=== PATIENT | male | born 1945 | race Caucasian/White ===

== ENCOUNTER 2022-05-20 16:17 | Emergency (ER) | payer MEDICARE, SELFPAY ==
[2022-05-20 16:18] VITALS: BP 144/99; PULSE 120; RESP 16; TEMP 36.2; O2SAT 97; BMI 32.3
--- NOTE | 2022-05-20 16:59 | CT_ITS ---
STUDY: CT ABDOMEN AND PELVIS WITHOUT CONTRAST REASON FOR EXAM: Male, 77 years old. Flank pain -- Right flank pain. History of kidney stones RADIATION DOSAGE (If Supplied By Facility): CTDIvol = ( 21.46 ) mGy, DLP = ( 1115.07 ) mGycm TECHNIQUE: Transaxial images were obtained from the dome of the diaphragm to the symphysis pubis without oral contrast, and without intravenous contrast. Sagittal and coronal images were reconstructed. Individualized dose optimization techniques were used for this CT. COMPARISON: January 28, 2013 FINDINGS: The visualized lung bases are unremarkable. Cardiomegaly. Calcific coronary artery disease. Calcific granulomas noted throughout the liver and spleen. Normal gallbladder and extrahepatic biliary system. Normal pancreas. Normal bilateral adrenal glands. Punctate nonobstructing nephrolith on the right x2. 19 mm simple left renal cortical cyst. Normal visualized stomach. Normal small intestine. Increased stool throughout the colon. Colonic diverticulosis. The appendix is visualized and appears normal. Normal abdominal aorta. Normal inferior vena cava. Normal retroperitoneum. Normal urinary bladder. Bilateral fat-containing inguinal hernias. Fat-containing umbilical hernia. Multiple phleboliths in the pelvis.. Mild scoliosis. Multilevel vacuum disc phenomena and spondylosis. Total arthroplasty on the right. CT/Abdomen/Pelvis without Cont IMPRESSION: Punctate nonobstructive nephrolithiasis on the right. Electronically Signed: Gomez Kasper MD at 18:02 EST ,
--- NOTE | 2022-05-20 17:00 | ED.VIS.GI ---
HPI HPI - GI History of Present Illness Chief Complaint: Flank Pain Detail of Chief Complaint: Right flank pain for 4 to 5 days. Informant: patient Abdominal Pain/Flank Pain Onset: Days Context: Gradual Onset Timing: Intermittent Location: Right Flank Current Severity: Gone Maximum Severity: Moderate Worsened by: Nothing Relieved by: Nothing Nausea/Vomiting/Emesis GI Symptom: Negative for Nausea or Vomiting Diarrhea/Melena/Hematochezia GI Symptom: Negative for Diarrhea, Melena or Hematochezia Associated Symptoms Associated Symptoms: Negative for Dysuria, Frequency, Hematuria or Urgency Narrative Narrative: 77-year-old male history of prior kidney stone 25 years ago. No surgery. Also history of [id number] diabetes, A. fib on warfarin. States for the last 4 to 5 days has had intermittent right flank pain that radiates to his groin. No dysuria or hematuria. No difficulty urinating. No fever or chills. Denies any nausea, vomiting or diarrhea. Currently he is pain-free. Prior similar symptoms: Yes Recent Illness/Hospitalization: No PFSH PFSH Medical History (Updated 05/20/22 @ 20:[address] Ector Barakat MD) Atrial fibrillation Diabetes Hypertension Kidney stones Home Medications atorvastatin 40 mg tablet 40 mg PO QHS 05/20/22 [History Last Taken Unknown] glimepiride 2 mg tablet 2 mg PO DAILY 05/20/22 [History Last Taken Unknown] losartan 50 mg tablet 100 mg PO DAILY 05/20/22 [History Last Taken Unknown] metformin 500 mg tablet 1,000 mg PO BID 05/20/22 [History Last Taken Unknown] metoprolol succinate 100 mg tablet,extended release 24 hr 100 mg PO DAILY 05/20/22 [History Last Taken Unknown] warfarin 2 mg tablet 4 mg PO SUTUTHSA 05/20/22 [History Last Taken Unknown] warfarin 2 mg tablet 6 mg PO QMWF 05/20/22 [History Last Taken Unknown] Allergy/AdvReac Type Severity Reaction Status Date / Time No Known Allergies Allergy Verified 05/20/22 16:18 Social History Smoking Status: Former smoker ROS ROS ED ROS Narrative Intermittent right flank pain. Review of Systems ROS Unobtainable: Denies due to encephalopathy Constitutional Constitutional ED: Denies chills or fever(s) ENT ENT ED: Denies ear pain Cardiovascular Cardiovascular: Denies chest pain Respiratory/Chest Respiratory/Chest: Denies cough or dyspnea Gastrointestinal Gastrointestinal: Reports abdominal pain Genitourinary Genitourinary ED: Denies dysuria or hematuria Musculoskeletal Musculoskeletal: Reports back pain; Denies arthralgias Integumentary Denies abscess Neurologic Neurologic: Denies headache(s) Psychiatric Psychiatric: Denies anxiety Endocrine Endocrinology: Denies polydipsia Hematologic/Lymphatic Hematologic/Lymphatic: Denies easy bleeding Allergic/Immunologic Allergic/Immunologic ED: Denies mouth swelling or tongue swelling EXAM Physical Exam Narrative Exam Narrative: 77-year-old male no acute distress. Vital signs stable afebrile. H EENT exam unremarkable. Moist Riis membranes. Neck nontender no lymphadenopathy. Lungs clear to auscultation. Heart regular rhythm no murmur. Abdomen soft nontender. Normal bowel sounds no peritoneal signs. Patient moving all 4 extremities. Neurovascular intact. Nontender no edema. Back nontender. Neurologically is awake and alert. No focal motor deficits. Const Vital Signs: 05/20/22 16:18 05/20/22 18:11 Temperature 97.2 F L Temperature Source Temporal Pulse Rate 120 H Respiratory Rate 16 16 Blood Pressure 144/99 H Blood Pressure Mean 114 Pulse Ox 97 Oxygen Delivery Method Room Air Positive well nourished, well developed and obese; Negative for cachectic, contractures or unkempt General Appearance ED: well developed and NAD; Negative for unkempt, cachectic, contractures or pallor Nutritional Appearance: obese; Negative for cachectic HEENT Reports moist mucous membranes normocephalic and atraumatic; Negative for trauma or tenderness Eyes PERRL and EOMs intact bilaterally General Eye ED: Negative for pale conjunctiva or scleral icterus Neck no lymphadenopathy, supple and no JVD General: Negative for tenderness Carotids: Negative for other Lymph Lymphatic: Negative for other Resp normal respiratory effort and clear to auscultation bilaterally Effort and Inspection: Negative for respiratory distress Auscultation: Negative for rales, rhonchi or wheezes Cardio regular rate, regular rhythm, S1 normal heart sound, S2 normal heart sound and no murmurs Rate: Negative for bradycardia Rhythm: Negative for abnormal rhythm GI non-tender, non-distended and no masses Inspection: Negative for abdominal distention Auscultation: normoactive bowel sounds Palpation: soft; Negative for tender, guarding or rigid Back/Spine no CVA tenderness General Back: Negative for CVA tenderness Cervical Spine: Negative for cervical spine tenderness Thoracic Spine / Upper Back: Negative for thoracic spinal tenderness Lumbar Spine / Lower Back: Negative for lumbar spinal tenderness Coccyx: Negative for other Extremity full ROM General Extremety ED: Negative for edema or tenderness General Extremity: Negative for edema Neuro CN's II-XII intact bilaterally and moves all extremities Sensorium / Orientation: alert, oriented to person, oriented to place and oriented to time; Negative for orientation impaired, confused, lethargic or stuporous Motor Exam: strength 5/5 throughout; Negative for general weakness Psych mental status grossly normal and thought process normal Appearance: Negative for unkempt Attitude: No agitated Mood & Affect: Negative for depressed, anxious or tearful Skin no wounds General Skin Exam: Negative for jaundice or pallor Lesions: no lesions Rashes: no rashes Trauma: Negative for abrasion Nails: Negative for discolored MDM MDM MDM Narrative Medical decision making narrative: 77-year-old male with right flank pain. Kidney stone 25 years ago. No prior surgery for that. Having intermittent right flank pain. CAT scan labs pending. Currently does not want or need anything for pain or nausea. Repeat exam patient doing well at 8:05 PM. He and I went over his CAT scan and lab results. On repeat exam it appears that this is musculoskeletal right flank and paravertebral soft tissue pain. He will be discharged home. Tylenol for pain. Hot shower, warm bath and massage. Follow-up if not improving or return if worse. Lab Data Attestation: I reviewed the patient's lab results. Lab results narrative: CBC unremarkable white count 10.8. H&H 13.5 and 41. Electrolytes show a gap of 4 BUN of 25 creatinine 1.1. Glucose 121. UA negative no white or red cells. No nitrates nor bacteria. CAT scan shows a right renal stone but no acute ureteral calculi or obstruction. Read by the radiologist. Labs: Laboratory Results - last 24 hr 05/20/22 05/20/22 05/20/22 17:10 17:13 17:13 WBC 10.8 RBC 4.38 L Hgb 13.5 Hct 41.4 MCV 94.5 H MCH 30.8 MCHC 32.6 RDW Std Deviation 47.2 H RDW Coeff of Risa 13.6 Plt Count 276 MPV 10.6 Immature Gran % (Auto) 0.400 Neut % (Auto) 68.7 Lymph % (Auto) 21.7 [place] % (Auto) 8.0 Eos % (Auto) 0.8 Baso % (Auto) 0.4 Absolute Neuts (auto) 7.4 Absolute Lymphs (auto) 2.34 Nucleated RBC % 0 Sodium 141 Potassium 4.5 Chloride 106 Carbon Dioxide 31.0 Anion Gap 4 L BUN 25 H Creatinine 1.16 Estim Creat Clear Calc 59.46 Est GFR (MDRD) Af Amer 79 Est GFR (MDRD) Non-Af 65 BUN/Creatinine Ratio 21.6 H Glucose 121 H Calcium 9.6 Total Bilirubin 0.60 AST 17 ALT 29 Alkaline Phosphatase 57 Total Protein 8.1 Albumin 4.0 Globulin 4.1 Albumin/Globulin Ratio 1.0 Urine Color Yellow Urine Clarity Clear Urine pH 6.5 Ur Specific [place] 1.020 Urine Protein 15 H Urine Glucose (UA) Normal Urine Ketones Negative Urine Occult Blood 10 H Urine Nitrite Negative Urine Bilirubin Negative Urine Urobilinogen 1 H Ur Leukocyte Esterase Negative Urine RBC 0-5 SEEN Urine WBC 0 SEEN Ur Squamous Epith Cells 0 SEEN Urine Bacteria 0 SEEN Urine Mucus 0 SEEN Radiography Diagnostic Testing: Clinical Impression(s) from Imaging Studies Abdomen/Pelvis CT 05/20/22 16:59 IMPRESSION: Punctate nonobstructive nephrolithiasis on the right. Electronically Signed: Gomez Kasper MD at 18:02 EST Reading Location ID and State: [address] [place] [address] , Service support , Discharge Plan Triage Chief Complaint: Flank Pain ED Provider: Ector Barakat Dx/Rx/DC Orders Clinical Impression: Right flank pain, Musculoskeletal strain, History of diabetes mellitus, Chronic anticoagulation Instructions: ED Flank Pain, Uncertain Cause Prescriptions: No Action losartan 50 mg tablet 100 mg PO DAILY atorvastatin 40 mg tablet 40 mg PO QHS Label Comments: TAKE 1 TABLET BY MOUTH AT BEDTIME metformin 500 mg tablet 1,000 mg PO BID metoprolol succinate 100 mg tablet extended release 24 hr 100 mg PO DAILY glimepiride 2 mg tablet 2 mg PO DAILY warfarin [Coumadin] 2 mg Tablet 6 mg PO QMWF warfarin [Coumadin] 2 mg Tablet [facility] Primary Care Provider: Care Physician,No Primary Referrals: Diony Pinto MD [Med Staff - Industrial Manufacturing Technician] - 1 Week if not improving Care Physician,No Primary [Primary Care Provider] - Activity Restrictions/Additional Instructions: Your labs and CAT scan were unremarkable. Most likely this is musculoskeletal strain of your right lower back and flank. Hot shower, warm bath and massage and this should progressively improve. Tylenol for pain. Follow-up with your primary care provider if not improving. Disposition Disposition: Home, Self Care
[2022-05-20 17:24] LABS: Bacteria 0 SEEN /hpf (None Seen); Mucous, Urine 0 SEEN /hpf (<or=2+); Squamous Epithelial Cells - UA 0 SEEN /hpf (0-5); White Blood Cells 0 SEEN /hpf (0-5)
[2022-05-20 17:27] LABS: Absolute Lymphocyte Count 2.34 X10^3/uL (0.83-4.51); Absolute Neutrophil Count 7.4 X10^3/uL (2.0-7.7); Basophil# 0.04 X10^3/uL; Basophil% 0.4 % (0-1); Eosinophil# 0.09 X10^3/uL; Eosinophils% 0.8 % (0-5); Hematocrit 41.4 % (40-54); Hemoglobin 13.5 g/dL (13.0-16.5); Lymphocyte # 2.34 X10^3/ul (0.83-4.51); Lymphocyte % 21.7 % (19-41); Mean Corp Hgb Conc 32.6 g/dL (32-36); Mean Corpuscular Hgb 30.8 pg (27.0-32.0); Mean Corpuscular Volume 94.5 fL (80-94); Mean Platelet Vol. 10.6 fl (6.2-12.0); Monocyte# 0.86 X10^3/uL; NRBC Flagged by Analyzer 0 % (0-5); Neutrophil # 7.41 X10^3/uL (2.7-7.7); Neutrophil % 68.7 % (47-70); Platelet Count 276 K/mm3 (150-450); RBC Distribution Width CV 13.6 % (11.6-14.6); RBC Distribution Width SD 47.2 fl (35.1-43.9); Red Blood Count 4.38 M/mm3 (4.6-6.2); White Blood Count 10.8 K/mm3 (4.4-11.0)
[2022-05-20 17:27] LABS: Color, Urine Yellow (Yellow); Glucose, Dipstick Normal (Normal); Ketone-Dipstick Negative (Negative); Leukocyte Esterase-Dipstick Negative /ul (Negative); Nitrite-Dipstick Negative (Negative); Occult Blood-Urine 10 /ul (Negative); Protein-Dipstick 15 mg/dl (Negative); Urine Bilirubin Dipstick Negative (Negative); Urine Clarity Clear (Clear); Urine Urobilinogen 1 mg/dl (Normal); Urine pH 6.5 (5.0 - 8.0)
[2022-05-20 17:41] LABS: AST(SGOT) 17 U/L (15-37); Alanine Aminotransfer ALT/SGPT 29 U/L (16-61); Alkaline Phosphatase 57 U/L (45-117); Anion Gap 4 (5-15); BUN 25 mg/dL (7-18); BUN/Creat Ratio 21.6 RATIO (10-20); Calcium,Total 9.6 mg/dL (8.5-10.1); Chloride 106 mmol/L (98-107); Creatinine, Serum 1.16 mg/dL (0.70-1.30); EST Glomerular Filtration Rate 65 mL/min (>60); Est Glom Filt Rate - Afr Amer 79 mL/min (>60); Estimated Creatinine Clearance 59.46 ml/min; Globulin 4.1 g/dL (2.2-4.2); Glucose 121 mg/dL (74-106); Potassium 4.5 mmol/L (3.5-5.1); Protein, Total 8.1 g/dL (6.4-8.2); Sodium Level 141 mmol/L (136-145)
[2022-05-20 18:11] VITALS: RESP 16
[2022-05-20 18:20] LABS: Red Blood Cells-Urine 0-5 SEEN /hpf (0-5)
--- NOTE | 2022-05-20 19:40 | CM.ED ---
SW Note Referral Source: Case Find Referral Reason: No PCP SW met with patient and introduced herself as a Data Acquisition Technician. SW inquired about patient's current PCP. Patient explained his PCP is in [place], however, he was considering changing PCPs to avoid the drive. SW provided patient with information regarding [facility] and [facility] PCPs, patient was receptive towards information provided. Chela Bazzi MSW, NASRA
== END 2022-05-20 20:19 | disposition home or self-care (01) ==
PROVIDERS: Emergency Provider Emergency Medicine; Visit Provider Emergency Medicine
DX: R10.9 Unspecified abdominal pain (principal); I48.91 Unspecified atrial fibrillation; E11.9 Type 2 diabetes mellitus without complications; E66.9 Obesity, unspecified; I10 Essential (primary) hypertension; Z79.01 Long term (current) use of anticoagulants; Z79.84 Long term (current) use of oral hypoglycemic drugs; Z87.891 Personal history of nicotine dependence
CPT/HCPCS: 74176; 80053; 81001; 85025; 99283; A4216

== ENCOUNTER 2024-09-20 17:33 | Inpatient (IN) | payer MEDICARE, SELFPAY ==
[2024-09-20] VITALS (24 sets, daily range): BP systolic 117–172; BP diastolic 54–88; PULSE 107–143; RESP 20–36; TEMP 36.8–37.6; O2SAT 90–98; BMI 29.7; BMI 29.2
--- NOTE | 2024-09-20 18:14 | EKG12_ITS ---
Test Reason : SOB Blood Pressure : */* mmHG Vent. Rate : 108 BPM Atrial Rate : * BPM P-R Int : * ms QRS Dur : 126 ms QT Int : 348 ms P-R-T Axes : * -14 26 degrees QTcB Int : 466 ms Atrial fibrillation with rapid ventricular response Right bundle branch block Abnormal ECG Confirmed by RODGER RUIZ, JDA ([id number]), offline editor WENDY PACHECO ([id number]) on 09/21/2024 8:30:42 AM Referred By: Confirmed By: JAD SOARES MD
[2024-09-20] MEDS: MethylPREDNISolone 125 MG/2 ML Vial IV (18:25)
[2024-09-20] MEDS: 0.9% Normal Saline (1000mL) 1,000 ML 999 ML IV (18:25)
[2024-09-20 18:26] LABS: Absolute Lymphocyte Count 0.66 X10^3/uL (0.83-4.51); Absolute Neutrophil Count 11.7 X10^3/uL (2.0-7.7); Basophil# 0.05 X10^3/uL; Basophil% 0.4 % (0-1); Eosinophil# 0.05 X10^3/uL; Eosinophils% 0.4 % (0-5); Hematocrit 38.4 % (40-54); Lymphocyte # 0.66 X10^3/ul (0.83-4.51); Lymphocyte % 4.8 % (19-41); Mean Corp Hgb Conc 33.9 g/dL (32-36); Mean Corpuscular Hgb 31.7 pg (27.0-32.0); Mean Corpuscular Volume 93.7 fL (80-94); Mean Platelet Vol. 11.4 fl (6.2-12.0); Monocyte# 1.33 X10^3/uL; Monocyte% 9.6 % (0-10); NRBC Flagged by Analyzer 0 % (0-5); Neutrophil # 11.66 X10^3/uL (2.7-7.7); Neutrophil % 84.1 % (47-70); POSITIVE MORPHOLOGY YES; Platelet Count 209 K/mm3 (150-450); RBC Distribution Width CV 14.4 % (11.6-14.6); RBC Distribution Width SD 49.1 fl (35.1-43.9); White Blood Count 13.8 K/mm3 (4.4-11.0)
[2024-09-20 18:28] LABS: Differential Indicated SCAN CRITERIA MET
[2024-09-20] MEDS: Ipratropium/Albuterol Sulfate 3 ML AMPUL.NEB 9 ML INHALATION (18:36)
--- NOTE | 2024-09-20 18:41 | ED.VIS.DYS ---
HPI History of Present Illness Chief Complaint: Shortness of Breath Narrative Narrative: Chief complaint and HPI: Shortness of breath, body aches, cough. Patient is a very poor historian. 79-year-old male with past medical history of atrial fibrillation on Coumadin, DM, HLD, chronic low back pain presents for evaluation of shortness of breath, cough, body aches. Onset of symptoms this weekend. has similar symptoms. Patient endorses decreased p.o. intake. He denies any chest pain, abdominal pain, nausea, vomiting, diarrhea, dysuria. Review of systems: See HPI Medications: As listed on the chart Allergies: As listed on the chart PFSH: Per chart Vital signs: As listed on the chart. Reviewed. Physical exam: Gen: A&O x3 but poor historian, unwell appearing Head: Normocephalic, atraumatic Eyes: No sclera icterus, conjunctiva clear, PERRL, EOMI ENT: Moist mucous membranes Neck: Trachea midline, No JVD CV: Irregular irregular rhythm but tachycardic, no murmurs, no peripheral edema Resp: Lungs diminished bilaterally and coarse with wheezing, dyspneic, tachypneic GI: Abd soft, non-distended, non-tender, no r/r/g Musc: Full ROM, no deformity Skin: Warm, dry Neuro: Alert, oriented, grossly intact, sensation intact Psych: Cooperative, appropriate mood and affect [facility] Medical History Kidney stones Diabetes Atrial fibrillation Hypertension Home Medications ?Medication ?Instructions ?Recorded ?Last Taken ?Type atorvastatin 40 mg tablet 40 mg PO QHS CHOLESTEROL 05/20/22 Unknown History glimepiride 2 mg tablet 2 mg PO DAILY DIABETES 05/20/22 Unknown History losartan 50 mg tablet 100 mg PO DAILY BLOOD PRESSURE 05/20/22 Unknown History metformin 500 mg tablet 1,000 mg PO BID DIABETES 05/20/22 Unknown History metoprolol succinate 100 mg 100 mg PO DAILY BLOOD PRESSURE AND 05/20/22 Unknown History tablet,extended release 24 hr HEART RATE warfarin 2 mg tablet 4 mg PO SUTUTHSA 05/20/22 Unknown History warfarin 2 mg tablet 6 mg PO QMWF 05/20/22 Unknown History Allergy/AdvReac Type Severity Reaction Status Date / Time No Known Allergies Allergy Verified 09/20/24 17:36 Surgical History History of hip replacement History of knee replacement Social History Smoking Status: Former smoker EXAM Physical Exam Const Vital Signs: 09/20/24 17:34 09/20/24 17:36 09/20/24 17:57 Temperature 98.3 F 98.3 F Temperature Source Oral Oral Pulse Rate 124 H 124 H 121 H Respiratory Rate 36 H 36 H 36 H Respiratory Effort Respiratory Depth Respiratory Pattern Blood Pressure 140/83 H 140/83 H 139/71 H Blood Pressure Mean 102 102 93 Pulse Ox 92 92 93 Oxygen Delivery Method Room Air Room Air Room Air Fraction of Inspired Oxygen (FIO2) 09/20/24 17:57 09/20/24 18:18 09/20/24 18:36 Temperature Temperature Source Pulse Rate 141 H Respiratory Rate 36 H Respiratory Effort Short of Breath Labored Respiratory Depth Shallow Respiratory Pattern Tachypnea Tachypnea Blood Pressure Blood Pressure Mean Pulse Ox 93 Oxygen Delivery Method Room Air Room Air Fraction of Inspired Oxygen (FIO2) 09/20/24 18:42 09/20/24 19:00 09/20/24 19:05 Temperature 98.9 F 99.6 F H Temperature Source Oral Temporal Pulse Rate 138 H 143 H 137 H Respiratory Rate 24 H 30 H 34 H Respiratory Effort Respiratory Depth Respiratory Pattern Blood Pressure 172/81 H 172/61 H Blood Pressure Mean 111 98 Pulse Ox 93 92 90 Oxygen Delivery Method Room Air Room Air Fraction of Inspired Oxygen (FIO2) 09/20/24 19:15 09/20/24 19:21 09/20/24 19:30 Temperature Temperature Source Pulse Rate 139 H 137 H 133 H Respiratory Rate 34 H 36 H 29 H Respiratory Effort Respiratory Depth Respiratory Pattern Tachypnea Blood Pressure 146/87 H 140/84 H Blood Pressure Mean 102 99 Pulse Ox 97 96 Oxygen Delivery Method Airvo Fraction of Inspired Oxygen (FIO2) 28 09/20/24 19:31 09/20/24 20:00 Temperature 99.3 F H Temperature Source Pulse Rate 123 H 130 H Respiratory Rate 33 H 27 H Respiratory Effort Respiratory Depth Respiratory Pattern Blood Pressure 140/84 H 117/54 L Blood Pressure Mean 102 75 Pulse Ox 97 95 Oxygen Delivery Method Airvo Fraction of Inspired Oxygen (FIO2) MDM MDM MDM Narrative Medical decision making narrative: 79-year-old male with past medical history of atrial fibrillation on Coumadin, DM, HLD, chronic low back pain presents for evaluation of shortness of breath, cough, body aches. On presentation, patient is tachycardic with increased work of breathing. See physical exam findings. Differential diagnosis includes but is not limited to pneumonia, COVID-19 infection, influenza, electrolyte abnormality, CHRISS, UTI, ACS. Patient made a sepsis alert. NS bolus ordered. 30 cc/kg bolus not given given patient's respiratory status and concern for worsening decline of status. Patient is not hypotensive. Rocephin and azithromycin ordered for suspected pneumonia. Solu-Medrol and DuoNebs ordered for symptoms. If patient's increased work of breathing does not improve he will likely need BiPAP versus Airvo. Laboratory workup ordered including chest x-ray. EKG reviewed. CBC with leukocytosis of 13.8. No anemia. INR therapeutic at 2.8. CMP without significant electrolyte abnormality or CHRISS. Patient does have hyperglycemia. He is a known diabetic. No transaminitis. Lactic acid unremarkable. Troponin unremarkable. Chest x-ray concerning for pneumonia. Patient already received antibiotics. On reevaluation, patient still has increased work of breathing and his tachycardia has worsened to the 140s. VBG relatively unremarkable. Patient placed on Airvo instead of BiPAP. Although patient's tachycardia is likely responsive to his current infection we will give metoprolol to improve heart rate. Patient is positive for influenza. Tamiflu ordered. On reevaluation, patient's work of breathing has improved on Airvo. His tachycardia has improved to the 110s. Patient will warrant admission. He was updated of all the results and the plan. He confirmed understanding. Patient was discussed with Dr. Altamirano. He accepted admission however given chest x-ray read concerning for possible underlying mass he is recommending CT chest without PE ordered. This was ordered. Patient will be admitted to the ICU. EKG: Interpreted by me/EM physician: EKG shows atrial fibrillation with RVR. Right bundle branch block. Heart rate 108. Diagnostic: Interpreted by me/EM physician: Chest x-ray with bilateral pulmonary infiltrates. Concerning for pneumonia. Per radiology short-term follow-up is recommended if this persists, CT chest chest should be performed to rule out underlying mass. 35 minutes of critical care time utilized in managing the patient. This is due to high probability of and deterioration of the patient based on the patient's condition and excludes any separately billable procedures. Impression: 1. Sepsis secondary to pneumonia 2. Influenza A infection 3. A-fib with RVR 4. Hyperglycemia in known diabetic Lab Data Labs: Laboratory Results - last 24 hr 09/20/24 09/20/24 09/20/24 17:53 17:54 19:03 WBC 13.8 H RBC 4.10 L Hgb 13.0 Hct 38.4 L MCV 93.7 MCH 31.7 MCHC 33.9 RDW Std Deviation 49.1 H RDW Coeff of Risa 14.4 Plt Count 209 MPV 11.4 Immature Gran % (Auto) 0.700 Neut % (Auto) 84.1 H Lymph % (Auto) 4.8 L [place] % (Auto) 9.6 Eos % (Auto) 0.4 Baso % (Auto) 0.4 Absolute Neuts (auto) 11.7 H Absolute Lymphs (auto) 0.66 L Nucleated RBC % 0 Platelet Estimate A PT 30.1 H INR 2.8 APTT 52.3 H Sodium 133 Potassium 4.7 Chloride 98 Carbon Dioxide 21.5 Anion Gap 14 BUN 41 H Creatinine 1.19 Estim Creat Clear Calc 62.48 Est GFR (MDRD) Non-Af 63 BUN/Creatinine Ratio 34.2 H Glucose 248 H Hemoglobin A1c 6.9 Lactic Acid 1.1 Calcium 9.7 Total Bilirubin 0.79 AST 36 ALT 23 Alkaline Phosphatase 62 Troponin T High Sens 14 Total Protein 7.7 Albumin 4.0 Globulin 3.8 Albumin/Globulin Ratio 1.1 Urine Color Yellow Urine Clarity Clear Urine pH 6.0 Ur Specific [place] 1.020 Urine Protein 100 H Urine Glucose (UA) 250 H Urine Ketones Negative Urine Occult Blood 150 H Urine Nitrite Negative Urine Bilirubin Negative Urine Urobilinogen Normal Ur Leukocyte Esterase Negative Urine RBC 0-5 SEEN Urine WBC 0-5 SEEN Ur Squamous Epith Cells 0 SEEN Urine Bacteria 1+ Urine Mucus 0 SEEN Urine Opiates Screen NEGATIVE U Buprenorphine Qual NEGATIVE Ur Oxycodone Screen NEGATIVE Urine Methadone Screen NEGATIVE Urine Fentanyl Screen NEGATIVE Ur Barbiturates Screen NEGATIVE Ur Phencyclidine Scrn NEGATIVE Ur Amphetamines Screen NEGATIVE U Benzodiazepines Scrn NEGATIVE Urine Cocaine Screen NEGATIVE U Cannabinoids Screen NEGATIVE ABG Data ABG results: ABG 09/20/24 19:03 Specimen Type OSCAR Sample Site Not entered VBG pH 7.39 VBG pO2 33 VBG HCO3 25 VBG Total CO2 26 VBG O2 Sat (Calc) 62 VBG Base Excess -1 POC Mix VBG pCO2 Pt Tmp 40.8 L O2 Delivery Device Room Air Radiography Diagnostic Testing: Clinical Impression(s) from Imaging Studies Chest X-Ray 09/20/24 18:45 IMPRESSION: Bilateral pulmonary infiltrates particularly within the right hilar region. Short-term follow-up is recommended if this persists, CT chest should be performed to rule out underlying mass. No pneumothorax. Reading Location: [facility] Chest CT 09/20/24 19:45 IMPRESSION: Limited examination due to lack of IV contrast. Evaluation of hilar mass is limited. Large left lower lobe infiltrates highly worrisome for infectious process. Minor infiltrates seen within the right lower lobe which may also suggest infectious process. No definite right hilar mass is present. Lytic lesion within the right scapula may suggest metastatic disease versus myeloma. Nonobstructing right renal calculi. Short-term follow-up study with IV contrast is suggested. Other findings as above. Reading Location: [facility] Discharge Plan Disposition Disposition: Acute Care Hospital [facility] Discharge Date/Time: 09/20/24 20:44
--- NOTE | 2024-09-20 18:45 | RAD_ITS ---
PROCEDURE: CHEST 1 VIEW (PORTABLE) 09/20/2024 REASON FOR EXAM: SOB TECHNIQUE: Frontal view of the chest. COMPARISON: None. FINDINGS: The cardiac silhouette is mildly prominent. There are bilateral pulmonary infiltrates particularly within the right perihilar region. This is worrisome for infectious process. Recommend short-term follow- up until resolution. RAD/Chest 1 View (Portable) IMPRESSION: Bilateral pulmonary infiltrates particularly within the right hilar region. Sh ort-term follow-up is recommended if this persists, CT chest should be performed to rule out underlying mass. No pneumothorax. Reading Location: [id number]
[2024-09-20] MEDS: Ceftriaxone 2 GM in 0.9% Normal Saline (50mL MB+) 50 ML IV (18:52)
[2024-09-20 19:06] LABS: Mucous, Urine 0 SEEN /hpf (<or=2+); Squamous Epithelial Cells - UA 0 SEEN /hpf (0-5)
[2024-09-20 19:07] LABS: Blood Gas Specimen Type VEN; O2 Delivery Device Room Air; SITE Not entered; VBG BASE EXCESS -1 mmol/L (-1.0-3.5); VBG Bicarbonate 25 mmol/L (22-26); VBG PO2 33 mmHg (25-40); VBG SO2 62 % (50-70); VBG TCO2 26 mmol/L (23-33); VBG pCO2 40.8 mmHg (41-51); VBG pH 7.39 (7.32-7.42)
[2024-09-20 19:08] LABS: Lactic Acid 1.1 mmol/L (0.0-2.0)
[2024-09-20 19:08] LABS: ALB/GLOB Ratio 1.1 RATIO (0.9-2.4); AST(SGOT) 36 U/L (<=37); Alanine Aminotransfer ALT/SGPT 23 U/L (<=46); Alkaline Phosphatase 62 U/L (40-129); Anion Gap 14 (5-15); BUN 41 mg/dL (4-19); BUN/Creat Ratio 34.2 RATIO (10-20); Calcium,Total 9.7 mg/dL (7.6-11.0); Carbon Dioxide 21.5 mmol/L (21.0-32.0); Chloride 98 mmol/L (98-108); Creatinine, Serum 1.19 mg/dL (0.70-1.20); EST Glomerular Filtration Rate 63 (>60); Estimated Creatinine Clearance 62.48 ml/min (50-250); Globulin 3.8 g/dL (2.2-4.2); Glucose 248 mg/dL (70-99); Potassium 4.7 mmol/L (3.3-5.1); Protein, Total 7.7 g/dL (5.9-8.4); Sodium Level 133 mmol/L (133-145); Total Bilirubin 0.79 mg/dL (0.00-1.30); Troponin T High Sensitivity 14 ng/L (<=22)
[2024-09-20 19:11] LABS: Color, Urine Yellow (Yellow); Glucose, Dipstick 250 mg/dl (Normal); Ketone-Dipstick Negative (Negative); Leukocyte Esterase-Dipstick Negative /ul (Negative); Nitrite-Dipstick Negative (Negative); Occult Blood-Urine 150 /ul (Negative); Protein-Dipstick 100 mg/dl (Negative); Urine Bilirubin Dipstick Negative (Negative); Urine Clarity Clear (Clear); Urine Urobilinogen Normal (Normal)
[2024-09-20 19:19] LABS: Platelet Estimate A (ADEQ)
[2024-09-20 19:22] LABS: International Normalized Ratio 2.8; Prothrombin Time (Protime)PT. 30.1 SECONDS (11.7-14.9)
[2024-09-20 19:23] LABS: Partial Thromboplast Time 52.3 Seconds (24.1-36.2)
[2024-09-20 19:30] LABS: White Blood Cells 0-5 SEEN /hpf (0-5)
[2024-09-20 19:31] LABS: Bacteria 1+ /hpf (None Seen); Red Blood Cells-Urine 0-5 SEEN /hpf (0-5)
[2024-09-20] MEDS: Metoprolol Tartrate 5 MG/5 ML Vial IV (19:31)
[2024-09-20] MEDS: Azithromycin 500 MG in 0.9% Normal Saline (250mL Bag) 250 ML 255 MG IV (19:33)
[2024-09-20] MEDS: Oseltamivir Phosphate 75 MG Capsule PO (19:37)
--- NOTE | 2024-09-20 19:43 | PCM.HP.STD ---
[facility] - General General Date of Admission: 09/20/24 Date of Service: 09/20/24 Chief Complaint: SOB, Cough and Body Aches. HPI Narrative HATTIE VALDERRAMA, is a 79 M with a past medical history of essential hypertension; on losartan and metoprolol, history of hyperlipidemia; currently not on treatment, overweight; with BMI of 29.7 this admission, remote history of tobacco abuse (quit 1979), chronic atrial fibrillation; on warfarin, DM-2; of unknown control on metformin and glimepiride, history of renal calculi; most recent (2021 on the Right) and OA; with history of THR and TKR chronic low back pain who presents to [facility] ER complaining of shortness of breath, cough and body aches. Mr. Valderrama is a suboptimal historian at this time so information was gathered from chart, medical staff, computer and his at the bedside. According to the records he began to become ill over the weekend on Thursday, September 20, 2024 with a viral upper respiratory illness that progressively worsened with his then becoming sick with a similar viral upper respiratory illness later in the weekend. His reported to the ER provider that he had decreased oral intake and malaise with nonproductive cough and increasingly labored respirations. There is no report of fever, chills, nausea, vomiting, diarrhea, constipation, abdominal pain, dysuria, chest pain, rash or headache. In the ER his viral assay returned positive for Influenza A complicated by chest x-ray positive for bilateral pulmonary infiltrates particularly within the Right hilar region consistent with (suspected bacterial) Pneumonia with CT recommended to rule out underlying mass with a corresponding Leukocytosis of 13.8 K, low-grade Fever of 99.6 ?F and irregularly irregular pulse of ~143 bpm noted shortly after admission consistent with suspected Sepsis compounded by Atrial Fibrillation; with Rapid Ventricular Response (with INR of 2.8 present on admission) all combining to cause AE COPD with Acute Hypoxic Respiratory Failure; requiring Airvo with VBG that revealed pH 7.39/ pCO2 26 mmHg/ pO2 33 mmHg/ HCO3 25 mmol/L and 62% on room air with VBG pCO2 C mix pCO2 40.8 mmHg plus laboratory evidence of Dehydration; with BUN/creatinine ratio of 34.2 present on admission in addition to clinical evidence of Acute Metabolic Encephalopathy. He was then admitted to the ICU for ongoing care under the sepsis protocol for a stay of is expected to extend beyond 2 midnights. [facility] Medical History Kidney stones Diabetes Atrial fibrillation Hypertension Home Medications ?Medication ?Instructions ?Recorded ?Last Taken ?Type atorvastatin 40 mg tablet 40 mg PO QHS CHOLESTEROL 05/20/22 Unknown History glimepiride 2 mg tablet 2 mg PO DAILY DIABETES 05/20/22 Unknown History losartan 50 mg tablet 100 mg PO DAILY BLOOD PRESSURE 05/20/22 Unknown History metformin 500 mg tablet 1,000 mg PO BID DIABETES 05/20/22 Unknown History metoprolol succinate 100 mg 100 mg PO DAILY BLOOD PRESSURE AND 05/20/22 Unknown History tablet,extended release 24 hr HEART RATE warfarin 2 mg tablet 4 mg PO SUTUTHSA 05/20/22 Unknown History warfarin 2 mg tablet 6 mg PO QMWF 05/20/22 Unknown History Allergy/AdvReac Type Severity Reaction Status Date / Time No Known Allergies Allergy Verified 09/20/24 17:36 Surgical History History of hip replacement History of knee replacement Social History Smoking Status: Former smoker ROS ROS Narrative Full review of systems was not possible due to patient's metabolic encephalopathy. Vital Signs Vital Signs Vital Signs: 09/20/24 17:34 09/20/24 17:36 09/20/24 17:57 Temperature 98.3 F 98.3 F Temperature Source Oral Oral Pulse Rate 124 H 124 H 121 H Respiratory Rate 36 H 36 H 36 H Respiratory Effort Respiratory Depth Respiratory Pattern Blood Pressure 140/83 H 140/83 H 139/71 H Blood Pressure Mean 102 102 93 Pulse Ox 92 92 93 Oxygen Delivery Method Room Air Room Air Room Air 09/20/24 17:57 09/20/24 18:18 09/20/24 18:42 Temperature 98.9 F Temperature Source Oral Pulse Rate 138 H Respiratory Rate 24 H Respiratory Effort Short of Breath Labored Respiratory Depth Shallow Respiratory Pattern Tachypnea Blood Pressure 172/81 H Blood Pressure Mean 111 Pulse Ox 93 93 Oxygen Delivery Method Room Air Room Air Room Air 09/20/24 19:00 09/20/24 19:05 09/20/24 19:15 Temperature 99.6 F H Temperature Source Temporal Pulse Rate 143 H 137 H 139 H Respiratory Rate 30 H 34 H 34 H Respiratory Effort Respiratory Depth Respiratory Pattern Blood Pressure 172/61 H 146/87 H Blood Pressure Mean 98 102 Pulse Ox 92 90 Oxygen Delivery Method Room Air 09/20/24 19:30 09/20/24 19:31 Temperature Temperature Source Pulse Rate 133 H 123 H Respiratory Rate 29 H 33 H Respiratory Effort Respiratory Depth Respiratory Pattern Blood Pressure 140/84 H 140/84 H Blood Pressure Mean 99 102 Pulse Ox 96 97 Oxygen Delivery Method Airvo Airvo Weight Weight: 219 lb 4.8 oz Body Mass Index (BMI) 29.7 Physical Exam Const alert Constitutional Narrative: Moderately labored respirations with chronically ill appearance and mild confusion. General Appearance: cooperative Orientation / Consciousness: confused HEENT normocephalic, head/scalp atraumatic, hearing grossly normal bilaterally and moist oral mucous membranes Eyes PERRL, EOMs intact bilaterally and conjunctivae normal Neck no lymphadenopathy, supple and no JVD Resp Resp Narrative: Labored respirations with inspiratory and expiratory wheezing and coarse rhonchi throughout. Auscultation: rhonchi and wheezes Cardio Cardio Narrative: Irregularly irregular at ~130-140 bpm. GI normal to inspection, nondistended, normoactive bowel sounds, soft to palpation, non-tender and non-distended Extremity normal to inspection, full ROM and no clubbing, cyanosis or edema Skin Skin Narrative: Patient has evidence of rash, abscess, wounds or jaundice. Neuro CN's II-XII intact bilaterally, moves all extremities and no focal motor deficits Sensorium / Orientation: awake, alert, oriented to person and oriented to place Speech: speech normal Psych affect normal Results Medical Records Data Attestation: I reviewed the patient's medical records Lab / Micro Data Attestation: I reviewed the patient's lab results. 09/20/24 17:53 09/20/24 17:53 Labs: Laboratory Results - last 24 hr 09/20/24 17:53: WBC 13.8 H, RBC 4.10 L, Hgb 13.0, Hct 38.4 L, MCV 93.7, MCH 31.7, MCHC 33.9, RDW Std Deviation 49.1 H, RDW Coeff of Risa 14.4, Plt Count 209, MPV 11.4, Immature Gran % (Auto) 0.700, Neut % (Auto) 84.1 H, Lymph % (Auto) 4.8 L, [place] % (Auto) 9.6, Eos % (Auto) 0.4, Baso % (Auto) 0.4, Absolute Neuts (auto) 11.7 H, Absolute Lymphs (auto) 0.66 L, Nucleated RBC % 0, Platelet Estimate A, PT 30.1 H, INR 2.8, APTT 52.3 H, Sodium 133, Potassium 4.7, Chloride 98, Carbon Dioxide 21.5, Anion Gap 14, BUN 41 H, Creatinine 1.19, Estim Creat Clear Calc 62.48, Est GFR (MDRD) Non-Af 63, BUN/Creatinine Ratio 34.2 H, Glucose 248 H, Calcium 9.7, Total Bilirubin 0.79, AST 36, ALT 23, Alkaline Phosphatase 62, Troponin T High Sens 14, Total Protein 7.7, Albumin 4.0, Globulin 3.8, Albumin/Globulin Ratio 1.1 09/20/24 17:54: Lactic Acid 1.1 09/20/24 19:03: Urine Color Yellow, Urine Clarity Clear, Urine pH 6.0, Ur Specific [place] 1.020, Urine Protein 100 H, Urine Glucose (UA) 250 H, Urine Ketones Negative, Urine Occult Blood 150 H, Urine Nitrite Negative, Urine Bilirubin Negative, Urine Urobilinogen Normal, Ur Leukocyte Esterase Negative, Urine RBC 0-5 SEEN, Urine WBC 0-5 SEEN, Ur Squamous Epith Cells 0 SEEN, Urine Bacteria 1+, Urine Mucus 0 SEEN Micro: Microbiology 09/20/24 18:20 Mucosa - Nose SARS-CoV-2, Influenza & RSV (PCR) - Final Influenzae A ABG Data ABG results: ABG 09/20/24 19:03 Specimen Type OSCAR Sample Site Not entered VBG pH 7.39 VBG pO2 33 VBG HCO3 25 VBG Total CO2 26 VBG O2 Sat (Calc) 62 VBG Base Excess -1 POC Mix VBG pCO2 Pt Tmp 40.8 L O2 Delivery Device Room Air Imaging Radiology Impression Chest X-Ray 09/20/24 18:45 IMPRESSION: Bilateral pulmonary infiltrates particularly within the right hilar region. Short-term follow-up is recommended if this persists, CT chest should be performed to rule out underlying mass. No pneumothorax. Reading Location: [id number] Imaging Services [address] [place] [address] [id number] Chest without Contrast MR#: [id number] Acct: [id number] Name: HATTIE VALDERRAMA Rep #: [id number] : 1945 M 79 From: Tal Negron MD PCP: Dr. Neymar De Leon MD Status: ADM IN Study: Chest without Contrast Date of Exam: 09/20/24 Exam# [id number] Ordering Dr: Stone Leong DO PROCEDURE: CHEST WITHOUT CONTRAST 09/20/2024 REASON FOR EXAM: ASSESS FOR POSSIBLE MASS TECHNIQUE: Chest CT without contrast. Coronal and Sagittal reconstruction series were provided. One or more dose reduction techniques were used (e.g., Automated exposure control, adjustment of the mA and/or kV according to patient size, use of iterative reconstruction technique RADIATION DOSE SUMMARY: DLP: 777.4 mGycm COMPARISON: Chest x-ray performed on the same date. FINDINGS: Limited examination due to lack of intravenous contrast. The trachea and central bronchial tree are patent. There is no pleural pericardial effusion. The heart is normal in size. There are calcified density within the spleen and the liver which may be suggestive of prior history of granulomatous disease. Correlate clinically. Nonobstructing right intrarenal calculi is present. Hypodense structures seen within the left kidney measuring up to 2.7 cm, incompletely characterized (best seen on image 123/138). Evaluation of lung parenchyma is limited due to respiratory motion abnormalities. Large infiltrates present within the left lower lobe, highly suggestive of pneumonia. Follow-up until clearing is recommended. Minor infiltrates also present within the medial basal segment of the right lower lobe (best seen on image 172/270), which may also be infectious in nature. Evaluation for hilar mass is limited due to lack of IV contrast. Calcified lymph nodes within the bilateral hilum, [id number] may suggest history of granulomatous disease. 2.4 cm lytic lesion seen within the right scapula best seen on image 18/138. Differential includes Mets or myeloma. Multilevel degenerative changes present within the thoracic spine. No definite acute fracture or dislocation is seen. Atheromatous calcification is seen within the aorta and its branches. CT/Chest without Contrast IMPRESSION: Limited examination due to lack of IV contrast. Evaluation of hilar mass is limited. Large left lower lobe infiltrates highly worrisome for infectious process. Minor infiltrates seen within the right lower lobe which may also suggest infectious process. No definite right hilar mass is present. Lytic lesion within the right scapula may suggest metastatic disease versus myeloma. Nonobstructing right renal calculi. Short-term follow-up study with IV contrast is suggested. Other findings as above. Reading Location: [id number] CC: Dr. Stone Leong DO; Dr. 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: Signed Assessment & Plan Assessment/Plan (1) Sepsis: QUALIFIERS: Sepsis acute organ dysfunction status: with acute organ dysfunction Sepsis type: sepsis due to unspecified organism Severe sepsis acute organ dysfunction type: encephalopathy Severe sepsis shock status: without septic shock Qualified Code(s): A41.9 - Sepsis, unspecified organism; R65.20 - Severe sepsis without septic shock; G93.41 - Metabolic encephalopathy (2) Influenza A: (3) Multifocal pneumonia: (4) COPD exacerbation: (5) Acute hypoxic respiratory failure: (6) Atrial fibrillation with RVR: (7) Dehydration: (8) Acute metabolic encephalopathy: (9) Overweight (BMI 25.0-29.9): PLAN: Plan 1. Viral assay returned positive for Influenza A with chest x-ray positive for bilateral pulmonary infiltrates particularly within the Right hilar region consistent with (suspected bacterial) Pneumonia with CT recommended to rule out underlying mass with a corresponding Leukocytosis of 13.8 K, low-grade Fever of 99.6 ?F and irregularly irregular pulse of 143 bpm noted shortly after admission consistent with suspected Sepsis - Admit to ICU for treatment under the sepsis protocol. Continue IV azithromycin begun in ER and stop ceftriaxone in favor of IV piperacillin-tazobactam to cover gram-negative's and anaerobes. CT scan of the chest without contrast is pending at this time to evaluate for possible mass given patient's former history of tobacco abuse. Check urinary antigens to Streptococcus pneumonia and Legionella. Continue oseltamivir begun in ER per protocol. Give mucolytics as needed. Give acetaminophen as needed pain or fever. 2. AE COPD with Acute Hypoxic Respiratory Failure; requiring Airvo with VBG that revealed pH 7.39/ pCO2 26 mmHg/ pO2 33 mmHg/ HCO3 25 mmol/L and 62% on room air with VBG pCO2 C mix pCO2 40.8 mmHg attributable to #1 - Check ABG to establish baseline. Continue methylprednisolone 60 mg IV twice daily. Give scheduled and as needed nebulizers. Wean Airvo as tolerated. 3. Atrial Fibrillation; with Rapid Ventricular Response (with INR of 2.8 present on admission) compounding #1 & #2 - Give digoxin IV daily with a goal to keep heart rate less than 100 bpm. Hold warfarin for one dose and then restart at ~25% of previous to prevent supratherapeutic INR. Check PT/INR daily to follow trend. 4. Dehydration; evidenced by elevated BUN/creatinine ratio of 34.2 present on admission adding to the medical complexity of #1 - #3 - Volume resuscitate and recheck renal indices daily to follow hopeful trend of improvement. Hemoccult stools. 5. Acute Metabolic Encephalopathy due to #1 - #4 - Check TSH, UDS, ANDRIA, B12 and Folate levels to evaluate for potential reversible causes of confusion. Otherwise, we will minimize COLOR RECEIVER-active medications in an attempt to allow his sensorium to clear and monitor for improvement. 6. Overweight; with BMI of 29.7 this admission adding to the burden of disease outlined from #1 - #5 - Weight loss will be recommended. Check TSH. 7. Essential Hypertension; on losartan and metoprolol - Hold scheduled antihypertensives until infections outlined in #1 have been neutralized. Give IV hydralazine as needed for systolic blood pressure greater than 160 mmHg. 8. History of hyperlipidemia; currently not on treatment - Check Lipid Profile to confirm status. 9. Remote history of tobacco abuse (quit 1979) - Noted. 10. DM-2; of unknown control on metformin and glimepiride - Hold oral hypoglycemic medications. Give ADA diet plus FSBS before every meal at bedtime and lowest-intensity SSI. Check hemoglobin A1c to objectively evaluate quality of diabetic control. 11. History of renal calculi; most recent (2021 on the Right) - Stable with no evidence of recurrence at this time. 12. OA; with history of THR and TKR chronic low back pain - Give acetaminophen prn pain or fever. 13. DVT/GI prophylaxis - Patient on warfarin with therapeutic INR of 2.8 present on admission. Check INR daily. Pantoprazole 40 mg IV daily. Total time: Approximately (but not less than) 75 minutes. Sepsis Attestation Sepsis Attestation: Sepsis Ruled Out Date exam was performed: 09/20/24 Time exam was performed: 20:30 Possible Source of Sepsis: Pulmonary Sepsis Organ Dysfunction Criteria Present: Acute Respiratory Failure (New need for BiPAP/CPAP or MV), INR > 1.5 or aPTT > 60 sec and New/Unexplained change in mental status Supportive Findings: In the ER his viral assay returned positive for Influenza A complicated by chest x-ray positive for bilateral pulmonary infiltrates particularly within the Right hilar region consistent with (suspected bacterial) Pneumonia with CT recommended to rule out underlying mass with a corresponding Leukocytosis of 13.8 K, low-grade fever of 99.6 ?F and irregularly irregular pulse of 143 bpm noted shortly after admission consistent with suspected Sepsis compounded by Atrial Fibrillation; with Rapid Ventricular Response (with INR of 2.8 present on admission) all combining to cause AE COPD with Acute Hypoxic Respiratory Failure; requiring Airvo with VBG that revealed pH 7.39/ pCO2 26 mmHg/ pO2 33 mmHg/ HCO3 25 mmol/L and 62% on room air with VBG pCO2 C mix pCO2 40.8 mmHg plus clinical evidence of Acute Metabolic Encephalopathy Fluid Resuscitation Fluid resuscitation indicated?: Yes Fluid Resuscitation ordered: Lesser volume fluid bolus ordered Amount of fluid ordered: 1 Reason for lesser fluid bolus:: Concern for fluid overload Sepsis Note Date exam was performed: 09/21/24 Time exam was performed: 00:30 Sepsis Attestation: Sepsis re-evaluation was performed Response to fluids: Fluid responsive hypotension Charges/Coding Visit Charges Inpatient E&M: 19061 Init Hosp L3
--- NOTE | 2024-09-20 19:44 | CPS ---
[1836] 9ml Duoneb given to pt. in ER.
--- NOTE | 2024-09-20 20:06 | ED.RN ---
ATTEMPTED TO CALL REPORT TO ICU. ON HOLD FOR 5 MINUTES. WILL CALLBACK
--- NOTE | 2024-09-20 20:18 | ED.RN ---
REPORT CALLED TO ICU NURSE FISH AT THIS TIME. NO FURTHER QUESTIONS FROM THE RECEIVING NURSE AT THIS TIME.
[2024-09-20 21:32] LABS: Troponin T High Sens 2 HR 12 ng/L (<=22)
[2024-09-20 21:36] LABS: Allen Test Positive; Base Excess -4 mmol/L (-2 to +2); Bicarbonate 20.5 mmol/L (22-26); Blood Gas Specimen Type ART; Mode Not entered; O2 Delivery Device HFOV; PO2 74 mmHG (75-100); SITE L Radial; SO2 95 % (95-99); Total Carbon Dioxide 22 mmol/L; pCO2 32.4 mmHg (35-45); pH 7.41 (7.35-7.45)
[2024-09-20] MEDS: Oseltamivir Phosphate 30 MG Capsule PO (21:50)
[2024-09-20] MEDS: Pantoprazole Sodium 40 MG in 0.9% Normal Saline (100mL MB+) 100 ML 330 MG IV (21:50)
[2024-09-20] MEDS: Atorvastatin Calcium 40 MG Tablet PO (21:50)
[2024-09-20] MEDS: 0.9% Saline Lock 10 ML Syringe IV (21:50)
[2024-09-20] MEDS: Cholecalciferol (Vit D3) 125 MCG CAPSULE (5,000 UNITS) PO (21:50)
[2024-09-20] MEDS: Zinc Sulfate 50 mg zinc (220 mg) ORAL capsule PO (21:50)
[2024-09-20] MEDS: 0.9% Normal Saline (1000mL) 1,000 ML 70 ML IV (21:58)
[2024-09-20] MEDS: Digoxin 250 MCG/ML Ampul IV (21:58)
[2024-09-20 22:00] LABS: Hemoglobin A1c 6.9 % (<=5.6)
[2024-09-20] MEDS: Piperacil/Tazobactam 3.375 GM in 0.9% Normal Saline (50mL MB+) 50 ML IV (22:18)
[2024-09-20] MEDS: Insulin Lispro 100 UNIT/ML INSULN.PEN SC (22:27)
[2024-09-20 22:33] LABS: Alcohol, Blood (Medical)-Serum < 10.1 mg/dL (<=10.0)
[2024-09-20 22:37] LABS: Lactic Acid 2.4 mmol/L (0.0-2.0)
[2024-09-20 22:42] LABS: Bedside Glucose 238 mg/dL (74-106)
[2024-09-20 22:48] LABS: Pro- Brain NATRIURETIC PEPTIDE 644 pg/mL (<=1800); Thyroid Stim Hormone (TSH) 0.328 uIU/mL (0.300-4.200); Vitamin B12 340 pg/mL (180-914)
[2024-09-20 23:08] LABS: Magnesium 1.7 mg/dL (1.5-2.2)
[2024-09-20 23:23] LABS: Amphetamine Urine NEGATIVE (<1000 ng/mL); Barbiturate Urine NEGATIVE (< 200 ng/mL); Benzodiazepine Urine NEGATIVE (< 200 ng/mL); Buprenorphine Urine NEGATIVE (< 200 ng/mL); Cocaine Urine NEGATIVE (< 300 ng/mL); Fentanyl, Urine NEGATIVE; Methadone Urine NEGATIVE (< 300 ng/mL); Opiates Urine NEGATIVE (< 300 ng/mL); Oxycodone, Urine NEGATIVE (< 100 ng/mL); PCP Urine NEGATIVE (< 25 ng/mL); THC Urine NEGATIVE (< 50 ng/mL)
[2024-09-21] VITALS (19 sets, daily range): BP systolic 117–154; BP diastolic 59–84; PULSE 85–119; RESP 15–30; TEMP 36.6–37.2; O2SAT 88–98; BMI 29.5
[2024-09-21 04:34] LABS: Absolute Lymphocyte Count 0.69 X10^3/uL (0.83-4.51); Absolute Neutrophil Count 11.4 X10^3/uL (2.0-7.7); Basophil# 0.02 X10^3/uL; Basophil% 0.2 % (0-1); Hematocrit 32.6 % (40-54); Hemoglobin 11.1 g/dL (13.0-16.5); Lymphocyte # 0.69 X10^3/ul (0.83-4.51); Lymphocyte % 5.4 % (19-41); Mean Corpuscular Hgb 31.4 pg (27.0-32.0); Mean Corpuscular Volume 92.1 fL (80-94); Mean Platelet Vol. 10.6 fl (6.2-12.0); Monocyte# 0.54 X10^3/uL; Monocyte% 4.3 % (0-10); NRBC Flagged by Analyzer 0 % (0-5); Neutrophil # 11.41 X10^3/uL (2.7-7.7); Neutrophil % 89.8 % (47-70); POSITIVE MORPHOLOGY YES; Platelet Count 215 K/mm3 (150-450); RBC Distribution Width CV 14.2 % (11.6-14.6); RBC Distribution Width SD 48.7 fl (35.1-43.9); Red Blood Count 3.54 M/mm3 (4.6-6.2); White Blood Count 12.7 K/mm3 (4.4-11.0)
[2024-09-21 04:41] LABS: Differential Indicated SCAN CRITERIA MET
--- NOTE | 2024-09-21 04:42 | CT_ITS ---
PROCEDURE: CT CHEST, ABD, PEL W/CONTRAST 09/21/2024 REASON FOR EXAM: SUSPECTED MASS AND PNA ON NONCONTRASTED CT. TECHNIQUE: Chest, abdomen and pelvis CT with intravenous contrast. Coronal and Sagittal reconstruction series were provided. One or more dose reduction techniques were used (e.g., Automated exposure control, adjustment of the mA and/or kV according to patient size, use of iterative reconstruction technique. PATIENT PREPARATION: Per protocol ORAL CONTRAST TYPE: None. AMOUNT: mL CONTRAST: Isovue 370 VOLUME: 100mL Gauge IV COMPARISON: CT chest 09/20/[address] abdomen and pelvis 05/20/2022 FINDINGS: CT CHEST: Hardware: None . Lymph nodes: Mildly enlarged bilateral hilar lymph nodes. For example 16 mm left hilar node (series 2, image 64) Heart and Vasculature: Cardiomegaly. No pericardial effusion. Atherosclerotic calcifications of the thoracic aorta. Pulmonary arteries are unremarkable. Lungs and Airways: Central airways are patent without endobronchial lesions. Left lower lobe consolidative opacity and scattered ground-glass opacities, likely secondary to atrophy lobar pneumonia. No suspicious pulmonary nodules. No pneumothorax. No pleural effusion. Bones: Degenerative changes of the thoracic spine. Diffuse circumferential esophageal wall thickening. CT ABDOMEN/PELVIS: Liver: Homogeneous attenuation. Scattered calcified granulomas. Gallbladder: No ductal dilation. Gallbladder is unremarkable. Spleen: No splenomegaly. Calcified granulomas. Pancreas: Normal size without evidence of mass surrounding inflammation or ductal dilation. Adrenals: Left adrenal thickening. Right adrenal gland is unremarkable. Kidneys: 8 mm medial left upper pole simple cyst. No suspicious mass or enhancement. 4 mm right inferior pole calculus without hydronephrosis. Bladder: Urinary bladder is unremarkable. Reproductive Organs: Mild prostatomegaly. Bowel: Stomach is unremarkable. No bowel dilation or wall thickening. Colonic diverticulosis without diverticulitis. Moderate colonic stool. Appendix is normal. Lymph nodes: No suspicious abdominopelvic adenopathy. Vasculature: Severe diffuse diffuse atherosclerotic calcifications are noted. Peritoneum / Retroperitoneum: No ascites. Bones: Degenerative changes of the spine. Right hip arthroplasty. CT/CT Chest, Abd, Pel w/Contrast IMPRESSION: Chest: Left lower lobe consolidative and ground-glass opacities, compatible with pneum onia. A few enlarged hilar likely reactive lymph nodes. Abdomen and pelvis: No acute findings in the abdomen and pelvis. 4 mm right inferior pole calculus, without hydronephrosis. Colonic diverticulosis without diverticulitis. Reading Location: [facility]
[2024-09-21 04:54] LABS: Cholesterol 83 mg/dL (<=200); High Density Lipoprotein 38 mg/dL; Low Density Lipoprotein Calc. 25 mg/dL; Triglycerides 102 mg/dL; Very Low Density Lipoprotein 20 mg/dL (5-40); cholesterol:hdl ratio screen 2.18
[2024-09-21 05:03] LABS: ALB/GLOB Ratio 1.1 RATIO (0.9-2.4); AST(SGOT) 24 U/L (<=37); Alanine Aminotransfer ALT/SGPT 17 U/L (<=46); Albumin, Serum 3.6 g/dL (3.4-4.8); Alkaline Phosphatase 54 U/L (40-129); Anion Gap 12 (5-15); BUN 25 mg/dL (4-19); BUN/Creat Ratio 28.5 RATIO (10-20); Calcium,Total 7.1 mg/dL (7.6-11.0); Carbon Dioxide 21.5 mmol/L (21.0-32.0); Chloride 104 mmol/L (98-108); Creatinine, Serum 0.86 mg/dL (0.70-1.20); EST Glomerular Filtration Rate 89 (>60); Estimated Creatinine Clearance 86.23 ml/min (50-250); Globulin 3.2 g/dL (2.2-4.2); Glucose 260 mg/dL (70-99); International Normalized Ratio 2.5; Potassium 4.1 mmol/L (3.3-5.1); Protein, Total 6.7 g/dL (5.9-8.4); Prothrombin Time (Protime)PT. 27.1 SECONDS (11.7-14.9); Sodium Level 137 mmol/L (133-145); Total Bilirubin 0.59 mg/dL (0.00-1.30)
[2024-09-21 05:25] LABS: PSA,Total - Annual Screen 4.91 ng/mL (0.02-4.00)
[2024-09-21] MEDS: Piperacil/Tazobactam 3.375 GM in 0.9% Normal Saline (50mL MB+) 50 ML IV (06:19)
[2024-09-21 06:26] LABS: Lactic Acid 1.6 mmol/L (0.0-2.0)
[2024-09-21 06:54] LABS: Differential Comment SCANNED
[2024-09-21] MEDS: Insulin Lispro 100 UNIT/ML INSULN.PEN SC ×4 (07:43→21:57)
[2024-09-21] MEDS: Ascorbic Acid 500 MG Tablet 1000 MG PO (07:44)
[2024-09-21] MEDS: MethylPREDNISolone 125 MG/2 ML Vial 60 MG IV ×2 (07:44→21:59)
[2024-09-21] MEDS: Zinc Sulfate 50 mg zinc (220 mg) ORAL capsule PO (07:44)
[2024-09-21] MEDS: Oseltamivir Phosphate 30 MG Capsule PO ×2 (07:44→22:01)
[2024-09-21] MEDS: Cholecalciferol (Vit D3) 125 MCG CAPSULE (5,000 UNITS) PO (07:44)
--- NOTE | 2024-09-21 07:46 | PCM.PN.HOSP ---
Reason for Visit Reason for Visit: Diagnoses Sepsis, unspecified organism (09/20/24) Overweight (09/20/24) Dehydration (09/20/24) Metabolic encephalopathy (09/20/24) Unspecified atrial fibrillation (09/20/24) Influenza due to other identified influenza virus with other respiratory manifestations (09/20/24) Pneumonia, unspecified organism (09/20/24) Chronic obstructive pulmonary disease with (acute) exacerbation (09/20/24) Acute respiratory failure with hypoxia (09/20/24) Severe sepsis without septic shock (09/20/24) Subjective Subjective Feeling well. Easiliy weaned down to nasal canula. Objective Data Objective Data Vital Signs: Vital Signs Temp Pulse Resp BP Pulse Ox O2 Del Method O2 Flow Rate 36.6 C 104 H 24 H 127/66 H 91 Airvo 50 09/21/24 06:00 09/21/24 07:00 09/21/24 07:00 09/21/24 07:00 09/21/24 07:00 09/21/24 07:00 09/21/24 07:00 FiO2 29 09/21/24 07:00 Oxygen Flow Rate (L/min) 50 Oxygen Delivery Method Airvo Weight: 98.9 kg Body Mass Index (BMI) 29.5 Intake & Output: Intake and Output for Last 24 Hours 09/19/24 09/20/24 09/21/24 23:59 23:59 23:59 Intake Total 1415 / 1415 50 / 50 Output Total 375 / 375 575 / 575 Balance 1040 / 1040 -525 / -525 Lab / Micro Data 09/21/24 04:23 09/21/24 04:23 Labs: Laboratory Results - last 24 hr 09/20/24 17:53: WBC 13.8 H, RBC 4.10 L, Hgb 13.0, Hct 38.4 L, MCV 93.7, MCH 31.7, MCHC 33.9, RDW Std Deviation 49.1 H, RDW Coeff of Risa 14.4, Plt Count 209, MPV 11.4, Immature Gran % (Auto) 0.700, Neut % (Auto) 84.1 H, Lymph % (Auto) 4.8 L, [place] % (Auto) 9.6, Eos % (Auto) 0.4, Baso % (Auto) 0.4, Absolute Neuts (auto) 11.7 H, Absolute Lymphs (auto) 0.66 L, Nucleated RBC % 0, Platelet Estimate A, PT 30.1 H, INR 2.8, APTT 52.3 H, Sodium 133, Potassium 4.7, Chloride 98, Carbon Dioxide 21.5, Anion Gap 14, BUN 41 H, Creatinine 1.19, Estim Creat Clear Calc 62.48, Est GFR (MDRD) Non-Af 63, BUN/Creatinine Ratio 34.2 H, Glucose 248 H, Hemoglobin A1c 6.9, Calcium 9.7, Total Bilirubin 0.79, AST 36, ALT 23, Alkaline Phosphatase 62, Troponin T High Sens 14, Total Protein 7.7, Albumin 4.0, Globulin 3.8, Albumin/Globulin Ratio 1.1 09/20/24 17:54: Lactic Acid 1.1 09/20/24 19:03: Urine Color Yellow, Urine Clarity Clear, Urine pH 6.0, Ur Specific [place] 1.020, Urine Protein 100 H, Urine Glucose (UA) 250 H, Urine Ketones Negative, Urine Occult Blood 150 H, Urine Nitrite Negative, Urine Bilirubin Negative, Urine Urobilinogen Normal, Ur Leukocyte Esterase Negative, Urine RBC 0-5 SEEN, Urine WBC 0-5 SEEN, Ur Squamous Epith Cells 0 SEEN, Urine Bacteria 1+, Urine Mucus 0 SEEN, Urine Opiates Screen NEGATIVE, U Buprenorphine Qual NEGATIVE, Ur Oxycodone Screen NEGATIVE, Urine Methadone Screen NEGATIVE, Urine Fentanyl Screen NEGATIVE, Ur Barbiturates Screen NEGATIVE, Ur Phencyclidine Scrn NEGATIVE, Ur Amphetamines Screen NEGATIVE, U Benzodiazepines Scrn NEGATIVE, Urine Cocaine Screen NEGATIVE, U Cannabinoids Screen NEGATIVE 09/20/24 20:35: Magnesium 1.7, Troponin T Hi Sens 2 Hr 12 09/20/24 21:43: Lactic Acid 2.4 H*, NT pro BNP II 644, Vitamin B12 340, Serum Folate 17.60, TSH 0.328, Ethyl Alcohol < 10.1 09/20/24 22:24: POC Glucose 238 H 09/21/24 04:23: WBC 12.7 H, RBC 3.54 L, Hgb 11.1 L, Hct 32.6 L, MCV 92.1, MCH 31.4, MCHC 34.0, RDW Std Deviation 48.7 H, RDW Coeff of Risa 14.2, Plt Count 215, MPV 10.6, Immature Gran % (Auto) 0.300, Neut % (Auto) 89.8 H, Lymph % (Auto) 5.4 L, [place] % (Auto) 4.3, Eos % (Auto) 0.0, Baso % (Auto) 0.2, Absolute Neuts (auto) 11.4 H, Absolute Lymphs (auto) 0.69 L, Nucleated RBC % 0, Differential Comment SCANNED, PT 27.1 H, INR 2.5, Sodium 137, Potassium 4.1, Chloride 104, Carbon Dioxide 21.5, Anion Gap 12, BUN 25 H, Creatinine 0.86, Estim Creat Clear Calc 86.23, Est GFR (MDRD) Non-Af 89, BUN/Creatinine Ratio 28.5 H, Glucose 260 H, Calcium 7.1 L, Phosphorus 2.0 L, Total Bilirubin 0.59, AST 24, ALT 17, Alkaline Phosphatase 54, Total Protein 6.7, Albumin 3.6, Globulin 3.2, Albumin/Globulin Ratio 1.1, Triglycerides 102, Cholesterol 83, LDL Cholesterol, Calc 25, VLDL Cholesterol 20, HDL Cholesterol 38 L, Cholesterol/HDL Ratio 2.18, PSA Screen 4.91 H 09/21/24 05:42: Lactic Acid 1.6 Micro: Microbiology 09/20/24 19:03 Urine, Clean Catch Legionella Antigen - Final 09/20/24 19:03 Urine, Clean Catch Streptococcus pneumoniae Antigen (M - Final 09/20/24 18:20 Mucosa - Nose SARS-CoV-2, Influenza & RSV (PCR) - Final Influenzae A ABG Data ABG results: ABG 09/20/24 09/20/24 19:03 21:31 Specimen Type OSCAR ART Sample Site Not entered L Radial pH 7.41 Bicarbonate Actual 20.5 L Total CO2 22 Base Excess -4 L O2 Saturation 95 O2 % 29.0 ABG pCO2 32.4 L ABG pO2 74 L Eliud Test Positive VBG pH 7.39 VBG pO2 33 VBG HCO3 25 VBG Total CO2 26 VBG O2 Sat (Calc) 62 VBG Base Excess -1 POC Mix VBG pCO2 Pt Tmp 40.8 L O2 Delivery Device Room Air HFOV Vent Mode Not entered Radiography Diagnostic Testing: Radiology Impression Chest X-Ray 09/20/24 18:45 IMPRESSION: Bilateral pulmonary infiltrates particularly within the right hilar region. Short-term follow-up is recommended if this persists, CT chest should be performed to rule out underlying mass. No pneumothorax. Reading Location: [facility] Chest CT 09/20/24 19:45 IMPRESSION: Limited examination due to lack of IV contrast. Evaluation of hilar mass is limited. Large left lower lobe infiltrates highly worrisome for infectious process. Minor infiltrates seen within the right lower lobe which may also suggest infectious process. No definite right hilar mass is present. Lytic lesion within the right scapula may suggest metastatic disease versus myeloma. Nonobstructing right renal calculi. Short-term follow-up study with IV contrast is suggested. Other findings as above. Reading Location: [facility] Chest/Abdomen/Pelvis CT 09/21/24 04:42 IMPRESSION: Chest: Left lower lobe consolidative and ground-glass opacities, compatible with pneumonia. A few enlarged hilar likely reactive lymph nodes. Abdomen and pelvis: No acute findings in the abdomen and pelvis. 4 mm right inferior pole calculus, without hydronephrosis. Colonic diverticulosis without diverticulitis. Reading Location: [facility] Physical Exam Const alert and no apparent distress Resp normal respiratory effort and no retractions Resp Narrative: bibasilar crackles. Cardio regular rate, regular rhythm, S1 normal heart sound and S2 normal heart sound GI normal to inspection, nondistended, normoactive bowel sounds, soft to palpation, non-tender and non-distended Extremity normal to inspection and full ROM Neuro Sensorium / Orientation: awake and alert Assessment & Plan Assessment/Plan (1) Sepsis: QUALIFIERS: Sepsis acute organ dysfunction status: with acute organ dysfunction Sepsis type: sepsis due to unspecified organism Severe sepsis acute organ dysfunction type: encephalopathy Severe sepsis shock status: without septic shock Qualified Code(s): A41.9 - Sepsis, unspecified organism; R65.20 - Severe sepsis without septic shock; G93.41 - Metabolic encephalopathy PLAN: POA. Review H+P for criteria 2/2 pneumonia/influenza. No pressors needed. CCM following. Recommending follow up chest imaging in 6-8 weeks. (2) Influenza A: PLAN: Started on oseltamivir 30 BID. (3) Acute hypoxic respiratory failure: PLAN: 2/2 influenza and pneumonia and COPD exacerbation Treat the influenza and pneumonia on methylpred, BDs wean Airvo as able. (4) Pneumonia: PLAN: Predominantly LLL Suspect pneumococcal. Possibly 2/2 influenza Continue pip/tazo for now. Start CTX and azithromycin 09/22 Strep and legionella antigens negative. SCx ordered. (5) Lytic bone lesions on xray: PLAN: Noted on CT (not xray) on Right scapula Unclear etiology. Follow up with oncology as outpt. May eventually need biopsy. This can be deferred to outpt. PLAN: Plan Elevated PSA: unclear significance at this time. Follow up with as oupt. No change in inpatient mgmt. DM2: metformin held and glimeperide. On SSI. Afib: anticoagulated with warfarin. resume metoprolol. HTN: continue losartan VTE prophylaxis: not indicated as already anticoagulated. Transfer to [facility]. Hopefuly 1-2 more days in the hospital. Charges/Coding Visit Charges Inpatient E&M: 57076 Subs Hosp L2
--- NOTE | 2024-09-21 07:53 | EX.PCM.CONCC ---
Assessment & Plan Assessment/Plan (1) Acute hypoxic respiratory failure: PLAN: Plan RECOMMENDATIONS: 1. Continue to wean supplemental oxygen to maintain saturations at or above 90%. 2. Continue Tamiflu along with empiric antimicrobials. 3. Continue corticosteroids as ordered. 4. Continue Coumadin per home regimen. 5. Encourage incentive spirometer use and mobilize patient as tolerated. 6. Recommend follow-up chest imaging in 6 to 8 weeks to document resolution of pneumonia. IMPRESSIONS: 1. Acute hypoxemic respiratory failure Appears secondary to underlying influenza A coupled with probable superimposed bacterial pneumonia. The patient has been initiated on appropriate medical therapy, including Tamiflu, antimicrobials and corticosteroids. He will be continued on supplemental oxygen to maintain saturations at or above 90%. Ultimately, I would recommend that follow-up imaging of the chest be completed in 6 to 8 weeks to document resolution of the patient's presenting consolidative opacity and ground glass changes. Encourage incentive spirometer use and mobilize patient as tolerated. 2. History of atrial fibrillation/hypertension/hyperlipidemia/diabetes mellitus Complicates care, management, recovery and prognosis. Continue home medications as indicated. Physical therapy to work with the patient. CODE STATUS: Full code (discussed with the patient this morning) This note was generated with [employer] dictation software. It may contain incorrect words, spelling, and punctuation that were not noted in checking the note before signing. HPI Consult Data Date of Consult: 09/21/24 HPI Narrative Reason for Consultation: Acute hypoxemic respiratory failure HPI Narrative: The patient is a 79-year-old male, with a history as outlined below, who presented to the emergency department on September 20 with generalized malaise, cough and shortness of breath of approximately 3 days duration. The patient's has also been ill with similar symptoms. The patient is a lifelong non-smoker. He has never been diagnosed with COPD or asthma. He does have a known history of atrial fibrillation on Coumadin along with diabetes mellitus. On presentation to the emergency department, the patient was documented to have a low-grade fever and was tachycardic and tachypneic. The patient, however, was otherwise hemodynamically stable and was initially saturating 92% on room air. Laboratory evaluation was notable for a white blood cell count of 14,000. INR was therapeutic at 2.8. Arterial blood gas demonstrated a pH of 7.4 with a pCO2 of 32 and pO2 of 74. Chemistry profile revealed a normal creatinine with a lactate of 2.4. Urine analysis was unremarkable. Toxicology screen was negative. Influenza A PCR was positive. Blood and urine cultures were collected. CT imaging of the chest demonstrated a left lower lobe consolidation with scattered groundglass opacities. The patient was ultimately placed on heated high flow oxygen and initiated on Tamiflu, antimicrobials and IV steroids. The patient was admitted to the medical intensive care unit for further management. This morning, the patient is alert and appropriately interactive. He has remained hemodynamically stable and has been weaned to nasal cannula oxygen at 3 L/min via nasal cannula. [facility] Medical History Kidney stones Diabetes Atrial fibrillation Hypertension Home Medications ?Medication ?Instructions ?Recorded ?Last Taken ?Type atorvastatin 40 mg tablet 40 mg PO QHS CHOLESTEROL 05/20/22 Unknown History glimepiride 2 mg tablet 2 mg PO DAILY DIABETES 05/20/22 Unknown History losartan 50 mg tablet 100 mg PO DAILY BLOOD PRESSURE 05/20/22 Unknown History metformin 500 mg tablet 1,000 mg PO BID DIABETES 05/20/22 Unknown History metoprolol succinate 100 mg 100 mg PO DAILY BLOOD PRESSURE AND 05/20/22 Unknown History tablet,extended release 24 hr HEART RATE warfarin 2 mg tablet 4 mg PO SUTUTHSA 05/20/22 Unknown History warfarin 2 mg tablet 6 mg PO QMWF 05/20/22 Unknown History Allergy/AdvReac Type Severity Reaction Status Date / Time No Known Allergies Allergy Verified 09/20/24 17:36 Surgical History History of hip replacement History of knee replacement Social History Smoking Status: Former smoker ROS ROS Narrative 10 systems were reviewed with pertinent positives as noted in the HPI above. Physical Exam Const alert and no apparent distress Constitutional Narrative: Resting comfortably in bed. Appropriately conversant. General Appearance: cooperative HEENT normocephalic, head/scalp atraumatic and moist oral mucous membranes Eyes EOMs intact bilaterally, conjunctivae normal and no scleral icterus Neck supple General: trachea midline Chest inspection of chest normal Resp no use of accessory muscles Effort and Inspection: able to speak in complete sentences and tachypneic Auscultation: wheezes Cardio Rate: tachycardic Rhythm: abnormal rhythm GI normal to inspection, nondistended, normoactive bowel sounds Extremity no clubbing, cyanosis or edema Skin no rashes or lesions noted Neuro CN's II-XII intact bilaterally, moves all extremities and no focal motor deficits Psych cooperative and affect normal Lab / Micro Data 09/21/24 04:23 09/21/24 04:23 Labs: Laboratory Results - last 24 hr 09/20/24 17:53: WBC 13.8 H, RBC 4.10 L, Hgb 13.0, Hct 38.4 L, MCV 93.7, MCH 31.7, MCHC 33.9, RDW Std Deviation 49.1 H, RDW Coeff of Risa 14.4, Plt Count 209, MPV 11.4, Immature Gran % (Auto) 0.700, Neut % (Auto) 84.1 H, Lymph % (Auto) 4.8 L, [place] % (Auto) 9.6, Eos % (Auto) 0.4, Baso % (Auto) 0.4, Absolute Neuts (auto) 11.7 H, Absolute Lymphs (auto) 0.66 L, Nucleated RBC % 0, Platelet Estimate A, PT 30.1 H, INR 2.8, APTT 52.3 H, Sodium 133, Potassium 4.7, Chloride 98, Carbon Dioxide 21.5, Anion Gap 14, BUN 41 H, Creatinine 1.19, Estim Creat Clear Calc 62.48, Est GFR (MDRD) Non-Af 63, BUN/Creatinine Ratio 34.2 H, Glucose 248 H, Hemoglobin A1c 6.9, Calcium 9.7, Total Bilirubin 0.79, AST 36, ALT 23, Alkaline Phosphatase 62, Troponin T High Sens 14, Total Protein 7.7, Albumin 4.0, Globulin 3.8, Albumin/Globulin Ratio 1.1 09/20/24 17:54: Lactic Acid 1.1 09/20/24 19:03: Urine Color Yellow, Urine Clarity Clear, Urine pH 6.0, Ur Specific [place] 1.020, Urine Protein 100 H, Urine Glucose (UA) 250 H, Urine Ketones Negative, Urine Occult Blood 150 H, Urine Nitrite Negative, Urine Bilirubin Negative, Urine Urobilinogen Normal, Ur Leukocyte Esterase Negative, Urine RBC 0-5 SEEN, Urine WBC 0-5 SEEN, Ur Squamous Epith Cells 0 SEEN, Urine Bacteria 1+, Urine Mucus 0 SEEN, Urine Opiates Screen NEGATIVE, U Buprenorphine Qual NEGATIVE, Ur Oxycodone Screen NEGATIVE, Urine Methadone Screen NEGATIVE, Urine Fentanyl Screen NEGATIVE, Ur Barbiturates Screen NEGATIVE, Ur Phencyclidine Scrn NEGATIVE, Ur Amphetamines Screen NEGATIVE, U Benzodiazepines Scrn NEGATIVE, Urine Cocaine Screen NEGATIVE, U Cannabinoids Screen NEGATIVE 09/20/24 20:35: Magnesium 1.7, Troponin T Hi Sens 2 Hr 12 09/20/24 21:43: Lactic Acid 2.4 H*, NT pro BNP II 644, Vitamin B12 340, Serum Folate 17.60, TSH 0.328, Ethyl Alcohol < 10.1 09/20/24 22:24: POC Glucose 238 H 09/21/24 04:23: WBC 12.7 H, RBC 3.54 L, Hgb 11.1 L, Hct 32.6 L, MCV 92.1, MCH 31.4, MCHC 34.0, RDW Std Deviation 48.7 H, RDW Coeff of Risa 14.2, Plt Count 215, MPV 10.6, Immature Gran % (Auto) 0.300, Neut % (Auto) 89.8 H, Lymph % (Auto) 5.4 L, [place] % (Auto) 4.3, Eos % (Auto) 0.0, Baso % (Auto) 0.2, Absolute Neuts (auto) 11.4 H, Absolute Lymphs (auto) 0.69 L, Nucleated RBC % 0, Differential Comment SCANNED, PT 27.1 H, INR 2.5, Sodium 137, Potassium 4.1, Chloride 104, Carbon Dioxide 21.5, Anion Gap 12, BUN 25 H, Creatinine 0.86, Estim Creat Clear Calc 86.23, Est GFR (MDRD) Non-Af 89, BUN/Creatinine Ratio 28.5 H, Glucose 260 H, Calcium 7.1 L, Phosphorus 2.0 L, Total Bilirubin 0.59, AST 24, ALT 17, Alkaline Phosphatase 54, Total Protein 6.7, Albumin 3.6, Globulin 3.2, Albumin/Globulin Ratio 1.1, Triglycerides 102, Cholesterol 83, LDL Cholesterol, Calc 25, VLDL Cholesterol 20, HDL Cholesterol 38 L, Cholesterol/HDL Ratio 2.18, PSA Screen 4.91 H 09/21/24 05:42: Lactic Acid 1.6 Micro: Microbiology 09/20/24 19:03 Urine, Clean Catch Legionella Antigen - Final 09/20/24 19:03 Urine, Clean Catch Streptococcus pneumoniae Antigen (M - Final 09/20/24 18:20 Mucosa - Nose SARS-CoV-2, Influenza & RSV (PCR) - Final Influenzae A ABG Data ABG results: ABG 09/20/24 09/20/24 19:03 21:31 Specimen Type OSCAR ART Sample Site Not entered L Radial pH 7.41 Bicarbonate Actual 20.5 L Total CO2 22 Base Excess -4 L O2 Saturation 95 O2 % 29.0 ABG pCO2 32.4 L ABG pO2 74 L Eliud Test Positive VBG pH 7.39 VBG pO2 33 VBG HCO3 25 VBG Total CO2 26 VBG O2 Sat (Calc) 62 VBG Base Excess -1 POC Mix VBG pCO2 Pt Tmp 40.8 L O2 Delivery Device Room Air HFOV Vent Mode Not entered Imaging Radiology Impression Chest X-Ray 09/20/24 18:45 IMPRESSION: Bilateral pulmonary infiltrates particularly within the right hilar region. Short-term follow-up is recommended if this persists, CT chest should be performed to rule out underlying mass. No pneumothorax. Reading Location: [id number] Chest CT 09/20/24 19:45 IMPRESSION: Limited examination due to lack of IV contrast. Evaluation of hilar mass is limited. Large left lower lobe infiltrates highly worrisome for infectious process. Minor infiltrates seen within the right lower lobe which may also suggest infectious process. No definite right hilar mass is present. Lytic lesion within the right scapula may suggest metastatic disease versus myeloma. Nonobstructing right renal calculi. Short-term follow-up study with IV contrast is suggested. Other findings as above. Reading Location: [id number] Chest/Abdomen/Pelvis CT 09/21/24 04:42 IMPRESSION: Chest: Left lower lobe consolidative and ground-glass opacities, compatible with pneumonia. A few enlarged hilar likely reactive lymph nodes. Abdomen and pelvis: No acute findings in the abdomen and pelvis. 4 mm right inferior pole calculus, without hydronephrosis. Colonic diverticulosis without diverticulitis. Reading Location: [facility] Charges/Coding Visit Charges Inpatient E&M: 11601 Init Hosp L3
[2024-09-21 08:08] LABS: Bedside Glucose 220 mg/dL (74-106)
--- NOTE | 2024-09-21 09:40 | CASEMGMT ---
TORRES MELISSA Assessment Face to Face with patient for initial transition planning/care coordination assessment. TORRES MELISSA introduced self and role at [facility], pt voices understanding. Pt is A&Ox4 and is resting comfortably in bed and is calm. Pt son (Sánchez) @ bedside. Care providers, pharmacy, and demographics verified. Admitting dx: Sepsis, Influenza A, PNA and AE COPD LACE Strata: 3 PCP: Neymar De Leon Specialists: Denies Preferred Pharmacy: [facility] Insurance: [place] MCR Prescription Benefit: Yes LNOK: Aide (W), Sánchez (son), Cassandra Li (Friend) Living Arrangements: Pt lives with his in a mobile home with a ramp to enter ADLs/IADLs: Pt states that he and his both help each other out but that he is mainly independent Transportation: Self, Landlord @ [place]. Denies concerns DME: Personal CPAP @ HS with no additional oxygen. BGM with sufficient supplies (Pt states that he recently bought more). Lift chair. FWW. Cane. Pt is currently requiring additional oxygen and may qualify for home oxygen use. A verbal list of local in-network DME companies were provided to the pt at this time. Pt prefers [facility]Pt states that his has a history with [facility]. HHC/SNF: Denies history or needs currently. Pt states that he hasa a history of OP PT in [place] and states that he did not like the experience. Pt?s goal: Home Plan: Anticipate Home with pt , follow for oxygen needs. Current 6-Click score is 19. PT is pending. At this time, the pt states that he feels safe returning home with his once he is medically ready and denies the need for HHC or OP Tx. CM to follow PT eval. Pt denies further questions or concerns at this time. CM to follow. Hector Taylor RN, CM
[2024-09-21] MEDS: Losartan Potassium 100 MG Tablet PO (09:47)
[2024-09-21] MEDS: Metoprolol(XL)Succ 100 MG Tablet PO (09:47)
[2024-09-21] MEDS: Glimepiride 2 MG Tablet PO (09:48)
[2024-09-21] MEDS: Pantoprazole Sodium 40 MG Tablet PO (10:21)
[2024-09-21] MEDS: Ceftriaxone 1 GM/50 ML BAG IV (10:21)
[2024-09-21] MEDS: Azithromycin 500 MG in 0.9% Normal Saline (250mL Bag) 250 ML 255 MG IV (12:47)
--- NOTE | 2024-09-21 16:09 | CHAPLAIN ---
Type of Pastoral Visit _x__ Initial Visit ___ Follow-up Visit ___ On-call Visit ___ General Patient Visit ___ Spiritual Assessment ___ Family Conference ___ Bereavement ___ Rapid Response ___ Code Blue ___ Other (describe below) Pastoral Care Referral From _x__ Patient ___ Family ___ Nurse ___ Physician ___ [employer] Coordinator ___ Building Service Worker ___ Other (describe below) Sacrament/Intervention _x__ Active listening ___ Anointing ___ Congregation ___ Bereavement ___ Communion ___ Eleonora exploration ___ ___ Life review _x__ Prayer ___ Reconciliation ___ Sacrament of Sick _x__ Supportive presence ___ Wedding ___ Other (describe below) Pastoral Comments patient was eating his lunch and welcoming; pt stated his situation and that of his who is also a patient; this patient speaks of feeling better already and being optimistic about his outcome; pt denies any worries; pt accepts presence and 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
[2024-09-21 17:04] LABS: Bedside Glucose 218 mg/dL (74-106)
[2024-09-21] MEDS: Lactobacillis Acidophilus 1 CAP PO ×2 (17:06→22:02)
[2024-09-21 21:52] LABS: Bedside Glucose 253 mg/dL (74-106)
[2024-09-21] MEDS: 0.9% Saline Lock 10 ML Syringe IV (21:59)
[2024-09-21] MEDS: Atorvastatin Calcium 40 MG Tablet PO (22:01)
[2024-09-21] MEDS: guaiFENesin 1,200 MG Tablet 1200 MG PO (22:02)
[2024-09-21 22:22] LABS: Bedside Glucose 226 mg/dL (74-106)
[2024-09-22 05:00] VITALS: BP 140/77; PULSE 70; RESP 20; TEMP 36.6; O2SAT 92
[2024-09-22 05:50] VITALS: BMI 29.5
[2024-09-22 06:29] LABS: Absolute Lymphocyte Count 1.06 X10^3/uL (0.83-4.51); Absolute Neutrophil Count 12.5 X10^3/uL (2.0-7.7); Basophil# 0.02 X10^3/uL; Basophil% 0.1 % (0-1); Hematocrit 35.1 % (40-54); Hemoglobin 11.7 g/dL (13.0-16.5); Lymphocyte # 1.06 X10^3/ul (0.83-4.51); Lymphocyte % 7.4 % (19-41); Mean Corp Hgb Conc 33.3 g/dL (32-36); Mean Corpuscular Volume 92.9 fL (80-94); Monocyte# 0.71 X10^3/uL; Monocyte% 4.9 % (0-10); NRBC Flagged by Analyzer 0 % (0-5); Neutrophil # 12.48 X10^3/uL (2.7-7.7); Platelet Count 250 K/mm3 (150-450); RBC Distribution Width CV 14.4 % (11.6-14.6); RBC Distribution Width SD 48.7 fl (35.1-43.9); Red Blood Count 3.78 M/mm3 (4.6-6.2); White Blood Count 14.4 K/mm3 (4.4-11.0)
[2024-09-22] MEDS: Insulin Lispro 100 UNIT/ML INSULN.PEN SC ×2 (06:37→12:07)
[2024-09-22 06:54] LABS: Anion Gap 11 (5-15); BUN 25 mg/dL (4-19); BUN/Creat Ratio 31.4 RATIO (10-20); Calcium,Total 8.8 mg/dL (7.6-11.0); Carbon Dioxide 23.6 mmol/L (21.0-32.0); Chloride 105 mmol/L (98-108); Creatinine, Serum 0.79 mg/dL (0.70-1.20); EST Glomerular Filtration Rate 91 (>60); Glucose 234 mg/dL (70-99); Phosphorus 2.1 mg/dL (2.7-4.5); Sodium Level 140 mmol/L (133-145)
[2024-09-22 07:00] VITALS: O2SAT 92
--- NOTE | 2024-09-22 07:06 | PCM.PN.HOSP ---
Reason for Visit Reason for Visit: Diagnoses Sepsis, unspecified organism (09/20/24) Overweight (09/20/24) Dehydration (09/20/24) Metabolic encephalopathy (09/20/24) Unspecified atrial fibrillation (09/20/24) Influenza due to other identified influenza virus with other respiratory manifestations (09/20/24) Pneumonia, unspecified organism (09/20/24) Chronic obstructive pulmonary disease with (acute) exacerbation (09/20/24) Acute respiratory failure with hypoxia (09/20/24) Other specified disorders of bone, unspecified site (09/20/24) Severe sepsis without septic shock (09/20/24) Subjective Subjective Feels well. Had walked earlier and had not shortness of breath. Objective Data Objective Data Vital Signs: Vital Signs Temp Pulse Resp BP Pulse Ox O2 Del Method O2 Flow Rate 36.6 C 70 20 H 140/77 H 92 Room Air 3 09/22/24 05:00 09/22/24 05:00 09/22/24 05:00 09/22/24 05:00 09/22/24 05:00 09/22/24 05:00 09/21/24 09:05 FiO2 29 09/21/24 08:00 Oxygen Flow Rate (L/min) 3 Oxygen Delivery Method Room Air Weight: 98.9 kg Body Mass Index (BMI) 29.5 Intake & Output: Intake and Output for Last 24 Hours 09/20/24 09/21/24 09/22/24 23:59 23:59 23:59 Intake Total 1415 / 1415 2203.54 / 2203.54 Output Total 375 / 375 575 / 575 Balance 1040 / 1040 1628.54 / 1628.54 Lab / Micro Data 09/22/24 05:53 09/22/24 05:53 Labs: Laboratory Results - last 24 hr 09/21/24 07:42: POC Glucose 220 H 09/21/24 12:46: POC Glucose 253 H 09/21/24 16:46: POC Glucose 218 H 09/21/24 21:55: POC Glucose 226 H 09/22/24 05:53: WBC 14.4 H, RBC 3.78 L, Hgb 11.7 L, Hct 35.1 L, MCV 92.9, MCH 31.0, MCHC 33.3, RDW Std Deviation 48.7 H, RDW Coeff of Risa 14.4, Plt Count 250, MPV 11.0, Immature Gran % (Auto) 0.600, Neut % (Auto) 87.0 H, Lymph % (Auto) 7.4 L, [place] % (Auto) 4.9, Eos % (Auto) 0.0, Baso % (Auto) 0.1, Absolute Neuts (auto) 12.5 H, Absolute Lymphs (auto) 1.06, Nucleated RBC % 0, Sodium 140, Potassium 4.0, Chloride 105, Carbon Dioxide 23.6, Anion Gap 11, BUN 25 H, Creatinine 0.79, Estim Creat Clear Calc 92.70, Est GFR (MDRD) Non-Af 91, BUN/Creatinine Ratio 31.4 H, Glucose 234 H, Calcium 8.8, Phosphorus 2.1 L Micro: Microbiology 09/20/24 18:20 Mucosa - Nose SARS-CoV-2, Influenza & RSV (PCR) - Final Influenzae A 09/20/24 19:03 Urine, Clean Catch Legionella Antigen - Final 09/20/24 19:03 Urine, Clean Catch Streptococcus pneumoniae Antigen (M - Final Radiography Diagnostic Testing: Radiology Impression Chest/Abdomen/Pelvis CT 09/21/24 04:42 IMPRESSION: Chest: Left lower lobe consolidative and ground-glass opacities, compatible with pneumonia. A few enlarged hilar likely reactive lymph nodes. Abdomen and pelvis: No acute findings in the abdomen and pelvis. 4 mm right inferior pole calculus, without hydronephrosis. Colonic diverticulosis without diverticulitis. [facility] Physical Exam Const alert and no apparent distress HEENT head/scalp atraumatic and moist oral mucous membranes Resp normal respiratory effort, no retractions, no use of accessory muscles and clear to auscultation bilaterally Cardio regular rate, regular rhythm, S1 normal heart sound and S2 normal heart sound GI normal to inspection, nondistended, normoactive bowel sounds, soft to palpation, non-tender and non-distended Neuro Sensorium / Orientation: awake Assessment & Plan Assessment/Plan (1) Sepsis: QUALIFIERS: Sepsis acute organ dysfunction status: with acute organ dysfunction Sepsis type: sepsis due to unspecified organism Severe sepsis acute organ dysfunction type: encephalopathy Severe sepsis shock status: without septic shock Qualified Code(s): A41.9 - Sepsis, unspecified organism; R65.20 - Severe sepsis without septic shock; G93.41 - Metabolic encephalopathy PLAN: POA. Review H+P for criteria 2/2 pneumonia/influenza. No pressors needed. CCM following. Recommending follow up chest imaging in 6-8 weeks. (2) Influenza A: PLAN: Started on oseltamivir 30 BID. (3) Acute hypoxic respiratory failure: PLAN: 2/2 influenza and pneumonia and COPD exacerbation Treat the influenza and pneumonia on methylpred, BDs wean Airvo as able. check home oxygen evalulation. (4) Pneumonia: PLAN: Predominantly LLL Suspect pneumococcal. Possibly 2/2 influenza Continue pip/tazo for now. Start CTX and azithromycin 09/22 Strep and legionella antigens negative. SCx ordered. 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 Follow up with oncology as outpt. May eventually need biopsy. This can be deferred to outpt. PLAN: Plan Elevated PSA: unclear significance at this time. Follow up with as oupt. No change in inpatient mgmt. DM2: metformin held and glimeperide. On SSI. Afib: anticoagulated with warfarin. resume metoprolol. HTN: continue losartan VTE prophylaxis: not indicated as already anticoagulated.
[2024-09-22 07:10] LABS: Bedside Glucose 204 mg/dL (74-106)
[2024-09-22] MEDS: Glimepiride 2 MG Tablet PO (08:16)
[2024-09-22 10:00] VITALS: BP 136/80; PULSE 93; RESP 18; TEMP 37.1; O2SAT 95
[2024-09-22] MEDS: Azithromycin 500 MG in 0.9% Normal Saline (250mL Bag) 250 ML 255 MG IV (10:18)
[2024-09-22] MEDS: guaiFENesin 1,200 MG Tablet 1200 MG PO (10:23)
[2024-09-22] MEDS: Pantoprazole Sodium 40 MG Tablet PO (10:23)
[2024-09-22] MEDS: Losartan Potassium 100 MG Tablet PO (10:24)
[2024-09-22 10:25] VITALS: BP 136/80; PULSE 93
[2024-09-22] MEDS: Metoprolol(XL)Succ 100 MG Tablet PO (10:25)
[2024-09-22] MEDS: Lactobacillis Acidophilus 1 CAP PO (10:25)
[2024-09-22] MEDS: Oseltamivir Phosphate 30 MG Capsule PO (10:26)
[2024-09-22] MEDS: MethylPREDNISolone 125 MG/2 ML Vial 60 MG IV (10:26)
[2024-09-22 11:31] LABS: Bedside Glucose 260 mg/dL (74-106)
[2024-09-22] MEDS: Ceftriaxone 1 GM/50 ML BAG IV (12:05)
--- NOTE | 2024-09-22 12:45 | PCM.DC.SUM ---
Providers Date of Admission: 09/20/24 Primary Care Physician: Dr. 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 EMERGENT Consult: No MD Notified: Yes Date Notified: 09/21/24 Time Notified: 06:17 Method of Notification: Text Reason For Visit: SEPSIS 2/2 INFLUENZA A, PNA AND AE COPD Diagnosis Discharge Diagnosis (1) Sepsis: Status: Acute Code(s): A41.9 - Sepsis, unspecified organism Qualifiers: Sepsis acute organ dysfunction status: with acute organ dysfunction Sepsis type: sepsis due to unspecified organism Severe sepsis acute organ dysfunction type: encephalopathy Severe sepsis shock status: without septic shock Qualified Code(s): A41.9 - Sepsis, unspecified organism; R65.20 - Severe sepsis without septic shock; G93.41 - Metabolic encephalopathy Plan: POA. Review H+P for criteria 2/2 pneumonia/influenza. No pressors needed. CCM following. Recommending follow up chest imaging in 6-8 weeks. (2) Influenza A: Status: Acute Code(s): J10.1 - Influenza due to other identified influenza virus with other respiratory manifestations Plan: Started on oseltamivir 30 BID. (3) Acute hypoxic respiratory failure: Status: Acute Code(s): J96.01 - Acute respiratory failure with hypoxia Plan: 2/2 influenza and pneumonia and COPD exacerbation Treat the influenza and pneumonia on methylpred, BDs wean Airvo as able. check home oxygen evalulation. (4) Pneumonia: Status: Acute Code(s): J18.9 - Pneumonia, unspecified organism Plan: Predominantly LLL Suspect pneumococcal. Possibly 2/2 influenza Continue pip/tazo for now. Start CTX and azithromycin 09/22 Strep and legionella antigens negative. SCx ordered. 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 Follow up with oncology as outpt. May eventually need biopsy. This can be deferred to outpt. Plan Elevated PSA: unclear significance at this time. Follow up with as oupt. No change in inpatient mgmt. DM2: metformin held and glimeperide. On SSI. Afib: anticoagulated with warfarin. resume metoprolol. HTN: continue losartan VTE prophylaxis: not indicated as already anticoagulated. Medications at Discharge Home Medications atorvastatin 40 mg tablet 40 mg PO QHS CHOLESTEROL 05/20/22 glimepiride 2 mg tablet 2 mg PO DAILY DIABETES 05/20/22 losartan 50 mg tablet 100 mg PO DAILY BLOOD PRESSURE 05/20/22 metformin 500 mg tablet 1,000 mg PO BID DIABETES 05/20/22 metoprolol succinate 100 mg tablet,extended release 24 hr 100 mg PO DAILY BLOOD PRESSURE AND HEART RATE 05/20/22 warfarin 2 mg tablet 4 mg PO SUTUTHSA 05/20/22 warfarin 2 mg tablet 6 mg PO QMWF 05/20/22 guaifenesin 1,200 mg tablet, extended release 12 hr (Mucus Relief ER) 1,200 mg PO BID #10 tabs 09/22/24 levofloxacin 750 mg tablet 750 mg PO DAILY #4 tabs 09/22/24 oseltamivir 30 mg capsule 30 mg PO BID #6 caps 09/22/24 prednisone 20 mg tablet 40 mg (2 x 20 mg) PO DAILY #10 tabs 09/22/24 Hospital Course Operations None Procedures None Summary of Care Provided Minutes Spent on Discharge: 32 Hospital Course: Patient presents with shortness of breath and was found to have a left lower lobe pneumonia as well as influenza. Patient was treated for bacterial pneumonia as well as influenza A. Patient will be discharged continue his course of Tamiflu as well as antibiotics with levofloxacin. Patient had a chest CT that showed a lytic lesion within the right scapula. Etiology which was unclear. He did subsequently undergo CT of the chest abdomen pelvis that showed no masses anywhere. Patient was seen in consultation by pulmonology recommends outpatient CT to see about resolution of his pneumonia. And with that CT they can further evaluate his scapular lesion if that something significant that would warrant further evaluation such as a biopsy or not. Weight / BMI Weight Weight: 98.9 kg Body Mass Index (BMI) 29.5 ABG / Lab / Microbiology Data 09/22/24 05:53 09/22/24 05:53 Laboratory: Laboratory Results - last 24 hr 09/21/24 12:46: POC Glucose 253 H 09/21/24 16:46: POC Glucose 218 H 09/21/24 21:55: POC Glucose 226 H 09/22/24 05:53: WBC 14.4 H, RBC 3.78 L, Hgb 11.7 L, Hct 35.1 L, MCV 92.9, MCH 31.0, MCHC 33.3, RDW Std Deviation 48.7 H, RDW Coeff of Risa 14.4, Plt Count 250, MPV 11.0, Immature Gran % (Auto) 0.600, Neut % (Auto) 87.0 H, Lymph % (Auto) 7.4 L, [place] % (Auto) 4.9, Eos % (Auto) 0.0, Baso % (Auto) 0.1, Absolute Neuts (auto) 12.5 H, Absolute Lymphs (auto) 1.06, Nucleated RBC % 0, PT 25.7 H, INR 2.3, Sodium 140, Potassium 4.0, Chloride 105, Carbon Dioxide 23.6, Anion Gap 11, BUN 25 H, Creatinine 0.79, Estim Creat Clear Calc 92.70, Est GFR (MDRD) Non-Af 91, BUN/Creatinine Ratio 31.4 H, Glucose 234 H, Calcium 8.8, Phosphorus 2.1 L 09/22/24 06:36: POC Glucose 204 H 09/22/24 11:12: POC Glucose 260 H Microbiology: Microbiology 09/20/24 18:20 Mucosa - Nose SARS-CoV-2, Influenza & RSV (PCR) - Final Influenzae A 09/20/24 19:03 Urine, Clean Catch Legionella Antigen - Final 09/20/24 19:03 Urine, Clean Catch Streptococcus pneumoniae Antigen (M - Final D/C Instructions Discharge Diet: No restrictions DC O2, CPAP, BIPAP Needs PSN CPAP & BiPAP: BiPAP & CPAP Settings per PSN Mode AIRVO 09/21/24 07:05 Bipap Delivery Device Nasal Pillows 09/21/24 07:05 Fraction of Inspired Oxygen ( 29 09/21/24 08:00 FIO2) Total Flow Rate 50 09/21/24 07:05 Home O2 Discharge instructions: No Meaningful Use Info Meaningful Use Meaningful Use Diagnoses (Choose all that apply): None applicable Ischemic Stroke Statin Dosing Therapy Reference: STATIN DOSE THERAPY REFERENCE: * Patients > 75 years receive moderate or high dose statin therapy. * Patients 75 years or YOUNGER should receive HIGH intensity statin dose unless contraindicated. You will be required to document reason for non-treatment if statin daily dose does not meet guidelines. HIGH DOSE STATIN THERAPY DAILY Atorvastatin > than or = to 40 mg Rosuvastatin > than or = to 20 mg Amlodipine + Atorvastatin > than or = to 2.5/40 mg Ezetimibe + Simvastatin 10/80 mg Simvastatin 80mg Discharge Plan Admission Admit Date/Time: 09/20/24 20:11 Primary Reason for Your Visit: Pneumonia Attending Provider: Marcelino Gracia Primary Care Provider: Neymar De Leon Consulting Providers: Zeferino Estrada Instructions Additional Instructions / Restrictions: He had pneumonia as well as influenza. He will be on antibiotics with Levaquin and treatment for the influenza with Tamiflu. Because of the amount of pneumonia that you had to recommend that you get a follow-up CAT scan in about 6 to 8 weeks to see about resolution. It was noted on 1 your CAT scans but not both, that you may have something on your right scapula (shoulder blade). Unclear what that is but and if it has anything significant but when you get the CAT scan they can further look at it at that time to see if you require further evaluation. Discharge Orders/Prescriptions Prescriptions: New guaifenesin [Mucus Relief ER] 1,200 mg Tablet Extended Release 12hr 1,200 mg PO BID Qty: 10 0RF oseltamivir 30 mg Capsule 30 mg PO BID Qty: 6 0RF levofloxacin 750 mg tablet 750 mg PO DAILY Qty: 4 0RF prednisone 20 mg tablet 40 mg PO DAILY Qty: 10 0RF Continued losartan 50 mg tablet 100 mg PO DAILY atorvastatin 40 mg tablet 40 mg PO QHS Patient Comments: TAKE 1 TABLET BY MOUTH AT BEDTIME metformin 500 mg tablet 1,000 mg PO BID metoprolol succinate 100 mg tablet extended release 24 hr 100 mg PO DAILY glimepiride 2 mg tablet 2 mg PO DAILY warfarin 2 mg Tablet 6 mg PO QMWF [facility]in 2 mg [facility] Referrals / Follow Up: Neymar De Leon MD [Primary Care Provider] - Within 2 Weeks Care Physician,No Primary [Non-Staff] - Disposition Disposition (needs filled in before D/C Order can be placed): Home, Self Care Charges/Coding Visit Charges Inpatient E&M: 01460 Disch Hosp >30min
[2024-09-22 12:59] LABS: International Normalized Ratio 2.3; Prothrombin Time (Protime)PT. 25.7 SECONDS (11.7-14.9)
[2024-09-22 13:01] VITALS: O2SAT 92; O2SAT 97
--- NOTE | 2024-09-22 13:08 | CASEMGMT ---
Pt did not qualify for home oxygen. RN CM into pt room, pt sitting up in chair on RA. Pt denies any homegoing needs. States he is set up very well at home. Denies need for any therapy post dc. Updated hospitalist that pt did not qualify for O2.
[2024-09-22 14:40] VITALS: BP 121/87; PULSE 92; RESP 18; TEMP 37.1; O2SAT 97
--- NOTE | 2024-09-22 15:16 | PHA.DC.MR.R ---
Pharmacy [place] Med Reconciliation Pharmacy Service has performed discharge medication reconciliation for this patient. The patient's discharge medication list was reviewed for discrepancies and discrepancies were resolved. Medications at Discharge Home Medications atorvastatin 40 mg tablet 40 mg PO QHS CHOLESTEROL 05/20/22 glimepiride 2 mg tablet 2 mg PO DAILY DIABETES 05/20/22 losartan 50 mg tablet 100 mg PO DAILY BLOOD PRESSURE 05/20/22 metformin 500 mg tablet 1,000 mg PO BID DIABETES 05/20/22 metoprolol succinate 100 mg tablet,extended release 24 hr 100 mg PO DAILY BLOOD PRESSURE AND HEART RATE 05/20/22 warfarin 2 mg tablet 4 mg PO SUTUTHSA 05/20/22 warfarin 2 mg tablet 6 mg PO QMWF 05/20/22 guaifenesin 1,200 mg tablet, extended release 12 hr (Mucus Relief ER) 1,200 mg PO BID #10 tabs 09/22/24 levofloxacin 750 mg tablet 750 mg PO DAILY #4 tabs 09/22/24 oseltamivir 30 mg capsule 30 mg PO BID #6 caps 09/22/24 prednisone 20 mg tablet 40 mg (2 x 20 mg) PO DAILY #10 tabs 09/22/24
== END 2024-09-22 15:25 | disposition home or self-care (01) | DRG 871 ==
LOC: ED 19:18 → ICU 22:16 → MS3 09-21 17:59
PROVIDERS: Admitting Provider Internal Medicine; Emergency Provider Surgery; PCP Internal Medicine
DX: A41.9 Sepsis, unspecified organism (principal); J96.01 Acute respiratory failure with hypoxia; G93.41 Metabolic encephalopathy; J10.08 Influenza due to other identified influenza virus with other specified pneumonia; J44.1 Chronic obstructive pulmonary disease with (acute) exacerbation; J10.81 Influenza due to other identified influenza virus with encephalopathy; E86.0 Dehydration; E11.9 Type 2 diabetes mellitus without complications; I10 Essential (primary) hypertension; I48.91 Unspecified atrial fibrillation; R65.20 Severe sepsis without septic shock; E78.5 Hyperlipidemia, unspecified; M19.90 Unspecified osteoarthritis, unspecified site; J10.1 Influenza due to other identified influenza virus with other respiratory manifestations; E87.8 Other disorders of electrolyte and fluid balance, not elsewhere classified; Z79.52 Long term (current) use of systemic steroids; Z87.891 Personal history of nicotine dependence; Z68.29 Body mass index [BMI] 29.0-29.9, adult; Z79.84 Long term (current) use of oral hypoglycemic drugs; E66.3 Overweight; Z79.01 Long term (current) use of anticoagulants; B95.3 Streptococcus pneumoniae as the cause of diseases classified elsewhere; M89.8X9 Other specified disorders of bone, unspecified site; Z79.899 Other long term (current) drug therapy
CPT/HCPCS: 36415; 36600; 71045; 71250; 71260; 74177; 80048; 80053; 80061; 80307; 81001; 82077; 82607; 82746; 82803; 82962; 83036; 83605; 83735; 83880; 84100; 84153; 84443; 84484; 85025; 85610; 85730; 87040; 87086; 87449; 87631; 93005; 94640; 94660; 94762; 97116; 97162; 97165; 97535; 97802; 99252; 99285; Q9967; A4216; G0103; G0463; J0696

== ENCOUNTER 2025-04-19 08:13 | Inpatient (IN) | payer MEDICARE, SELFPAY ==
[2025-04-19 08:20] VITALS: BP 125/80; PULSE 94; RESP 18; TEMP 36.5; O2SAT 98; BMI 31.8
--- NOTE | 2025-04-19 08:23 | RAD_ITS ---
PROCEDURE: HIP, UNI W/ PELVIS 2-3 VIEWS 04/19/2025 REASON FOR EXAM: INJURY/PAIN TECHNIQUE: Procedure Code: RADHP Modality: DX Procedure: HIP, UNI W/ PELVIS 2-3 VIEWS Laterality: Right hip. COMPARISON: None FINDINGS: The patient is status post right total hip replacement. There is a fracture through the cervical component of the femoral prosthesis with cephalic migration of the distal fracture fragment. 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 Degenerative changes of the lower lumbar spine. RAD/HIP, UNI W/ Pelvis 2-3 Views IMPRESSION: Transverse cervical fracture of the prosthetic component of the right total hip with cephalic migration of the distal fracture fragment. [facility]
--- NOTE | 2025-04-19 08:43 | EX.ED.DYSGE1 ---
HPI History of Present Illness Chief Complaint: Lower Extremity Injury Detail of Chief Complaint: Complains of right hip pain which he points to the greater trochanteric reg Informant: patient Onset/Context/Timing Onset: Hours Context: Sudden Onset Timing: Continuous Quality: Pain Location: Right hip region Current Severity: Mild Maximum Severity: Moderate Worsened by: Movement Relieved by: Nothing Associated Symptoms Associated Symptoms: Unable to bear weight Narrative Narrative: Patient is a 80-year-old male. He has history of right total hip arthroplasty. He states he was standing pivoted and felt a pop and experienced severe pain which he locates to the greater trochanteric region. He arrived by ambulance. He was unable to bear weight afterwards. He denies paresthesia, anesthesia or motor weakness. He has history of type 2 diabetes, hypercholesterolemia, hypertension and is on anticoagulant. Prior similar symptoms: No Recent Illness/Hospitalization: No PFSH [facility] Medical History Overweight (BMI 25.0-29.9) Kidney stones Diabetes Atrial fibrillation Hypertension Home Medications ?Medication ?Instructions ?Recorded ?Last Taken ?Type atorvastatin 40 mg tablet 40 mg PO QHS CHOLESTEROL 05/20/22 Unknown History glimepiride 2 mg tablet 2 mg PO DAILY DIABETES 05/20/22 Unknown History losartan 50 mg tablet 100 mg PO DAILY BLOOD PRESSURE 05/20/22 Unknown History metformin 500 mg tablet 1,000 mg PO BID DIABETES 05/20/22 Unknown History metoprolol succinate 100 mg 100 mg PO DAILY BLOOD PRESSURE AND 05/20/22 Unknown History tablet,extended release 24 hr HEART RATE warfarin 2 mg tablet 4 mg PO SUTUTHSA 05/20/22 Unknown History warfarin 2 mg tablet 6 mg PO QMWF 05/20/22 Unknown History guaifenesin 1,200 mg tablet, 1,200 mg PO BID #10 tabs 09/22/24 Unknown Rx extended release 12 hr (Mucus Relief ER) levofloxacin 750 mg tablet 750 mg PO DAILY #4 tabs 09/22/24 Unknown Rx oseltamivir 30 mg capsule 30 mg PO BID #6 caps 09/22/24 Unknown Rx prednisone 20 mg tablet 40 mg (2 x 20 mg) PO DAILY #10 tabs 09/22/24 Unknown Rx Allergy/AdvReac Type Severity Reaction Status Date / Time No Known Allergies Allergy Verified 09/20/24 17:36 Surgical History History of hip replacement History of knee replacement Social History Smoking Status: Former smoker ROS ROS ED Constitutional Constitutional ED: Denies chills, fever(s) or subjective Cardiovascular Cardiovascular: Denies chest pain or palpitations Respiratory/Chest Respiratory/Chest: Denies cough or dyspnea Gastrointestinal Gastrointestinal: Denies nausea or vomiting Musculoskeletal Musculoskeletal: Reports other Details: Right hip pain EXAM Physical Exam Const Vital Signs: 04/19/25 08:20 Temperature 97.7 F L Temperature Source Oral Pulse Rate 94 Respiratory Rate 18 Blood Pressure 125/80 H Blood Pressure Mean 95 Pulse Ox 98 Positive well nourished and well developed Constitutional Narrative: Patient appears slightly uncomfortable. The right lower extremity is shortened compared to the left. General Appearance ED: well developed; Negative for pallor HEENT Reports moist mucous membranes HEENT Narrative: HEENT is grossly unremarkable with no evidence of trauma Eyes PERRL and EOMs intact bilaterally General Eye ED: Negative for pale conjunctiva or scleral icterus Resp normal respiratory effort and clear to auscultation bilaterally Cardio regular rate, regular rhythm, S1 normal heart sound, S2 normal heart sound and no murmurs GI normal to inspection, nondistended, normoactive bowel sounds, non-tender and non-distended Extremity Extremity Narrative: There is shortening of the right leg. He is unable to lift his leg up off the bed. He has no pain to palpation in the inguinal area. There is pain ovation over the greater trochanteric region. There is no evidence of bruising or trauma to the hip area. There is no pain ovation over the pubic symphysis, right ischial tuberosity or right ilium. Neuro oriented x3 and CN's II-XII intact bilaterally Sensorium / Orientation: alert Psych mental status grossly normal Skin no rashes or lesions noted, no wounds and No skin turgor normal General Skin Exam: Negative for jaundice or pallor MDM MDM MDM Narrative Medical decision making narrative: Patient last ate at 6 AM. He was made NPO. IV was established. He was treated with pain medicine. X-ray was obtained to determine if patient has a dislocated prosthesis versus a periprosthetic fracture. Lab Data Labs: Laboratory Results - last 24 hr 04/19/25 09:50 WBC 7.5 RBC 3.89 L Hgb 12.1 L Hct 36.9 L MCV 94.9 H MCH 31.1 MCHC 32.8 RDW Std Deviation 47.1 H RDW Coeff of Risa 13.6 Plt Count 241 MPV 10.4 Immature Gran % (Auto) 0.500 Neut % (Auto) 73.8 H Lymph % (Auto) 15.7 L [place] % (Auto) 8.1 Eos % (Auto) 1.2 Baso % (Auto) 0.7 Absolute Neuts (auto) 5.5 Absolute Lymphs (auto) 1.18 Nucleated RBC % 0 PT 29.2 H INR 2.7 Sodium 140 Potassium 4.3 Chloride 103 Carbon Dioxide 29.6 Anion Gap 7 BUN 16 Creatinine 0.87 Estim Creat Clear Calc 86.79 Est GFR (MDRD) Non-Af 88 BUN/Creatinine Ratio 18.3 Glucose 221 H Calcium 9.2 Radiography Chest X-Ray - ED: Read by ED Physician (Three-view x-ray reveals a fracture of the femoral neck of the prosthetic component. This would explain the shortening of his leg. No other abnormalities noted.) Diagnostic Testing: Clinical Impression(s) from Imaging Studies Hip/Pelvis X-Ray 04/19/25 08:23 IMPRESSION: Transverse cervical fracture of the prosthetic component of the right total hip with cephalic migration of the distal fracture fragment. Reading Location: [facility]- Chest X-Ray 04/19/25 09:39 IMPRESSION: There is cardiomegaly without overt CHF. Reading Location: [facility] EKG Initial EKG: Attestation: I personally reviewed and interpreted this EKG as follows: Interpretation: Atrial Fibrillation (Rate is 96. There is a right bundle branch block. QRS duration 128 ms. QT duration 180 ms. [place] is normal there is no acute ischemic changes per) Management Discussion w/another healthcare provider: Hospitalist (Case was discussed with hospitalist, Dr. Marcelino Hope. He is aware that Dr. Bradley needs to do the case tomorrow. He did review my note prior to calling) and [employer] Mechanic Helper (Spoke with Dr. Dilan Zurita who is on-call for orthopedics no doc. He informing that he does not do revisions. Will contact other group to see if anyone is available to fix this otherwise patient will require transfer.) Treatment and Re-Evaluation :: Case discussed Dr. [place] presents patient's INR is not significantly out of control will contact hospitalist for admission. 5 mg of vitamin K orally was ordered to start reversal since he will need to be operated on tomorrow by Dr. Bradley. He is on Coumadin for atrial fibrillation. Discharge Plan Dx/Rx/DC Orders Clinical Impression: Prosthetic hip implant failure, Atrial fibrillation, Anticoagulant long-term use, Anemia due to chronic illness, Hyperglycemia due to type 2 diabetes mellitus, History of hypertension Disposition Disposition: Acute Care Hospital [facility]
--- NOTE | 2025-04-19 09:39 | EKG12_ITS ---
Test Reason : Blood Pressure : */* mmHG Vent. Rate : 96 BPM Atrial Rate : * BPM P-R Int : * ms QRS Dur : 128 ms QT Int : 380 ms P-R-T Axes : * -13 16 degrees QTcB Int : 480 ms Atrial fibrillation Right bundle branch block Abnormal ECG Confirmed by Tal Painting ([id number]), newspaper editor WENDY PACHECO ([id number]) on 04/20/2025 9:32:22 AM Referred By: Confirmed By: Tal Painting
--- NOTE | 2025-04-19 09:39 | RAD_ITS ---
PROCEDURE: CHEST 1 VIEW (PORTABLE) 04/19/2025 REASON FOR EXAM: PREOPERATIVE CLEARANCE TECHNIQUE: Frontal view of the chest. COMPARISON: None FINDINGS: There is cardiomegaly without overt CHF. There is no focal infiltrate or consolidation. There is no pneumothorax or effusion. There is no acute bony abnormality. Aortic calcifications are noted. RAD/Chest 1 View (Portable) IMPRESSION: There is cardiomegaly without overt CHF. Reading Location: [facility]
[2025-04-19 10:01] LABS: Hematocrit 36.9 % (40-54); Hemoglobin 12.1 g/dL (13.0-16.5); Immature Granulocytes Count 0.040 X10^3/uL (0.0-0.0); Mean Corp Hgb Conc 32.8 g/dL (32-36); Mean Corpuscular Volume 94.9 fL (80-94); Mean Platelet Vol. 10.4 fl (6.2-12.0); NRBC Flagged by Analyzer 0 % (0-5); Platelet Count 241 K/mm3 (150-450); RBC Distribution Width CV 13.6 % (11.6-14.6); RBC Distribution Width SD 47.1 fl (35.1-43.9); Red Blood Count 3.89 M/mm3 (4.6-6.2); White Blood Count 7.5 K/mm3 (4.4-11.0)
[2025-04-19 10:08] LABS: Prothrombin Time (Protime)PT. 29.2 SECONDS (11.7-14.9)
[2025-04-19 10:27] LABS: Anion Gap 7 (5-15); BUN 16 mg/dL (4-19); BUN/Creat Ratio 18.3 RATIO (10-20); Calcium,Total 9.2 mg/dL (7.6-11.0); Carbon Dioxide 29.6 mmol/L (21.0-32.0); Chloride 103 mmol/L (98-108); Estimated Creatinine Clearance 86.79 ml/min (50-250); Glucose 221 mg/dL (70-99); Potassium 4.3 mmol/L (3.3-5.1)
[2025-04-19 11:35] VITALS: BP 111/68; PULSE 74; RESP 16; TEMP 36.6; O2SAT 99
[2025-04-19 12:15] VITALS: BP 115/78; PULSE 78; RESP 16; O2SAT 98
--- OUTSIDE RECORDS SUMMARY | 2025-04-19 12:41 | XMS RPT_ITS | CCD ---
Author Organization [facility] Care Team Providers Care Alley Cleaner Name Role Phone Linda Andres Unavailable Unavailable Tavallaee, Neymar Princess Unavailable Unavailable Tavallaee, Neymar Unavailable Unavailable TavallaeeNeymar Unavailable Unavailable Tavallaee, Neymar Unavailable Unavailable TavallaeeNeymar Unavailable Unavailable TavallaeeIsaeld Princess Unavailable Unavailable Unavailable Unavailable Unavailable Unavailable Unavailable Neymar Xavier Attending Unavailable TavallaeeNeymar Referring Unavailable TavallaeeNeymar Primary Care Unavailable TavallaeeNeymar Attending Unavailable TavallaeeNeymar Referring Unavailable TavallaeeNeymar Primary Care Unavailable TavallaeeNeymar Attending Unavailable TavallaeeNeymar Referring Unavailable Tavallaee, Neymar Primary Care Unavailable Arunallaee Neymar RUIZ Primary Care Provider Neymar Xavier MD Unavailable Duc, Dr. Neymar Pérez Primary Care Unavailable Tavallaee, Dr. Neymar Pérez Attending Unavailable Tavallaee, Dr. Neymar Pérez Primary Care Unavailable Tavallaee, Dr. Neymar Pérez Attending Unavailable Tavallaee, Dr. Neymar Pérez Primary Care Unavailable Tavallaee, Dr. Neymar Pérez Attending Unavailable Tavallaee, Dr. Neymar Pérez Primary Care Unavailable Tavallaee, Dr. Neymar Pérez Attending Unavailable Tavallaee, Dr. Neymar Pérez Primary Care Unavailable Tavallaee, Dr. Neymar Pérez Attending Unavailable Tavallaee, Dr. Neymar Pérez Primary Care Unavailable Tavallaee, Dr. Neymar Pérez Attending Unavailable Tavallaee, Dr. Neymar Pérez Primary Care Unavailable Tavallaee, Dr. Neymar Pérez Attending Unavailable Tavallaee, Dr. Neymar Pérez Attending Unavailable Tavallaee, Dr. Neymar Pérez Primary Care Unavailable Tavallaee, Dr. Nyemar Pérez Primary Care Unavailable Tavallaee, Dr. Neymar Pérez Attending Unavailable Tavallaee, Dr. Neymar Pérez Primary Care Unavailable Tavallaee, Dr. Neymar Pérez Attending Unavailable Tavallaee, Dr. Neymar Pérez Primary Care Unavailable Tavallaee, Dr. Neymar Pérez Attending Unavailable Tavallaee, Dr. Neymar Pérez Admitting Unavailable Tavallaee, Dr. Neymar Pérez Primary Care Unavailable Tavallaee, Dr. Neymar Pérez Attending Unavailable Tavallaee, Dr. Neymar Pérez Primary Care Unavailable Tavallaee, Dr. Neymar Pérez Attending Unavailable Tavallaee, Dr. Neymar Pérez Primary Care Unavailable Tavallaee, Dr. Neymar Pérez Attending Unavailable TAVALLAEENEYMAR Primary Care Unavailable TAVALLAEENEYMAR Primary Care Unavailable TAVALLAEENEYMAR Primary Care Unavailable TAVALLAEENEYMAR Primary Care Unavailable Dr. Stone Leong DO Emergency Provider Duc RUIZ, Dr. Blackmon Primary Care Provider Dr. Zeferino Estrada DO Admit Provider Unavail able Estrada DO, Dr. Mcgarry Attending Provider Unav ailable Codygauravkailyn-Tomas DO, Dr. Ritter Emergency Provider Duc RUIZ, Dr. Blackmon Primary Care Provider de Reymundo CORONA, Dr. Mcgarry Admit Provider Unavail able de Reymundo CORONA, Dr. Mcgarry Other Provider Unavail able Samia CORONA, Dr. Benson Attending Provider [phone] Samia CORONA, Dr. Benson Other Provider Skyler RUIZ, Dr. Gomez Other Provider Sue RUIZ, Dr. Estrella Other Provider Lennox RUIZ, Dr. Ruelas Other Provider Cristóbal CORONA, Dr. Tucker Other Provider Sanjiv RUIZ, Dr. Zeferino Kirby Other Provider Chris RUIZ, Dr. Castanon Other Provider Andria RUIZ, Dr. Mathew Other Provider Bhavani RUIZ, Dr. Irizarry Other Provider [phone] Aggie RUIZ, Dr. Cabrera Other Provider [phone] Iraj RUIZ, Dr. Cardona Other Provider Dr. Zachary Jones MD Other Provider Cristopher RUIZ, Dr. Desai Other Provider Kendall RUIZ, Dr. Jackson Other Provider Unavailabl hari West MD, Dr. Danielle Other Provider Marisela RUIZ, Dr. Ignacio Other Provider Dr. Darrell Karimi MD Other Provider Rah RUIZ, Dr. Mina Other Provider Gianni CORONA, Dr. Cardenas Other Provider Ludmila RUIZ, Dr. Lopez Other Provider [phone] Shira RUIZ, Dr. Bonilla Other Provider Dr. Jurgen Leblanc DO Other Provider Ethan RUIZ, Dr. Castillo Other Provider Tin RUIZ, Dr. Rolon Other Provider Dr. Garrett Ambrocio DO Attending Provider [phone] Duc RUIZ, Neymar Sánchez Primary Care Provider Neymar Xavier MD Unavailable Tim MACDONALD, Diann Unavailable Marcelino Gracia Attending Unavailable Zeferino Estrada Consulting Unavailable Zeferino Estrada Admitting Unavailable Tavallaee, Neymar Primary Care Unavailable Marcelino Gracia Attending Unavailable Zeferino Estrada Admitting Unavailable Zeferino Estrada Consulting Unavailable Tavallaee, Neymar Primary Care Unavailable Jason Holland Consulting Unavailable Sameer Rogers Consulting Unavailable Suraj High Consulting Unavailable Garrett Ambrocio Consulting Unavailable Zeferino Kincaid Consulting Unavailable Lg Perez Consulting Unavailable Quincy Ayers Consulting Unavailable Edie Beckham Consulting UnavailRick Coon Consulting Unavailable Brendan Galo Consulting Unavailable Zachary Jones Consulting Unavailable Giselle Nicholas Consulting Unavailable Renetta Argueta Consulting Unavailable Lolis West Consulting Unavailable Mateus Antonio Consulting Unavailable Darrell Karimi Consulting Unavailable Leopoldo Monreal Consulting Unavailable Gianni, Ronald Consulting Unavailable Jessica Keys Consulting Unavailable Irene Silva Consulting Unavailable Jurgen Leblanc Consulting Unavailable Jonathan Long Consulting Unavailable Gonzales Castle Consulting Unavailable Marcelino Gracia Consulting Unavailable Zeferino Estrada Attending Unavailable Marcelino Gracia Referring Unavailable Garrett Ambrocio Attending Unavailable TAVALLAEE, NEYMAR M Referring Unavailable TAVALLAEE, NEYMAR M Primary Care Unavailable TAVALLAEE, NEYMAR M Primary Care Unavailable TAVALLAEE, NEYMAR M Referring Unavailable TAVALLAEE, NEYMAR M Primary Care Unavailable TAVALLAEE, NEYMAR M Referring Unavailable TAVALLAEE, NEYMAR M Primary Care Unavailable TAVALLAEE, NEYMAR M Referring Unavailable TAVALLAEE, NEYMAR M Primary Care Unavailable TAVALLAEE, NEYMAR M Referring Unavailable TAVALLAEE, NEYMAR M Primary Care Unavailable TAVALLAEE, NEYMAR M Referring Unavailable TAVALLAEE, NEYMAR M Primary Care Unavailable TAVALLAEE, NEYMAR M Referring Unavailable TAVALLAEE, NEYMAR M Primary Care Unavailable TAVALLAEE, NEYMAR M Referring Unavailable TAVALLAEE, NEYMAR M Primary Care Unavailable TAVALLAEE, NEYMAR M Referring Unavailable TAVALLAEE, NEYMAR M Primary Care Unavailable TAVALLAEE, NEYMAR M Referring Unavailable TAVALLAEE, NEYMAR M Primary Care Unavailable TAVALLAEE, NEYMAR M Referring Unavailable TAVALLAEE, NEYMAR M Primary Care Unavailable TAVALLAEE, NEYMAR M Referring Unavailable TAVALLAEE, NEYMAR M Primary Care Unavailable TAVALLAEE, NEYMAR M Referring Unavailable TAVALLAEE, NEYMAR M Primary Care Unavailable TAVALLAEE, NEYMAR M Referring Unavailable TAVALLAEE, NEYMAR M Primary Care Unavailable TAVALLAEE, NEYMAR M Referring Unavailable TAVALLAEE, NEYMAR M Primary Care Unavailable TAVALLAEE, NEYMAR M Referring Unavailable TAVALLAEE, NEYMAR M Primary Care Unavailable TAVALLAEE, NEYMAR M Referring Unavailable TAVALLAEE, NEYMAR M Primary Care Unavailable TAVALLAEE, NEYMAR M Referring Unavailable TAVALLAEE, NEYMAR M Primary Care Unavailable TAVALLAEE, NEYMAR M Referring Unavailable TAVALLAEE, NEYMAR M Primary Care Unavailable TAVALLAEE, NYEMAR M Attending Unavailable TAVALLAEE, NEYMAR M Primary Care Unavailable TAVALLAEE, NEYMAR M Attending Unavailable TAVALLAEE, NEYMAR M Primary Care Unavailable TAVALLAEE, NEYMAR M Attending Unavailable TAVALLAEE, NEYMAR M Primary Care Unavailable TAVALLAEE, NEYMAR M Attending Unavailable TAVALLAEE, NEYMAR M Primary Care Unavailable NEYMAR XAVIER Attending Unavailable NEYMAR XAVIER Primary Care Unavailable NEYMAR XAVIER Attending Unavailable NEYMAR XAVIER Primary Care Unavailable NEYMAR XAVIER Attending Unavailable NEYMAR XAVIER Primary Care Unavailable Allergies Allergy Classification Reported Allergen(s) Allergy Type Date of Onset Reaction(s) Facility adalimumab (7 sources) adalimumab; Translations: [Humira] Drug Allergy Rash [facility] Work Phone: (20 sources) adalimumab; Translations: [Humira] Drug Allergy Rash [facility] Work Phone: (20 sources) adalimumab; Translations: [ADALIMUMAB] Drug Allergy 07-30-2022 Rash [facility] Medications Current Medications Medication Drug Class(es) Dates Sig (Normalized) Sig (Original) amLODIPine 5 mg oral tablet (2 sources) Dihydropyridine Calcium Channel Josefina Start: 5 take 1 tablet by mouth once daily amLODIPine (Norvasc) 5 mg tablet Indications: Benign essential hypertension Take 1 tablet (5 mg) by mouth once daily. 90 tablet 3 03/16/2025 Active amoxicillin 875 mg / clavulanate 125 mg oral tablet (1 source) Penicillin-class Antibacterial Start: 3 End: 3 take 1 tablet by mouth twice daily amoxicillin-pot clavulanate (Augmentin) 875-125 mg tablet Indications: Cellulitis, unspecified cellulitis site Take 1 tablet (875 mg) by mouth 2 times a day for 7 days. 14 tablet 0 04/07/2023 04/14/2023 Active aspirin 81 mg delayed release oral tablet (20 sources) Platelet Aggregation Inhibitor, Nonsteroidal Anti-inflammatory Drug take 1 tablet by mouth once daily aspirin 81 mg EC tablet Take 1 tablet (81 mg) by mouth once daily. Active atorvastatin 40 mg oral tablet (20 sources) HMG-CoA Reductase Inhibitor Start: 5 atorvastatin (Lipitor) 40 mg tablet Indications: Hypercholesterolemia TAKE 1 TABLET AT BEDTIME 90 tablet 2 03/06/2025 Active Start: 12-20-2024 End: 08-18-2025 take 1 tablet by mouth once daily at bedtime atorvastatin (Lipitor) 40 mg tablet Indications: Hypercholesterolemia Take 1 tablet (40 mg) by mouth once daily at bedtime. 90 tablet 3 02/13/2025 Active Start: 05-14-2022 take 1 tablet by serina th once daily at bedtime atorvastatin (Lipitor) 40 mg tablet Indications: Hypercholesterolemia Take 1 tablet (40 mg) by mouth once daily at bedtime. 90 tablet 3 02/19/2024 Active 1 ml dexamethasone phosphate 4 mg/ml injection (1 source) Corticosteroid Start: 04-07-2023 dexAMETHasone (Decadron) injection 4 mg Start: 04-07-2023 dexAMETHasone (Decadron) injection 4 mg erythromycin 0.005 mg/mg ophthalmic ointment (13 sources) Macrolide, Macrolide Antimicrobial Start: 02-24-2024 erythromycin (Romycin) 5 mg/gram (0.5 %) ophthalmic ointment Apply 7 cm to both eyes 1 time. 02/24/2024 Active glimepiride 2 mg oral tablet (20 sources) Sulfonylurea Start: 01-19-2025 take 1 tablet by mouth once daily glimepiride (Amaryl) 2 mg tablet Indications: Type 2 diabetes mellitus without complication, without long-term current use of insulin (Multi) Take 1 tablet (2 mg) by mouth once daily. 90 tablet 3 01/19/2025 Active Start: 02-19-2024 take 1 tablet by serina th once daily glimepiride (Amaryl) 2 mg tablet Indications: Type 2 diabetes mellitus without complication, without long-term current use of insulin Take 1 tablet (2 mg) by mouth once daily. 90 tablet 3 02/19/2024 Active Start: 01-18-2024 take 1 tablet by serina th once daily glimepiride (Amaryl) 2 mg tablet Indications: Type 2 diabetes mellitus without complication, without long-term current use of insulin (Multi) Take 1 tablet (2 mg) by mouth once daily. 90 tablet 3 01/18/2024 Active Start: 05-20-2022 End: 01-18-2024 take 1 tablet by mouth once daily glimepiride (Amaryl) 2 mg tablet Indications: Type 2 diabetes mellitus without complication, without long-term current use of insulin (Multi) Take 1 tablet (2 mg) by mouth once daily. 90 tablet 3 06/27/2023 01/18/2024 Discontinued (Reorder) 12 hr guaiFENesin 1200 mg extended release oral tablet (11 sources) Start: 09-22-2024 take 1 tablet by mouth twice daily, then take 1 tablet by mouth every twelve hours Guaifenesin (Mucus Relief Er) 1,200 mg Tablet Extended Release 12hr Active 1200 mg PO TWICE A DAY September 22, 2024 12:00am take 2 tablets by mouth twice da shireen guaiFENesin (Mucinex) 600 mg 12 hr tablet Take 2 tablets (1,200 mg) by mouth 2 times a day. Do not crush, chew, or split. Active levoFLOXacin 750 mg oral tablet (4 sources) Quinolone Antimicrobial Start: 09-22-2024 take 1 tablet by mouth once daily Levofloxacin 750 mg tablet Active 750 mg PO DAILY September 22, 2024 12:00am losartan potassium 50 mg oral tablet (20 sources) Angiotensin 2 Receptor Josefina Start: 06-27-2024 take 1 tablet by mouth twice daily losartan (Cozaar) 50 mg tablet Indications: Benign essential hypertension TAKE ONE TABLET BY MOUTH TWICE A DAY 180 tablet 3 06/27/2024 Active Start: 08-19-2023 take 1 tablet by serina th twice daily losartan (Cozaar) 50 mg tablet Indications: Benign essential hypertension Take 1 tablet (50 mg) by mouth 2 times a day. 180 tablet 3 08/19/2023 Active Start: 04-14-2023 take 1 tablet by serina th twice daily losartan (Cozaar) 50 mg tablet Indications: Benign essential hypertension Take 1 tablet (50 mg) by mouth 2 times a day. 180 tablet 3 04/14/2023 Active Start: 05-20-2022 take 2 tablets by mo uth once daily Losartan 50 mg tablet Active 100 mg PO DAILY May 20, 2022 1:00am take 1 tablet by serina th in the morning losartan (Cozaar) 50 mg tablet Take 1 tablet (50 mg) by mouth in the morning and 1 tablet (50 mg) before bedtime. 0 Active take 1 tablet by serina th once daily Losartan Potassium 50 MG Oral Tablet TAKE 1 TABLET DAILY. Quantity: 90 Refills: 3 Ordered: 18-Jul-2021 Neymar Xavier MD Active magnesium oxide 400 mg oral tablet (20 sources) Start: 04-14-2023 End: 05-18-2023 take 1 tablet by mouth once daily magnesium oxide (Mag-Ox) 400 mg (241.3 mg magnesium) tablet Indications: Muscle cramp Take 1 tablet (400 mg) by mouth once daily. 90 tablet 3 05/18/2023 Active Start: 05-14-2022 take 1 tablet by serina th once daily magnesium oxide (Mag-Ox) 400 mg (241.3 mg magnesium) tablet Take 1 tablet (400 mg) by mouth once daily. 0 05/14/2022 Active Start: 05-14-2022 take 1 tablet by serina th once daily Magnesium Oxide 400 (240 Mg) MG Oral Tablet TAKE 1 TABLET BY MOUTH EVERY DAY Quantity: 30 Refills: 11 Ordered: 14-May-2022 Neymar Xavier MD Start : 14-May-2022 Active metFORMIN hydrochloride 500 mg oral tablet (20 sources) Biguanide Start: 12-20-2024 take 2 tablets by mouth twice daily metFORMIN (Glucophage) 500 mg tablet Indications: Type 2 diabetes mellitus with hyperglycemia, without long-term current use of insulin (Multi) Take 2 tablets (1,000 mg) by mouth 2 times a day. 360 tablet 3 12/20/2024 Active Start: 05-20-2022 End: 01-18-2024 take 2 tablets by mouth twice daily metFORMIN (Glucophage) 500 mg tablet Indications: Type 2 diabetes mellitus with hyperglycemia, without long-term current use of insulin Take 2 tablets (1,000 mg) by mouth 2 times a day. 360 tablet 3 01/18/2024 Active 24 hr metoprolol succinate 100 mg extended release oral tablet (20 sources) beta-Adrenergic Josefina Start: 06-30-2024 End: 09-27-2024 take 1 tablet by mouth twice daily metoprolol succinate XL (Toprol-XL) 100 mg 24 hr tablet Indications: Benign essential hypertension Take 1 tablet (100 mg) by mouth 2 times a day. 180 tablet 3 09/27/2024 Active Start: 07-07-2023 take 1 tablet by serina th twice daily metoprolol succinate XL (Toprol-XL) 100 mg 24 hr tablet Indications: Type 2 diabetes mellitus with hyperglycemia, without long-term current use of insulin (Multi) Take 1 tablet (100 mg) by mouth 2 times a day. 180 tablet 3 07/07/2023 Active Start: 05-20-2022 take 1 tablet by serina th once daily Metoprolol Succinate 100 mg tablet extended release 24 hr Active 100 mg PO DAILY May 20, 2022 1:00am take 1 tablet by serina th twice daily metoprolol succinate XL (Toprol-XL) 100 mg 24 hr tablet Take 1 tablet (100 mg) by mouth 2 times a day. 0 Active take 1 tablet by serina th every twenty-four hours in the morning metoprolol succinate XL (Toprol-XL) 100 mg 24 hr tablet Take 1 tablet (100 mg) by mouth in the morning and 1 tablet (100 mg) before bedtime. 0 Active take 1.5 tablets by mouth once daily Metoprolol Succinate ER 100 MG Oral Tablet Extended Release 24 Hour TAKE 1.5 TABLET Daily Quantity: 135 Refills: 3 Ordered: 18-Jul-2021 Duc RUIZ, Neymar Active multivit-min/ferrous fumarat e (MULTI VITAMIN ORAL) (20 sources) take 1 tablet by mouth once in the morning multivit-min/ferrous fumarate (MULTI VITAMIN ORAL) Take 1 tablet by mouth in the morning. Active take 1 tablet by serina th once in the morning multivit-min/ferrous fumarate (MULTI VIT MORENO ORAL) Take 1 tablet by mouth in the morning. 0 Active ofloxacin 3 mg/ml ophthalmic solution (2 sources) Quinolone Antimicrobial Start: 10-03-2024 take 1 drop(s) into the eye(s) four times daily ofloxacin (Ocuflox) 0.3 % ophthalmic solution instill 1 drop into left eye 4 times daily 10/03/2024 Active oseltamivir 30 mg oral capsule (10 sources) Neuraminidase Inhibitor Start: 09-22-2024 End: 03-16-2025 take 1 capsule by mouth twice daily Oseltamivir 30 mg Capsule Active 30 mg PO TWICE A DAY September 22, 2024 12:00am prednisoLONE acetate 10 mg/ml ophthalmic suspension (2 sources) Corticosteroid Start: 10-03-2024 take 1 drop(s) into the eye(s) four times daily prednisoLONE acetate (Pred-Forte) 1 % ophthalmic suspension instill 1 drop into left eye 4 times daily 10/03/2024 Active predniSONE 20 mg oral tablet (12 sources) Start: 09-22-2024 take 2 tablets by mouth once daily Prednisone 20 mg tablet Active 40 mg PO DAILY September 22, 2024 12:00am Start: 04-07-2023 End: 04-12-2023 take 1 tablet by mouth three times daily predniSONE (Deltasone) 10 mg tablet Indications: Cellulitis, unspecified cellulitis site , Tenosynovitis of hand , Localized swelling on left hand Take 1 tablet (10 mg) by mouth 3 times a day for 5 days. 15 tablet 0 04/07/2023 04/12/2023 Active valACYclovir 1000 mg oral tablet (2 sources) Herpesvirus Nucleoside Analog DNA Polymerase Inhibitor, Herpes Simplex Virus Nucleoside Analog DNA Polymerase Inhibitor, Herpes Zoster Virus Nucleoside Analog DNA Polymerase Inhibitor Start: 10-03-2024 take 1 tablet by mouth three times daily valACYclovir (Valtrex) 1 gram tablet Take 1 tablet (1,000 mg) by mouth 3 times a day. 10/03/2024 Active warfarin sodium 2 mg oral tablet (20 sources) Vitamin K Antagonist Start: 12-20-2024 take 1 tablet by mouth once daily at bedtime warfarin (Coumadin) 2 mg tablet Indications: Chronic atrial fibrillation, unspecified (Multi) Take 1 tablet (2 mg) by mouth once daily at bedtime. As directed by coumadin clinic 90 tablet 3 12/20/2024 Active Start: 02-10-2024 take 1 tablet by serina th once daily at bedtime warfarin (Coumadin) 2 mg tablet Indications: Chronic atrial fibrillation, unspecified (Multi) Take 1 tablet (2 mg) by mouth once daily at bedtime. As directed by coumadin clinic 90 tablet 3 02/10/2024 Active Start: 01-18-2024 warfarin (Coum jose j) 2 mg tablet Indications: Chronic atrial fibrillation, unspecified (Multi) Take 1 tablet (2 mg) by mouth see administration instructions. 90 tablet 3 01/18/2024 Active Start: 05-20-2022 End: 01-18-2024 take 2 tablets by mouth once Warfarin 2 mg Tablet Acti ve 4 mg PO every Thursday, , , Sat May 20, 2022 1:00am Start: 05-20-2022 take 3 tablets by mouth once W arfarin 2 mg Tablet Active 6 mg PO every Thursday, Thursday, and Friday May 20, 2022 1:00am Warfarin Sodium 2 MG Oral Tablet Take as directed Quantity: 360 Refills: 3 Ordered: 14-May-2022 Neymar Xavier MD Active Warfarin Sodium 2 MG Oral Tablet Take as directed Quantity: 360 Refills: 3 Ordered: 18-Jul-2021 Neymar Xavier MD Active Warfarin Sodium 2 MG Oral Tablet Take as directed Quantity: 360 Refills: 3 Ordered: 08-Jan-2021 Neymar Xavier MD Active Warfarin Sodium 2 MG Oral Tablet 3 TABS [id number]; 4 TABS THU Quantity: 360 Refills: 3 Ordered: 30-Jul-2020 Neymar Xavier MD Active Completed/Discontinued Medications Medication Drug Class(es) Dates Sig (Normalized) Sig (Original) flu vacc [id number], 65yr up,-PF (Fluzone High-Dose Quad) syringe (3 sources) Start: 03-17-2023 End: 05-18-2023 flu vacc [id number], 65yr up,-PF (Fluzone High-Dose Quad) syringe INTRAMUSCULARLY .7 mL 0 03/17/2023 05/18/2023 Discontinued (Therapy completed) Start: 03-17-2023 End: 03-16-2024 flu vacc [id number], 65yr up, -PF (Fluzone High-Dose Quad) syringe INTRAMUSCULARLY .7 mL 0 03/17/2023 03/16/2024 Active gabapentin 400 mg oral capsule (11 sources) Anti-epileptic Agent take 1 capsule by mouth three times daily Gabapentin 400 MG Oral Capsule TAKE 1 CAPSULE 3 TIMES DAILY. Quantity: 90 Refills: 2 Neymar Xavier MD Active iohexol (OMNIPaque) 350 mg iodine/mL solution 70 mL (1 source) Start: 5 End: 5 70 mL, intravenous, Once in imaging, Starting on Emelina 10/13/24 at 1501, For 1 dose Multi Vitamin Oral Tablet (11 sources) take 1 tablet by mouth once daily Multi Vitamin Oral Tablet TAKE 1 TABLET DAILY. Refills: 0 DO Active take 1 tablet by mouth once yoly y Multi Vitamin Oral Tablet TAKE 1 TABLET DAILY. Refills: 0 Active Multi Vitamin Oral Tablet (20 sources) take 1 tablet by mouth once daily Multi Vitamin Oral Tablet TAKE 1 TABLET DAILY. Quantity: 0 Refills: 0 Ordered: 27-Apr-2019 DO Active simvastatin 20 mg oral tablet (20 sources) HMG-CoA Reductase Inhibitor take 1 tablet by mouth once daily in the evening Simvastatin 20 MG Oral Tablet TAKE 1 TABLET DAILY IN THE EVENING. Quantity: 90 Refills: 3 Ordered: 07-Jul-2021 Neymar Xavier MD Active Problems Active Problems Problem Classification Problem Date Documented Date Episodic/Chronic Abdominal pain (2 sources) Right flank pain; Translations: [Unspecified abdominal pain] 05-28-2022 Episodic Cardiac dysrhythmias (20 sources) Chronic atrial fibrillation; Translations: [Atrial fibrillation] Onset: 07-30-2022 01-12-2023 Chronic Chronic obstructive pulmonary disease and bronchiectasis (5 sources) Acute exacerbation of chronic obstructive airways disease; Translations: [Chronic obstructive pulmonary disease with (acute) exacerbation] Onset: 09-28-2024 09-20-2024 Chronic Deficiency and other anemia (1 source) Anemia; Translations: [Anemia, unspecified] 05-18-2023 Episodic Diabetes mellitus with complications (20 sources) Type 2 diabetes mellitus with diabetic cataract; Translations: [Type 2 diabetes mellitus with hyperglycemia] Onset: 04-07-2023 Chronic Diabetes mellitus without complication (20 sources) Type 2 diabetes mellitus; Translations: [Diabetes mellitus without mention of complication, type II or unspecified type, not stated as uncontrolled] Onset: 07-30-2022 01-12-2023 Chronic Disorders of lipid metabolism (20 sources) Hypercholesterolemia; Translations: [Hypertriglyceridemia ] Onset: 07-30-2022 01-12-2023 Chronic Diverticulosis and diverticulitis (20 sources) Diverticular disease; Translations: [Diverticulosis of colon (without mention of hemorrhage)] Onset: 07-30-2022 07-30-2022 Chronic Essential hypertension (20 sources) Benign essential hypertension; Translations: [Benign essential hypertension] Onset: 07-30-2022 01-12-2023 Chronic Fluid and electrolyte disorders (3 sources) Dehydration; Translations: [Dehydration] Onset: 09-28-2024 09-20-2024 Episodic Influenza (5 sources) Influenza due to Influenza A virus; Translations: [Influenza due to other identified influenza virus with other respiratory manifestations] Onset: 09-28-2024 09-20-2024 Episodic Osteoarthritis (20 sources) Degenerative joint disease involving multiple joints; Translations: [Osteoarthrosis, generalized, site unspecified] Onset: 07-30-2022 07-30-2022 Chronic Other aftercare (20 sources) Patient encounter status; Translations: [Long-term (current) use of other medications] Onset: 06-27-2019 09-16-2023 Episodic Comment on above: 1.78; Other aftercare (2 sources) Long-term current use of anticoagulant; Translations: [snf (current) use of anticoagulants] 05-28-2022 Episodic Other and unspecified benign neoplasm (9 sources) Polyp of colon; Translations: [Benign neoplasm of colon] Episodic Other bone disease and musculoskeletal deformities (3 sources) Other specified disorders of bone, unspecified site; Translations: [Lytic lesion of bone on x-ray] Onset: 09-22-2024 09-21-2024 Episodic Other connective tissue disease (1 source) Tenosynovitis of hand; Translations: [Synovitis and tenosynovitis, unspecified] 04-07-2023 Episodic Other connective tissue disease (7 sources) Pain of left thigh; Translations: [Pain in left thigh] 02-06-2025 Episodic Other connective tissue disease (4 sources) Pain in left thigh; Translations: [Pain in left thigh] Onset: 02-06-2025 Episodic Other diseases of veins and lymphatics (1 source) Lymphedema; Translations: [Lymphedema, not elsewhere classified] 04-08-2023 Chronic Other inflammatory condition of skin (20 sources) Psoriatic arthritis; Translations: [Psoriatic arthropathy] Onset: 07-30-2022 01-12-2023 Chronic Other inflammatory condition of skin (4 sources) Arthropathic psoriasis, unspecified; 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, unspecified (Multi)] Onset: 07-30-2022 Chronic Other injuries and conditions due to external causes (2 sources) Injury of musculoskeletal system; Translations: [Other injury of unspecified body region, initial encounter] 05-28-2022 Episodic Other lower respiratory disease (5 sources) Imaging of lung abnormal ; Translations: [Other nonspecific abnormal finding of lung field] 09-27-2024 Episodic Other lower respiratory disease (1 source) Shortness of breath; Translations: [Shortness of breath] Onset: 10-24-2024 Episodic Other nervous system disorders (4 sources) Metabolic encephalopathy; Translations: [Metabolic encephalopathy] 09-20-2024 Chronic Other nervous system disorders (1 source) Metabolic encephalopathy; Translations: [Metabolic encephalopathy] Onset: 09-28-2024 Chronic Other nutritional; endocrine; and metabolic disorders (4 sources) Body mass index 25-29 - overweight; Translations: [Overweight] 09-20-2024 Episodic Other nutritional; endocrine; and metabolic disorders (2 sources) H/O: diabetes mellitus; Translations: [Personal history of other endocrine, nutritional and metabolic disease] 05-28-2022 Episodic Other nutritional; endocrine; and metabolic disorders (1 source) Overweight; Translations: [Overweight] Onset: 09-28-2024 Episodic Other skin disorders (2 sources) Localized swelling of left hand; Translations: [Localized swelling, mass and lump, left upper limb] 04-07-2023 Episodic Residual codes; unclassified (14 sources) History finding; Translations: [Other specified conditions influencing health status] Episodic Respiratory failure; insufficiency; arrest (adult) (5 sources) Acute respiratory failure; Translations: [Acute respiratory failure with hypoxia] Onset: 09-28-2024 09-20-2024 Episodic Septicemia (except in labor) (6 sources) Sepsis; Translations: [Sepsis, unspecified organism] Onset: 09-28-2024 09-20-2024 Episodic Skin and subcutaneous tissue infections (1 source) Cellulitis; Translations: [Cellulitis, unspecified] 04-07-2023 Episodic Unclassified (20 sources) Patient encounter status; Translations: [Medication management] 08-01-2024 Unclassified (8 sources) Chronic atrial fibrillation, unspecified; Translations: [Chronic atrial fibrillation, unspecified (Multi)] Onset: 07-30-2022 Past or Other Problems Problem Classification Problem Date Documented Da te Episodic/Chronic Deficiency and other anemia (2 sources) Anemia, unspecified; Translations: [Anemia, unspecified] Onset: 09-09-2023 Episodic Other and unspecified benign neoplasm (20 sources) History of polyp of colon; Translations: [Personal history of colonic polyps] Onset: 07-30-2022 07-30-2022 Episodic Other connective tissue disease (20 sources) Cramp; Translations: [Cramp of limb] Onset: 07-30-2022 07-30-2022 Episodic Other connective tissue disease (2 sources) Cramp and spasm; Translations: [Cramp and spasm] Onset: 07-30-2022 Episodic Other lower respiratory disease (4 sources) Other nonspecific abnormal finding of lung field; Translations: [Other nonspecific abnormal finding of lung field] Onset: 09-27-2024 Episodic Other screening for suspected conditions (not mental disorders or infectious disease) (4 sources) Encounter for screening for malignant neoplasm of prostate; Translations: [Encounter for screening for malignant neoplasm of prostate] Onset: 01-11-2024 Episodic Phlebitis; thrombophlebitis and thromboembolism (1 source) Personal history of other venous thrombosis and embolism; Translations: [Personal history of other venous thrombosis and embolism] Onset: 04-01-2022 Episodic Pneumonia (except that caused by tuberculosis or sexually transmitted disease) (10 sources) Pneumonia; Translations: [Pneumonia, unspecified organism] Onset: 09-27-2024 09-20-2024 Episodic Pulmonary heart disease (1 source) Personal history of pulmonary embolism; Translations: [Personal history of pulmonary embolism] Onset: 04-01-2022 Episodic Spondylosis; intervertebral disc disorders; other back problems (20 sources) Low back pain; Translations: [Lumbago] Onset: 07-30-2022 07-30-2022 Episodic Unclassified (20 sources) Onset: 01-12-2023 Resolved: 04-13-2025 01-12-2023 NEGATED: Highlighted row has not occurred!Residual codes; unclassified (20 sources) Disease Episodic Results Test Name Value Interpretation Reference Range Facility MR HIP LEFT WO IV CONTRASTon 02-20-2025 MR HIP LEFT WO IV CONTRAST Interpreted By: Ernie Toledo, STUDY: MRI of the pelvis and left hip without IV contrast; 02/20/2025 8:41 am INDICATION: Signs/Symptoms:pain. ,M16.12 Unilateral primary osteoarthritis, left hip COMPARISON: 02/06/2025 ACCESSION NUMBER(S): [id number] ORDERING CLINICIAN: NEYMAR XAVIER TECHNIQUE: MR imaging of the pelvis and left hip was obtained without the administration of intravenous contrast medium. FINDINGS: TENDONS: The insertions of the gluteus medius and gluteus minimus tendons are intact bilaterally. The insertions of the iliopsoas tendons are intact bilaterally. The adductor and hamstring tendon origins are intact bilaterally. JOINTS: Dedicated imaging of the left hip demonstrates severe diffuse articular cartilage thinning.. There is complex degenerative acetabular labral tearing. Limited large [id number] evaluation of the contralateral hip demonstrates postsurgical changes status post total right hip arthroplasty. Moderate left hip joint effusion with debris. There is no evidence of avascular necrosis. The sacroiliac joints appear unremarkable without evidence of erosion or significant degenerative change. Moderate pubic symphyseal degenerative change. Lower lumbar degenerative change, incompletely characterized. OSSEOUS STRUCTURES: No focal marrow replacing lesions are identified. There is no fracture. SOFT TISSUES: No muscle atrophy or tear is seen. The sciatic nerves are intact and unremarkable. INTERNAL ORGANS: Evaluation of the internal organs of the pelvis is limited on this study tailored for evaluation of the musculoskeletal system. Colonic diverticulosis without evidence of diverticulitis. IMPRESSION: Severe left hip osteoarthrosis with full-thickness cartilage loss and likely reactive joint effusion. Moderate pubic symphyseal degenerative change. Lower lumbar degenerative change, incompletely characterized. MACRO: None Signed by: Ernie Toledo 02/20/2025 12:16 PM Dictation workstation: [id number] [facility] MR Hip - left WO contraston 02-20-2025 Severe left hip osteoarthrosis with full-thickness cartilage loss and likely reactive joint effusion. Moderate pubic symphyseal degenerative change. Lower lumbar degenerative change, incompletely characterized. MACRO: None Signed by: Ernie Toledo 02/20/2025 12:16 PM Dictation workstation: [id number] MMODAL Interpreted By: Ernie Goodrich, STUDY: MRI of the pelvis and left hip without IV contrast; 02/20/2025 8:41 am INDICATION: Signs/Symptoms:pain. ,M16.12 Unilateral primary osteoarthritis, left hip COMPARISON: 02/06/2025 ACCESSION NUMBER(S): [id number] ORDERING CLINICIAN: NEYMAR XAVIER TECHNIQUE: MR imaging of the pelvis and left hip was obtained without the administration of intravenous contrast medium. FINDINGS: TENDONS: The insertions of the gluteus medius and gluteus minimus tendons are intact bilaterally. The insertions of the iliopsoas tendons are intact bilaterally. The adductor and hamstring tendon origins are intact bilaterally. JOINTS: Dedicated imaging of the left hip demonstrates severe diffuse articular cartilage thinning.. There is complex degenerative acetabular labral tearing. Limited large [id number]-[id number] evaluation of the contralateral hip demonstrates postsurgical changes status post total right hip arthroplasty. Moderate left hip joint effusion with debris. There is no evidence of avascular necrosis. The sacroiliac joints appear unremarkable without evidence of erosion or significant degenerative change. Moderate pubic symphyseal degenerative change. Lower lumbar degenerative change, incompletely characterized. OSSEOUS STRUCTURES: No focal marrow replacing lesions are identified. There is no fracture. SOFT TISSUES: No muscle atrophy or tear is seen. The sciatic nerves are intact and unremarkable. INTERNAL ORGANS: Evaluation of the internal organs of the pelvis is limited on this study tailored for evaluation of the musculoskeletal system. Colonic diverticulosis without evidence of diverticulitis. [facility] MMODAL Ernie Toledo MD - 02/20/2025 Interpreted By: Ernie Toledo, STUDY: MRI of the pelvis and left hip without IV contrast; 02/20/2025 8:41 am INDICATION: Signs/Symptoms:pain. ,M16.12 Unilateral primary osteoarthritis, left hip COMPARISON: 02/06/2025 ACCESSION NUMBER(S): [id number] ORDERING CLINICIAN: NEYMAR XAVIER TECHNIQUE: MR imaging of the pelvis and left hip was obtained without the administration of intravenous contrast medium. FINDINGS: TENDONS: The insertions of the gluteus medius and gluteus minimus tendons are intact bilaterally. The insertions of the iliopsoas tendons are intact bilaterally. The adductor and hamstring tendon origins are intact bilaterally. JOINTS: Dedicated imaging of the left hip demonstrates severe diffuse articular cartilage thinning.. There is complex degenerative acetabular labral tearing. Limited large pfzqo-yx-yubk evaluation of the contralateral hip demonstrates postsurgical changes status post total right hip arthroplasty. Moderate left hip joint effusion with debris. There is no evidence of avascular necrosis. The sacroiliac joints appear unremarkable without evidence of erosion or significant degenerative change. Moderate pubic symphyseal degenerative change. Lower lumbar degenerative change, incompletely characterized. OSSEOUS STRUCTURES: No focal marrow replacing lesions are identified. There is no fracture. SOFT TISSUES: No muscle atrophy or tear is seen. The sciatic nerves are intact and unremarkable. INTERNAL ORGANS: Evaluation of the internal organs of the pelvis is limited on this study tailored for evaluation of the musculoskeletal system. Colonic diverticulosis without evidence of diverticulitis. IMPRESSION: Severe left hip osteoarthrosis with full-thickness cartilage loss and likely reactive joint effusion. Moderate pubic symphyseal degenerative change. Lower lumbar degenerative change, incompletely characterized. MACRO: None Signed by: Ernie Toledo 02/20/2025 12:16 PM Dictation workstation: [id number] [facility] Work Phone: Radiology Study observation (narrative) [facility] Work Phone: MR Hip - left WO contrastOrd ered By: Ernie Toledo on 02-20-2025 [facility] Work Phone: ALBUMIN, RANDOM URINE W/CREA TININEon 02-14-2025 ALBUMIN, URINE 1.9 mg/dL Normal See Note: [facility] Comment on above: Order Comment: FASTI NG:YES FASTING: YES Result Comment: Refe rence Range: Reference Range Not established Performed By: #### 1 6802, 7017, 35182 #### [facility] [address], [address] [place] [id number] Respiratory Scientist: Sin Viveros MD ALBUMIN/CREATININE RATIO, RANDOM URINE 13 mg/g creat Normal <30 [facility] Comment on above: Order Comment: FASTI NG:YES FASTING: YES Result Comment: The ADA defines abnormalities in albumin excretion as follows: Albuminuria Category Result (mg/g creatinine) Normal to Mildly increased <30 Moderately increased 30-299 Severely increased > OR = 300 The ADA recommends that at least two of three specimens collected within a 3-6 month period be abnormal before considering a patient to be within a diagnostic category. Performed By: #### 1 6802, 0317, 99037 #### [facility] [address], [address] [place] [id number] Respiratory Scientist: Sin Viveros MD Creatinine (U) [Mass/Vol] 147 mg/dL Normal 20-320 [facility] Comment on above: Order Comment: FASTI NG:YES FASTING: YES Performed By: #### 1 6802, 6517, 56462 #### [facility] [place] [address] Respiratory Scientist: Sin Viveros MD COMPREHENSIVE METABOLIC PANE L W/ANION GAPon 02-14-2025 Albumin [Mass/Vol] 4.6 g/dL Normal 3.6-5.1 [facility] Comment on above: Performed By: #### 1 2, 65, 81515 #### [facility] [place] [address] Respiratory Scientist: Sin Viveros MD ALP [Catalytic activity/Vol] 61 U/L Normal 35-144 [facility] Comment on above: Performed By: #### 1 6801, 28, 52427 #### [facility] [place] [address] Respiratory Scientist: Sin Viveros MD ALT [Catalytic activity/Vol] 17 U/L Normal 9-46 [facility] Comment on above: Performed By: #### 1 6801, 6516, 83229 #### [facility] [place] [address] Respiratory Scientist: Sin Viveros MD AST [Catalytic activity/Vol] 19 U/L Normal 10-35 [facility] Comment on above: Performed By: #### 1 6801, 75, 79267 #### [facility] [place] [address] Respiratory Scientist: Sin Viveros MD Bilirubin [Mass/Vol] 0.8 mg/dL Normal 0.2-1.2 [facility] Comment on above: Performed By: #### 1 2, 83, 47642 #### [facility] [place] [address] Respiratory Scientist: Sin Viveros MD Calcium [Mass/Vol] 9.6 mg/dL Normal 8.6-10.3 [facility] Comment on above: Performed By: #### 1 6801, 30, 19352 #### [facility] of [address], [address] [place] [address] Respiratory Scientist: Sin Viveros MD Chloride [Moles/Vol] 102 mmol/L Normal 98-110 [facility] Comment on above: Performed By: #### 1 6801, 65, 82490 #### [facility] of [address], [address] [place] [address] Respiratory Scientist: Sin Viveros MD CO2 [Moles/Vol] 28 mmol/L Normal 20-32 [facility] Comment on above: Performed By: #### 1 6801, 65, 36491 #### [facility] [place] [address] Respiratory Scientist: Sin Viveros MD Creatinine [Mass/Vol] 0.88 mg/dL Normal 0.70-1.28 [facility] Comment on above: Performed By: #### 1 6801, 6516, 92287 #### [facility] [place] [address] Respiratory Scientist: Sin Viveros MD ELECTROLYTE BALANCE 8 mmol/L (calc) Normal 7-17 [facility] Comment on above: Performed By: #### 1 6801, 65, 62993 #### [facility] [place] [address] Respiratory Scientist: Sin Viveros MD GFR/1.73 sq M.predicted among non-blacks MDRD (S/P/Bld) [Vol rate/Area] 88 mL/min/{1.73_m2} Normal > OR = 60 [facility] Comment on above: Performed By: #### 1 6801, 65, 93459 #### [facility] [place] [address] Respiratory Scientist: Sin Viveros MD Glucose [Mass/Vol] 122 mg/dL High 65-99 [facility] Comment on above: Result Comment: Fasting reference interval For someone without known diabetes, a glucose value between 100 and 125 mg/dL is consistent with prediabetes and should be confirmed with a follow-up test. Performed By: #### 1 2, 65, 69199 #### [facility] [place] [address] Respiratory Scientist: Sin Viveros MD Potassium [Moles/Vol] 4.5 mmol/L Normal 3.5-5.[address] [facility] Comment on above: Performed By: #### 1 2, 65, 87467 #### [facility] [place] [address] Respiratory Scientist: Sin Viveros MD Protein [Mass/Vol] 7.1 g/dL Normal 6.1-8.1 [facility] Comment on above: Performed By: #### 1 2, 65, 34611 #### [facility] [place] [address] Respiratory Scientist: Sin Viveros MD Sodium [Moles/Vol] 138 mmol/L Normal 135-146 [facility] Comment on above: Performed By: #### 1 6801, 65, 35482 #### [facility] [place] [address] Respiratory Scientist: Sin Viveros MD Urea nitrogen [Mass/Vol] 18 mg/dL Normal 7-25 [facility] Comment on above: Performed By: #### 1 6801, 65, 70305 #### [facility] [place] [address] Respiratory Scientist: Sin Vievros MD HEMOGLOBIN A1c WITH eAGon eAG (mmol/L) 8.9 mmol/L Normal [facility] Comment on above: Performed By: #### 1 6801, 65, 20791 #### [facility] [place] [address] Respiratory Scientist: Sin Viveros MD HbA1c (Bld) [Mass fraction] 7.2 % High <5.7 [facility] Comment on above: Result Comment: For someone without known diabetes, a hemoglobin A1c value of 6.5% or greater indicates that they may have diabetes and this should be confirmed with a follow-up test. For someone with known diabetes, a value <7% indicates that their diabetes is well controlled and a value greater than or equal to 7% indicates suboptimal control. A1c targets should be individualized based on duration of diabetes, age, comorbid conditions, and other considerations. Currently, no consensus exists regarding use of hemoglobin A1c for diagnosis of diabetes for children. Performed By: #### 1 6802, 6517, 99796 #### [facility] [place] [address] Respiratory Scientist: Sin Viveros MD Magnesium [Mass/Vol] 160 mg/dL Normal [facility] Comment on above: Performed By: #### 1 6802, 65, 55234 #### [facility] [place] [address] Respiratory Scientist: Sin Viveros MD COMPREHENSIVE METABOLIC PANE L W/ANION GAPon 02-07-2025 Albumin [Mass/Vol] 4.7 g/dL Normal 3.6-5.1 [facility] Comment on above: Order Comment: FASTI NG:YESFASTING: YES Performed By: #### 9 7217, 55839, 69045, 7600, 37138 #### [facility] [place] [address] Respiratory Scientist: Sin Viveros MD ALP [Catalytic activity/Vol] 57 U/L Normal 35-144 [facility] Comment on above: Order Comment: FASTI NG:YESFASTING: YES Performed By: #### 9 7217, 04504, 01792, 7600, 18052 #### [facility] [place] [address] Respiratory Scientist: Sin Viveros MD ALT [Catalytic activity/Vol] 19 U/L Normal 9-46 [facility] Comment on above: Order Comment: FASTI NG:YESFASTING: YES Performed By: #### 9 7217, 25477, 93723, 7600, 04471 #### [facility] [address] [place] [address] Respiratory Scientist: Sin Viveros MD AST [Catalytic activity/Vol] 19 U/L Normal 10-35 [facility] Comment on above: Order Comment: FASTI NG:YESFASTING: YES Performed By: #### 9 7217, 07629, 62932, 7600, 65378 #### [facility] [place] [address] Respiratory Scientist: Sin Viveros MD Bilirubin [Mass/Vol] 0.7 mg/dL Normal 0.2-1.2 [facility] Comment on above: Order Comment: FASTI NG:YESFASTING: YES Performed By: #### 9 7217, 25078, 18087, 7600, 63719 #### [facility] [place] [address] Respiratory Scientist: Sin Viveros MD Calcium [Mass/Vol] 9.4 mg/dL Normal 8.6-10.3 [facility] Comment on above: Order Comment: FASTI NG:YESFASTING: YES Performed By: #### 9 7217, 36044, 61333, 7600, 44498 #### [facility] [place] [address] Respiratory Scientist: Sin Viveros MD Chloride [Moles/Vol] 104 mmol/L Normal 98-110 [facility] Comment on above: Order Comment: FASTI NG:YESFASTING: YES Performed By: #### 9 7217, 88926, 04432, 7600, 61684 #### [facility] [place] [address] Respiratory Scientist: Sin Viveros MD CO2 [Moles/Vol] 27 mmol/L Normal 20-32 [facility] Comment on above: Order Comment: FASTI NG:YESFASTING: YES Performed By: #### 9 7217, 05911, 35784, 7600, 74307 #### [facility] [place] [address] Respiratory Scientist: Sin Viveros MD Creatinine [Mass/Vol] 0.87 mg/dL Normal 0.70-1.[address] [facility] Comment on above: Order Comment: FASTI NG:YESFASTING: YES Performed By: #### 9 7217, 20926, 47689, 7600, 16696 #### [facility] [address], [address] [place] [address] Respiratory Scientist: Sin Viveros MD ELECTROLYTE BALANCE 9 mmol/L (calc) Normal 7-17 [facility] Comment on above: Order Comment: FASTI NG:YESFASTING: YES Performed By: #### 9 7217, 22130, 11472, 7600, 10040 #### [facility] [place] [address] Respiratory Scientist: Sin Viveros MD GFR/1.73 sq M.predicted among non-blacks MDRD (S/P/Bld) [Vol rate/Area] 88 mL/min/{1.73_m2} Normal > OR = 60 [facility] Comment on above: Order Comment: FASTI NG:YESFASTING: YES Performed By: #### 9 7217, 77759, 87950, 7600, 96000 #### [facility] [place] [address] Respiratory Scientist: Sin Viveros MD Glucose [Mass/Vol] 137 mg/dL High 65-99 [facility] Comment on above: Order Comment: FASTI NG:YESFASTING: YES Result Comment: Fasting reference interval For someone without known diabetes, a glucose value >125 mg/dL indicates that they may have diabetes and this should be confirmed with a follow-up test. Performed By: #### 9 7217, 50957, 88603, 7600, 18733 #### [facility] [address], [address] [place] [address] Respiratory Scientist: Sin Viveros MD Potassium [Moles/Vol] 4.8 mmol/L Normal 3.5-5.3 [facility] Comment on above: Order Comment: FASTI NG:YESFASTING: YES Performed By: #### 9 7217, 71425, 85713, 7600, 32330 #### [facility] [address], [address] [place] [address] Respiratory Scientist: Sin Viveros MD Protein [Mass/Vol] 7.2 g/dL Normal 6.1-8.1 [facility] Comment on above: Order Comment: FASTI NG:YESFASTING: YES Performed By: #### 9 7217, 46013, 04249, 7600, 29469 #### [facility] [address], [address] [place] [address] Respiratory Scientist: Sin Viveros MD Sodium [Moles/Vol] 140 mmol/L Normal 135-146 [facility] Comment on above: Order Comment: FASTI NG:YESFASTING: YES Performed By: #### 9 7217, 71109, 96423, 7600, 95142 #### [facility] [address], [address] [place] [address] Respiratory Scientist: Sin Viveros MD Urea nitrogen [Mass/Vol] 18 mg/dL Normal 7-25 [facility] Comment on above: Order Comment: FASTI NG:YESFASTING: YES Performed By: #### 9 7217, 10365, 99472, 7600, 65905 #### [facility] [address], [address] [place] [address] Respiratory Scientist: Sin Viveros MD HEMOGLOBIN A1c WITH eAGon eAG (mmol/L) 8.4 mmol/L Normal [facility] Comment on above: Performed By: #### 9 7217, 18051, 06487, 7600, 44385 #### [facility] [place] [address] Respiratory Scientist: Sin Viveros MD HbA1c (Bld) [Mass fraction] 6.9 % High <5.7 [facility] Comment on above: Result Comment: For someone without known diabetes, a hemoglobin A1c value of 6.5% or greater indicates that they may have diabetes and this should be confirmed with a follow-up test. For someone with known diabetes, a value <7% indicates that their diabetes is well controlled and a value greater than or equal to 7% indicates suboptimal control. A1c targets should be individualized based on duration of diabetes, age, comorbid conditions, and other considerations. Currently, no consensus exists regarding use of hemoglobin A1c for diagnosis of diabetes for children. Performed By: #### 9 7217, 18060, 84575, 7600, 62144 #### [facility] [address], [address] [place] [address] Respiratory Scientist: Sin Viveros MD Magnesium [Mass/Vol] 151 mg/dL Normal [facility] Comment on above: Performed By: #### 9 7217, 78867, 76286, 7600, 05533 #### [facility] [address], [address] [place] [address] Respiratory Scientist: Sin Viveros MD Lower extremity venous duple x lefton 02-06-2025 [place] [address] [phone], Vascular Lab Report VASC US LOWER EXTREMITY VENOUS DUPLEX LEFT Patient Name: HATTIE VALDERRAMA Reading [address] Jc Arce Physician: Study Date: 02/06/2025 Ordering [id number] NEYMAR Sánchez Provider: DUC MRN/PID: [id number] Fellow: Technologist: Monalisa Rojas RVT/AB Date of 1945 Technologist 2: /Age: years Gender: M Admission Status: Outpatient Location [facility] Performed: Diagnosis/ICD: Pain in left thigh-M79.652 CPT Codes: 70911 Peripheral venous duplex scan for DVT Limited CONCLUSIONS: Right Lower Venous: The right common femoral vein demonstrates normal spontaneous and respirophasic flow. Left Lower Venous: No evidence of acute deep vein thrombus visualized in the left lower extremity. Imaging & Doppler Findings: Right Flow CFV Spontaneous/Phasic Left Compress Thrombus Flow Distal External Iliac None CFV Yes None Spontaneous/Phasic PFV Yes None FV Proximal Yes None Spontaneous/Phasic FV Mid Yes None FV Distal Yes None Popliteal Yes None Spontaneous/Phasic Peroneal Yes None PTV Yes None [id number] Jc Arce MD Final Jc Wills MD - 02/06/2025 [place] [id number] [phone], Vascular Lab Report VASC US LOWER EXTREMITY VENOUS DUPLEX LEFT Patient Name: HATTIE VALDERRAMA Reading [id number] Jc Arce Physician: Study Date: 02/06/2025 Ordering [id number] NEYMAR M Provider: DUC MRN/PID: [id number] Fellow: Technologist: Monalisa Rojas RVT/AB Date of 1945 Technologist 2: /Age: years Gender: M Admission Status: Outpatient Location [facility] Performed: Diagnosis/ICD: Pain in left thigh-M79.652 CPT Codes: 94363 Peripheral venous duplex scan for DVT Limited CONCLUSIONS: Right Lower Venous: The right common femoral vein demonstrates normal spontaneous and respirophasic flow. Left Lower Venous: No evidence of acute deep vein thrombus visualized in the left lower extremity. Imaging & Doppler Findings: Right Flow CFV Spontaneous/Phasic Left Compress Thrombus Flow Distal External Iliac None CFV Yes None Spontaneous/Phasic PFV Yes None FV Proximal Yes None Spontaneous/Phasic FV Mid Yes None FV Distal Yes None Popliteal Yes None Spontaneous/Phasic Peroneal Yes None PTV Yes None [id number] Jc Arce MD Final [facility] Work Phone: Radiology Study observation (narrative) [facility] Work Phone: Lower extremity venous duple x leftOrdered By: Jc Arce on 02-06-2025 [facility] Work Phone: VASC US LOWER EXTREMITY VENO US DUPLEX LEFTon 02-06-2025 VASC US LOWER EXTREMITY VENOUS DUPLEX LEFT [place] [phone] [phone], Vascular Lab Report VASC US LOWER EXTREMITY VENOUS DUPLEX LEFT Patient Name: HATTIE VALDERRAMA Reading [id number] Jc Arce Physician: Study Date: 02/06/2025 Ordering [id number] NEYMAR Sánchez Provider: DUC MRN/PID: [id number] Fellow: Technologist: Monalisa Rojas RVT/AB Date of 1945 Technologist 2: /Age: years Gender: M Admission Status: Outpatient Location [facility] Performed: Diagnosis/ICD: Pain in left thigh-M79.652 CPT Codes: 92268 Peripheral venous duplex scan for DVT Limited CONCLUSIONS: Right Lower Venous: The right common femoral vein demonstrates normal spontaneous and respirophasic flow. Left Lower Venous: No evidence of acute deep vein thrombus visualized in the left lower extremity. Imaging & Doppler Findings: Right Flow CFV Spontaneous/Phasic Left Compress Thrombus Flow Distal External Iliac None CFV Yes None Spontaneous/Phasic PFV Yes None FV Proximal Yes None Spontaneous/Phasic FV Mid Yes None FV Distal Yes None Popliteal Yes None Spontaneous/Phasic Peroneal Yes None PTV Yes None [id number] Jc Arce MD Final Normal [facility] XR FEMUR LEFT 2+ VIEWSon XR FEMUR LEFT 2+ VIEWS Interpreted By: Ned Sexton, STUDY: XR FEMUR LEFT 2+ VIEWS; ; 02/06/2025 10:51 am INDICATION: Signs/Symptoms:pain. ,M79.652 Pain in left thigh COMPARISON: None. ACCESSION NUMBER(S): [id number] ORDERING CLINICIAN: NEYMAR XAVIER FINDINGS: LEFT FEMUR-AP AND LATERAL Moderate narrowing of the hip joint space is seen laterally consistent with osteoarthrosis. No fracture. Total left hip arthroplasty is present. The prosthesis are intact. Periprosthetic lucency. No suprapatellar effusion. IMPRESSION: Moderate osteoarthrosis of the left hip. MACRO: None Signed by: Ned Sexton 02/06/2025 1:43 PM Dictation workstation: [id number] Normal [facility] XR Femur - left 2 Viewson Moderate osteoarthro sis of the left hip. MACRO: None Signed by: Ned Sexton 02/06/2025 1:43 PM Dictation workstation: [id number] [facility] MMODAL Interpreted By: Ned Sexton, STUDY: XR FEMUR LEFT 2+ VIEWS; ; 02/06/2025 10:51 am INDICATION: Signs/Symptoms:pain. ,M79.652 Pain in left thigh COMPARISON: None. ACCESSION NUMBER(S): [id number] ORDERING CLINICIAN: NEYMAR XAVIER FINDINGS: LEFT FEMUR-AP AND LATERAL Moderate narrowing of the hip joint space is seen laterally consistent with osteoarthrosis. No fracture. Total left hip arthroplasty is present. The prosthesis are intact. Periprosthetic lucency. No suprapatellar effusion. [facility] MMODAL Ned Sexton MD - 02/06/2025 Interpreted By: Ned Sexton, STUDY: XR FEMUR LEFT 2+ VIEWS; ; 02/06/2025 10:51 am INDICATION: Signs/Symptoms:pain. ,M79.652 Pain in left thigh COMPARISON: None. ACCESSION NUMBER(S): [id number] ORDERING CLINICIAN: NEYMAR XAVIER FINDINGS: LEFT FEMUR-AP AND LATERAL Moderate narrowing of the hip joint space is seen laterally consistent with osteoarthrosis. No fracture. Total left hip arthroplasty is present. The prosthesis are intact. Periprosthetic lucency. No suprapatellar effusion. IMPRESSION: Moderate osteoarthrosis of the left hip. MACRO: None Signed by: Ned Sexton 02/06/2025 1:43 PM Dictation workstation: [id number] [facility] Work Phone: Radiology Study observation (narrative) [facility] Work Phone: XR Femur - left 2 ViewsOrder ed By: Ned Sexton on 02-06-2025 [facility] Work Phone: COMPREHENSIVE METABOLIC PANE L W/ANION GAPon 08-05-2025 ALBUMIN Normal [facility] Comment on above: Performed By: #### 9 7217, 26045, 74783, 7600, 28854 #### [facility] [address], [address] [place] [address] Respiratory Scientist: Sin Viveros MD ALKALINE PHOSPHATASE [facility] Comment on above: Performed By: #### 9 7217, 45617, 43548, 7600, 32807 #### [facility] [address], [address] [place] [address] Respiratory Scientist: Sin Viveros MD ALT Normal [facility] Comment on above: Performed By: #### 9 7217, 33946, 69850, 7600, 60104 #### [facility] [place] [address], [address] [place] [address] Respiratory Scientist: Sin Viveros MD AST Normal [facility] Comment on above: Performed By: #### 9 7217, 36242, 78831, 7600, 58445 #### [facility] [address], [address] [place] [address] Respiratory Scientist: Sin Viveros MD BILIRUBIN, TOTAL Normal [facility] Comment on above: Performed By: #### 9 7217, 22671, 35406, 7600, 44533 #### [facility] [address], [address] [place] [address] Respiratory Scientist: Sin Viveros MD CALCIUM Normal [facility] Comment on above: Performed By: #### 9 7217, 96500, 75876, 7600, 65271 #### [facility] [address], [address] [place], [place] [id number] Respiratory Scientist: Sin Viveros MD CARBON DIOXIDE Normal [facility] Comment on above: Performed By: #### 9 7217, 48530, 40810, 7600, 26290 #### [facility] [address], [address] [place] [address] Respiratory Scientist: Sin Viveros MD CHLORIDE Normal [facility] Comment on above: Performed By: #### 9 7217, 09984, 94905, 7600, 57995 #### [facility] [place] [address] , [address] [place] [address] Respiratory Scientist: Sin Viveros MD CREATININE Normal [facility] Comment on above: Performed By: #### 9 7217, 21174, 26931, 7600, 34765 #### [facility] [place] [address] , [address] [place] [address] Respiratory Scientist: Sin Viveros MD EGFR Normal [facility] Comment on above: Performed By: #### 9 7217, 16260, 18900, 7600, 77575 #### [facility] [place] [address] , [address] [place] [address] Respiratory Scientist: Sin Viveros MD ELECTROLYTE BALANCE Normal [facility] Comment on above: Performed By: #### 9 7217, 95634, 44894, 7600, 51964 #### [facility] [place] [address] , [address] [place] [address] Respiratory Scientist: Sin Viveros MD GLUCOSE Normal [facility] Comment on above: Performed By: #### 9 7217, 71750, 21163, 7600, 75178 #### [facility] [place] [address], [address] [place] [address] Respiratory Scientist: Sin Viveros MD POTASSIUM Normal [facility] Comment on above: Performed By: #### 9 7217, 50226, 94651, 7600, 73252 #### [facility] [place] [address], [address] [place] [address] Respiratory Scientist: Sin Viveros MD PROTEIN, TOTAL Normal [facility] Comment on above: Performed By: #### 9 7217, 71227, 64937, 7600, 90675 #### [facility] [address], [address] [place] [address] Respiratory Scientist: Sin Viveros MD SODIUM Normal [facility] Comment on above: Performed By: #### 9 7217, 81916, 91213, 7600, 94622 #### [facility] of [address], [address] [place] [address] Respiratory Scientist: Sin Viveros MD UREA NITROGEN (BUN) Normal [facility] Comment on above: Performed By: #### 9 7217, 88122, 68648, 7600, 02971 #### [facility] [address], [address] [place] [address] Respiratory Scientist: Sin Viveros MD HEMOGLOBIN A1c WITH eAGon eAG (mmol/L) 8.5 mmol/L Normal [facility] Comment on above: Performed By: #### 9 7217, 03666, 28790, 7600, 37487 #### [facility] [address], [address] [place] [address] Respiratory Scientist: Sin Viveros MD HbA1c (Bld) [Mass fraction] 7.0 % High <5.7 [facility] Comment on above: Result Comment: For someone without known diabetes, a hemoglobin A1c value of 6.5% or greater indicates that they may have diabetes and this should be confirmed with a follow-up test. For someone with known diabetes, a value <7% indicates that their diabetes is well controlled and a value greater than or equal to 7% indicates suboptimal control. A1c targets should be individualized based on duration of diabetes, age, comorbid conditions, and other considerations. Currently, no consensus exists regarding use of hemoglobin A1c for diagnosis of diabetes for children. Performed By: #### 9 7217, 64244, 79867, 7600, 18825 #### [facility] [address], [address] [place] [address] Respiratory Scientist: Sin Viveros MD Magnesium [Mass/Vol] 154 mg/dL [facility] Comment on above: Performed By: #### 9 7217, 46128, 53627, 7600, 59291 #### [facility] [address], [address] [place], [place] [id number] Respiratory Scientist: Sin Viveros MD LIPID PANEL, STANDARDon CHOL/HDLC RATIO Normal [facility] Comment on above: Order Comment: FASTI NG:YES FASTING: YES Performed By: #### 9 7217, 94727, 02414, 7600, 28833 #### [facility] [address], [address] [place] [address] Respiratory Scientist: Sin Viveros MD CHOLESTEROL, TOTAL Normal [facility] Comment on above: Order Comment: FASTI NG:YES FASTING: YES Performed By: #### 9 7217, 67454, 91856, 7600, 09661 #### [facility] [address], [address] [place] [address] Respiratory Scientist: Sin Viveros MD HDL CHOLESTEROL Normal [facility] Comment on above: Order Comment: FASTI NG:YES FASTING: YES Performed By: #### 9 7217, 52627, 25591, 7600, 90275 #### [facility] [address], [address] [place] [address] Respiratory Scientist: Sin Viveros MD LDL-CHOLESTEROL Normal [facility] Comment on above: Order Comment: FASTI NG:YES FASTING: YES Performed By: #### 9 7217, 52872, 34742, 7600, 22047 #### [facility] [place] [address] Respiratory Scientist: Sin Viveros MD NON HDL CHOLESTEROL Normal [facility] Comment on above: Order Comment: FASTI NG:YES FASTING: YES Performed By: #### 9 7217, 83174, 80701, 7600, 70409 #### [facility] [place] [address] Respiratory Scientist: Sin Viveros MD TRIGLYCERIDES Normal [facility] Comment on above: Order Comment: FASTI NG:YES FASTING: YES Performed By: #### 9 7217, 55854, 21108, 7600, 25428 #### [facility] [place] [address] Respiratory Scientist: Sin Viveros MD PSA, TOTAL, MONITORINGon PSA, TOTAL, MONITORING 1.98 ng/mL Normal < OR = 4.00 Q [facility] Comment on above: Result Comment: The total PSA value from this assay system is standardized against the WHO standard. The test result will be approximately 20% lower when compared to the equimolar-standardized total PSA (Renny Leona). Comparison of serial PSA results should be interpreted with this fact in mind. This test was performed using the Siemens chemiluminescent method. Values obtained from different assay methods cannot be used interchangeably. PSA levels, regardless of value, should not be interpreted as absolute evidence of the presence or absence of disease. Performed By: #### 9 7217, 13498, 59024, 7600, 93450 #### [facility] [address], [address] [place], [place] [address] Respiratory Scientist: Sin Viveros MD TSH W/REFLEX TO FT4on 2024 TSH W/REFLEX TO FT4 1.35 mIU/L Normal 0.40-4.50 [facility] Comment on above: Performed By: #### 9 7217, 70929, 54248, 7600, 45857 #### [facility] [address], [address] [place] [address] Respiratory Scientist: Sin Viveros MD CT CHEST W IV CONTRASTon CT CHEST W IV CONTRAST Interpreted By: Yaw Mena, STUDY: CT CHEST W IV CONTRAST; 10/13/2024 3:03 pm INDICATION: Follow-up recent history of pneumonia, status post recent discharged from outside hospital.. COMPARISON: None. ACCESSION NUMBER(S): [id number] ORDERING CLINICIAN: NEYMAR XAVIER TECHNIQUE: Helical data acquisition of the chest was obtained with IV contrast material. 70 cc IV Omnipaque 350 was administered. Images were reformatted in axial, coronal, and sagittal planes. FINDINGS: LUNGS AND AIRWAYS: Central airways are patent without endobronchial lesions. Patchy opacities in the lung bases, compatible atelectasis. No focal consolidation. No suspicious pulmonary nodule. No pneumothorax. No pleural effusion. Calcified lingular granuloma. MEDIASTINUM AND BRAD, LOWER NECK AND AXILLA: The visualized thyroid gland is within normal limits. No thoracic lymphadenopathy. Esophagus appears within normal limits as seen. HEART AND VESSELS: The thoracic aorta is of normal course and caliber with moderate vascular calcifications. Main pulmonary artery and its branches are normal in caliber. Moderate coronary artery calcifications are seen. The study is not optimized for evaluation of coronary arteries. Biatrial cardiomegaly. No evidence of pericardial effusion. UPPER ABDOMEN: Multiple splenic granulomas. Partially imaged colonic diverticulosis. CHEST WALL AND OSSEOUS STRUCTURES: 22 x 15 mm thin-walled lytic lesion involving the right scapula, at the inferior glenoid (series 9, image 60). Degenerative changes of the thoracic spine. IMPRESSION: 1. No suspicious pulmonary nodule or consolidation. 2. 22 x 15 mm thin-walled benign-appearing lytic lesion of the right scapula. 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 Signed by: Yaw Astudillo 10/15/2024 7:55 AM Dictation workstation: [id number] [facility] CBC (INCLUDES DIFF/PLT)on Basophils (Bld) [#/Vol] 0.045 10*3/uL Normal 0-200 [facility] Comment on above: Performed By: #### 9 6521, 6399 #### [facility] [address], [address] [place] [address] Respiratory Scientist: Sin Viveros MD Basophils/100 WBC (Bld) 0.5 % Normal [facility] Comment on above: Performed By: #### 9 5140, 6399 #### [facility] [address], [address] [place] [address] Respiratory Scientist: Sin Viveros MD Eosinophils (Bld) [#/Vol] 0.045 10*3/uL Normal 15-500 [facility] Comment on above: Performed By: #### 9 2600, 6399 #### [facility] [address], [address] [place] [address] Respiratory Scientist: Sin Viveros MD Eosinophils/100 WBC (Bld) 0.5 % Normal [facility] Comment on above: Performed By: #### 9 6531, 6399 #### [facility] [address], [address] [place] [address] Respiratory Scientist: Sin Viveros MD Erythrocyte distribution width (RBC) [Ratio] 13.4 % Normal 11.0-15.0 [facility] Comment on above: Performed By: #### 9 906, 6399 #### [facility] [place] [address] Respiratory Scientist: Sin Viveros MD Hematocrit (Bld) [Volume fraction] 37.1 % Low 38.5-50.0 [facility] Comment on above: Performed By: #### 9 548, 6399 #### [facility] [place] [address] Respiratory Scientist: Sin Viveros MD Hemoglobin (Bld) [Mass/Vol] 12.1 g/dL Low 13.2-17.1 [facility] Comment on above: Performed By: #### 9 315, 6399 #### [facility] [place] [address] Respiratory Scientist: Sin Viveros MD Lymphocytes (Bld) [#/Vol] 1.896 10*3/uL Normal 850-3900 [facility] Comment on above: Performed By: #### 9 032, 6399 #### [facility] [place] [address] Respiratory Scientist: Sin Viveros MD Lymphocytes/100 WBC (Bld) 21.3 % Normal [facility] Comment on above: Performed By: #### 9 934, 6399 #### [facility] [place] [address] Respiratory Scientist: Sin Viveros MD MCH (RBC) [Entitic mass] 30.9 pg Normal 27.0-33.0 [facility] Comment on above: Performed By: #### 9 036, 6399 #### [facility] [place] [address] Respiratory Scientist: Sin Viveros MD MCHC (RBC) [Mass/Vol] 32.6 g/dL Normal 32.0-36.[address] [facility] Comment on above: Result Comment: For adults, a slight decrease in the calculated MCHC value (in the range of 30 to 32 g/dL) is most likely not clinically significant; however, it should be interpreted with caution in correlation with other red cell parameters and the patient's clinical condition. Performed By: #### 9 690, 6399 #### [facility] of [address], [address] [place] [address] Respiratory Scientist: Sin Viveros MD MCV (RBC) [Entitic vol] 94.6 fL Normal 80.0-100.0 [facility] Comment on above: Performed By: #### 9 2664, 6399 #### [facility] [place] [address] Respiratory Scientist: Sin Viveros MD Monocytes (Bld) [#/Vol] 1.113 10*3/uL High 200-950 [facility] Comment on above: Performed By: #### 9 2664, 6399 #### [facility] of [address], [address] [place] [address] Respiratory Scientist: Sin Viveros MD Monocytes/100 WBC (Bld) 12.5 % Normal [facility] Comment on above: Performed By: #### 9 165, 6399 #### [facility] [place] [address] Respiratory Scientist: Sin Viveros MD Neutrophils (Bld) [#/Vol] 5.803 10*3/uL Normal 4541-4557 [facility] Comment on above: Performed By: #### 9 2664, 6399 #### [facility] of [address], [address] [place] [address] Respiratory Scientist: Sin Viveros MD Neutrophils/100 WBC (Bld) 65.2 % Normal [facility] Comment on above: Performed By: #### 9 266, 6399 #### [facility] of [address], [address] [place] [address] Respiratory Scientist: Sin Viveros MD Platelet mean volume (Bld) [Entitic vol] 11.3 fL Normal 7.5-12.5 [facility] Comment on above: Performed By: #### 9 9315, 6399 #### [facility] [place] [address] Respiratory Scientist: Sin Viveros MD Platelets (Bld) [#/Vol] 402 10*3/uL High 140-400 [facility] Comment on above: Performed By: #### 9 5, 6399 #### [facility] of [address], [address] [place] [address] Respiratory Scientist: Sin Viveros MD RBC (Bld) [#/Vol] 3.92 10*6/uL Low 4.20-5.80 [facility] Comment on above: Performed By: #### 9 861, 6399 #### [facility] of [address], [address] [place] [address] Respiratory Scientist: Sin Viveros MD WBC (Bld) [#/Vol] 8.9 10*3/uL Normal 3.8-10.8 [facility] Comment on above: Performed By: #### 9 4835, 6399 #### [facility] [place] [address] Respiratory Scientist: Sin Viveros MD COMPREHENSIVE METABOLIC PANE L W/ANION GAPon 10-07-2024 Albumin [Mass/Vol] 4.0 g/dL Normal 3.6-5.1 [facility] Comment on above: Performed By: #### 9 1725, 6399 #### [facility] [place] [address] Respiratory Scientist: Sin Viveros MD ALP [Catalytic activity/Vol] 50 U/L Normal 35-144 [facility] Comment on above: Performed By: #### 9 303, 6399 #### [facility] [place] [address] Respiratory Scientist: Sin Viveros MD ALT [Catalytic activity/Vol] 23 U/L Normal 9-46 [facility] Comment on above: Performed By: #### 9 164, 6399 #### [facility] of [address], [address] [place] [address] Respiratory Scientist: Sin Viveros MD AST [Catalytic activity/Vol] 18 U/L Normal 10-35 [facility] Comment on above: Performed By: #### 9 4955, 6399 #### [facility] of [address], [address] [place] [address] Respiratory Scientist: Sin Viveros MD Bilirubin [Mass/Vol] 0.7 mg/dL Normal 0.2-1.2 [facility] Comment on above: Performed By: #### 9 2664, 6399 #### [facility] of [address], [address] [place] [address] Respiratory Scientist: Sin Viveros MD Calcium [Mass/Vol] 9.3 mg/dL Normal 8.6-10.3 [facility] Comment on above: Performed By: #### 9 395, 6399 #### [facility] of [address], [address] [place] [address] Respiratory Scientist: Sin Viveros MD Chloride [Moles/Vol] 104 mmol/L Normal 98-110 [facility] Comment on above: Performed By: #### 9 424, 6399 #### [facility] of [address], [address] [place] [address] Respiratory Scientist: Sin Viveros MD CO2 [Moles/Vol] 30 mmol/L Normal 20-32 [facility] Comment on above: Performed By: #### 9 701, 6399 #### [facility] of [address], [address] [place] [address] Respiratory Scientist: Sin Viveros MD Creatinine [Mass/Vol] 0.89 mg/dL Normal 0.70-1.[address] [facility] Comment on above: Performed By: #### 9 514, 6399 #### [facility] of [address], [address] [place] [address] Respiratory Scientist: Sin Viveros MD ELECTROLYTE BALANCE 8 mmol/L (calc) Normal 7-17 [facility] Comment on above: Performed By: #### 9 706, 6399 #### [facility] [place] [address] Respiratory Scientist: Sin Viveros MD GFR/1.73 sq M.predicted among non-blacks MDRD (S/P/Bld) [Vol rate/Area] 88 mL/min/{1.73_m2} Normal > OR = 60 [facility] Comment on above: Performed By: #### 9 769, 6399 #### [facility] [address], [address] [place] [address] Respiratory Scientist: Sin Viveros MD Glucose [Mass/Vol] 74 mg/dL Normal 65-99 [facility] Comment on above: Result Comment: Fasting reference interval Performed By: #### 9 366, 6399 #### [facility] [place] [address] Respiratory Scientist: Sin Viveros MD Potassium [Moles/Vol] 4.8 mmol/L Normal 3.5-5.3 [facility] Comment on above: Performed By: #### 9 796, 6399 #### [facility] [place] [address] Respiratory Scientist: Sin Viveros MD Protein [Mass/Vol] 6.7 g/dL Normal 6.1-8.1 [facility] Comment on above: Performed By: #### 9 399, 6399 #### [facility] [place] [address] Respiratory Scientist: Sin Viveros MD Sodium [Moles/Vol] 142 mmol/L Normal 135-146 [facility] Comment on above: Performed By: #### 9 947, 6399 #### [facility] [place] [address] Respiratory Scientist: Sin Viveros MD Urea nitrogen [Mass/Vol] 19 mg/dL Normal 7-25 [facility] Comment on above: Performed By: #### 9 9865, 4099 #### [facility] [address], [address] [place] [address] Respiratory Scientist: Sin Viveros MD Proteinon 10-06-2024 Protein [Mass/Vol] 6.9 g/dL Normal 6.4-8.2 [facility] Comment on above: Performed By: #### 2 885-2 #### NEYMAR Martino ([id number]) [facility] ([facility]) [id number] [place] [address] Protein Qn (U) 13 mg/dL Normal 5-25 [facility] Comment on above: Performed By: #### 2 7298-9 #### NEYMAR Martino ([id number]) [facility] ([facility]) [address] [place] [address]46 Protein electrophoresis pane nicolás 10-06-2024 Albumin [Mass/Vol] 3.8 g/dL Normal 3.4-5.0 [facility] Comment on above: Performed By: #### 2 4351-9 #### NEYMAR Martino ([id number]) [facility] ([facility]) [id number] [place] [address] 26742 ALPHA 1 GLOBULIN 0.3 g/dL Normal 0.2-0.6 [facility] Comment on above: Performed By: #### 2 4351-9 #### NEYMAR Martino ([id number]) [facility] ([facility]) [id number] [place] [address] 75660 ALPHA 2 GLOBULIN 0.9 g/dL Normal 0.4-1.1 [facility] Comment on above: Performed By: #### 2 4351-9 #### NEYMAR Martino ([id number]) [facility] ([facility]) [address] [place] [address] 23940 BETA GLOBULIN 1.0 g/dL Normal 0.5-1.2 [facility] Comment on above: Performed By: #### 2 4351-9 #### NEYMAR Martino ([id number]) [facility] ([facility]) [address] [place] [address] 54117 GAMMA GLOBULIN 0.9 g/dL Normal 0.5-1.4 [facility] Comment on above: Performed By: #### 2 4351-9 #### NEYMAR BLACK L ([id number]) [facility] ([facility]) [address] [place] [address] 22330 PATH REVIEW-SERUM PROTEIN ELECTROPHORESIS Reviewed and approved by EDUARDO GANDHI on 10/07/24 at 6:11 PM. [facility] Comment on above: Performed By: #### 2 4351-9 #### NEYMAR BLACK L ([id number]) [facility] ([facility]) [address] [place] [address] 62352 PROTEIN ELECTROPHORESIS COMMENT Normal. [facility] Comment on above: Performed By: #### 2 4351-9 #### NEYMAR Martino ([id number]) [facility] ([facility]) [address] [place] [address] 34225 URINE PROTEIN ELECTROPHORESI Son 10-06-2024 Albumin Elph (U) [Mass fraction] 49.9 % [facility] Comment on above: Performed By: #### E LUSP #### NEYMAR BLACK L ([id number]) [facility] ([facility]) [address] [place] [address] 37717 Alpha 1 globulin Elph (U) [Mass fraction] 10.2 % [facility] Comment on above: Performed By: #### E LUSP #### NEYMAR BLANCHARDMOGUSTAVO L ([id number]) [facility] ([facility]) [address] [place] [address] 30921 Alpha 2 globulin Elph (U) [Mass fraction] 16.6 % [facility] Comment on above: Performed By: #### E LUSP #### NEYMAR BLACK L ([id number]) [facility] ([facility]) [address] [place] [address] 61633 Beta globulin Elph (U) [Mass fraction] 14.2 % [facility] Comment on above: Performed By: #### E LUSP #### NEYMAR BLANCHARDMOTZER L ([id number]) [facility] ([facility]) [address] [place] [address] 00351 Gamma globulin Elph (U) [Mass fraction] 9.1 % [facility] Comment on above: Performed By: #### E LUSP #### NEYMAR Martino ([id number]) [facility] ([facility]) [address] [place] [address] PATH REVIEW-URINE PROTEIN ELECTROPHORESIS Reviewed and approved by EDUARDO GANDHI on 10/07/24 at 6:10 PM. [facility] Comment on above: Performed By: #### E LUSP #### NEYMAR Martino ([id number]) [facility] ([facility]) [address] [place] [address] URINE ELECTROPHORESIS COMMENT SEE COMMENT [facility] Comment on above: Result Comment: Jake otto Performed By: #### E LUSP #### NEYMAR Martino ([id number]) [facility] ([facility]) [address] [place] [address] 26489 Culture, Blood (WB)on 2024 CUB Blood cultures x2, f rom two different sites No growth in 5 days. [facility] Comment on above: Performed By: #### L 501.4021, L503.6005, L500.4050, L300.4310, M200.1000, L100.0100, L300.3900 #### [facility] [address] [place], [address] Absolute neutrophil countOrd ered By: Marcelino Gracia on 09-22-2024 Neutrophils (Bld) [#/Vol] 12.5 10*3/uL High 2.0-7.7 [facility] Anion gap in Serum or Plasma Ordered By: Marcelino Gracia on 09-22-2024 Anion gap [Moles/Vol] 11 mmol/L 5-15 [facility] BUN/creatinine ratioOrdered By: Marcelino Gracia on 09-22-2024 Urea nitrogen/Creatinine [Mass ratio] 31.4 mg/mg High 10- [facility] Basic Metabolic Profile (BMP )on 09-22-2024 BUN/CRE 31.4 RATIO High 10- [facility] Comment on above: Performed By: #### L 501.4021, L503.6005, L500.4050, L300.4310, M200.1000, L100.0100, L300.3900 #### [facility] [address] [place], [address] Calcium [Mass/Vol] 8.8 mg/dL Normal 7.6-11.0 [facility] Comment on above: Performed By: #### L 501.4021, L503.6005, L500.4050, L300.4310, M200.1000, L100.0100, L300.3900 #### [facility] [address] [place], [address] Chloride [Moles/Vol] 105 mmol/L Normal 98-108 [facility] Comment on above: Performed By: #### L 501.4021, L503.6005, L500.4050, L300.4310, M200.1000, L100.0100, L300.3900 #### [facility] [address] [place], [address] CO2 [Moles/Vol] 23.6 mmol/L Normal 21.0-32.0 [facility] Comment on above: Performed By: #### L 501.4021, L503.6005, L500.4050, L300.4310, M200.1000, L100.0100, L300.3900 #### [facility] [address] [place], [address] Creatinine [Mass/Vol] 0.79 mg/dL Normal 0.70-1.20 [facility] Comment on above: Performed By: #### L 501.4021, L503.6005, L500.4050, L300.4310, M200.1000, L100.0100, L300.3900 #### [facility] [address] [place], [address] ECRCL 92.70 ml/min Normal 50-250 [facility] Comment on above: Performed By: #### L 501.4021, L503.6005, L500.4050, L300.4310, M200.1000, L100.0100, L300.3900 #### [facility] [address] [place], [address] GAP 11 Normal 5-15 [facility] Comment on above: Performed By: #### L 501.4021, L503.6005, L500.4050, L300.4310, M200.1000, L100.0100, L300.3900 #### [facility] [address] [place], [address] GFR/1.73 sq M.predicted among non-blacks MDRD (S/P/Bld) [Vol rate/Area] 91 mL/min/{1.73_m2} Normal >60 [facility] Comment on above: Result Comment: mL/m in/1.73m2 CKD-EPI Creatinine Equation (2020) Performed By: #### L 501.4021, L503.6005, L500.4050, L300.4310, M200.1000, L100.0100, L300.3900 #### [facility] [address] [place], [address] Glucose [Mass/Vol] 234 mg/dL High 70-99 [facility] Comment on above: Performed By: #### L 501.4021, L503.6005, L500.4050, L300.4310, M200.1000, L100.0100, L300.3900 #### [facility] [address] [place], [address] Potassium [Moles/Vol] 4.0 mmol/L Normal 3.3-5.1 [facility] Comment on above: Performed By: #### L 501.4021, L503.6005, L500.4050, L300.4310, M200.1000, L100.0100, L300.3900 #### [facility] [address] [place], [address] Sodium [Moles/Vol] 140 mmol/L Normal 133-145 [facility] Comment on above: Performed By: #### L 501.4021, L503.6005, L500.4050, L300.4310, M200.1000, L100.0100, L300.3900 #### [facility] [address] [place], [address] Urea nitrogen [Mass/Vol] 25 mg/dL High 4-19 [facility] Comment on above: Performed By: #### L 501.4021, L503.6005, L500.4050, L300.4310, M200.1000, L100.0100, L300.3900 #### [facility] [address] [place], [address] Basophil percentageOrdered B y: Marcelino Samia on 09-22-2024 Basophils/100 WBC (Bld) 0.1 % 0-1 [facility] Bedside Glucoseon 09-22-2024 FINGERSTICK GLU 260 mg/dL High 74-106 [facility] Comment on above: Result Comment: ANDREW GEMENT OF PATIENT CARE PER NURSING PROTOCOL Performed By: #### L 501.4021, L503.6005, L500.4050, L300.4310, M200.1000, L100.0100, L300.3900 #### [facility] [address] [place], [address] FINGERSTICK GLU 204 mg/dL High 74-106 [facility] Comment on above: Result Comment: ANDREW GEMENT OF PATIENT CARE PER NURSING PROTOCOL Performed By: #### L 501.4021, L503.6005, L500.4050, L300.4310, M200.1000, L100.0100, L300.3900 #### [facility] [address] [place], [address] CBC W/Diff, Automatedon 03-2 Absolute Lymph 1.06 X10 3/uL Normal 0.83-4.51 [facility] Comment on above: Performed By: #### L 501.4021, L503.6005, L500.4050, L300.4310, M200.1000, L100.0100, L300.3900 #### [facility] [address], [address] Absolute Neut 12.5 X10 3/uL High 2.0-7.7 [facility] Comment on above: Performed By: #### L 501.4021, L503.6005, L500.4050, L300.4310, M200.1000, L100.0100, L300.3900 #### [facility] [address] [facility] [place], [address] Basophils/100 WBC (Bld) 0.1 % Normal 0-1 [facility] Comment on above: Performed By: #### L 501.4021, L503.6005, L500.4050, L300.4310, M200.1000, L100.0100, L300.3900 #### [facility] [address] [facility] [place], [address] Eosinophils/100 WBC (Bld) 0.0 % Normal 0-5 [facility] Comment on above: Performed By: #### L 501.4021, L503.6005, L500.4050, L300.4310, M200.1000, L100.0100, L300.3900 #### [facility] [address] [facility] [place], [address] Erythrocyte distribution width (RBC) [Ratio] 14.4 % Normal 11.6-14.6 [facility] Comment on above: Performed By: #### L 501.4021, L503.6005, L500.4050, L300.4310, M200.1000, L100.0100, L300.3900 #### [facility] [address] [place], [address] Hematocrit (Bld) [Volume fraction] 35.1 % Low 40-54 [facility] Comment on above: Performed By: #### L 501.4021, L503.6005, L500.4050, L300.4310, M200.1000, L100.0100, L300.3900 #### [facility] [address] [place], [address] Hemoglobin (Bld) [Mass/Vol] 11.7 g/dL Low 13.0-16.5 [facility] Comment on above: Performed By: #### L 501.4021, L503.6005, L500.4050, L300.4310, M200.1000, L100.0100, L300.3900 #### [facility] [address] [place], [address] IG% 0.600 Normal 0.0-0.9 [facility] Comment on above: Result Comment: IG% - Immature Granulocytes (promyelocytes, myelocytes and metamyelocytes) > 1% indicates that a LEFT SHIFT is Present. Performed By: #### L 501.4021, L503.6005, L500.4050, L300.4310, M200.1000, L100.0100, L300.3900 #### [facility] [address] [place], [address] Lymphocytes/100 WBC (Bld) 7.4 % Low 19-41 [facility] Comment on above: Performed By: #### L 501.4021, L503.6005, L500.4050, L300.4310, M200.1000, L100.0100, L300.3900 #### [facility] [address] [place], [address] MCH (RBC) [Entitic mass] 31.0 pg Normal 27.0-32.0 [facility] Comment on above: Performed By: #### L 501.4021, L503.6005, L500.4050, L300.4310, M200.1000, L100.0100, L300.3900 #### [facility] [address] [place], [address] MCHC (RBC) [Mass/Vol] 33.3 g/dL Normal 32-36 [facility] Comment on above: Performed By: #### L 501.4021, L503.6005, L500.4050, L300.4310, M200.1000, L100.0100, L300.3900 #### [facility] [address] [place], [address] MCV (RBC) [Entitic vol] 92.9 fL Normal 80-94 [facility] Comment on above: Performed By: #### L 501.4021, L503.6005, L500.4050, L300.4310, M200.1000, L100.0100, L300.3900 #### [facility] [address] [place], [address] Monocytes/100 WBC (Bld) 4.9 % Normal 0-10 [facility] Comment on above: Performed By: #### L 501.4021, L503.6005, L500.4050, L300.4310, M200.1000, L100.0100, L300.3900 #### [facility] [address] [place], [address] Neutrophils/100 WBC (Bld) 87.0 % High 47-70 [facility] Comment on above: Performed By: #### L 501.4021, L503.6005, L500.4050, L300.4310, M200.1000, L100.0100, L300.3900 #### [facility] [address] [place], [address] Nucleated RBC (Bld) [#/Vol] 0 10*3/uL Normal 0-5 [facility] Comment on above: Performed By: #### L 501.4021, L503.6005, L500.4050, L300.4310, M200.1000, L100.0100, L300.3900 #### [facility] [address] [place], [address] Platelet mean volume (Bld) [Entitic vol] 11.0 fL Normal 6.2-12.0 [facility] Comment on above: Performed By: #### L 501.4021, L503.6005, L500.4050, L300.4310, M200.1000, L100.0100, L300.3900 #### [facility] [address] [place], [address] Platelets (Bld) [#/Vol] 250 10*3/uL Normal 150-450 [facility] Comment on above: Performed By: #### L 501.4021, L503.6005, L500.4050, L300.4310, M200.1000, L100.0100, L300.3900 #### [facility] [address], [address] RBC (Bld) [#/Vol] 3.78 10*6/uL Low 4.6-6.2 [facility] Comment on above: Performed By: #### L 501.4021, L503.6005, L500.4050, L300.4310, M200.1000, L100.0100, L300.3900 #### [facility] [address] [place], [address] RDW SD 48.7 fl High 35.1-43.9 [facility] Comment on above: Performed By: #### L 501.4021, L503.6005, L500.4050, L300.4310, M200.1000, L100.0100, L300.3900 #### [facility] [address] [place], [address] WBC (Bld) [#/Vol] 14.4 10*3/uL High 4.4-11.0 [facility] Comment on above: Performed By: #### L 501.4021, L503.6005, L500.4050, L300.4310, M200.1000, L100.0100, L300.3900 #### [facility] [address] [place], [place], [id number] (723) Carbon dioxide, total [Moles /volume] in Central venous bloodOrdered By: Marcelino Gracia on 09-22-2024 CO2 [Moles/Vol] 23.6 mmol/L 21.0-32.0 [facility] Chloride assayOrdered By: Wai Gracia on 09-22-2024 Chloride [Moles/Vol] 105 mmol/L 98-108 [facility] Eosinophil percentageOrdered By: Marcelino Gracia on 09-22-2024 Eosinophils/100 WBC (Bld) 0.0 % 0-5 [facility] Erythrocyte distribution wid th ratioOrdered By: Marcelino Gracia on 09-22-2024 Erythrocyte distribution width (RBC) [Ratio] 14.4 % 11.6-14.6 [facility] Erythrocyte distribution wid th standard deviationOrdered By: Marcelino Gracia on 09-22-2024 Erythrocyte distribution width (RBC) [Entitic vol] 48.7 fL High 35.1-43.9 [facility] Estimation of creatinine jesus aranceOrdered By: Marcelino Gracia on 09-22-2024 Estimated Creatinine Clearance Calc 92.70 ml/min 50-250 [facility] GFR/1.73 sq M.predicted mayda g non-blacks MDRD (S/P/Bld) [Vol rate/Area]Ordered By: Marcelino Gracia on 09-22-2024 Estimated GFR (MDRD) Non-Af Amer 91 >60 [facility] Comment on above: mL/min/1.73m2 CKD-EP I Creatinine Equation (2020) [facility]dered By: Marcelino Gracia on 09-22-2024 Bedside Glucose (Misc Panel) 260 mg/dL High 74-106 [facility] Comment on above: MANAGEMENT OF PATIEN T CARE PER NURSING PROTOCOL Hematocrit Auto (Bld) [Volum e fraction]Ordered By: Marcelino Gracia on 09-22-2024 Hematocrit (Bld) [Volume fraction] 35.1 % Low 40-54 [facility] Hemoglobin measurementOrdere d By: Marcelino Gracia on 09-22-2024 Hemoglobin (Bld) [Mass/Vol] 11.7 g/dL Low 13.0-16.5 [facility] Immature granulocytes/100 WB C Auto (Bld)Ordered By: Marcelino Gracia on 09-22-2024 Immature granulocytes/100 WBC (Bld) 0.600 % 0.0-0.9 [facility] Comment on above: IG% - Immature Granu locytes (promyelocytes, myelocytes and metamyelocytes) > 1% indicates that a LEFT SHIFT is Present. International normalized rat io (INR) calculationOrdered By: Marcelino Gracia on 09-22-2024 INR Coag (Bld) [Relative time] 2.3 {INR} [facility] Lymphocytes Auto (Unsp spec) [#/Vol]Ordered By: Marcelino Gracia on 09-22-2024 Lymphocytes (Bld) [#/Vol] 1.06 10*3/uL 0.83-4.51 [facility] Lymphocytes/100 WBC Auto (Un sp spec)Ordered By: Marcelino Gracia on 09-22-2024 Lymphocytes/100 WBC (Bld) 7.4 % Low 19-41 [facility] MCV (mean corpuscular volume ) determinationOrdered By: Marcelino Gracia on 09-22-2024 MCV (RBC) [Entitic vol] 92.9 fL 80-94 [facility] Mean corpuscular hemoglobin (MCH) determinationOrdered By: Marcelino Gracia on 09-22-2024 MCH (RBC) [Entitic mass] 31.0 pg 27.0-32.0 [facility] Mean corpuscular hemoglobin concentration (MCHC) determinationOrdered By: Marcelino Gracia on 09-22-2024 MCHC (RBC) [Mass/Vol] 33.3 g/dL 32-36 [facility] Mean platelet volume determi nationOrdered By: Marcelino rGacia on 09-22-2024 Platelet mean volume (Bld) [Entitic vol] 11.0 fL 6.2-12.0 [facility] Monocyte percentageOrdered B y: Marcelino Gracia on 09-22-2024 Monocytes/100 WBC (Bld) 4.9 % 0-10 [facility] Neutrophil percentageOrdered By: Marcelino Gracia on 09-22-2024 Neutrophils/100 WBC (Bld) 87.0 % High 47-70 [facility] Nucleated red blood cell per centageOrdered By: Marcelino Gracia on 09-22-2024 Nucleated RBC/100 WBC (Bld) [Ratio] 0 % 0-5 [facility] Phosphoruson 09-22-2024 Phosphate [Mass/Vol] 2.1 mg/dL Low 2.7-4.5 [facility] Comment on above: Performed By: #### L 501.4021, L503.6005, L500.4050, L300.4310, M200.1000, L100.0100, L300.3900 #### [facility] [address] [place], [address] Platelet countOrdered By: Wai Gracia on 09-22-2024 Platelets (Bld) [#/Vol] 250 10*3/uL 150-450 [facility] Potassium (Unsp spec) [Mass/ Vol]Ordered By: Marcelino Gracia on 09-22-2024 Potassium [Moles/Vol] 4.0 mmol/L 3.3-5.1 [facility] Prothrombin Time w/INRon INR Coag (PPP) [Relative time] 2.3 {INR} Normal [facility] Comment on above: Performed By: #### L 501.4021, L503.6005, L500.4050, L300.4310, M200.1000, L100.0100, L300.3900 #### [facility] [address] [place], [address] PT Coag (PPP) [Time] 25.7 s High 11.7-14.9 [facility] Comment on above: Performed By: #### L 501.4021, L503.6005, L500.4050, L300.4310, M200.1000, L100.0100, L300.3900 #### [facility] [address] [place], [address] Prothrombin timeOrdered By: Marcelino Gracia on 09-22-2024 PT Coag (PPP) [Time] 25.7 s High 11.7-14.9 [facility] RBC Auto (Bld) [#/Vol]Ordere d By: Marcelino Gracia on 09-22-2024 RBC (Bld) [#/Vol] 3.78 10*6/uL Low 4.6-6.2 [facility] Serum creatinine measurement (mass/volume)Ordered By: Marcelino Gracia on 09-22-2024 Creatinine [Mass/Vol] 0.79 mg/dL 0.70-1.20 [facility] Serum glucose measurement (m ass/volume)Ordered By: Marcelino Gracia on 09-22-2024 Glucose [Mass/Vol] 234 mg/dL High 70-99 [facility] Serum or plasma calcium camryn urement (mass/volume)Ordered By: Marcelino Gracia on 09-22-2024 Calcium [Mass/Vol] 8.8 mg/dL 7.6-11.0 [facility] Serum or plasma urea nitroge n measurement (mass/volume)Ordered By: Marcelino Gracia on 09-22-2024 Urea nitrogen [Mass/Vol] 25 mg/dL High 4-19 [facility] Serum phosphorus measurement Ordered By: Zeferino Dwyer on 09-22-2024 Phosphorus Level 2.1 mg/dL Low 2.7-4.5 [facility] Sodium levelOrdered By: Marcelino Gracia on 09-22-2024 Sodium [Moles/Vol] 140 mmol/L 133-145 [facility] White blood cell (WBC) count Ordered By: Marcelino Gracia on 09-22-2024 WBC (Bld) [#/Vol] 14.4 10*3/uL High 4.4-11.0 [facility] Bedside Glucoseon 09-21-2024 FINGERSTICK GLU 226 mg/dL High 74-106 [facility] Comment on above: Result Comment: ANDREW GEMENT OF PATIENT CARE PER NURSING PROTOCOL Performed By: #### L 501.4021, L503.6005, L500.4050, L300.4310, M200.1000, L100.0100, L300.3900 #### [facility] [address] [place], [address] FINGERSTICK GLU 253 mg/dL High [address] [facility] Comment on above: Result Comment: ANDREW GEMENT OF PATIENT CARE PER NURSING PROTOCOL Performed By: #### L 501.4021, L503.6005, L500.4050, L300.4310, M200.1000, L100.0100, L300.3900 #### [facility] [address] [place], [address] FINGERSTICK GLU 218 mg/dL High [address] Comment on above: Result Comment: ANDREW GEMENT OF PATIENT CARE PER NURSING PROTOCOL Performed By: #### L 501.4021, L503.6005, L500.4050, L300.4310, M200.1000, L100.0100, L300.3900 #### [facility] [address] [place], [address] FINGERSTICK GLU 220 mg/dL High [address] [place] [address] Comment on above: Result Comment: ANDREW GEMENT OF PATIENT CARE PER NURSING PROTOCOL Performed By: #### L 501.4021, L503.6005, L500.4050, L300.4310, M200.1000, L100.0100, L300.3900 #### [facility] [address] [place], [place], [address] Bilirubin, totalOrdered By: Zeferino Dwyer on 09-21-2024 Bilirubin [Mass/Vol] 0.59 mg/dL 0.00-1.30 [facility] CBC W/Diff, Automatedon 08-28 SMEAR COMMENT SCANNED Normal [facility] Comment on above: Result Comment: LEFT SHIFT: BANDS PRESENT 2+ Performed By: #### L 501.4021, L503.6005, L500.4050, L300.4310, M200.1000, L100.0100, L300.3900 #### [facility] [address] [place], [place], [id number] CT Chest, Abd, Pel w/Contras ton 09-21-2024 CT Chest, Abd, Pel w/Contrast [facility] Imaging Services [address] [place], [place] [address] CT Chest, Abd, Pel w/Contrast MR#: [id number] Acct: [id number] Name: HATTIE VALDERRAMA Rep #: [id number] : 1945 M 79 From: Yaw noriega MD PCP: Dr. Neymar Xavier MD Status: ADM IN Study: CT Chest, Abd, Pel w/Contrast Date of Exam: Exam# [id number] Ordering Dr: Zeferino Estrada DO PROCEDURE: CT CHEST, ABD, PEL W/CONTRAST 09/21/2024 REASON FOR EXAM: SUSPECTED MASS AND PNA ON NONCONTRASTED CT. TECHNIQUE: Chest, abdomen and pelvis CT with intravenous contrast. Coronal and Sagittal reconstruction series were provided. One or more dose reduction techniques were used (e.g., Automated exposure control, adjustment of the mA and/or kV according to patient size, use of iterative reconstruction technique. PATIENT PREPARATION: Per protocol ORAL CONTRAST TYPE: None. AMOUNT: mL CONTRAST: Isovue 370 VOLUME: 100mL Gauge IV COMPARISON: CT chest 09/20/[address] abdomen and pelvis 05/20/2022 FINDINGS: CT CHEST: Hardware: None . Lymph nodes: Mildly enlarged bilateral hilar lymph nodes. For example 16 mm left hilar node (series 2, image 64) Heart and Vasculature: Cardiomegaly. No pericardial effusion. Atherosclerotic calcifications of the thoracic aorta. Pulmonary arteries are unremarkable. Lungs and Airways: Central airways are patent without endobronchial lesions. Left lower lobe consolidative opacity and scattered ground-glass opacities, likely secondary to atrophy lobar pneumonia. No suspicious pulmonary nodules. No pneumothorax. No pleural effusion. Bones: Degenerative changes of the thoracic spine. Diffuse circumferential esophageal wall thickening. CT ABDOMEN/PELVIS: Liver: Homogeneous attenuation. Scattered calcified granulomas. Gallbladder: No ductal dilation. Gallbladder is unremarkable. Spleen: No splenomegaly. Calcified granulomas. Pancreas: Normal size without evidence of mass surrounding inflammation or ductal dilation. Adrenals: Left adrenal thickening. Right adrenal gland is unremarkable. Kidneys: 8 mm medial left upper pole simple cyst. No suspicious mass or enhancement. 4 mm right inferior pole calculus without hydronephrosis. Bladder: Urinary bladder is unremarkable. Reproductive Organs: Mild prostatomegaly. Bowel: Stomach is unremarkable. No bowel dilation or wall thickening. Colonic diverticulosis without diverticulitis. Moderate colonic stool. Appendix is normal. Lymph nodes: No suspicious abdominopelvic adenopathy. Vasculature: Severe diffuse diffuse atherosclerotic calcifications are noted. Peritoneum / Retroperitoneum: No ascites. Bones: Degenerative changes of the spine. Right hip arthroplasty. CT/CT Chest, Abd, Pel w/Contrast IMPRESSION: Chest: Left lower lobe consolidative and ground-glass opacities, compatible with pneumonia. A few enlarged hilar likely reactive lymph nodes. Abdomen and pelvis: No acute findings in the abdomen and pelvis. 4 mm right inferior pole calculus, without hydronephrosis. Colonic diverticulosis without diverticulitis. Reading Location: [facility] CC: Dr. Zeferino Estrada DO; Dr. Neymar Xavier MD Press Operator Meat: Signed Normal [facility] Calculated very low density lipoprotein (VLDL) cholesterol measurementOrdered By: Zeferino Dwyer on 09-21-2024 VLDL Cholesterol 20 mg/dL 5-40 [facility] Comprehensive Metabolic Prof ilon 09-21-2024 Albumin [Mass/Vol] 3.6 g/dL Normal 3.4-4.8 [facility] Comment on above: Performed By: #### L 501.4021, L503.6005, L500.4050, L300.4310, M200.1000, L100.0100, L300.3900 #### [facility] [address] [place], [address] Albumin/Globulin [Mass ratio] 1.1 {ratio} Normal 0.9-2.4 [facility] Comment on above: Performed By: #### L 501.4021, L503.6005, L500.4050, L300.4310, M200.1000, L100.0100, L300.3900 #### [facility] [address], [address] ALK PHOS 54 U/L Normal 40-129 [facility] Comment on above: Performed By: #### L 501.4021, L503.6005, L500.4050, L300.4310, M200.1000, L100.0100, L300.3900 #### [facility] [address], [address] ALT [Catalytic activity/Vol] 17 U/L Normal <=46 [facility] Comment on above: Performed By: #### L 501.4021, L503.6005, L500.4050, L300.4310, M200.1000, L100.0100, L300.3900 #### [facility] [address] [place], [address] AST [Catalytic activity/Vol] 24 U/L Normal <=37 [facility] Comment on above: Performed By: #### L 501.4021, L503.6005, L500.4050, L300.4310, M200.1000, L100.0100, L300.3900 #### [facility] [address] [place], [address] Bilirubin [Mass/Vol] 0.59 mg/dL Normal 0.00-1.30 [facility] Comment on above: Performed By: #### L 501.4021, L503.6005, L500.4050, L300.4310, M200.1000, L100.0100, L300.3900 #### [facility] [address] [place], [address] BUN/CRE 28.5 RATIO High 10-20 [facility] Comment on above: Performed By: #### L 501.4021, L503.6005, L500.4050, L300.4310, M200.1000, L100.0100, L300.3900 #### [facility] [address] [place], [address] Calcium [Mass/Vol] 7.1 mg/dL Low 7.6-11.0 [facility] Comment on above: Performed By: #### L 501.4021, L503.6005, L500.4050, L300.4310, M200.1000, L100.0100, L300.3900 #### [facility] [address] [place], [address] Chloride [Moles/Vol] 104 mmol/L Normal 98-108 [facility] Comment on above: Performed By: #### L 501.4021, L503.6005, L500.4050, L300.4310, M200.1000, L100.0100, L300.3900 #### [facility] [address] [place], [address] CO2 [Moles/Vol] 21.5 mmol/L Normal 21.0-32.0 [facility] Comment on above: Performed By: #### L 501.4021, L503.6005, L500.4050, L300.4310, M200.1000, L100.0100, L300.3900 #### [facility] [address] [place], [address] Creatinine [Mass/Vol] 0.86 mg/dL Normal 0.70-1.20 [facility] Comment on above: Performed By: #### L 501.4021, L503.6005, L500.4050, L300.4310, M200.1000, L100.0100, L300.3900 #### [facility] [address] [place], [address] ECRCL 86.23 ml/min Normal 50-250 [facility] Comment on above: Performed By: #### L 501.4021, L503.6005, L500.4050, L300.4310, M200.1000, L100.0100, L300.3900 #### [facility] [address] [place], [place], [id number] (257) GAP 12 Normal 5-15 [facility] Comment on above: Performed By: #### L 501.4021, L503.6005, L500.4050, L300.4310, M200.1000, L100.0100, L300.3900 #### [facility] [address] [place], [address] GFR/1.73 sq M.predicted among non-blacks MDRD (S/P/Bld) [Vol rate/Area] 89 mL/min/{1.73_m2} Normal >60 [facility] Comment on above: Result Comment: mL/m in/1.73m2 CKD-EPI Creatinine Equation (2020) Performed By: #### L 501.4021, L503.6005, L500.4050, L300.4310, M200.1000, L100.0100, L300.3900 #### [facility] [address] [place], [place], [phone] ([address] Globulin (S) [Mass/Vol] 3.2 g/dL Normal 2.2-4.2 [facility] Comment on above: Performed By: #### L 501.4021, L503.6005, L500.4050, L300.4310, M200.1000, L100.0100, L300.3900 #### [facility] [address] [place], [address] Glucose [Mass/Vol] 260 mg/dL High 70-99 [facility] Comment on above: Performed By: #### L 501.4021, L503.6005, L500.4050, L300.4310, M200.1000, L100.0100, L300.3900 #### [facility] [address] [place], [address] Potassium [Moles/Vol] 4.1 mmol/L Normal 3.3-5.1 [facility] Comment on above: Performed By: #### L 501.4021, L503.6005, L500.4050, L300.4310, M200.1000, L100.0100, L300.3900 #### [facility] [address] [place], [address] Sodium [Moles/Vol] 137 mmol/L Normal 133-145 [facility] Comment on above: Performed By: #### L 501.4021, L503.6005, L500.4050, L300.4310, M200.1000, L100.0100, L300.3900 #### [facility] [address] [place], [address] T PROT 6.7 g/dL Normal 5.9-8.4 [facility] Comment on above: Performed By: #### L 501.4021, L503.6005, L500.4050, L300.4310, M200.1000, L100.0100, L300.3900 #### [facility] [address] [place], [address] Urea nitrogen [Mass/Vol] 25 mg/dL High 4-19 [facility] Comment on above: Performed By: #### L 501.4021, L503.6005, L500.4050, L300.4310, M200.1000, L100.0100, L300.3900 #### [facility] [address] [place], [address] Consultation - Intensiviston 09-21-2024 Consultation - Office Machine Servicer Apprentice [facility] Medical Records Department [address] [place] [address] Consultation - Office Machine Servicer Apprentice 09/21/24 0753 MR#: [id number] Acct: [id number] Name: HATTIE VALDERRAMA Rep #: [id number] : 1945 79 From: Garrett Ambrocio DO PCP: Dr. Neymar Xavier MD Status:ADM IN Location: ICU ICU02-1 Assessment Plan Assessment/Plan (1) Acute hypoxic respiratory failure: PLAN: Plan RECOMMENDATIONS: 1. Continue to wean supplemental oxygen to maintain saturations at or above 90%. 2. Continue Tamiflu along with empiric antimicrobials. 3. Continue corticosteroids as ordered. 4. Continue Coumadin per home regimen. 5. Encourage incentive spirometer use and mobilize patient as tolerated. 6. Recommend follow-up chest imaging in 6 to 8 weeks to document resolution of pneumonia. IMPRESSIONS: 1. Acute hypoxemic respiratory failure Appears secondary to underlying influenza A coupled with probable superimposed bacterial pneumonia. The patient has been initiated on appropriate medical therapy, including Tamiflu, antimicrobials and corticosteroids. He will be continued on supplemental oxygen to maintain saturations at or above 90%. Ultimately, I would recommend that follow-up imaging of the chest be completed in 6 to 8 weeks to document resolution of the patient's presenting consolidative opacity and ground glass changes. Encourage incentive spirometer use and mobilize patient as tolerated. 2. History of atrial fibrillation/hypertensio n/hyperlipidemia/diabete s mellitus Complicates care, management, recovery and prognosis. Continue home medications as indicated. Physical therapy to work with the patient. CODE STATUS: Full code (discussed with the patient this morning) This note was generated with Friend Trusted[employer] software. It may contain incorrect words, spelling, and punctuation that were not noted in checking the note before signing. HPI Consult Data Date of Consult: 09/21/24 HPI Narrative Reason for Consultation: Acute hypoxemic respiratory failure HPI Narrative: The patient is a 79-year-old male, with a history as outlined below, who presented to the emergency department on September 20 with generalized malaise, cough and shortness of breath of approximately 3 days duration. The patient's has also been ill with similar symptoms. The patient is a lifelong non-smoker. He has never been diagnosed with COPD or asthma. He does have a known history of atrial fibrillation on Coumadin along with diabetes mellitus. On presentation to the emergency department, the patient was documented to have a low-grade fever and was tachycardic and tachypneic. The patient, however, was otherwise hemodynamically stable and was initially saturating 92% on room air. Laboratory evaluation was notable for a white blood cell count of 14,000. INR was therapeutic at 2.8. Arterial blood gas demonstrated a pH of 7.4 with a pCO2 of 32 and pO2 of 74. Chemistry profile revealed a normal creatinine with a lactate of 2.4. Urine analysis was unremarkable. Toxicology screen was negative. Influenza A PCR was positive. Blood and urine cultures were collected. CT imaging of the chest demonstrated a left lower lobe consolidation with scattered groundglass opacities. The patient was ultimately placed on heated high flow oxygen and initiated on Tamiflu, antimicrobials and IV steroids. The patient was admitted to the medical intensive care unit for further management. This morning, the patient is alert and appropriately interactive. He has remained hemodynamically stable and has been weaned to nasal cannula oxygen at 3 L/min via nasal cannula. [facility] Medical History Kidney stones Diabetes Atrial fibrillation Hypertension Home Medications ???Medication ???Instructions ???Recorded ???Last Taken ???Type atorvastatin 40 mg tablet 40 mg PO QHS CHOLESTEROL 05/20/22 Unknown History glimepiride 2 mg tablet 2 mg PO DAILY DIABETES 05/20/22 Un known History losartan 50 mg tablet 100 mg PO DAILY BLOOD PRESSURE Unknown History metformin 500 mg tablet 1,000 mg PO BID DIABETES 05/20/22 Unknown History metoprolol succinate 100 mg 100 mg PO DAILY BLOOD PRESSURE AND 05/20/22 Unknown History tablet,extended release 24 hr HEART RATE warfarin 2 mg tablet 4 mg PO SUTUTHSA 05/20/22 Unknown History warfarin 2 mg tablet 6 mg PO QMWF 05/20/22 Unknown Hist ory Allergy/AdvReac Type Severity Reaction Status Date / Time No Known Allergies Allergy Verified 09/20/24 17:36 Surgical History History of hip replacement History of knee replacement Social History Smoking Status: Former smoker ROS ROS Narrative 10 systems were review (more content not included)... Normal [facility] Electrocardiogram reportOrde red By: Keon Vega on 09-21-2024 EKG study [facility] Cardiovascular Services [address] [place] [address] 12 Lead EKG 09/20/24 1742 MR#: [id number] Acct: [id number] Name: HATTIE VALDERRAMA Rep #:[id number] : 1945 79 From: Keon Vega MD Attending Dr: Dr. Marcelino Gracia DO Status: ADM IN Ordering Dr: Stone Leong ate: 09/20/24 Location: ICU Sex: M C Admitted: 09/20/24 Test Reason : SOB Blood Pressure : */* mmHG Vent. Rate : 108 BPM Atrial Rate : * BPM P-R Int : * ms QRS Dur : 126 ms QT Int : 348 ms P-R-T Axes : * -14 26 degrees QTcB Int : 466 ms Atrial fibrillation with rapid ventricular response Right bundle branch block Abnormal ECG Confirmed by KEON VEGA MD ([id number]), book or script editor WENDY PACHECO ([id number]) on 09/21/2024 8:30:42 AM Referred By: Confirmed By: KEON VEGA MD 09/21/24 0830 Date _ Keon Vega MD CC: Dr. Stone Leong DO; Dr. Marcelino Gracia DO; Dr. Neymar Xavier MD ~ Signed [facility] Other Phone: LDL calc ser/plasOrdered By: Zeferino Dwyer on 09-21-2024 LDL Cholesterol, Calculated 25 mg/dL [facility] Comment on above: Nooxqtlhcj=566-741 m g/dL & Higher Utla=169 mg/dL or greater Laboratory - Chemistry and C hemistry - challengeOrdered By: Zeferino Dwyer on 09-21-2024 AST [Catalytic activity/Vol] 24 U/L <38 [facility] Lactic Acidon 09-21-2024 Lactate [Moles/Vol] 1.6 mmol/L Normal 0.0-2.0 [facility] Comment on above: Order Comment: Y Performed By: #### L 501.4021, L503.6005, L500.4050, L300.4310, M200.1000, L100.0100, L300.3900 #### [facility] [address] [place], [place], [id number] Lactic acid measurementOrder ed By: Zeferino Dwyer on 09-21-2024 Lactate [Moles/Vol] 1.6 mmol/L 0.0-2.0 [facility] Lipid Profileon 09-21-2024 CHOL:HDL 2.18 Normal [facility] Comment on above: Performed By: #### L 501.4021, L503.6005, L500.4050, L300.4310, M200.1000, L100.0100, L300.3900 #### [facility] [address] [place], [place], [id number] Cholesterol [Mass/Vol] 83 mg/dL Normal <=200 [facility] Comment on above: Result Comment: Chol esterol level, Desirable <200 mg/dL Borderline high cholesterol 200-239 mg/dL High cholesterol >=240 mg/dL Recommendations of the NCEP Adult Treatment Panel for the following risk-cutoff thresholds for the [place] population. Performed By: #### L 501.4021, L503.6005, L500.4050, L300.4310, M200.1000, L100.0100, L300.3900 #### [facility] [address] [place], [address] Cholesterol in HDL [Mass/Vol] 38 mg/dL Low [facility] Comment on above: Result Comment: Ofelia onal Cholesterol Education Program (NCEP) guidelines: <40 mg/dL: Low HDL-cholesterol (major risk factor for CHD) >= 60 mg/dL: High HDL-cholesterol (negative risk factor for CHD) HDL-cholesterol is affected by a number of factors, e.g. smoking, exercise, hormones, sex and age. Performed By: #### L 501.4021, L503.6005, L500.4050, L300.4310, M200.1000, L100.0100, L300.3900 #### [facility] [address] [place], [address] Cholesterol in LDL [Mass/Vol] 25 mg/dL Normal [facility] Comment on above: Result Comment: Bord nedavd=504-542 mg/dL Higher Qdlk=248 mg/dL or greater Performed By: #### L 501.4021, L503.6005, L500.4050, L300.4310, M200.1000, L100.0100, L300.3900 #### [facility] [address] [place], [address] Cholesterol in VLDL [Mass/Vol] 20 mg/dL Normal 5-40 [facility] Comment on above: Performed By: #### L 501.4021, L503.6005, L500.4050, L300.4310, M200.1000, L100.0100, L300.3900 #### [facility] [address] [place], [address] Triglyceride [Mass/Vol] 102 mg/dL Normal [facility] Comment on above: Result Comment: The drugs N-Acetylcysteine and Metamizole may falsely depress this assay. Normal range: <150 mg/dL Borderline High: 150-199 mg/dL High: 200-499 mg/dL Very High: >500 mg/dL Performed By: #### L 501.4021, L503.6005, L500.4050, L300.4310, M200.1000, L100.0100, L300.3900 #### [facility] [address] [place], [place], [id number] Manual differential comment Kevin (Bld) [Interp]Ordered By: Zeferino Dwyer on 09-21-2024 Differential Comment SCANNED [facility] Comment on above: LEFT SHIFT: BANDS CO ESENT 2+ PSA, total screeningOrdered By: Zeferino Dwyer on 09-21-2024 Prostate Specific Antigen Screen 4.91 ng/mL High 0.02-4.00 [facility] Comment on above: This test was perfor med using the [employer] tPSA method. Measured values of a patient sample can vary depending on the testing procedure used. PSA values determined on patient samples by different testing procedures cannot be used interchangeably. If there is a change in PSA assays while monitoring therapy, sequential testing should be performed to confirm baseline values. PSA,Total - Annual Screenon 09-21-2024 PSA,TOT SCREEN 4.91 ng/mL High 0.02-4.00 [facility] Comment on above: Result Comment: This test was performed using the [employer] tPSA method. Measured values of a patient??sample can vary depending on the testing procedure used. PSA values determined on patient samples by different testing procedures cannot be used interchangeably. If there is a change in PSA assays while monitoring therapy, sequential testing should be performed to confirm baseline values. Performed By: #### L 501.9910 #### [facility] [address] [place], [place], [id number] Phosphoruson 09-21-2024 Phosphate [Mass/Vol] 2.0 mg/dL Low 2.7-4.5 [facility] Comment on above: Performed By: #### L 501.4021, L503.6005, L500.4050, L300.4310, M200.1000, L100.0100, L300.3900 #### [facility] [address] [place], [place], [id number] Prothrombin Time w/INRon INR Coag (PPP) [Relative time] 2.5 {INR} Normal [facility] Comment on above: Performed By: #### L 501.4021, L503.6005, L500.4050, L300.4310, M200.1000, L100.0100, L300.3900 #### [facility] [address] [place], [address] PT Coag (PPP) [Time] 27.1 s High 11.7-14.9 [facility] Comment on above: Performed By: #### L 501.4021, L503.6005, L500.4050, L300.4310, M200.1000, L100.0100, L300.3900 #### [facility] [address] [place], [address] Screening total cholesterol/ high density lipoprotein (HDL) cholesterol ratioOrdered By: Zeferino Dwyer on 09-21-2024 Cholesterol.total/Chol esterol in HDL [Mass ratio] 2.18 {ratio} [facility] Serum globulin measurementOr dered By: Zeferino Dwyer on 09-21-2024 Globulin (S) [Mass/Vol] 3.2 g/dL 2.2-4.2 [facility] Serum or plasma alanine moreno otransferase (ALT) measurementOrdered By: Zeferino Dwyer on 09-21-2024 ALT [Catalytic activity/Vol] 17 U/L <47 [facility] Serum or plasma albumin camryn urement (mass/volume)Ordered By: Zeferino Dwyer on 09-21-2024 Albumin [Mass/Vol] 3.6 g/dL 3.4-4.8 [facility] Serum or plasma albumin/glob ulin mass ratioOrdered By: Zeferino Dwyer on 09-21-2024 Albumin/Globulin [Mass ratio] 1.1 {ratio} 0.9-2.4 [facility] Serum or plasma alkaline drew sphatase measurementOrdered By: Zeferino Dwyer on 09-21-2024 ALP [Catalytic activity/Vol] 54 U/L 40-129 [facility] Serum or plasma cholesterol in HDL measurement (mass/volume)Ordered By: Zeferino Dwyer on 09-21-2024 Cholesterol in HDL [Mass/Vol] 38 mg/dL Low >40 [facility] Comment on above: National Cholesterol Education Program (NCEP) guidelines:<40 mg/dL: Low HDL-cholesterol (major risk factor for CHD)>= 60 mg/dL: High HDL-cholesterol (negative risk factor for CHD)HDL-cholesterol is affected by a number of factors, e.g. smoking, exercise, hormones, sex and age. Serum or plasma cholesterol measurement (mass/volume)Ordered By: Zeferino Dwyer on 09-21-2024 Cholesterol [Mass/Vol] 83 mg/dL <201 [facility] Comment on above: Cholesterol level, D esirable <200 mg/dLBorderline high cholesterol 200-239 mg/dLHigh cholesterol >=240 mg/dLRecommendations of the NCEP Adult Treatment Panel for the following risk-cutoff thresholds for the [place] population. Total proteinOrdered By: Gerhard Dwyre on 09-21-2024 Protein [Mass/Vol] 6.7 g/dL 5.9-8.4 [facility] Triglycerides measurementOrd ered By: Zeferino Dwyer on 09-21-2024 Triglyceride [Mass/Vol] 102 mg/dL <199 [facility] Comment on above: The drugs N-Acetylcy steine and Metamizole may falsely depress this assay. Normal range: <150 mg/dLBorderline High: 150-199 mg/dLHigh: 200-499 mg/dLVery High: >500 mg/dL Urine Cultureon 09-21-2024 URC Culture exhibits no growth. Normal [facility] Comment on above: Performed By: #### M 100.2200, L400.0001 #### [facility] [address] [facility] [place], [place], [id number] 12 Lead EKGon 09-20-2024 12 Lead EKG [facility] Cardiovascular Services [address] [place] [address] 12 Lead EKG 09/20/24 1742 MR#: [id number] Acct: [id number] Name: HATTIE VALDERRAMA Rep #: [id number] : 1945 79 From: Keon Vega MD Attending Dr: Dr. Marcelino Gracia DO Status: ADM IN Ordering Dr: Stone Leong DO Date: 5 Location: ICU Sex: M C Admitted: 09/20/24 Test Reason : SOB Blood Pressure : */* mmHG Vent. Rate : 108 BPM Atrial Rate : * BPM P-R Int : * ms QRS Dur : 126 ms QT Int : 348 ms P-R-T Axes : * -14 26 degrees QTcB Int : 466 ms Atrial fibrillation with rapid ventricular response Right bundle branch block Abnormal ECG Confirmed by RODGER RUIZ, KEON ([id number]), book or script editor WENDY PACHECO ([id number]) on 09/21/2024 8:30:42 AM Referred By: Confirmed By: KEON VEGA MD 09/21/24 0830 Date Keon Vega MD CC: Dr. Stone Leong DO; Dr. Marcelino Gracia DO; Dr. Neymar Xavier MD Signed Normal [facility] Absolute neutrophil countOrd ered By: Stone Leong on 09-20-2024 Neutrophils (Bld) [#/Vol] 11.7 10*3/uL High 2.0-7.7 [facility] Alcohol, Blood (Medical)-Ser umon 09-20-2024 SERUM ETOH < 10.1 Normal <=10.0 [facility] Comment on above: Result Comment: This test is for medical purposes only. The legal definition of intoxication varies according to local law. Performed By: #### L 501.4021, L503.6005, L500.4050, L300.4310, M200.1000, L100.0100, L300.3900 #### [facility] Laboratory [address] [place] [address]. [place], [place], [id number] Amphetamines Screen method > 1000 ng/mL Ql (U)Ordered By: Zeferino Dwyer on 09-20-2024 Amphetamines Ql (U) Negative <1000 ng/mL [facility] Urine Barbiturates Screen Negative < 200 ng/mL [facility] Anion gap in Serum or Plasma Ordered By: Stone Leong on 09-20-2024 Anion gap [Moles/Vol] 14 mmol/L 5-15 [facility] Arterial patency Wrist arter y --pre arterial punctureOrdered By: Zeferino Dwyer on 09-20-2024 Kristen Test Positive [facility] BUN/creatinine ratioOrdered By: Stone Leong on 09-20-2024 Urea nitrogen/Creatinine [Mass ratio] 34.2 mg/mg High 10-20 [facility] Base excess Calc (BldV) [Mol es/Vol]Ordered By: Zeferino Dwyer on 09-20-2024 Blood Gas Base Excess -4 mmol/L Low -2-2 [facility] Base excess Calc (BldV) [Mol es/Vol]Ordered By: Stone Leong on 09-20-2024 Venous Blood Base Excess -1 mmol/L -1.0-3.5 [facility] Basophil percentageOrdered B y: Stone Leong on 09-20-2024 Basophils/100 WBC (Bld) 0.4 % 0-1 [facility] Bedside Glucoseon 09-20-2024 FINGERSTICK GLU 238 mg/dL High 74-106 [facility] Comment on above: Result Comment: ANDREW ALFONSO OF PATIENT CARE PER NURSING PROTOCOL Performed By: #### L 501.4021, L503.6005, L500.4050, L300.4310, M200.1000, L100.0100, L300.3900 #### [facility] [place], [address] Bilirubin Test strip Ql (U)O rdered By: Stone Leong on 09-20-2024 Bilirubin Ql (U) Negative Negative [facility] Bilirubin, totalOrdered By: Stone Leong on 09-20-2024 Bilirubin [Mass/Vol] 0.79 mg/dL 0.00-1.30 [facility] K[facility] TEST Positive Normal [facility] Comment on above: Performed By: #### L 501.4021, L503.6005, L500.4050, L300.4310, M200.1000, L100.0100, L300.3900 #### [facility] [address] [place], [address] Base excess Calc (Bld) [Moles/Vol] -4 mmol/L Low -2 to +2 [facility] Comment on above: Performed By: #### L 501.4021, L503.6005, L500.4050, L300.4310, M200.1000, L100.0100, L300.3900 #### [facility] [address] [place], [address] Blood Gas Type ART Normal [facility] Comment on above: Performed By: #### L 501.4021, L503.6005, L500.4050, L300.4310, M200.1000, L100.0100, L300.3900 #### [facility] [address] [place], [address] CO2 [Moles/Vol] 22 mmol/L Normal [facility] Comment on above: Performed By: #### L 501.4021, L503.6005, L500.4050, L300.4310, M200.1000, L100.0100, L300.3900 #### [facility] [address] [place], [address] FI02 29.0 Normal [facility] Comment on above: Performed By: #### L 501.4021, L503.6005, L500.4050, L300.4310, M200.1000, L100.0100, L300.3900 #### [facility] [address] [place] [id number] HCO3 (Bld) [Moles/Vol] 20.5 mmol/L Low 22-26 [facility] Comment on above: Performed By: #### L 501.4021, L503.6005, L500.4050, L300.4310, M200.1000, L100.0100, L300.3900 #### [facility] [address] [place], [address] Mode Not entered Normal [facility] Comment on above: Performed By: #### L 501.4021, L503.6005, L500.4050, L300.4310, M200.1000, L100.0100, L300.3900 #### [facility] [address] [place], [address] O2 Delivery Dev HFOV Normal [facility] Comment on above: Performed By: #### L 501.4021, L503.6005, L500.4050, L300.4310, M200.1000, L100.0100, L300.3900 #### [facility] [address] [place], [address] pCO2 32.4 mmHg Low 35-45 [facility] Comment on above: Performed By: #### L 501.4021, L503.6005, L500.4050, L300.4310, M200.1000, L100.0100, L300.3900 #### [facility] [address] [place], [address] pH (Bld) 7.41 [pH] Normal 7.35-7.45 [facility] Comment on above: Performed By: #### L 501.4021, L503.6005, L500.4050, L300.4310, M200.1000, L100.0100, L300.3900 #### [facility] [address] [place], [address] PO2 74 mmHG Low 75-100 [facility] Comment on above: Performed By: #### L 501.4021, L503.6005, L500.4050, L300.4310, M200.1000, L100.0100, L300.3900 #### [facility] [address] [place], [address] SITE L Radial Normal [facility] Comment on above: Performed By: #### L 501.4021, L503.6005, L500.4050, L300.4310, M200.1000, L100.0100, L300.3900 #### [facility] [address] [place], [address] SO2 95 Normal 95-99 [facility] Comment on above: Performed By: #### L 501.4021, L503.6005, L500.4050, L300.4310, M200.1000, L100.0100, L300.3900 #### [facility] [address] [place], [address] Blood bicarbonate measuremen tOrdered By: Zeferino Dwyer on 09-20-2024 Blood Gas Bicarbonate Actual 20.5 mmol/L Low 22-26 [facility] CBC W/Diff, Automatedon - PLT EST A Normal ADEQ [facility] Comment on above: Performed By: #### L 501.4021, L503.6005, L500.4050, L300.4310, M200.1000, L100.0100, L300.3900 #### [facility] [address] [place], [address] CO2 (BldV) [Moles/Vol]Ordere d By: Stone Leong on 09-20-2024 CO2 [Moles/Vol] 26 mmol/L 23-33 [facility] CO2 (BldV) [Partial pressure ]Ordered By: Stone Leong on 09-20-2024 Bed Mix Venous Bld PCO2 at Pat Temp 40.8 mmHg Low 41-51 [facility] Carbon dioxide, total [Moles /volume] in Central venous bloodOrdered By: Stone Leong on 09-20-2024 CO2 [Moles/Vol] 21.5 mmol/L 21.0-32.0 [facility] Chest 1 View (Portable)on Chest 1 View (Portable) [facility] Imaging Services [address] [place] [address] Chest 1 View (Portable) MR#: [id number] Acct: [id number] Name: HATTIE VALDERRAMA Rep #: [id number] : 1945 M 79 From: Tal Deleon i, MD PCP: Care Physician,No Primary Status: PRE ER Study: Chest 1 View (Portable) Date of Exam: 09/20/24 Exam# [id number] Ordering Dr: Stone Leong DO PROCEDURE: CHEST 1 VIEW (PORTABLE) 09/20/2024 REASON FOR EXAM: SOB TECHNIQUE: Frontal view of the chest. COMPARISON: None. FINDINGS: The cardiac silhouette is mildly prominent. There are bilateral pulmonary infiltrates particularly within the right perihilar region. This is worrisome for infectious process. Recommend short-term follow-up until resolution. RAD/Chest 1 View (Portable) IMPRESSION: Bilateral pulmonary infiltrates particularly within the right hilar region. Short-term follow-up is recommended if this persists, CT chest should be performed to rule out underlying mass. No pneumothorax. Reading Location: [id number] CC: Dr. Stone Leong, ; No Primary Care Physician Press Operator Meat: Signed Normal [facility] Chest without Contraston Chest without Contrast [facility] Imaging Services [address] [place] [address] Chest without Contrast MR#: [id number] Acct: [id number] Name: HATTIE VALDERRAMA Rep #: [id number] : 1945 M 79 From: Tal Deleno i, MD PCP: Dr. Neymar Xavier MD Status: ADM IN Study: Chest without Contrast Date of Exam: 09/20/24 Exam# [id number] Ordering Dr: Stone Leong DO PROCEDURE: CHEST WITHOUT CONTRAST 09/20/2024 REASON FOR EXAM: ASSESS FOR POSSIBLE MASS TECHNIQUE: Chest CT without contrast. Coronal and Sagittal reconstruction series were provided. One or more dose reduction techniques were used (e.g., Automated exposure control, adjustment of the mA and/or kV according to patient size, use of iterative reconstruction technique RADIATION DOSE SUMMARY: DLP: 777.4 mGycm COMPARISON: Chest x-ray performed on the same date. FINDINGS: Limited examination due to lack of intravenous contrast. The trachea and central bronchial tree are patent. There is no pleural pericardial effusion. The heart is normal in size. There are calcified density within the spleen and the liver which may be suggestive of prior history of granulomatous disease. Correlate clinically. Nonobstructing right intrarenal calculi is present. Hypodense structures seen within the left kidney measuring up to 2.7 cm, incompletely characterized (best seen on image 123/138). Evaluation of lung parenchyma is limited due to respiratory motion abnormalities. Large infiltrates present within the left lower lobe, highly suggestive of pneumonia. Follow-up until clearing is recommended. Minor infiltrates also present within the medial basal segment of the right lower lobe (best seen on image 172/270), which may also be infectious in nature. Evaluation for hilar mass is limited due to lack of IV contrast. Calcified lymph nodes within the bilateral hilum, ufpo-mljjzil-kkgb-right may suggest history of granulomatous disease. 2.4 cm lytic lesion seen within the right scapula best seen on image 18/138. Differential includes Mets or myeloma. Multilevel degenerative changes present within the thoracic spine. No definite acute fracture or dislocation is seen. Atheromatous calcification is seen within the aorta and its branches. CT/Chest without Contrast IMPRESSION: Limited examination due to lack of IV contrast. Evaluation of hilar mass is limited. Large left lower lobe infiltrates highly worrisome for infectious process. Minor infiltrates seen within the right lower lobe which may also suggest infectious process. No definite right hilar mass is present. Lytic lesion within the right scapula may suggest metastatic disease versus myeloma. Nonobstructing right renal calculi. Short-term follow-up study with IV contrast is suggested. Other findings as above. Reading Location: [id number] CC: Dr. Stone Leong DO; Dr. Neymar Xavier MD Press Operator Meat: Signed Normal [facility] Chloride assayOrdered By: Suhas Leong on 09-20-2024 Chloride [Moles/Vol] 98 mmol/L 98-108 [facility] Comprehensive Metabolic Prof ilon 09-20-2024 Albumin [Mass/Vol] 4.0 g/dL Normal 3.4-4.8 [facility] Comment on above: Performed By: #### L 501.4021, L503.6005, L500.4050, L300.4310, M200.1000, L100.0100, L300.3900 #### [facility] Laboratory [address] [place], [address] Albumin/Globulin [Mass ratio] 1.1 {ratio} Normal 0.9-2.4 [facility] Comment on above: Performed By: #### L 501.4021, L503.6005, L500.4050, L300.4310, M200.1000, L100.0100, L300.3900 #### [facility] [address] [place], [address] ALK PHOS 62 U/L Normal 40-129 [facility] Comment on above: Performed By: #### L 501.4021, L503.6005, L500.4050, L300.4310, M200.1000, L100.0100, L300.3900 #### [facility] [address] [place], [address] ALT [Catalytic activity/Vol] 23 U/L Normal <=46 [facility] Comment on above: Performed By: #### L 501.4021, L503.6005, L500.4050, L300.4310, M200.1000, L100.0100, L300.3900 #### [facility] [address] [place], [address] AST [Catalytic activity/Vol] 36 U/L Normal <=37 [facility] Comment on above: Performed By: #### L 501.4021, L503.6005, L500.4050, L300.4310, M200.1000, L100.0100, L300.3900 #### [facility] [address] [place], [address] Bilirubin [Mass/Vol] 0.79 mg/dL Normal 0.00-1.30 [facility] Comment on above: Performed By: #### L 501.4021, L503.6005, L500.4050, L300.4310, M200.1000, L100.0100, L300.3900 #### [facility] [address] [place], [address] BUN/CRE 34.2 RATIO High 10-20 [facility] Comment on above: Performed By: #### L 501.4021, L503.6005, L500.4050, L300.4310, M200.1000, L100.0100, L300.3900 #### [facility] [address] [place], [address] Calcium [Mass/Vol] 9.7 mg/dL Normal 7.6-11.0 [facility] Comment on above: Performed By: #### L 501.4021, L503.6005, L500.4050, L300.4310, M200.1000, L100.0100, L300.3900 #### [facility] [address] [place], [address] Chloride [Moles/Vol] 98 mmol/L Normal 98-108 [facility] Comment on above: Performed By: #### L 501.4021, L503.6005, L500.4050, L300.4310, M200.1000, L100.0100, L300.3900 #### [facility] [address], [address] CO2 [Moles/Vol] 21.5 mmol/L Normal 21.0-32.0 [facility] Comment on above: Performed By: #### L 501.4021, L503.6005, L500.4050, L300.4310, M200.1000, L100.0100, L300.3900 #### [facility] [address] [place], [address] Creatinine [Mass/Vol] 1.19 mg/dL Normal 0.70-1.20 [facility] Comment on above: Performed By: #### L 501.4021, L503.6005, L500.4050, L300.4310, M200.1000, L100.0100, L300.3900 #### [facility] [address] [place], [address] ECRCL 62.48 ml/min Normal 50-250 [facility] Comment on above: Performed By: #### L 501.4021, L503.6005, L500.4050, L300.4310, M200.1000, L100.0100, L300.3900 #### [facility] [address] [place], [address] GAP 14 Normal 5-15 [facility] Comment on above: Performed By: #### L 501.4021, L503.6005, L500.4050, L300.4310, M200.1000, L100.0100, L300.3900 #### [facility] [address] [place], [address] GFR/1.73 sq M.predicted among non-blacks MDRD (S/P/Bld) [Vol rate/Area] 63 mL/min/{1.73_m2} Normal >60 [facility] Comment on above: Result Comment: mL/m in/1.73m2 CKD-EPI Creatinine Equation (2020) Performed By: #### L 501.4021, L503.6005, L500.4050, L300.4310, M200.1000, L100.0100, L300.3900 #### [facility] [address] [place], [address] Globulin (S) [Mass/Vol] 3.8 g/dL Normal 2.2-4.2 [facility] Comment on above: Performed By: #### L 501.4021, L503.6005, L500.4050, L300.4310, M200.1000, L100.0100, L300.3900 #### [facility] [address] [place], [address] Glucose [Mass/Vol] 248 mg/dL High 70-99 [facility] Comment on above: Performed By: #### L 501.4021, L503.6005, L500.4050, L300.4310, M200.1000, L100.0100, L300.3900 #### [facility] [address] [place], [address] Potassium [Moles/Vol] 4.7 mmol/L Normal 3.3-5.1 [facility] Comment on above: Performed By: #### L 501.4021, L503.6005, L500.4050, L300.4310, M200.1000, L100.0100, L300.3900 #### [facility] [address] [place], [address] Sodium [Moles/Vol] 133 mmol/L Normal 133-145 [facility] Comment on above: Performed By: #### L 501.4021, L503.6005, L500.4050, L300.4310, M200.1000, L100.0100, L300.3900 #### [facility] [address] [place], [address] T PROT 7.7 g/dL Normal 5.9-8.4 [facility] Comment on above: Performed By: #### L 501.4021, L503.6005, L500.4050, L300.4310, M200.1000, L100.0100, L300.3900 #### [facility] [address] [place], [address] Urea nitrogen [Mass/Vol] 41 mg/dL High 4-19 [facility] Comment on above: Performed By: #### L 501.4021, L503.6005, L500.4050, L300.4310, M200.1000, L100.0100, L300.3900 #### [facility] [address] [facility] [place], [address] Determination of fraction of inspired oxygenOrdered By: Zeferino Dwyer on 09-20-2024 Blood Gas Oxygen Percent 29.0 [facility] Emergency Department Summary on 09-20-2024 Emergency Department Summary [facility] Medical Records Department [address] [place] [address] Emergency Department Summary 09/20/24 MR#: [id number] Acct: [id number] Name: HATTIE VALDERRAMA Misty Rep #: [id number] : 1945 79 From: Stone Leong DO PCP: Dr. Neymar Xavier MD Status:ADM IN Location: ICU ICU02-1 HPI History of Present Illness Chief Complaint: Shortness of Breath Narrative Narrative: Chief complaint and HPI: Shortness of breath, body aches, cough. Patient is a very poor historian. 79-year-old male with past medical history of atrial fibrillation on Coumadin, DM, HLD, chronic low back pain presents for evaluation of shortness of breath, cough, body aches. Onset of symptoms this weekend. has similar symptoms. Patient endorses decreased p.o. intake. He denies any chest pain, abdominal pain, nausea, vomiting, diarrhea, dysuria. Review of systems: See HPI Medications: As listed on the chart Allergies: As listed on the chart PFSH: Per chart Vital signs: As listed on the chart. Reviewed. Physical exam: Gen: A O x3 but poor historian, unwell appearing Head: Normocephalic, atraumatic Eyes: No sclera icterus, conjunctiva clear, PERRL, EOMI ENT: Moist mucous membranes Neck: Trachea midline, No JVD CV: Irregular irregular rhythm but tachycardic, no murmurs, no peripheral edema Resp: Lungs diminished bilaterally and coarse with wheezing, dyspneic, tachypneic GI: Abd soft, non-distended, non-tender, no r/r/g Musc: Full ROM, no deformity Skin: Warm, dry Neuro: Alert, oriented, grossly intact, sensation intact Psych: Cooperative, appropriate mood and affect [facility] Medical History Kidney stones Diabetes Atrial fibrillation Hypertension Home Medications ???Medication ???Instructions ???Recorded ???Last Taken ???Type atorvastatin 40 mg tablet 40 mg PO QHS CHOLESTEROL 05/20/22 Unknown History glimepiride 2 mg tablet 2 mg PO DAILY DIABETES 05/20/22 Un known History losartan 50 mg tablet 100 mg PO DAILY BLOOD PRESSURE Unknown History metformin 500 mg tablet 1,000 mg PO BID DIABETES 05/20/22 Unknown History metoprolol succinate 100 mg 100 mg PO DAILY BLOOD PRESSURE AND 05/20/22 Unknown History tablet,extended release 24 hr HEART RATE warfarin 2 mg tablet 4 mg PO SUTUTHSA 05/20/22 Unknown History warfarin 2 mg tablet 6 mg PO QMWF 05/20/22 Unknown Hist ory Allergy/AdvReac Type Severity Reaction Status Date / Time No Known Allergies Allergy Verified 09/20/24 17:36 Surgical History History of hip replacement History of knee replacement Social History Smoking Status: Former smoker EXAM Physical Exam Const Vital Signs: 09/20/24 17:34 09/20/24 17:36 09/20/24 17:57 Temperature 98.3 F 98.3 F Temperature Source Oral Oral Pulse Rate 124 H 124 H 121 H Respiratory Rate 36 H 36 H 36 H Respiratory Effort Respiratory Depth Respiratory Pattern Blood Pressure 140/83 H 140/83 H 139/71 H Blood Pressure Mean 102 102 93 Pulse Ox 92 92 93 Oxygen Delivery Method Room Air Room Air Room Air Fraction of Inspired Oxygen (FIO2) 09/20/24 17:57 09/20/24 18:18 09/20/24 18:36 Temperature Temperature Source Pulse Rate 141 H Respiratory Rate 36 H Respiratory Effort Short of Breath Labored Respiratory Depth Shallow Respiratory Pattern Tachypnea Tachypnea Blood Pressure Blood Pressure Mean Pulse Ox 93 Oxygen Delivery Method Room Air Room Air Fraction of Inspired Oxygen (FIO2) 09/20/24 18:42 09/20/24 19:00 09/20/24 19:05 Temperature 98.9 F 99.6 F H Temperature Source Oral Temporal Pulse Rate 138 H 143 H 137 H Respiratory Rate 24 H 30 H 34 H Respiratory Effort Respiratory Depth Respiratory Pattern Blood Pressure 172/81 H 172/61 H Blood Pressure Mean 111 98 Pulse Ox 93 92 90 Oxygen Delivery Method Room Air Room Air Fraction of Inspired Oxygen (FIO2) 09/20/24 19:15 09/20/24 19:21 09/20/24 19:30 Temperature Temperature Source Pulse Rate 139 H 137 H 133 H Respiratory Rate 34 H 36 H 29 H Respiratory Effort Respiratory Depth Respiratory Pattern Tachypnea Blood Pressure 146/87 H 140/84 H Blood Pressure Mean 102 99 Pulse Ox 97 96 Oxygen Delivery Method Airvo Fraction of Inspired Oxygen (FIO2) 28 09/20/24 19:31 09/20/24 20:00 Temperature 99.3 F H Temperature Source Pulse Rate 123 H 130 H Respiratory Rate 33 H 27 H Respiratory Effort Respiratory Depth Respiratory Pattern Blood Pressure 140/84 H 117/54 L Blood Pressure Mean 102 75 (more content not included)... Normal [facility] Eosinophil percentageOrdered By: Stone Leong on 09-20-2024 Eosinophils/100 WBC (Bld) 0.4 % 0-5 [facility] Epithelial cells.squamous LM Ql (Urine sed)Ordered By: Stone Leong on 09-20-2024 Epithelial cells.squamous LM.HPF (Urine sed) [#/Area] 0 /[HPF] 0-5 [facility] Erythrocyte distribution wid th ratioOrdered By: Stone Leong on 09-20-2024 Erythrocyte distribution width (RBC) [Ratio] 14.4 % 11.6-14.6 [facility] Erythrocyte distribution wid th standard deviationOrdered By: Stone Marin on 09-20-2024 Erythrocyte distribution width (RBC) [Entitic vol] 49.1 fL High 35.1-43.9 [facility] Estimation of creatinine ejsus aranceOrdered By: Stone Leong on 09-20-2024 Estimated Creatinine Clearance Calc 62.48 ml/min 50-250 [facility] Ethanol [Mass/Vol]Ordered By : Zeferino Dwyer on 09-20-2024 Ethyl Alcohol Level < 10.1 mg/dL <10.1 [facility] Comment on above: This test is for med ical purposes only. The legal definition of intoxication varies according to local law. FOLATES,SERUM (FOLIC ACID)on 09-20-2024 FOLATES,SERUM 17.60 ng/mL Normal 4.60-34.80 [facility] Comment on above: Performed By: #### L 501.4021, L503.6005, L500.4050, L300.4310, M200.1000, L100.0100, L300.3900 #### [facility] Laboratory [address] [place], [place], [id number] Folate [Mass/Vol]Ordered By: Zeferino Dwyer on 09-20-2024 Serum Folate 17.60 ng/mL 4.60-34.80 [facility] GFR/1.73 sq M.predicted myada g non-blacks MDRD (S/P/Bld) [Vol rate/Area]Ordered By: Stone Leong on 09-20-2024 Estimated GFR (MDRD) Non-Af Amer 63 >60 [facility] Comment on above: mL/min/1.73m2 CKD-EP I Creatinine Equation (2020) Glucose Ql (U)Ordered By: Suhas Leong on 09-20-2024 Glucose (U) [Mass/Vol] 250 mg/dL High Normal [facility] H AND P Exam - Hospital[place] 09-20-2024 H&P Exam - Hospitalist [facility] Medical Records Department [address] [place] [address] H P Exam - Hospitalist 09/20/241942 MR#: [id number] Acct: [id number] Name: HATTIE VALDERRAMA Rep #: [id number] : 1945 79 From: Zeferino Estrada DO PCP: Dr. Neymar Xavier MD Status:ADM IN Location: ICU ICU02-1 HPI - General General Date of Admission: 09/20/24 Date of Service: 09/20/24 Chief Complaint: SOB, Cough and Body Aches. HPI Narrative HATTIE VALDERRAMA, is a 79 M with a past medical history of essential hypertension; on losartan and metoprolol, history of hyperlipidemia; currently not on treatment, overweight; with BMI of 29.7 this admission, remote history of tobacco abuse (quit 1979), chronic atrial fibrillation; on warfarin, DM-2; of unknown control on metformin and glimepiride, history of renal calculi; most recent (2021 on the Right) and OA; with history of THR and TKR chronic low back pain who presents to [facility] ER complaining of shortness of breath, cough and body aches. Mr. Valderrama is a suboptimal historian at this time so information was gathered from chart, medical staff, computer and his at the bedside. According to the records he began to become ill over the weekend on Friday, September 20, 2024 with a viral upper respiratory illness that progressively worsened with his then becoming sick with a similar viral upper respiratory illness later in the weekend. His reported to the ER provider that he had decreased oral intake and malaise with nonproductive cough and increasingly labored respirations. There is no report of fever, chills, nausea, vomiting, diarrhea, constipation, abdominal pain, dysuria, chest pain, rash or headache. 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 He was then admitted to the ICU for ongoing care under the sepsis protocol for a stay of is expected to extend beyond 2 midnights. [facility] Medical History Kidney stones Diabetes Atrial fibrillation Hypertension Home Medications ???Medication ???Instructions ???Recorded ???Last Taken ???Type atorvastatin 40 mg tablet 40 mg PO QHS CHOLESTEROL 05/20/22 Unknown History glimepiride 2 mg tablet 2 mg PO DAILY DIABETES 05/20/22 Un known History losartan 50 mg tablet 100 mg PO DAILY BLOOD PRESSURE Unknown History metformin 500 mg tablet 1,000 mg PO BID DIABETES 05/20/22 Unknown History metoprolol succinate 100 mg 100 mg PO DAILY BLOOD PRESSURE AND 05/20/22 Unknown History tablet,extended release 24 hr HEART RATE warfarin 2 mg tablet 4 mg PO SUTUTHSA 05/20/22 Unknown History warfarin 2 mg tablet 6 mg PO QMWF 05/20/22 Unknown Hist ory Allergy/AdvReac Type Severity Reaction Status Date / Time No Known Allergies Allergy Verified 09/20/24 17:36 Surgical History History of hip replacement History of knee replacement Social History Smoking Status: Former smoker ROS ROS Narrative Full review of systems was not possible due to patient's metabolic encephalopathy. Vital Signs Vital Signs Vital Signs: 09/20/24 17:34 09/20/24 17:36 09/20/24 17:57 Temperature 98.3 F 98.3 F Temperature Source Oral Oral Pulse Rate 124 H 124 H 121 H Respiratory Rate 36 H 36 H 36 H Respiratory Effort Respiratory Depth Respiratory Pattern Blood Pressure 140/83 H 140/83 H 139/71 H Blood Pressure Mean 102 102 93 Pulse Ox 92 92 93 Oxygen Delivery Method Room Air Room Air Room Air 09/20/24 17:57 09/20/24 18:18 09/20/24 18:42 Temperature 98.9 F Temperature Source Oral Pulse Rate 138 H Respiratory Rate 24 H Respiratory Effort Short of Breath Labored Respiratory Depth Shallow Respiratory Pattern Tachypnea Blood Pressure 172/81 H Blood Pressure (more content not included)... Normal [facility] Hematocrit Auto (Bld) [Volum e fraction]Ordered By: Stone Leong on 09-20-2024 Hematocrit (Bld) [Volume fraction] 38.4 % Low 40-54 [facility] Hemoglobin A1c percentageOrd ered By: Zeferino Dwyer on 09-20-2024 HbA1c (Bld) [Mass fraction] 6.9 % Normal <=5.6 [facility] Comment on above: Performed By: #### L 501.4021, L503.6005, L500.4050, L300.4310, M200.1000, L100.0100, L300.3900 #### [facility] Laboratory [address] [place], [place], [address] Hemoglobin measurementOrdere d By: Stone Leong on 09-20-2024 Hemoglobin (Bld) [Mass/Vol] 13.0 g/dL 13.0-16.5 [facility] Immature granulocytes/100 WB C Auto (Bld)Ordered By: Stone Leong on 09-20-2024 Immature granulocytes/100 WBC (Bld) 0.700 % 0.0-0.9 [facility] Comment on above: IG% - Immature Granu locytes (promyelocytes, myelocytes and metamyelocytes) > 1% indicates that a LEFT SHIFT is Present. Influenza virus A and B and SARS-CoV-2 (COVID-19) and Respiratory syncytial virus RNAOrdered By: Stone Leong on 09-20-2024 SARS-CoV-2 (COVID-19) RNA JEREMI+probe Ql (Unsp spec) Influenzae A Abnormal [facility] International normalized rat io (INR) calculationOrdered By: Stone Leong on 09-20-2024 INR Coag (Bld) [Relative time] 2.8 {INR} [facility] Ketones Test strip Ql (U)Ord ered By: Stone Leong on 09-20-2024 Ketones Ql (U) Negative Negative [facility] L. pneumophila Ag Ql (U)Orde red By: Zeferino Dwyer on 09-20-2024 Legionella Antigen [facility] L499.0042on 09-20-2024 Trop T High Sen 12 ng/L Normal <=22 [facility] Comment on above: Performed By: #### L 501.4021, L503.6005, L500.4050, L300.4310, M200.1000, L100.0100, L300.3900 #### [facility] [address] [place], [address] L501.4021on 09-20-2024 Trop T High Sen 14 ng/L Normal <=22 [facility] Comment on above: Performed By: #### L 501.4021, L503.6005, L500.4050, L300.4310, M200.1000, L100.0100, L300.3900 #### [facility] [address] [place], [address] L503.0106on 09-20-2024 Cobalamin (Vitamin B12) [Mass/Vol] 340 pg/mL Normal 180-914 [facility] Comment on above: Performed By: #### L 501.4021, L503.6005, L500.4050, L300.4310, M200.1000, L100.0100, L300.3900 #### [facility] [address] [place], [address] L503.7505on 09-20-2024 Natriuretic peptide B (Bld) [Mass/Vol] 644 pg/mL Normal <=1800 [facility] Comment on above: Result Comment: Hear t Failure Unlikely: < 300 pg/mL Heart Failure Likely < 50 Years: > 450 pg/mL 50-75 Years: > 900 pg/mL >75 Years: > 1800 pg/mL Performed By: #### L 501.4021, L503.6005, L500.4050, L300.4310, M200.1000, L100.0100, L300.3900 #### [facility] [address] [place], [address] Laboratory - Chemistry and C hemistry - challengeOrdered By: Zeferino Dwyer on 09-20-2024 Natriuretic peptide B (Bld) [Mass/Vol] 644 pg/mL <1800 [facility] Comment on above: Heart Failure Unlike ly: < 300 pg/mLHeart Failure Likely< 50 Years: > 450 pg/mL50-75 Years: > 900 pg/mL>75 Years: > 1800 pg/mL Laboratory - Chemistry and C hemistry - challengeOrdered By: Stone Leong on 09-20-2024 AST [Catalytic activity/Vol] 36 U/L <38 [facility] Lactic Acidon 09-20-2024 Lactate [Moles/Vol] 2.4 mmol/L Invalid Interpretation Code 0.0-2.0 [facility] Comment on above: Order Comment: Comme nts: if result >2, system reflex orders 2nd test @ 4hrsY Result Comment: Crit ical Result(s) Called at:2237 by:MARILIN MELARA TO LEONEL NEVAREZ??Results read back by same. Performed By: #### L 501.4021, L503.6005, L500.4050, L300.4310, M200.1000, L100.0100, L300.3900 #### [facility] [address] [place], [place], [id number] Lactate [Moles/Vol] 1.1 mmol/L Normal 0.0-2.0 [facility] Comment on above: Order Comment: Y Performed By: #### L 501.4021, L503.6005, L500.4050, L300.4310, M200.1000, L100.0100, L300.3900 #### [facility] [address] [facility] [place], [place], [id number] Lactic acid measurementOrder ed By: Stone Leong on 09-20-2024 Lactate [Moles/Vol] 1.1 mmol/L 0.0-2.0 [facility] Legionella Antigen Urineon 0 09-20-2024 LEGU URINE, CLEAN CATCH Legionella Antigen result interpretation: L pneumo Ag Ur Ql Negative Presumptive negative for Legionella pneumophila serogroup 1 antigen in urine, suggesting no recent or current infection. Legionella Ag, Urine Negative (See interpretation below) Normal [facility] Comment on above: Performed By: #### L 501.4021, L503.6005, L500.4050, L300.4310, M200.1000, L100.0100, L300.3900 #### [facility] [address] [facility] [place], [place], [id number] Lymphocytes Auto (Unsp spec) [#/Vol]Ordered By: Stone Leong on 09-20-2024 Lymphocytes (Bld) [#/Vol] 0.66 10*3/uL Low 0.83-4.51 [facility] Lymphocytes/100 WBC Auto (Un sp spec)Ordered By: Stone Leong on 09-20-2024 Lymphocytes/100 WBC (Bld) 4.8 % Low 19-41 [facility] M100.678on 09-20-2024 M100.678 RESULTS CALLED TO tuulRTIN 09/20/24 191 Anna Ortega. REPORT READ BACK BY SAME. Copy of report sent to Infection Control Printer MS#[id number] 09/21/24 1647 ELLA. Pending SARS-CoV-2 (COVID 19) Negative INFLUENZA A A Positive A INFLUENZA B Negative RSV PCR Negative INFLUENZAE A Normal [facility] Comment on above: Performed By: #### L 501.4021, L503.6005, L500.4050, L300.4310, M200.1000, L100.0100, L300.3900 #### [facility] [address] [place], [address] MCV (mean corpuscular volume ) determinationOrdered By: Stone Leong on 09-20-2024 MCV (RBC) [Entitic vol] 93.7 fL 80-94 [facility] Magnesiumon 09-20-2024 Magnesium [Mass/Vol] 1.7 mg/dL Normal 1.5-2.2 [facility] Comment on above: Performed By: #### L 501.4021, L503.6005, L500.4050, L300.4310, M200.1000, L100.0100, L300.3900 #### [facility] [address] [facility] [place], [address] Magnesium (Unsp spec) [Mass/ Vol]Ordered By: Zeferino Dwyer on 09-20-2024 Magnesium [Mass/Vol] 1.7 mg/dL 1.5-2.2 [facility] Mean corpuscular hemoglobin (MCH) determinationOrdered By: Stone Leong on 09-20-2024 MCH (RBC) [Entitic mass] 31.7 pg 27.0-32.0 [facility] Mean corpuscular hemoglobin concentration (MCHC) determinationOrdered By: Stone Leong on 09-20-2024 MCHC (RBC) [Mass/Vol] 33.9 g/dL 32-36 [facility] Mean platelet volume determi nationOrdered By: Stone Leong on 09-20-2024 Platelet mean volume (Bld) [Entitic vol] 11.4 fL 6.2-12.0 [facility] Methadone, urineOrdered By: Zeferino Dwyer on 09-20-2024 Urine Methadone Screen Negative < 300 ng/mL [facility] Microscopic analysis of urin e for red blood cells (RBC)Ordered By: Stone Leong on 09-20-2024 Urine RBC 0-5 SEEN /hpf 0-5 [facility] Monocyte percentageOrdered B y: Stone Leong on 09-20-2024 Monocytes/100 WBC (Bld) 9.6 % 0-10 [facility] Mucus LM Ql (Urine sed)Order ed By: Stone Leong on 09-20-2024 Mucus Ql (Urine sed) 0 SEEN /hpf [facility] Neutrophil percentageOrdered By: Stone Leong on 09-20-2024 Neutrophils/100 WBC (Bld) 84.1 % High 47-70 [facility] Nitrite Test strip Ql (U)Ord ered By: Stone Leong on 09-20-2024 Nitrite Ql (U) Negative Negative [facility] No Panel InformationOrdered By: Zeferino Dwyer on 09-20-2024 Blood Gas Sample Site L Radial [facility] Blood Gas Specimen Type ART [facility] Blood Gas Vent Mode Not entered [facility] Oxygen Delivery Device HFOV [facility] Urine Buprenorphine Qualitative Negative < 200 ng/mL [facility] Urine Oxycodone Screen Negative < 100 ng/mL [facility] No Panel InformationOrdered By: Stone Leong on 09-20-2024 Blood Gas Sample Site Not entered [facility] Blood Gas Specimen Type OSCAR [facility] Oxygen Delivery Device Room Air [facility] Troponin T High Sensitivity 14 ng/L <22 [facility] Nucleated red blood cell per centageOrdered By: Stone Leong on 09-20-2024 Nucleated RBC/100 WBC (Bld) [Ratio] 0 % 0-5 [facility] Oxygen (BldV) [Partial press ure]Ordered By: Stone Leong on 09-20-2024 Venous Blood Partial Pressure O2 33 mmHg 25-40 [facility] Oxygen saturation measuremen tOrdered By: Zeferino Dwyer on 09-20-2024 Blood Gas Oxygen Saturation 95 % 95-99 [facility] Partial Thromboplast Timeon 09-20-2024 aPTT Coag (Bld) [Time] 52.3 s High 24.1-36.2 [facility] Comment on above: Performed By: #### L 501.4021, L503.6005, L500.4050, L300.4310, M200.1000, L100.0100, L300.3900 #### [facility] [address] [place], [place], [id number] Partial pressure of carbon d ioxide measurementOrdered By: Zeferino Dwyer on 09-20-2024 Arterial Blood Partial Pressure CO2 32.4 mmHg Low 35-45 [facility] Partial pressure of oxygen m easurementOrdered By: Zeferino Dwyer on 09-20-2024 Arterial Blood Partial Pressure O2 74 mmHG Low 75-100 [facility] Platelet countOrdered By: Suhas Leong on 09-20-2024 Platelets (Bld) [#/Vol] 209 10*3/uL 150-450 [facility] Platelets LM Ql (Bld)Ordered By: Stone Leong on 09-20-2024 Platelet Estimate A ADEQ [facility] Potassium (Unsp spec) [Mass/ Vol]Ordered By: Stone Leong on 09-20-2024 Potassium [Moles/Vol] 4.7 mmol/L 3.3-5.1 [facility] Protein Test strip Ql (U)Ord ered By: Stone Leong on 09-20-2024 Protein Ql (U) 100 mg/dl High Negative [facility] Prothrombin Time w/INRon INR Coag (PPP) [Relative time] 2.8 {INR} Normal [facility] Comment on above: Performed By: #### L 501.4021, L503.6005, L500.4050, L300.4310, M200.1000, L100.0100, L300.3900 #### [facility] [address] [place], [place], [id number] PT Coag (PPP) [Time] 30.1 s High 11.7-14.9 [facility] Comment on above: Performed By: #### L 501.4021, L503.6005, L500.4050, L300.4310, M200.1000, L100.0100, L300.3900 #### [facility] [place], [address] Prothrombin timeOrdered By: Stone Leong on 09-20-2024 PT Coag (PPP) [Time] 30.1 s High 11.7-14.9 [facility] Quantitative urine opiates m easurementOrdered By: Zeferino Dwyer on 09-20-2024 Opiates Ql (U) Negative < 300 ng/mL [facility] RBC Auto (Bld) [#/Vol]Ordere d By: Stone Leong on 09-20-2024 RBC (Bld) [#/Vol] 4.10 10*6/uL Low 4.6-6.2 [facility] Serum creatinine measurement (mass/volume)Ordered By: Stone Leong on 09-20-2024 Creatinine [Mass/Vol] 1.19 mg/dL 0.70-1.20 [facility] Serum globulin measurementOr dered By: Stone Leong on 09-20-2024 Globulin (S) [Mass/Vol] 3.8 g/dL 2.2-4.2 [facility] Serum glucose measurement (m ass/volume)Ordered By: Stone Leong on 09-20-2024 Glucose [Mass/Vol] 248 mg/dL High 70-99 [facility] Serum or plasma alanine moreno otransferase (ALT) measurementOrdered By: Stone Leong on 09-20-2024 ALT [Catalytic activity/Vol] 23 U/L <47 [facility] Serum or plasma albumin camryn urement (mass/volume)Ordered By: Stone Marin on 09-20-2024 Albumin [Mass/Vol] 4.0 g/dL 3.4-4.8 [facility] Serum or plasma albumin/glob ulin mass ratioOrdered By: Stone Leong on 09-20-2024 Albumin/Globulin [Mass ratio] 1.1 {ratio} 0.9-2.4 [facility] Serum or plasma alkaline drew sphatase measurementOrdered By: Stone Leong on 09-20-2024 ALP [Catalytic activity/Vol] 62 U/L 40-129 [facility] Serum or plasma calcium camryn urement (mass/volume)Ordered By: [facility] on 09-20-2024 Calcium [Mass/Vol] 9.7 mg/dL 7.6-11.0 [facility] Serum or plasma urea nitroge n measurement (mass/volume)Ordered By: Stone [facility] on 09-20-2024 Urea nitrogen [Mass/Vol] 41 mg/dL High 4-19 [facility] Sodium levelOrdered By: [facility]an [facility] on 09-20-2024 Sodium [Moles/Vol] 133 mmol/L 133-145 [facility] Strep pneumoniae Antig(UR,CS F)on 09-20-2024 STPAG URINE INTERPRETATION Strep pneumoniae Antig(UR,CSF) Negative Urine Presumptive negative for pneumococcal pneumonia, suggesting no current or recent pneumococcal infection. Infection due to S pneumoniae cannot be ruled out since the antigen present in the sample may be below the detection limit of the test. Strep pneumo Test Negative URINE (See interpretation below) Normal [facility] Comment on above: Performed By: #### L 501.4021, L503.6005, L500.4050, L300.4310, M200.1000, L100.0100, L300.3900 #### [facility] [address] [place], [address] Streptococcus pneumoniae ant igen assayOrdered By: Zeferino Dwyer on 09-20-2024 Streptococcus pneumoniae Antigen (M [facility] TSH DL <= 0.005 mIU/L QnOrde red By: Zeferino Dwyer on 09-20-2024 Thyroid Stimulating Hormone (TSH) 0.328 uIU/mL 0.300-4.200 [facility] Thyroid Stim Hormone (TSH)on 09-20-2024 TSH 0.328 uIU/mL Normal 0.300-4.200 [facility] Comment on above: Performed By: #### L 501.4021, L503.6005, L500.4050, L300.4310, M200.1000, L100.0100, L300.3900 #### [facility] [address] [place], [address] Total carbon dioxide measure mentOrdered By: Zeferino Dwyer on 09-20-2024 Blood Gas Total CO2 22 mmol/L [facility] Total proteinOrdered By: Lizandro Leong on 09-20-2024 Protein [Mass/Vol] 7.7 g/dL 5.9-8.4 [facility] Troponin T.cardiac High sens itivity method [Mass/Vol]Ordered By: Stone Marin on 09-20-2024 Troponin T High Sensitivity 2 Hour 12 ng/L <22 [facility] Urinalysis, Completeon 09-20 BACTERIA 1+ /hpf Normal None Seen [facility] Comment on above: Order Comment: COLLE CTOR TO SPECIFY Performed By: #### M 100.2200, L400.0001 #### [facility] [address] [place], [address] RBC 0-5 SEEN Normal 0-5 [facility] Comment on above: Order Comment: COLLE CTOR TO SPECIFY Performed By: #### M 100.2200, L400.0001 #### [facility] [address] [place], [address] WBC 0-5 SEEN Normal 0-5 [facility] Comment on above: Order Comment: COLLE CTOR TO SPECIFY Performed By: #### M 100.2200, L400.0001 #### [facility] [address] [place], [address] EPI,SQUAMOUS 0 SEEN Normal 0-5 [facility] Comment on above: Order Comment: COLLE CTOR TO SPECIFY Performed By: #### M 100.2200, L400.0001 #### [facility] [address] [place], [address] Mucus Ql (Urine sed) 0 SEEN Normal [facility] Comment on above: Order Comment: COLLE CTOR TO SPECIFY Performed By: #### M 100.2200, L400.0001 #### [facility] [address] [place], [address] Urine Drug Screen (VISTA)on 09-20-2024 AMPHETAMINES Negative Normal <1000 ng/mL [facility] Comment on above: Performed By: #### L 501.4021, L503.6005, L500.4050, L300.4310, M200.1000, L100.0100, L300.3900 #### [facility] [address] [place], [address] BARBITIURATES Negative Normal < 200 ng/mL [facility] Comment on above: Performed By: #### L 501.4021, L503.6005, L500.4050, L300.4310, M200.1000, L100.0100, L300.3900 #### [facility] [address] [place], [address] BENZODIAZIPINE Negative Normal < 200 ng/mL [facility] Comment on above: Performed By: #### L 501.4021, L503.6005, L500.4050, L300.4310, M200.1000, L100.0100, L300.3900 #### [facility] [address] [place], [address] BUP Ur Drug Scr Negative Normal < 200 ng/mL [facility] Comment on above: Performed By: #### L 501.4021, L503.6005, L500.4050, L300.4310, M200.1000, L100.0100, L300.3900 #### [facility] [address] [place], [address] COCAINE Negative Normal < 300 ng/mL [facility] Comment on above: Performed By: #### L 501.4021, L503.6005, L500.4050, L300.4310, M200.1000, L100.0100, L300.3900 #### [facility] [address] [place], [address] Fentanyl Negative Normal [facility] Comment on above: Performed By: #### L 501.4021, L503.6005, L500.4050, L300.4310, M200.1000, L100.0100, L300.3900 #### [facility] [address] [place], [place], [facility] METHADONE Negative Normal < 300 ng/mL [facility] Comment on above: Performed By: #### L 501.4021, L503.6005, L500.4050, L300.4310, M200.1000, L100.0100, L300.3900 #### [facility] [address] [place], [place], [facility] [facility] OPIATES Negative Normal < 300 ng/mL [facility] Comment on above: Performed By: #### L 501.4021, L503.6005, L500.4050, L300.4310, M200.1000, L100.0100, L300.3900 #### [facility] [address] [place], [place], [facility] OXYCODONE Negative Normal < 100 ng/mL [facility] Comment on above: Performed By: #### L 501.4021, L503.6005, L500.4050, L300.4310, M200.1000, L100.0100, L300.3900 #### [facility] [address] [place], [place], [facility] PCP Negative Normal < 25 ng/mL [facility] Comment on above: Performed By: #### L 501.4021, L503.6005, L500.4050, L300.4310, M200.1000, L100.0100, L300.3900 #### [facility] [address], [address] THC Negative Normal < 50 ng/mL [facility] Comment on above: Performed By: #### L 501.4021, L503.6005, L500.4050, L300.4310, M200.1000, L100.0100, L300.3900 #### [facility] [address] [place], [address] Urine benzodiazepine levelOr dered By: Zeferino Dwyer on 09-20-2024 Benzodiazepines Ql (U) Negative < 200 ng/mL [facility] Urine blood detectionOrdered By: Stone Leong on 09-20-2024 Urine Occult Blood 150 /ul High Negative [facility] Urine clarityOrdered By: Lizandro Leong on 09-20-2024 Clarity (U) Clear Clear [facility] Urine cocaine levelOrdered B y: Zeferino Dwyer on 09-20-2024 Cocaine Ql (U) Negative < 300 ng/mL [facility] Urine color determinationOrd ered By: Stone Leong on 09-20-2024 Color (U) Yellow Yellow [facility] Urine [id number] abinol (THC) measurementOrdered By: Zeferino Dwyer on 09-20-2024 Cannabinoids Screen Ql (U) Negative < 50 ng/mL [facility] Urine leukocyte esterase det ection by dipstickOrdered By: Stone Leong on 09-20-2024 Leukocyte esterase Test strip Ql (U) Negative Negative [facility] Urine pHOrdered By: Stone Siu on 09-20-2024 pH (U) 6.0 [pH] 5.0 - 8.0 [facility] Urine phencyclidine (PCP) de tectionOrdered By: Zeferino Dwyer on 09-20-2024 Phencyclidine Ql (U) Negative < 25 ng/mL [facility] Urine sediment bacteria coun t by microscopy (number/high power field)Ordered By: Stone Leong on 09-20-2024 Bacteria LM.HPF (Urine sed) [#/Area] 1 /[HPF] None Seen [facility] Urine specific gravity measu rementOrdered By: Stone Leong on 09-20-2024 Specific gravity (U) [Rel density] 1.020 1.002-1.030 [facility] Urobilinogen Ql (U)Ordered B y: Stone Leong on 09-20-2024 Urine Urobilinogen Normal mg/dl Normal [facility] Venous Blood Gason Blood Gas Type OSCAR Normal [facility] Comment on above: Performed By: #### L 501.4021, L503.6005, L500.4050, L300.4310, M200.1000, L100.0100, L300.3900 #### [facility] [address] [place], [address] CO2 [Moles/Vol] 26 mmol/L Normal 23-33 [facility] Comment on above: Performed By: #### L 501.4021, L503.6005, L500.4050, L300.4310, M200.1000, L100.0100, L300.3900 #### [facility] [address] [place], [address] HCO3 (Bld) [Moles/Vol] 25 mmol/L Normal 22-26 [facility] Comment on above: Performed By: #### L 501.4021, L503.6005, L500.4050, L300.4310, M200.1000, L100.0100, L300.3900 #### [facility] [address] [place], [address] O2 Delivery Dev Room Air Normal [facility] Comment on above: Performed By: #### L 501.4021, L503.6005, L500.4050, L300.4310, M200.1000, L100.0100, L300.3900 #### [facility] [address] [place], [address] SITE Not entered Normal [facility] Comment on above: Performed By: #### L 501.4021, L503.6005, L500.4050, L300.4310, M200.1000, L100.0100, L300.3900 #### [facility] [address] [place], [address] VBG BE -1 mmol/L Normal -1.0-3.5 [facility] Comment on above: Performed By: #### L 501.4021, L503.6005, L500.4050, L300.4310, M200.1000, L100.0100, L300.3900 #### [facility] [address] [place], [address] VBG pCO2 40.8 mmHg Low 41-51 [facility] Comment on above: Performed By: #### L 501.4021, L503.6005, L500.4050, L300.4310, M200.1000, L100.0100, L300.3900 #### [facility] [address] [place], [address] VBG pH 7.39 Normal 7.32-7.42 [facility] Comment on above: Performed By: #### L 501.4021, L503.6005, L500.4050, L300.4310, M200.1000, L100.0100, L300.3900 #### [facility] [address] [place], [address] VBG PO2 33 mmHg Normal 25-40 [facility] Comment on above: Performed By: #### L 501.4021, L503.6005, L500.4050, L300.4310, M200.1000, L100.0100, L300.3900 #### [facility] [address] [place], [address] VBG SO2 62 Normal 50-70 [facility] Comment on above: Performed By: #### L 501.4021, L503.6005, L500.4050, L300.4310, M200.1000, L100.0100, L300.3900 #### [facility] [address] [place], [address] Venous blood bicarbonate óscar surementOrdered By: Stone Leong on 09-20-2024 HCO3 (Bld) [Moles/Vol] 25 mmol/L 22-26 [facility] Venous blood oxygen saturati on measurementOrdered By: Stone Leong on 09-20-2024 Oxygen saturation in Blood 62 % 50-70 [facility] Vitamin B12 ser/plasOrdered By: Zeferino Dwyer on 09-20-2024 Cobalamin (Vitamin B12) [Mass/Vol] 340 pg/mL 180-914 [facility] White blood cell (WBC) count Ordered By: Stone Leong on 09-20-2024 WBC (Bld) [#/Vol] 13.8 10*3/uL High 4.4-11.0 [facility] White blood cell countOrdere d By: Stone Leong on 09-20-2024 Urine WBC 0-5 SEEN /hpf 0-5 [facility] aPTT Coag (PPP) [Time]Ordere d By: Stone Leong on 09-20-2024 aPTT Coag (Bld) [Time] 52.3 s High 24.1-36.2 [facility] fentaNYL Screen Ql (U)Ordere d By: Zeferino Dwyer on 09-20-2024 Urine Fentanyl Screen Negative [facility] pH (BldV)Ordered By: Stone Moreno on 09-20-2024 Venous Blood pH 7.39 7.32-7.42 [facility] pH (Unsp spec)Ordered By: Kuldeep Dwyer on 09-20-2024 Blood Gas pH 7.41 7.35-7.45 [facility] Comprehensive metabolic 2000 panelon 07-04-2024 Albumin BCP dye [Mass/Vol] 4.3 g/dL Normal 3.4-5.0 [facility] Comment on above: Performed By: #### 4 548-4 #### JENNIFER TAY ([id number]) [facility] ([facility]) [facility] [place] [address] ALP [Catalytic activity/Vol] 49 U/L Normal 33-136 [facility] Comment on above: Performed By: #### 4 548-4 #### JENNIFER TAY ([id number]) [facility] ([facility]) [address] [place] [address] ALT With P-5'-P [Catalytic activity/Vol] 17 U/L Normal 10-52 [facility] Comment on above: Result Comment: Arlette ents treated with Sulfasalazine may generate falsely decreased results for ALT. Performed By: #### 4 548-4 #### JENNIFER TAY ([id number]) [facility] ([facility]) [address] [place] [address] Anion gap [Moles/Vol] 11 mmol/L Normal 10-20 [facility] Comment on above: Performed By: #### 4 548-4 #### JENNIFER TAY ([id number]) [facility] ([facility]) [address] [place] [address] 68444 AST With P-5'-P [Catalytic activity/Vol] 16 U/L Normal 9-39 [facility] Comment on above: Performed By: #### 4 548-4 #### JENNIFER TAY ([id number]) [facility] ([facility]) [facility] [place] [address] Bilirubin [Mass/Vol] 0.8 mg/dL Normal 0.0-1.2 [facility] Comment on above: Performed By: #### 4 548-4 #### JENNIFER TAY ([id number]) [facility] ([facility]) [address] [place] [address] Calcium [Mass/Vol] 9.3 mg/dL Normal 8.6-10.3 [facility] Comment on above: Performed By: #### 4 548-4 #### JENNIFER TAY ([id number]) [facility] ([facility]) [address] [place] [address] 10469 Chloride [Moles/Vol] 103 mmol/L Normal 98-107 [facility] Comment on above: Performed By: #### 4 548-4 #### JENNIFER TAY ([id number]) [facility] ([facility]) [address] [place] [address] 56753 CO2 [Moles/Vol] 30 mmol/L Normal 21-32 [facility] Comment on above: Performed By: #### 4 548-4 #### JENNIFER TAY ([id number]) [facility] ([facility]) [address] [place] [address]32 Creatinine [Mass/Vol] 0.88 mg/dL Normal 0.50-1.30 [facility] Comment on above: Performed By: #### 4 548-4 #### JENNIFER TAY ([id number]) [facility] ([facility]) [address] [place] [address] 56517 Glomerular filtration rate/1.73 sq M.predicted 88 mL/min/1.73m*2 Normal >60 [facility] Comment on above: Result Comment: Calc ulations of estimated GFR are performed using the 2020 CKD-EPI Study Refit equation without the race variable for the IDMS-Traceable creatinine methods. https://jasn.asnjournals.org/content/early//ASN.36288 10127 Performed By: #### 4 548-4 #### JENNIFER TAY ([id number]) [facility] ([facility]) [address] [place] [address] 71899 Glucose [Mass/Vol] 135 mg/dL High 74-99 [facility] Comment on above: Performed By: #### 4 548-4 #### JENNIFER TAY ([id number]) [facility] ([facility]) [address] [place] [address] Potassium [Moles/Vol] 4.6 mmol/L Normal 3.5-5.3 [facility] Comment on above: Performed By: #### 4 548-4 #### JENNIFER TAY ([id number]) [facility] ([facility]) [address] [place] [address] 73279 Protein [Mass/Vol] 6.9 g/dL Normal 6.4-8.2 [facility] Comment on above: Performed By: #### 4 548-4 #### JENNIFER TAY ([id number]) [facility] ([facility]) [address] [place] [address] 00872 Sodium [Moles/Vol] 139 mmol/L Normal 136-145 [facility] Comment on above: Performed By: #### 4 548-4 #### JENNIFER TAY ([id number]) [facility] ([facility]) [address] [place] [address] 24694 Urea nitrogen [Mass/Vol] 18 mg/dL Normal 6-23 [facility] Comment on above: Performed By: #### 4 548-4 #### JENNIFER TAY ([id number]) [facility] ([facility]) [address] [place] [address] 19368 HbA1c (Bld) [Mass fraction]o n 07-04-2024 Average glucose Estimated from glycated hemoglobin (Bld) [Mass/Vol] 148 mg/dL Normal Not Established [facility] Comment on above: Order Comment: Diagn osis of Diabetes-Adults Non-Diabetic: < or = 5.6% Increased risk for developing diabetes: 5.7-6.4% Diagnostic of diabetes: > or = 6.5% Monitoring of Diabetes Age (y)....................... Therapeutic Goal (%) Adults: >18.........................<7.0 Pediatrics: 13-18...................<7.5 Pediatrics: 7-12....................<8.0 Pediatrics: 0-6..................... 7.5-8.5 [employer]. Diabetes Care 33(S1), Jun 2009 Performed By: #### 4 548-4 #### JENNIFER TAY ([id number]) [facility] ([facility]) [facility] [place] [id number] Hemoglobin A1c/Hemoglobin.to dagoberto 07-04-2024 HbA1c (Bld) [Mass fraction] 6.8 % High See comment [facility] Comment on above: Order Comment: Diagn osis of Diabetes-Adults Non-Diabetic: < or = 5.6% Increased risk for developing diabetes: 5.7-6.4% Diagnostic of diabetes: > or = 6.5% Monitoring of Diabetes Age (y)....................... Therapeutic Goal (%) Adults: >18.........................<7.0 Pediatrics: 13-18...................<7.5 Pediatrics: 7-12....................<8.0 Pediatrics: 0-6..................... 7.5-8.5 [employer]. Diabetes Care 33(S1), Jun 2009 Performed By: #### 4 548-4 #### JENNIFER TAY ([id number]) [facility] ([facility]) [facility] [place] [address] CBC W Auto Differential pane l (Bld)on 02-25-2024 Basophils (Bld) [#/Vol] 0.04 x10*3/uL Normal 0.00-0.10 [facility] Comment on above: Performed By: #### 4 548-4 #### JENNIFER TAY ([id number]) [facility] ([facility]) [address] [place] [address] 73924 Basophils/100 WBC (Bld) 0.5 % Normal 0.0-2.0 [facility] Comment on above: Performed By: #### 4 548-4 #### JENNIFER TAY ([id number]) [facility] ([facility]) [address] [place] [address]5970 Eosinophils (Bld) [#/Vol] 0.07 x10*3/uL Normal 0.00-0.40 [facility] Comment on above: Performed By: #### 4 548-4 #### JENNIFER TAY ([id number]) [facility] ([facility]) [address] [place] [address] 93652 Eosinophils/100 WBC (Bld) 0.9 % Normal 0.0-6.0 [facility] Comment on above: Performed By: #### 4 548-4 #### JENNIFER TAY ([id number]) [facility] ([facility]) [address] [place] [address] 14350 Erythrocyte distribution width (RBC) [Ratio] 13.8 % Normal 11.5-14.5 [facility] Comment on above: Performed By: #### 4 548-4 #### JENNIFER TAY ([id number]) [facility] ([facility]) [address] [place] [address] 69419 Hematocrit (Bld) [Volume fraction] 42.7 % Normal 41.0-52.0 [facility] Comment on above: Performed By: #### 4 548-4 #### JENNIFER TAY ([id number]) [facility] ([facility]) [address] [place] [address] 85319 Hemoglobin (Bld) [Mass/Vol] 13.5 g/dL Normal 13.5-17.5 [facility] Comment on above: Performed By: #### 4 548-4 #### JENNIFER TAY ([id number]) [facility] ([facility]) [address] [place] [address] 00336 Immature granulocytes (Bld) [#/Vol] 0.02 x10*3/uL Normal 0.00-0.50 [facility] Comment on above: Performed By: #### 4 548-4 #### JENNIFER TAY ([id number]) [facility] ([facility]) [address] [place] [address] 96371 Immature granulocytes/100 WBC (Bld) 0.2 % Normal 0.0-0.9 [facility] Comment on above: Result Comment: Christy ture Granulocyte Count (IG) includes promyelocytes, myelocytes and metamyelocytes but does not include bands. Percent differential counts (%) should be interpreted in the context of the absolute cell counts (cells/UL). Performed By: #### 4 548-4 #### JENNIFER TAY ([id number]) [facility] ([facility]) [address] [place], [place] [id number] Lymphocytes (Bld) [#/Vol] 1.58 x10*3/uL Normal 0.80-3.00 [facility] Comment on above: Performed By: #### 4 548-4 #### JENNIFER TAY ([id number]) [facility] ([facility]) [address] [place] [address] 57717 Lymphocytes/100 WBC (Bld) 19.5 % Normal 13.0-44.0 [facility] Comment on above: Performed By: #### 4 548-4 #### JENNIFER TAY ([id number]) [facility] ([facility]) [address] [place] [address] 78195 MCH (RBC) [Entitic mass] 30.5 pg Normal 26.0-34.0 [facility] Comment on above: Performed By: #### 4 548-4 #### JENNIFER TAY ([id number]) [facility] ([facility]) [address] [place] [address] 77162 MCHC (RBC) [Mass/Vol] 31.6 g/dL Low 32.0-36.0 [facility] Comment on above: Performed By: #### 4 548-4 #### JENNIFER TAY ([id number]) [facility] ([facility]) [address] [place] [address] 76564 MCV (RBC) [Entitic vol] 97 fL Normal 80-100 [facility] Comment on above: Performed By: #### 4 548-4 #### JENNIFER TAY ([id number]) [facility] ([facility]) [address] [place] [address] 31169 Monocytes (Bld) [#/Vol] 0.57 x10*3/uL Normal 0.05-0.80 [facility] Comment on above: Performed By: #### 4 548-4 #### JENNIFER TAY ([id number]) [facility] ([facility]) [address] [place] [address] 16552 Monocytes/100 WBC (Bld) 7.0 % Normal 2.0-10.0 [facility] Comment on above: Performed By: #### 4 548-4 #### JENNIFER TAY ([id number]) [facility] ([facility]) [address] [place] [address] 37064 Neutrophils (Bld) [#/Vol] 5.81 x10*3/uL High 1.60-5.50 [facility] Comment on above: Result Comment: Perc ent differential counts (%) should be interpreted in the context of the absolute cell counts (cells/uL). Performed By: #### 4 548-4 #### JENNIFER TAY ([id number]) [facility] ([facility]) [address] [place] [address] 02014 Neutrophils/100 WBC (Bld) 71.9 % Normal 40.0-80.0 [facility] Comment on above: Performed By: #### 4 548-4 #### JENNIFER TAY ([id number]) [facility] ([facility]) [address] [place] [address] 11829 Nucleated RBC/100 WBC (Bld) [Ratio] 0.0 /100 WBCs Normal 0.0-0.0 [facility] Comment on above: Performed By: #### 4 548-4 #### JENNIFER TAY ([id number]) [facility] ([facility]) [address] [place] [address] 14766 Platelets (Bld) [#/Vol] 288 x10*3/uL Normal 150-450 [facility] Comment on above: Performed By: #### 4 548-4 #### JENNIFER TAY ([id number]) [facility] ([facility]) [address] [place] [address] RBC (Bld) [#/Vol] 4.42 x10*6/uL Low 4.50-5.90 [facility] Comment on above: Performed By: #### 4 548-4 #### JENNIFER TAY ([id number]) [facility] ([facility]) [address] [place] [address] WBC (Bld) [#/Vol] 8.1 x10*3/uL Normal 4.4-11.3 [facility] Comment on above: Performed By: #### 4 548-4 #### JENNIFER TAY ([id number]) [facility] ([facility]) [address] [place] [address] Coagulation tissue factor in ducedon 02-25-2024 PT Coag (PPP) [Time] 26.8 s High 9.8-12.8 [facility] Comment on above: Performed By: #### 4 548-4 #### JENNIFER TAY ([id number]) [facility] ([facility]) [address] [place] [address] Comprehensive metabolic 2000 panelon 02-25-2024 Albumin BCP dye [Mass/Vol] 4.5 g/dL Normal 3.4-5.0 [facility] Comment on above: Performed By: #### 4 548-4 #### JENNIFER TAY ([id number]) [facility] ([facility]) [address] [place] [address] ALP [Catalytic activity/Vol] 59 U/L Normal 33-136 [facility] Comment on above: Performed By: #### 4 548-4 #### JENNIFER TAY ([id number]) [facility] ([facility]) [address] [place] [address] ALT With P-5'-P [Catalytic activity/Vol] 20 U/L Normal 10-52 [facility] Comment on above: Result Comment: Arlette ents treated with Sulfasalazine may generate falsely decreased results for ALT. Performed By: #### 4 548-4 #### JENNIFER TAY ([id number]) [facility] ([facility]) [address] [place] [address] Anion gap [Moles/Vol] 12 mmol/L Normal 10-20 [facility] Comment on above: Performed By: #### 4 548-4 #### JENNIFER TAY ([id number]) [facility] ([facility]) [address] [place] [address] 14821 AST With P-5'-P [Catalytic activity/Vol] 18 U/L Normal 9-39 [facility] Comment on above: Performed By: #### 4 548-4 #### JENNIFER TAY ([id number]) [facility] ([facility]) [address] [place] [address] 77893 Bilirubin [Mass/Vol] 1.2 mg/dL Normal 0.0-1.2 [facility] Comment on above: Performed By: #### 4 548-4 #### JENNIFER TAY ([id number]) [facility] ([facility]) [address] [place] [address] Calcium [Mass/Vol] 9.6 mg/dL Normal 8.6-10.3 [facility] Comment on above: Performed By: #### 4 548-4 #### JENNIFER TAY ([id number]) [facility] ([facility]) [facility] [place] [address] Chloride [Moles/Vol] 103 mmol/L Normal 98-107 [facility] Comment on above: Performed By: #### 4 548-4 #### JENNIFER TAY ([id number]) [facility] ([facility]) [address] [place] [address] 71870 CO2 [Moles/Vol] 28 mmol/L Normal 21-32 [facility] Comment on above: Performed By: #### 4 548-4 #### JENNIFER TAY ([id number]) [facility] ([facility]) [address] [place] [address] 08277 Creatinine [Mass/Vol] 0.96 mg/dL Normal 0.50-1.30 [facility] Comment on above: Performed By: #### 4 548-4 #### JENNIFER TAY ([id number]) [facility] ([facility]) [address] [place] [address] 62805 Glomerular filtration rate/1.73 sq M.predicted 81 mL/min/1.73m*2 Normal >60 [facility] Comment on above: Result Comment: Calc ulations of estimated GFR are performed using the 2020 CKD-EPI Study Refit equation without the race variable for the IDMS-Traceable creatinine methods. https://jasn.asnjournals.org/content/early//ASN.20938 51251 Performed By: #### 4 548-4 #### JENNIFER TAY ([id number]) [facility] ([facility]) [address] [place] [address] 95407 Glucose [Mass/Vol] 139 mg/dL High 74-99 [facility] Comment on above: Performed By: #### 4 548-4 #### JENNIFER TAY ([id number]) [facility] ([facility]) [address] [place] [address] 54909 Potassium [Moles/Vol] 4.6 mmol/L Normal 3.5-5.3 [facility] Comment on above: Performed By: #### 4 548-4 #### JENNIFER TAY ([id number]) [facility] ([facility]) [address] [place] [id number] Protein [Mass/Vol] 7.3 g/dL Normal 6.4-8.2 [facility] [place] Comment on above: Performed By: #### 4 548-4 #### JENNIFER TAY ([id number]) [facility] ([facility]) [address] [place] [address] 13398 Sodium [Moles/Vol] 138 mmol/L Normal 136-145 [facility] [place] Comment on above: Performed By: #### 4 548-4 #### JENNIFER TAY ([id number]) [facility] ([facility]) [address] [place] [address] Urea nitrogen [Mass/Vol] 15 mg/dL Normal 6-23 [facility] Comment on above: Performed By: #### 4 548-4 #### JENNIFER TAY ([id number]) [facility] ([facility]) [address] [place] [place] [id number] ECG 12 Leadon 02-25-2024 AFIB with rapid ventricular response. RBBB [facility] Work Phone: [facility] Work Phone: HbA1c (Bld) [Mass fraction]o n 02-25-2024 Average glucose Estimated from glycated hemoglobin (Bld) [Mass/Vol] 154 mg/dL Normal Not Established [facility] Comment on above: Order Comment: Diagn osis of Diabetes-Adults Non-Diabetic: < or = 5.6% Increased risk for developing diabetes: 5.7-6.4% Diagnostic of diabetes: > or = 6.5% Monitoring of Diabetes Age (y)....................... Therapeutic Goal (%) Adults: >18.........................<7.0 Pediatrics: 13-18...................<7.5 Pediatrics: 7-12....................<8.0 Pediatrics: 0-6..................... 7.5-8.5 [employer]. Diabetes Care 33(S1), Jun 2009 Performed By: #### 4 548-4 #### JENNIFER TAY ([id number]) [facility] ([facility]) [address] [place] [id number] Hemoglobin A1c/Hemoglobin.to dagoberto 02-25-2024 HbA1c (Bld) [Mass fraction] 7.0 % High see below [facility] Comment on above: Order Comment: Diagn osis of Diabetes-Adults Non-Diabetic: < or = 5.6% Increased risk for developing diabetes: 5.7-6.4% Diagnostic of diabetes: > or = 6.5% Monitoring of Diabetes Age (y)....................... Therapeutic Goal (%) Adults: >18.........................<7.0 Pediatrics: 13-18...................<7.5 Pediatrics: 7-12....................<8.0 Pediatrics: 0-6..................... 7.5-8.5 [employer]. Diabetes Care 33(S1), Jun 2009 Performed By: #### 4 548-4 #### JENNIFER TAY ([id number]) [facility] ([facility]) [address] [place] [address] PT Coag (PPP) [Time]on 02-24 INR Coag (PPP) [Relative time] 2.3 High 0.9-1.1 [facility] Comment on above: Performed By: #### 4 548-4 #### JENNIFER TAY ([id number]) [facility] ([facility]) [address] [place] [address] Comprehensive metabolic 2000 panelon 01-11-2024 Albumin BCP dye [Mass/Vol] 4.4 g/dL Normal 3.4-5.0 [facility] Comment on above: Performed By: #### 4 548-4 #### JENNIFER TAY ([id number]) [facility] ([facility]) [address] [place] [address] ALP [Catalytic activity/Vol] 59 U/L Normal 33-136 [facility] Comment on above: Performed By: #### 4 548-4 #### JENNIFER TAY ([id number]) [facility] ([facility]) [address] [place] [address] ALT With P-5'-P [Catalytic activity/Vol] 19 U/L Normal 10-52 [facility] Comment on above: Result Comment: Arlette ents treated with Sulfasalazine may generate falsely decreased results for ALT. Performed By: #### 4 548-4 #### JENNIFER TAY ([id number]) [facility] ([facility]) [address] [place] [address] Anion gap [Moles/Vol] 12 mmol/L Normal 10-20 [facility] Comment on above: Performed By: #### 4 548-4 #### JENNIFER TAY ([id number]) [facility] ([facility]) [address] [place] [address] 22669 AST With P-5'-P [Catalytic activity/Vol] 17 U/L Normal 9-39 [facility] Comment on above: Performed By: #### 4 548-4 #### JENNIFER TAY ([id number]) [facility] ([facility]) [address] [place] [address] Bilirubin [Mass/Vol] 1.0 mg/dL Normal 0.0-1.2 [facility] Comment on above: Performed By: #### 4 548-4 #### JENNIFER TAY ([id number]) [facility] ([facility]) [address] [place] [address] Calcium [Mass/Vol] 9.4 mg/dL Normal 8.6-10.3 [facility] [place] Comment on above: Performed By: #### 4 548-4 #### JENNIFER TAY ([id number]) [facility] ([facility]) [address] [place] [address] Chloride [Moles/Vol] 104 mmol/L Normal 98-107 [facility] Comment on above: Performed By: #### 4 548-4 #### JENNIFER TAY ([id number]) [facility] ([facility]) [address] [place] [address] CO2 [Moles/Vol] 27 mmol/L Normal 21-32 [facility] Comment on above: Performed By: #### 4 548-4 #### JENNIFER TAY ([id number]) [facility] ([facility]) [address] [place] [address] 85432 Creatinine [Mass/Vol] 0.95 mg/dL Normal 0.50-1.30 [facility] Comment on above: Performed By: #### 4 548-4 #### JENNIFER TAY ([id number]) [facility] ([facility]) [address] [place] [address] 13251 Glomerular filtration rate/1.73 sq M.predicted 82 mL/min/1.73m*2 Normal >60 [facility] Comment on above: Result Comment: Calc ulations of estimated GFR are performed using the 2020 CKD-EPI Study Refit equation without the race variable for the IDMS-Traceable creatinine methods. https://jasn.asnjournals.org/content//ASN.91085 67924 Performed By: #### 4 548-4 #### JENNIFER TAY ([id number]) [facility] ([facility]) [address] [place] [address] 61002 Glucose [Mass/Vol] 120 mg/dL High 74-99 [facility] [place] Comment on above: Performed By: #### 4 548-4 #### JENNIFER TAY ([id number]) [facility] ([facility]) [address] [place] [address] 73052 Potassium [Moles/Vol] 4.5 mmol/L Normal 3.5-5.3 [facility] Comment on above: Performed By: #### 4 548-4 #### JENNIFER TAY ([id number]) [facility] ([facility]) [address] [place] [address] 547[address] Protein [Mass/Vol] 7.1 g/dL Normal 6.4-8.2 [facility] [place] Comment on above: Performed By: #### 4 548-4 #### JENNIFER TAY ([id number]) [facility] ([facility]) [address] [place] [address] 75303 Sodium [Moles/Vol] 138 mmol/L Normal 136-145 [facility] [place] Comment on above: Performed By: #### 4 548-4 #### JENNIFER TAY ([id number]) [facility] ([facility]) [address] [place] [address] 58843 Urea nitrogen [Mass/Vol] 17 mg/dL Normal 6-23 [facility] Comment on above: Performed By: #### 4 548-4 #### JENNIFER TAY ([id number]) [facility] ([facility]) [address] [place] [address] 38453 HbA1c (Bld) [Mass fraction]o n 01-11-2024 Average glucose Estimated from glycated hemoglobin (Bld) [Mass/Vol] 146 mg/dL Normal Not Established [facility] Comment on above: Order Comment: Diagn osis of Diabetes-Adults Non-Diabetic: < or = 5.6% Increased risk for developing diabetes: 5.7-6.4% Diagnostic of diabetes: > or = 6.5% Performed By: #### 4 548-4 #### JENNIFER TAY ([id number]) [facility] ([facility]) [address] [place] [address] 03320 Hemoglobin A1c/Hemoglobin.to dagoberto 01-11-2024 HbA1c (Bld) [Mass fraction] 6.7 % High see below [facility] Comment on above: Order Comment: Diagn osis of Diabetes-Adults Non-Diabetic: < or = 5.6% Increased risk for developing diabetes: 5.7-6.4% Diagnostic of diabetes: > or = 6.5% Performed By: #### 4 548-4 #### JENNIFER TAY ([id number]) [facility] ([facility]) [address] [place] [address] 85881 Lipid 1996 panelon 4 Cholesterol [Mass/Vol] 110 mg/dL Normal 0-199 [facility] Comment on above: Result Comment: Age Desirable Borderline High High 0-19 Y 0 - 169 170 - 199 >/= 200 20-24 Y 0 - 189 190 - 224 >/= 225 >24 Y 0 - 199 200 - 239 >/= 240 All ranges are based on fasting samples. Specific therapeutic targets will vary based on patient-specific cardiac risk. Pediatric guidelines reference:Pediatrics 2011, 128(S5).Adult guidelines reference: NCEP ATPIII Guidelines,GISELLE 2001, 258:2486-97 Venipuncture immediately after or during the administration of Metamizole may lead to falsely low results. Testing should be performed immediately prior to Metamizole dosing. Performed By: #### 4 548-4 #### JENNIFER TAY ([id number]) [facility] ([facility]) [address] [place] [address] 58432 Cholesterol in HDL [Mass/Vol] 42.0 mg/dL Normal [facility] Comment on above: Result Comment: Age Very Low Low Normal High 0-19 Y < 35 < 40 40-45 ---- 20-24 Y ---- < 40 >45 ---- >24 Y ---- < 40 40-60 >60 Performed By: #### 4 548-4 #### JENNIFER TAY ([id number]) [facility] ([facility]) [address] [place] [address] 15186 Cholesterol in LDL [Mass/Vol] 43 mg/dL Normal <=99 [facility] Comment on above: Result Comment: Near Borderline AGE Desirable Optimal High High Very High 0-19 Y 0 - 109 --- 110-129 >/= 130 ---- 20-24 Y 0 - 119 --- 120-159 >/= 160 ---- >24 Y 0 - 99 100-129 130-159 160-189 >/=190 Performed By: #### 4 548-4 #### JENNIFER TAY ([id number]) [facility] ([facility]) [address] [place] [address] 91121 Cholesterol in VLDL [Mass/Vol] 25 mg/dL Normal 0-40 [facility] Comment on above: Performed By: #### 4 548-4 #### JENNIFER TAY ([id number]) [facility] ([facility]) [facility] [place] [address] CHOLESTEROL/HDL RATIO 2.6 Normal [facility] Comment on above: Result Comment: Ref Values Desirable < 3.4 High Risk > 5.0 Performed By: #### 4 548-4 #### JENNIFER TAY ([id number]) [facility] ([facility]) [facility] [place] [address] NON HDL CHOLESTEROL 68 mg/dL Normal 0-149 [facility] Comment on above: Result Comment: Age Desirable Borderline High High Very High 0-19 Y 0 - 119 120 - 144 >/= 145 >/= 160 20-24 Y 0 - 149 150 - 189 >/= 190 ---- >24 Y 30 mg/dL above LDL Cholesterol goal Performed By: #### 4 548-4 #### JENNIFER TAY ([id number]) [facility] ([facility]) [facility] [place] [address] Triglyceride [Mass/Vol] 126 mg/dL Normal 0-149 [facility] Comment on above: Result Comment: Age Desirable Borderline High High Very High 0 D-90 D 19 - 174 ---- ---- ---- 91 D- 9 Y 0 - 74 75 - 99 >/= 100 ---- 10-19 Y 0 - 89 90 - 129 >/= 130 ---- 20-24 Y 0 - 114 115 - 149 >/= 150 ---- >24 Y 0 - 149 150 - 199 200- 499 >/= 500 Venipuncture immediately after or during the administration of Metamizole may lead to falsely low results. Testing should be performed immediately prior to Metamizole dosing. Performed By: #### 4 548-4 #### JENNIFER TAY ([id number]) [facility] ([facility]) [address] [place], [place] [id number] Prostate specific Agon 01-10 Prostate specific Ag [Mass/Vol] 2.38 ng/mL Normal <=4.00 [facility] Comment on above: Order Comment: The F DA requires that the method used for PSA assay be reported to the physician. Values obtained with different assay methods must not be used interchangeably. This test was performed at [facility] using the [employer] PSA assay is a two-site immunoenzymatic sandwich assay. The assay is approved for measurement of prostate-specific antigen (PSA)in serum and may be used in conjunction with a digital rectal examination in men 50 years and older as an aid in detection of prostate cancer. 1-Gysma-eqwmuyfbh inhibitors (e.g. Proscar, Finasteride, Avodart, Dutasteride and Yessy) for the treatment of BPH have been shown to lower PSA levels by an average of 50% after 6 months of treatment. Performed By: #### 2 857-1 #### JENNIFER TAY ([id number]) [facility] ([facility]) [address] [place] [address] 10788 CBC W Auto Differential pane l (Bld)on 09-09-2023 Basophils (Bld) [#/Vol] 0.03 x10*3/uL Normal 0.00-0.10 [facility] Comment on above: Performed By: #### 5 7021-8 #### JENNIFER TAY ([id number]) [facility] ([facility]) [address] [place] [address] 87294 Basophils/100 WBC (Bld) 0.4 % Normal 0.0-2.0 [facility] Comment on above: Performed By: #### 5 7021-8 #### JENNIFER TAY ([id number]) [facility] ([facility]) [address] [place] [address] 55325 Eosinophils (Bld) [#/Vol] 0.14 x10*3/uL Normal 0.00-0.40 [facility] Comment on above: Performed By: #### 5 7021-8 #### JENNIFER TAY ([id number]) [facility] ([facility]) [address] [place] [address] 10404 Eosinophils/100 WBC (Bld) 1.9 % Normal 0.0-6.0 [facility] Comment on above: Performed By: #### 5 7021-8 #### JENNIFER TAY ([id number]) [facility] ([facility]) [address] [place] [address] 56032 Erythrocyte distribution width (RBC) [Ratio] 13.2 % Normal 11.5-14.5 [facility] Comment on above: Performed By: #### 5 7021-8 #### JENNIFER TAY ([id number]) [facility] ([facility]) [address] [place] [address] 44940 Hematocrit (Bld) [Volume fraction] 41.8 % Normal 41.0-52.0 [facility] Comment on above: Performed By: #### 5 7021-8 #### JENNIFER TAY ([id number]) [facility] ([facility]) [address] [place] [address] 50543 Hemoglobin (Bld) [Mass/Vol] 14.0 g/dL Normal 13.5-17.5 [facility] Comment on above: Performed By: #### 5 7021-8 #### JENNIFER TAY ([id number]) [facility] ([facility]) [address] [place] [address] 55713 Immature granulocytes (Bld) [#/Vol] 0.02 x10*3/uL Normal 0.00-0.50 [facility] Comment on above: Performed By: #### 5 7021-8 #### JENNIFER TAY ([id number]) [facility] ([facility]) [address] [place] [address] 12982 Immature granulocytes/100 WBC (Bld) 0.3 % Normal 0.0-0.9 [facility] Comment on above: Result Comment: Crhisty ture Granulocyte Count (IG) includes promyelocytes, myelocytes and metamyelocytes but does not include bands. Percent differential counts (%) should be interpreted in the context of the absolute cell counts (cells/UL). Performed By: #### 5 7021-8 #### JENNIFER TAY ([id number]) [facility] ([facility]) [address] [place] [address] 09535 Lymphocytes (Bld) [#/Vol] 1.89 x10*3/uL Normal 0.80-3.00 [facility] Comment on above: Performed By: #### 5 7021-8 #### JENNIFER TAY ([id number]) [facility] ([facility]) [address] [place] [address] 12254 Lymphocytes/100 WBC (Bld) 25.9 % Normal 13.0-44.0 [facility] Comment on above: Performed By: #### 5 7021-8 #### JENNIFER TAY ([id number]) [facility] ([facility]) [address] [place] [address] 16158 MCH (RBC) [Entitic mass] 31.4 pg Normal 26.0-34.0 [facility] Comment on above: Performed By: #### 5 7021-8 #### JENNIFER TAY ([id number]) [facility] ([facility]) [address] [place] [address] 01122 MCHC (RBC) [Mass/Vol] 33.5 g/dL Normal 32.0-36.0 [facility] Comment on above: Performed By: #### 5 7021-8 #### JENNIFER TAY ([id number]) [facility] ([facility]) [address] [place] [address] 46793 MCV (RBC) [Entitic vol] 94 fL Normal 80-100 [facility] Comment on above: Performed By: #### 5 7021-8 #### JENNIFER TAY ([id number]) [facility] ([facility]) [address] [place] [address] 95980 Monocytes (Bld) [#/Vol] 0.60 x10*3/uL Normal 0.05-0.80 [facility] Comment on above: Performed By: #### 5 7021-8 #### JENNIFER TAY ([id number]) [facility] ([facility]) [address] [place] [address] 12151 Monocytes/100 WBC (Bld) 8.2 % Normal 2.0-10.0 [facility] Comment on above: Performed By: #### 5 7021-8 #### JENNIFER TAY ([id number]) [facility] ([facility]) [address] [place] [address] 16936 Neutrophils (Bld) [#/Vol] 4.63 x10*3/uL Normal 1.60-5.50 [facility] Comment on above: Result Comment: Perc ent differential counts (%) should be interpreted in the context of the absolute cell counts (cells/uL). Performed By: #### 5 7021-8 #### JENNIEFR TAY ([id number]) [facility] ([facility]) [address] [place] [address] 55978 Neutrophils/100 WBC (Bld) 63.3 % Normal 40.0-80.0 [facility] Comment on above: Performed By: #### 5 7021-8 #### JENNIFER TAY ([id number]) [facility] ([facility]) [address] [place] [address] 51989 Nucleated RBC/100 WBC (Bld) [Ratio] 0.0 /100 WBCs Normal 0.0-0.0 [facility] Comment on above: Performed By: #### 5 7021-8 #### JENNIFER TAY ([id number]) [facility] ([facility]) [address] [place] [address] 84673 Platelets (Bld) [#/Vol] 282 x10*3/uL Normal 150-450 [facility] Comment on above: Performed By: #### 5 7021-8 #### JENNIFER TAY ([id number]) [facility] ([facility]) [address] [place] [address] 70897 RBC (Bld) [#/Vol] 4.46 x10*6/uL Low 4.50-5.90 [facility] Comment on above: Performed By: #### 5 7021-8 #### JENNIFER TAY ([id number]) [facility] ([facility]) [address] [place] [address] 35747 WBC (Bld) [#/Vol] 7.3 x10*3/uL Normal 4.4-11.3 [facility] Comment on above: Performed By: #### 5 7021-8 #### JENNIFER TAY ([id number]) [facility] ([facility]) [address] [place] [address] 97760 Cobalaminson 09-09-2023 Cobalamin (Vitamin B12) [Mass/Vol] 222 pg/mL Normal 211-911 [facility] Comment on above: Performed By: #### 2 132-9 #### JENNIFER TAY ([id number]) [facility] ([facility]) [address] [place] [address] 34872 Comprehensive metabolic 2000 panelon 09-09-2023 Albumin BCP dye [Mass/Vol] 4.4 g/dL Normal 3.4-5.0 [facility] Comment on above: Performed By: #### 2 4323-8 #### JENNIFER TAY ([id number]) [facility] ([facility]) [address] [place] [address] ALP [Catalytic activity/Vol] 55 U/L Normal 33-136 [facility] Comment on above: Performed By: #### 2 4323-8 #### JENNIFER TAY ([id number]) [facility] ([facility]) [address] [place] [address] ALT With P-5'-P [Catalytic activity/Vol] 21 U/L Normal 10-52 [facility] Comment on above: Result Comment: Arlette ents treated with Sulfasalazine may generate falsely decreased results for ALT. Performed By: #### 2 4323-8 #### JENNIFER TAY ([id number]) [facility] ([facility]) [address] [place] [address] 60167 Anion gap [Moles/Vol] 13 mmol/L Normal 10-20 [facility] Comment on above: Performed By: #### 2 4323-8 #### JENNIFER TAY ([id number]) [facility] ([facility]) [address] [place] [address] AST With P-5'-P [Catalytic activity/Vol] 23 U/L Normal 9-39 [facility] Comment on above: Performed By: #### 2 4323-8 #### JENNIFER TAY ([id number]) [facility] ([facility]) [address] [place] [address] Bilirubin [Mass/Vol] 1.0 mg/dL Normal 0.0-1.2 [facility] Comment on above: Performed By: #### 2 4323-8 #### JENNIFER TAY ([id number]) [facility] ([facility]) [address] [place] [address] Calcium [Mass/Vol] 9.5 mg/dL Normal 8.6-10.3 [facility] Comment on above: Performed By: #### 2 4323-8 #### JENNIFER TAY ([id number]) [facility] ([facility]) [address] [place] [address] Chloride [Moles/Vol] 104 mmol/L Normal 98-107 [facility] Comment on above: Performed By: #### 2 4323-8 #### JENNIFER TAY ([id number]) [facility] ([facility]) [facility] [place] [address] CO2 [Moles/Vol] 28 mmol/L Normal 21-32 [facility] Comment on above: Performed By: #### 2 4323-8 #### JENNIFER TAY ([id number]) [facility] ([facility]) [address] [place] [address] 72290 Creatinine [Mass/Vol] 0.89 mg/dL Normal 0.50-1.30 [facility] Comment on above: Performed By: #### 2 4323-8 #### JENNIFER TAY ([id number]) [facility] ([facility]) [address] [place] [address] 26252 Glomerular filtration rate/1.73 sq M.predicted 88 mL/min/1.73m*2 Normal >60 [facility] Comment on above: Result Comment: Calc ulations of estimated GFR are performed using the 2020 CKD-EPI Study Refit equation without the race variable for the IDMS-Traceable creatinine methods. https://jasn.asnjournals.org/content//ASN.53771 70671 Performed By: #### 2 4323-8 #### JENNIFER TAY ([id number]) [facility] ([facility]) [facility] [place] [address] Glucose [Mass/Vol] 124 mg/dL High 74-99 [facility] Comment on above: Performed By: #### 2 4323-8 #### JENNIFER TAY ([id number]) [facility] ([facility]) [facility] [place] [address] Potassium [Moles/Vol] 4.9 mmol/L Normal 3.5-5.3 [facility] Comment on above: Performed By: #### 2 4323-8 #### JENNIFER TAY ([id number]) [facility] ([facility]) [address] [place] [address] Protein [Mass/Vol] 7.1 g/dL Normal 6.4-8.2 [facility] Comment on above: Performed By: #### 2 4323-8 #### JENNIFER TAY ([id number]) [facility] ([facility]) [address] [place] [address] 51548 Sodium [Moles/Vol] 140 mmol/L Normal 136-145 [facility] Comment on above: Performed By: #### 2 4323-8 #### JENNIFER TAY ([id number]) [facility] ([facility]) [address] [place] [address] Urea nitrogen [Mass/Vol] 15 mg/dL Normal 6-23 [facility] Comment on above: Performed By: #### 2 4323-8 #### JENNIFER TAY ([id number]) [facility] ([facility]) [address] [place] [address] Ferritinon 09-09-2023 Ferritin [Mass/Vol] 193 ng/mL Normal 20-300 [facility] Comment on above: Performed By: #### 2 276-4 #### JENNIFER TAY ([id number]) [facility] ([facility]) [address] [place] [address] Folateon 09-09-2023 Folate [Mass/Vol] ng/mL Normal >5.0 [facility] [facility] Comment on above: Order Comment: Low < 3.4 Borderline 3.4-5.0 Normal >5.0 Patients receiving more than 5 mg/day of biotin may have interference in test results. A sample should be taken no sooner than eight hours after previous dose. Contact the testing laboratory for additional information. Performed By: #### 2 284-8 #### JENNIFER TAY ([id number]) [facility] ([facility]) [address] [place], [place] [id number] HbA1c (Bld) [Mass fraction]o n 09-09-2023 Average glucose Estimated from glycated hemoglobin (Bld) [Mass/Vol] 154 mg/dL Normal Not Established [facility] Comment on above: Order Comment: Diagn osis of Diabetes-Adults Non-Diabetic: < or = 5.6% Increased risk for developing diabetes: 5.7-6.4% Diagnostic of diabetes: > or = 6.5% Monitoring of Diabetes Age (y)....................... Therapeutic Goal (%) Adults: >18.........................<7.0 Pediatrics: 13-18...................<7.5 Pediatrics: 7-12....................<8.0 Pediatrics: 0-6..................... 7.5-8.5 [employer]. Diabetes Care 33(S1), Jun 2009 Performed By: #### 4 548-4 #### RODRIGUEZ MAGGI ([id number]) [facility] ([facility]) [address] [place] [address] Hemoglobin A1c/Hemoglobin.to dagoberto 09-09-2023 HbA1c (Bld) [Mass fraction] 7.0 % High see below [facility] Comment on above: Order Comment: Diagn osis of Diabetes-Adults Non-Diabetic: < or = 5.6% Increased risk for developing diabetes: 5.7-6.4% Diagnostic of diabetes: > or = 6.5% Monitoring of Diabetes Age (y)....................... Therapeutic Goal (%) Adults: >18.........................<7.0 Pediatrics: 13-18...................<7.5 Pediatrics: 7-12....................<8.0 Pediatrics: 0-6..................... 7.5-8.5 [employer]. Diabetes Care 33(S1), Jun 2009 Performed By: #### 4 548-4 #### JENNIFER TAY ([id number]) [facility] ([facility]) [address] [place] [address] Iron and Iron binding capaci ty panelon 09-09-2023 Iron [Mass/Vol] 108 ug/dL Normal 35-150 [facility] Comment on above: Performed By: #### 5 0190-8 #### JENNIFER TAY ([id number]) [facility] ([facility]) [address] [place] [address] Iron binding capacity [Mass/Vol] 334 ug/dL Normal 240-445 [facility] Comment on above: Performed By: #### 5 0190-8 #### JENNIFER TAY ([id number]) [facility] ([facility]) [address] [place] [address] Iron binding capacity.unsaturated [Mass/Vol] 226 ug/dL Normal 110-370 [facility] Comment on above: Performed By: #### 5 0190-8 #### JENNIFER TAY ([id number]) [facility] ([facility]) [address] [place] [address] Iron saturation [Mass fraction] 32 % Normal 25-45 [facility] Comment on above: Performed By: #### 5 0190-8 #### JENNIFER TAY ([id number]) [facility] ([facility]) [address] [place] [address] Methylmalonateon 09-09-2023 Methylmalonate [Moles/Vol] 0.18 umol/L Normal 0.00-0.40 [facility] Comment on above: Result Comment: INTE RPRETIVE INFORMATION: MMA Serum/Plasma, Vitamin B12 Status This test was developed and its performance characteristics determined by [employer]. It has not been cleared or approved by the US Food and Drug Administration. This test was performed in a CLIA certified laboratory and is intended for clinical purposes. Performed By: [facility] [address] [place] [address] Visual Lead: Tong Emanuel MD, PhD [place] Number: [id number] Performed By: #### 1 3964-2 #### [facility] (AMELIA) ([id number]) [address] [place] [address] US.doppler Upper extremity v ein - lefton 04-09-2023 [place] [phone], Vascular Lab Report Upper Venous Duplex Ultrasound Patient Name: HATTIE VALDERRAMA Reading [id number] Graciela Stephenson MD Physician: Study Date: 04/08/2023 Ordering [id number] NEYMAR Sánchez Provider: DUC MRN/PID: [id number] Fellow: Technologist: Monalisa Rojas RVT/AB Date of 1945 Technologist 2: /Age: years Gender: M Admission Status: Outpatient Location [facility] Performed: Diagnosis/ICD: Lymphedema, not elsewhere classified-I89.0 CONCLUSIONS: Right Upper Venous: The subclavian vein demonstrates a normal spontaneous and phasic flow. Left Upper Venous: No evidence of acute deep vein thrombus visualized in the left upper extremity. Imaging & Doppler Findings: Right Flow Subclavian Spontaneous/Phasic Left Compress Thrombus Flow Internal Jugular Yes None Spontaneous/Phasic Subclavian Yes None Spontaneous/Phasic Subclavian Proximal Yes None Spontaneous/Phasic Subclavian Mid Yes None Spontaneous/Phasic Subclavian Distal Yes None Spontaneous/Phasic Axillary Yes None Spontaneous/Phasic Brachial Yes None Spontaneous/Phasic Cephalic Yes None Basilic Yes None [id number] Graciela Stephenson MD Final Graciela Farrell MD - 04/09/2023 [place] [phone], Vascular Lab Report Upper Venous Duplex Ultrasound Patient Name: HATTIE VALDERRAMA Reading [id number] Graciela Stephenson MD Physician: Study Date: 04/08/2023 Ordering [id number] NEYMAR Sánchez Provider: ARUNCRISSYTABBY MRN/PID: [id number] Fellow: Technologist: Monalisa Rojas RVT/AB Date of 1945 Technologist 2: /Age: years Gender: M Admission Status: Outpatient Location [facility] Performed: Diagnosis/ICD: Lymphedema, not elsewhere classified-I89.0 CONCLUSIONS: Right Upper Venous: The subclavian vein demonstrates a normal spontaneous and phasic flow. Left Upper Venous: No evidence of acute deep vein thrombus visualized in the left upper extremity. Imaging & Doppler Findings: Right Flow Subclavian Spontaneous/Phasic Left Compress Thrombus Flow Internal Jugular Yes None Spontaneous/Phasic Subclavian Yes None Spontaneous/Phasic Subclavian Proximal Yes None Spontaneous/Phasic Subclavian Mid Yes None Spontaneous/Phasic Subclavian Distal Yes None Spontaneous/Phasic Axillary Yes None Spontaneous/Phasic Brachial Yes None Spontaneous/Phasic Cephalic Yes None Basilic Yes None [id number] Graciela Stephenson MD Final [facility] Work Phone: US.doppler Upper extremity v ein - leftOrdered By: Graciela Stephenson on 04-09-2023 [facility] Work Phone: US.doppler Upper extremity v ein - lefton 04-08-2023 Radiology Study observation (narrative) [facility] Work Phone: PTINR - POCTon 02-17-2023 INR Coag (PPP) [Relative time] 2.8 {INR} High 1.0 - 1.2 [facility] Comment on above: Performed By: #### P [facility] #### [address] [address] PT Coag (PPP) [Time] 32.5 s High 8.0 - 11.0 [facility] Comment on above: Performed By: #### P SAS #### [place] [id number] PTINR - POCTon 02-03-2023 INR Coag (PPP) [Relative time] 3.5 {INR} High 1.0 - 1.2 [facility] Comment on above: Performed By: #### P PTIN #### [facility] [address] [place] [address] PT Coag (PPP) [Time] 39.1 s High 8.0 - 11.0 [facility] Comment on above: Performed By: #### P PTIN #### [facility] [address] [address] COMPREHENSIVE PANELon 2022 Albumin [Mass/Vol] 4.3 g/dL Normal 3.4 - 5.0 [facility] Comment on above: Performed By: #### C MP #### [address] [address] ALP [Catalytic activity/Vol] 63 U/L Normal 33 - 136 [facility] Comment on above: Performed By: #### C MP #### [address] [address] ALT [Catalytic activity/Vol] 18 U/L Normal 10 - 52 [facility] Comment on above: Result Comment: Arlette ents treated with Sulfasalazine may generate falsely decreased results for ALT. Performed By: #### C MP #### [address] [address] Anion gap [Moles/Vol] 12 mmol/L Normal 10 - 20 [facility] Comment on above: Performed By: #### C MP #### [address] [address] AST [Catalytic activity/Vol] 20 U/L Normal 9 - 39 [facility] Comment on above: Performed By: #### C MP #### [address] [address] Bilirubin [Mass/Vol] 1.0 mg/dL Normal 0.0 - 1.2 [facility] Comment on above: Performed By: #### C MP #### [address] [address] Calcium [Mass/Vol] 9.4 mg/dL Normal 8.6 - 10.3 [facility] Comment on above: Performed By: #### C MP #### [address] [address] Chloride [Moles/Vol] 104 mmol/L Normal 98 - 107 [facility] Comment on above: Performed By: #### C MP #### [address] [address] Creatinine [Mass/Vol] 0.96 mg/dL Normal 0.50 - 1.30 [facility] Comment on above: Performed By: #### C MP #### [address] [address] GFR/1.73 sq M.predicted among non-blacks MDRD (S/P/Bld) [Vol rate/Area] 82 mL/min/{1.73_m2} Normal >90 [facility] Comment on above: Result Comment: CALC ULATIONS OF ESTIMATED GFR ARE PERFORMED USING THE 2020 CKD-EPI STUDY REFIT EQUATION WITHOUT THE RACE VARIABLE FOR THE IDMS-TRACEABLE CREATININE METHODS. https://jasn.asnjournals.org/content//ASN.20288 44327 Performed By: #### C MP #### [address] [address] Glucose [Mass/Vol] 108 mg/dL High 74 - 99 [facility] Comment on above: Performed By: #### C MP #### [address] [address] HCO3 (Bld) [Moles/Vol] 27 mmol/L Normal 21 - 32 [facility] Comment on above: Performed By: #### C MP #### [address] [address] Potassium [Moles/Vol] 4.3 mmol/L Normal 3.5 - 5.3 [facility] Comment on above: Performed By: #### C MP #### [address] [address] Protein [Mass/Vol] 7.0 g/dL Normal 6.4 - 8.2 [facility] Comment on above: Performed By: #### C MP #### [address] [address] Sodium [Moles/Vol] 139 mmol/L Normal 136 - 145 [facility] Comment on above: Performed By: #### C MP #### [address] [address] Urea nitrogen [Mass/Vol] 21 mg/dL Normal 6 - 23 [facility] Comment on above: Performed By: #### C MP #### [address] [address] HEMOGLOBIN A1Con 01-06-2023 Glucose [Mass/Vol] 154 mg/dL Normal [facility] Comment on above: Performed By: #### P [facility] #### [address] [address] HbA1c (Bld) [Mass fraction] 7.0 % Abnormal [facility] Comment on above: Result Comment: Diag nosis of Diabetes-Adults Non-Diabetic: < or = 5.6% Increased risk for developing diabetes: 5.7-6.4% Diagnostic of diabetes: > or = 6.5% . Monitoring of Diabetes Age (y) Therapeutic Goal (%) Adults: >18 <7.0 Pediatrics: 13-18 <7.5 7-12 <8.0 0- 6 7.5-8.5 [employer]. Diabetes Care 33(S1), Jun 2009. Performed By: #### P [facility] #### [address] [address] HEPATITIS C ABon 01-06-2023 HEPATITIS C AB Non-Reactive Normal NONREACTIVE [facility] Comment on above: Result Comment: Resu lts from patients taking biotin supplements or receiving high-dose biotin therapy should be interpreted with caution due to possible interference with this test. Providers may contact their local laboratory for further information. Performed By: #### H CVAB #### [facility] [address] [place] [address] LIPID PANEL (CORONARY RISK 2 )on 01-06-2023 Cholesterol [Mass/Vol] 110 mg/dL Normal 0 - 199 [facility] Comment on above: Result Comment: . AGE DESIRABLE BORDERLINE HIGH HIGH 0-19 Y 0 - 169 170 - 199 >/= 200 20-24 Y 0 - 189 190 - 224 >/= 225 >24 Y 0 - 199 200 - 239 >/= 240 All ranges are based on fasting samples. Specific therapeutic targets will vary based on patient-specific cardiac risk. . Pediatric guidelines reference:Pediatrics 2011, 128(S5). Adult guidelines reference: NCEP ATPIII Guidelines, GISELLE 2001, 258:2486-97 . Venipuncture immediately after or during the administration of Metamizole may lead to falsely low results. Testing should be performed immediately prior to Metamizole dosing. Performed By: #### P [facility] #### [address] [address] Cholesterol in HDL [Mass/Vol] 41.0 mg/dL Normal [facility] Comment on above: Result Comment: . AGE VERY LOW LOW NORMAL HIGH 0-19 Y < 35 < 40 40-45 ---- 20-24 Y ---- < 40 >45 ---- >24 Y ---- < 40 40-60 >60 . Performed By: #### P [facility] #### [address] [address] Cholesterol in LDL [Mass/Vol] 44 mg/dL Normal 0 - 99 [facility] Comment on above: Result Comment: . NEAR BORD AGE DESIRABLE OPTIMAL HIGH HIGH VERY HIGH 0-19 Y 0 - 109 --- 110-129 >/= 130 ---- 20-24 Y 0 - 119 --- 120-159 >/= 160 ---- >24 Y 0 - 99 100-129 130-159 160-189 >/=190 . Performed By: #### P [facility] #### [address] [address] Cholesterol in VLDL [Mass/Vol] 25 mg/dL Normal 0 - 40 [facility] Comment on above: Performed By: #### P [facility] #### [address] [address] Cholesterol.total/Chol esterol in HDL [Mass ratio] 2.7 {ratio} Normal [facility] Comment on above: Result Comment: REF VALUES DESIRABLE < 3.4 HIGH RISK > 5.0 Performed By: #### P SAS #### [address] [address] Triglyceride [Mass/Vol] 126 mg/dL Normal 0 - 149 [facility] Comment on above: Result Comment: . AGE DESIRABLE BORDERLINE HIGH HIGH VERY HIGH 0 D-90 D 19 - 174 ---- ---- ---- 91 D- 9 Y 0 - 74 75 - 99 >/= 100 ---- 10-19 Y 0 - 89 90 - 129 >/= 130 ---- 20-24 Y 0 - 114 115 - 149 >/= 150 ---- >24 Y 0 - 149 150 - 199 200- 499 >/= 500 . Venipuncture immediately after or during the administration of Metamizole may lead to falsely low results. Testing should be performed immediately prior to Metamizole dosing. Performed By: #### P SAS #### [place] [id number] PROSTATE SPEC.AG,SCREENon PROSTATE SPEC.AG,SCREEN 2.16 ng/mL Normal 0.00 - 4.00 [facility] Comment on above: Result Comment: The FDA requires that the method used for PSA assay be reported to the physician. Values obtained with different assay methods must not be used interchangeably. This test was performed at [facility] using the [employer] PSA assay is a two-site immunoenzymatic sandwich assay. The assay is approved for measurement of prostate-specific antigen (PSA)in serum and may be used in conjunction with a digital rectal examination in men 50 years and older as an aid in detection of prostate cancer. 7-Wkfhb-elehmvfly inhibitors (e.g. Proscar, Finasteride, Avodart, Dutasteride and Yessy) for the treatment of BPH have been shown to lower PSA levels by an average of 50% after 6 months of treatment. Performed By: #### P [facility] #### [address] [address] Lab Specimen Source [facility] Comment on above: Performed By: #### P [facility] #### [address] [address] Performed By: #### H CVAB #### [facility] [address] [place] [address] Performed By: #### C MP #### [address] [address] PTINR - POCTon 01-06-2023 INR Coag (PPP) [Relative time] 2.3 {INR} High 1.0 - 1.2 [facility] Comment on above: Performed By: #### P PTIN #### [facility] [address] [address] PT Coag (PPP) [Time] 26.2 s High 8.0 - 11.0 [facility] Comment on above: Performed By: #### P PTIN #### [facility] [place] [address] [facility] INR Coag (PPP) [Relative time] 3.2 {INR} High 1.0 - 1.2 [facility] Comment on above: Performed By: #### P PTIN #### [facility] [address] [address] PT Coag (PPP) [Time] 36.4 s High 8.0 - 11.0 [facility] Comment on above: Performed By: #### P PTIN #### [facility] [address] [address] [facility]2022 INR Coag (PPP) [Relative time] 2.9 {INR} High 1.0 - 1.2 [facility] Comment on above: Performed By: #### P PTIN #### [facility] [address] [address] PT Coag (PPP) [Time] 33.1 s High 8.0 - 11.0 [facility] Comment on above: Performed By: #### P PTIN #### [facility] [address] [address] [facility]-2022 INR Coag (PPP) [Relative time] 2.5 {INR} High 1.0 - 1.2 [facility] Comment on above: Performed By: #### P PTIN #### [facility] [address] [address] PT Coag (PPP) [Time] 28.2 s High 8.0 - 11.0 [facility] Comment on above: Performed By: #### P PTIN #### [facility] [address] [address] Laboratory - Coagulationon 0 09-10-2022 PT Coag (PPP) [Time] 30.8 s above high threshold 8.0 - 11.0 [facility] Work Phone: No Panel Informationon 09-10 2.7 1 above high threshold 1.0 - 1.2 [facility] Work Phone: PTINR - POCTon 09-10-2022 INR Coag (PPP) [Relative time] 2.7 {INR} High 1.0 - 1.2 [facility] Comment on above: Performed By: #### P SASC #### [address] [address] PT Coag (PPP) [Time] 30.8 s High 8.0 - 11.0 [facility] Comment on above: Performed By: #### P SASC #### [address] [address] COMPREHENSIVE PANELon 2022 Albumin [Mass/Vol] 4.3 g/dL Normal 3.4 - 5.0 [facility] Comment on above: Performed By: #### C MP #### [address] [address] ALP [Catalytic activity/Vol] 65 U/L 33 - 136 [facility] Work Phone: Comment on above: Performed By: #### C MP #### [address] [address] ALT [Catalytic activity/Vol] 24 U/L Normal 10 - 52 [facility] Comment on above: Result Comment: Arlette ents treated with Sulfasalazine may generate falsely decreased results for ALT. Performed By: #### C MP #### [address] [address] Anion gap [Moles/Vol] 12 mmol/L 10 - 20 [facility] Work Phone: Comment on above: Performed By: #### C MP #### [address] [address] AST [Catalytic activity/Vol] 21 U/L Normal 9 - 39 [facility] Comment on above: Performed By: #### C MP #### [address] [address] Bilirubin [Mass/Vol] 0.7 mg/dL 0.0 - 1.2 [facility] Work Phone: Comment on above: Performed By: #### C MP #### [address] [address] Calcium [Mass/Vol] 9.3 mg/dL 8.6 - 10.3 [facility] Work Phone: Comment on above: Performed By: #### C MP #### [address] [address] Chloride [Moles/Vol] 104 mmol/L 98 - 107 [facility] Work Phone: Comment on above: Performed By: #### C MP #### [address] [address] Creatinine [Mass/Vol] 0.83 mg/dL See Below [facility] Work Phone: Comment on above: Reference Range: 0.5 0 - 1.30 Performed By: #### C MP #### [address] [address] GFR/1.73 sq M.predicted among non-blacks MDRD (S/P/Bld) [Vol rate/Area] 90 mL/min/{1.73_m2} Normal >90 [facility] Comment on above: Result Comment: CALC ULATIONS OF ESTIMATED GFR ARE PERFORMED USING THE 2020 CKD-EPI STUDY REFIT EQUATION WITHOUT THE RACE VARIABLE FOR THE IDMS-TRACEABLE CREATININE METHODS. https://jasn.asnjournals.org/content//ASN.58981 [address] Performed By: #### C MP #### [address] [address] Glucose [Mass/Vol] 132 mg/dL above high threshold 74 - 99 [facility] Work Phone: Comment on above: Performed By: #### C MP #### [address] [address] HCO3 (Bld) [Moles/Vol] 26 mmol/L Normal 21 - 32 [facility] Comment on above: Performed By: #### C MP #### [address] [address] Potassium [Moles/Vol] 4.7 mmol/L 3.5 - 5.3 [facility] Work Phone: Comment on above: Performed By: #### C MP #### [address] [address] Protein [Mass/Vol] 7.4 g/dL 6.4 - 8.2 [facility] Work Phone: Comment on above: Performed By: #### C MP #### [address] [address] Sodium [Moles/Vol] 137 mmol/L 136 - 145 [facility] Work Phone: Comment on above: Performed By: #### C MP #### [address] [address] Urea nitrogen [Mass/Vol] 13 mg/dL 6 - 23 [facility] Work Phone: Comment on above: Performed By: #### C MP #### [address] [address] Hemoglobin A1Con 09-02-2022 Glucose [Mass/Vol] 160 mg/dL [facility] Work Phone: Comment on above: Performed By: #### H BA1E ####[address] [address] HbA1c (Bld) [Mass fraction] 7.2 % Abnormal [facility] Work Phone: Comment on above: Diagnosis of Diabete s-Adults Non-Diabetic: < or = 5.6% Increased risk for developing diabetes: 5.7-6.4% Diagnostic of diabetes: > or = 6.5%. Monitoring of Diabetes Age (y) Therapeutic Goal (%) Adults: >18 <7.0 Pediatrics: 13-18 <7.5 7-12 <8.0 0- 6 7.5-8.5 [employer]. Diabetes Care 33(S1), Jun 2009. Result Comment: Diag nosis of Diabetes-Adults Non-Diabetic: < or = 5.6% Increased risk for developing diabetes: 5.7-6.4% Diagnostic of diabetes: > or = 6.5% . Monitoring of Diabetes Age (y) Therapeutic Goal (%) Adults: >18 <7.0 Pediatrics: 13-18 <7.5 7-12 <8.0 0- 6 7.5-8.5 [employer]. Diabetes Care 33(S1), Jun 2009. Performed By: #### H BA1E ####[address] [address] Laboratory - Chemistry and C hemistry - challengeon 09-02-2022 Albumin BCP dye [Mass/Vol] 4.3 g/dL 3.4 - 5.0 [facility] Work Phone: ALT With P-5'-P [Catalytic activity/Vol] 24 U/L 10 - 52 [facility] Work Phone: Comment on above: Patients treated wit h Sulfasalazine may generate falsely decreased results for ALT. AST With P-5'-P [Catalytic activity/Vol] 21 U/L 9 - 39 [facility] Work Phone: CO2 [Moles/Vol] 26 mmol/L 21 - 32 [facility] Work Phone: No Panel Informationon 09-02 90 {mL/min/1.73m2} >90 [facility] Work Phone: Comment on above: CALCULATIONS OF STEVE MATED GFR ARE PERFORMED USING THE 2020 CKD-EPI STUDY REFIT EQUATION WITHOUT THE RACE VARIABLE FOR THE IDMS-TRACEABLE CREATININE METHODS.https://jasn.asnjournals.org/content//A SN.[id number] Laboratory - Coagulationon 0 08-06-2022 PT Coag (PPP) [Time] 25.9 s above high threshold 8.0 - 11.0 [facility] Work Phone: No Panel Informationon 08-06 2.2 1 above high threshold 1.0 - 1.2 [facility] Work Phone: PTINR - POCTon 08-06-2022 INR Coag (PPP) [Relative time] 2.2 {INR} High 1.0 - 1.2 [facility] Comment on above: Performed By: #### P SAS #### [place] [id number] PT Coag (PPP) [Time] 25.9 s High 8.0 - 11.0 [facility] Comment on above: Performed By: #### P SAS #### [place] [id number] Laboratory - Coagulationon 0 07-08-2022 PT Coag (PPP) [Time] 25.0 s above high threshold 8.0 - 11.0 [facility] Work Phone: No Panel Informationon 07-08 2.2 1 above high threshold 1.0 - 1.2 [facility] Work Phone: PTINR - POCTon 07-08-2022 INR Coag (PPP) [Relative time] 2.2 {INR} High 1.0 - 1.2 [facility] Comment on above: Performed By: #### P SASC #### [address] [address] PT Coag (PPP) [Time] 25.0 s High 8.0 - 11.0 [facility] Comment on above: Performed By: #### P SASC #### [address] [address] Laboratory - Coagulationon 1 08-12-2021 PT Coag (PPP) [Time] 35.5 s above high threshold 8.0 - 11.0 [facility] Work Phone: No Panel Informationon 06-11 3.1 1 above high threshold 1.0 - 1.2 [facility] Work Phone: PTINR - POCTon 06-11-2022 INR Coag (PPP) [Relative time] 3.1 {INR} High 1.0 - 1.2 [facility] Comment on above: Performed By: #### P PTIN #### [facility] [place] [id number] PT Coag (PPP) [Time] 35.5 s High 8.0 - 11.0 [facility] Comment on above: Performed By: #### P PTIN #### [facility] [address] [place] [id number] IO EKG Electrocardiogram- 12 Leadon 05-14-2022 IO EKG Electrocardiogram- 12 Lead See Scanned Document [facility] [facility] Medicine Work Phone: Laboratory - Coagulationon 1 07-14-2021 PT Coag (PPP) [Time] 32.5 s above high threshold 8.0 - 11.0 [facility] Internal Medicine Work Phone: No Panel Informationon 05-14 2.8 1 above high threshold 1.0 - 1.2 [facility] Medicine Work Phone: Office Visit (Internal Medic ine)on 05-14-2022 Follow-up visit Diagnoses/Problems Assessed DM2 (diabetes mellitus, type 2) (250.00) (E11.9) Hypercholesterolemia (272.0) (E78.00) Benign essential hypertension (401.1) (I10) Chronic atrial fibrillation, unspecified (427.31) (I48.20) Muscle cramp (729.82) (R25.2) Orders Benign essential hypertension Changed: From Metoprolol Succinate ER 100 MG Oral Tablet Extended Release 24 Hour TAKE 1.5 TABLET Daily To Metoprolol Succinate ER 100 MG Oral Tablet Extended Release 24 Hour (Toprol XL) Take 1 tablet twice daily Rx By: Neymar Xavier; Dispense: 90 Days ; #:180 Tablet; Refill: 3;For: Benign essential hypertension; CONSTANTINO = N; Sent To: [facility] 1811 Chronic atrial fibrillation, unspecified Renew: Warfarin Sodium 2 MG Oral Tablet; Take as directed Rx By: Neymar Xavier; Dispense: 90 Days ; #:360 Tablet; Refill: 3;For: Chronic atrial fibrillation, unspecified; CONSTANTINO = N; Sent To: [facility]; Last Updated By: Bianca Ambrocio; 05/14/2022 3:09:39 PM DM2 (diabetes mellitus, type 2) Renew: Glimepiride 2 MG Oral Tablet; Take 1 tablet daily Rx By: Neymar Xavier; Dispense: 0 Days ; #:90 Tablet; Refill: 3;For: DM2 (diabetes mellitus, type 2); CONSTANTINO = N; Sent To: [facility]; Last Updated By: Bianca Ambrocio; 05/14/2022 3:09:39 PM Renew: metFORMIN HCl - 500 MG Oral Tablet; TAKE 2 TABLET Twice daily Rx By: Neymar Xavier; Dispense: 0 Days ; #:360 Tablet; Refill: 3;For: DM2 (diabetes mellitus, type 2); CONSTANTINO = N; Sent To: [facility]; Last Updated By: Bianca Ambrocio; 05/14/2022 3:09:39 PM Hypercholesterolemia Stop: Simvastatin 20 MG Oral Tablet Rx By: Neymar Xavier; Dispense: 90 Days ; #:90 Tablet; Refill: 3;For: Hypercholesterolemia; CONSTANTINO = N; Sent To: [facility] Start: Atorvastatin Calcium 40 MG Oral Tablet (Lipitor); TAKE 1 TABLET AT BEDTIME Rx By: Neymar Xavier; Dispense: 90 Days ; #:90 Tablet; Refill: 3;For: Hypercholesterolemia; CONSTANTINO = N; Sent To: [facility] 1811 Muscle cramp Start: Magnesium Oxide 400 (240 Mg) MG Oral Tablet; TAKE 1 TABLET BY MOUTH EVERY DAY Rx By: Neymar Xavier; Dispense: 30 Days ; #:30 Tablet; Refill: 11;For: Muscle cramp; CONSTANTINO = N; Sent To: [facility] 1811 Patient Discussion/Summary F/U 4 MO CMP HGA1C Provider Impressions MONITOR BP GOAL BP LOWER THAN 130/80 LOW SALT EXERCISE DAILY [address] HGA1C GOAL LESS THAN 7 LOSE WT EXERCISE DAILY MDM 1) COMPLEXITY: 1 OR MORE CHRONIC CONDITION WITH EXACERBATION, OR PROGRESSION OR SIDE EFFECT OF TREATMENT ADDRESSED 2)DATA: TESTS INTERPRETED AND OR ORDERED, TOOK INDEPENDENT HISTORY OR RECORDS REVIEWED 3)RISK: MODERATE RISK DUE TO NATURE OF MEDICAL CONDITIONS/COMORBIDITY OR MEDICATIONS ORDERED OR SURGICAL OR PROCEDURE REFERRAL, . Chief Complaint PT HERE TODAY FOR 4 MO F/U LAB RESULTS. PT C/O OF CRAMPS IN BOTH LEGS. PT STATES THE CRAMPS STARTED 1 MO AGO History of Present IllnessHERE FOR F/U WITH LABS C/O LE CRAMPS X 1 MO BP VERY GOOD AT HOME Review of Systems Constitutional: not feeling poorly, no fever, no recent weight gain and no recent weight loss. Eyes: no blurred vision and no diplopia. ENT: no hearing loss, no tinnitus, no earache, no sore throat, no hoarseness and no swollen glands in the neck. Cardiovascular: no chest pain, no tightness or heavy pressure, no shortness of breath, no palpitations and no lower extremity edema. Respiratory: no cough, not coughing up sputum and no wheezing that is consistent with asthma. Gastrointestinal: no change in bowel habits, no diarrhea, no constipation, no bloody stools, no nausea, no vomiting, no abdominal pain, no signs and symptoms of ulcer disease, no issac colored stools and no intolerance to fatty foods. Genitourinary: no urinary frequency, no dysuria, no hematuria, no burning sensation during urination, urinary stream is not smaller and urinary stream does not start and stop. Musculoskeletal: no arthralgias, no joint stiffness, no muscle weakness, no back pain and no difficulty walking. Skin: no rashes, no change in skin color and pigmentation, no skin lesions and no skin lumps. Neurological: no headaches, no dizziness, no seizures, no tingling, no numbness, no signs and symptoms of stroke and no limb weakness. Psychiatric: no confusion, no memory lapses or loss, no depression and no sleep disturbances. Endocrine: no goiter, no thyroid disorder, no diabetes mellitus, no excessive thirst, no dry skin, no cold intolerance, no heat intolerance and no increased urinary frequency. Hematologic/Lymphatic: is not slow to heal, does not bleed easily, does not bruise easily, no thrombophlebitis, no anemia and no history of blood transfusion. All other systems have been reviewed and are negative for complaint. Active Problems Problems Benign essential hypertension (401.1) (I10) Chronic atrial fibrillation, unspecified (427.31) (I48.20) Diverticulosis (562.10) (K57 (more content not included)... Normal [employer] PTINR - POCTon 05-14-2022 INR Coag (PPP) [Relative time] 2.8 {INR} High 1.0 - 1.2 [facility] Comment on above: Performed By: #### P SAS #### [address] [address] PT Coag (PPP) [Time] 32.5 s High 8.0 - 11.0 [facility] Comment on above: Performed By: #### P SAS #### [address] [address] Tobacco Screening.on 022 Fall risk assessment a) No falls within the last year [facility] Work Phone: Tobacco use status [facility] b) No [facility] Work Phone: COMPREHENSIVE PANELon 2021 Albumin [Mass/Vol] 4.2 g/dL Normal 3.4 - 5.0 [facility] Comment on above: Performed By: #### C MP ####[address] [address] ALP [Catalytic activity/Vol] 50 U/L Normal 33 - 136 [facility] Comment on above: Performed By: #### C MP ####[address] [address] ALT [Catalytic activity/Vol] 17 U/L Normal 10 - 52 [facility] Comment on above: Result Comment: Arlette ents treated with Sulfasalazine may generate falsely decreased results for ALT. Performed By: #### C MP ####[address] [address] Anion gap [Moles/Vol] 10 mmol/L Normal 10 - 20 [facility] Comment on above: Performed By: #### C MP ####[address] [address] AST [Catalytic activity/Vol] 19 U/L Normal 9 - 39 [facility] Comment on above: Performed By: #### C MP ####[address] [address] Bilirubin [Mass/Vol] 0.8 mg/dL Normal 0.0 - 1.2 [facility] Comment on above: Performed By: #### C MP ####[address] [address] Calcium [Mass/Vol] 9.0 mg/dL Normal 8.6 - 10.3 [facility] Comment on above: Performed By: #### C MP ####[address] [address] Chloride [Moles/Vol] 103 mmol/L Normal 98 - 107 [facility] Comment on above: Performed By: #### C MP ####[address] [address] Creatinine [Mass/Vol] 0.95 mg/dL Normal 0.50 - 1.30 [facility] Comment on above: Performed By: #### C MP ####[address] [address] GFR/1.73 sq M.predicted among non-blacks MDRD (S/P/Bld) [Vol rate/Area] 83 mL/min/{1.73_m2} Normal >90 [facility] Comment on above: Result Comment: CALC ULATIONS OF ESTIMATED GFR ARE PERFORMED USING THE 2020 CKD-EPI STUDY REFIT EQUATION WITHOUT THE RACE VARIABLE FOR THE IDMS-TRACEABLE CREATININE METHODS. https://jasn.asnjournals.org/content//ASN.06579 44069 Performed By: #### C MP ####[address] [address] Glucose [Mass/Vol] 133 mg/dL High 74 - 99 [facility] Comment on above: Performed By: #### C MP ####[address] [address] HCO3 (Bld) [Moles/Vol] 29 mmol/L Normal 21 - 32 [facility] Comment on above: Performed By: #### C MP ####[address] [address] Potassium [Moles/Vol] 4.4 mmol/L Normal 3.5 - 5.3 [facility] Comment on above: Performed By: #### C MP ####[address] [address] Protein [Mass/Vol] 7.3 g/dL Normal 6.4 - 8.2 [facility] Comment on above: Performed By: #### C MP ####[address] [address] Sodium [Moles/Vol] 138 mmol/L Normal 136 - 145 [facility] Comment on above: Performed By: #### C MP ####[address] [address] Urea nitrogen [Mass/Vol] 16 mg/dL Normal 6 - 23 [facility] Comment on above: Performed By: #### C MP ####[address] [address] HEMOGLOBIN A1Con 05-05-2022 Glucose [Mass/Vol] 154 mg/dL Normal [facility] Comment on above: Performed By: #### H BA1E #### [address] [address] HbA1c (Bld) [Mass fraction] 7.0 % Abnormal [facility] Comment on above: Result Comment: Diag nosis of Diabetes-Adults Non-Diabetic: < or = 5.6% Increased risk for developing diabetes: 5.7-6.4% Diagnostic of diabetes: > or = 6.5% . Monitoring of Diabetes Age (y) Therapeutic Goal (%) Adults: >18 <7.0 Pediatrics: 13-18 <7.5 7-12 <8.0 0- 6 7.5-8.5 [employer]. Diabetes Care 33(S1), Jun 2009. Performed By: #### H BA1E #### [facility] [address] [place] [address] Hemoglobin A1Con 05-05-2022 Glucose [Mass/Vol] 154 mg/dL [facility] Work Phone: [phone] HbA1c (Bld) [Mass fraction] 7.0 % Abnormal [facility] Work Phone: Comment on above: Diagnosis of Diabete s-Adults Non-Diabetic: < or = 5.6% Increased risk for developing diabetes: 5.7-6.4% Diagnostic of diabetes: > or = 6.5%. Monitoring of Diabetes Age (y) Therapeutic Goal (%) Adults: >18 <7.0 Pediatrics: 13-18 <7.5 7-12 <8.0 0- 6 7.5-8.5 [employer]. Diabetes Care 33(S1), Jun 2009. Laboratory - Chemistry and C hemistry - challengeon 05-05-2022 Albumin BCP dye [Mass/Vol] 4.2 g/dL 3.4 - 5.0 [facility] Medicine Work Phone: [phone] ALP [Catalytic activity/Vol] 50 U/L 33 - 136 [facility] Work Phone: [phone] ALT With P-5'-P [Catalytic activity/Vol] 17 U/L 10 - 52 [facility] Work Phone: Comment on above: Patients treated wit h Sulfasalazine may generate falsely decreased results for ALT. Anion gap [Moles/Vol] 10 mmol/L 10 - 20 [facility] Medicine Work Phone: AST With P-5'-P [Catalytic activity/Vol] 19 U/L 9 - 39 [facility] Work Phone: Bilirubin [Mass/Vol] 0.8 mg/dL 0.0 - 1.2 [facility] Work Phone: [phone] Calcium [Mass/Vol] 9.0 mg/dL 8.6 - 10.3 [facility] Work Phone: Chloride [Moles/Vol] 103 mmol/L 98 - 107 [facility] Work Phone: CO2 [Moles/Vol] 29 mmol/L 21 - 32 [facility] Work Phone: Creatinine [Mass/Vol] 0.95 mg/dL See Below [facility] Work Phone: Comment on above: Reference Range: 0.5 0 - 1.30 Glucose [Mass/Vol] 133 mg/dL above high threshold 74 - 99 [facility] Work Phone: Potassium [Moles/Vol] 4.4 mmol/L 3.5 - 5.3 [facility] Work Phone: Protein [Mass/Vol] 7.3 g/dL 6.4 - 8.2 [facility] Work Phone: Sodium [Moles/Vol] 138 mmol/L 136 - 145 [facility] Work Phone: Urea nitrogen [Mass/Vol] 16 mg/dL 6 - 23 [facility] Work Phone: No Panel Informationon 05-05 83 {mL/min/1.73m2} >90 [facility] Work Phone: Comment on above: CALCULATIONS OF STEVE MATED GFR ARE PERFORMED USING THE 2020 CKD-EPI STUDY REFIT EQUATION WITHOUT THE RACE VARIABLE FOR THE IDMS-TRACEABLE CREATININE METHODS.https://jasn.asnjournals.org/content/22/A SN.0865752261 Laboratory - Coagulationon 1 0-19-2022 PT Coag (PPP) [Time] 24.2 s above high threshold 8.0 - 11.0 [facility] Work Phone: No Panel Informationon 04-16 2.1 1 above high threshold 1.0 - 1.2 [facility] Work Phone: PTINR - POCTon 04-16-2022 INR Coag (PPP) [Relative time] 2.1 {INR} High 1.0 - 1.2 [facility] Comment on above: Performed By: #### P SAS #### [address] [address] PT Coag (PPP) [Time] 24.2 s High 8.0 - 11.0 [facility] Comment on above: Performed By: #### P SAS #### [address] [address] Laboratory - Coagulationon 1 PT Coag (PPP) [Time] 19.7 s above high threshold 8.0 - 11.0 [facility] Work Phone: No Panel Informationon 04-01 1.7 1 above high threshold 1.0 - 1.2 [facility] Work Phone: PTINR - POCTon 04-01-2022 INR Coag (PPP) [Relative time] 1.7 {INR} High 1.0 - 1.2 [facility] Comment on above: Performed By: #### P SASC #### [address] [address] PT Coag (PPP) [Time] 19.7 s High 8.0 - 11.0 [facility] Comment on above: Performed By: #### P SASC #### [address] [address] Laboratory - Coagulationon 0 03-11-2022 PT Coag (PPP) [Time] 38.8 s above high threshold 8.0 - 11.0 [facility] Work Phone: No Panel Informationon 03-11 3.4 1 above high threshold 1.0 - 1.2 [facility] Work Phone: PTINR - SANAZTon 03-11-2022 INR Coag (PPP) [Relative time] 3.4 {INR} High 1.0 - 1.2 [facility] Comment on above: Performed By: #### P PTIN #### [facility] [address] [place] [id number] PT Coag (PPP) [Time] 38.8 s High 8.0 - 11.0 [facility] Comment on above: Performed By: #### P PTIN #### [facility] [address] [address] Office Visit (Internal Medic ine)on 01-08-2022 Follow-up visit Diagnoses/Problems Assessed Benign essential hypertension (401.1) (I10) DM2 (diabetes mellitus, type 2) (250.00) (E11.9) Hypercholesterolemia (272.0) (E78.00) Orders Benign essential hypertension Renew: Losartan Potassium 50 MG Oral Tablet; take 1 tablet by mouth twice a day Rx By: Neymar Xavier; Dispense: 0 Days ; #:60 Tablet; Refill: 11;For: Benign essential hypertension; CONSTANTINO = N; Verified Transmission to [id number]; Last Updated By: Chel Ha; 01/08/2022 1:54:09 PM DM2 (diabetes mellitus, type 2) Comprehensive Metabolic Panel; Status:Active - Retrospective By Protocol Authorization; Requested for:11May2022; Perform:Lab Services - Lab To Draw (Blood Test); Due:[id number]; Last Updated By:Regina Lane; 01/08/2022 2:37:39 PM;Ordered; For:DM2 (diabetes mellitus, type 2); Ordered By:Neymar aXvier; Hemoglobin A1C; Status:Active - Retrospective By Protocol Authorization; Requested for:11May2022; Perform:Lab Services - Lab To Draw (Blood Test); Due:19Aug2022; Last Updated By:Regina Lane; 01/08/2022 2:37:39 PM;Ordered; For:DM2 (diabetes mellitus, type 2); Ordered By:Neymar Xavier; Patient Discussion/Summary F/U 4 MO CMP HGA1C Provider Impressions MONITOR BP GOAL BP LOWER THAN 130/80 LOW SALT EXERCISE DAILY [address] HGA1C GOAL LESS THAN 7 LOSE WT EXERCISE DAILY MDM 1) COMPLEXITY: 1 OR MORE CHRONIC CONDITION WITH EXACERBATION, OR PROGRESSION OR SIDE EFFECT OF TREATMENT ADDRESSED 2)DATA: TESTS INTERPRETED AND OR ORDERED, TOOK INDEPENDENT HISTORY OR RECORDS REVIEWED 3)RISK: MODERATE RISK DUE TO NATURE OF MEDICAL CONDITIONS/COMORBIDITY OR MEDICATIONS ORDERED OR SURGICAL OR PROCEDURE REFERRAL, . Chief Complaint 4 MO F/U WITH LABS. History of Present IllnessHERE FOR F/U NO COMPLAINT Review of Systems Constitutional: not feeling poorly, no fever, no recent weight gain and no recent weight loss. Eyes: no blurred vision and no diplopia. ENT: no hearing loss, no tinnitus, no earache, no sore throat, no hoarseness and no swollen glands in the neck. Cardiovascular: no chest pain, no tightness or heavy pressure, no shortness of breath, no palpitations and no lower extremity edema. Respiratory: no cough, not coughing up sputum and no wheezing that is consistent with asthma. Gastrointestinal: no change in bowel habits, no diarrhea, no constipation, no bloody stools, no nausea, no vomiting, no abdominal pain, no signs and symptoms of ulcer disease, no issac colored stools and no intolerance to fatty foods. Genitourinary: no urinary frequency, no dysuria, no hematuria, no burning sensation during urination, urinary stream is not smaller and urinary stream does not start and stop. Musculoskeletal: no arthralgias, no joint stiffness, no muscle weakness, no back pain and no difficulty walking. Skin: no rashes, no change in skin color and pigmentation, no skin lesions and no skin lumps. Neurological: no headaches, no dizziness, no seizures, no tingling, no numbness, no signs and symptoms of stroke and no limb weakness. Psychiatric: no confusion, no memory lapses or loss, no depression and no sleep disturbances. Endocrine: no goiter, no thyroid disorder, no diabetes mellitus, no excessive thirst, no dry skin, no cold intolerance, no heat intolerance and no increased urinary frequency. Hematologic/Lymphatic: is not slow to heal, does not bleed easily, does not bruise easily, no thrombophlebitis, no anemia and no history of blood transfusion. All other systems have been reviewed and are negative for complaint. Active Problems Problems Benign essential hypertension (401.1) (I10) Chronic atrial fibrillation, unspecified (427.31) (I48.20) Diverticulosis (562.10) (K57.90) DM2 (diabetes mellitus, type 2) (250.00) (E11.9) History of colon polyps (V12.72) (Z86.010) Hypercholesterolemia (272.0) (E78.00) Hypertriglyceridemia (272.1) (E78.1) Low back pain radiating to right leg (724.2) (M54.50,M79.604) Medication management (V58.69) (Z79.899) Osteoarthritis, generalized (715.00) (M15.9) Psoriatic arthritis (696.0) (L40.50) Screening for AAA (abdominal aortic aneurysm) (V81.2) (Z13.6) Screening PSA (prostate specific antigen) (V76.44) (Z12.5) 1.78 Past Medical History Problems No pertinent past medical history (V49.89) (Z78.9) Surgical History Problems History of Colonoscopy Managed By: Neymar Xavier (Internal Medicine) DIVERTICULOSIS, H/O COLON POLYPS, REPEAT 3 YEARS History of Hip replacement OCTOBER 2006 History of Knee replacement B/L - 03/2007 Family History Mother Family history of malignant neoplasm of kidney (V16.51) (Z80.51) Father No pertinent family history Brother Family history of hypertension (V17.49) (Z82.49) Family history of lung cancer (V16.1) (Z80.1) Family history of myocardial infarction (V17.3) (Z82.49) Family history of type 2 diabetes mellitus (V18.0) (Z83.3) Social History Problems Denies alcohol (more content not included)... Normal [employer] Tobacco Screening.on 022 Adult depression screening assessment No [facility] Work Phone: Fall risk assessment a) No falls within the last year [facility] Work Phone: Tobacco use status [facility] b) No [facility] Work Phone: COMPREHENSIVE PANELon 2021 Albumin [Mass/Vol] 4.3 g/dL Normal 3.4 - 5.0 [facility] Comment on above: Performed By: #### C MP #### [address] [address] ALP [Catalytic activity/Vol] 49 U/L Normal 33 - 136 [facility] Comment on above: Performed By: #### C MP #### [address] [address] ALT [Catalytic activity/Vol] 17 U/L Normal 10 - 52 [facility] Comment on above: Result Comment: Arlette ents treated with Sulfasalazine may generate falsely decreased results for ALT. Performed By: #### C MP #### [address] [address] Anion gap [Moles/Vol] 11 mmol/L Normal 10 - 20 [facility] Comment on above: Performed By: #### C MP #### [address] [address] AST [Catalytic activity/Vol] 16 U/L Normal 9 - 39 [facility] Comment on above: Performed By: #### C MP #### [address] [address] Bilirubin [Mass/Vol] 0.7 mg/dL Normal 0.0 - 1.2 [facility] Comment on above: Performed By: #### C MP #### [address] [address] Calcium [Mass/Vol] 9.2 mg/dL Normal 8.6 - 10.3 [facility] Comment on above: Performed By: #### C MP #### [address] [address] Chloride [Moles/Vol] 104 mmol/L Normal 98 - 107 [facility] Comment on above: Performed By: #### C MP #### [address] [address] Creatinine [Mass/Vol] 0.81 mg/dL Normal 0.50 - 1.30 [facility] Comment on above: Performed By: #### C MP #### [address] [address] eGFR MALE >90 Normal >90 [facility] Comment on above: Result Comment: CALC ULATIONS OF ESTIMATED GFR ARE PERFORMED USING THE 2020 CKD-EPI STUDY REFIT EQUATION WITHOUT THE RACE VARIABLE FOR THE IDMS-TRACEABLE CREATININE METHODS. https://jasn.asnjournals.org/content/early//ASN.80903 [address] Performed By: #### C MP #### [address] [address] Glucose [Mass/Vol] 126 mg/dL High 74 - 99 [facility] Comment on above: Performed By: #### C MP #### [address] [address] HCO3 (Bld) [Moles/Vol] 29 mmol/L Normal 21 - 32 [facility] Comment on above: Performed By: #### C MP #### [address] [address] Potassium [Moles/Vol] 4.4 mmol/L Normal 3.5 - 5.3 [facility] Comment on above: Performed By: #### C MP #### [address] [address] Protein [Mass/Vol] 7.5 g/dL Normal 6.4 - 8.2 [facility] Comment on above: Performed By: #### C MP #### [address] [address] Sodium [Moles/Vol] 140 mmol/L Normal 136 - 145 [facility] Comment on above: Performed By: #### C MP #### [address] [address] Urea nitrogen [Mass/Vol] 12 mg/dL Normal 6 - 23 [facility] Comment on above: Performed By: #### C MP #### [address] [address] HEMOGLOBIN A1Con 01-01-2022 Glucose [Mass/Vol] 160 mg/dL Normal [facility] Comment on above: Performed By: #### H BA1E #### [address] [address] HbA1c (Bld) [Mass fraction] 7.2 % Abnormal [facility] Comment on above: Result Comment: Diag nosis of Diabetes-Adults Non-Diabetic: < or = 5.6% Increased risk for developing diabetes: 5.7-6.4% Diagnostic of diabetes: > or = 6.5% . Monitoring of Diabetes Age (y) Therapeutic Goal (%) Adults: >18 <7.0 Pediatrics: 13-18 <7.5 7-12 <8.0 0- 6 7.5-8.5 [employer]. Diabetes Care 33(S1), Jun 2009. Performed By: #### H BA1E #### [address] [address] Hemoglobin A1Con 01-01-2022 Glucose [Mass/Vol] 160 mg/dL [facility] Work Phone: HbA1c (Bld) [Mass fraction] 7.2 % Abnormal [facility] Work Phone: Comment on above: Diagnosis of Diabete s-Adults Non-Diabetic: < or = 5.6% Increased risk for developing diabetes: 5.7-6.4% Diagnostic of diabetes: > or = 6.5%. Monitoring of Diabetes Age (y) Therapeutic Goal (%) Adults: >18 <7.0 Pediatrics: 13-18 <7.5 7-12 <8.0 0- 6 7.5-8.5 [employer]. Diabetes Care 33(S1), Jun 2009. LIPID PANEL (CORONARY RISK 2 )on 01-01-2022 Cholesterol [Mass/Vol] 154 mg/dL Normal 0 - 199 [facility] Comment on above: Result Comment: . AGE DESIRABLE BORDERLINE HIGH HIGH 0-19 Y 0 - 169 170 - 199 >/= 200 20-24 Y 0 - 189 190 - 224 >/= 225 >24 Y 0 - 199 200 - 239 >/= 240 All ranges are based on fasting samples. Specific therapeutic targets will vary based on patient-specific cardiac risk. . Pediatric guidelines reference:Pediatrics 2011, 128(S5). Adult guidelines reference: NCEP ATPIII Guidelines, GISELLE 2001, 258:2486-97 . Venipuncture immediately after or during the administration of Metamizole may lead to falsely low results. Testing should be performed immediately prior to Metamizole dosing. Performed By: #### L IPID #### [address] [address] Cholesterol in HDL [Mass/Vol] 43.0 mg/dL Normal [facility] Comment on above: Result Comment: . AGE VERY LOW LOW NORMAL HIGH 0-19 Y < 35 < 40 40-45 ---- 20-24 Y ---- < 40 >45 ---- >24 Y ---- < 40 40-60 >60 . Performed By: #### L IPID #### [address] [address] Cholesterol in LDL [Mass/Vol] 68 mg/dL Normal 0 - 99 [facility] Comment on above: Result Comment: . NEAR BORD AGE DESIRABLE OPTIMAL HIGH HIGH VERY HIGH 0-19 Y 0 - 109 --- 110-129 >/= 130 ---- 20-24 Y 0 - 119 --- 120-159 >/= 160 ---- >24 Y 0 - 99 100-129 130-159 160-189 >/=190 . Performed By: #### L IPID #### [address] [address] Cholesterol in VLDL [Mass/Vol] 43 mg/dL High 0 - 40 [facility] Comment on above: Performed By: #### L IPID #### [address] [address] Cholesterol.total/Chol esterol in HDL [Mass ratio] 3.6 {ratio} Normal [facility] Comment on above: Result Comment: REF VALUES DESIRABLE < 3.4 HIGH RISK > 5.0 Performed By: #### L IPID #### [address] [address] NON-HDL CHOLESTEROL 111 mg/dL Normal [facility] Comment on above: Result Comment: AGE DESIRABLE BORDERLINE HIGH HIGH VERY HIGH 0-19 Y 0 - 119 120 - 144 >/= 145 >/= 160 20-24 Y 0 - 149 150 - 189 >/= 190 ---- >24 Y 30 MG/DL ABOVE LDL CHOLESTEROL GOAL . Performed By: #### L IPID #### [address] [address] Triglyceride [Mass/Vol] 217 mg/dL High 0 - 149 [facility] Comment on above: Result Comment: . AGE DESIRABLE BORDERLINE HIGH HIGH VERY HIGH 0 D-90 D 19 - 174 ---- ---- ---- 91 D- 9 Y 0 - 74 75 - 99 >/= 100 ---- 10-19 Y 0 - 89 90 - 129 >/= 130 ---- 20-24 Y 0 - 114 115 - 149 >/= 150 ---- >24 Y 0 - 149 150 - 199 200- 499 >/= 500 . Venipuncture immediately after or during the administration of Metamizole may lead to falsely low results. Testing should be performed immediately prior to Metamizole dosing. Performed By: #### L IPID #### [address] [address] Laboratory - Chemistry and C hemistry - challengeon 01-01-2022 Albumin BCP dye [Mass/Vol] 4.3 g/dL 3.4 - 5.0 [facility] Work Phone: ALP [Catalytic activity/Vol] 49 U/L 33 - 136 [facility] Work Phone: ALT With P-5'-P [Catalytic activity/Vol] 17 U/L 10 - 52 [facility] Work Phone: Comment on above: Patients treated wit h Sulfasalazine may generate falsely decreased results for ALT. Anion gap [Moles/Vol] 11 mmol/L 10 - 20 [facility] Internal Medicine Work Phone: AST With P-5'-P [Catalytic activity/Vol] 16 U/L 9 - 39 [facility] Work Phone: Bilirubin [Mass/Vol] 0.7 mg/dL 0.0 - 1.2 [facility] Work Phone: Calcium [Mass/Vol] 9.2 mg/dL 8.6 - 10.3 [facility] Work Phone: Chloride [Moles/Vol] 104 mmol/L 98 - 107 [facility] Work Phone: CO2 [Moles/Vol] 29 mmol/L 21 - 32 [facility] Internal Medicine Work Phone: Creatinine [Mass/Vol] 0.81 mg/dL See Below [facility] Work Phone: Comment on above: Reference Range: 0.5 0 - 1.30 Glucose [Mass/Vol] 126 mg/dL above high threshold 74 - 99 [facility] Work Phone: Potassium [Moles/Vol] 4.4 mmol/L 3.5 - 5.3 [facility] Work Phone: Protein [Mass/Vol] 7.5 g/dL 6.4 - 8.2 [facility] Work Phone: Sodium [Moles/Vol] 140 mmol/L 136 - 145 [facility] Work Phone: Urea nitrogen [Mass/Vol] 12 mg/dL 6 - 23 [facility] Work Phone: Lipid Panelon 01-01-2022 Cholesterol [Mass/Vol] 154 mg/dL 0 - 199 [facility] Work Phone: Comment on above: . AGE DESIRABLE BORD ORLY HIGH HIGH 0-19 Y 0 - 169 170 - 199 >/= 200 20-24 Y 0 - 189 190 - 224 >/= 225 >24 Y 0 - 199 200 - 239 >/= 240 All ranges are based on fasting samples. Specific therapeutic targets will vary based on patient-specific cardiac risk.. Pediatric guidelines reference:Pediatrics 2011, 128(S5). Adult guidelines reference: NCEP ATPIII Guidelines, GISELLE 2001, 258:2486-97. Venipuncture immediately after or during the administration of Metamizole may lead to falsely low results. Testing should be performed immediately prior to Metamizole dosing. Cholesterol in HDL [Mass/Vol] 43.0 mg/dL [facility] Work Phone: Comment on above: . AGE VERY LOW LOW N ORMAL HIGH 0-19 Y < 35 < 40 40-45 ---- 20-24 Y ---- < 40 >45 ---- >24 Y ---- < 40 40-60 >60. Cholesterol in LDL [Mass/Vol] 68 mg/dL 0 - 99 [facility] Work Phone: Comment on above: . NEAR BORD AGE KEVIN RABLE OPTIMAL HIGH HIGH VERY HIGH 0-19 Y 0 - 109 --- 110-129 >/= 130 ---- 20-24 Y 0 - 119 --- 120-159 >/= 160 ---- >24 Y 0 - 99 100-129 130-159 160-189 >/=190. Cholesterol non HDL [Mass/Vol] 111 mg/dL [facility] Work Phone: Comment on above: AGE DESIRABLE BORDER LINE HIGH HIGH VERY HIGH 0-19 Y 0 - 119 120 - 144 >/= 145 >/= 160 20-24 Y 0 - 149 150 - 189 >/= 190 ---- >24 Y 30 MG/DL ABOVE LDL CHOLESTEROL GOAL. Cholesterol.total/Chol esterol in HDL [Mass ratio] 3.6 {ratio} [facility] Work Phone: Comment on above: REF VALUESDESIRABLE < 3.4HIGH RISK > 5.0 Triglyceride [Mass/Vol] 217 mg/dL above high threshold 0 - 149 [facility] Work Phone: Comment on above: . AGE DESIRABLE BORD ORLY HIGH HIGH VERY HIGH 0 D-90 D 19 - 174 ---- ---- ----91 D- 9 Y 0 - 74 75 - 99 >/= 100 ---- 10-19 Y 0 - 89 90 - 129 >/= 130 ---- 20-24 Y 0 - 114 115 - 149 >/= 150 ---- >24 Y 0 - 149 150 - 199 200- 499 >/= 500. Venipuncture immediately after or during the administration of Metamizole may lead to falsely low results. Testing should be performed immediately prior to Metamizole dosing. Lipid Panel 43 mg/dL above high threshold 0 - 40 [facility] Work Phone: No Panel Informationon 01-01 >90 >90 [facility] Work Phone: Comment on above: CALCULATIONS OF STEVE MATED GFR ARE PERFORMED USING THE 2020 CKD-EPI STUDY REFIT EQUATION WITHOUT THE RACE VARIABLE FOR THE IDMS-TRACEABLE CREATININE METHODS.https://jasn.asnjournals.org/content/early/A SN.2245531179 PROSTATE SPEC.AG,SCREENon PROSTATE SPEC.AG,SCREEN 2.06 ng/mL Normal 0.00 - 4.00 [facility] Comment on above: Result Comment: The FDA requires that the method used for PSA assay be reported to the physician. Values obtained with different assay methods must not be used interchangeably. This test was performed at [facility] using the [employer] PSA assay is a two-site immunoenzymatic sandwich assay. The assay is approved for measurement of prostate-specific antigen (PSA)in serum and may be used in conjunction with a digital rectal examination in men 50 years and older as an aid in detection of prostate cancer. 4-Enwps-fahixvhkp inhibitors (e.g. Proscar, Finasteride, Avodart, Dutasteride and Yessy) for the treatment of BPH have been shown to lower PSA levels by an average of 50% after 6 months of treatment. Performed By: #### P [facility] #### [place] [address] Prostate Spec.Ag, Screenon 0 01-01-2022 Prostate specific Ag [Mass/Vol] 2.06 ng/mL See Below [facility] Work Phone: Comment on above: Reference Range: 0.0 0 - 4.00The FDA requires that the method used for PSA assay be reported to the physician. Values obtained with different assay methods must not be used interchangeably. This testwas performed at [facility] using the [employer] PSA assay is a two-site immunoenzymatic sandwich assay. The assay is approved for measurement of prostate-specific antigen (PSA)in serum and may be used in conjunction with a digital rectal examination in men 50 years and older as an aid in detection of prostate cancer.1-Kxfao-enwqjieis inhibitors (e.g. Proscar, Finasteride, Avodart, Dutasteride and Yessy) for the treatment of BPH have been shown to lower PSA levels by an average of 50% after 6 months of treatment. SEDIMENTATION RATE, ERYTHROC YTEon 01-01-2022 SEDIMENTATION RATE, ERYTHROCYTE 31 mm/h High 0 - 20 [facility] Comment on above: Performed By: #### E SRWS #### [facility] [address] [place] [address] Sedimentation Rate, Erythroc yteon 01-01-2022 ESR (Bld) [Velocity] 31 mm/h above high threshold 0 - 20 [facility] Work Phone: Laboratory - Coagulationon 0 12-23-2021 PT Coag (PPP) [Time] 29.9 s above high threshold 8.0 - 11.0 [facility] Work Phone: No Panel Informationon 12-23 2.6 1 above high threshold 1.0 - 1.2 [facility] Work Phone: Laboratory - Coagulationon 0 11-18-2021 PT Coag (PPP) [Time] 31.8 s above high threshold 8.0 - 11.0 [facility] Work Phone: No Panel Informationon 11-18 2.8 1 above high threshold 1.0 - 1.2 [facility] Work Phone: Laboratory - Coagulationon 0 10-21-2021 PT Coag (PPP) [Time] 25.0 s above high threshold 8.0 - 11.0 [facility] Work Phone: No Panel Informationon 10-21 2.2 1 above high threshold 1.0 - 1.2 [facility] Work Phone: Laboratory - Coagulationon 0 10-14-2021 PT Coag (PPP) [Time] 14.1 s above high threshold 8.0 - 11.0 -[facility] Internal Medicine Work Phone: No Panel Informationon 10-14 1.2 1 1.0 - 1.2 -[facility] Work Phone: Colonoscopyon 10-10-2021 Colonoscopy PATIENTNAME Patient Name: Hattie Valderrama EXAMDATE Procedure Date: 10/10/2021 10:42 AM PATIENTID PATIENTACCOUNTNUM PATIENTDOB Date of : 1945 ADMITTYPE Admit Type: Outpatient PATIENTROOM Site: [facility] 1 ETHNICITY Ethnicity: Not or RACE Race: White PROVDR Attending MD: Neymar Xavier MD ENDOPROCEDURENAME Procedure: Colonoscopy INDICATION Indications: High risk colon cancer surveillance: Personal history of colonic polyps PRIMARYPROVIDER Providers: Neymar Xavier MD (Doctor), Chloe Kessler RN (Nurse), Jennifer Ramos, Rice Farmer EDREFPROVIDER Referring: Neymar Xavier MD CURRENT_MEDS Medicines: Midazolam 2.5 mg IV, Meperidine 50 mg IV COMPLIC Complications: No immediate complications. ENDOPROCEDURETEXT Procedure: Pre-Anesthesia Assessment: - Prior to the procedure, a History and Physical was performed, and patient medications and allergies were reviewed. The patient's tolerance of previous anesthesia was also reviewed. The risks and benefits of the procedure and the sedation options and risks were discussed with the patient. All questions were answered, and informed consent was obtained. Prior Anticoagulants: The patient has taken Coumadin (warfarin), last dose was 5 days prior to procedure. ASA Grade Assessment: III - A patient with severe systemic disease. After reviewing the risks and benefits, the patient was deemed in satisfactory condition to undergo the procedure. After I obtained informed consent, the scope was passed under direct vision. Throughout the procedure, the patient's blood pressure, pulse, and oxygen saturations were monitored continuously. The adult colonoscope was introduced through the anus and advanced to the cecum, identified by the appendiceal orifice, IC valve and transillumination. The colonoscopy was performed without difficulty. The patient tolerated the procedure well. The quality of the bowel preparation was good. The ileocecal valve, appendiceal orifice, and rectum were photographed. The entire colon was examined. FINDING Findings: Many small and large-mouthed diverticula were found in the entire colon. There was no evidence of diverticular bleeding. The entire examined colon appeared normal on direct and retroflexion views. SEDATION Moderate Sedation: Moderate (conscious) sedation was administered by the endoscopy nurse and supervised by the endoscopist. The following parameters were monitored: oxygen saturation, heart rate, blood pressure, and response to care. Total physician intraservice time was 17 minutes. EBL Estimated Blood Loss: Estimated blood loss: none. IMPRESS Impression: - Severe diverticulosis in the entire examined colon. There was no evidence of diverticular bleeding. - The entire examined colon is normal on direct and retroflexion views. - No specimens collected. ENDORECOMMENDATION Recommendation: - Patient has a contact number available for emergencies. The signs and symptoms of potential delayed complications were discussed with the patient. Return to normal activities tomorrow. Written discharge instructions were provided to the patient. - Resume previous diet. - Continue present medications. - Await pathology results. - Repeat colonoscopy in 5 years for surveillance. - Return to primary care physician as previously scheduled. CPT_CODES Procedure Code(s): --- Professional --- 64446, Colonoscopy, flexible; diagnostic, including collection of specimen(s) by brushing or washing, when performed (separate procedure) G0500, Moderate sedation services provided by the same physician or other qualified health point of care technician performing a gastrointestinal endoscopic service that sedation supports, requiring the presence of an independent trained observer to assist in the monitoring of the patient's level of consciousness and physiological status; initial 15 minutes of intra-service time; patient age 5 years or older (additional time may be reported with [address], as appropriate) ICD_CODES Diagnosis Code(s): --- Professional --- Z12.11, Encounter for screening for malignant neoplasm of colon Z86.010, Personal history of colonic polyps K57.30, Diverticulosis of large intestine without perforation or abscess without bleeding CODINGSTMT CPT copyright 2020 [employer]. All rights reserved. The codes documented in this report are preliminary and upon test lead review may be revised to meet current compliance requirements. ATTDRPART Attending Participation: I personally performed the entire procedure. SIGNATURENAME Neymar Xavier MD SIGNATUREDATE 10/10/2021 11:06:16 AM SIGNATUREONFILEIND This report has been signed electronically. NUMADDENDA Number of Addenda: 0 INITIATEDON Note Initiated On: 10/10/2021 10:4 (more content not included)... Normal [facility] No Panel Informationon 10-10 [email or web address]} -[facility] Medicine Work Phone: CORONAVIRUS 2019, SCREEN ASY MPTOMATICon 10-08-2021 SARS-CoV-2 (COVID-19) RNA JEREMI+probe Ql (Unsp spec) Not detected Normal Not Detected [facility] Comment on above: Result Comment: . This assay is designed to detect the N, ORF1ab and/or S genes of SARS-CoV-2 via nucleic acid amplification. A Negative (NOT DETECTED) result does not preclude 2019-nCoV infection since the adequacy of sample collection and/or low viral burden may result in presence of viral nucleic acids below the clinical sensitivity of this test method. Negative (NOT DETECTED) result should not be used as the sole basis for treatment or other patient management decisions. Rather negative results should be combined with clinical observations, patient history, and epidemiological information to make patient management decisions. Fact sheet for providers: https://www.fda.gov/media/796398/download Fact sheet for patients: https://www.fda.gov/media/429512/download This test has received FDA Emergency Use Authorization (EUA) and has been verified by [facility] ([facility]). This test is only authorized for the duration of time that circumstances exist to justify the authorization of the emergency use of in vitro diagnostic tests for the detection of SARS-CoV-2 virus and/or diagnosis of COVID-19 infection under section 564(b)(1) of the Act, 21 U.S.C. 360bbb-3(b)(1), unless the authorization is terminated or revoked sooner. [facility] is certified under CLIA-88 as qualified to perform high complexity testing. Testing is performed in the [facility] laboratories located at [id number] [place] [address]. Performed By: #### C OVSC #### [facility] [address] [facility] [place] [address] Covid 19 Resultson 2 SARS-CoV-2 (COVID-19) RNA JEREMI+probe Ql (Unsp spec) NEGATIVE COVID-19 Test Coronaviruses are common world-wide and are the cause of many common colds. SARS-COV2 is a new coronavirus that began circulating worldwide in 2019 so we are calling it COVID-19. It has been estimated that four out of five patients with COVID-19 will recover at home without the need for medical attention. Symptoms of COVID-19 may include cough, fever, shortness of breath, loss of taste or smell and other flu-like symptoms including chills, sore muscles, sore throat, and headache. Severe illness is more common in older people and people with other health problems such as high blood pressure, obesity, and immune system problems. If the test is positive, you have COVID-19. You will be contacted by the ordering physicians office and instructed to remain on home isolation, in accordance with CDC guidelines. You may also be contacted by the [facility] to see if any of your close contacts may have been exposed to the virus and need to quarantine. If the test is negative, you likely do not have COVID-19 at this time, but you still may have a different illness that can spread to other people (like Influenza, or the Flu) and could still be at risk for getting COVID-19. We recommend that you stay away from other people to limit the spread of illness until your symptoms are improving and you are fever-free for 24 hours without the use of fever lowering medications such as acetaminophen or ibuprofen. No test is 100% accurate so if you are still concerned you may have COVID-19, talk to your doctor about the need to continue to stay away from others. Medicines Unless your provider told you not to use the following: Acetaminophen (Tylenol and others) is generally safe. Anti-inflammatory medications, such as Ibuprofen (Advil or Motrin) or Naproxen (Aleve) can also be used. Lwwu-eos-lxvmeob cough and cold medicines can be used according to the instructions on the package. Some henv-lgy-mutuvby medicines also contain acetaminophen. Make sure you are not taking more than your recommended dose. For those not hospitalized, there is no specific treatment available for this illness. Antibiotics do not treat Coronaviruses. Follow-Up Follow up with your doctor by scheduling a virtual visit or consider follow-up at one of our urgent care fever clinics. If you are having difficulty breathing, or are very weak and having difficulty standing, this is a medical emergency. Call 911 or have someone take you to the nearest emergency room immediately. If possible, wear a facemask. Additional guidance from the CDC for patients who tested POSITIVE for COVID-19 How to isolate: Isolate yourself in a specific room at home and limit your contact with others. Use a separate bathroom from other members of the household, when possible. Leave home only to get essential medical care. Do not go to work, school or public areas. Avoid using public transportation, ride-sharing, or taxis. Restrict contact with pets and other animals. If you must care for your pet or be around animals while you are sick, wash your hands before and after your interaction and wear a facemask. Make sure that shared spaces in the home have good airflow, such as by an air conditioner or an opened window, weather permitting. Personal Hygiene Procedures: Wear a face mask when in the same room as other people or pets. If a face mask interferes with your breathing, others should wear a mask when sharing space with you. Frequent hand-washing: wash your hands with soap and water for at least 20 seconds. If soap and water are not available, use alcohol-based hand architectural design professor. Avoid touching your eyes, nose, and mouth with unwashed hands. Household Hygiene Procedures: Avoid sharing personal household items such as dishes, glassware, cups, eating utensils, towels or bedding with other people or pets in your home. After use, these items should be washed with soap and hot water. Disinfect all high-touch surfaces every day with antibacterial cleaning solutions such as Lysol wipes, bleach, cleansers, etc. High-touch surfaces include tabletops, doorknobs, bathroom fixtures, toilets, phones, keyboards, tablets and bedside tables. Immediately clean any surfaces that may have blood, poop or body fluids on them, using antibacterial cleaning solutions such as Lysol wipes, bleach, cleansers, etc. If clothing or bedding come into contact with blood, poop or body fluids, they should be washed immediately. Follow the directions on the laundry detergent and clothing labels but hot water is recommended when possible. Stopping home isolation precautions: If possible, consult your doctor before stopping home isolation precautions. According to the CDC, you can discontinue home isolation precautions when you have met both of these criteria: Your fever and respiratory symptoms have been gone for 24 donovan (more content not included)... Normal [facility] CORONAVIRUS 2019, SCREEN ASY MPTOMATICon 10-07-2021 Lab Specimen Source Nasal, Nasopharyngeal Normal [facility] Comment on above: Performed By: #### C OVSC #### [facility] [address] [place] [address] Coronavirus 2019 RNA by PCR, Screening Asymptomticon 10-07-2021 Coronavirus 2019 RNA by PCR, Screening Asymptomtic Not detected Normal See Below [facility] Work Phone: Comment on above: SOURCE: Nasal, Nasop haryngealReference Range: Not Detected.This assay is designed to detect the N, ORF1ab and/or S genes of SARS-CoV-2 via nucleic acid amplification. A Negative (NOT DETECTED) result does not preclude 2019-nCoV infection since the adequacy of sample collection and/or low viral burden may result in presence of viral nucleic acids below the clinical sensitivity of this test method. Negative (NOT DETECTED) result should not be used as the sole basis for treatment or other patient management decisions. Rather negative results should be combined with clinical observations, patient history, and epidemiological information to make patient management decisions.Fact sheet for providers: https://www.fda.gov/media/459907/downloadFact sheet for patients: https://www.fda.gov/media/384833/downloadThis test has received FDA Emergency Use Authorization (EUA) and has been verified by [facility] ([facility]). This test is only authorized for the duration of time that circumstances exist to justify the authorization of the emergency use of in vitro diagnostic tests for the detection of SARS-CoV-2 virus and/or diagnosis of COVID-19 infection under section 564(b)(1) of the Act, 21 U.S.C. 360bbb-3(b)(1), unless the authorization is terminated or revoked sooner. [facility] is certified under CLIA-88 as qualified to perform high complexity testing. Testing is performed in the [facility] laboratories located at [address] [place] [address]. Laboratory - Coagulationon 0 09-30-2021 PT Coag (PPP) [Time] 32.5 s above high threshold 8.0 - 11.0 [facility] Work Phone: No Panel Informationon 09-30 2.9 1 above high threshold 1.0 - 1.2 [facility] Work Phone: Laboratory - Coagulationon 0 09-10-2021 PT Coag (PPP) [Time] 25.1 s above high threshold 8.0 - 11.0 [facility] Work Phone: Medicare Annual Wellness Vis iton 09-10-2021 Medicare Annual Wellness Visit *Chief Complaint MEDICARE WELLNESS WITH LABS PT HAS BLOOD SUGAR AND BLOOD PRESSURE LOG WITH HIM History of Present Illness The patient is being seen for the subsequent annual wellness visit. Past Medical, Surgical and Family History: reviewed and updated in chart. Medications and Supplements: Review of all medications by a prescribing practitioner or clinical pharmacist (such as prescriptions, OTCs, herbal therapies and supplements) documented in the medical record. No, the patient is not using opioids. Patient Self Assessment of Health Status: fair. Tobacco use: Non-User Alcohol use: Non-User Illicit drug use: Non-User Current diet: unhealthy diet. Exercise Frequency: the patient does not exercise. Depression/Suicide Screening: . During the past 2 weeks, the patient has not felt down, depressed or hopeless. During the past 2 weeks, the patient has not felt little interest or pleasure in doing things. Hearing Impairment: Patient has slight hearing impairment. Cognitive Impairment: No cognitive impairment observed. Bathing: performs independently. Dressing: performs independently. Walking: performs independently. Managing Finances: performs independently. Shopping: performs independently. Managing Medications: performs independently. Housework / Basic Home Maintenance: performs independently. Falls Risk Screening:. HATTIE has not fallen in the last 6 months. Home safety risk factors: none. Advance directives:. Advance Care Planning discussed and documented in the medical record, patient did not wish or was not able to name a surrogate decision maker or provide an advance care plan. Additional Information: BRING A COPY. HERE FOR F/U NO COMPLAINT WELLNESS EXAM Review of Systems Constitutional: not feeling poorly, no fever, no recent weight gain and no recent weight loss. Eyes: no blurred vision and no diplopia. ENT: no hearing loss, no tinnitus, no earache, no sore throat, no hoarseness and no swollen glands in the neck. Cardiovascular: no chest pain, no tightness or heavy pressure, no shortness of breath, no palpitations and no lower extremity edema. Respiratory: no cough, not coughing up sputum and no wheezing that is consistent with asthma. Gastrointestinal: no change in bowel habits, no diarrhea, no constipation, no bloody stools, no nausea, no vomiting, no abdominal pain, no signs and symptoms of ulcer disease, no issac colored stools and no intolerance to fatty foods. Genitourinary: no urinary frequency, no dysuria, no hematuria, no burning sensation during urination, urinary stream is not smaller and urinary stream does not start and stop. Musculoskeletal: no arthralgias, no joint stiffness, no muscle weakness, no back pain and no difficulty walking. Skin: no rashes, no change in skin color and pigmentation, no skin lesions and no skin lumps. Neurological: no headaches, no dizziness, no seizures, no tingling, no numbness, no signs and symptoms of stroke and no limb weakness. Psychiatric: no confusion, no memory lapses or loss, no depression and no sleep disturbances. Endocrine: no goiter, no thyroid disorder, no diabetes mellitus, no excessive thirst, no dry skin, no cold intolerance, no heat intolerance and no increased urinary frequency. Hematologic/Lymphatic: is not slow to heal, does not bleed easily, does not bruise easily, no thrombophlebitis, no anemia and no history of blood transfusion. All other systems have been reviewed and are negative for complaint. *Active Problems Benign essential hypertension (401.1) (I10) Chronic atrial fibrillation, unspecified (427.31) (I48.20) Diverticulosis (562.10) (K57.90) DM2 (diabetes mellitus, type 2) (250.00) (E11.9) Hypercholesterolemia (272.0) (E78.00) Hypertriglyceridemia (272.1) (E78.1) Low back pain radiating to right leg (724.2) (M54.50,M79.604) Medication management (V58.69) (Z79.899) Osteoarthritis, generalized (715.00) (M15.9) Polyp of colon (211.3) (K63.5) Psoriatic arthritis (696.0) (L40.50) Screening for AAA (abdominal aortic aneurysm) (V81.2) (Z13.6) Screening PSA (prostate specific antigen) (V76.44) (Z12.5) 1.78 Surgical History History of Colonoscopy Managed By: Neymar Xavier (Internal Medicine) DIVERTICULOSIS, H/O COLON POLYPS, REPEAT 3 YEARS History of Hip replacement OCTOBER 2006 History of Knee replacement B/L - 03/2007 Family History Family history of malignant neoplasm of kidney (V16.51) (Z80.51) No pertinent family history Family history of hypertension (V17.49) (Z82.49) Family history of lung cancer (V16.1) (Z80.1) Family history of myocardial infarction (V17.3) (Z82.49) Family history of type 2 diabetes mellitus (V18.0) (Z83.3) Social History Denies alcohol consumption (V49.89) (Z78.9) Does not use illicit drugs (V49.89) (Z78.9) Former smoker (V15.82) (Z87.891) Patient has healthcare proxy and living will (V49.89) (Z78.9) *Allergies Humira Allergy; Rash; Updated By: (more content not included)... Normal [facility] No Panel Informationon 09-10 2.2 1 above high threshold 1.0 - 1.2 [facility] Medicine Work Phone: Tobacco Screening.on 022 Fall risk assessment a) No falls within the last year [facility] Work Phone: Tobacco use status CPHS b) No [facility] Work Phone: Coronavirus 2019 RNA by PCR, Screening Asymptomticon 09-02-2021 Coronavirus 2019 RNA by PCR, Screening Asymptomtic Not detected Normal See Below [facility] Work Phone: Comment on above: SOURCE: Nasal, Nasop haryngealReference Range: Not Detected.This assay is designed to detect the N, ORF1ab and/or S genes of SARS-CoV-2 via nucleic acid amplification. A Negative (NOT DETECTED) result does not preclude 2019-nCoV infection since the adequacy of sample collection and/or low viral burden may result in presence of viral nucleic acids below the clinical sensitivity of this test method. Negative (NOT DETECTED) result should not be used as the sole basis for treatment or other patient management decisions. Rather negative results should be combined with clinical observations, patient history, and epidemiological information to make patient management decisions.Fact sheet for providers: https://www.fda.gov/media/472577/downloadFact sheet for patients: https://www.fda.gov/media/352515/downloadThis test has received FDA Emergency Use Authorization (EUA) and has been verified by [facility] ([facility]). This test is only authorized for the duration of time that circumstances exist to justify the authorization of the emergency use of in vitro diagnostic tests for the detection of SARS-CoV-2 virus and/or diagnosis of COVID-19 infection under section 564(b)(1) of the Act, 21 U.S.C. 360bbb-3(b)(1), unless the authorization is terminated or revoked sooner. [facility] is certified under CLIA-88 as qualified to perform high complexity testing. Testing is performed in the [facility] laboratories located at [address] [place] [address]. Hemoglobin A1Con 09-02-2021 Glucose [Mass/Vol] 151 mg/dL [facility] Work Phone: HbA1c (Bld) [Mass fraction] 6.9 % Abnormal [facility] Internal [facility] Work Phone: Comment on above: Diagnosis of Diabete s-Adults Non-Diabetic: < or = 5.6% Increased risk for developing diabetes: 5.7-6.4% Diagnostic of diabetes: > or = 6.5%. Monitoring of Diabetes Age (y) Therapeutic Goal (%) Adults: >18 <7.0 Pediatrics: 13-18 <7.5 7-12 <8.0 0- 6 7.5-8.5 [employer]. Diabetes Care 33(S1), Jun 2009. Laboratory - Chemistry and C hemistry - challengeon 09-02-2021 Albumin BCP dye [Mass/Vol] 4.3 g/dL 3.4 - 5.0 [facility] Work Phone: ALP [Catalytic activity/Vol] 52 U/L 33 - 136 [facility] Work Phone: ALT With P-5'-P [Catalytic activity/Vol] 17 U/L 10 - 52 [facility] Work Phone: Comment on above: Patients treated wit h Sulfasalazine may generate falsely decreased results for ALT. Anion gap [Moles/Vol] 10 mmol/L 10 - 20 [facility] Work Phone: AST With P-5'-P [Catalytic activity/Vol] 18 U/L 9 - 39 [facility] Work Phone: Bilirubin [Mass/Vol] 0.5 mg/dL 0.0 - 1.2 [facility] Work Phone: Calcium [Mass/Vol] 9.3 mg/dL 8.6 - 10.3 [facility] Internal [facility] Work Phone: Chloride [Moles/Vol] 102 mmol/L 98 - 107 [facility] Work Phone: CO2 [Moles/Vol] 31 mmol/L 21 - 32 [facility] Medicine Work Phone: Creatinine [Mass/Vol] 0.83 mg/dL See Below [facility] Work Phone: Comment on above: Reference Range: 0.5 0 - 1.30 Glucose [Mass/Vol] 122 mg/dL above high threshold 74 - 99 [facility] Work Phone: Potassium [Moles/Vol] 4.4 mmol/L 3.5 - 5.3 [facility] Work Phone: Protein [Mass/Vol] 7.5 g/dL 6.4 - 8.2 [facility] Work Phone: Sodium [Moles/Vol] 139 mmol/L 136 - 145 [facility] Work Phone: Urea nitrogen [Mass/Vol] 14 mg/dL 6 - 23 [facility] Work Phone: No Panel Informationon 09-02 >90 >90 [facility] Work Phone: Comment on above: CALCULATIONS OF STEVE MATED GFR ARE PERFORMED USING THE 2020 CKD-EPI STUDY REFIT EQUATION WITHOUT THE RACE VARIABLE FOR THE IDMS-TRACEABLE CREATININE METHODS.https://jasn.asnjournals.org/content/early/A SN.7300671609 Laboratory - Coagulationon 0 08-21-2021 PT Coag (PPP) [Time] 37.7 s above high threshold 8.0 - 11.0 [facility] Work Phone: No Panel Informationon 08-21 3.3 1 above high threshold 1.0 - 1.2 [facility] Work Phone: Laboratory - Coagulationon 0 08-07-2021 PT Coag (PPP) [Time] 38.7 s above high threshold 8.0 - 11.0 [facility] Work Phone: No Panel Informationon 08-07 3.4 1 above high threshold 1.0 - 1.2 [facility] Work Phone: Laboratory - Coagulationon 0 07-09-2021 PT Coag (PPP) [Time] 30.9 s above high threshold 8.0 - 11.0 [facility] Work Phone: No Panel Informationon 07-09 2.7 1 above high threshold 1.0 - 1.2 [facility] Work Phone: Laboratory - Coagulationon 1 08-12-2020 PT Coag (PPP) [Time] 21.8 s above high threshold 8.0 - 11.0 [facility] Work Phone: No Panel Informationon 06-11 1.9 1 above high threshold 1.0 - 1.2 [facility] Work Phone: Laboratory - Coagulationon 1 07-14-2020 PT Coag (PPP) [Time] 35.5 s above high threshold 8.0 - 11.0 [facility] Work Phone: No Panel Informationon 05-14 3.1 1 above high threshold 1.0 - 1.2 [facility] Work Phone: Tobacco Screening.on 021 Fall risk assessment a) No falls within the last year [facility] Work Phone: Tobacco use status CPHS b) No [facility] Work Phone: Hemoglobin A1Con 05-07-2021 Glucose [Mass/Vol] 160 mg/dL [facility] Work Phone: HbA1c (Bld) [Mass fraction] 7.2 % Abnormal [facility] Work Phone: Comment on above: Diagnosis of Diabete s-Adults Non-Diabetic: < or = 5.6% Increased risk for developing diabetes: 5.7-6.4% Diagnostic of diabetes: > or = 6.5%. Monitoring of Diabetes Age (y) Therapeutic Goal (%) Adults: >18 <7.0 Pediatrics: 13-18 <7.5 7-12 <8.0 0- 6 7.5-8.5 [employer]. Diabetes Care 33(S1), Jun 2009. Laboratory - Chemistry and C hemistry - challengeon 05-07-2021 Albumin BCP dye [Mass/Vol] 4.1 g/dL 3.4 - 5.0 [facility] Work Phone: [phone] ALP [Catalytic activity/Vol] 59 U/L 33 - 136 [facility] Work Phone: [phone] ALT With P-5'-P [Catalytic activity/Vol] 21 U/L 10 - 52 [facility] Work Phone: [phone] Comment on above: Patients treated wit h Sulfasalazine may generate falsely decreased results for ALT. Anion gap [Moles/Vol] 12 mmol/L 10 - 20 [facility] Work Phone: [phone] AST With P-5'-P [Catalytic activity/Vol] 26 U/L 9 - 39 [facility] Work Phone: [phone] Bilirubin [Mass/Vol] 0.7 mg/dL 0.0 - 1.2 [facility] Work Phone: [phone] Calcium [Mass/Vol] 9.6 mg/dL 8.6 - 10.3 [facility] Work Phone: [phone] Chloride [Moles/Vol] 100 mmol/L 98 - 107 [facility] Work Phone: [phone] CO2 [Moles/Vol] 29 mmol/L 21 - 32 [facility] Internal [facility] Work Phone: [phone] Creatinine [Mass/Vol] 0.81 mg/dL See Below [facility] Work Phone: Comment on above: Reference Range: 0.5 0 - 1.30 Glucose [Mass/Vol] 120 mg/dL above high threshold 74 - 99 [facility] Work Phone: [phone] Potassium [Moles/Vol] 4.4 mmol/L 3.5 - 5.3 [facility] Work Phone: [phone] Protein [Mass/Vol] 7.6 g/dL 6.4 - 8.2 [facility] Work Phone: [phone] Sodium [Moles/Vol] 137 mmol/L 136 - 145 [facility] Work Phone: Urea nitrogen [Mass/Vol] 14 mg/dL 6 - 23 [facility] Work Phone: No Panel Informationon 05-07 >60 >60 [facility] Work Phone: Comment on above: CALCULATIONS OF STEVE MATED GFR ARE PERFORMED USING THE MDRD STUDY EQUATION FOR THE IDMS-TRACEABLE CREATININE METHODS. CLIN CHEM 2007;53:766-72 Laboratory - Coagulationon 1 - PT Coag (PPP) [Time] 28.3 s above high threshold 8.0 - 11.0 [facility] Work Phone: No Panel Informationon 04-09 2.5 1 above high threshold 1.0 - 1.2 [facility] Work Phone: Laboratory - Coagulationon 0 03-12-2021 PT Coag (PPP) [Time] 29.4 s above high threshold 8.0 - 11.0 [facility] Work Phone: No Panel Informationon 03-12 2.6 1 above high threshold 1.0 - 1.2 [facility] Work Phone: Laboratory - Coagulationon 0 02-12-2021 PT Coag (PPP) [Time] 30.8 s above high threshold 8.0 - 11.0 [facility] Work Phone: No Panel Informationon 02-12 2.7 1 above high threshold 1.0 - 1.2 [facility] Work Phone: Laboratory - Coagulationon 0 01-22-2021 PT Coag (PPP) [Time] 31.5 s above high threshold 8.0 - 11.0 [facility] Work Phone: No Panel Informationon 01-22 2.8 1 above high threshold 1.0 - 1.2 [facility] Work Phone: Laboratory - Coagulationon 0 01-08-2021 PT Coag (PPP) [Time] 38.1 s above high threshold 8.0 - 11.0 [facility] Work Phone: No Panel Informationon 01-08 3.4 1 above high threshold 1.0 - 1.2 [facility] Work Phone: Tobacco Screening.on 021 Fall risk assessment a) No falls within the last year [facility] Work Phone: Tobacco use status CPHS b) No [facility] Work Phone: Hemoglobin A1Con 01-01-2021 Glucose [Mass/Vol] 148 mg/dL [facility] Work Phone: HbA1c (Bld) [Mass fraction] 6.8 % [facility] Work Phone: Comment on above: Diagnosis of Diabete s-Adults Non-Diabetic: < or = 5.6% Increased risk for developing diabetes: 5.7-6.4% Diagnostic of diabetes: > or = 6.5%. Monitoring of Diabetes Age (y) Therapeutic Goal (%) Adults: >18 <7.0 Pediatrics: 13-18 <7.5 7-12 <8.0 0- 6 7.5-8.5 [employer]. Diabetes Care 33(S1), Jun 2009. Laboratory - Chemistry and C hemistry - challengeon 01-01-2021 Albumin BCP dye [Mass/Vol] 4.1 g/dL 3.4 - 5.0 [facility] Work Phone: ALP [Catalytic activity/Vol] 49 U/L 33 - 136 [facility] Work Phone: ALT With P-5'-P [Catalytic activity/Vol] 15 U/L 10 - 52 [facility] Work Phone: Comment on above: Patients treated wit h Sulfasalazine may generate falsely decreased results for ALT. Anion gap [Moles/Vol] 8 mmol/L below low threshold 10 - 20 [facility] Work Phone: AST With P-5'-P [Catalytic activity/Vol] 17 U/L 9 - 39 [facility] Work Phone: Bilirubin [Mass/Vol] 0.7 mg/dL 0.0 - 1.2 [facility] Work Phone: Calcium [Mass/Vol] 8.8 mg/dL 8.6 - 10.3 [facility] Work Phone: Chloride [Moles/Vol] 106 mmol/L 98 - 107 [facility] Work Phone: CO2 [Moles/Vol] 29 mmol/L 21 - 32 [facility] Internal [facility] Work Phone: Creatinine [Mass/Vol] 0.84 mg/dL See Below [facility] Work Phone: Comment on above: Reference Range: 0.5 0 - 1.30 Glucose [Mass/Vol] 115 mg/dL above high threshold 74 - 99 [facility] Work Phone: Potassium [Moles/Vol] 4.0 mmol/L 3.5 - 5.3 [facility] Work Phone: Protein [Mass/Vol] 6.9 g/dL 6.4 - 8.2 [facility] Work Phone: Sodium [Moles/Vol] 139 mmol/L 136 - 145 [facility] Work Phone: Urea nitrogen [Mass/Vol] 18 mg/dL 6 - 23 [facility] Work Phone: Lipid Panelon 01-01-2021 Cholesterol [Mass/Vol] 125 mg/dL 0 - 199 [facility] Work Phone: Comment on above: . AGE DESIRABLE BORD ORLY HIGH HIGH 0-19 Y 0 - 169 170 - 199 >/= 200 20-24 Y 0 - 189 190 - 224 >/= 225 >24 Y 0 - 199 200 - 239 >/= 240 All ranges are based on fasting samples. Specific therapeutic targets will vary based on patient-specific cardiac risk.. Pediatric guidelines reference:Pediatrics 2011, 128(S5). Adult guidelines reference: NCEP ATPIII Guidelines, GISELLE 2001, 258:1426-97. Venipuncture immediately after or during the administration of Metamizole may lead to falsely low results. Testing should be performed immediately prior to Metamizole dosing. Cholesterol in HDL [Mass/Vol] 46.0 mg/dL [facility] Work Phone: Comment on above: . AGE VERY LOW LOW N ORMAL HIGH 0-19 Y < 35 < 40 40-45 ---- 20-24 Y ---- < 40 >45 ---- >24 Y ---- < 40 40-60 >60. Cholesterol in LDL [Mass/Vol] 54 mg/dL 0 - 99 [facility] Work Phone: Comment on above: . NEAR BORD AGE KEVIN RABLE OPTIMAL HIGH HIGH VERY HIGH 0-19 Y 0 - 109 --- 110-129 >/= 130 ---- 20-24 Y 0 - 119 --- 120-159 >/= 160 ---- >24 Y 0 - 99 100-129 130-159 160-189 >/=190. Cholesterol.total/Chol esterol in HDL [Mass ratio] 2.7 {ratio} [facility] Work Phone: Comment on above: REF VALUESDESIRABLE < 3.4HIGH RISK > 5.0 Triglyceride [Mass/Vol] 124 mg/dL 0 - 149 [facility] Work Phone: Comment on above: . AGE DESIRABLE BORD ORLY HIGH HIGH VERY HIGH 0 D-90 D 19 - 174 ---- ---- ----91 D- 9 Y 0 - 74 75 - 99 >/= 100 ---- 10-19 Y 0 - 89 90 - 129 >/= 130 ---- 20-24 Y 0 - 114 115 - 149 >/= 150 ---- >24 Y 0 - 149 150 - 199 200- 499 >/= 500. Venipuncture immediately after or during the administration of Metamizole may lead to falsely low results. Testing should be performed immediately prior to Metamizole dosing. Lipid Panel 25 mg/dL 0 - 40 [facility] Work Phone: No Panel Informationon 01-01 >60 >60 [facility] Work Phone: Comment on above: CALCULATIONS OF STEVE MATED GFR ARE PERFORMED USING THE MDRD STUDY EQUATION FOR THE IDMS-TRACEABLE CREATININE METHODS. CLIN CHEM 2007;53:766-72 Laboratory - Coagulationon 0 12-24-2020 PT Coag (PPP) [Time] 41.7 s above high threshold 8.0 - 11.0 [facility] Work Phone: No Panel Informationon 12-24 3.7 1 above high threshold 1.0 - 1.2 [facility] Work Phone: Laboratory - Coagulationon 0 11-14-2020 PT Coag (PPP) [Time] 30.1 s above high threshold 8.0 - 11.0 [facility] Work Phone: No Panel Informationon 11-14 2.6 1 above high threshold 1.0 - 1.2 [facility] Work Phone: Hematologyon 07-02-2020 INR Coag (Bld) [Relative time] 2.8 {INR} above high threshold 1.0 - 1.2 [facility] Work Phone: PT Coag (PPP) [Time] 32.0 {sec} above high threshold 8.0 - 11.0 [facility] Work Phone: Hematologyon 06-04-2020 INR Coag (Bld) [Relative time] 2.2 {INR} above high threshold 1.0 - 1.2 [facility] Work Phone: PT Coag (PPP) [Time] 25.4 {sec} above high threshold 8.0 - 11.0 [facility] Work Phone: Hematologyon 05-07-2020 INR Coag (Bld) [Relative time] 2.1 {INR} above high threshold 1.0 - 1.2 [facility] Work Phone: PT Coag (PPP) [Time] 23.9 {sec} above high threshold 8.0 - 11.0 [facility] Work Phone: Otheron 05-07-2020 1-Hydroxymidazolam Confirm (U) [Mass/Vol] <25 Cutoff <25 [facility] Work Phone: 1-Lbdgwpiyhs-5,5-Dimet hyl-3,3-Diphenylpyrrol idine (EDDP) Confirm (U) [Mass/Vol] <25 Cutoff <25 [facility] Work Phone: Comment on above: The performance lorenzo acteristics of the Methadone Confirmation, Urine has been validated by the individual laboratory site where testing is performed. It has not been cleared or approved by the FDA. However the FDA has determined that such clearance or approval is not necessary. Our Laboratory is certified under the Clinical Laboratory Improvement Amendments of 1988 (CLIA) as qualified to perform high complexity clinical laboratory testing. 6-Monoacetylmorphine (6-INES) Confirm (U) [Mass/Vol] <25 Cutoff <25 [facility] Work Phone: 7-Aminoclonazepam Confirm (U) [Mass/Vol] <25 Cutoff <25 [facility] Work Phone: Alpha hydroxyalprazolam Confirm (U) [Mass/Vol] <25 Cutoff <25 [facility] Work Phone: Alprazolam Confirm (U) [Mass/Vol] <25 Cutoff <25 [facility] Work Phone: Amphetamines Screen Ql (U) Negative NEGATIVE [facility] Work Phone: Comment on above: CUTOFF LEVEL: 500 NG /ML Cross-reactivity has been reported with high concentrations of the following drugs: buproprion, chloroquine, chlorpromazine, ephedrine, mephentermine, fenfluramine, phentermine, phenylpropanolamine, pseudoephedrine, and propranolol. Benzoylecgonine Screen Ql (U) Negative NEGATIVE [facility] Work Phone: Comment on above: CUTOFF LEVEL: 150 NG /ML Chlordiazepoxide Confirm (U) [Mass/Vol] <25 Cutoff <25 [facility] Work Phone: Clonazepam Confirm (U) [Mass/Vol] <25 Cutoff <25 -[facility] Work Phone: [phone] Codeine Confirm (U) [Mass/Vol] <50 Cutoff <50 -[facility] Work Phone: [phone] Creatinine (Body fld) [Mass/Vol] 141.4 mg/dL [facility] Work Phone: [phone] Comment on above: A urine creatinine r esult >= 20 mg/dL is considered valid without suspicion of dilution. Samples with results below this range will automatically reflex to specific gravity testing to verify specimen integrity. Diazepam Confirm (U) [Mass/Vol] <25 Cutoff <25 -[facility] Work Phone: [phone] Fentanyl Confirm (U) [Mass/Vol] <2.5 Cutoff<2.5 [facility] Work Phone: [phone] Hydrocodone Confirm (U) [Mass/Vol] <25 Cutoff <25 -[facility] Work Phone: [phone] Hydromorphone Confirm (U) [Mass/Vol] <25 Cutoff <25 [facility] Work Phone: [phone] Lorazepam Confirm (U) [Mass/Vol] <25 Cutoff <25 -[facility] Work Phone: Methadone Confirm (U) [Mass/Vol] <25 Cutoff <25 [facility] Work Phone: Midazolam Confirm (U) [Mass/Vol] <25 Cutoff <25 -[facility] Work Phone: Morphine Confirm (U) [Mass/Vol] <50 Cutoff <50 -[facility] [facility] Work Phone: Nordiazepam Confirm (U) [Mass/Vol] <25 Cutoff <25 [facility] Work Phone: Norfentanyl Confirm (U) [Mass/Vol] <2.5 Cutoff<2.5 [facility] Work Phone: Comment on above: The performance lorenzo acteristics of the Fentanyl Confirmation, Urine has been validated by the individual laboratory site where testing is performed. It has not been cleared or approved by the FDA. However the FDA has determined that such clearance or approval is not necessary. Our Laboratory is certified under the Clinical Laboratory Improvement Amendments of 1988 (CLIA) as qualified to perform high complexity clinical laboratory testing. Norhydrocodone Confirm (U) [Mass/Vol] <25 Cutoff <25 [facility] Work Phone: Noroxycodone Confirm (U) [Mass/Vol] <25 Cutoff <25 [facility] Work Phone: Nortramadol (U) [Mass/Vol] <50 Cutoff <50 [facility] Work Phone: Comment on above: The performance lorenzo acteristics of the Tramadol Confirmation, Urine has been validated by the individual laboratory site where testing is performed. It has not been cleared or approved by the FDA. However the FDA has determined that such clearance or approval is not necessary. Our Laboratory is certified under the Clinical Laboratory Improvement Amendments of 1988 (CLIA) as qualified to perform high complexity clinical laboratory testing. Oxazepam Confirm (U) [Mass/Vol] <25 Cutoff <25 [facility] Work Phone: Oxycodone Confirm (U) [Mass/Vol] <25 Cutoff <25 [facility] Work Phone: Oxymorphone Confirm (U) [Mass/Vol] <25 Cutoff <25 [facility] Work Phone: Comment on above: The performance lorenzo acteristics of the Opiate Confirmation, Urine has been validated by the individual laboratory site where testing is performed. It has not been cleared or approved by the FDA. However the FDA has determined that such clearance or approval is not necessary. Our Laboratory is certified under the Clinical Laboratory Improvement Amendments of 1988 (CLIA) as qualified to perform high complexity clinical laboratory testing. Temazepam Confirm (U) [Mass/Vol] <25 Cutoff <25 [facility] Work Phone: Comment on above: The performance lorenzo acteristics of the Benzodiazepine Confirmation, Urine has been validated by the individual laboratory site where testing is performed. It has not been cleared or approved by the FDA. However the FDA has determined that such clearance or approval is not necessary. Our Laboratory is certified under the Clinical Laboratory Improvement Amendments of 1988 (CLIA) as qualified to perform high complexity clinical laboratory testing. Tramadol Confirm (U) [Mass/Vol] <50 Cutoff <50 [facility] Work Phone: Zolpidem (U) [Mass/Vol] <25 Cutoff <25 [facility] Work Phone: <25 Cutoff <25 [facility] Work Phone: Comment on above: The performance lorenzo acteristics of the Zolpidem Confirmation, Urine has been validated by the individual laboratory site where testing is performed. It has not been cleared or approved by the FDA. However the FDA has determined that such clearance or approval is not necessary. Our Laboratory is certified under the Clinical Laboratory Improvement Amendments of 1988 (CLIA) as qualified to perform high complexity clinical laboratory testing. SEE BELOW [facility] Work Phone: Comment on above: Drug screen results are presumptive and should not be used to assess compliance with prescribed medication. Definitive confirmatory drug testing has been added to this sample for any positive screen result and will be reported separately. .Toxicology screening results are reported qualitatively. The concentration must be greater than or equal to the cutoff to be reported as positive. The concentration at which the screening test can detect an individual drug or metabolite varies. The absence of expected drug(s) and/or drug metabolite(s) may indicate non-compliance, inappropriate timing of specimen collection relative to drug administration, poor drug absorption, diluted/adulterated urine, or limitations of testing. For medical purposes only; not valid for forensic use. .Interpretive questions should be directed to the laboratory medical directors. Urinalysison 05-07-2020 Barbiturates Screen Ql (U) Negative NEGATIVE [facility] Work Phone: Comment on above: CUTOFF LEVEL: 200 NG /ML Cannabinoids Screen Ql (U) Negative NEGATIVE [facility] Work Phone: Comment on above: CUTOFF LEVEL: 50 NG/ ML Phencyclidine Ql (U) Negative NEGATIVE [facility] Work Phone: Comment on above: CUTOFF LEVEL: 25 NG/ ML Cross-reactivity has been reported with dextromethorphan. Complete Blood Count + Diffe [place] 04-30-2020 Basophils (Bld) [#/Vol] 0.10 {x10E9/L} See Below [facility] Work Phone: Comment on above: Reference Range: 0.0 0 - 0.10 Basophils/100 WBC (Bld) 0.7 % 0.0 - 2.0 [facility] Work Phone: Eosinophils (Bld) [#/Vol] 0.10 {x10E9/L} See Below [facility] Work Phone: Comment on above: Reference Range: 0.0 0 - 0.40 Eosinophils/100 WBC (Bld) 1.3 % 0.0 - 6.0 [facility] Work Phone: Erythrocyte distribution width (RBC) [Ratio] 13.5 % See Below [facility] Work Phone: Comment on above: Reference Range: 11. 5 - 14.5 Hematocrit (Bld) [Volume fraction] 39.5 % below low threshold See Below [facility] Work Phone: Comment on above: Reference Range: 41. 0 - 52.0 Hemoglobin (Bld) [Mass/Vol] 13.4 g/dL below low threshold See Below [facility] Work Phone: Comment on above: Reference Range: 13. 5 - 17.5 Lymphocytes (Bld) [#/Vol] 2.00 {x10E9/L} See Below [facility] Work Phone: Comment on above: Reference Range: 0.8 0 - 3.00 Lymphocytes/100 WBC (Bld) 25.3 % See Below [facility] Work Phone: Comment on above: Reference Range: 13. 0 - 44.0 MCHC (RBC) [Mass/Vol] 33.9 g/dL See Below [facility] Work Phone: Comment on above: Reference Range: 32. 0 - 36.0 MCV (RBC) [Entitic vol] 95 fL 80 - 100 [facility] Work Phone: [phone] Monocytes (Bld) [#/Vol] 0.60 {x10E9/L} See Below [facility] Work Phone: Comment on above: Reference Range: 0.0 5 - 0.80 Monocytes/100 WBC (Bld) 8.1 % 2.0 - 10.0 [facility] Work Phone: [phone] Neutrophils (Bld) [#/Vol] 5.00 {x10E9/L} See Below [facility] Work Phone: Comment on above: Reference Range: 1.6 0 - 5.50 Percent differential counts (%) should be interpreted in the context of the absolute cell counts (cells/L). Neutrophils/100 WBC (Bld) 64.6 % See Below [facility] Work Phone: Comment on above: Reference Range: 40. 0 - 80.0 Platelets (Bld) [#/Vol] 262 {x10E9/L} 150 - 450 [facility] Work Phone: [phone] RBC (Bld) [#/Vol] 4.18 {x10E12/L} below low threshold See Below [facility] Work Phone: Comment on above: Reference Range: 4.5 0 - 5.90 WBC (Bld) [#/Vol] 7.8 {x10E9/L} 4.4 - 11.3 [facility] Work Phone: Hemoglobin A1Con 04-30-2020 HbA1c (Bld) [Mass fraction] 6.7 % [facility] Medicine Work Phone: Comment on above: Diagnosis of Diabete s-Adults Non-Diabetic: < or = 5.6% Increased risk for developing diabetes: 5.7-6.4% Diagnostic of diabetes: > or = 6.5%. Monitoring of Diabetes Age (y) Therapeutic Goal (%) Adults: >18 <7.0 Pediatrics: 13-18 <7.5 7-12 <8.0 0- 6 7.5-8.5 [employer]. Diabetes Care 33(S1), Jun 2009. HbA1c (Bld) [Mass fraction] 146 {MG/DL} [facility] Work Phone: Metabolic Panelon 04-30-2020 ALP [Catalytic activity/Vol] 48 U/L 33 - 136 [facility] Work Phone: Anion gap [Moles/Vol] 10 mmol/L 10 - 20 [facility] Work Phone: Bilirubin [Mass/Vol] 0.7 mg/dL 0.0 - 1.2 [facility] Work Phone: Calcium [Mass/Vol] 9.2 mg/dL 8.6 - 10.3 [facility] Work Phone: Chloride [Moles/Vol] 103 mmol/L 98 - 107 [facility] Work Phone: CO2 [Moles/Vol] 29 mmol/L 21 - 32 [facility] Medicine Work Phone: Creatinine [Mass/Vol] 0.89 mg/dL See Below [facility] Work Phone: Comment on above: Reference Range: 0.5 0 - 1.30 Glucose [Mass/Vol] 119 mg/dL above high threshold 74 - 99 [facility] Medicine Work Phone: Potassium [Moles/Vol] 4.2 mmol/L 3.5 - 5.3 [facility] Work Phone: Protein [Mass/Vol] 7.2 g/dL 6.4 - 8.2 [facility] Work Phone: Sodium [Moles/Vol] 138 mmol/L 136 - 145 [facility] Work Phone: Urea nitrogen [Mass/Vol] 12 mg/dL 6 - 23 [facility] Work Phone: Otheron 04-30-2020 Albumin BCP dye [Mass/Vol] 4.4 g/dL 3.4 - 5.0 [facility] Work Phone: ALT With P-5'-P [Catalytic activity/Vol] 20 U/L 10 - 52 [facility] Work Phone: Comment on above: Patients treated wit h Sulfasalazine may generate falsely decreased results for ALT. AST With P-5'-P [Catalytic activity/Vol] 21 U/L 9 - 39 [facility] Work Phone: >60 >60 [facility] Work Phone: Comment on above: CALCULATIONS OF STEVE MATED GFR ARE PERFORMED USING THE MDRD STUDY EQUATION FOR THE IDMS-TRACEABLE CREATININE METHODS. CLIN CHEM 2007;53:766-72 Sedimentation Rate, Erythroc yteon 04-30-2020 ESR (Bld) [Velocity] 21 mm/h above high threshold 0 - 20 [facility] Work Phone: Hematologyon 04-09-2020 INR Coag (Bld) [Relative time] 1.7 {INR} above high threshold 1.0 - 1.2 [facility] Work Phone: PT Coag (PPP) [Time] 20.1 {sec} above high threshold 8.0 - 11.0 [facility] Work Phone: Hemoglobin A1Con 01-30-2020 HbA1c (Bld) [Mass fraction] 6.8 % [facility] Work Phone: Comment on above: Diagnosis of Diabete s-Adults Non-Diabetic: < or = 5.6% Increased risk for developing diabetes: 5.7-6.4% Diagnostic of diabetes: > or = 6.5%. Monitoring of Diabetes Age (y) Therapeutic Goal (%) Adults: >18 <7.0 Pediatrics: 13-18 <7.5 7-12 <8.0 0- 6 7.5-8.5 [employer]. Diabetes Care 33(S1), Jun 2009. HbA1c (Bld) [Mass fraction] 148 {MG/DL} [facility] Work Phone: Metabolic Panelon 01-30-2020 ALP [Catalytic activity/Vol] 49 U/L 33 - 136 [facility] Work Phone: Anion gap [Moles/Vol] 10 mmol/L 10 - 20 [facility] Work Phone: Bilirubin [Mass/Vol] 0.7 mg/dL 0.0 - 1.2 [facility] Work Phone: Calcium [Mass/Vol] 9.1 mg/dL 8.6 - 10.3 [facility] Work Phone: Chloride [Moles/Vol] 103 mmol/L 98 - 107 [facility] Work Phone: CO2 [Moles/Vol] 29 mmol/L 21 - 32 [facility] Medicine Work Phone: Creatinine [Mass/Vol] 0.87 mg/dL See Below [facility] Work Phone: Comment on above: Reference Range: 0.5 0 - 1.30 Glucose [Mass/Vol] 123 mg/dL above high threshold 74 - 99 [facility] Work Phone: Potassium [Moles/Vol] 4.3 mmol/L 3.5 - 5.3 [facility] Work Phone: Comment on above: MILD HEMOLYSIS DETEC JOSE. The result may be falsely elevated due tohemolysis or other interferents. Clinical correlation is recommended.Repeat testing may be considered. Protein [Mass/Vol] 7.1 g/dL 6.4 - 8.2 [facility] Work Phone: Sodium [Moles/Vol] 138 mmol/L 136 - 145 [facility] Internal [facility] Work Phone: Urea nitrogen [Mass/Vol] 14 mg/dL 6 - 23 [facility] Work Phone: Otheron 01-30-2020 Albumin BCP dye [Mass/Vol] 4.2 g/dL 3.4 - 5.0 [facility] Work Phone: ALT With P-5'-P [Catalytic activity/Vol] 19 U/L 10 - 52 [facility] Work Phone: Comment on above: Patients treated wit h Sulfasalazine may generate falsely decreased results for ALT. AST With P-5'-P [Catalytic activity/Vol] 21 U/L 9 - 39 [facility] Work Phone: Comment on above: MILD HEMOLYSIS DETEC JOSE. The result may be falsely elevated due tohemolysis or other interferents. Clinical correlation is recommended.Repeat testing may be considered. >60 >60 [facility] Work Phone: Comment on above: CALCULATIONS OF STEVE MATED GFR ARE PERFORMED USING THE MDRD STUDY EQUATION FOR THE IDMS-TRACEABLE CREATININE METHODS. CLIN CHEM 2007;53:766-72 Hematologyon 01-16-2020 INR Coag (Bld) [Relative time] 2.4 {INR} above high threshold 1.0 - 1.2 [facility] Work Phone: PT Coag (PPP) [Time] 27.8 {sec} above high threshold 8.0 - 11.0 [facility] Work Phone: Hematologyon 10-24-2019 INR Coag (Bld) [Relative time] 2.4 {INR} above high threshold 1.0 - 1.2 [facility] Work Phone: PT Coag (PPP) [Time] 28.0 {sec} above high threshold 8.0 - 11.0 [facility] Work Phone: Hemoglobin A1Con 10-24-2019 HbA1c (Bld) [Mass fraction] 146 {MG/DL} [facility] Work Phone: HbA1c (Bld) [Mass fraction] 6.7 % [facility] Work Phone: Comment on above: Diagnosis of Diabete s-Adults Non-Diabetic: < or = 5.6% Increased risk for developing diabetes: 5.7-6.4% Diagnostic of diabetes: > or = 6.5%. Monitoring of Diabetes Age (y) Therapeutic Goal (%) Adults: >18 <7.0 Pediatrics: 13-18 <7.5 7-12 <8.0 0- 6 7.5-8.5 [employer]. Diabetes Care 33(S1), Jun 2009. Lipid Panelon 10-24-2019 Cholesterol [Mass/Vol] 140 mg/dL 0 - 199 [facility] Work Phone: Comment on above: . AGE DESIRABLE BORD ORLY HIGH HIGH 0-19 Y 0 - 169 170 - 199 >/= 200 20-24 Y 0 - 189 190 - 224 >/= 225 >24 Y 0 - 199 200 - 239 >/= 240 All ranges are based on fasting samples. Specific therapeutic targets will vary based on patient-specific cardiac risk.. Pediatric guidelines reference:Pediatrics 2011, 128(S5). Adult guidelines reference: NCEP ATPIII Guidelines, GISELLE 2001, 258:2486-97. Venipuncture immediately after or during the administration of Metamizole may lead to falsely low results. Testing should be performed immediately prior to Metamizole dosing. Cholesterol in HDL [Mass/Vol] 40.0 mg/dL [facility] Work Phone: Comment on above: . AGE VERY LOW LOW N ORMAL HIGH 0-19 Y < 35 < 40 40-45 ---- 20-24 Y ---- < 40 >45 ---- >24 Y ---- < 40 40-60 >60. Cholesterol in LDL [Mass/Vol] 70 mg/dL 0 - 99 [facility] Work Phone: Comment on above: . NEAR BORD AGE KEVIN RABLE OPTIMAL HIGH HIGH VERY HIGH 0-19 Y 0 - 109 --- 110-129 >/= 130 ---- 20-24 Y 0 - 119 --- 120-159 >/= 160 ---- >24 Y 0 - 99 100-129 130-159 160-189 >/=190. Cholesterol.total/Chol esterol in HDL [Mass ratio] 3.5 {ratio} [facility] Work Phone: Comment on above: REF VALUESDESIRABLE < 3.4HIGH RISK > 5.0 Triglyceride [Mass/Vol] 152 mg/dL above high threshold 0 - 149 [facility] Work Phone: Comment on above: . AGE DESIRABLE BORD ORLY HIGH HIGH VERY HIGH 0 D-90 D 19 - 174 ---- ---- ----91 D- 9 Y 0 - 74 75 - 99 >/= 100 ---- 10-19 Y 0 - 89 90 - 129 >/= 130 ---- 20-24 Y 0 - 114 115 - 149 >/= 150 ---- >24 Y 0 - 149 150 - 199 200- 499 >/= 500. Venipuncture immediately after or during the administration of Metamizole may lead to falsely low results. Testing should be performed immediately prior to Metamizole dosing. Lipid Panel 30 mg/dL 0 - 40 [facility] Work Phone: Metabolic Panelon 10-24-2019 ALP [Catalytic activity/Vol] 53 U/L 33 - 136 [facility] Work Phone: Anion gap [Moles/Vol] 10 mmol/L 10 - 20 [facility] Medicine Work Phone: Bilirubin [Mass/Vol] 0.7 mg/dL 0.0 - 1.2 [facility] Work Phone: Calcium [Mass/Vol] 9.6 mg/dL 8.6 - 10.3 [facility] Work Phone: Chloride [Moles/Vol] 102 mmol/L 98 - 107 [facility] Work Phone: CO2 [Moles/Vol] 31 mmol/L 21 - 32 [facility] Medicine Work Phone: Creatinine [Mass/Vol] 0.94 mg/dL See Below [facility] Work Phone: Comment on above: Reference Range: 0.5 0 - 1.30 Glucose [Mass/Vol] 119 mg/dL above high threshold 74 - 99 [facility] Work Phone: Potassium [Moles/Vol] 4.1 mmol/L 3.5 - 5.3 [facility] Work Phone: Protein [Mass/Vol] 7.9 g/dL 6.4 - 8.2 [facility] Work Phone: Sodium [Moles/Vol] 139 mmol/L 136 - 145 [facility] Work Phone: Urea nitrogen [Mass/Vol] 14 mg/dL 6 - 23 [facility] Work Phone: Otheron 10-24-2019 Albumin BCP dye [Mass/Vol] 4.6 g/dL 3.4 - 5.0 [facility] Work Phone: ALT With P-5'-P [Catalytic activity/Vol] 21 U/L 10 - 52 [facility] Work Phone: Comment on above: Patients treated wit h Sulfasalazine may generate falsely decreased results for ALT. AST With P-5'-P [Catalytic activity/Vol] 21 U/L 9 - 39 [facility] Work Phone: >60 >60 [facility] Work Phone: Comment on above: CALCULATIONS OF STEVE MATED GFR ARE PERFORMED USING THE MDRD STUDY EQUATION FOR THE IDMS-TRACEABLE CREATININE METHODS. CLIN CHEM 2007;53:766-72 Hematologyon 05-04-2019 INR Coag (Bld) [Relative time] 2.5 {INR} above high threshold 1.0 - 1.2 [facility] Work Phone: PT Coag (PPP) [Time] 29.0 {sec} above high threshold 8.0 - 11.0 [facility] Work Phone: Otheron 04-28-2019 1-Hydroxymidazolam Confirm (U) [Mass/Vol] <25 Cutoff <25 [facility] Work Phone: 6-Monoacetylmorphine (6-INES) Confirm (U) [Mass/Vol] <25 Cutoff <25 [facility] Work Phone: 7-Aminoclonazepam Confirm (U) [Mass/Vol] <25 Cutoff <25 [facility] Work Phone: Alpha hydroxyalprazolam Confirm (U) [Mass/Vol] <25 Cutoff <25 [facility] Work Phone: Alprazolam Confirm (U) [Mass/Vol] <25 Cutoff <25 [facility] Work Phone: Amphetamines Screen Ql (U) Negative NEGATIVE [facility] Work Phone: Comment on above: CUTOFF LEVEL: 500 NG /ML Cross-reactivity has been reported with high concentrations of the following drugs: buproprion, chloroquine, chlorpromazine, ephedrine, mephentermine, fenfluramine, phentermine, phenylpropanolamine, pseudoephedrine, and propranolol. Benzoylecgonine Screen Ql (U) Negative NEGATIVE [facility] Work Phone: Comment on above: CUTOFF LEVEL: 150 NG /ML Chlordiazepoxide Confirm (U) [Mass/Vol] <25 Cutoff <25 [facility] Work Phone: Clonazepam Confirm (U) [Mass/Vol] <25 Cutoff <25 [facility] Work Phone: Codeine Confirm (U) [Mass/Vol] <25 Cutoff <25 [facility] Work Phone: Diazepam Confirm (U) [Mass/Vol] <25 Cutoff <25 [facility] Work Phone: Hydrocodone Confirm (U) [Mass/Vol] <25 Cutoff <25 [facility] Work Phone: Hydromorphone Confirm (U) [Mass/Vol] <25 Cutoff <25 [facility] Work Phone: Lorazepam Confirm (U) [Mass/Vol] <25 Cutoff <25 [facility] Work Phone: Methadone Screen Ql (U) Negative NEGATIVE [facility] Work Phone: Comment on above: CUTOFF LEVEL: 150 NG /ML The metabolite C-[id number]-gdayyitlqsufyg (LAAM) is not detected by this method in concentrations that would be found in the urine of patients on LAAM therapy. Midazolam Confirm (U) [Mass/Vol] <25 Cutoff <25 [facility] Internal [facility] Work Phone: Morphine Confirm (U) [Mass/Vol] <25 Cutoff <25 [facility] Work Phone: Nordiazepam Confirm (U) [Mass/Vol] <25 Cutoff <25 [facility] Work Phone: Norhydrocodone Confirm (U) [Mass/Vol] <25 Cutoff <25 [facility] Work Phone: Noroxycodone Confirm (U) [Mass/Vol] <25 Cutoff <25 [facility] Work Phone: Opiates Screen Ql (U) Negative NEGATIVE [facility] Work Phone: Comment on above: CUTOFF LEVEL: 300 NG /ML The opiate screen does not detect fentanyl, meperidine, or tramadol. Oxycodone is not consistently detected (refer to Oxycodone Screen, Urine result).Opiate/Oxycodone Confirmatory testing has been ordered and will be reported separately. Although the screening tests provide rapid results; the confirmatory tests provide the most sensitive and specific assessment of drug presence or absence in the urine. Oxazepam Confirm (U) [Mass/Vol] <25 Cutoff <25 [facility] Work Phone: Oxycodone Confirm (U) [Mass/Vol] <25 Cutoff <25 [facility] Work Phone: Oxymorphone Confirm (U) [Mass/Vol] <25 Cutoff <25 [facility] Work Phone: Comment on above: The performance lorenzo acteristics of the Opiate Confirmation, Urine has been validated by the individual laboratory site where testing is performed. It has not been cleared or approved by the FDA. However the FDA has determined that such clearance or approval is not necessary. Our Laboratory is certified under the Clinical Laboratory Improvement Amendments of 1988 (CLIA) as qualified to perform high complexity clinical laboratory testing. Temazepam Confirm (U) [Mass/Vol] <25 Cutoff <25 [facility] Work Phone: Comment on above: The performance lorenzo acteristics of the Benzodiazepine Confirmation, Urine has been validated by the individual laboratory site where testing is performed. It has not been cleared or approved by the FDA. However the FDA has determined that such clearance or approval is not necessary. Our Laboratory is certified under the Clinical Laboratory Improvement Amendments of 1988 (CLIA) as qualified to perform high complexity clinical laboratory testing. SEE BELOW [facility] Work Phone: Comment on above: Drug screen results are presumptive and should not be used to assess compliance with prescribed medication. Definitive confirmatory drug testing has been added to this sample for any positive screen result and will be reported separately. .Toxicology screening results are reported qualitatively. The concentration must be greater than or equal to the cutoff to be reported as positive. The concentration at which the screening test can detect an individual drug or metabolite varies. The absence of expected drug(s) and/or drug metabolite(s) may indicate non-compliance, inappropriate timing of specimen collection relative to drug administration, poor drug absorption, diluted/adulterated urine, or limitations of testing. For medical purposes only; not valid for forensic use. .Interpretive questions should be directed to the laboratory medical directors. Urinalysison 04-28-2019 Barbiturates Screen Ql (U) Negative NEGATIVE [facility] Work Phone: Comment on above: CUTOFF LEVEL: 200 NG /ML Benzodiazepines Ql (U) Negative NEGATIVE [facility] Work Phone: Comment on above: CUTOFF LEVEL: 200 NG /MLBenzodiazepine Confirmatory testing has been ordered and will be reported separately. Although the benzodiazepine screening test provides rapid results; the confirmatory test provide the most sensitive and specific assessment of drug presence or absence in the urine. Cannabinoids Screen Ql (U) Negative NEGATIVE [facility] Work Phone: Comment on above: CUTOFF LEVEL: 50 NG/ ML Phencyclidine Ql (U) Negative NEGATIVE [facility] Work Phone: Comment on above: CUTOFF LEVEL: 25 NG/ ML Cross-reactivity has been reported with dextromethorphan. PT/INR POC Orderon 9 INR Coag (Bld) [Relative time] Collected Normal [facility] Comment on above: Performed By: #### 8 [id number] #### JANES POC Subsection [address] [place], [place] [id number] PT/INR Capillaryon 9 INR Coag (Bld) [Relative time] 2.6 {INR} High 1.0-1.2 [facility] Comment on above: Result Comment: Sour ce Capillary Performed By: #### 8 [id number] #### JANES POC Subsection [address] [place] [address] PT POC 29.0 second(s) High 8.0-11.0 [facility] Comment on above: Performed By: #### 8 [id number] #### JANES POC Subsection [address] [place], [place] [address] CMPon 02-23-2019 Albumin [Mass/Vol] 4.3 g/dL Normal 3.4-5.0 [facility] Comment on above: Performed By: #### 8 [id number] #### JANES POC Subsection [address] [place] [address] 50726 Albumin/Globulin [Mass ratio] 1.5 {ratio} Normal 1.1-1.9 [facility] Comment on above: Performed By: #### 8 [id number] #### JANES POC Subsection [address] [place], [place] [address] Alk Phos 55 Int._Unit/L Normal 33-136 [facility] Comment on above: Performed By: #### 8 [id number] #### JANES POC Subsection [address] [place] [address] 89959 ALT [Catalytic activity/Vol] 19 Int._Unit/L Normal 10-52 [facility] Comment on above: Performed By: #### 8 [id number] #### JANES POC Subsection [address] [place] [address] 21500 Anion gap [Moles/Vol] 10 mmol/L Normal 10-20 [facility] Comment on above: Performed By: #### 8 [id number] #### JANES POC Subsection [address] [place] [address] 80994 AST [Catalytic activity/Vol] 18 Int._Unit/L Normal 9-39 [facility] Comment on above: Performed By: #### 8 [id number] #### JANES POC Subsection [address] [place] [address] 05396 Bili Total 0.72 mg/dL Normal 0.00-1.20 [facility] Comment on above: Performed By: #### 8 [id number] #### JANES POC Subsection [address] [place] [address] 24869 Calcium [Mass/Vol] 9.3 mg/dL Normal 8.6-10.3 [facility] Comment on above: Performed By: #### 8 [id number] #### JANES POC Subsection [address] [place] [address] 19967 Chloride [Moles/Vol] 104 mmol/L Normal 98-107 [facility] Comment on above: Performed By: #### 8 [id number] #### JANES POC Subsection [address] [place] [address] 14956 CO2 [Moles/Vol] 29.0 mmol/L Normal 21.0-32.0 [facility] Comment on above: Performed By: #### 8 [id number] #### JANES POC Subsection [address] [place] [address] 08040 Creatinine [Mass/Vol] 0.8 mg/dL Normal 0.5-1.3 [facility] Comment on above: Performed By: #### 8 [id number] #### JANES POC Subsection [address] [place] [address] 51089 Globulin (S) [Mass/Vol] 3.0 g/dL Normal 2.0-4.0 [facility] Comment on above: Performed By: #### 8 [id number] #### JANES POC Subsection [address] [place] [address] 59469 Glucose [Mass/Vol] 119 mg/dL High 70-99 [facility] Comment on above: Performed By: #### 8 [id number] #### JANES POC Subsection [address] [place] [address] 18844 Potassium [Moles/Vol] 4.4 mmol/L Normal 3.5-5.3 [facility] Comment on above: Performed By: #### 8 [id number] #### JANES POC Subsection [address] [place] [address] 99053 Protein [Mass/Vol] 7.2 g/dL Normal 6.4-8.2 [facility] Comment on above: Performed By: #### 8 [id number] #### JANES POC Subsection [address] [place] [address] 37007 Sodium [Moles/Vol] 139 mmol/L Normal 136-145 [facility] Comment on above: Performed By: #### 8 [id number] #### JANES POC Subsection [address] [place] [address] 57640 Urea nitrogen [Mass/Vol] 18 mg/dL Normal 6-23 [facility] Comment on above: Performed By: #### 8 [id number] #### JANES POC Subsection [address] [place] [address] 25637 Urea nitrogen/Creatinine [Mass ratio] 22.5 ratio Normal 5.4-30.0 [facility] Comment on above: Performed By: #### 8 [id number] #### JANES POC Subsection [address] [place] [address] 78949 [id number] 02-23-2019 HbA1c (Bld) [Mass fraction] 6.5 % High 4.0-6.3 [facility] Comment on above: Performed By: #### 8 [id number] #### JANES POC Subsection [address] [place] [address] 49077 Lipid Profileon 02-23-2019 Cholesterol [Mass/Vol] 123 mg/dL Normal 0-199 [facility] Comment on above: Result Comment: TOTA L CHOLEESTEROL: <200 NORMAL 200 - 239 BORDERLINE HIGH >240 HIGH Performed By: #### 8 [id number] #### JANES POC Subsection [address] [place] [address] 74408 Cholesterol in HDL [Mass/Vol] 41 mg/dL Normal 40-60 [facility] Comment on above: Performed By: #### 8 [id number] #### JANES POC Subsection [address] [place] [address] 44735 Cholesterol in LDL [Mass/Vol] 56 mg/dL Normal 0-130 [facility] Comment on above: Result Comment: <100 OPTIMAL 100-129 NEAR / ABOVE OPTIMAL 130-159 BORDERLINE HIGH 160-189 HIGH >190 VERY HIGH CALC LDL NOT VALID WHEN TRIGLYCERIDE IS >400 MG/DL Performed By: #### 8 [id number] #### JANES POC Subsection [address] [place] [address] 54620 Cholesterol in VLDL [Mass/Vol] 26 mg/dL Normal 0-40 [facility] Comment on above: Performed By: #### 8 [id number] #### JANES POC Subsection [address] [place] [address] 38481 Triglyceride [Mass/Vol] 131 mg/dL Normal 0-149 [facility] Comment on above: Result Comment: AGE DESIRABLE BORDERLINE HIGH 91 D - 9 Y 0 - 74 75 - 99 > 100 10 - 19 Y 0 - 89 90 - 129 > 130 20 -24 Y 0 - 114 115 - 149 > 150 > 25 0 - 149 150 - 199 200 - 499 Performed By: #### 8 [id number] #### JANES POC Subsection [address] [place] [address] 94828 eGFRon 02-23-2019 GFR/1.73 sq M predicted among non-blacks MDRD (S/P/Bld) [Vol rate/Area] mL/min/{1.73_m2} Normal [facility] Comment on above: Order Comment: Order added by Discern Expert. Performed By: #### 8 [id number] #### JANES POC Subsection [address] [place] [address] 44319 PT/INR Capillaryon 9 INR Coag (Bld) [Relative time] 2.6 {INR} High 1.0-1.2 [facility] Comment on above: Result Comment: Sour ce Capillary Performed By: #### 8 [id number] #### JANES POC Subsection [address] [place] [address] 90114 PT POC 30.0 second(s) High 8.0-11.0 [facility] Comment on above: Performed By: #### 8 [id number] #### JANES POC Subsection [address] [place] [address] 35229 PT/INR POC Orderon 9 INR Coag (Bld) [Relative time] Collected Normal [facility] Comment on above: Performed By: #### 8 [id number] #### JANES POC Subsection [address] [place] [address] 14974 PT/INR Capillaryon 9 INR Coag (Bld) [Relative time] 2.8 {INR} High 1.0-1.2 [facility] Comment on above: Result Comment: Sour ce Capillary Performed By: #### 8 [id number] #### JANES POC Subsection [address] [place] [address] 79590 PT POC 33.0 second(s) High 8.0-11.0 [facility] Comment on above: Performed By: #### 8 [id number] #### JANES POC Subsection [address] [place] [address] 30800 PT/INR POC Orderon 9 INR Coag (Bld) [Relative time] Collected Normal [facility] Comment on above: Performed By: #### 8 [id number] #### JANES POC Subsection [address] [place] [address] 99508 PT/INR Capillaryon 9 INR Coag (Bld) [Relative time] 2.9 {INR} High 1.0-1.2 [facility] Comment on above: Result Comment: Sour ce Capillary Performed By: #### 8 [id number] #### JANES POC Subsection [address] [place] [address] 36933 PT POC 34.0 second(s) High 8.0-11.0 [facility] Comment on above: Performed By: #### 8 [id number] #### JANES POC Subsection [address] [place] [address] 13898 PT/INR POC Orderon 9 INR Coag (Bld) [Relative time] Collected Normal [facility] Comment on above: Performed By: #### 8 [id number] #### JANES POC Subsection [address] [place] [address] 21855 CMPon 10-19-2018 Albumin [Mass/Vol] 4.4 g/dL Normal 3.4-5.0 [facility] Comment on above: Performed By: #### 8 [id number] #### JANES POC Subsection [address] [place] [address] 27135 Albumin/Globulin [Mass ratio] 1.5 {ratio} Normal 1.1-1.9 [facility] Comment on above: Performed By: #### 8 [id number] #### JANES POC Subsection [address] [place] [address] 77461 Alk Phos 52 Int._Unit/L Normal 33-136 [facility] Comment on above: Performed By: #### 8 [id number] #### JANES POC Subsection [address] [place] [address] 50777 ALT [Catalytic activity/Vol] 17 Int._Unit/L Normal 10-52 [facility] Comment on above: Performed By: #### 8 [id number] #### JANES POC Subsection [address] [place] [address] 10487 Anion gap [Moles/Vol] 10 mmol/L Normal 10-20 [facility] Comment on above: Performed By: #### 8 [id number] #### JANES POC Subsection [address] [place] [address] 62497 AST [Catalytic activity/Vol] 17 Int._Unit/L Normal 9-39 [facility] Comment on above: Performed By: #### 8 [id number] #### JANES POC Subsection [address] [place] [address] 49002 Bili Total 0.83 mg/dL Normal 0.00-1.20 [facility] Comment on above: Performed By: #### 8 [id number] #### JANES POC Subsection [address] [place] [address] 33886 Calcium [Mass/Vol] 9.4 mg/dL Normal 8.6-10.3 [facility] Comment on above: Performed By: #### 8 [id number] #### JANES POC Subsection [address] [place] [address] 44936 Chloride [Moles/Vol] 106 mmol/L Normal 98-107 [facility] Comment on above: Performed By: #### 8 [id number] #### JANES POC Subsection [address] [place] [address] 37332 CO2 [Moles/Vol] 27.0 mmol/L Normal 21.0-32.0 [facility] Comment on above: Performed By: #### 8 [id number] #### JANES POC Subsection [address] [place] [address] 51028 Creatinine [Mass/Vol] 0.8 mg/dL Normal 0.5-1.3 [facility] Comment on above: Performed By: #### 8 [id number] #### JANES POC Subsection [address] [place] [address] 05660 Globulin (S) [Mass/Vol] 3.0 g/dL Normal 2.0-4.0 [facility] Comment on above: Performed By: #### 8 [id number] #### JANES POC Subsection [address] [place] [address] 08848 Glucose [Mass/Vol] 125 mg/dL High 70-99 [facility] Comment on above: Performed By: #### 8 [id number] #### JANES POC Subsection [address] [place] [address] 13244 Potassium [Moles/Vol] 4.4 mmol/L Normal 3.5-5.3 [facility] Comment on above: Performed By: #### 8 [id number] #### JANES POC Subsection [address] [place] [address] 49201 Protein [Mass/Vol] 7.3 g/dL Normal 6.4-8.2 [facility] Comment on above: Performed By: #### 8 [id number] #### JANES POC Subsection [address] [place] [address] 61639 Sodium [Moles/Vol] 139 mmol/L Normal 136-145 [facility] Comment on above: Performed By: #### 8 [id number] #### JANES POC Subsection [address] [place] [address] 72216 Urea nitrogen [Mass/Vol] 18 mg/dL Normal 6-23 [facility] Comment on above: Performed By: #### 8 [id number] #### JANES POC Subsection [address] [place] [address] 65023 Urea nitrogen/Creatinine [Mass ratio] 22.5 ratio Normal 5.4-30.0 [facility] Comment on above: Performed By: #### 8 [id number] #### JANES POC Subsection [address] [place] [address] 59989 [id number] 10-19-2018 HbA1c (Bld) [Mass fraction] 6.5 % High 4.0-6.3 [facility] Comment on above: Performed By: #### 8 [id number] #### JANES POC Subsection [address] [place] [address] 59365 eGFRon 10-19-2018 GFR/1.73 sq M predicted among non-blacks MDRD (S/P/Bld) [Vol rate/Area] mL/min/{1.73_m2} Normal [facility] Comment on above: Order Comment: Order added by Discern Expert. Performed By: #### 8 [id number] #### JANES POC Subsection [address] [place] [address] 09274 PT/INR Capillaryon 9 INR Coag (Bld) [Relative time] 2.6 {INR} High 1.0-1.2 [facility] Comment on above: Result Comment: Sour ce Capillary Performed By: #### 8 [id number] #### JANES POC Subsection [address] [place] [address] 22543 PT POC 30.0 second(s) High 8.0-11.0 [facility] Comment on above: Performed By: #### 8 [id number] #### JANES POC Subsection [address] [place] [address] 06110 PT/INR POC Orderon 9 INR Coag (Bld) [Relative time] Collected Normal [facility] Comment on above: Performed By: #### 8 [id number] #### JANES POC Subsection [address] [place] [address] 01835 PT/INR Capillaryon 9 INR Coag (Bld) [Relative time] 2.4 {INR} High 1.0-1.2 [facility] Comment on above: Result Comment: Sour ce Capillary Performed By: #### 8 [id number] #### JANES POC Subsection [address] [place] [address] PT POC 28.0 second(s) High 8.0-11.0 [facility] Comment on above: Performed By: #### 8 [id number] #### JANES POC Subsection [address] [place] [address] 91886 PT/INR POC Orderon 9 INR Coag (Bld) [Relative time] Collected Normal [facility] Comment on above: Performed By: #### 8 [id number] #### JANES POC Subsection [address] [place] [address] 33556 CMPon 07-06-2018 Albumin [Mass/Vol] 4.3 g/dL Normal 3.4-5.0 [facility] Comment on above: Performed By: #### 2 [id number] #### JANES [employer] [address] [place] [address] 17611 Albumin/Globulin [Mass ratio] 1.4 {ratio} Normal 1.1-1.9 [facility] Comment on above: Performed By: #### 2 [id number] #### JANES [employer] [address] [place] [address] 00480 Alk Phos 54 Int._Unit/L Normal 33-136 [facility] Comment on above: Performed By: #### 2 [id number] #### JANES [employer] [address] [place] [address] 27449 ALT [Catalytic activity/Vol] 22 Int._Unit/L Normal 10-52 [facility] Comment on above: Performed By: #### 2 [id number] #### JANES [employer] [address] [place] [address] 85088 Anion gap [Moles/Vol] 10 mmol/L Normal 10-20 [facility] Comment on above: Performed By: #### 2 [id number] #### JANES [employer] [address] [place] [address] 56365 AST [Catalytic activity/Vol] 20 Int._Unit/L Normal 9-39 [facility] Comment on above: Performed By: #### 2 [id number] #### JANES [employer] [address] [place] [address] 60420 Bili Total 0.92 mg/dL Normal 0.00-1.20 [facility] Comment on above: Performed By: #### 2 [id number] #### JANES [employer] [address] [place] [address] 81762 Calcium [Mass/Vol] 9.6 mg/dL Normal 8.6-10.3 [facility] Comment on above: Performed By: #### 2 [id number] #### JANES [employer] [address] [place] [address] 63695 Chloride [Moles/Vol] 104 mmol/L Normal 98-107 [facility] Comment on above: Performed By: #### 2 [id number] #### JANES [employer] [address] [place] [address] 45646 CO2 [Moles/Vol] 30.0 mmol/L Normal 21.0-32.0 [facility] Comment on above: Performed By: #### 2 [id number] #### JANES [employer] [address] [place] [address] 13189 Creatinine [Mass/Vol] 0.8 mg/dL Normal 0.5-1.3 [facility] Comment on above: Performed By: #### 2 [id number] #### JANES [employer] [address] [place] [address] 76105 Globulin (S) [Mass/Vol] 3.0 g/dL Normal 2.0-4.0 [facility] Comment on above: Performed By: #### 2 [id number] #### JANES [employer] [address] [place] [address] 73209 Glucose [Mass/Vol] 131 mg/dL High 70-99 [facility] Comment on above: Performed By: #### 2 [id number] #### JANES [employer] [address] [place] [address] 95223 Potassium [Moles/Vol] 4.4 mmol/L Normal 3.5-5.3 [facility] Comment on above: Performed By: #### 2 [id number] #### JANES [employer] [address] [place] [address] 07005 Protein [Mass/Vol] 7.3 g/dL Normal 6.4-8.2 [facility] Comment on above: Performed By: #### 2 [id number] #### JANES [employer] [address] [place] [address] 69896 Sodium [Moles/Vol] 139 mmol/L Normal 136-145 [facility] Comment on above: Performed By: #### 2 [id number] #### JANES [employer] [address] [place] [address] 62127 Urea nitrogen [Mass/Vol] 15 mg/dL Normal 6-23 [facility] Comment on above: Performed By: #### 2 [id number] #### JANES [employer] [address] [place] [address] 69128 Urea nitrogen/Creatinine [Mass ratio] 18.8 ratio Normal 5.4-30.0 [facility] Comment on above: Performed By: #### 2 [id number] #### JANES [employer] [address] [place] [address] 40487 [id number] 07-06-2018 HbA1c (Bld) [Mass fraction] 6.6 % High 4.0-6.3 [facility] Comment on above: Performed By: #### 3 [id number] #### JANES Chemistry Manual Subsection [address] [place], [place] [address] eGFRon 07-06-2018 GFR/1.73 sq M predicted among non-blacks MDRD (S/P/Bld) [Vol rate/Area] mL/min/{1.73_m2} Normal [facility] Comment on above: Order Comment: Order added by Discern Expert. Performed By: #### 1 [id number] #### JANES [employer] [address] [place] [address] 53465 PT/INR Capillaryon 8 INR Coag (Bld) [Relative time] 2.4 {INR} High 1.0-1.2 [facility] Comment on above: Result Comment: Sour ce Capillary Performed By: #### 8 [id number] #### JANES POC Subsection [address] [place] [address] 79194 PT POC 28.0 second(s) High 8.0-11.0 [facility] Comment on above: Performed By: #### 8 [id number] #### JANES POC Subsection [address] [place] [address] 29188 PT/INR POC Orderon 8 INR Coag (Bld) [Relative time] Collected Normal [facility] Comment on above: Performed By: #### 8 [id number] #### JANES POC Subsection [address] [place] [address] 02536 PT/INR Capillaryon 8 INR Coag (Bld) [Relative time] 2.5 {INR} High 1.0-1.2 [facility] Comment on above: Result Comment: Sour ce Capillary Performed By: #### 8 [id number] #### JANES POC Subsection [address] [place] [address] 01690 PT POC 29.0 second(s) High 8.0-11.0 [facility] Comment on above: Performed By: #### 8 [id number] #### JANES POC Subsection [address] [place] [address] 55109 PT/INR POC Orderon 8 INR Coag (Bld) [Relative time] Collected Normal [facility] Comment on above: Performed By: #### 8 [id number] #### JANES POC Subsection [address] [place] [address] 48155 Vital Signs Date Time Vital Sign Value Performing Clinician Facility 04-13-2025 15:19-0400 Body height 182.9 cm Neymar Xavier MD Work Phone: [facility] 04-13-2025 15:19-0400 Body mass index (BMI) [Ratio] 30.88 kg/m2 Neymar Xavier MD Work Phone: [facility] 04-13-2025 15:19-0400 Body weight 103.28 kg Neymar Xavier MD Work Phone: [facility] 04-13-2025 15:19-0400 Diastolic blood pressure 80 mm[Hg] Neymar Xavier MD Work Phone: [facility] 04-13-2025 15:19-0400 Heart rate 89 /min Neymar Xavier MD Work Phone: [facility] 04-13-2025 15:19-0400 SaO2% (BldA) [Mass fraction] 95 % Neymar Xavier MD Work Phone: [facility] 04-13-2025 15:19-0400 Systolic blood pressure 123 mm[Hg] Neymar Xavier MD Work Phone: [facility] 03-16-2025 15:48-0400 Body height 182.9 cm Neymar Xavier MD Work Phone: 5(709)238-458782 [place] [address] 03-16-2025 15:48-0400 Body mass index (BMI) [Ratio] 31.06 kg/m2 Neymar Xavier MD Work Phone: [facility] 03-16-2025 15:48-0400 Body weight 103.87 kg Neymar Xavier MD Work Phone: 3(307)316-728546 [address] 03-16-2025 15:48-0400 Diastolic blood pressure 98 mm[Hg] Neymar Xavier MD Work Phone: [facility] 03-16-2025 15:48-0400 Heart rate 94 /min Neymar Xavier MD Work Phone: [facility] 03-16-2025 15:48-0400 SaO2% (BldA) [Mass fraction] 95 % Neymar Xavier MD Work Phone: [facility] 03-16-2025 15:48-0400 Systolic blood pressure 151 mm[Hg] Neymar Xavier MD Work Phone: [facility] 02-13-2025 08:46-0400 Body height 182.9 cm Neymar Xavier MD Work Phone: [facility] 02-13-2025 08:46-0400 Body mass index (BMI) [Ratio] 30.11 kg/m2 Neymar Xavier MD Work Phone: 3(021)839-677982 [place] [address] 02-13-2025 08:46-0400 Body weight 100.7 kg Neymar Xavier MD Work Phone: 3(407)322-418482 [place] [address] 02-13-2025 08:46-0400 Diastolic blood pressure 77 mm[Hg] Neymar Xavier MD Work Phone: 0(633)361-901346 [address] 02-13-2025 08:46-0400 Heart rate 85 /min Neymar Xavier MD Work Phone: 7(265)295-617546 [address] 02-13-2025 08:46-0400 Systolic blood pressure 131 mm[Hg] Neymar Xavier MD Work Phone: 6(101)237-905477 [place] [address] 02-06-2025 09:09-0400 Diastolic blood pressure 80 mm[Hg] Neymar Xavier MD Work Phone: 9(006)909-951277 [place] [address] 02-06-2025 09:09-0400 Systolic blood pressure 118 mm[Hg] Neymar Xavier MD Work Phone: 3(623)428-150977 [place] [address] 02-06-2025 08:56-0400 Body height 182.9 cm Neymar Xavier MD Work Phone: 2(201)798-527646 [address] 02-06-2025 08:56-0400 Body mass index (BMI) [Ratio] 30.11 kg/m2 Neymar Xavier MD Work Phone: 5(975)160-802946 [address] 02-06-2025 08:56-0400 Body weight 100.7 kg Neymar Xavier MD Work Phone: 2(694)301-313782 [place] [address] 02-06-2025 08:56-0400 Heart rate 92 /min Neymar Xavier MD Work Phone: 7(949)676-360082 [place] [address] 10-18-2024 10:54-0400 Body height 182.9 cm Neymar Xavier MD Work Phone: 3(788)077-592482 [place] [address] 10-18-2024 10:54-0400 Body mass index (BMI) [Ratio] 29.84 kg/m2 Neymar Xavier MD Work Phone: [facility] 10-18-2024 10:54-0400 Body weight 99.79 kg Neymar Xavier MD Work Phone: [facility] 10-18-2024 10:54-0400 Diastolic blood pressure 84 mm[Hg] Neymar Xavier MD Work Phone: [facility] 10-18-2024 10:54-0400 Heart rate 96 /min Neymar Xavier MD Work Phone: [facility] 10-18-2024 10:54-0400 Systolic blood pressure 134 mm[Hg] Neymar Xavier MD Work Phone: [facility] 09-27-2024 15:52-0400 Body height 182.9 cm Neymar Xavier MD Work Phone: [facility] 09-27-2024 15:52-0400 Body mass index (BMI) [Ratio] 29.84 kg/m2 Neymar Xavier MD Work Phone: [facility] 09-27-2024 15:52-0400 Body weight 99.79 kg Neymar Xvaier MD Work Phone: [facility] 09-27-2024 15:52-0400 Diastolic blood pressure 85 mm[Hg] Neymar Xavier MD Work Phone: [facility] 09-27-2024 15:52-0400 Heart rate 102 /min Neymar Xavier MD Work Phone: [facility] 09-27-2024 15:52-0400 Systolic blood pressure 136 mm[Hg] Neymar Xavier MD Work Phone: [facility] 09-22-2024 14:40-0400 Body temperature 98.7 [degF] Dr. Stone Leong DO Work Phone: 3(484)087-461125 [place] [address] 09-22-2024 14:40-0400 Diastolic blood pressure 87 mm[Hg] Dr. Stone Leong DO Work Phone: 0(956)768-602125 [place] [address] 09-22-2024 14:40-0400 Heart rate 92 /min Dr. Stone Leong DO Work Phone: 5(973)662-724125 [place] [address] 09-22-2024 14:40-0400 Respiratory rate 18 /min Dr. Stone Leong DO Work Phone: 6(251)913-103825 [place] [address] 09-22-2024 14:40-0400 SaO2% (BldA) [Mass fraction] 97 % Dr. Stone Leong DO Work Phone: 1(742)719-391125 [place] [address] 09-22-2024 14:40-0400 Systolic blood pressure 121 mm[Hg] Dr. Stone Leong DO Work Phone: 8(533)329-812525 [place] [address] 09-22-2024 05:50-0400 Body mass index (BMI) [Ratio] 29.5 kg/m2 Dr. Stone Leong DO Work Phone: 3(968)268-750625 [place] [address] 09-22-2024 05:50-0400 Body weight 98.[address] Stone Leong DO Work Phone: 3(708)236-191225 [place] [address] 09-21-2024 09:31-0400 Body height 182.[address] Stone Leong DO Work Phone: 6(688)887-326225 [place] [address] 09-21-2024 09:05-0400 Inhaled oxygen flow rate 3 L/min Dr. Stone Leong DO Work Phone: 9(950)931-632625 [place] [address] 09-21-2024 08:00-0400 Inhaled oxygen concentration 29 % Dr. Stone Leong DO Work Phone: 9(327)559-668225 [place] [address] 09-20-2024 20:00-0400 Body temperature 99.3 [degF] Dr. Stone Leong DO Work Phone: 4(534)513-761025 [place] [address] 09-20-2024 20:00-0400 Diastolic blood pressure 54 mm[Hg] Dr. Stone Leong DO Work Phone: 3(016)531-831725 [place] [address] 09-20-2024 20:00-0400 Heart rate 130 /min Dr. Stone Leong DO Work Phone: 7(303)950-992125 [place] [address] 09-20-2024 20:00-0400 Respiratory rate 27 /min Dr. Stone Leong DO Work Phone: 6(259)549-646425 [place] [address] 09-20-2024 20:00-0400 SaO2% (BldA) [Mass fraction] 95 % Dr. Stone Leong DO Work Phone: 5(407)724-568089 [place] [address] 09-20-2024 20:00-0400 Systolic blood pressure 117 mm[Hg] Dr. Stone Leong DO Work Phone: 0(072)808-640725 [place] [address] 09-20-2024 19:21-0400 Inhaled oxygen concentration 28 % Dr. Stone Leong DO Work Phone: 2(618)067-274325 [place] [address] 09-20-2024 17:34-0400 Body height 182.[address] Stone Leong DO Work Phone: 7(966)864-208925 [place] [address] 09-20-2024 17:34-0400 Body mass index (BMI) [Ratio] 29.7 kg/m2 Dr. Stone Leong DO Work Phone: 1(228)804-978025 [place] [address] 09-20-2024 17:34-0400 Body weight 99.[address] Stone Leong DO Work Phone: 7(980)940-699125 [place] [address] 08-01-2024 11:45-0500 Diastolic blood pressure 79 mm[Hg] Neymar Xavier MD Work Phone: [facility] 08-01-2024 11:45-0500 Systolic blood pressure 124 mm[Hg] Neymar Xavier MD Work Phone: [facility] 08-01-2024 11:30-0500 Body height 182.9 cm Neymar Xavier MD Work Phone: [facility] 08-01-2024 11:30-0500 Body mass index (BMI) [Ratio] 30.79 kg/m2 Neymar Xavier MD Work Phone: [facility] 08-01-2024 11:30-0500 Body weight 102.97 kg Neymar Xavier MD Work Phone: [facility] 08-01-2024 11:30-0500 Heart rate 83 /min Neymar Xavier MD Work Phone: [facility] 02-25-2024 15:14-0400 Diastolic blood pressure 84 mm[Hg] Kayla Ames PA-C Work Phone: [facility] 02-25-2024 15:14-0400 Systolic blood pressure 130 mm[Hg] Kayla Ames PA-C Work Phone: [facility] 02-25-2024 14:35-0400 Body height 182.9 cm Kaylamoriah Phillipsall PA-C Work Phone: [facility] 02-25-2024 14:35-0400 Body mass index (BMI) [Ratio] 30.11 kg/m2 Kayla Micha PA-C Work Phone: [facility] 02-25-2024 14:35-0400 Body weight 100.7 kg Kayla Ames PA-C Work Phone: [facility] 02-25-2024 14:35-0400 Heart rate 98 /min Kaylamoriah Phillipsall PA-C Work Phone: [facility] 02-25-2024 14:35-0400 SaO2% (BldA) [Mass fraction] 96 % Kayla Muse PA-C Work Phone: [facility] 01-18-2024 08:05-0400 Body height 182.9 cm Neymar Xavier MD Work Phone: [facility] 01-18-2024 08:05-0400 Body mass index (BMI) [Ratio] 30.38 kg/m2 Neymar Xavier MD Work Phone: [facility] 01-18-2024 08:05-0400 Body weight 101.61 kg Neymar Xavier MD Work Phone: [facility] 01-18-2024 08:05-0400 Diastolic blood pressure 73 mm[Hg] Neymar Xavier MD Work Phone: [facility] 01-18-2024 08:05-0400 Heart rate 84 /min Neymar Xavier MD Work Phone: [facility] 01-18-2024 08:05-0400 Systolic blood pressure 139 mm[Hg] Neymar Xavier MD Work Phone: [facility] 09-16-2023 09:22-0400 Body height 182.9 cm Neymar Xavier MD Work Phone: [facility] 09-16-2023 09:22-0400 Body mass index (BMI) [Ratio] 30.65 kg/m2 Neymar Xavier MD Work Phone: [facility] 09-16-2023 09:22-0400 Body weight 102.51 kg Neymar Xavier MD Work Phone: [facility] 09-16-2023 09:22-0400 Diastolic blood pressure 70 mm[Hg] Neymar Xavier MD Work Phone: [facility] 09-16-2023 09:22-0400 Heart rate 82 /min Neymar Xavier MD Work Phone: [facility] 09-16-2023 09:22-0400 Systolic blood pressure 115 mm[Hg] Neymar Xavier MD Work Phone: [facility] 05-18-2023 09:40-0500 Body height 182.9 cm Neymar Xavier MD Work Phone: [facility] 05-18-2023 09:40-0500 Body mass index (BMI) [Ratio] 31.6 kg/m2 Neymar Xavier MD Work Phone: [facility] 05-18-2023 09:40-0500 Body weight 105.69 kg Neymar Xavier MD Work Phone: 9(247)752-226282 [place] [address] 05-18-2023 09:40-0500 Diastolic blood pressure 68 mm[Hg] Neymar Xavier MD Work Phone: [facility] 05-18-2023 09:40-0500 Heart rate 68 /min Neymar Xavier MD Work Phone: [facility] 05-18-2023 09:40-0500 Systolic blood pressure 110 mm[Hg] Neyamr Xavier MD Work Phone: [facility] 04-07-2023 12:42-0400 Body height 182.9 cm Neymar Xavier MD Work Phone: [facility] 04-07-2023 12:42-0400 Body mass index (BMI) [Ratio] 31.19 kg/m2 Neymar Xavier MD Work Phone: [facility] 04-07-2023 12:42-0400 Body weight 104.33 kg Neymar Xavier MD Work Phone: 7(649)432-424182 [place] [address] 04-07-2023 12:42-0400 Diastolic blood pressure 95 mm[Hg] Neymar Xavier MD Work Phone: 6(417)120-128282 [place] [address] 04-07-2023 12:42-0400 Heart rate 77 /min Neymar Xavier MD Work Phone: 1(882)329-376746 [address] 04-07-2023 12:42-0400 Systolic blood pressure 136 mm[Hg] Neymar Xavier MD Work Phone: 1(957)600-728182 [place] [address] 01-12-2023 10:59-0400 Body height 182.9 cm Neymar Xavier MD Work Phone: 5(552)638-235177 [place] [address] 01-12-2023 10:59-0400 Body mass index (BMI) [Ratio] 32.01 kg/m2 Neymar Xavier MD Work Phone: 0(908)164-098577 [place] [address] 01-12-2023 10:59-0400 Body weight 107.05 kg Neymar Xavier MD Work Phone: 2(057)858-394377 [place] [address] 01-12-2023 10:59-0400 Diastolic blood pressure 82 mm[Hg] Neymar Xavier MD Work Phone: 1(811)077-824877 [place] [address] 01-12-2023 10:59-0400 Heart rate 84 /min Neymar Xavier MD Work Phone: 7(554)130-778882 [place] [address] 01-12-2023 10:59-0400 Systolic blood pressure 128 mm[Hg] Neymar Xavier MD Work Phone: 0(456)869-745882 [place] [address] 09-10-2022 11:20-0400 Body height 182.9 cm Neymar Xavier MD Work Phone: 3(499)856-147082 [place] [address] 09-10-2022 11:20-0400 Body mass index (BMI) [Ratio] 31.87 kg/m2 Neymar Xavier MD Work Phone: 2(510)211-723082 [place] [address] 09-10-2022 11:20-0400 Body weight 106.59 kg Neymar Xavier MD Work Phone: [facility] 09-10-2022 11:20-0400 Diastolic blood pressure 84 mm[Hg] Neymar Xavier MD Work Phone: [facility] 09-10-2022 11:20-0400 Heart rate 74 /min Neymar Xavier MD Work Phone: [facility] 09-10-2022 11:20-0400 Systolic blood pressure 138 mm[Hg] Neymar Xavier MD Work Phone: [facility] 05-14-2022 15:09-0500 Body height 182.88 cm Neymar Xavier Work Phone: [facility] Work Phone: 05-14-2022 15:09-0500 Body mass index (BMI) [Ratio] 32.96 kg/m2 Neymar Marshalle Work Phone: [facility] Work Phone: 05-14-2022 15:09-0500 Body surface area Derived from formula 2.31 m2 Neymar Xavier Work Phone: [facility] Work Phone: 05-14-2022 15:09-0500 Body weight 110.22 kg Neymar Marshalle Work Phone: [facility] Work Phone: 05-14-2022 15:09-0500 Diastolic blood pressure 78 mm[Hg] Neymar Eddyaee Work Phone: [facility] Work Phone: 05-14-2022 15:09-0500 Heart rate 88 /min Neymar Xavier Work Phone: [facility] Work Phone: 05-14-2022 15:09-0500 Systolic blood pressure 138 mm[Hg] Neymar Princess Tavallaee Work Phone: [facility] Work Phone: 01-08-2022 13:42-0400 Body height 182.88 cm Neymar Princess Tavallaee Work Phone: [facility] Work Phone: 01-08-2022 13:42-0400 Body mass index (BMI) [Ratio] 32.96 kg/m2 Neymar Princess Tavallaee Work Phone: [facility] Work Phone: 01-08-2022 13:42-0400 Body surface area Derived from formula 2.31 m2 Neymar Princess Tavallaee Work Phone: [facility] Work Phone: 01-08-2022 13:42-0400 Body weight 110.22 kg Neymar Princess Tavallaee Work Phone: [facility] Work Phone: 01-08-2022 13:42-0400 Diastolic blood pressure 90 mm[Hg] Neymar Princess Tavallaee Work Phone: [facility] Work Phone: 01-08-2022 13:42-0400 Heart rate 92 /min Neymar Princess Tavallaee Work Phone: [facility] Work Phone: 01-08-2022 13:42-0400 Systolic blood pressure 138 mm[Hg] Neymar M Tavallaee Work Phone: [facility] Work Phone: 09-10-2021 14:38-0400 Body height 182.88 cm Neymar M Tavallaee Work Phone: [facility] Work Phone: 09-10-2021 14:38-0400 Body mass index (BMI) [Ratio] 32.55 kg/m2 Neymar Princess Tavallaee Work Phone: [facility] Work Phone: 09-10-2021 14:38-0400 Body surface area Derived from formula 2.3 m2 Neymar Princess Tavallaee Work Phone: [facility] Work Phone: 09-10-2021 14:38-0400 Body weight 108.86 kg Neymar Princess Tavallaee Work Phone: [facility] Work Phone: 09-10-2021 14:38-0400 Diastolic blood pressure 82 mm[Hg] Neymar Princess Tavallaee Work Phone: [facility] Work Phone: 09-10-2021 14:38-0400 Heart rate 110 /min Neymar Princess Tavallaee Work Phone: [facility] Work Phone: 09-10-2021 14:38-0400 Systolic blood pressure 134 mm[Hg] Neymar Princess Tavallaee Work Phone: [facility] Work Phone: 05-14-2021 12:41-0500 Body height 182.88 cm Neymar Princess Tavallaee Work Phone: [facility] Work Phone: 05-14-2021 12:41-0500 Body mass index (BMI) [Ratio] 31.19 kg/m2 Neymar Princess Tavallaee Work Phone: [facility] Work Phone: 05-14-2021 12:41-0500 Body surface area Derived from formula 2.26 m2 Neymar Princess Tavallaee Work Phone: [facility] Work Phone: 05-14-2021 12:41-0500 Body weight 104.33 kg Neymar Princess Tavallaee Work Phone: [facility] Work Phone: 05-14-2021 12:41-0500 Diastolic blood pressure 80 mm[Hg] Neymar Princess Tavallaee Work Phone: [facility] Work Phone: 05-14-2021 12:41-0500 Heart rate 70 /min Neymar Princess Tavallaee Work Phone: [facility] Work Phone: 05-14-2021 12:41-0500 Systolic blood pressure 130 mm[Hg] Neymar Princess Tavallaee Work Phone: [facility] Work Phone: 01-08-2021 12:37-0400 Body height 182.88 cm Neymar M Tavallaee Work Phone: [facility] Work Phone: 01-08-2021 12:37-0400 Body mass index (BMI) [Ratio] 31.19 kg/m2 Neymar Princess Lopezallaee Work Phone: [facility] Work Phone: 01-08-2021 12:37-0400 Body surface area Derived from formula 2.26 m2 Neymar Princess Tavallaee Work Phone: [facility] Work Phone: 01-08-2021 12:37-0400 Body weight 104.33 kg Neymar Princess Tavallaee Work Phone: [facility] Work Phone: 01-08-2021 12:37-0400 Diastolic blood pressure 80 mm[Hg] Neymar M Tavallaee Work Phone: [facility] Work Phone: 01-08-2021 12:37-0400 Heart rate 78 /min Neymar M Tavallaee Work Phone: [facility] Work Phone: 01-08-2021 12:37-0400 Systolic blood pressure 128 mm[Hg] Neymar M Tavallaee Work Phone: [facility] Work Phone: 05-07-2020 16:49-0500 BMI (Body Mass Index) 31.87 kg/m2 Neymar Tavallaee [facility] Work Phone: 05-07-2020 16:49-0500 Body weight 106.6 kg Neymar Tavallaee [facility] Work Phone: 05-07-2020 16:49-0500 BP Diastolic 80 mm[Hg] Neymar Tavallaee [facility] Work Phone: Comment on above: Location: RUE; Position: Sitting 05-07-2020 16:49-0500 BP Systolic 118 mm[Hg] Neymar Tavallaee [facility] Work Phone: Comment on above: Location: RUE; Position: Sitting 05-07-2020 16:49-0500 BSA (Body Surface Area) 2.28 m2 Neymar Tavallaee [facility] Work Phone: 05-07-2020 16:49-0500 Height 182.88 cm Neymar Tavallaee [facility] Work Phone: 05-07-2020 16:49-0500 Pulse (Heart Rate) 72 /min Neymar Tavallaee [facility] Work Phone: 02-01-2020 17:51-0400 BMI (Body Mass Index) 32.69 kg/m2 Neymar Tavallaee [facility] Work Phone: 02-01-2020 17:51-0400 Body weight 109.32 kg Neymar Tavallaee [facility] Work Phone: 02-01-2020 17:51-0400 BP Diastolic 88 mm[Hg] Neymar Tavallaee [facility] Work Phone: 02-01-2020 17:51-0400 BP Systolic 144 mm[Hg] Neymar Tavallaee [facility] Work Phone: 02-01-2020 17:51-0400 BSA (Body Surface Area) 2.31 m2 Neymar Tavallaee [facility] Work Phone: 02-01-2020 17:51-0400 Height 182.88 cm Neymar Tavallaee [facility] Work Phone: 02-01-2020 17:51-0400 Pulse (Heart Rate) 68 /min Neymar Arunallaee [facility] Work Phone: 04-28-2019 16:07-0400 BMI (Body Mass Index) 31.6 kg/m2 Linda Andres [facility] Work Phone: 04-28-2019 16:07-0400 Body weight 105.7 kg Linda Andres [facility] Work Phone: 04-28-2019 16:07-0400 BP Diastolic 76 mm[Hg] Linda Andres [facility] Work Phone: Comment on above: Location: LUE; 04-28-2019 16:07-0400 BP Systolic 130 mm[Hg] Linda Andres [facility] Work Phone: Comment on above: Location: LUE; 04-28-2019 16:07-0400 BSA (Body Surface Area) 2.27 m2 Linda Andres [facility] Work Phone: 04-28-2019 16:07-0400 Height 182.88 cm Linda Andres [facility] Work Phone: 04-28-2019 16:07-0400 Pulse (Heart Rate) 80 /min Linda Andres [facility] Work Phone: Encounters Encounter Date Encounter Type Care Provider Facility Start: 04-13-2025 End: 04-13-2025 Office outpatient visit 15 minutes Neymar Xavier MD Work Phone: [facility] Comment on above: Benign essential hyp ertension (Primary Dx); Chronic atrial fibrillation, unspecified (Multi) Start: 04-13-2025 End: 04-13-2025 ambulatory [facility] Start: 04-10-2025 End: 04-10-2025 ambulatory [facility] Start: 03-16-2025 End: 03-16-2025 Office outpatient visit 25 minutes Neymar Xavier MD Work Phone: [facility] Comment on above: Primary 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 (Primary Dx); Benign essential hypertension Start: 03-16-2025 End: 03-16-2025 ambulatory [facility] Start: 03-13-2025 End: 03-13-2025 ambulatory [facility] Start: 02-20-2025 End: 02-20-2025 Subsequent hospital visit by physician [facility] Comment on above: Primary 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 Start: 02-20-2025 End: 02-20-2025 ambulatory [facility] Start: 02-13-2025 End: 02-13-2025 Office outpatient visit 25 minutes Neymar Xavier MD Work Phone: [facility] Comment on above: Primary 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 (Primary Dx); Hypercholesterolemia; Type 2 diabetes mellitus with hyperglycemia, without long-term current use of insulin; Benign essential hypertension Start: 02-13-2025 End: 02-13-2025 ambulatory [facility] Start: 02-06-2025 End: 02-06-2025 ambulatory [facility] Start: 02-06-2025 End: 02-06-2025 Subsequent hospital visit by physician Aidan Howard [facility] Comment on above: Left thigh pain Start: 02-06-2025 End: 02-06-2025 Office outpatient visit 25 minutes Neymar Xavier MD Work Phone: [facility] Comment on above: Benign essential hyp ertension (Primary Dx); Type 2 diabetes mellitus with hyperglycemia, without long-term current use of insulin; Hypercholesterolemia; Hypertriglyceridemia; Left thigh pain Start: 02-06-2025 End: 02-06-2025 [facility] Start: 01-17-2025 End: 01-17-2025 ambulatory [facility] Start: 12-20-2024 End: 12-20-2024 [facility] Start: 11-22-2024 End: 11-22-2024 ambulatory [facility] Start: 10-25-2024 End: 10-25-2024 ambulatory [facility] Start: 10-18-2024 End: 10-18-2024 Office outpatient visit 25 minutes Neymar Xavier MD Work Phone: [facility] Comment on above: Benign essential hyp ertension (Primary Dx); Type 2 diabetes mellitus without complication, without long-term current use of insulin; Abnormal CT scan of lung Start: 10-18-2024 End: 10-18-2024 ambulatory [facility] Start: 10-13-2024 End: 10-13-2024 Subsequent hospital visit by physician Aidan Ct [facility] Comment on above: Abnormal CT scan of lung Start: 10-13-2024 End: 10-13-2024 ambulatory [facility] Start: 10-11-2024 End: 10-11-2024 ambulatory [facility] Start: 10-06-2024 End: 10-06-2024 ambulatory [facility] Start: 09-27-2024 End: 09-27-2024 Transitional care manage srvc 14 day discharge Neymar Xavier MD Work Phone: [facility] Comment on above: Pneumonia of left lo wer lobe due to infectious organism (Primary Dx); Type 2 diabetes mellitus with hyperglycemia, without long-term current use of insulin; Benign essential hypertension; Abnormal CT scan of lung Start: 09-27-2024 End: 09-27-2024 ambulatory [facility] Start: 09-22-2024 Non-patient / Non-visit Dr. Marcelino betancourt [facility] Work Phone: Start: 09-21-2024 Non-patient / Non-visit Dr. Garrett amaya DO [facility] Start: 09-20-2024 ambulatory Marcelino Gracia Facility:[facility] Start: 09-20-2024 End: 09-22-2024 Evaluation and management of inpatient Dr. Zeferino Estrada DO -Intensive Care Unit Work Phone: Start: 09-13-2024 End: 09-13-2024 ambulatory [facility] Start: 08-16-2024 End: 08-16-2024 ambulatory [facility] Start: 08-01-2024 End: 08-01-2024 Assay of hemosiderin, quant Neymar Xavier MD Work Phone: [facility] Work Phone: Start: 08-01-2024 End: 08-01-2024 Patient encounter procedure Neymar Xavier MD Work Phone: [facility] Comment on above: Routine general medi louis examination at health care facility (Primary Dx); Benign essential hypertension; Type 2 diabetes mellitus with hyperglycemia, without long-term current use of insulin; Hypercholesterolemia; Hypertriglyceridemia; Type 2 diabetes mellitus with diabetic cataract, without long-term current use of insulin; Psoriatic arthritis (Multi); Chronic atrial fibrillation, unspecified (Multi); Special screening for malignant neoplasm of prostate Start: 08-01-2024 End: 08-01-2024 ambulatory [facility] Start: 08-01-2024 End: 08-01-2024 Encounter for general adult medical examination without abnormal findings [facility] Start: 07-19-2024 End: 07-19-2024 ambulatory [facility] Start: 07-04-2024 End: 07-04-2024 ambulatory [facility] Start: 06-20-2024 End: 06-20-2024 ambulatory [facility] Start: 05-24-2024 End: 05-24-2024 ambulatory [facility] Start: 04-26-2024 End: 04-26-2024 ambulatory [facility] Start: 04-12-2024 End: 04-12-2024 ambulatory [facility] Start: 02-25-2024 End: 02-25-2024 Office outpatient visit 25 minutes Kayla Muse PA-C Work Phone: [facility] Comment on above: Pre-operative cleara nce (Primary Dx); Type 2 diabetes mellitus with hyperglycemia, without long-term current use of insulin (Multi); Chronic atrial fibrillation, unspecified (Multi); Benign essential hypertension Start: 02-25-2024 End: 02-25-2024 Preoperative state Kayla Muse PA-C Work Phone: [facility] Work Phone: Start: 02-25-2024 End: 02-25-2024 ambulatory NEYMAR Sánchez [facility] Start: 02-25-2024 End: 02-25-2024 Encounter for other preprocedural examination NEYMAR Sánchez [facility] Start: 02-25-2024 End: 02-25-2024 Preoperative state [address] Work Phone: Start: 02-25-2024 End: 02-25-2024 Subsequent hospital visit by physician Aidan Greene [address] [place] [address] Comment on above: Pre-operative cleara nce Start: 01-18-2024 End: 01-18-2024 Office outpatient visit 25 minutes Neymar Xavier MD Work Phone: [facility] Comment on above: Benign essential hyp ertension (Primary Dx); Type 2 diabetes mellitus with hyperglycemia, without long-term current use of insulin (Multi); Chronic atrial fibrillation, unspecified (Multi); Type 2 diabetes mellitus without complication, without long-term current use of insulin (Multi); Psoriatic arthritis (Multi); Type 2 diabetes mellitus with diabetic cataract, without long-term current use of insulin (Multi) Start: 01-11-2024 End: 01-11-2024 [facility] Start: 01-11-2024 End: 01-11-2024 Encounter for general adult medical examination without abnormal findings NEYMAR Sánchez [facility] Start: 09-16-2023 End: 09-16-2023 Assay of hemosiderin, quant Neymar Xavier MD Work Phone: [facility] Work Phone: Start: 09-16-2023 End: 09-16-2023 Patient encounter procedure Nyemar Xavier MD Work Phone: [facility] Comment on above: Routine general medi louis examination at health care facility (Primary Dx); Type 2 diabetes mellitus without complication, without long-term current use of insulin ([facility]/HCC); Benign essential hypertension; Type 2 diabetes mellitus with hyperglycemia, without long-term current use of insulin ([facility]/HCC); Chronic atrial fibrillation, unspecified (CMS/HCC); Hypercholesterolemia; Hypertriglyceridemia; Special screening for malignant neoplasm of prostate Start: 09-09-2023 End: 09-09-2023 ambulatory NEYMAR XAVIER [facility] Start: 05-18-2023 End: 05-18-2023 Office outpatient visit 25 minutes Neymar Xavier MD Work Phone: [facility] Comment on above: Benign essential hyp ertension (Primary Dx); Chronic atrial fibrillation, unspecified (CMS/HCC); Type 2 diabetes mellitus with hyperglycemia, without long-term current use of insulin ([facility]); Hypercholesterolemia; Anemia, unspecified type; Muscle cramp Start: 04-08-2023 End: 04-08-2023 Subsequent hospital visit by physician Aidan Howard 1 [facility] Comment on above: Localized swelling o n left hand; Lymphedema, not elsewhere classified Start: 04-07-2023 End: 04-07-2023 Office outpatient visit 25 minutes Neymar Xavier MD Work Phone: [facility] Comment on above: Cellulitis, unspecif ied cellulitis site (Primary Dx); Tenosynovitis of hand; Localized swelling on left hand; Type 2 diabetes mellitus with hyperglycemia, without long-term current use of insulin ([facility]/HCC) Start: 02-17-[address] Neymar Xavier Facility:[id number] Start: 02-03-[address] Neymar Xavier Facility:[id number] Start: 01-12-2023 End: 01-12-2023 Office outpatient visit 25 minutes Neymar Xavier MD Work Phone: [facility] Comment on above: Type 2 diabetes nilsa itus without complication, without long- term current use of insulin (CMS/HCC); Psoriatic arthritis (CMS/HCC); Chronic atrial fibrillation, unspecified (CMS/HCC); Benign essential hypertension; Hypercholesterolemia; Hypertriglyceridemia; Healthcare maintenance Start: 01-12-2023 End: 01-12-2023 Patient encounter status Neymar Xavier MD Work Phone: [facility] Work Phone: Start: 01-06-[address] Neymar Xavier Facility:[id number] Start: 12-23-[address] Neymar Xavier Facility:[id number] Start: 11-18-[address] Neymar Xavier Facility:[id number] Start: 10-14-[address] Neymar Xavier Facility:[id number] Start: 09-10-2022 Chart Update Neymar whitt Work Phone: [facility] Work Phone: Start: 09-10-2022 End: 09-10-2022 Assay of hemosiderin, quant Neymar Xavier MD Work Phone: [facility] Work Phone: Start: 09-10-2022 End: 09-10-2022 Patient encounter procedure Neymar Xavier MD Work Phone: [facility] Comment on above: Type 2 diabetes nilsa itus without complication, without long- term current use of insulin (CMS/HCC) (Primary Dx); Psoriatic arthritis (CMS/HCC); Chronic atrial fibrillation, unspecified (CMS/HCC); Benign essential hypertension; Hypercholesterolemia; Hypertriglyceridemia; Healthcare maintenance; Special screening for malignant neoplasm of prostate; Routine general medical examination at health care facility Start: 09-10-2022 End: 09-10-2022 Patient encounter status Neymar Xavier MD Work Phone: [facility] Work Phone: Start: 09-10-[address] Neymar Xavier Facility:[id number] Start: 09-02-2022 Chart Update Neymar medinae Work Phone: [facility] Work Phone: Start: 08-21-2022 AUDIT Neymar whitt Work Phone: [facility] Work Phone: Start: 08-06-2022 Chart Update Neymar Molina llwildae Work Phone: [facility] Work Phone: Start: 08-06-[address] Neymar Xavier Facility:[id number] Start: 07-08-2022 Chart Update Neymar whitt Work Phone: [facility] Work Phone: Start: 07-08-[address] Neymar Xavier Facility:[id number] Start: 06-11-2022 Chart Update Neymar whitt Work Phone: [facility] Work Phone: Start: 06-11-[address] Neymar Xavier Facility:[id number] Start: 05-14-2022 Office outpatient vi sit 25 minutes Neymar Xavier Work Phone: [facility] Work Phone: Start: 05-14-2022 ambulatory Neymar Xavier Facil ity:[id number] Start: 05-14-2022 Chart Update Neymar whitt Work Phone: [facility] Work Phone: Start: 05-14-[address] Neymar Xavier Facility:[id number] Start: 04-16-2022 Chart Update Neymar Molina llaee Work Phone: [facility] Work Phone: Start: 04-16-[address] Neymar Xavier Facility:[id number] Start: 04-01-2022 Chart Update Neymar Molina llaee Work Phone: [facility] Work Phone: Start: 04-01-[address] Neymar Xavier Facility:[id number] Start: 03-12-2022 AUDIT Neymar Molina llaee Work Phone: [facility] Work Phone: Start: 03-11-2022 Chart Update Neymar Molina llaee Work Phone: [facility] Work Phone: Start: 03-11-[address] Neymar Xavier Facility:[id number] Start: 01-08-2022 Office outpatient vi sit 25 minutes Neymar Xavier Work Phone: [facility] Work Phone: Start: 01-08-2022 ambulatory Neymar Xavier Facil ity:[id number] Start: 01-02-2022 Chart Update Neymar Molina llaee Work Phone: [facility] Work Phone: Start: 12-23-2021 Chart Update Neymar Lopeza llaee Work Phone: [facility] Work Phone: Start: 11-19-2021 Chart Update Neymar Lopeza llaee Work Phone: [facility] Work Phone: Start: 10-21-2021 Chart Update Neymar Lopeza llaee Work Phone: [facility] Work Phone: Start: 10-14-2021 Chart Update Neymar Sánchez Tava llaee Work Phone: [facility] Work Phone: Start: 09-12-2021 Chart Update Neymar Sánchez Tava llaee Work Phone: [facility] Work Phone: Start: 09-10-2021 Adv care pln/ no alt dcsn mkr docd or refusal Neymar Marshalle Work Phone: [facility] Work Phone: Start: 09-10-2021 ambulatory Neymar Xavier Facil [id number] Start: 09-05-2021 COLON, Provider: Neymar Xavier, Status: Pen, Time: 8:30 AM Neymar Lopezallaehari Work Phone: [facility] Work Phone: Start: 09-03-2021 Chart Update Neymar Lopeza llaee Work Phone: [facility] Work Phone: Start: 09-03-2021 Chart Update Neymar Lopeza llaee Work Phone: [facility] Work Phone: Start: 08-22-2021 Chart Update Neymar Sánchez Tava llaee Work Phone: [facility] Work Phone: Start: 08-08-2021 Chart Update Neymar Sánchez Tava llaee Work Phone: [facility] Work Phone: Start: 07-17-2021 AUDIT Neymar Sánchez Tava llaee Work Phone: [facility] Work Phone: Start: 07-05-2021 AUDIT Neymar M Tava llaee Work Phone: [facility] Work Phone: Start: 06-12-2021 Chart Update Neymar M Tava llaee Work Phone: [facility] Work Phone: Start: 05-14-2021 Chart Update Neymar M Tava llaee Work Phone: [facility] Work Phone: Start: 05-14-2021 Office outpatient vi sit 25 minutes Neymar M Tavallaee Work Phone: [facility] Work Phone: Start: 05-07-2021 Chart Update Neymar Sánchez Tava llaee Work Phone: [facility] Work Phone: Start: 03-13-2021 Chart Update Neymar Princess Tava llaee Work Phone: [facility] Work Phone: Start: 02-12-2021 Chart Update Neymar M Tava llaee Work Phone: [facility] Work Phone: Start: 01-27-2021 Chart Update Neymar Sánchez Tava llaee Work Phone: [facility] Work Phone: Start: 01-14-2021 AUDIT Neymar Sánchez Tava llaee Work Phone: [facility] Work Phone: Start: 01-10-2021 Chart Update Neymar M Tava llaee Work Phone: [facility] Work Phone: Start: 01-08-2021 Office outpatient vi sit 25 minutes Neymar Xavier Work Phone: [facility] Work Phone: Start: 12-25-2020 Chart Update Neymar Lopeza llaee Work Phone: [facility] Work Phone: Start: 11-18-2020 Chart Update Neymar Lopeza llaee Work Phone: [facility] Work Phone: Start: 05-07-2020 Patient encounter procedure Neymar Tavallaee [facility] Work Phone: Start: 02-01-2020 Patient encounter procedure Neymar Tavallaee [facility] Work Phone: Start: 11-01-2019 Patient encounter procedure Neymar Tavallaee [facility] Work Phone: Start: 08-03-2019 Patient encounter procedure Neymar Tavallaee [facility] Work Phone: Start: 07-04-2019 Patient encounter procedure Neymar Tavallaee [facility] Work Phone: Start: 04-28-2019 Patient encounter procedure Neymar Tavallaee [facility] Work Phone: Procedures Date Procedure Procedure Detail Performing Clinician Start: 02-20-2025 Mri any jt lower ext rem w/o contrast matrl Neymar Xavier MD Work Phone: Start: 02-06-2025 Radiologic examinati on femur minimum 2 views Neymar Xavier MD Work Phone: Start: 02-06-2025 Dup-scan xtr veins unilateral/limited study Neymar Xavier MD Work Phone: Start: 01-30-2025 Lipid 1996 panel - S [place] or Plasma Neymar Xavier MD Work Phone: Start: 09-21-2024 CT of thorax, abdome n and pelvis with contrast Dr. Stoen Leong DO Work Phone: Start: 09-20-2024 CT of chest without contrast Dr. Stone Leong DO Work Phone: Start: 09-20-2024 Plain chest X-ray Dr. Erlinda Leong DO Work Phone: Start: 09-20-2024 Legionella pneumophi la antigen assay Dr. Stone Leong DO Work Phone: Start: 09-20-2024 SARS-CoV-2, Influenz a & RSV (PCR) Dr. Stone Leong DO Work Phone: Start: 09-20-2024 Streptococcus pneumo niae antigen assay Dr. Stone Leong DO Work Phone: Start: 02-25-2024 Ecg routine ecg w/le ast 12 lds w/i&r Kayla Muse PA-C Work Phone: Start: 01-11-2024 Lipid 1995 panel - S [place] or Plasma Neymar Xavier MD Work Phone: Start: 09-09-2023 CBC W Auto Different ial panel - Blood NEYMAR TAVALLAEE Start: 09-09-2023 Comprehensive metabo lic 2000 panel - Serum or Plasma NEYMAR TAVALLAEE Start: 09-09-2023 Cyanocobalamin vitamin b-12 NEYMAR TAVALLAEE Start: 09-09-2023 Ferritin [Mass/volum e] in Serum or Plasma NEYMAR TAVALLAEE Start: 09-09-2023 FOLATE NEYMAR TA VALLAEE Start: 09-09-2023 Hemoglobin A1c/Hemoglobin.total in Blood NEYMAR TAVALLAEE Start: 09-09-2023 IRON AND TIBC NEYMAR T AVALLAEE Start: 09-09-2023 METHYLMALONIC ACID ALBERT DAD TAVALLAEE Start: 04-08-2023 Dup-scan xtr veins unilateral/limited study Neymar Xavier MD Work Phone: Start: 01-06-2023 Lipid 1996 panel - S [place] or Plasma Neymar Xavier MD Work Phone: Start: 01-01-2022 Lipid 1996 panel - S [place] or Plasma Neymar Xavier MD Work Phone: Start: 10-10-2021 Colonoscopy Neymar Xavier Work Phone: Start: 05-08-2020 Albumin, Urine Spot Indio rdad Tavallaee Start: 05-08-2020 Comprehensive metabo lic 2000 panel Neymar Tavallaee Start: 05-08-2020 Hemoglobin glycosylated a1c Neymar Tavallaee Start: 05-08-2020 PSA screening Neymar T avallaee Start: 05-08-2020 Ultrasound AAA Screening Neymar Tavallaee Start: 05-07-2020 OPIATE/OPIOID/BENZO [EXTENDED] PRESCRIPTION COMPLIANCE Neymar Tavallaee Start: 02-01-2020 Blood count complete auto&auto difrntl wbc Neymar Tavallaee Start: 02-01-2020 Comprehensive metabo lic 2000 panel Neymar Tavallaee Start: 02-01-2020 Hemoglobin glycosylated a1c Neymar Tavallaee Start: 02-01-2020 Sedimentation rate r bc automated Neymar Tavallaee Start: 11-01-2019 Comprehensive metabo lic 2000 panel Neymar Tavallaee Start: 11-01-2019 Hemoglobin glycosylated a1c Neymar Tavallaee Start: 04-28-2019 Drug Screen, Pain Management with Reflex if Positive Linda Andres Start: 07-06-2018 [object Object] Comment on above: Result Comment: AGE- SPECIFIC REFERENCE RANGES FOR SERUM PSA REFERENCE RANGE NG/ML AGE ASIANS BLACKS WHITE 40-49 0-2 0-2 0-2.5 50-59 0-3 0-4 0-3.5 60-69 0-4 0-4.5 0-4.5 70-79 0-5 0-5.5 0-6.5 PSA INCREASES WITH AGE, RACE, AND EJACULATION WITHIN 48 HRS. [facility] VOL24,NO.2, , PG.339 Performed By: #### [id number] #### JANESErlinda Rascon[facility] [place] [address] Start: 11-05-2017 Colonoscopy Neymar Xavier Work Phone: Comment on above: DIVERTICULOSIS, H/O COLON POLYPS, REPEAT 3 YEARS; Arthroplasty of knee Linda moore Comment on above: / - 03/2007; End: 11-05-2017 Colonoscopy Linda Andres Prosthetic arthropla sty of the hip Linda Andres Comment on above: OCTOBER 2006; Total replacement of hip Indio Xavier Work Phone: Comment on above: OCTOBER 2006; Plan of Treatment Date Care Activity Detail Author Start: 02-13-2026 Urine screening for protein Diabetes: Urine Protein Screening [facility] Start: 01-30-2026 Lipid panel Lipid Panel [facility] Start: 08-16-2025 End: 08-16-2025 Patient encounter procedure 08/16/2025 9:00 AM EST Office Visit [facility] [address] [place] [phone] Neymar Xavier MD [address] [place] [address] [facility] Start: 08-02-2025 Medicare Annual Wellness Visit Medicare Annual Wellness Visit (AWV) [facility] Start: 08-01-2025 End: 08-01-2025 Patient encounter procedure 08/01/2025 9:30 AM EST Office Visit [facility] [address] [place] [phone] Neymar Xavier MD [address] [place] [address] [facility] Start: 06-19-2025 End: 06-19-2025 Patient encounter procedure 06/19/2025 8:00 AM EST Office Visit [facility] [address] [place] [address] Neymar Xavier MD [address] [place] [address] [facility] Start: 05-16-2025 Hemoglobin A1c measurement Diabetes: Hemoglobin A1C [facility] Start: 05-09-2025 Hemoglobin A1c measurement Diabetes: Hemoglobin A1C [facility] Start: 05-08-2025 End: 05-08-2025 Anticoagulant drug monitoring 05/08/2025 9:45 AM EST Anticoagulation - Warfarin Visit [address] [phone] [facility] Start: 05-02-2025 Hemoglobin A1c measurement Diabetes: Hemoglobin A1C [facility] Start: 04-13-2025 End: 04-13-2025 Patient encounter procedure 04/13/2025 3:30 PM EDT Office Visit [facility] [address] [place] [address] Neymar Xavier MD [address] [place] [address] [facility] Start: 04-10-2025 End: 04-10-2025 Anticoagulant drug monitoring 04/10/2025 9:30 AM EDT Anticoagulation - Warfarin Visit [address] [phone] [facility] Start: 03-16-2025 End: 03-16-2025 Patient encounter procedure 03/16/2025 4:00 PM EDT Office Visit [facility] [address] [place] [place] [address] Neymar Xavier MD [address] [place] [address] [facility] Start: 03-13-2025 End: 03-13-2025 Anticoagulant drug monitoring 03/13/2025 10:00 AM EDT Anticoagulation - Warfarin Visit [facility] [address] [place] [address] [facility] Start: 02-27-2025 Influenza vaccination Influenza Vacc ine (#1) [facility] Start: 02-14-2025 End: 02-14-2025 Anticoagulant drug monitoring 02/14/2025 10:00 AM EDT Anticoagulation - Warfarin Visit [place] [id number] [place] [address] [facility] Start: 02-13-2025 End: 02-13-2026 Comprehensive metabolic 2000 panel - Serum or Plasma Comprehensive Metabolic Panel Lab Routine Hypercholesterolemia Primary osteoarthritis of left hip Expected: 02/13/2025 (Approximate), Expires: 02/13/2026 [facility] Work Phone: Comment on above: Expected: 02/13/2025 (Approximate), Expires: 02/13/2026 Start: 02-13-2025 End: 02-13-2026 Hemoglobin A1c/Hemoglobin.total in Blood Hemoglobin A1C Lab Routine Type 2 diabetes mellitus with hyperglycemia, without long-term current use of insulin Expected: 02/13/2025 (Approximate), Expires: 02/13/2026 [facility] Work Phone: Comment on above: Expected: 02/13/2025 (Approximate), Expires: 02/13/2026 Start: 02-13-2025 End: 02-13-2026 Microalbumin/Creatinin e [Mass Ratio] in Urine Albumin-Creatinine Ratio, Urine Random Lab Routine Type 2 diabetes mellitus with hyperglycemia, without long-term current use of insulin Expected: 02/13/2025 (Approximate), Expires: 02/13/2026 [facility] Work Phone: Comment on above: Expected: 02/13/2025 (Approximate), Expires: 02/13/2026 Start: 02-13-2025 End: 02-13-2026 MR Hip - left WO contrast MR hip left wo IV contrast Imaging Routine Primary osteoarthritis of left hip Expected: 02/13/2025, Expires: 02/13/2026 [facility] Service Area Work Phone: Comment on above: Expected: 02/13/2025 , Expires: 02/13/2026 Start: 02-13-2025 End: 02-13-2025 Patient encounter procedure 02/13/2025 9:00 AM EDT Office Visit [facility] [address] [place] [address] Neymar Xavier MD [address] [place] [address] [facility] Start: 02-06-2025 End: 02-06-2026 Comprehensive metabolic 2000 panel - Serum or Plasma Comprehensive Metabolic Panel Lab Routine Benign essential hypertension Type 2 diabetes mellitus with hyperglycemia, without long-term current use of insulin Hypercholesterolemia Hypertriglyceridemia Expected: 02/06/2025 (Approximate), Expires: 02/06/2026 [facility] Area Work Phone: Comment on above: Expected: 02/06/2025 (Approximate), Expires: 02/06/2026 Start: 02-06-2025 End: 02-06-2026 Hemoglobin A1c/Hemoglobin.total in Blood Hemoglobin A1C Lab Routine Type 2 diabetes mellitus with hyperglycemia, without long-term current use of insulin Expected: 02/06/2025 (Approximate), Expires: 02/06/2026 [facility] Work Phone: Comment on above: Expected: 02/06/2025 (Approximate), Expires: 02/06/2026 Start: 02-06-2025 End: 02-06-2027 Lower extremity venous duplex left Lower extremity venous duplex left Vascular Ultrasound Routine Left thigh pain Expected: 02/06/2025 (Approximate), Expires: 02/06/2027 [facility] Work Phone: Comment on above: Expected: 02/06/2025 (Approximate), Expires: 02/06/2027 Start: 02-06-2025 End: 02-06-2026 XR Femur - left 2 Views XR femur left 2+ views Imaging Routine Left thigh pain Expected: 02/06/2025, Expires: 02/06/2026 [facility] Work Phone: Comment on above: Expected: 02/06/2025 , Expires: 02/06/2026 Start: 02-06-2025 End: 02-06-2025 Patient encounter procedure 02/06/2025 9:00 AM EDT Office Visit [facility] [address] [place] [address] Neymar Xavier MD [address] [facility] [place] [address] [facility] Start: 01-10-2025 Lipid panel Lipid Panel [facility] Start: 10-25-2024 End: 10-25-2024 Anticoagulant drug monitoring 10/25/2024 10:15 AM EDT Anticoagulation - Warfarin Visit [address] [address] [facility] Start: 10-18-2024 End: 10-18-2024 Patient encounter procedure 10/18/2024 11:15 AM EDT Office Visit [facility] [address] [address] Neymar Xavier MD [address] [facility] [place] [address] [facility] Start: 10-11-2024 End: 10-11-2024 Anticoagulant drug monitoring 10/11/2024 10:00 AM EDT Anticoagulation - Warfarin Visit [address] [address] [facility] Start: 10-04-2024 End: 04-08-2025 Patient encounter procedure 10/04/2024 11:45 AM EDT Office Visit [facility] [address] [place] [phone] Neyamr Xavier MD [address] [place] [address] [facility] Start: 10-02-2024 Hemoglobin A1c measurement Diabetes: Hemoglobin A1C [facility] Start: 09-27-2024 End: 09-27-2025 CBC W Auto Differential panel - Blood CBC and Auto Differential Lab Routine Type 2 diabetes mellitus with hyperglycemia, without long-term current use of insulin Pneumonia of left lower lobe due to infectious organism Benign essential hypertension Abnormal CT scan of lung Expected: 09/27/2024 (Approximate), Expires: 09/27/2025 [facility] Work Phone: Comment on above: Expected: 09/27/2024 (Approximate), Expires: 09/27/2025 Start: 09-27-2024 End: 09-27-2025 Comprehensive metabolic 2000 panel - Serum or Plasma Comprehensive Metabolic Panel Lab Routine Type 2 diabetes mellitus with hyperglycemia, without long-term current use of insulin Pneumonia of left lower lobe due to infectious organism Benign essential hypertension Abnormal CT scan of lung Expected: 09/27/2024 (Approximate), Expires: 09/27/2025 [facility] Work Phone: Comment on above: Expected: 09/27/2024 (Approximate), Expires: 09/27/2025 Start: 09-27-2024 End: 09-27-2025 CT Chest W contrast IV CT chest w IV contrast Imaging Routine Abnormal CT scan of lung Expected: 09/27/2024, Expires: 09/27/2025 [facility] Work Phone: Comment on above: Expected: 09/27/2024 , Expires: 09/27/2025 Start: 09-27-2024 End: 09-27-2025 Protein electrophoresis panel - Serum or Plasma Serum Protein Electrophoresis Lab Routine Abnormal CT scan of lung Expected: 09/27/2024 (Approximate), Expires: 09/27/2025 [facility] Work Phone: Comment on above: Expected: 09/27/2024 (Approximate), Expires: 09/27/2025 Start: 09-27-2024 End: 09-27-2025 Urine Protein Electrophoresis Urine Protein Electrophoresis Lab Routine Abnormal CT scan of lung Expected: 09/27/2024 (Approximate), Expires: 09/27/2025 [facility] Service Area Work Phone: Comment on above: Expected: 09/27/2024 (Approximate), Expires: 09/27/2025 Start: 09-22-[address] [facility] Start: 09-21-2024 [facility] Start: 09-21-2024 Care planning and problem solving actions [facility] Start: 09-21-2024 Verification routine [facility] Start: 09-20-2024 Following clinical pathway protocol [facility] Start: 09-20-2024 Assessment of risk o f venous thromboembolism [facility] Start: 09-20-2024 Bacteria identified in Sputum by Culture [facility] Start: 09-20-2024 Cardiac monitoring [facility] Start: 09-20-2024 Care regimes management [facility] Start: 09-20-2024 Catheterization of vein [facility] Start: 09-20-2024 Elevation of head of bed [facility] Start: 09-20-2024 Insertion of cathete r into peripheral vein [facility] Start: 09-20-2024 Measuring intake and output [facility] Start: 09-20-2024 Notification of physician [facility] Start: 09-20-2024 Oxygen therapy [facility] Start: 09-20-2024 Providing care according to standard [facility] Start: 09-20-2024 Provision of activit y privileges [facility] Start: 09-20-2024 Referral to occupational therapist [facility] Start: 09-20-2024 Referral to service [facility] Start: 09-20-2024 Respiratory secretio n precautions [facility] Start: 09-20-2024 Vital signs measurements [facility] Start: 09-20-2024 Measurement of occul t blood in stool specimen using immunoassay [facility] Start: 09-20-2024 Gas panel - Arterial blood [facility] Start: 09-20-2024 End: 09-20-2024 [facility] Start: 09-20-2024 Verification routine [facility] Start: 09-20-2024 Admission procedure [facility] Start: 09-20-2024 CT Chest WO contrast [facility] Start: 09-20-2024 CT of chest without contrast Chest without Contrast [facility] Start: 09-20-2024 Hospital admission, emergency, from emergency room, medical nature [facility] Start: 09-20-2024 Continuous positive airway pressure ventilation treatment [facility] Start: 09-20-2024 [facility] Start: 09-20-2024 Continuous pulse oximetry [facility] Start: 09-20-2024 End: 09-20-2024 [facility] Start: 09-20-2024 Bacteria identified in Blood by Culture Blood Culture [facility] Start: 09-20-2024 Bacteria identified in Urine by Culture Urine Culture [facility] Start: 09-20-2024 Patient referral to dietitian [facility] Start: 09-16-2024 Medicare Annual Wellness Visit Medicare Annual Wellness Visit (AWV) [facility] Start: 08-16-2024 End: 08-16-2024 Anticoagulant drug monitoring 08/16/2024 10:30 AM EST Anticoagulation - Warfarin Visit [place] [id number] [phone] [facility] Start: 08-01-2024 End: 08-01-2025 Comprehensive metabolic 2000 panel - Serum or Plasma Comprehensive Metabolic Panel Lab Routine Benign essential hypertension Type 2 diabetes mellitus with hyperglycemia, without long-term current use of insulin Hypercholesterolemia Hypertriglyceridemia Type 2 diabetes mellitus with diabetic cataract, without long-term current use of insulin Psoriatic arthritis (Multi) Chronic atrial fibrillation, unspecified (Multi) Expected: 08/01/2024 (Approximate), Expires: 08/01/2025 [facility] Service Area Work Phone: Comment on above: Expected: 08/01/2024 (Approximate), Expires: 08/01/2025 Start: 08-01-2024 End: 08-01-2025 Hemoglobin A1c/Hemoglobin.total in Blood Hemoglobin A1C Lab Routine Type 2 diabetes mellitus with hyperglycemia, without long-term current use of insulin Expected: 08/01/2024 (Approximate), Expires: 08/01/2025 [facility] Work Phone: Comment on above: Expected: 08/01/2024 (Approximate), Expires: 08/01/2025 Start: 08-01-2024 End: 08-01-2025 Lipid 1996 panel - Serum or Plasma Lipid Panel Lab Routine Hypercholesterolemia Hypertriglyceridemia Expected: 08/01/2024 (Approximate), Expires: 08/01/2025 [facility] Work Phone: Comment on above: Expected: 08/01/2024 (Approximate), Expires: 08/01/2025 Start: 08-01-2024 End: 08-01-2025 Prostate specific Ag [Mass/volume] in Serum or Plasma Prostate Specific Antigen, Screen Lab Routine Special screening for malignant neoplasm of prostate Expected: 08/01/2024 (Approximate), Expires: 08/01/2025 [facility] Work Phone: Comment on above: Expected: 08/01/2024 (Approximate), Expires: 08/01/2025 Start: 08-01-2024 End: 08-01-2025 TSH with reflex to Free T4 if abnormal TSH with reflex to Free T4 if abnormal Lab Routine Hypercholesterolemia Psoriatic arthritis (Multi) Chronic atrial fibrillation, unspecified (Multi) Expected: 08/01/2024 (Approximate), Expires: 08/01/2025 [facility] Work Phone: Comment on above: Expected: 08/01/2024 (Approximate), Expires: 08/01/2025 Start: 05-27-2024 End: 02-24-2025 Comprehensive metabolic 2000 panel - Serum or Plasma Comprehensive metabolic panel Lab Routine Type 2 diabetes mellitus with hyperglycemia, without long-term current use of insulin (Multi) Expected: 05/27/2024 (Approximate), Expires: 02/24/2025 [facility] Service Area Work Phone: Comment on above: Expected: 05/27/2024 (Approximate), Expires: 02/24/2025 Start: 05-27-2024 Hemoglobin A1c measurement Diabetes: Hemoglobin A1C [facility] Start: 05-27-2024 End: 02-24-2025 Hemoglobin A1c/Hemoglobin.total in Blood Hemoglobin A1C Lab Routine Type 2 diabetes mellitus with hyperglycemia, without long-term current use of insulin (Multi) Expected: 05/27/2024 (Approximate), Expires: 02/24/2025 [facility] Work Phone: Comment on above: Expected: 05/27/2024 (Approximate), Expires: 02/24/2025 Start: 05-23-2024 End: 05-23-2024 Patient encounter procedure 05/23/2024 8:30 AM EST Office Visit [facility] [address] [place] [phone] Neymar Xavier MD [address] [place] [address] [facility] Start: 04-12-2024 Hemoglobin A1c measurement Diabetes: Hemoglobin A1C [facility] Start: 03-17-2024 Pneumococcal Vaccine : 65+ Years (2 - PCV) Pneumococcal Vaccine: 65+ Years (2 - PCV) [facility] Start: 03-09-2024 End: 03-09-2024 Anticoagulant drug monitoring 03/09/2024 10:00 AM EDT Anticoagulation - Warfarin Visit [address] [phone] [facility] Start: 02-28-2024 Influenza vaccination Influenza Vacc ine (#1) [facility] Start: 02-03-2024 End: 02-03-2024 Anticoagulant drug monitoring 02/03/2024 9:45 AM EDT Anticoagulation - Warfarin Visit [address] [phone] [facility] Start: 01-18-2024 End: 01-17-2025 Comprehensive metabolic 2000 panel - Serum or Plasma Comprehensive Metabolic Panel Lab Routine Type 2 diabetes mellitus with hyperglycemia, without long-term current use of insulin (Multi) Chronic atrial fibrillation, unspecified (Multi) Type 2 diabetes mellitus without complication, without long-term current use of insulin (Multi) Psoriatic arthritis (Multi) Type 2 diabetes mellitus with diabetic cataract, without long-term current use of insulin (Multi) Benign essential hypertension Expected: 01/18/2024 (Approximate), Expires: 01/17/2025 [facility] Service Area Work Phone: Comment on above: Expected: 01/18/2024 (Approximate), Expires: 01/17/2025 Start: 01-18-2024 End: 01-17-2025 Hemoglobin A1c/Hemoglobin.total in Blood Hemoglobin A1C Lab Routine Type 2 diabetes mellitus with hyperglycemia, without long-term current use of insulin (Multi) Expected: 01/18/2024 (Approximate), Expires: 01/17/2025 [facility] Work Phone: Comment on above: Expected: 01/18/2024 (Approximate), Expires: 01/17/2025 Start: 01-07-2024 Lipid panel Lipid Panel [facility] Start: 12-10-2023 Hemoglobin A1c measurement Diabetes: Hemoglobin A1C [facility] Start: 09-16-2023 End: 09-15-2024 Comprehensive metabolic 2000 panel - Serum or Plasma Comprehensive Metabolic Panel Lab Routine Type 2 diabetes mellitus without complication, without long-term current use of insulin (CMS/HCC) Routine general medical examination at health care facility Benign essential hypertension Type 2 diabetes mellitus with hyperglycemia, without long-term current use of insulin (CMS/HCC) Chronic atrial fibrillation, unspecified (CMS/HCC) Hypercholesterolemia Hypertriglyceridemia Expected: 09/16/2023 (Approximate), Expires: 09/15/2024 [facility] Service Area Work Phone: Comment on above: Expected: 09/16/2023 (Approximate), Expires: 09/15/2024 Start: 09-16-2023 End: 09-15-2024 Hemoglobin A1c/Hemoglobin.total in Blood Hemoglobin A1C Lab Routine Type 2 diabetes mellitus without complication, without long-term current use of insulin (CMS/HCC) Expected: 09/16/2023 (Approximate), Expires: 09/15/2024 [facility] Work Phone: Comment on above: Expected: 09/16/2023 (Approximate), Expires: 09/15/2024 Start: 09-16-2023 End: 09-15-2024 Lipid 1996 panel - Serum or Plasma Lipid Panel Lab Routine Hypercholesterolemia Hypertriglyceridemia Expected: 09/16/2023 (Approximate), Expires: 09/15/2024 [facility] Work Phone: Comment on above: Expected: 09/16/2023 (Approximate), Expires: 09/15/2024 Start: 09-16-2023 End: 09-15-2024 Prostate specific Ag [Mass/volume] in Serum or Plasma Prostate Specific Antigen, Screen Lab Routine Special screening for malignant neoplasm of prostate Expected: 09/16/2023 (Approximate), Expires: 09/15/2024 [facility] Work Phone: Comment on above: Expected: 09/16/2023 (Approximate), Expires: 09/15/2024 Start: 09-16-2023 End: 09-16-2023 Anticoagulant drug monitoring 09/16/2023 10:30 AM EDT Anticoagulation - Warfarin Visit [address] [phone] [facility] Start: 09-16-2023 End: 09-16-2023 Patient encounter procedure 09/16/2023 9:30 AM EDT Office Visit [facility] [address] [place] [address] Neymar Xavier MD [address] [place] [address] [facility] Start: 09-12-2023 Medicare Annual Wellness Visit Medicare Annual Wellness Visit (AWV) [facility] Start: 07-30-2023 Hemoglobin A1c measurement Diabetes: Hemoglobin A1C [facility] Start: 05-27-2023 End: 05-27-2023 Anticoagulant drug monitoring 05/27/2023 9:00 AM EST Anticoagulation - Warfarin Visit [address] [place] [phone] [facility] Start: 05-18-2023 End: 05-18-2024 CBC W Auto Differential panel - Blood CBC and Auto Differential Lab Routine Benign essential hypertension Chronic atrial fibrillation, unspecified (CMS/HCC) Type 2 diabetes mellitus with hyperglycemia, without long-term current use of insulin (CMS/HCC) Hypercholesterolemia Anemia, unspecified type Muscle cramp Expected: 05/18/2023 (Approximate), Expires: 05/18/2024 [facility] Service Area Work Phone: Comment on above: Expected: 05/18/2023 (Approximate), Expires: 05/18/2024 Start: 05-18-2023 End: 05-18-2024 Cobalamin (Vitamin B12) [Mass/volume] in Serum or Plasma Vitamin B12 Lab Routine Anemia, unspecified type Expected: 05/18/2023 (Approximate), Expires: 05/18/2024 [facility] Work Phone: Comment on above: Expected: 05/18/2023 (Approximate), Expires: 05/18/2024 Start: 05-18-2023 End: 05-18-2024 Comprehensive metabolic 2000 panel - Serum or Plasma Comprehensive Metabolic Panel Lab Routine Anemia, unspecified type Expected: 05/18/2023 (Approximate), Expires: 05/18/2024 [facility] Work Phone: Comment on above: Expected: 05/18/2023 (Approximate), Expires: 05/18/2024 Start: 05-18-2023 End: 05-18-2024 Ferritin [Mass/volume] in Serum or Plasma Ferritin Lab Routine Anemia, unspecified type Expected: 05/18/2023 (Approximate), Expires: 05/18/2024 [facility] Work Phone: Comment on above: Expected: 05/18/2023 (Approximate), Expires: 05/18/2024 Start: 05-18-2023 End: 05-18-2024 Folate [Mass/volume] in Serum or Plasma Folate Lab Routine Anemia, unspecified type Expected: 05/18/2023 (Approximate), Expires: 05/18/2024 [facility] Work Phone: Comment on above: Expected: 05/18/2023 (Approximate), Expires: 05/18/2024 Start: 05-18-2023 End: 05-18-2024 Hemoglobin A1c/Hemoglobin.total in Blood Hemoglobin A1C Lab Routine Type 2 diabetes mellitus with hyperglycemia, without long-term current use of insulin ([facility]) Expected: 05/18/2023 (Approximate), Expires: 05/18/2024 [facility] Work Phone: Comment on above: Expected: 05/18/2023 (Approximate), Expires: 05/18/2024 Start: 05-18-2023 End: 05-18-2024 Iron and Iron binding capacity panel - Serum or Plasma Iron and TIBC Lab Routine Anemia, unspecified type Expected: 05/18/2023 (Approximate), Expires: 05/18/2024 [facility] Work Phone: Comment on above: Expected: 05/18/2023 (Approximate), Expires: 05/18/2024 Start: 05-18-2023 End: 05-18-2024 Methylmalonate [Moles/volume] in Serum or Plasma Methylmalonic Acid Lab Routine Anemia, unspecified type Expected: 05/18/2023 (Approximate), Expires: 05/18/2024 [facility] Work Phone: Comment on above: Expected: 05/18/2023 (Approximate), Expires: 05/18/2024 Start: 05-13-2023 End: 05-13-2023 Patient encounter procedure 05/13/2023 10:45 AM EST Office Visit [facility] [address] [place] [address] Neymar Xavier MD [address] [place] [address] [facility] Start: 04-28-2023 End: 04-28-2023 Anticoagulant drug monitoring 04/28/2023 8:30 AM EDT Anticoagulation - Warfarin Visit [facility] [address] [address] [facility] Start: 04-08-2023 Hemoglobin A1c measurement Diabetes: Hemoglobin A1C [facility] Start: 04-07-2023 End: 04-07-2024 CBC W Auto Differential panel - Blood CBC and Auto Differential Lab Routine Cellulitis, unspecified cellulitis site Tenosynovitis of hand Localized swelling on left hand Expected: 04/07/2023 (Approximate), Expires: 04/07/2024 [facility] Work Phone: Comment on above: Expected: 04/07/2023 (Approximate), Expires: 04/07/2024 Start: 04-07-2023 End: 04-07-2024 Erythrocyte sedimentation rate Sedimentation Rate Lab Routine Cellulitis, unspecified cellulitis site Tenosynovitis of hand Localized swelling on left hand Expected: 04/07/2023 (Approximate), Expires: 04/07/2024 [facility] Work Phone: Comment on above: Expected: 04/07/2023 (Approximate), Expires: 04/07/2024 Start: 04-07-2023 End: 04-07-2024 Urate [Mass/volume] in Serum or Plasma Uric Acid Lab Routine Cellulitis, unspecified cellulitis site Tenosynovitis of hand Localized swelling on left hand Expected: 04/07/2023 (Approximate), Expires: 04/07/2024 [facility] Work Phone: Comment on above: Expected: 04/07/2023 (Approximate), Expires: 04/07/2024 Start: 04-07-2023 End: 04-07-2025 US.doppler Upper extremity vein - left Vascular US upper extremity venous duplex left Vascular Ultrasound Routine Localized swelling on left hand Expected: 04/07/2023 (Approximate), Expires: 04/07/2025 [facility] Service Area Work Phone: Comment on above: Expected: 04/07/2023 (Approximate), Expires: 04/07/2025 Start: 02-27-2023 Influenza vaccination Influenza Vacc ine (#1) [facility] Start: 01-19-2023 DTaP/Tdap/Td Vaccine s (2 - Td or Tdap) DTaP/Tdap/Td Vaccines (2 - Td or Tdap) [facility] Start: 01-12-2023 End: 01-13-2024 Comprehensive metabolic 2000 panel - Serum or Plasma Comprehensive Metabolic Panel Lab Routine Type 2 diabetes mellitus without complication, without long-term current use of insulin ([facility]) Psoriatic arthritis (CMS/[facility]) Chronic atrial fibrillation, unspecified (CMS/[facility]) Benign essential hypertension Hypercholesterolemia Hypertriglyceridemia Healthcare maintenance Expected: 01/12/2023 (Approximate), Expires: 01/13/2024 [facility] Service Area Work Phone: Comment on above: Expected: 01/12/2023 (Approximate), Expires: 01/13/2024 Start: 01-12-2023 End: 01-13-2024 Hemoglobin A1c/Hemoglobin.total in Blood Hemoglobin A1C Lab Routine Type 2 diabetes mellitus without complication, without long-term current use of insulin ([facility]) Expected: 01/12/2023 (Approximate), Expires: 01/13/2024 [facility] Work Phone: Comment on above: Expected: 01/12/2023 (Approximate), Expires: 01/13/2024 Start: 01-12-2023 End: 01-12-2023 Patient encounter procedure 01/12/2023 10:45 AM EDT Office Visit [facility] [address] [place] [phone] Neymar Xavier MD [address] [place] [address] [facility] Start: 01-01-2023 Lipid panel Lipid Panel [facility] Start: 12-03-2022 Hemoglobin A1c measurement Diabetes: Hemoglobin A1C [facility] Start: 09-10-2022 End: 09-11-2023 Comprehensive metabolic 2000 panel - Serum or Plasma Comprehensive Metabolic Panel Lab Routine Type 2 diabetes mellitus without complication, without long-term current use of insulin ([facility]/HCC) Expected: 09/10/2022 (Approximate), Expires: 09/11/2023 [facility] Work Phone: Comment on above: Expected: 09/10/2022 (Approximate), Expires: 09/11/2023 Start: 09-10-2022 End: 09-11-2023 Hemoglobin A1c/Hemoglobin.total in Blood Hemoglobin A1C Lab Routine Type 2 diabetes mellitus without complication, without long-term current use of insulin (CMS/HCC) Expected: 09/10/2022 (Approximate), Expires: 09/11/2023 [facility] Service Area Work Phone: Comment on above: Expected: 09/10/2022 (Approximate), Expires: 09/11/2023 Start: 09-10-2022 End: 09-11-2023 Hepatitis C virus Ab [Presence] in Serum Hepatitis C antibody Lab Routine Healthcare maintenance Expected: 09/10/2022 (Approximate), Expires: 09/11/2023 [facility] Work Phone: Comment on above: Expected: 09/10/2022 (Approximate), Expires: 09/11/2023 Start: 09-10-2022 End: 09-11-2023 Lipid 1996 panel - Serum or Plasma Lipid Panel Lab Routine Hypercholesterolemia Expected: 09/10/2022 (Approximate), Expires: 09/11/2023 [facility] Work Phone: Comment on above: Expected: 09/10/2022 (Approximate), Expires: 09/11/2023 Start: 09-10-2022 End: 09-11-2023 Prostate specific Ag [Mass/volume] in Serum or Plasma Prostate Specific Antigen, Screen Lab Routine Psoriatic arthritis (CMS/HCC) Expected: 09/10/2022 (Approximate), Expires: 09/11/2023 [facility] Work Phone: Comment on above: Expected: 09/10/2022 (Approximate), Expires: 09/11/2023 Start: 09-10-2022 FUV, Provider: Neymar Xavier, Status: Pen, Time: 11:15 AM FUV, Provider: Neymar Xavier, Status: Pen, Time: 11:15 AM [facility] Work Phone: Start: 09-10-2022 Patient encounter procedure MCRANNUAL, Provider: Neymar Xavier, Status: Pen, Time: 11:15 AM [facility] Work Phone: Start: 05-07-2022 FUV, Provider: Neymar Xavier, Status: Pen, Time: 12:30 PM FUV, Provider: Neymar Xavier, Status: Pen, Time: 12:30 PM [facility] Work Phone: Start: 01-08-2022 FUV, Provider: Neymar Xavier, Status: Pen, Time: 1:45 PM FUV, Provider: Neymar Xavier, Status: Pen, Time: 1:45 PM [facility] Work Phone: Start: 10-10-2021 COLON, Provider: Neymar Xavier, Status: Pen, Time: 11:30 AM COLON, Provider: Neymar Xavier, Status: Pen, Time: 11:30 AM [facility] Work Phone: Start: 09-10-2021 FUV, Provider: Neymar Xavier, Status: Pen, Time: 2:45 PM FUV, Provider: Neymar Xavier, Status: Pen, Time: 2:45 PM [facility] Work Phone: Start: 09-10-2021 Patient encounter procedure MCRANNUAL, Provider: Neymar Xavier, Status: Pen, Time: 2:45 PM [facility] Work Phone: Start: 09-05-2021 COLON, Provider: Neymar Xavier, Status: Pen, Time: 8:30 AM COLON, Provider: Neymar Xavier, Status: Pen, Time: 8:30 AM [facility] Work Phone: Start: 08-29-2021 Urine screening for protein Diabetes: Urine Protein Screening [facility] Start: 05-14-2021 FUV, Provider: Neymar Xavier, Status: Shayan, Time: 12:30 PM FUV, Provider: Neymar Xavier, Status: Shayan, Time: 12:30 PM [facility] Work Phone: Start: 2021 RSV High Risk: (Elderly (60+) or Population) (1 - 1-dose 75+ series) RSV High Risk: (Elderly (60+) or Population) (1 - 1-dose 75+ series) [facility] Start: 02-27-2021 Pneumococcal vaccination Pneumococcal Vaccine (2 of 2 - PCV) [facility] Start: 02-27-2021 Pneumococcal Vaccine : 65+ Years (2 - PCV) Pneumococcal Vaccine: 65+ Years (2 - PCV) [facility] Start: 02-27-2021 Pneumococcal Vaccine : 65+ Years (2 of 2 - PCV) Pneumococcal Vaccine: 65+ Years (2 of 2 - PCV) [facility] Start: 01-08-2021 FUV, Provider: Neymar Xavier, Status: Shayan, Time: 12:30 PM FUV, Provider: Neymar Xavier, Status: Shayan, Time: 12:30 PM [facility] Work Phone: Start: 05-03-2020 Blood count complete auto&auto difrntl wbc Complete Blood Count + Differential [facility] Work Phone: Start: 05-03-2020 Comprehensive metabolic 2000 panel Comprehensive Metabolic Panel [facility] Work Phone: Start: 05-03-2020 HbA1c (Bld) [Mass fraction] Hemoglobin A1C [facility] Work Phone: Start: 05-03-2020 Sedimentation rate r bc automated Sedimentation Rate, Erythrocyte [facility] Work Phone: Start: 02-01-2020 Comprehensive metabolic 2000 panel Comprehensive Metabolic Panel [facility] Work Phone: Start: 02-01-2020 HbA1c (Bld) [Mass fraction] Hemoglobin A1C [facility] Work Phone: Start: 02-16-2013 DTaP/Tdap/Td Vaccine s (2 - Td or Tdap) DTaP/Tdap/Td Vaccines (2 - Td or Tdap) [facility] Start: 2006 RSV patient s and/or patients aged 60+ years (1 - 1-dose 60+ series) RSV patients and/or patients aged 60+ years (1 - 1-dose 60+ series) [facility] Start: 1964 Hepatitis C screening Hepatitis C Sc [facility] Start: 1956 Diabetic foot examination Diabetes: Foot Exam [facility] End: 10-13-2024 CT Chest W contrast IV [facility] Service Area Work Phone: Comment on above: Once for 1 Occurrenc es starting 10/13/2024 until 10/13/2024 Folate [Moles/volume ] in Serum or Plasma [facility] Lactic acid measurement [facility] Magnesium measurement [facility] Patient referral [facility] Work Phone: Troponin T.cardiac [Mass/volume] in Serum or Plasma by High sensitivity method [facility] Urine culture [facility] End: 02-25-2024 XR Chest 2 Views [facility] Service Area Work Phone: Comment on above: Once for 1 Occurrenc es starting 02/25/2024 until 02/25/2024 [facility] Work Phone: NEGATED: Highlighted row has been ruled out! Planned Goals not documented [facility] Work Phone: Immunizations Immunization Date Immunization Notes Care Provider Carmen jordan 03-16-2025 influenza, high dose seasonal, preservative-free Neymar Xavier MD Work Phone: [facility] 03-15-2024 influenza, seasonal, injectable, preservative free Neymar Xavier MD Work Phone: [facility] Work Phone: 03-15-2024 influenza virus vacc ine, unspecified formulation Neymar Xavier MD Work Phone: [facility] Work Phone: 03-17-2023 pneumoc 20-viviana conj- dip cr,PF, (Prevnar) 0.5 mL vaccine Neymar Xavier MD Work Phone: [facility] Work Phone: 09-10-2022 diphtheria, tetanus toxoids and acellular pertussis vaccine, unspecified formulation Neymar Xavier MD Work Phone: [facility] Work Phone: 09-10-2022 pneumoc 20-viviana conj- dip cr,PF, (Prevnar 20, PF,) 0.5 mL vaccine Neymar Xavier MD Work Phone: [facility] Work Phone: 03-11-2022 influenza, high dose seasonal, preservative-free Neymar Xavier Work Phone: [facility] Work Phone: 03-11-2022 influenza, seasonal, injectable Neymar Xavier MD Work Phone: [facility] Work Phone: 03-11-2022 influenza virus vacc ine, unspecified formulation Neymar Xavier MD Work Phone: [facility] Work Phone: 03-12-2021 influenza, high dose seasonal, preservative-free Neymar Xavier Work Phone: [facility] Work Phone: 09-03-2020 Salome COVID-19 Vac cine 0.5 ML Intramuscular Suspension Neymar Xavier Work Phone: [facility] 02-28-2020 influenza, seasonal, injectable Neymar M Tavallaee Work Phone: [facility] Work Phone: Comment on above: Series: 02-28-2020 pneumococcal polysaccharide vaccine, 23 valent Neymar Princess Tavallaee Work Phone: [facility] Work Phone: Comment on above: Series: 03-02-2019 influenza, injectabl e, quadrivalent, preservative free Neymar M Tavallaee Work Phone: [facility] Work Phone: 03-24-2018 influenza, high dose seasonal, preservative-free Neymar M Tavallaee Work Phone: [facility] Work Phone: 03-31-2017 influenza, injectabl e, quadrivalent, preservative free Neymar M Tavallaee Work Phone: [facility] Work Phone: 01-19-2013 tetanus toxoid, redu varghese diphtheria toxoid, and acellular pertussis vaccine, adsorbed Neymar Princess Tavallaee Work Phone: [facility] 06-18-2009 novel influenza-H1N1 -09, preservative-free, injectable Neymar Princess Lopezallaee Work Phone: [facility] Work Phone: 04-24-2009 influenza virus vacc ine, whole virus Neymar Xavier Work Phone: [facility] Work Phone: 01-20-1989 hepatitis B vaccine, adult dosage Neymar Xavier MD Work Phone: [facility] Work Phone: 01-20-1989 hepatitis B vaccine, pediatric or pediatric/adolescent dosage Neymar Xavier Work Phone: [facility] Work Phone: 06-25-1988 hepatitis B vaccine, adult dosage Neymar Xavier MD Work Phone: [facility] Work Phone: 06-25-1988 hepatitis B vaccine, pediatric or pediatric/adolescent dosage Neymar Xavier Work Phone: [facility] Work Phone: 05-28-1988 hepatitis B vaccine, adult dosage Neymar Xavier MD Work Phone: [facility] Work Phone: 05-28-1988 hepatitis B vaccine, pediatric or pediatric/adolescent dosage Neymar Xavier Work Phone: [facility] Work Phone: Payers Date Payer Category Payer Self-pay 2021 Medicare ANTHEM MEDICARE ANTHEM MEDICARE ADVANTAGE [id number] 2021-Present [address] [place] [id number] 2021 Medicare (Managed Care) [facility] ADVANTAGE Member Subscriber Plan / Payer (Effective 2021-Present) Name: Hattie Valderrama Relation to Subscriber: Self Name: Hattie Valderrama Payer ID: [id number] (NAIC) Group ID: [id number] Type: Not on file Address: [address] [place] [id number] 2015 Unknown [id number] 1945 Unknown [id number] 2.16.840.1.930242.3.579. 2. 1945 Unknown [id number] 2.16.840.1.963189.3.579. 2. 1945 Unknown [id number] 2.16.840.1.566018.3.579. 2. 1946 Unknown [id number] 2.16.840.1.401016.3.579. 2.1068 1946 Unknown [id number] 2.16.840.1.656324.3.579. 2.1068 1946 Unknown [id number] 2.16.840.1.421869.3.579. 2.1068 1946 Unknown [id number] 2.16.840.1.324274.3.579. 2.1068 1946 Unknown [id number] 2.16.840.1.305104.3.579. 2.1068 1946 Unknown [id number] 2.16.840.1.919378.3.579. 2.1068 1946 Unknown [id number] 2.16.840.1.584028.3.579. 2.1068 1946 Unknown [id number] 2.16.840.1.612197.3.579. 2.1068 1946 Unknown [id number] 2.16.840.1.630734.3.579. 2.1068 1946 Unknown [id number] 2.16.840.1.162941.3.579. 2.1068 1946 Unknown [id number] 2.16.840.1.206143.3.579. 2.1068 1946 Unknown [id number] 2.16.840.1.660770.3.579. 2.1068 1946 Unknown [id number] 2.16.840.1.646909.3.579. 2.1069 1946 Unknown [id number] 2.16.840.1.256799.3.579. 2.1068 1946 Unknown [id number] 2.16.840.1.738812.3.579. 2.1244 1946 Unknown [id number] 2.16.840.1.320906.3.579. 2.1244 1946 Unknown [id number] 2.16.840.1.831364.3.579. 2.1244 1946 Unknown [id number] 2.16.840.1.637752.3.579. 2.1244 1946 Unknown [id number] 2.16.840.1.236250.3.579. 2.1242 1946 Unknown [id number] 2.16.840.1.415266.3.579. 2.1242 1946 Unknown [id number] 2.16.840.1.716653.3.579. 2.1242 1946 Unknown [id number] 2.16.840.1.576303.3.579. 2.1242 1946 Unknown [id number] 2.16.840.1.866961.3.579. 2.1242 1946 Unknown [id number] 2.16.840.1.762225.3.579. 2.1242 1946 Unknown [id number] 2.16.840.1.617801.3.579. 2.1242 1946 Unknown [id number] 2.16.840.1.892045.3.579. 2.1242 1946 Unknown [id number] 2.16.840.1.660246.3.579. 2.1242 1946 Unknown [id number] 2.16.840.1.710032.3.579. 2.1242 1946 Unknown [id number] 2.16.840.1.768042.3.579. 2.1242 1946 Unknown [id number] 2.16.840.1.237162.3.579. 2.1242 1946 Unknown [id number] 2.16.840.1.614758.3.579. 2.1242 1946 Unknown [id number] 2.16.840.1.871738.3.579. 2.1242 1946 Unknown [id number] 2.16.840.1.587066.3.579. 2.1242 1946 Unknown [id number] 2.16840.1.641632.3.579. 2.1242 1946 Unknown [id number] 2.840.1.723813.3.579. 2.1242 1946 Unknown [id number] 2.840.1.768445.3.579. 2.1242 1946 Unknown [id number] 2.840.1.624965.3.579. 2.1242 1946 Unknown [id number] 2.840.1.076991.3.579. 2.1242 1946 Unknown [id number] 2.840.1.499078.3.579. 2.1243 1946 Unknown [id number] 2.16840.1.671926.3.579. 2.1243 1946 Unknown [id number] 2.16840.1.019260.3.579. 2.1243 1946 Unknown [id number] 2.16840.1.749053.3.579. 2.1243 1946 Unknown [id number] 2.16840.1.916460.3.579. 2.1243 1946 Unknown [id number] 2.16.840.1.225656.3.579. 2.1244 1946 Unknown [id number] 2.16.840.1.158436.3.579. 2.1244 Unknown Unknown [id number] 2.16.840.1.485245.3.579. 2.462 Unknown [id number] 2.16.840.1.000380.3.579. 2.462 Unknown [id number] 2.16.840.1.084159.3.579. 2.462 Unknown [id number] 2.16.840.1.429113.3.579. 2.462 Unknown [id number] 2.16.840.1.757214.3.579. 2.462 Social History Date Type Detail Facility - - [facility] Work Phone: Start: 01-12-2023 End: 03-16-2025 Former smoker Former smoker [facility] Work Phone: Start: 01-12-2023 End: 09-20-2024 Tobacco smoking status NHIS Ex-smoker [facility] History of tobacco use Current smoker [facility] Work Phone: History of tobacco use Pipe Smoker [facility] Work Phone: History of tobacco use Passive smoker [facility] Work Phone: Start: 09-10-2022 End: 01-12-2023 Tobacco use and exposure Smokeless tobacco non-user [facility] Work Phone: Start: 01-12-2023 End: 04-13-2025 Alcohol intake Ex-drinker (finding) [facility] Work Phone: Start: 01-12-2023 End: 03-16-2025 Tobacco use panel [facility] Work Phone: Start: 1945 Sex Assigned At Not on file [facility] Work Phone: Start: 08-31-2022 End: 10-18-2024 Exposure to SARS-CoV-2 (event) Not sure [facility] Start: 05-24-2022 End: 09-20-2024 Sex Male (finding) [facility] Start: 1945 Sex Assigned At Male [facility] Start: 05-24-2022 Sex Male [facility] Medical Equipment Procedure Code Equipment Code Equipment Origin al Text Equipment Identifier Dates Accu-Chek SmartV iew In Vitro Strip TEST 4 TIMES DAILY. Quantity: 150 Refills: 11 Mckenna HANNABERNYLinda Start : 06-Apr-2019 Active Start: 04-06-2019 Accu-Chek SmartV iew In Vitro Strip TEST 4 TIMES DAILY. Quantity: 150 Refills: Esther Andres ACCESS RN-BERNYLinda Start : 06-Apr-2019 Active Start: 04-06-2019 Accu-Chek SmartV iew In Vitro Strip TEST 4 TIMES DAILY. Quantity: 150 Refills: 11 Mckenna HANNABERNYLinda Start : 06-Apr-2019 Active Start: 04-06-2019 Accu-Chek SmartV iew In Vitro Strip TEST 4 TIMES DAILY. Quantity: 150 Refills: 11 Linda Betancourt Start : 06-Apr-2019 Active Start: 04-06-2019 Accu-Chek SmartV iew In Vitro Strip TEST 4 TIMES DAILY. Quantity: 150 Refills: 0 Neymar Xavier MD Start : 06-Apr-2019 Active Start: 04-06-2019 Accu-Chek SmartV iew In Vitro Strip TEST 4 TIMES DAILY. Quantity: 300 Refills: 3 Neymar Xavier MD Start : 06-Apr-2019 Active Start: 04-06-2019 Accu-Chek SmartV iew In Vitro Strip TEST 4 TIMES DAILY. Quantity: 300 Refills: 3 Neymar Xavier MD Start : 06-Apr-2019 Active Start: 04-06-2019 Accu-Chek SmartV iew In Vitro Strip TEST 4 TIMES DAILY. Quantity: 300 Refills: 3 Neymar Xavier MD Start : 06-Apr-2019 Active Start: 04-06-2019 Accu-Chek SmartV iew In Vitro Strip TEST 4 TIMES DAILY. Quantity: 300 Refills: 3 Neymar Xavier MD Start : 06-Apr-2019 Active Start: 04-06-2019 Accu-Chek SmartV iew In Vitro Strip TEST 4 TIMES DAILY. Quantity: 300 Refills: 3 Neymar Xavier MD Start : 06-Apr-2019 Active Start: 04-06-2019 Accu-Chek SmartV iew In Vitro Strip TEST 4 TIMES DAILY. Quantity: 300 Refills: 3 Neymar Xavier MD Start : 06-Apr-2019 Active Start: 04-06-2019 Accu-Chek SmartV iew In Vitro Strip TEST 4 TIMES DAILY. Quantity: 300 Refills: 3 Neymar Xavier MD Start : 06-Apr-2019 Active Start: 04-06-2019 Accu-Chek SmartV iew In Vitro Strip TEST 4 TIMES DAILY. Quantity: 300 Refills: 3 Neymar Xavier MD Start : 06-Apr-2019 Active Start: 04-06-2019 TEST 4 TIMES DAILY. [id number] Start : 09-10-2022 End: 09-16-2023 TEST 3 TIMES DAILY. [id number] Start : 09-16-2023 End: 10-18-2024 4 times a day. T EST 4 TIMES DAILY. [id number] Start: 04-06-2019 End: 09-10-2022 TEST 4 times daily [id number] Start: 10-18-2024 1 strip 2 times a day. [id number] Start: 12-05-2024 Goals Date Patient Goal Desired Activity /State Functional Status Date Assessment Result Facility 04-13-2025 Functional status 123/80 [facility] Work Phone: 04-13-2025 Vital signs 89 04/13/2025 3: 19 PM EDT Minda Carmichael MA [facility] Work Phone: 04-13-2025 Patient Health Questionnaire 2 item (PHQ-2) [Reported] [facility] Work Phone: 04-13-2025 [facility] Work Phone: 03-16-2025 Patient Health Questionnaire 2 item (PHQ-2) [Reported] [facility] Work Phone: 02-13-2025 Patient Health Questionnaire 2 item (PHQ-2) [Reported] [facility] Work Phone: 02-06-2025 Patient Health Questionnaire 2 item (PHQ-2) [Reported] [facility] Work Phone: 10-18-2024 Patient Health Questionnaire 2 item (PHQ-2) [Reported] [facility] Work Phone: 09-22-2024 Functional status Chair [facility] Work Phone: NEGATED: Highlighted row Functional performance Functional status health issues are not documented Disease [facility] Work Phone: Mental Status Date Assessment Result Facility 09-22-2024 Cognitive function Voice/Name [facility] Work Phone: NEGATED: Highlighted row Cognitive function [Interpretation] Cognitive status health issues are not documented Disease [facility] Work Phone: Clinical Notes 09-10-2022 to 04-13-2025 Neymar Xavier MD - 04/13/2025 3:30 PM EDFabio Xavier MD - 03/16/2025 4:00 PM Riley Xavier MD - 02/06/2025 9:00 AM Riley Xavier MD - 09/27/2024 4:00 PM EDT Note Date & Type Note Facility 04-13-2025 History of Present illness Narrative Subjective Patient ID: Hattie Valderrama is a 80 y.o. male who presents for Follow-up (1 MONTH FU + LABS ). FU WITH LABS Review of Systems Constitutional: Negative. Negative for chills and fever. HENT: Negative. Negative for congestion. Eyes: Negative. Negative for discharge. Respiratory: Negative. Negative for cough, shortness of breath and wheezing. Cardiovascular: Negative. Negative for chest pain, palpitations and leg swelling. Gastrointestinal: Negative. Negative for abdominal distention, abdominal pain, constipation, diarrhea, nausea and vomiting. Endocrine: Negative. Genitourinary: Negative. Negative for dysuria and urgency. Musculoskeletal: Negative. Negative for back pain, joint swelling and neck stiffness. Skin: Negative. Negative for rash. Allergic/Immunologic: Negative. Negative for immunocompromised state. Neurological: Negative. Negative for light-headedness, numbness and headaches. Hematological: Negative. Negative for adenopathy. Psychiatric/Behavioral: Negative. Negative for agitation, behavioral problems and confusion. All other systems reviewed and are negative. Objective Physical Exam Vitals reviewed. Constitutional: General: He is not in acute distress. Appearance: Normal appearance. HENT: Head: Normocephalic and atraumatic. Nose: Nose normal. Eyes: Conjunctiva/sclera: Conjunctivae normal. Pupils: Pupils are equal, round, and reactive to light. Neck: Vascular: No carotid bruit. Cardiovascular: Rate and Rhythm: Normal rate. Rhythm irregular. Pulses: Normal pulses. Heart sounds: No gallop. Pulmonary: Effort: Pulmonary effort is normal. No respiratory distress. Breath sounds: Normal breath sounds. No wheezing. Abdominal: General: Bowel sounds are normal. Palpations: Abdomen is soft. Tenderness: There is no abdominal tenderness. Musculoskeletal: General: Normal range of motion. Cervical back: Normal range of motion. No rigidity. Lymphadenopathy: Cervical: No cervical adenopathy. Skin: General: Skin is warm. Findings: No rash. Neurological: General: No focal deficit present. Mental Status: He is alert and oriented to person, place, and time. Psychiatric: Mood and Affect: Mood normal. Behavior: Behavior normal. BP 123/80 Pulse 89 Ht 1.829 m (6') Wt 103 kg (227 lb 11.2 oz) SpO2 95% BMI 30.88 kg/m PSA, TOTAL Date/Time Value Ref Range Status 01/30/2025 10:15 AM 1.98 < OR = 4.00 ng/mL Final Comment: The total PSA value from this assay system is standardized against the WHO standard. The test result will be approximately 20% lower when compared to the equimolar-standardized total PSA ([place]). Comparison of serial PSA results should be interpreted with this fact in mind. This test was performed using the Siemens chemiluminescent method. Values obtained from different assay methods cannot be used interchangeably. PSA levels, regardless of value, should not be interpreted as absolute evidence of the presence or absence of disease. HEMOGLOBIN A1c Date/Time Value Ref Range Status 02/13/2025 10:04 AM 7.2 (H) <5.7 % Final Comment: For someone without known diabetes, a hemoglobin A1c value of 6.5% or greater indicates that they may have diabetes and this should be confirmed with a follow-up test. For someone with known diabetes, a value <7% indicates that their diabetes is well controlled and a value greater than or equal to 7% indicates suboptimal control. A1c targets should be individualized based on duration of diabetes, age, comorbid conditions, and other considerations. Currently, no consensus exists regarding use of hemoglobin A1c for diagnosis of diabetes for children. Assessment/Plan Problem List Items Addressed This Visit Benign essential hypertension - Primary Chronic atrial fibrillation, unspecified (Multi) INR 2 HTN addressed as follow: MONITOR BP GOAL BP LOWER THAN 130/80 LOW SALT EXERCISE DAILY FU BEFORE documented in this encounter [facility] Work Phone: 03-16-2025 History of Present illness Narrative Subjective Patient ID: Hattie Valderrama is a 79 y.o. male who presents for Follow-up (1 month fu + MRI). Here for fu after MRI, feels better Review of Systems Constitutional: Negative. Negative for chills and fever. HENT: Negative. Negative for congestion. Eyes: Negative. Negative for discharge. Respiratory: Negative. Negative for cough, shortness of breath and wheezing. Cardiovascular: Negative. Negative for chest pain, palpitations and leg swelling. Gastrointestinal: Negative. Negative for abdominal distention, abdominal pain, constipation, diarrhea, nausea and vomiting. Endocrine: Negative. Genitourinary: Negative. Negative for dysuria and urgency. Musculoskeletal: Positive for arthralgias. Negative for back pain, joint swelling and neck stiffness. Skin: Negative. Negative for rash. Allergic/Immunologic: Negative. Negative for immunocompromised state. Neurological: Negative. Negative for light-headedness, numbness and headaches. Hematological: Negative. Negative for adenopathy. Psychiatric/Behavioral: Negative. Negative for agitation, behavioral problems and confusion. All other systems reviewed and are negative. Objective Physical Exam Vitals reviewed. Constitutional: General: He is not in acute distress. Appearance: Normal appearance. HENT: Head: Normocephalic and atraumatic. Nose: Nose normal. Eyes: Conjunctiva/sclera: Conjunctivae normal. Pupils: Pupils are equal, round, and reactive to light. Neck: Vascular: No carotid bruit. Cardiovascular: Rate and Rhythm: Normal rate and regular rhythm. Pulses: Normal pulses. Heart sounds: No gallop. Pulmonary: Effort: Pulmonary effort is normal. No respiratory distress. Breath sounds: Normal breath sounds. No wheezing. Abdominal: General: Bowel sounds are normal. Palpations: Abdomen is soft. Tenderness: There is no abdominal tenderness. Musculoskeletal: General: Normal range of motion. Cervical back: Normal range of motion. No rigidity. Lymphadenopathy: Cervical: No cervical adenopathy. Skin: General: Skin is warm. Findings: No rash. Neurological: General: No focal deficit present. Mental Status: He is alert and oriented to person, place, and time. Psychiatric: Mood and Affect: Mood normal. Behavior: Behavior normal. BP (!) 151/98 Pulse 94 Ht 1.829 m (6') Wt 104 kg (229 lb) SpO2 95% BMI 31.06 kg/m PSA, TOTAL Date/Time Value Ref Range Status 01/30/2025 10:15 AM 1.98 < OR = 4.00 ng/mL Final Comment: The total PSA value from this assay system is standardized against the WHO standard. The test result will be approximately 20% lower when compared to the equimolar-standardized total PSA ([place]). Comparison of serial PSA results should be interpreted with this fact in mind. This test was performed using the Siemens chemiluminescent method. Values obtained from different assay methods cannot be used interchangeably. PSA levels, regardless of value, should not be interpreted as absolute evidence of the presence or absence of disease. HEMOGLOBIN A1c Date/Time Value Ref Range Status 02/13/2025 10:04 AM 7.2 (H) <5.7 % Final Comment: For someone without known diabetes, a hemoglobin A1c value of 6.5% or greater indicates that they may have diabetes and this should be confirmed with a follow-up test. For someone with known diabetes, a value <7% indicates that their diabetes is well controlled and a value greater than or equal to 7% indicates suboptimal control. A1c targets should be individualized based on duration of diabetes, age, comorbid conditions, and other considerations. Currently, no consensus exists regarding use of hemoglobin A1c for diagnosis of diabetes for children. Assessment/Plan Problem List Items Addressed This Visit Benign essential hypertension Relevant Medications amLODIPine (Norvasc) 5 mg tablet Primary osteoarthritis of left hip - Primary MRI d/w pt declined ortho referral HTN addressed as follow: MONITOR BP GOAL BP LOWER THAN 130/80 LOW SALT EXERCISE DAILY Fu 1 mo bp Fu before documented in this encounter [facility] Work Phone: 02-06-2025 History of Present illness Narrative Subjective Patient ID: Hattie Valderrama is a 79 y.o. male who presents for Follow-up (6 mo fu lab). Here for fu with labs Left inner thigh pain for 1 -2 weeks, no recent trauma Review of Systems Constitutional: Negative. Negative for chills and fever. HENT: Negative. Negative for congestion. Eyes: Negative. Negative for discharge. Respiratory: Negative. Negative for cough, shortness of breath and wheezing. Cardiovascular: Negative. Negative for chest pain, palpitations and leg swelling. Gastrointestinal: Negative. Negative for abdominal distention, abdominal pain, constipation, diarrhea, nausea and vomiting. Endocrine: Negative. Genitourinary: Negative. Negative for dysuria and urgency. Musculoskeletal: Positive for back pain. Negative for joint swelling and neck stiffness. Skin: Negative. Negative for rash. Allergic/Immunologic: Negative. Negative for immunocompromised state. Neurological: Negative. Negative for light-headedness, numbness and headaches. Hematological: Negative. Negative for adenopathy. Psychiatric/Behavioral: Negative. Negative for agitation, behavioral problems and confusion. All other systems reviewed and are negative. Objective Physical Exam Vitals reviewed. Constitutional: General: He is not in acute distress. Appearance: He is obese. HENT: Head: Normocephalic and atraumatic. Nose: Nose normal. Eyes: Conjunctiva/sclera: Conjunctivae normal. Pupils: Pupils are equal, round, and reactive to light. Neck: Vascular: No carotid bruit. Cardiovascular: Rate and Rhythm: Normal rate and regular rhythm. Pulses: Normal pulses. Heart sounds: No gallop. Pulmonary: Effort: Pulmonary effort is normal. No respiratory distress. Breath sounds: Normal breath sounds. No wheezing. Abdominal: General: Bowel sounds are normal. Palpations: Abdomen is soft. Tenderness: There is no abdominal tenderness. Musculoskeletal: General: Tenderness (left inner thigh) present. Normal range of motion. Cervical back: Normal range of motion. No rigidity. Lymphadenopathy: Cervical: No cervical adenopathy. Skin: General: Skin is warm. Findings: No rash. Neurological: General: No focal deficit present. Mental Status: He is alert and oriented to person, place, and time. Psychiatric: Mood and Affect: Mood normal. Behavior: Behavior normal. BP 118/80 Pulse 92 Ht 1.829 m (6') Wt 101 kg (222 lb) BMI 30.11 kg/m PSA, TOTAL Date/Time Value Ref Range Status 01/30/2025 10:15 AM 1.98 < OR = 4.00 ng/mL Final Comment: The total PSA value from this assay system is standardized against the WHO standard. The test result will be approximately 20% lower when compared to the equimolar-standardized total PSA ([place]). Comparison of serial PSA results should be interpreted with this fact in mind. This test was performed using the Siemens chemiluminescent method. Values obtained from different assay methods cannot be used interchangeably. PSA levels, regardless of value, should not be interpreted as absolute evidence of the presence or absence of disease. HEMOGLOBIN A1c Date/Time Value Ref Range Status 01/30/2025 10:15 AM 7.0 (H) <5.7 % Final Comment: For someone without known diabetes, a hemoglobin A1c value of 6.5% or greater indicates that they may have diabetes and this should be confirmed with a follow-up test. For someone with known diabetes, a value <7% indicates that their diabetes is well controlled and a value greater than or equal to 7% indicates suboptimal control. A1c targets should be individualized based on duration of diabetes, age, comorbid conditions, and other considerations. Currently, no consensus exists regarding use of hemoglobin A1c for diagnosis of diabetes for children. Assessment/Plan Problem List Items Addressed This Visit Benign essential hypertension - Primary Relevant Orders Comprehensive Metabolic Panel Type 2 diabetes mellitus with hyperglycemia, without long-term current use of insulin Relevant Orders Comprehensive Metabolic Panel Hemoglobin A1C Hypercholesterolemia Relevant Orders Comprehensive Metabolic Panel Hypertriglyceridemia Relevant Orders Comprehensive Metabolic Panel Other Visit Diagnoses Left thigh pain Relevant Orders Lower extremity venous duplex left XR femur left 2+ views HTN addressed as follow: MONITOR BP GOAL BP LOWER THAN 130/80 LOW SALT EXERCISE DAILY BP at home very good log reviewed Diabetes Mellitus/IFG addressed as follow: 1800 [place] ADA HGA1C GOAL LESS THAN 7 LOSE WT EXERCISE DAILY Labs reviewed with pt Tylenol otc prn Fu 6 mo bw Fu 1 week xr doppler documented in this encounter [facility] Work Phone: 09-27-2024 History of Present illness Narrative Subjective Patient ID: Hattie Valderrama is a 79 y.o. male who presents for Hospital Follow-up (PT HERE HOSPITAL DISCHARGE FOR FLU A AND PNEUMONIA). Here for fu after dc from hospital for flu and pneumonia, DC ON 09/22 FEELS A LOT BETTER NOW Review of Systems Constitutional: Negative. Negative for chills and fever. HENT: Negative. Negative for congestion. Eyes: Negative. Negative for discharge. Respiratory: Negative. Negative for cough, shortness of breath and wheezing. Cardiovascular: Negative. Negative for chest pain, palpitations and leg swelling. Gastrointestinal: Negative. Negative for abdominal distention, abdominal pain, constipation, diarrhea, nausea and vomiting. Endocrine: Negative. Genitourinary: Negative. Negative for dysuria and urgency. Musculoskeletal: Negative. Negative for back pain, joint swelling and neck stiffness. Skin: Negative. Negative for rash. Allergic/Immunologic: Negative. Negative for immunocompromised state. Neurological: Negative. Negative for light-headedness, numbness and headaches. Hematological: Negative. Negative for adenopathy. Psychiatric/Behavioral: Negative. Negative for agitation, behavioral problems and confusion. All other systems reviewed and are negative. Objective Physical Exam Vitals reviewed. Constitutional: General: He is not in acute distress. Appearance: Normal appearance. HENT: Head: Normocephalic and atraumatic. Nose: Nose normal. Eyes: Conjunctiva/sclera: Conjunctivae normal. Pupils: Pupils are equal, round, and reactive to light. Neck: Vascular: No carotid bruit. Cardiovascular: Rate and Rhythm: Normal rate and regular rhythm. Pulses: Normal pulses. Heart sounds: No gallop. Pulmonary: Effort: Pulmonary effort is normal. No respiratory distress. Breath sounds: Normal breath sounds. No wheezing. Abdominal: General: Bowel sounds are normal. Palpations: Abdomen is soft. Tenderness: There is no abdominal tenderness. Musculoskeletal: General: Normal range of motion. Cervical back: Normal range of motion. No rigidity. Lymphadenopathy: Cervical: No cervical adenopathy. Skin: General: Skin is warm. Findings: No rash. Neurological: General: No focal deficit present. Mental Status: He is alert and oriented to person, place, and time. Psychiatric: Mood and Affect: Mood normal. Behavior: Behavior normal. BP 136/85 (BP Location: Left arm, Patient Position: Sitting) Pulse 102 Ht 1.829 m (6') Wt 99.8 kg (220 lb) BMI 29.84 kg/m Hemoglobin A1C Date/Time Value Ref Range Status 07/04/2024 09:27 AM 6.8 (H) See comment % Final Assessment/Plan Problem List Items Addressed This Visit Benign essential hypertension Relevant Medications metoprolol succinate XL (Toprol-XL) 100 mg 24 hr tablet Other Relevant Orders CBC and Auto Differential Comprehensive Metabolic Panel Type 2 diabetes mellitus with hyperglycemia, without long-term current use of insulin Relevant Orders CBC and Auto Differential Comprehensive Metabolic Panel Other Visit Diagnoses Pneumonia of left lower lobe due to infectious organism - Primary Relevant Orders CBC and Auto Differential Comprehensive Metabolic Panel Abnormal CT scan of lung Relevant Orders Urine Protein Electrophoresis Serum Protein Electrophoresis CBC and Auto Differential Comprehensive Metabolic Panel CT chest w IV contrast Labs reviewed with pt CLINICALLY IMPROVED Ct DW PT FU 2 WEEKS documented in this encounter [facility] Work Phone: 09-22-2024 Consult note [facility] 09-22-2024 Discharge summary Note Date/Time September 22, 2024 1:12pm [facility] Medical Records Department [address] [place] [address] Discharge Summary 09/22/24 1245 MR#: [id number] Acct: [id number] Name: HATTIE VALDERRAMA Rep #:[id number] : 1945 79 From: Marcelino Gracia DO PCP: Dr. Neymar Xavier MD Status: ADM IN [facility] Prov[facility] Date of Admission: 09/20/24 Primary Care Physician: Dr. 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 EMERGENT Consult: No MD Notified: Yes Date Notified: 09/21/24 Time Notified: 06:17 Method of Notification: Text Reason For Visit: SEPSIS 2/2 INFLUENZA A, PNA AND AE COPD Diagnosis Discharge Diagnosis (1) Sepsis: Status: Acute Code(s): A41.9 - Sepsis, unspecified organism Qualifiers: Sepsis acute organ dysfunction status: with acute organ dysfunction Sepsis type: sepsis due to unspecified organism Severe sepsis acute organ dysfunction type: encephalopathy Severe sepsis shock status: without septic shock Qualified Code(s): A41.9 - Sepsis, unspecified organism; R65.20 - Severe sepsis without septic shock; G93.41 - Metabolic encephalopathy Plan: POA. Review H+P for criteria 2/2 pneumonia/influenza. No pressors needed. CCM following. Recommending follow up chest imaging in 6-8 weeks. (2) Influenza A: Status: Acute Code(s): J10.1 - Influenza due to other identified influenza virus with other respiratorymanifestations Plan: Started on oseltamivir 30 BID. (3) Acute hypoxic respiratory failure: Status: Acute Code(s): J96.01 - Acute respiratory failure with hypoxia Plan: 2/2 influenza and pneumonia and COPD exacerbation Treat the influenza and pneumonia on methylpred, BDs wean Airvo as able. check home oxygen evalulation. (4) Pneumonia: Status: Acute Code(s): J18.9 - Pneumonia, unspecified organism Plan: Predominantly LLL Suspect pneumococcal. Possibly 2/2 influenza Continue pip/tazo for now. Start CTX and azithromycin 09/22 Strep and legionella antigens negative. SCx ordered. 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 Follow up with oncology as outpt. May eventually need biopsy. This can be deferred to outpt. Plan Elevated PSA: unclear significance at this time. Follow up with as oupt. No change in inpatient mgmt. DM2: metformin held and glimeperide. On SSI. Afib: anticoagulated with warfarin. resume metoprolol. HTN: continue losartan VTE prophylaxis: not indicated as already anticoagulated. Medications at Discharge Home Medications atorvastatin 40 mg tablet 40 mg PO QHS CHOLESTEROL 05/20/22 glimepiride 2 mg tablet 2 mg PO DAILY DIABETES 05/20/22 losartan 50 mg tablet 100 mg PO DAILY BLOOD PRESSURE 05/20/22 metformin 500 mg tablet 1,000 mg PO BID DIABETES 05/20/22 metoprolol succinate 100 mg tablet,extended release 24 hr 100 mg PO DAILY BLOOD PRESSURE AND HEART RATE 05/20/22 warfarin 2 mg tablet 4 mg PO SUTUTHSA 05/20/22 warfarin 2 mg tablet 6 mg PO QMWF 05/20/22 guaifenesin 1,200 mg tablet, extended release 12 hr (Mucus Relief ER) 1,200 mg PO BID #10 tabs 09/22/24 levofloxacin 750 mg tablet 750 mg PO DAILY #4 tabs 09/22/24 oseltamivir 30 mg capsule 30 mg PO BID #6 caps 09/22/24 prednisone 20 mg tablet 40 mg (2 x 20 mg) PO DAILY #10 tabs 09/22/24 Hospital Course Operations None Procedures None Summary of Care Provided Minutes Spent on Discharge: 32 Hospital Course: Patient presents with shortness of breath and was found to have a left lower lobe pneumonia as well as influenza. Patient was treated for bacterial pneumonia as well as influenza A. Patient will be discharged continue his course of Tamiflu as well as antibiotics with levofloxacin. Patient had a chestCT that showed a lytic lesion within the right scapula. Etiology which was unclear. He did subsequently undergo CT of the chest abdomen pelvis that showedno masses anywhere. Patient was seen in consultation by pulmonology recommends outpatient CT to see about resolution of his pneumonia. And with that CT they can further evaluate his scapular lesion if that something significant that would warrant further evaluation such as a biopsy or not. Weight / BMI Weight Weight: 98.9 kg Body Mass Index (BMI) 29.5 ABG / Lab / Microbiology Data 09/22/24 05:53 09/22/24 05:53 Laboratory: Laboratory Results - last 24 hr 09/21/24 12:46: POC Glucose 253 H 09/21/24 16:46: POC Glucose 218 H 09/21/24 21:55: POC Glucose 226 H 09/22/24 05:53: WBC 14.4 H, RBC 3.78 L, Hgb 11.7 L, Hct 35.1 L, MCV 92.9, MCH 31.0, MCHC 33.3, RDW Std Deviation 48.7 H, RDW Coeff of Risa 14.4, Plt Count 250,MPV 11.0, Immature Gran % (Auto) 0.600, Neut % (Auto) 87.0 H, Lymph % (Auto) 7.4L, [place] % (Auto) 4.9, Eos % (Auto) 0.0, Baso % (Auto) 0.1, Absolute Neuts (auto)12.5 H, Absolute Lymphs (auto) 1.06, Nucleated RBC % 0, PT 25.7 H, INR 2.3, Sodium 140, Potassium 4.0, Chloride 105, Carbon Dioxide 23.6, Anion Gap 11, BUN 25 H, Creatinine 0.79, Estim Creat Clear Calc 92.70, Est GFR (MDRD) Non-Af 91, BUN/Creatinine Ratio 31.4 H, Glucose 234 H, Calcium 8.8, Phosphorus 2.1 L 09/22/24 06:36: POC Glucose 204 H 09/22/24 11:12: POC Glucose 260 H Microbiology: Microbiology 09/20/24 18:20 Mucosa - Nose SARS-CoV-2, Influenza & RSV (PCR) - Final Influenzae A 09/20/24 19:03 Urine, Clean Catch Legionella Antigen - Final 09/20/24 19:03 Urine, Clean Catch Streptococcus pneumoniae Antigen (M - Final D/C Instructions Discharge Diet: No restrictions DC O2, CPAP, BIPAP Needs PSN CPAP & BiPAP: BiPAP & CPAP Settings per PSN Mode AIRVO 09/21/24 07:05 Bipap Delivery Device Nasal Pillows 09/21/24 07:05 Fraction of Inspired Oxygen ( 29 09/21/24 08:00 FIO2) Total Flow Rate 50 09/21/24 07:05 Home O2 Discharge instructions: No Meaningful Use Info Meaningful Use Meaningful Use Diagnoses (Choose all that apply): None applicable Ischemic Stroke Statin Dosing Therapy Reference: STATIN DOSE THERAPY REFERENCE: * Patients > 75 years receive moderate or high dose statin therapy. * Patients 75 years or YOUNGER should receive HIGH intensity statin dose unless contraindicated. You will be required to document reason for non-treatment if statin daily dose does not meet guidelines. HIGH DOSE STATIN THERAPY DAILY Atorvastatin > than or = to 40 mg Rosuvastatin > than or = to 20 mg Amlodipine + Atorvastatin > than or = to 2.5/40 mg Ezetimibe + Simvastatin 10/80 mg Simvastatin 80mg Discharge Plan Admission Admit Date/Time: 09/20/24 20:11 Primary Reason for Your Visit: Pneumonia Attending Provider: Marcelino Gracia Primary Care Provider: Neymar Xavier Consulting Providers: Zeferino Estrada Instructions Additional Instructions / Restrictions: He had pneumonia as well as influenza. He will be on antibiotics with Levaquin and treatment for the influenza with Tamiflu. Because of the amount of pneumonia that you had to recommend that you get a follow-up CAT scan in about 6to 8 weeks to see about resolution. It was noted on 1 your CAT scans but not both, that you may have something on your right scapula (shoulder blade). Unclear what that is but and if it has anything significant but when you get theCAT scan they can further look at it at that time to see if you require further evaluation. Discharge Orders/Prescriptions Prescriptions: New guaifenesin [Mucus Relief ER] 1,200 mg Tablet Extended Release 12hr 1,200 mg PO BID Qty: 10 0RF oseltamivir 30 mg Capsule 30 mg PO BID Qty: 6 0RF levofloxacin 750 mg tablet 750 mg PO DAILY Qty: 4 0RF prednisone 20 mg tablet 40 mg PO DAILY Qty: 10 0RF Continued losartan 50 mg tablet 100 mg PO DAILY atorvastatin 40 mg tablet 40 mg PO QHS Patient Comments: TAKE 1 TABLET BY MOUTH AT BEDTIME metformin 500 mg tablet 1,000 mg PO BID metoprolol succinate 100 mg tablet extended release 24 hr 100 mg PO DAILY glimepiride 2 mg tablet 2 mg PO DAILY warfarin 2 mg Tablet 6 mg PO QMWF warfarin 2 mg Tablet 4 mg PO SUTUTHSA Referrals / Follow Up: Neymar Xavier MD [Primary Care Provider] - Within 2 Weeks Care Physician,No Primary [Non-Staff] - Disposition Disposition (needs filled in before D/C Order can be placed): Home, Self Care Charges/Coding Visit Charges Inpatient E&M: 06413 Disch Hosp >30min 09/22/24 1312 <Electronically signed by Marcelino Gracia DO> Cosigner Signature (if applicable): CC: Dr. Marcelino Gracia DO; Dr. Neymar Xavier MD~ Signed [facility] Work Phone: [phone]) 164-265803-27-2025 Progress note Author Marcelino Gracia [facility] Note Date/Time September 22, 2024 12: 45pm [facility] Medical Records Department [address] [place] [address] Progress Note - Hospitalist 09/22/24705 MR#: [id number] Acct: [id number] Name: HATTIE VALDERRAMA Rep #:[id number] : 1945 79 From: Marcelino Gracia DO PCP: Dr. Neymar Xavier MD Status: ADM IN [facility] Reason for Visit Reason for Visit: Diagnoses Sepsis, unspecified organism (09/20/24) Overweight (09/20/24) Dehydration (09/20/24) Metabolic encephalopathy (09/20/24) Unspecified atrial fibrillation (09/20/24) Influenza due to other identified influenza virus with other respiratory manifestations (09/20/24) Pneumonia, unspecified organism (09/20/24) Chronic obstructive pulmonary disease with (acute) exacerbation (09/20/24) Acute respiratory failure with hypoxia (09/20/24) Other specified disorders of bone, unspecified site (09/20/24) Severe sepsis without septic shock (09/20/24) Subjective Subjective Feels well. Had walked earlier and had not shortness of breath. Objective Data Objective Data Vital Signs: Vital Signs Temp Pulse Resp BP Pulse Ox O2 Del Method O2 Flow Rate 36.6 C 70 20 H 140/77 H 92 Room Air 3 09/22/24 05:00 09/22/24 05:00 09/22/24 05:00 09/22/24 05:00 09/22/24 05:00 09/22/24 05:00 09/21/24 09:05 FiO2 29 09/21/24 08:00 Oxygen Flow Rate (L/min) 3 Oxygen Delivery Method Room Air Weight: 98.9 kg Body Mass Index (BMI) 29.5 Intake & Output: Intake and Output for Last 24 Hours 09/20/24 09/21/24 09/22/24 23:59 23:59 23:59 Intake Total 1415 / 1415 2203.54 / 2203.54 Output Total 375 / 375 575 / 575 Balance 1040 / 1040 1628.54 / 1628.54 Lab / Micro Data 09/22/24 05:53 09/22/24 05:53 Labs: Laboratory Results - last 24 hr 09/21/24 07:42: POC Glucose 220 H 09/21/24 12:46: POC Glucose 253 H 09/21/24 16:46: POC Glucose 218 H 09/21/24 21:55: POC Glucose 226 H 09/22/24 05:53: WBC 14.4 H, RBC 3.78 L, Hgb 11.7 L, Hct 35.1 L, MCV 92.9, MCH 31.0, MCHC 33.3, RDW Std Deviation 48.7 H, RDW Coeff of Risa 14.4, Plt Count 250,MPV 11.0, Immature Gran % (Auto) 0.600, Neut % (Auto) 87.0 H, Lymph % (Auto) 7.4L, [place] % (Auto) 4.9, Eos % (Auto) 0.0, Baso % (Auto) 0.1, Absolute Neuts (auto)12.5 H, Absolute Lymphs (auto) 1.06, Nucleated RBC % 0, Sodium 140, Potassium 4.0, Chloride 105, Carbon Dioxide 23.6, Anion Gap 11, BUN 25 H, Creatinine 0.79,Estim Creat Clear Calc 92.70, Est GFR (MDRD) Non-Af 91, BUN/Creatinine Ratio 31.4 H, Glucose 234 H, Calcium 8.8, Phosphorus 2.1 L Micro: Microbiology 09/20/24 18:20 Mucosa - Nose SARS-CoV-2, Influenza & RSV (PCR) - Final Influenzae A 09/20/24 19:03 Urine, Clean Catch Legionella Antigen - Final 09/20/24 19:03 Urine, Clean Catch Streptococcus pneumoniae Antigen (M - Final Radiography Diagnostic Testing: Radiology Impression Chest/Abdomen/Pelvis CT 09/21/24 04:42 IMPRESSION: Chest: Left lower lobe consolidative and ground-glass opacities, compatible with pneumonia. A few enlarged hilar likely reactive lymph nodes. Abdomen and pelvis: No acute findings in the abdomen and pelvis. 4 mm right inferior pole calculus, without hydronephrosis. Colonic diverticulosis without diverticulitis. [facility] Physical Exam Const alert and no apparent distress HEENT head/scalp atraumatic and moist oral mucous membranes Resp normal respiratory effort, no retractions, no use of accessory muscles and clearto auscultation bilaterally Cardio regular rate, regular rhythm, S1 normal heart sound and S2 normal heart sound GI normal to inspection, nondistended, normoactive bowel sounds, soft to palpation,non-tender and non-distended Neuro Sensorium / Orientation: awake Assessment & Plan Assessment/Plan (1) Sepsis: QUALIFIERS: Sepsis acute organ dysfunction status: with acute organ dysfunction Sepsis type: sepsis due to unspecified organism Severe sepsis acute organ dysfunction type: encephalopathy Severe sepsis shock status:without septic shock Qualified Code(s): A41.9 - Sepsis, unspecified organism; R65.20 - Severe sepsis without septic shock; G93.41 - Metabolic encephalopathy PLAN: POA. Review H+P for criteria 2/2 pneumonia/influenza. No pressors needed. CCM following. Recommending follow up chest imaging in 6-8 weeks. (2) Influenza A: PLAN: Started on oseltamivir 30 BID. (3) Acute hypoxic respiratory failure: PLAN: 2/2 influenza and pneumonia and COPD exacerbation Treat the influenza and pneumonia on methylpred, BDs wean Airvo as able. check home oxygen evalulation. (4) Pneumonia: PLAN: Predominantly LLL Suspect pneumococcal. Possibly 2/2 influenza Continue pip/tazo for now. Start CTX and azithromycin 09/22 Strep and legionella antigens negative. SCx ordered. 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 Follow up with oncology as outpt. May eventually need biopsy. This can be deferred to outpt. PLAN: Plan Elevated PSA: unclear significance at this time. Follow up with as oupt. No change in inpatient mgmt. DM2: metformin held and glimeperide. On SSI. Afib: anticoagulated with warfarin. resume metoprolol. HTN: continue losartan VTE prophylaxis: not indicated as already anticoagulated. 09/22/24 1245 <Electronically signed by Marcelino Gracia DO> Cosigner Signature (if applicable): CC: ~ Signed [facility] Work Phone: [phone]) [phone] Discharge summary [facility] Medical Records Department [address] [place] [address] Discharge Summary 09/22/24 1245 MR#: [id number] Acct: [id number] Name: HATTIE VALDERRAMA Rep #:[id number] : 1945 79 From: Marcelino Gracia DO PCP: Dr. Neymar Xavier MD Status: ADM IN Location: [place] [address] Providers Date of Admission: 09/20/24 Primary Care Physician: Dr. 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 EMERGENT Consult: No MD Notified: Yes Date Notified: 09/21/24 Time Notified: 06:17 Method of Notification: Text Reason For Visit: SEPSIS 2/2 INFLUENZA A, PNA AND AE COPD Diagnosis Discharge Diagnosis (1) Sepsis: Status: Acute Code(s): A41.9 - Sepsis, unspecified organism Qualifiers: Sepsis acute organ dysfunction status: with acute organ dysfunction Sepsis type: sepsis due to unspecified organism Severe sepsis acute organ dysfunction type: encephalopathy Severe sepsis shock status: without septic shock Qualified Code(s): A41.9 - Sepsis, unspecified organism; R65.20 - Severe sepsis without septic shock; G93.41 - Metabolic encephalopathy Plan: POA. Review H+P for criteria 2/2 pneumonia/influenza. No pressors needed. CCM following. Recommending follow up chest imaging in 6-8 weeks. (2) Influenza A: Status: Acute Code(s): J10.1 - Influenza due to other identified influenza virus with other respiratorymanifestations Plan: Started on oseltamivir 30 BID. (3) Acute hypoxic respiratory failure: Status: Acute Code(s): J96.01 - Acute respiratory failure with hypoxia Plan: 2/2 influenza and pneumonia and COPD exacerbation Treat the influenza and pneumonia on methylpred, BDs wean Airvo as able. check home oxygen evalulation. (4) Pneumonia: Status: Acute Code(s): J18.9 - Pneumonia, unspecified organism Plan: Predominantly LLL Suspect pneumococcal. Possibly 2/2 influenza Continue pip/tazo for now. Start CTX and azithromycin 09/22 Strep and legionella antigens negative. SCx ordered. 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 Follow up with oncology as outpt. May eventually need biopsy. This can be deferred to outpt. Plan Elevated PSA: unclear significance at this time. Follow up with as oupt. No change in inpatient mgmt. DM2: metformin held and glimeperide. On SSI. Afib: anticoagulated with warfarin. resume metoprolol. HTN: continue losartan VTE prophylaxis: not indicated as already anticoagulated. Medications at Discharge Home Medications atorvastatin 40 mg tablet 40 mg PO QHS CHOLESTEROL 05/20/22 glimepiride 2 mg tablet 2 mg PO DAILY DIABETES 05/20/22 losartan 50 mg tablet 100 mg PO DAILY BLOOD PRESSURE 05/20/22 metformin 500 mg tablet 1,000 mg PO BID DIABETES 05/20/22 metoprolol succinate 100 mg tablet,extended release 24 hr 100 mg PO DAILY BLOOD PRESSURE AND HEART RATE 05/20/22 warfarin 2 mg tablet 4 mg PO SUTUTHSA 05/20/22 warfarin 2 mg tablet 6 mg PO QMWF 05/20/22 guaifenesin 1,200 mg tablet, extended release 12 hr (Mucus Relief ER) 1,200 mg PO BID #10 tabs 09/22/24 levofloxacin 750 mg tablet 750 mg PO DAILY #4 tabs 09/22/24 oseltamivir 30 mg capsule 30 mg PO BID #6 caps 09/22/24 prednisone 20 mg tablet 40 mg (2 x 20 mg) PO DAILY #10 tabs 09/22/24 Hospital Course Operations None Procedures None Summary of Care Provided Minutes Spent on Discharge: 32 Hospital Course: Patient presents with shortness of breath and was found to have a left lower lobe pneumonia as wellas influenza. Patient was treated for bacterial pneumonia as well as influenza A. Patient will be discharged continue his course of Tamiflu as well as antibiotics with levofloxacin. Patient had a chestCT that showed a lytic lesion within the right scapula. Etiology which was unclear. He did subsequently undergo CT of the chest abdomen pelvis that showedno masses anywhere. Patient was seen in consultation by pulmonology recommends outpatient CT to see about resolution of his pneumonia. And with that CT they can further evaluate his scapular lesion if that something significant that would warrant further evaluation such as a biopsy or not. Weight / BMI Weight Weight: 98.9 kg Body Mass Index (BMI) 29.5 ABG / Lab / Microbiology Data 09/22/24 05:53 09/22/24 05:53 Laboratory: Laboratory Results - last 24 hr 09/21/24 12:46: POC Glucose 253 H 09/21/24 16:46: POC Glucose 218 H 09/21/24 21:55: POC Glucose 226 H 09/22/24 05:53: WBC 14.4 H, RBC 3.78 L, Hgb 11.7 L, Hct 35.1 L, MCV 92.9, MCH 31.0, MCHC 33.3, RDW Std Deviation 48.7 H, RDW Coeff of Risa 14.4, Plt Count 250,MPV 11.0, Immature Gran % (Auto) 0.600, Neut % (Auto) 87.0 H, Lymph % (Auto) 7.4L, [place] % (Auto) 4.9, Eos % (Auto) 0.0, Baso % (Auto) 0.1, Absolute Neuts (auto)12.5 H, Absolute Lymphs (auto) 1.06, Nucleated RBC % 0, PT 25.7 H, INR 2.3, Sodium 140, Potassium 4.0, Chloride 105, Carbon Dioxide 23.6, Anion Gap 11, BUN 25 H, Creatinine 0.79, Estim Creat Clear Calc 92.70, Est GFR (MDRD) Non-Af 91, BUN/Creatinine Ratio 31.4 H, Glucose 234 H, Calcium 8.8, Phosphorus 2.1 L 09/22/24 06:36: POC Glucose 204 H 09/22/24 11:12: POC Glucose 260 H Microbiology: Microbiology 09/20/24 18:20 Mucosa - Nose SARS-CoV-2, Influenza & RSV (PCR) - Final Influenzae A 09/20/24 19:03 Urine, Clean Catch Legionella Antigen - Final 09/20/24 19:03 Urine, Clean Catch Streptococcus pneumoniae Antigen (M - Final D/C Instructions Discharge Diet: No restrictions DC O2, CPAP, BIPAP Needs PSN CPAP & BiPAP: BiPAP & CPAP Settings per PSN Mode AIRVO 09/21/24 07:05 Bipap Delivery Device Nasal Pillows 09/21/24 07:05 Fraction of Inspired Oxygen ( 29 09/21/24 08:00 FIO2) Total Flow Rate 50 09/21/24 07:05 Home O2 Discharge instructions: No Meaningful Use Info Meaningful Use Meaningful Use Diagnoses (Choose all that apply): None applicable Ischemic Stroke Statin Dosing Therapy Reference: STATIN DOSE THERAPY REFERENCE: * Patients > 75 years receive moderate or high dose statin therapy. * Patients 75 years or YOUNGER should receive HIGH intensity statin dose unless contraindicated. You will be required to document reason for non-treatment if statin daily dose does not meet guidelines. HIGH DOSE STATIN THERAPY DAILY Atorvastatin > than or = to 40 mg Rosuvastatin > than or = to 20 mg Amlodipine + Atorvastatin > than or = to 2.5/40 mg Ezetimibe + Simvastatin 10/80 mg Simvastatin 80mg Discharge Plan Admission Admit Date/Time: 09/20/24 20:11 Primary Reason for Your Visit: Pneumonia Attending Provider: Marcelino Gracia Primary Care Provider: Neymar Xavier Consulting Providers: Zeferino Estrada Instructions Additional Instructions / Restrictions: He had pneumonia as well as influenza. He will be on antibiotics with Levaquin and treatment for the influenza with Tamiflu. Because of the amount of pneumonia that you had to recommend that you get a follow-up CAT scan in about 6to 8 weeks to see about resolution. It was noted on 1 your CAT scans but not both, that you may have something on your right scapula (shoulder blade). Unclear what that is but and if it has anything significant but when you get theCAT scan they can further look at it at that time to see if you require further evaluation. Discharge Orders/Prescriptions Prescriptions: New guaifenesin [Mucus Relief ER] 1,200 mg Tablet Extended Release 12hr 1,200 mg PO BID Qty: 10 0RF oseltamivir 30 mg Capsule 30 mg PO BID Qty: 6 0RF levofloxacin 750 mg tablet 750 mg PO DAILY Qty: 4 0RF prednisone 20 mg tablet 40 mg PO DAILY Qty: 10 0RF Continued losartan 50 mg tablet 100 mg PO DAILY atorvastatin 40 mg tablet 40 mg PO QHS Patient Comments: TAKE 1 TABLET BY MOUTH AT BEDTIME metformin 500 mg tablet 1,000 mg PO BID metoprolol succinate 100 mg tablet extended release 24 hr 100 mg PO DAILY glimepiride 2 mg tablet 2 mg PO DAILY warfarin 2 mg Tablet 6 mg PO QMWF warfarin 2 mg Tablet 4 mg PO [facility] Referrals / Follow Up: Neymar Xavier MD [Primary Care Provider] - Within 2 Weeks Care Physician,No Primary [Non-Staff] - Disposition Disposition (needs filled in before D/C Order can be placed): Home, Self Care Charges/Coding Visit Charges Inpatient E&M: 38620 Disch Hosp >30min 09/22/24 1312 Cosigner Signature (if applicable): CC: Dr. Marcelino Gracia DO; Dr. Neymar Xavier MD~ Signed [facility]03-27-2025 [facility] Medical Records Department [address] [place] [address] Discharge Summary 09/22/24 1245 MR#: [id number] Acct: [id number] Name: HATTIE VALDERRAMA Rep #: [id number] : 1945 79 From: Marcelino Gracia DO PCP: Dr. Neymar Xavier MD Status:ADM IN [id number] Providers Date of Admission: 09/20/24 Primary Care Physician: Dr. 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 EMERGENT Consult: No MD Notified: Yes Date Notified: 09/21/24 Time Notified: 06:17 Method of Notification: Text Reason For Visit: SEPSIS 2/2 INFLUENZA A, PNA AND AE COPD Diagnosis Discharge Diagnosis (1) Sepsis: Status: Acute Code(s): A41.9 - Sepsis, unspecified organism Qualifiers: Sepsis acute organ dysfunction status: with acute organ dysfunction Sepsis type: sepsis due to unspecified organism Severe sepsis acute organ dysfunction type: encephalopathy Severe sepsis shock status: without septic shock Qualified Code(s): A41.9 - Sepsis, unspecified organism; R65.20 - Severe sepsis without septic shock; G93.41 - Metabolic encephalopathy Plan: POA. Review H+P for criteria 2/2 pneumonia/influenza. No pressors needed. CCM following. Recommending follow up chest imaging in 6-8 weeks. (2) Influenza A: Status: Acute Code(s): J10.1 - Influenza due to other identified influenza virus with other respiratory manifestations Plan: Started on oseltamivir 30 BID. (3) Acute hypoxic respiratory failure: Status: Acute Code(s): J96.01 - Acute respiratory failure with hypoxia Plan: 2/2 influenza and pneumonia and COPD exacerbation Treat the influenza and pneumonia on methylpred, BDs wean Airvo as able. check home oxygen evalulation. (4) Pneumonia: Status: Acute Code(s): J18.9 - Pneumonia, unspecified organism Plan: Predominantly LLL Suspect pneumococcal. Possibly 2/2 influenza Continue pip/tazo for now. Start CTX and azithromycin 09/22 Strep and legionella antigens negative. SCx ordered. 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 Follow up with oncology as outpt. May eventually need biopsy. This can be deferred to outpt. Plan Elevated PSA: unclear significance at this time. Follow up with as oupt. No change in inpatient mgmt. DM2: metformin held and glimeperide. On SSI. Afib: anticoagulated with warfarin. resume metoprolol. HTN: continue losartan VTE prophylaxis: not indicated as already anticoagulated. Medications at Discharge Home Medications atorvastatin 40 mg tablet 40 mg PO QHS CHOLESTEROL 05/20/22 glimepiride 2 mg tablet 2 mg PO DAILY DIABETES 05/20/22 losartan 50 mg tablet 100 mg PO DAILY BLOOD PRESSURE 05/20/22 metformin 500 mg tablet 1,000 mg PO BID DIABETES 05/20/22 metoprolol succinate 100 mg tablet,extended release 24 hr 100 mg PO DAILY BLOOD PRESSURE AND HEART RATE 05/20/22 warfarin 2 mg tablet 4 mg PO SUTUTHSA 05/20/22 warfarin 2 mg tablet 6 mg PO QMWF 05/20/22 guaifenesin 1,200 mg tablet, extended release 12 hr (Mucus Relief ER) 1,200 mg PO BID #10 tabs 09/22/24 levofloxacin 750 mg tablet 750 mg PO DAILY #4 tabs 09/22/24 oseltamivir 30 mg capsule 30 mg PO BID #6 caps 09/22/24 prednisone 20 mg tablet 40 mg (2 x 20 mg) PO DAILY #10 tabs 09/22/24 Hospital Course Operations None Procedures None Summary of Care Provided Minutes Spent on Discharge: 32 Hospital Course: Patient presents with shortness of breath and was found to have a left lower lobe pneumonia as well as influenza. Patient was treated for bacterial pneumonia as well as influenza A. Patient will be discharged continue his course of Tamiflu as well as antibiotics with levofloxacin. Patient had a chest CT that showed a lytic lesion within the right scapula. Etiology which was unclear. He did subsequently undergo CT of the chest abdomen pelvis that showed no masses anywhere. Patient was seen in consultation by pulmonology recommends outpatient CT to see about resolution of his pneumonia. And with that CT they can further evaluate his scapular lesion if that something significant that would warrant further evaluation such as a biopsy or not. Weight / BMI Weight Weight: 98.9 kg Body Mass Index (BMI) 29.5 ABG / Lab / Microbiology Data 09/22/24 05:53 09/22/24 05:53 Laboratory: Laboratory Results - last 24 hr 09/21/24 12:46: POC Glucose 253 H 09/21/24 16:46: POC Glucose 218 H 09/21/24 21:55: POC Glucose 226 H 09/22/24 05:53: WBC 14.4 H, RBC 3.78 L, Hgb 11.7 (more content not included)... [facility]03-27-2025 Progress note [facility] Medical Records Department [address] [place] [address] Progress Note - Hospitalist 09/22/24705 MR#: [id number] Acct: [id number] Name: HATTIE VALDERRAMA Rep #:[id number] : 1945 79 From: Marcelino Gracia DO PCP: Dr. Neymar Xavier MD Status: ADM IN Location: [place] [address] Reason for Visit Reason for Visit: Diagnoses Sepsis, unspecified organism (09/20/24) Overweight (09/20/24) Dehydration (09/20/24) Metabolic encephalopathy (09/20/24) Unspecified atrial fibrillation (09/20/24) Influenza due to other identified influenza virus with other respiratory manifestations (09/20/24) Pneumonia, unspecified organism (09/20/24) Chronic obstructive pulmonary disease with (acute) exacerbation (09/20/24) Acute respiratory failure with hypoxia (09/20/24) Other specified disorders of bone, unspecified site (09/20/24) Severe sepsis without septic shock (09/20/24) Subjective Subjective Feels well. Had walked earlier and had not shortness of breath. Objective Data Objective Data Vital Signs: Vital Signs Temp Pulse Resp BP Pulse Ox O2 Del Method O2 Flow Rate 36.6 C 70 20 H 140/77 H 92 Room Air 3 09/22/24 05:00 09/22/24 05:00 09/22/24 05:00 09/22/24 05:00 09/22/24 05:00 09/22/24 05:00 09/21/24 09:05 FiO2 29 09/21/24 08:00 Oxygen Flow Rate (L/min) 3 Oxygen Delivery Method Room Air Weight: 98.9 kg Body Mass Index (BMI) 29.5 Intake & Output: Intake and Output for Last 24 Hours 09/20/24 09/21/24 09/22/24 23:59 23:59 23:59 Intake Total 1415 / 1415 2203.54 / 2203.54 Output Total 375 / 375 575 / 575 Balance 1040 / 1040 1628.54 / 1628.54 Lab / Micro Data 09/22/24 05:53 09/22/24 05:53 Labs: Laboratory Results - last 24 hr 09/21/24 07:42: POC Glucose 220 H 09/21/24 12:46: POC Glucose 253 H 09/21/24 16:46: POC Glucose 218 H 09/21/24 21:55: POC Glucose 226 H 09/22/24 05:53: WBC 14.4 H, RBC 3.78 L, Hgb 11.7 L, Hct 35.1 L, MCV 92.9, MCH 31.0, MCHC 33.3, RDW Std Deviation 48.7 H, RDW Coeff of Risa 14.4, Plt Count 250,MPV 11.0, Immature Gran % (Auto) 0.600, Neut % (Auto) 87.0 H, Lymph % (Auto) 7.4L, [place] % (Auto) 4.9, Eos % (Auto) 0.0, Baso % (Auto) 0.1, Absolute Neuts (auto)12.5 H, Absolute Lymphs (auto) 1.06, Nucleated RBC % 0, Sodium 140, Potassium 4.0, Chloride 105, Carbon Dioxide 23.6, Anion Gap 11, BUN 25 H, Creatinine 0.79,Estim Creat Clear Calc 92.70, Est GFR (MDRD) Non-Af 91, BUN/Creatinine Ratio 31.4 H, Glucose 234 H, Calcium 8.8, Phosphorus2.1 L Micro: Microbiology 09/20/24 18:20 Mucosa - Nose SARS-CoV-2, Influenza & RSV (PCR) - Final Influenzae A 09/20/24 19:03 Urine, Clean Catch Legionella Antigen - Final 09/20/24 19:03 Urine, Clean Catch Streptococcus pneumoniae Antigen (M - Final Radiography Diagnostic Testing: Radiology Impression Chest/Abdomen/Pelvis CT 09/21/24 04:42 IMPRESSION: Chest: Left lower lobe consolidative and ground-glass opacities, compatible with pneumonia. A few enlarged hilar likely reactive lymph nodes. Abdomen and pelvis: No acute findings in the abdomen and pelvis. 4 mm right inferior pole calculus, without hydronephrosis. Colonic diverticulosis without diverticulitis. [facility] Ex[facility] Const alert and no apparent distress HEENT head/scalp atraumatic and moist oral mucous membranes Resp normal respiratory effort, no retractions, no use of accessory muscles and clearto auscultation bilaterally Cardio regular rate, regular rhythm, S1 normal heart sound and S2 normal heart sound GI normal to inspection, nondistended, normoactive bowel sounds, soft to palpation,non-tender and non-distended Neuro Sensorium / Orientation: awake Assessment & Plan Assessment/Plan (1) Sepsis: QUALIFIERS: Sepsis acute organ dysfunction status: with acute organ dysfunction Sepsis type: sepsisdue to unspecified organism Severe sepsis acute organ dysfunction type: encephalopathy Severe sepsis shock status:without septic shock Qualified Code(s): A41.9 - Sepsis, unspecified organism; R65.20 - Severe sepsis without septic shock; G93.41 - Metabolic encephalopathy PLAN: POA. Review H+P for criteria 2/2 pneumonia/influenza. No pressors needed. CCM following. Recommending follow up chest imaging in 6-8 weeks. (2) Influenza A: PLAN: Started on oseltamivir 30 BID. (3) Acute hypoxic respiratory failure: PLAN: 2/2 influenza and pneumonia and COPD exacerbation Treat the influenza and pneumonia on methylpred, BDs wean Airvo as able. check home oxygen evalulation. (4) Pneumonia: PLAN: Predominantly LLL Suspect pneumococcal. Possibly 2/2 influenza Continue pip/tazo for now. Start CTX and azithromycin 09/22 Strep and legionella antigens negative. SCx ordered. 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 Follow up with oncology as outpt. May eventually need biopsy. This can be deferred to outpt. PLAN: Plan Elevated PSA: unclear significance at this time. Follow up with as oupt. No change in inpatient mgmt. DM2: metformin held and glimeperide. On SSI. Afib: anticoagulated with warfarin. resume metoprolol. HTN: continue losartan VTE prophylaxis: not indicated as already anticoagulated. 09/22/24 1245 Cosigner Signature (if applicable): CC: ~ Signed [facility]03-26-2025 Progress note Author Marcelino Gracia [facility] Note Date/Time September 21, 2024 1:1 2pm [facility] Medical Records Department [address] [place] [address] Progress Note - Hospitalist 09/21/24 0746 MR#: [id number] Acct: [id number] Name: HATTIE VALDERRAMA Rep #:[id number] : 1945 79 From: Marcelino Gracia DO PCP: Dr. Neymar Xavier MD Status: ADM IN Location: ICU ICU02-1 Reason for Visit Reason for Visit: Diagnoses Sepsis, unspecified organism (09/20/24) Overweight (09/20/24) Dehydration (09/20/24) Metabolic encephalopathy (09/20/24) Unspecified atrial fibrillation (09/20/24) Influenza due to other identified influenza virus with other respiratory manifestations (09/20/24) Pneumonia, unspecified organism (09/20/24) Chronic obstructive pulmonary disease with (acute) exacerbation (09/20/24) Acute respiratory failure with hypoxia (09/20/24) Severe sepsis without septic shock (09/20/24) Subjective Subjective Feeling well. Easiliy weaned down to nasal canula. Objective Data Objective Data Vital Signs: Vital Signs Temp Pulse Resp BP Pulse Ox O2 Del Method O2 Flow Rate 36.6 C 104 H 24 H 127/66 H 91 Airvo 50 09/21/24 06:00 09/21/24 07:00 09/21/24 07:00 09/21/24 07:00 09/21/24 07:00 09/21/24 07:00 09/21/24 07:00 FiO2 29 09/21/24 07:00 Oxygen Flow Rate (L/min) 50 Oxygen Delivery Method Airvo Weight: 98.9 kg Body Mass Index (BMI) 29.5 Intake & Output: Intake and Output for Last 24 Hours 09/19/24 09/20/24 09/21/24 23:59 23:59 23:59 Intake Total 1415 / 1415 50 / 50 Output Total 375 / 375 575 / 575 Balance 1040 / 1040 -525 / -525 Lab / Micro Data 09/21/24 04:23 09/21/24 04:23 Labs: Laboratory Results - last 24 hr 09/20/24 17:53: WBC 13.8 H, RBC 4.10 L, Hgb 13.0, Hct 38.4 L, MCV 93.7, MCH 31.7, MCHC 33.9, RDW Std Deviation 49.1 H, RDW Coeff of Risa 14.4, Plt Count 209,MPV 11.4, Immature Gran % (Auto) 0.700, Neut % (Auto) 84.1 H, Lymph % (Auto) 4.8L, [place] % (Auto) 9.6, Eos % (Auto) 0.4, Baso % (Auto) 0.4, Absolute Neuts (auto)11.7 H, Absolute Lymphs (auto) 0.66 L, Nucleated RBC % 0, Platelet Estimate A, PT 30.1 H, INR 2.8, APTT 52.3 H, Sodium 133, Potassium 4.7, Chloride 98, Carbon Dioxide 21.5, Anion Gap 14, BUN 41 H, Creatinine 1.19, Estim Creat Clear Calc 62.48, Est GFR (MDRD) Non-Af 63, BUN/Creatinine Ratio 34.2 H, Glucose 248 H, Hemoglobin A1c 6.9, Calcium 9.7, Total Bilirubin 0.79, AST 36, ALT 23, Alkaline Phosphatase 62, Troponin T High Sens 14, Total Protein 7.7, Albumin 4.0, Globulin 3.8, Albumin/Globulin Ratio 1.1 09/20/24 17:54: Lactic Acid 1.1 09/20/24 19:03: Urine Color Yellow, Urine Clarity Clear, Urine pH 6.0, Ur Specific [place] 1.020, Urine Protein 100 H, Urine Glucose (UA) 250 H, Urine Ketones Negative, Urine Occult Blood 150 H, Urine Nitrite Negative, Urine Bilirubin Negative, Urine Urobilinogen Normal, Ur Leukocyte Esterase Negative, Urine RBC 0-5 SEEN, Urine WBC 0-5 SEEN, Ur Squamous Epith Cells 0 SEEN, Urine Bacteria 1+, Urine Mucus 0 SEEN, Urine Opiates Screen NEGATIVE, U Buprenorphine Qual NEGATIVE, Ur Oxycodone Screen NEGATIVE, Urine Methadone Screen NEGATIVE, Urine Fentanyl Screen NEGATIVE, Ur Barbiturates Screen NEGATIVE, Ur Phencyclidine Scrn NEGATIVE, Ur Amphetamines Screen NEGATIVE, U Benzodiazepines Scrn NEGATIVE, Urine Cocaine Screen NEGATIVE, U Cannabinoids Screen NEGATIVE 09/20/24 20:35: Magnesium 1.7, Troponin T Hi Sens 2 Hr 12 09/20/24 21:43: Lactic Acid 2.4 H*, NT pro BNP II 644, Vitamin B12 340, Serum Folate 17.60, TSH 0.328, Ethyl Alcohol < 10.1 09/20/24 22:24: POC Glucose 238 H 09/21/24 04:23: WBC 12.7 H, RBC 3.54 L, Hgb 11.1 L, Hct 32.6 L, MCV 92.1, MCH 31.4, MCHC 34.0, RDW Std Deviation 48.7 H, RDW Coeff of Risa 14.2, Plt Count 215,MPV 10.6, Immature Gran % (Auto) 0.300, Neut % (Auto) 89.8 H, Lymph % (Auto) 5.4L, [place] % (Auto) 4.3, Eos % (Auto) 0.0, Baso % (Auto) 0.2, Absolute Neuts (auto)11.4 H, Absolute Lymphs (auto) 0.69 L, Nucleated RBC % 0, Differential Comment SCANNED, PT 27.1 H, INR 2.5, Sodium 137, Potassium 4.1, Chloride 104, Carbon Dioxide 21.5, Anion Gap 12, BUN 25 H, Creatinine 0.86, Estim Creat Clear Calc 86.23, Est GFR (MDRD) Non-Af 89, BUN/Creatinine Ratio 28.5 H, Glucose 260 H, Calcium 7.1 L, Phosphorus 2.0 L, Total Bilirubin 0.59, AST 24, ALT 17, Alkaline Phosphatase 54, Total Protein 6.7, Albumin 3.6, Globulin 3.2, Albumin/Globulin Ratio 1.1, Triglycerides 102, Cholesterol 83, LDL Cholesterol, Calc 25, VLDL Cholesterol 20, HDL Cholesterol 38 L, Cholesterol/HDL Ratio 2.18, PSA Screen 4.91 H 09/21/24 05:42: Lactic Acid 1.6 Micro: Microbiology 09/20/24 19:03 Urine, Clean Catch Legionella Antigen - Final 09/20/24 19:03 Urine, Clean Catch Streptococcus pneumoniae Antigen (M - Final 09/20/24 18:20 Mucosa - Nose SARS-CoV-2, Influenza & RSV (PCR) - Final Influenzae A ABG Data ABG results: ABG 09/20/24 09/20/24 19:03 21:31 Specimen Type OSCAR ART Sample Site Not entered L Radial pH 7.41 Bicarbonate Actual 20.5 L Total CO2 22 Base Excess -4 L O2 Saturation 95 O2 % 29.0 ABG pCO2 32.4 L ABG pO2 74 L Kristen Test Positive VBG pH 7.39 VBG pO2 33 VBG HCO3 25 VBG Total CO2 26 VBG O2 Sat (Calc) 62 VBG Base Excess -1 POC Mix VBG pCO2 Pt Tmp 40.8 L O2 Delivery Device Room Air HFOV Vent Mode Not entered Radiography Diagnostic Testing: Radiology Impression Chest X-Ray 09/20/24 18:45 IMPRESSION: Bilateral pulmonary infiltrates particularly within the right hilar region. Short-term follow-up is recommended if this persists, CT chest should be performed to rule out underlying mass. No pneumothorax. Reading Location: [facility] Chest CT 09/20/24 19:45 IMPRESSION: Limited examination due to lack of IV contrast. Evaluation of hilar mass is limited. Large left lower lobe infiltrates highly worrisome for infectious process. Minor infiltrates seen within the right lower lobe which may also suggest infectious process. No definite right hilar mass is present. Lytic lesion within the right scapula may suggest metastatic disease versus myeloma. Nonobstructing right renal calculi. Short-term follow-up study with IV contrast is suggested. Other findings as above. Reading Location: [facility] Chest/Abdomen/Pelvis CT 09/21/24 04:42 IMPRESSION: Chest: Left lower lobe consolidative and ground-glass opacities, compatible with pneumonia. A few enlarged hilar likely reactive lymph nodes. Abdomen and pelvis: No acute findings in the abdomen and pelvis. 4 mm right inferior pole calculus, without hydronephrosis. Colonic diverticulosis without diverticulitis. [facility] Physical Exam Const alert and no apparent distress Resp normal respiratory effort and no retractions Resp Narrative: bibasilar crackles. Cardio regular rate, regular rhythm, S1 normal heart sound and S2 normal heart sound GI normal to inspection, nondistended, normoactive bowel sounds, soft to palpation,non-tender and non-distended Extremity normal to inspection and full ROM Neuro Sensorium / Orientation: awake and alert Assessment & Plan Assessment/Plan (1) Sepsis: QUALIFIERS: Sepsis acute organ dysfunction status: with acute organ dysfunction Sepsis type: sepsis due to unspecified organism Severe sepsis acute organ dysfunction type: encephalopathy Severe sepsis shock status:without septic shock Qualified Code(s): A41.9 - Sepsis, unspecified organism; R65.20 - Severe sepsis without septic shock; G93.41 - Metabolic encephalopathy PLAN: POA. Review H+P for criteria 2/2 pneumonia/influenza. No pressors needed. CCM following. Recommending follow up chest imaging in 6-8 weeks. (2) Influenza A: PLAN: Started on oseltamivir 30 BID. (3) Acute hypoxic respiratory failure: PLAN: 2/2 influenza and pneumonia and COPD exacerbation Treat the influenza and pneumonia on methylpred, BDs wean Airvo as able. (4) Pneumonia: PLAN: Predominantly LLL Suspect pneumococcal. Possibly 2/2 influenza Continue pip/tazo for now. Start CTX and azithromycin 09/22 Strep and legionella antigens negative. SCx ordered. (5) Lytic bone lesions on xray: PLAN: Noted on CT (not xray) on Right scapula Unclear etiology. Follow up with oncology as outpt. May eventually need biopsy. This can be deferred to outpt. PLAN: Plan Elevated PSA: unclear significance at this time. Follow up with as oupt. No change in inpatient mgmt. DM2: metformin held and glimeperide. On SSI. Afib: anticoagulated with warfarin. resume metoprolol. HTN: continue losartan VTE prophylaxis: not indicated as already anticoagulated. Transfer to [facility] 1-2 more days in the hospital. Charges/Coding Visit Charges Inpatient E&M: 73077 Subs Hosp L2 09/21/24 1312 <Electronically signed by Marcelino Gracia DO> Cosigner Signature (if applicable): CC: ~ Signed [facility] Work Phone: 1(459) 981-886703-26-2025 Progress note [facility] Medical Records Department [address] [place] [address] Progress Note - Hospitalist 09/21/24 0746 MR#: [id number] Acct: [id number] Name: HATTIE VALDERRAMA Misty Rep #:[id number] : 1945 79 From: Marcelino Gracia DO PCP: Dr. Neymar Xavier MD Status: ADM IN Location: ICU ICU02-1 Reason for Visit Reason for Visit: Diagnoses Sepsis, unspecified organism (09/20/24) Overweight (09/20/24) Dehydration (09/20/24) Metabolic encephalopathy (09/20/24) Unspecified atrial fibrillation (09/20/24) Influenza due to other identified influenza virus with other respiratory manifestations (09/20/24) Pneumonia, unspecified organism (09/20/24) Chronic obstructive pulmonary disease with (acute) exacerbation (09/20/24) Acute respiratory failure with hypoxia (09/20/24) Severe sepsis without septic shock (09/20/24) Subjective Subjective Feeling well. Easiliy weaned down to nasal canula. Objective Data Objective Data Vital Signs: Vital Signs Temp Pulse Resp BP Pulse Ox O2 Del Method O2 Flow Rate 36.6 C 104 H 24 H 127/66 H 91 Airvo 50 09/21/24 06:00 09/21/24 07:00 09/21/24 07:00 09/21/24 07:00 09/21/24 07:00 09/21/24 07:00 09/21/24 07:00 FiO2 29 09/21/24 07:00 Oxygen Flow Rate (L/min) 50 Oxygen Delivery Method Airvo Weight: 98.9 kg Body Mass Index (BMI) 29.5 Intake & Output: Intake and Output for Last 24 Hours 09/19/24 09/20/24 09/21/24 23:59 23:59 23:59 Intake Total 1415 / 1415 50 / 50 Output Total 375 / 375 575 / 575 Balance 1040 / 1040 -525 / -525 Lab / Micro Data 09/21/24 04:23 09/21/24 04:23 Labs: Laboratory Results - last 24 hr 09/20/24 17:53: WBC 13.8 H, RBC 4.10 L, Hgb 13.0, Hct 38.4 L, MCV 93.7, MCH 31.7, MCHC 33.9, RDW Std Deviation 49.1 H, RDW Coeff of Risa 14.4, Plt Count 209,MPV 11.4, Immature Gran % (Auto) 0.700, Neut % (Auto) 84.1 H, Lymph % (Auto) 4.8L, [place] % (Auto) 9.6, Eos % (Auto) 0.4, Baso % (Auto) 0.4, Absolute Neuts (auto)11.7 H, Absolute Lymphs (auto) 0.66 L, Nucleated RBC % 0, Platelet Estimate A, PT 30.1 H, INR 2.8, APTT 52.3 H, Sodium 133, Potassium 4.7, Chloride 98, Carbon Dioxide 21.5, Anion Gap 14, BUN 41 H, Creatinine 1.19, Estim Creat Clear Calc 62.48, Est GFR (MDRD) Non-Af 63, BUN/Creatinine Ratio 34.2 H, Glucose 248 H, Hemoglobin A1c 6.9, Calcium 9.7, Total Bilirubin 0.79, AST 36, ALT 23, Alkaline Phosphatase 62, Troponin T High Sens 14, Total Protein 7.7, Albumin 4.0, Globulin 3.8, Albumin/Globulin Ratio 1.1 09/20/24 17:54: Lactic Acid 1.1 09/20/24 19:03: Urine Color Yellow, Urine Clarity Clear, Urine pH 6.0, Ur Specific [place] 1.020, Urine Protein 100 H, Urine Glucose (UA) 250 H, Urine Ketones Negative, Urine Occult Blood 150 H, Urine Nitrite Negative, Urine Bilirubin Negative, Urine Urobilinogen Normal, Ur Leukocyte Esterase Negative, Urine RBC 0-5 SEEN, Urine WBC 0-5 SEEN, Ur Squamous Epith Cells 0 SEEN, Urine Bacteria 1+, Urine Mucus 0 SEEN, Urine Opiates Screen NEGATIVE, U Buprenorphine Qual NEGATIVE, Ur Oxycodone Screen NEGATIVE, Urine Methadone Screen NEGATIVE, Urine Fentanyl Screen NEGATIVE, Ur Barbiturates Screen NEGATIVE, Ur Phencyclidine Scrn NEGATIVE, Ur Amphetamines Screen NEGATIVE, U Benzodiazepines Scrn NEGATIVE, Urine Cocaine Screen NEGATIVE, U Cannabinoids Screen NEGATIVE 09/20/24 20:35: Magnesium 1.7, Troponin T Hi Sens 2 Hr 12 09/20/24 21:43: Lactic Acid 2.4 H*, NT pro BNP II 644, Vitamin B12 340, Serum Folate 17.60, TSH 0.328, Ethyl Alcohol < 10.1 09/20/24 22:24: POC Glucose 238 H 09/21/24 04:23: WBC 12.7 H, RBC 3.54 L, Hgb 11.1 L, Hct 32.6 L, MCV 92.1, MCH 31.4, MCHC 34.0, RDW Std Deviation 48.7 H, RDW Coeff of Risa 14.2, Plt Count 215,MPV 10.6, Immature Gran % (Auto) 0.300, Neut % (Auto) 89.8 H, Lymph % (Auto) 5.4L, [place] % (Auto) 4.3, Eos % (Auto) 0.0, Baso % (Auto) 0.2, Absolute Neuts (auto)11.4 H, Absolute Lymphs (auto) 0.69 L, Nucleated RBC % 0, Differential Comment SCANNED, PT 27.1 H, INR 2.5, Sodium 137, Potassium 4.1, Chloride 104, Carbon Dioxide 21.5, Anion Gap 12, BUN 25 H, Creatinine 0.86, Estim Creat Clear Calc 86.23, Est GFR (MDRD) Non-Af 89, BUN/CreatinineRatio 28.5 H, Glucose 260 H, Calcium 7.1 L, Phosphorus 2.0 L, Total Bilirubin 0.59, AST 24, ALT 17,Alkaline Phosphatase 54, Total Protein 6.7, Albumin 3.6, Globulin 3.2, Albumin/Globulin Ratio 1.1, Triglycerides 102, Cholesterol 83, LDL Cholesterol, Calc 25, VLDL Cholesterol 20, HDL Cholesterol 38L, Cholesterol/HDL Ratio 2.18, PSA Screen 4.91 H 09/21/24 05:42: Lactic Acid 1.6 Micro: Microbiology 09/20/24 19:03 Urine, Clean Catch Legionella Antigen - Final 09/20/24 19:03 Urine, Clean Catch Streptococcus pneumoniae Antigen (M - Final 09/20/24 18:20 Mucosa - Nose SARS-CoV-2, Influenza & RSV (PCR) - Final Influenzae A ABG Data ABG results: ABG 09/20/24 09/20/24 19:03 21:31 Specimen Type OSCAR ART Sample Site Not entered L Radial pH 7.41 Bicarbonate Actual 20.5 L Total CO2 22 Base Excess -4 L O2 Saturation 95 O2 % 29.0 ABG pCO2 32.4 L ABG pO2 74 L Kristen Test Positive VBG pH 7.39 VBG pO2 33 VBG HCO3 25 VBG Total CO2 26 VBG O2 Sat (Calc) 62 VBG Base Excess -1 POC Mix VBG pCO2 Pt Tmp 40.8 L O2 Delivery Device Room Air HFOV Vent Mode Not entered Radiography Diagnostic Testing: Radiology Impression Chest X-Ray 09/20/24 18:45 IMPRESSION: Bilateral pulmonary infiltrates particularly within the right hilar region. Short-term follow-up isrecommended if this persists, CT chest should be performed to rule out underlying mass. No pneumothorax. Reading Location: [id number] Chest CT 09/20/24 19:45 IMPRESSION: Limited examination due to lack of IV contrast. Evaluation of hilar mass is limited. Large left lower lobe infiltrates highly worrisome for infectious process. Minor infiltrates seen within the right lower lobe which may also suggest infectious process. No definite right hilar mass is present. Lytic lesion within the right scapula may suggest metastatic disease versus myeloma. Nonobstructing right renal calculi. Short-term follow-up study with IV contrast is suggested. Other findings as above. Reading Location: [id number] Chest/Abdomen/Pelvis CT 09/21/24 04:42 IMPRESSION: Chest: Left lower lobe consolidative and ground-glass opacities, compatible with pneumonia. A few enlarged hilar likely reactive lymph nodes. Abdomen and pelvis: No acute findings in the abdomen and pelvis. 4 mm right inferior pole calculus, without hydronephrosis. Colonic diverticulosis without diverticulitis. Reading Location: [facility] Physical Exam Const alert and no apparent distress Resp normal respiratory effort and no retractions Resp Narrative: bibasilar crackles. Cardio regular rate, regular rhythm, S1 normal heart sound and S2 normal heart sound GI normal to inspection, nondistended, normoactive bowel sounds, soft to palpation,non-tender and non-distended Extremity normal to inspection and full ROM Neuro Sensorium / Orientation: awake and alert Assessment & Plan Assessment/Plan (1) Sepsis: QUALIFIERS: Sepsis acute organ dysfunction status: with acute organ dysfunction Sepsis type: sepsisdue to unspecified organism Severe sepsis acute organ dysfunction type: encephalopathy Severe sepsis shock status:without septic shock Qualified Code(s): A41.9 - Sepsis, unspecified organism; R65.20 - Severe sepsis without septic shock; G93.41 - Metabolic encephalopathy PLAN: POA. Review H+P for criteria 2/2 pneumonia/influenza. No pressors needed. CCM following. Recommending follow up chest imaging in 6-8 weeks. (2) Influenza A: PLAN: Started on oseltamivir 30 BID. (3) Acute hypoxic respiratory failure: PLAN: 2/2 influenza and pneumonia and COPD exacerbation Treat the influenza and pneumonia on methylpred, BDs wean Airvo as able. (4) Pneumonia: PLAN: Predominantly LLL Suspect pneumococcal. Possibly 2/2 influenza Continue pip/tazo for now. Start CTX and azithromycin 09/22 Strep and legionella antigens negative. SCx ordered. (5) Lytic bone lesions on xray: PLAN: Noted on CT (not xray) on Right scapula Unclear etiology. Follow up with oncology as outpt. May eventually need biopsy. This can be deferred to outpt. PLAN: Plan Elevated PSA: unclear significance at this time. Follow up with as oupt. No change in inpatient mgmt. DM2: metformin held and glimeperide. On SSI. Afib: anticoagulated with warfarin. resume metoprolol. HTN: continue losartan VTE prophylaxis: not indicated as already anticoagulated. Transfer to [facility]. Hopefuly 1-2 more days in the hospital. 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 Neymar Xavier MD Status: ADM IN Location: ICU ICU02-1 Assessment & Plan Assessment/Plan (1) Acute hypoxic respiratory failure: PLAN: Plan RECOMMENDATIONS: 1. Continue to wean supplemental oxygen to maintain saturations at or above 90%. 2. Continue Tamiflu along with empiric antimicrobials. 3. Continue corticosteroids as ordered. 4. Continue Coumadin per home regimen. 5. Encourage incentive spirometer use and mobilize patient as tolerated. 6. Recommend follow-up chest imaging in 6 to 8 weeks to document resolution of pneumonia. IMPRESSIONS: 1. Acute hypoxemic respiratory failure Appears secondary to underlying influenza A coupled with probable superimposed bacterial pneumonia. The patient has been initiated on appropriate medical therapy, including Tamiflu, antimicrobials and corticosteroids. He will be continued on supplemental oxygen to maintain saturations at or above 90%. Ultimately, I would recommend that follow-up imaging of the chest be completed in 6 to 8 weeks to document resolution of the patient's presenting consolidativeopacity and ground glass changes. Encourage incentive spirometer use and mobilize patient as tolerated. 2. History of atrial fibrillation/hypertension/hyperlipidemia/diabetes mellitus Complicates care, management, recovery and prognosis. Continue home medicationsas indicated. Physical therapy to work with the patient. CODE STATUS: Full code (discussed with the patient this morning) This note was generated with [employer] dictation software. It may contain incorrectwords, spelling, and punctuation that were not noted in checking the note beforesigning. HPI Consult Data Date of Consult: 09/21/24 HPI Narrative Reason for Consultation: Acute hypoxemic respiratory failure HPI Narrative: The patient is a 79-year-old male, with a history as outlined below, who presented to the emergency department on September 20 with generalized malaise, cough and shortness of breath of approximately 3 days duration. The patient's has also been ill with similar symptoms. The patient is a lifelong non-smoker. He has never been diagnosed with COPD or asthma. He does have a known history of atrial fibrillation on Coumadin along with diabetes mellitus. On presentation to the emergency department, the patient was documented to have a low-grade fever and was tachycardic and tachypneic. The patient, however, wasotherwise hemodynamically stable and was initially saturating 92% on room air. Laboratory evaluation was notable for a white blood cell count of 14,000. INR was therapeutic at 2.8. Arterial blood gas demonstrated a pH of 7.4 with a pCO2of 32 and pO2 of 74. Chemistry profile revealed a normal creatinine with a lactate of 2.4. Urine analysis was unremarkable. Toxicology screen was negative. Influenza A PCR was positive. Blood and urine cultures were collected. CT imaging of the chest demonstrated a left lower lobe consolidationwith scattered groundglass opacities. The patient was ultimately placed on heated high flow oxygen and initiated on Tamiflu, antimicrobials and IV steroids. The patient was admitted to the medical intensive care unit for further management. This morning, the patient is alert and appropriately interactive. He has remained hemodynamically stable and has been weaned to nasal cannula oxygen at 3L/min via nasal cannula. [facility] Medical History Kidney stones Diabetes Atrial fibrillation Hypertension Home Medications ?Medication ?Instructions ?Recorded ?Last Taken ?Type atorvastatin 40 mg tablet 40 mg PO QHS CHOLESTEROL Unknown History glimepiride 2 mg tablet 2 mg PO DAILY DIABETES 05/20 Unknown History losartan 50 mg tablet 100 mg PO DAILY BLOOD PRESSU RE 05/20/22 Unknown History metformin 500 mg tablet 1,000 mg PO BID DIABETES Unknown History metoprolol succinate 100 mg 100 mg PO DAILY BLOOD PRES SURE AND 05/20/22 Unknown History tablet,extended release 24 hr HEART RATE warfarin 2 mg tablet 4 mg PO SUTUTHSA 05/20/22 Un known History warfarin 2 mg tablet 6 mg PO QMWF 05/20/22 Unknow n History Allergy/AdvReac Type Severity Reaction Status Date / Time No Known Allergies Allergy Verified 09/20/24 17:36 Surgical History History of hip replacement History of knee replacement Social History Smoking Status: Former smoker ROS ROS Narrative 10 systems were reviewed with pertinent positives as noted in the HPI above. Physical Exam Const alert and no apparent distress Constitutional Narrative: Resting comfortably in bed. Appropriately conversant. General Appearance: cooperative HEENT normocephalic, head/scalp atraumatic and moist oral mucous membranes Eyes EOMs intact bilaterally, conjunctivae normal and no scleral icterus Neck supple General: trachea midline Chest inspection of chest normal Resp no use of accessory muscles Effort and Inspection: able to speak in complete sentences and tachypneic Auscultation: wheezes Cardio Rate: tachycardic Rhythm: abnormal rhythm GI normal to inspection, nondistended, normoactive bowel sounds Extremity no clubbing, cyanosis or edema Skin no rashes or lesions noted Neuro CN's II-XII intact bilaterally, moves all extremities and no focal motor deficits Psych cooperative and affect normal Lab / Micro Data 09/21/24 04:23 09/21/24 04:23 Labs: Laboratory Results - last 24 hr 09/20/24 17:53: WBC 13.8 H, RBC 4.10 L, Hgb 13.0, Hct 38.4 L, MCV 93.7, MCH 31.7, MCHC 33.9, RDW Std Deviation 49.1 H, RDW Coeff of Risa 14.4, Plt Count 209,MPV 11.4, Immature Gran % (Auto) 0.700, Neut % (Auto) 84.1 H, Lymph % (Auto) 4.8L, [place] % (Auto) 9.6, Eos % (Auto) 0.4, Baso % (Auto) 0.4, Absolute Neuts (auto)11.7 H, Absolute Lymphs (auto) 0.66 L, Nucleated RBC % 0, Platelet Estimate A, PT 30.1 H, INR 2.8, APTT 52.3 H, Sodium 133, Potassium 4.7, Chloride 98, Carbon Dioxide 21.5, Anion Gap 14, BUN 41 H, Creatinine 1.19, Estim Creat Clear Calc 62.48, Est GFR (MDRD) Non-Af 63, BUN/Creatinine Ratio 34.2 H, Glucose 248 H, Hemoglobin A1c 6.9, Calcium 9.7, Total Bilirubin 0.79, AST 36, ALT 23, Alkaline Phosphatase 62, Troponin T High Sens 14, Total Protein 7.7, Albumin 4.0, Globulin 3.8, Albumin/Globulin Ratio 1.1 09/20/24 17:54: Lactic Acid 1.1 09/20/24 19:03: Urine Color Yellow, Urine Clarity Clear, Urine pH 6.0, Ur Specific [place] 1.020, Urine Protein 100 H, Urine Glucose (UA) 250 H, Urine Ketones Negative, Urine Occult Blood 150 H, Urine Nitrite Negative, Urine Bilirubin Negative, Urine Urobilinogen Normal, Ur Leukocyte Esterase Negative, Urine RBC 0-5 SEEN, Urine WBC 0-5 SEEN, Ur Squamous Epith Cells 0 SEEN, Urine Bacteria 1+, Urine Mucus 0 SEEN, Urine Opiates Screen NEGATIVE, U Buprenorphine Qual NEGATIVE, Ur Oxycodone Screen NEGATIVE, Urine Methadone Screen NEGATIVE, Urine Fentanyl Screen NEGATIVE, Ur Barbiturates Screen NEGATIVE, Ur Phencyclidine Scrn NEGATIVE, Ur Amphetamines Screen NEGATIVE, U Benzodiazepines Scrn NEGATIVE, Urine Cocaine Screen NEGATIVE, U Cannabinoids Screen NEGATIVE 09/20/24 20:35: Magnesium 1.7, Troponin T Hi Sens 2 Hr 12 09/20/24 21:43: Lactic Acid 2.4 H*, NT pro BNP II 644, Vitamin B12 340, Serum Folate 17.60, TSH 0.328, Ethyl Alcohol < 10.1 09/20/24 22:24: POC Glucose 238 H 09/21/24 04:23: WBC 12.7 H, RBC 3.54 L, Hgb 11.1 L, Hct 32.6 L, MCV 92.1, MCH 31.4, MCHC 34.0, RDW Std Deviation 48.7 H, RDW Coeff of Risa 14.2, Plt Count 215,MPV 10.6, Immature Gran % (Auto) 0.300, Neut % (Auto) 89.8 H, Lymph % (Auto) 5.4L, [place] % (Auto) 4.3, Eos % (Auto) 0.0, Baso % (Auto) 0.2, Absolute Neuts (auto)11.4 H, Absolute Lymphs (auto) 0.69 L, Nucleated RBC % 0, Differential Comment SCANNED, PT 27.1 H, INR 2.5, Sodium 137, Potassium 4.1, Chloride 104, Carbon Dioxide 21.5, Anion Gap 12, BUN 25 H, Creatinine 0.86, Estim Creat Clear Calc 86.23, Est GFR (MDRD) Non-Af 89, BUN/Creatinine Ratio 28.5 H, Glucose 260 H, Calcium 7.1 L, Phosphorus 2.0 L, Total Bilirubin 0.59, AST 24, ALT 17, Alkaline Phosphatase 54, Total Protein 6.7, Albumin 3.6, Globulin 3.2, Albumin/Globulin Ratio 1.1, Triglycerides 102, Cholesterol 83, LDL Cholesterol, Calc 25, VLDL Cholesterol 20, HDL Cholesterol 38 L, Cholesterol/HDL Ratio 2.18, PSA Screen 4.91 H 09/21/24 05:42: Lactic Acid 1.6 Micro: Microbiology 09/20/24 19:03 Urine, Clean Catch Legionella Antigen - Final 09/20/24 19:03 Urine, Clean Catch Streptococcus pneumoniae Antigen (M - Final 09/20/24 18:20 Mucosa - Nose SARS-CoV-2, Influenza & RSV (PCR) - Final Influenzae A ABG Data ABG results: ABG 09/20/24 09/20/24 19:03 21:31 Specimen Type OSCAR ART Sample Site Not entered L Radial pH 7.41 Bicarbonate Actual 20.5 L Total CO2 22 Base Excess -4 L O2 Saturation 95 O2 % 29.0 ABG pCO2 32.4 L ABG pO2 74 L Kristen Test Positive VBG pH 7.39 VBG pO2 33 VBG HCO3 25 VBG Total CO2 26 VBG O2 Sat (Calc) 62 VBG Base Excess -1 POC Mix VBG pCO2 Pt Tmp 40.8 L O2 Delivery Device Room Air HFOV Vent Mode Not entered Imaging Radiology Impression Chest X-Ray 09/20/24 18:45 IMPRESSION: Bilateral pulmonary infiltrates particularly within the right hilar region. Short-term follow-up is recommended if this persists, CT chest should be performed to rule out underlying mass. No pneumothorax. Reading Location: [facility] Chest CT 09/20/24 19:45 IMPRESSION: Limited examination due to lack of IV contrast. Evaluation of hilar mass is limited. Large left lower lobe infiltrates highly worrisome for infectious process. Minor infiltrates seen within the right lower lobe which may also suggest infectious process. No definite right hilar mass is present. Lytic lesion within the right scapula may suggest metastatic disease versus myeloma. Nonobstructing right renal calculi. Short-term follow-up study with IV contrast is suggested. Other findings as above. Reading Location: [facility] Chest/Abdomen/Pelvis CT 09/21/24 04:42 IMPRESSION: Chest: Left lower lobe consolidative and ground-glass opacities, compatible with pneumonia. A few enlarged hilar likely reactive lymph nodes. Abdomen and pelvis: No acute findings in the abdomen and pelvis. 4 mm right inferior pole calculus, without hydronephrosis. Colonic diverticulosis without diverticulitis. Reading Location: [facility] Charges/Coding Visit Charges Inpatient E&M: 49073 Init Hosp L3 09/21/24 0918 <Electronically signed by Garrett Ambrocio DO> Cosigner Signature (if applicable): CC: Dr. Neymar Xavier MD~ Signed [facility] Work Phone: [phone] 392-140203-26-2025 Consult note 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 Neymar Xavier MD Status: ADM IN Location: ICU ICU02-1 Assessment & Plan Assessment/Plan (1) Acute hypoxic respiratory failure: PLAN: Plan RECOMMENDATIONS: 1. Continue to wean supplemental oxygen to maintain saturations at or above 90%. 2. Continue Tamiflu along with empiric antimicrobials. 3. Continue corticosteroids as ordered. 4. Continue Coumadin per home regimen. 5. Encourage incentive spirometer use and mobilize patient as tolerated. 6. Recommend follow-up chest imaging in 6 to 8 weeks to document resolution of pneumonia. IMPRESSIONS: 1. Acute hypoxemic respiratory failure Appears secondary to underlying influenza A coupled with probable superimposed bacterial pneumonia.The patient has been initiated on appropriate medical therapy, including Tamiflu, antimicrobials and corticosteroids. He will be continued on supplemental oxygen to maintain saturations at or above 90%. Ultimately, I would recommend that follow-up imaging of the chest be completed in 6 to 8 weeks to document resolution of the patient's presenting consolidativeopacity and ground glass changes. Encourage incentive spirometer use and mobilize patient as tolerated. 2. History of atrial fibrillation/hypertension/hyperlipidemia/diabetes mellitus Complicates care, management, recovery and prognosis. Continue home medicationsas indicated. Physical therapy to work with the patient. CODE STATUS: Full code (discussed with the patient this morning) This note was generated with [employer] software. It may contain incorrectwords, spelling, and punctuation that were not noted in checking the note beforesigning. HPI Consult Data Date of Consult: 09/21/24 HPI Narrative Reason for Consultation: Acute hypoxemic respiratory failure HPI Narrative: The patient is a 79-year-old male, with a history as outlined below, who presented to the emergencydepartment on September 20 with generalized malaise, cough and shortness of breath of approximately 3 days duration. The patient's has also been ill with similar symptoms. The patient is a lifelong non-smoker. He has never been diagnosed with COPD or asthma. He does have a known history of atrial fibrillation on Coumadin along with diabetes mellitus. On presentation to the emergency department, the patient was documented to have a low-grade fever and was tachycardic and tachypneic. The patient, however, wasotherwise hemodynamically stable and wasinitially saturating 92% on room air. Laboratory evaluation was notable for a white blood cell count of 14,000. INR was therapeutic at 2.8. Arterial blood gas demonstrated a pH of 7.4 with a pCO2of 32 and pO2 of 74. Chemistry profile revealed a normal creatinine with a lactate of 2.4. Urine analysis was unremarkable. Toxicology screen was negative. Influenza A PCR was positive. Blood and urine cultures were collected. CT imaging of the chest demonstrated a left lower lobe consolidationwith scattered groundglass opacities. The patient was ultimately placed on heated high flow oxygen and initiated on Tamiflu, antimicrobials and IV steroids. The patient was admitted to the medical intensive care unit for further management. This morning, the patient is alert and appropriately interactive. He has remained hemodynamically stable and has been weaned to nasal cannula oxygen at 3L/min via nasal cannula. [facility] Medical History Kidney stones Diabetes Atrial fibrillation Hypertension Home Medications ?Medication ?Instructions ?Recorded ?Last Taken ?Type atorvastatin 40 mg tablet 40 mg PO QHS CHOLESTEROL Unknown History glimepiride 2 mg tablet 2 mg PO DAILY DIABETES 05/20 Unknown History losartan 50 mg tablet 100 mg PO DAILY BLOOD PRESSU RE 05/20/22 Unknown History metformin 500 mg tablet 1,000 mg PO BID DIABETES Unknown History metoprolol succinate 100 mg 100 mg PO DAILY BLOOD PRES SURE AND 05/20/22 Unknown History tablet,extended release 24 hr HEART RATE warfarin 2 mg tablet 4 mg PO SUTUTHSA 05/20/22 Un known History warfarin 2 mg tablet 6 mg PO QMWF 05/20/22 Unknow n History Allergy/AdvReac Type Severity Reaction Status Date / Time No Known Allergies Allergy Verified 09/20/24 17:36 Surgical History History of hip replacement History of knee replacement Social History Smoking Status: Former smoker ROS ROS Narrative 10 systems were reviewed with pertinent positives as noted in the HPI above. Physical Exam Const alert and no apparent distress Constitutional Narrative: Resting comfortably in bed. Appropriately conversant. General Appearance: cooperative HEENT normocephalic, head/scalp atraumatic and moist oral mucous membranes Eyes EOMs intact bilaterally, conjunctivae normal and no scleral icterus Neck supple General: trachea midline Chest inspection of chest normal Resp no use of accessory muscles Effort and Inspection: able to speak in complete sentences and tachypneic Auscultation: wheezes Cardio Rate: tachycardic Rhythm: abnormal rhythm GI normal to inspection, nondistended, normoactive bowel sounds Extremity no clubbing, cyanosis or edema Skin no rashes or lesions noted Neuro CN's II-XII intact bilaterally, moves all extremities and no focal motor deficits Psych cooperative and affect normal Lab / Micro Data 09/21/24 04:23 09/21/24 04:23 Labs: Laboratory Results - last 24 hr 09/20/24 17:53: WBC 13.8 H, RBC 4.10 L, Hgb 13.0, Hct 38.4 L, MCV 93.7, MCH 31.7, MCHC 33.9, RDW Std Deviation 49.1 H, RDW Coeff of Risa 14.4, Plt Count 209,MPV 11.4, Immature Gran % (Auto) 0.700, Neut % (Auto) 84.1 H, Lymph % (Auto) 4.8L, [place] % (Auto) 9.6, Eos % (Auto) 0.4, Baso % (Auto) 0.4, Absolute Neuts (auto)11.7 H, Absolute Lymphs (auto) 0.66 L, Nucleated RBC % 0, Platelet Estimate A, PT 30.1 H, INR 2.8, APTT 52.3 H, Sodium 133, Potassium 4.7, Chloride 98, Carbon Dioxide 21.5, Anion Gap 14, BUN 41 H, Creatinine 1.19, Estim Creat Clear Calc 62.48, Est GFR (MDRD) Non-Af 63, BUN/Creatinine Ratio 34.2 H, Glucose 248 H, Hemoglobin A1c 6.9, Calcium 9.7, Total Bilirubin 0.79, AST 36, ALT 23, Alkaline Phosphatase 62, Troponin T High Sens 14, Total Protein 7.7, Albumin 4.0, Globulin 3.8, Albumin/Globulin Ratio 1.1 09/20/24 17:54: Lactic Acid 1.1 09/20/24 19:03: Urine Color Yellow, Urine Clarity Clear, Urine pH 6.0, Ur Specific [place] 1.020, Urine Protein 100 H, Urine Glucose (UA) 250 H, Urine Ketones Negative, Urine Occult Blood 150 H, Urine Nitrite Negative, Urine Bilirubin Negative, Urine Urobilinogen Normal, Ur Leukocyte Esterase Negative, Urine RBC 0-5 SEEN, Urine WBC 0-5 SEEN, Ur Squamous Epith Cells 0 SEEN, Urine Bacteria 1+, Urine Mucus 0 SEEN, Urine Opiates Screen NEGATIVE, U Buprenorphine Qual NEGATIVE, Ur Oxycodone Screen NEGATIVE, Urine Methadone Screen NEGATIVE, Urine Fentanyl Screen NEGATIVE, Ur Barbiturates Screen NEGATIVE, Ur Phencyclidine Scrn NEGATIVE, Ur Amphetamines Screen NEGATIVE, U Benzodiazepines Scrn NEGATIVE, Urine Cocaine Screen NEGATIVE, U Cannabinoids Screen NEGATIVE 09/20/24 20:35: Magnesium 1.7, Troponin T Hi Sens 2 Hr 12 09/20/24 21:43: Lactic Acid 2.4 H*, NT pro BNP II 644, Vitamin B12 340, Serum Folate 17.60, TSH 0.328, Ethyl Alcohol < 10.1 09/20/24 22:24: POC Glucose 238 H 09/21/24 04:23: WBC 12.7 H, RBC 3.54 L, Hgb 11.1 L, Hct 32.6 L, MCV 92.1, MCH 31.4, MCHC 34.0, RDW Std Deviation 48.7 H, RDW Coeff of Risa 14.2, Plt Count 215,MPV 10.6, Immature Gran % (Auto) 0.300, Neut % (Auto) 89.8 H, Lymph % (Auto) 5.4L, [place] % (Auto) 4.3, Eos % (Auto) 0.0, Baso % (Auto) 0.2, Absolute Neuts (auto)11.4 H, Absolute Lymphs (auto) 0.69 L, Nucleated RBC % 0, Differential Comment SCANNED, PT 27.1 H, INR 2.5, Sodium 137, Potassium 4.1, Chloride 104, Carbon Dioxide 21.5, Anion Gap 12, BUN 25 H, Creatinine 0.86, Estim Creat Clear Calc 86.23, Est GFR (MDRD) Non-Af 89, BUN/CreatinineRatio 28.5 H, Glucose 260 H, Calcium 7.1 L, Phosphorus 2.0 L, Total Bilirubin 0.59, AST 24, ALT 17,Alkaline Phosphatase 54, Total Protein 6.7, Albumin 3.6, Globulin 3.2, Albumin/Globulin Ratio 1.1, Triglycerides 102, Cholesterol 83, LDL Cholesterol, Calc 25, VLDL Cholesterol 20, HDL Cholesterol 38L, Cholesterol/HDL Ratio 2.18, PSA Screen 4.91 H 09/21/24 05:42: Lactic Acid 1.6 Micro: Microbiology 09/20/24 19:03 Urine, Clean Catch Legionella Antigen - Final 09/20/24 19:03 Urine, Clean Catch Streptococcus pneumoniae Antigen (M - Final 09/20/24 18:20 Mucosa - Nose SARS-CoV-2, Influenza & RSV (PCR) - Final Influenzae A ABG Data ABG results: ABG 09/20/24 09/20/24 19:03 21:31 Specimen Type OSCAR ART Sample Site Not entered L Radial pH 7.41 Bicarbonate Actual 20.5 L Total CO2 22 Base Excess -4 L O2 Saturation 95 O2 % 29.0 ABG pCO2 32.4 L ABG pO2 74 L Kristen Test Positive VBG pH 7.39 VBG pO2 33 VBG HCO3 25 VBG Total CO2 26 VBG O2 Sat (Calc) 62 VBG Base Excess -1 POC Mix VBG pCO2 Pt Tmp 40.8 L O2 Delivery Device Room Air HFOV Vent Mode Not entered Imaging Radiology Impression Chest X-Ray 09/20/24 18:45 IMPRESSION: Bilateral pulmonary infiltrates particularly within the right hilar region. Short-term follow-up isrecommended if this persists, CT chest should be performed to rule out underlying mass. No pneumothorax. Reading Location: [id number] Chest CT 09/20/24 19:45 IMPRESSION: Limited examination due to lack of IV contrast. Evaluation of hilar mass is limited. Large left lower lobe infiltrates highly worrisome for infectious process. Minor infiltrates seen within the right lower lobe which may also suggest infectious process. No definite right hilar mass is present. Lytic lesion within the right scapula may suggest metastatic disease versus myeloma. Nonobstructing right renal calculi. Short-term follow-up study with IV contrast is suggested. Other findings as above. Reading Location: [id number] Chest/Abdomen/Pelvis CT 09/21/24 04:42 IMPRESSION: Chest: Left lower lobe consolidative and ground-glass opacities, compatible with pneumonia. A few enlarged hilar likely reactive lymph nodes. Abdomen and pelvis: No acute findings in the abdomen and pelvis. 4 mm right inferior pole calculus, without hydronephrosis. Colonic diverticulosis without diverticulitis. Reading Location: [facility] Charges/Coding Visit Charges Inpatient E&M: 62181 Init Hosp L3 09/21/24 0918 Cosigner Signature (if applicable): CC: Dr. Neymar Xavier MD~ Signed [facility]03-26-2025 History and physical note Author Zeferino Dwyer [facility] Note Date/Time September 21, 2024 6:4 5am [facility] Medical Records Department [address] [place] [address] H&P Exam - Hospitalist 09/20/241942 MR#: [id number] Acct: [id number] Name: HATTIE VALDERRAMA Rep #:[id number] : 1945 79 From: Zeferino Azevedo DO PCP: Dr. Neymar Xavier MD Status: ADM IN Location: ICU ICU02-1 [facility] - General General Date of Admission: 09/20/24 Date of Service: 09/20/24 Chief Complaint: SOB, Cough and Body Aches. HPI Narrative HATTIE VALDERRAMA, is a 79 M with a past medical history of essential hypertension; on losartan and metoprolol, history of hyperlipidemia; currently not on treatment, overweight; with BMI of 29.7 this admission, remote history of tobacco abuse (quit 1979), chronic atrial fibrillation; on warfarin, DM-2; of unknown control on metformin and glimepiride, history of renal calculi; most recent (2021 on the Right) and OA; with history of THR and TKR chronic low back pain who presents to [facility] ER complaining of shortness of breath, cough and body aches. Mr. Valderrama is a suboptimal historian at this time so information was gathered from chart, medical staff, computer and his at the bedside. According to the records he began to become ill over the weekend on Thursday, September 20, 2024 with a viral upper respiratory illness that progressively worsened with his then becoming sick with a similar viral upper respiratoryillness later in the weekend. His reported to the ER provider that he had decreased oral intake and malaise with nonproductive cough and increasingly labored respirations. There is no report of fever, chills, nausea, vomiting, diarrhea, constipation, abdominal pain, dysuria, chest pain, rash or headache. In the ER his viral assay returned positive for Influenza A complicated by chestx-ray positive for bilateral pulmonary infiltrates particularly within the Righthilar region consistent with (suspected bacterial) Pneumonia with CT recommendedto rule out underlying mass with a corresponding Leukocytosis of 13.8 K, low-grade Fever of 99.6 ?F and irregularly irregular pulse of ~143 bpm noted shortlyafter admission consistent with suspected Sepsis compounded by Atrial Fibrillation; with Rapid Ventricular Response (with INR of 2.8 present on admission) all combining to cause AE COPD with Acute Hypoxic Respiratory Failure; requiring Airvo with VBG that revealed pH 7.39/ pCO2 26 mmHg/ pO2 33 mmHg/ HCO3 25 mmol/L and 62% on room air with VBG pCO2 C mix pCO2 40.8 mmHg pluslaboratory evidence of Dehydration; with BUN/creatinine ratio of 34.2 present onadmission in addition to clinical evidence of Acute Metabolic Encephalopathy. He was then admitted to the ICU for ongoing care under the sepsis protocol for astay of is expected to extend beyond 2 midnights. [facility] Medical History Kidney stones Diabetes Atrial fibrillation Hypertension Home Medications ?Medication ?Instructions ?Recorded ?Last Taken ?Type atorvastatin 40 mg tablet 40 mg PO QHS CHOLESTEROL Unknown History glimepiride 2 mg tablet 2 mg PO DAILY DIABETES 05/20 Unknown History losartan 50 mg tablet 100 mg PO DAILY BLOOD PRESSU RE 05/20/22 Unknown History metformin 500 mg tablet 1,000 mg PO BID DIABETES Unknown History metoprolol succinate 100 mg 100 mg PO DAILY BLOOD PRES SURE AND 05/20/22 Unknown History tablet,extended release 24 hr HEART RATE warfarin 2 mg tablet 4 mg PO SUTUTHSA 05/20/22 Un known History warfarin 2 mg tablet 6 mg PO QMWF 05/20/22 Unknow n History Allergy/AdvReac Type Severity Reaction Status Date / Time No Known Allergies Allergy Verified 09/20/24 17:36 Surgical History History of hip replacement History of knee replacement Social History Smoking Status: Former smoker ROS ROS Narrative Full review of systems was not possible due to patient's metabolic encephalopathy. Vital Signs Vital Signs Vital Signs: 09/20/24 17:34 09/20/24 17:36 09/20/24 17:57 Temperature 98.3 F 98.3 F Temperature Source Oral Oral Pulse Rate 124 H 124 H 121 H Respiratory Rate 36 H 36 H 36 H Respiratory Effort Respiratory Depth Respiratory Pattern Blood Pressure 140/83 H 140/83 H 139/71 H Blood Pressure Mean 102 102 93 Pulse Ox 92 92 93 Oxygen Delivery Method Room Air Room Air Room Air 09/20/24 17:57 09/20/24 18:18 09/20/24 18:42 Temperature 98.9 F Temperature Source Oral Pulse Rate 138 H Respiratory Rate 24 H Respiratory Effort Short of Breath Labored Respiratory Depth Shallow Respiratory Pattern Tachypnea Blood Pressure 172/81 H Blood Pressure Mean 111 Pulse Ox 93 93 Oxygen Delivery Method Room Air Room Air Room Air 09/20/24 19:00 09/20/24 19:05 09/20/24 19:15 Temperature 99.6 F H Temperature Source Temporal Pulse Rate 143 H 137 H 139 H Respiratory Rate 30 H 34 H 34 H Respiratory Effort Respiratory Depth Respiratory Pattern Blood Pressure 172/61 H 146/87 H Blood Pressure Mean 98 102 Pulse Ox 92 90 Oxygen Delivery Method Room Air 09/20/24 19:30 09/20/24 19:31 Temperature Temperature Source Pulse Rate 133 H 123 H Respiratory Rate 29 H 33 H Respiratory Effort Respiratory Depth Respiratory Pattern Blood Pressure 140/84 H 140/84 H Blood Pressure Mean 99 102 Pulse Ox 96 97 Oxygen Delivery Method Airvo Airvo Weight Weight: 219 lb 4.8 oz Body Mass Index (BMI) 29.7 Physical Exam Const alert Constitutional Narrative: Moderately labored respirations with chronically ill appearance and mild confusion. General Appearance: cooperative Orientation / Consciousness: confused HEENT normocephalic, head/scalp atraumatic, hearing grossly normal bilaterally and moist oral mucous membranes Eyes PERRL, EOMs intact bilaterally and conjunctivae normal Neck no lymphadenopathy, supple and no JVD Resp Resp Narrative: Labored respirations with inspiratory and expiratory wheezing and coarse rhonchithroughout. Auscultation: rhonchi and wheezes Cardio Cardio Narrative: Irregularly irregular at ~130-140 bpm. GI normal to inspection, nondistended, normoactive bowel sounds, soft to palpation,non-tender and non-distended Extremity normal to inspection, full ROM and no clubbing, cyanosis or edema Skin Skin Narrative: Patient has evidence of rash, abscess, wounds or jaundice. Neuro CN's II-XII intact bilaterally, moves all extremities and no focal motor deficits Sensorium / Orientation: awake, alert, oriented to person and oriented to place Speech: speech normal Psych affect normal Results Medical Records Data Attestation: I reviewed the patient's medical records Lab / Micro Data Attestation: I reviewed the patient's lab results. 09/20/24 17:53 09/20/24 17:53 Labs: Laboratory Results - last 24 hr 09/20/24 17:53: WBC 13.8 H, RBC 4.10 L, Hgb 13.0, Hct 38.4 L, MCV 93.7, MCH 31.7, MCHC 33.9, RDW Std Deviation 49.1 H, RDW Coeff of Risa 14.4, Plt Count 209,MPV 11.4, Immature Gran % (Auto) 0.700, Neut % (Auto) 84.1 H, Lymph % (Auto) 4.8L, [place] % (Auto) 9.6, Eos % (Auto) 0.4, Baso % (Auto) 0.4, Absolute Neuts (auto)11.7 H, Absolute Lymphs (auto) 0.66 L, Nucleated RBC % 0, Platelet Estimate A, PT 30.1 H, INR 2.8, APTT 52.3 H, Sodium 133, Potassium 4.7, Chloride 98, Carbon Dioxide 21.5, Anion Gap 14, BUN 41 H, Creatinine 1.19, Estim Creat Clear Calc 62.48, Est GFR (MDRD) Non-Af 63, BUN/Creatinine Ratio 34.2 H, Glucose 248 H, Calcium 9.7, Total Bilirubin 0.79, AST 36, ALT 23, Alkaline Phosphatase 62, Troponin T High Sens 14, Total Protein 7.7, Albumin 4.0, Globulin 3.8, Albumin/Globulin Ratio 1.1 09/20/24 17:54: Lactic Acid 1.1 09/20/24 19:03: Urine Color Yellow, Urine Clarity Clear, Urine pH 6.0, Ur Specific [place] 1.020, Urine Protein 100 H, Urine Glucose (UA) 250 H, Urine Ketones Negative, Urine Occult Blood 150 H, Urine Nitrite Negative, Urine Bilirubin Negative, Urine Urobilinogen Normal, Ur Leukocyte Esterase Negative, Urine RBC 0-5 SEEN, Urine WBC 0-5 SEEN, Ur Squamous Epith Cells 0 SEEN, Urine Bacteria 1+, Urine Mucus 0 SEEN Micro: Microbiology 09/20/24 18:20 Mucosa - Nose SARS-CoV-2, Influenza & RSV (PCR) - Final Influenzae A ABG Data ABG results: ABG 09/20/24 19:03 Specimen Type OSCAR Sample Site Not entered VBG pH 7.39 VBG pO2 33 VBG HCO3 25 VBG Total CO2 26 VBG O2 Sat (Calc) 62 VBG Base Excess -1 POC Mix VBG pCO2 Pt Tmp 40.8 L O2 Delivery Device Room Air Imaging Radiology Impression Chest X-Ray 09/20/24 18:45 IMPRESSION: Bilateral pulmonary infiltrates particularly within the right hilar region. Short-term follow-up is recommended if this persists, CT chest should be performed to rule out underlying mass. No pneumothorax. Reading Location: [facility] Imaging Services [address] [place] [address] Chest without Contrast MR#: [id number] Acct: [id number] Name: HATTIE VALDERRAMA Rep #: [id number] : 1945 M 79 From: Tal Negron MD PCP: Dr. Neymar Xavier MD Status: ADM IN Study: Chest without Contrast Date of Exam: 09/20/24 Exam# [id number] Ordering Dr: Stone Leong DO PROCEDURE: CHEST WITHOUT CONTRAST 09/20/2024 REASON FOR EXAM: ASSESS FOR POSSIBLE MASS TECHNIQUE: Chest CT without contrast. Coronal and Sagittal reconstruction series were provided. One or more dose reduction techniques were used (e.g., Automated exposure control, adjustment of the mA and/or kV according to patient size, use of iterative reconstruction technique RADIATION DOSE SUMMARY: DLP: 777.4 mGycm COMPARISON: Chest x-ray performed on the same date. FINDINGS: Limited examination due to lack of intravenous contrast. The trachea and central bronchial tree are patent. There is no pleural pericardial effusion. The heart is normal in size. There are calcified density within the spleen and the liver which may be suggestive of prior history of granulomatous disease. Correlate clinically. Nonobstructing right intrarenal calculi is present. Hypodense structures seen within the left kidney measuring up to 2.7 cm, incompletely characterized (best seen on image 123/138). Evaluation of lung parenchyma is limited due to respiratory motion abnormalities. Large infiltrates present within the left lower lobe, highly suggestive of pneumonia. Follow-up until clearing is recommended. Minor infiltrates also present within the medial basal segment of the right lower lobe (best seen on image 172/270), whichmay also be infectious in nature. Evaluation for hilar mass is limited due to lack of IV contrast. Calcified lymph nodes within the bilateral hilum, [id number] may suggest history of granulomatous disease. 2.4 cm lytic lesion seen within the right scapula best seen on image 18/138. Differential includes Mets or myeloma. Multilevel degenerative changes present within the thoracic spine. No definite acute fracture or dislocation is seen. Atheromatous calcification is seen within the aorta and its branches. CT/Chest without Contrast IMPRESSION: Limited examination due to lack of IV contrast. Evaluation of hilar mass is limited. Large left lower lobe infiltrates highly worrisome for infectious process. Minor infiltrates seen within the right lower lobe which may also suggest infectious process. No definite right hilar mass is present. Lytic lesion within the right scapula may suggest metastatic disease versus myeloma. Nonobstructing right renal calculi. Short-term follow-up study with IV contrast is suggested. Other findings as above. Reading Location: [id number] CC: Dr. Stone Leong DO; Dr. Neymar Xavier MD ~ Press Operator Meat: Signed Assessment & Plan Assessment/Plan (1) Sepsis: QUALIFIERS: Sepsis acute organ dysfunction status: with acute organ dysfunction Sepsis type: sepsis due to unspecified organism Severe sepsis acute organ dysfunction type: encephalopathy Severe sepsis shock status:without septic shock Qualified Code(s): A41.9 - Sepsis, unspecified organism; R65.20 - Severe sepsis without septic shock; G93.41 - Metabolic encephalopathy (2) Influenza A: (3) Multifocal pneumonia: (4) COPD exacerbation: (5) Acute hypoxic respiratory failure: (6) Atrial fibrillation with RVR: (7) Dehydration: (8) Acute metabolic encephalopathy: (9) Overweight (BMI 25.0-29.9): PLAN: Plan 1. Viral assay returned positive for Influenza A with chest x-ray positive for bilateral pulmonary infiltrates particularly within the Right hilar region consistent with (suspected bacterial) Pneumonia with CT recommended to rule out underlying mass with a corresponding Leukocytosis of 13.8 K, low-grade Fever of 99.6 ?F and irregularly irregular pulse of 143 bpm noted shortly after admissionconsistent with suspected Sepsis - Admit to ICU for treatment under the sepsis protocol. Continue IV azithromycin begun in ER and stop ceftriaxone in favor ofIV piperacillin- tazobactam to cover gram-negative's and anaerobes. CT scan of the chest without contrast is pending at this time to evaluate for possible massgiven patient's former history of tobacco abuse. Check urinary antigens to Streptococcus pneumonia and Legionella. Continue oseltamivir begun in ER per protocol. Give mucolytics as needed. Give acetaminophen as needed pain or fever. 2. AE COPD with Acute Hypoxic Respiratory Failure; requiring Airvo with VBG that revealed pH 7.39/ pCO2 26 mmHg/ pO2 33 mmHg/ HCO3 25 mmol/L and 62% on roomair with VBG pCO2 C mix pCO2 40.8 mmHg attributable to #1 - Check ABG to establish baseline. Continue methylprednisolone 60 mg IV twice daily. Give scheduled and as needed nebulizers. Wean Airvo as tolerated. 3. Atrial Fibrillation; with Rapid Ventricular Response (with INR of 2.8 present on admission) compounding #1 & #2 - Give digoxin IV daily with a goal tokeep heart rate less than 100 bpm. Hold warfarin for one dose and then restart at ~25% of previous to prevent supratherapeutic INR. Check PT/INR daily to follow trend. 4. Dehydration; evidenced by elevated BUN/creatinine ratio of 34.2 present on admission adding to the medical complexity of #1 - #3 - Volume resuscitate and recheck renal indices daily to follow hopeful trend of improvement. Hemoccult stools. 5. Acute Metabolic Encephalopathy due to #1 - #4 - Check TSH, UDS, ANDRIA, B12 andFolate levels to evaluate for potential reversible causes of confusion. Otherwise, we will minimize BL[place] RAKER-active medications in an attempt to allow his sensorium to clear and monitor for improvement. 6. Overweight; with BMI of 29.7 this admission adding to the burden of disease outlined from #1 - #5 - Weight loss will be recommended. Check TSH. 7. Essential Hypertension; on losartan and metoprolol - Hold scheduled antihypertensives until infections outlined in #1 have been neutralized. Give IV hydralazine as needed for systolic blood pressure greater than 160 mmHg. 8. History of hyperlipidemia; currently not on treatment - Check Lipid Profile to confirm status. 9. Remote history of tobacco abuse (quit 1979) - Noted. 10. DM-2; of unknown control on metformin and glimepiride - Hold oral hypoglycemic medications. Give ADA diet plus FSBS before every meal at bedtime and lowest-intensity SSI. Check hemoglobin A1c to objectively evaluate quality of diabetic control. 11. History of renal calculi; most recent (2021 on the Right) - Stable with no evidence of recurrence at this time. 12. OA; with history of THR and TKR chronic low back pain - Give acetaminophen prn pain or fever. 13. DVT/GI prophylaxis - Patient on warfarin with therapeutic INR of 2.8 present on admission. Check INR daily. Pantoprazole 40 mg IV daily. Total time: Approximately (but not less than) 75 minutes. Sepsis Attestation Sepsis Attestation: Sepsis Ruled Out Date exam was performed: 09/20/24 Time exam was performed: 20:30 Possible Source of Sepsis: Pulmonary Sepsis Organ Dysfunction Criteria Present: Acute Respiratory Failure (New need for BiPAP/CPAP or MV), INR > 1.5 or aPTT > 60 sec and New/Unexplained change in mental status Supportive Findings: In the ER his viral assay returned positive for Influenza A complicated by chestx-ray positive for bilateral pulmonary infiltrates particularly within the Righthilar region consistent with (suspected bacterial) Pneumonia with CT recommendedto rule out underlying mass with a corresponding Leukocytosis of 13.8 K, low-grade fever of 99.6 ?F and irregularly irregular pulse of 143 bpm noted shortly after admission consistent with suspected Sepsis compounded by Atrial Fibrillation; with Rapid Ventricular Response (with INR of 2.8 present on admission) all combining to cause AE COPD with Acute Hypoxic Respiratory Failure; requiring Airvo with VBG that revealed pH 7.39/ pCO2 26 mmHg/ pO2 33 mmHg/ HCO3 25 mmol/L and 62% on room air with VBG pCO2 C mix pCO2 40.8 mmHg plusclinical evidence of Acute Metabolic Encephalopathy Fluid Resuscitation Fluid resuscitation indicated?: Yes Fluid Resuscitation ordered: Lesser volume fluid bolus ordered Amount of fluid ordered: 1 Reason for lesser fluid bolus:: Concern for fluid overload Sepsis Note Date exam was performed: 09/21/24 Time exam was performed: 00:30 Sepsis Attestation: Sepsis re-evaluation was performed Response to fluids: Fluid responsive hypotension Charges/Coding Visit Charges Inpatient E&M: 59548 Init Hosp L3 09/21/24 0645 <Electronically signed by Zeferino Estrada DO> Cosigner Signature (if applicable): CC: Dr. Zeferino Estrada DO; Dr. Neymar Xavier MD~ Signed [facility] Work Phone: [phone]) 104-601003-26-2025 Radiology Diagnostic study note [facility] Imaging Services [address] [place] [id number] Chest, Abd, Pel w/Contrast MR#: [id number] Acct: [id number] Name: HATTIE VALDERRAMA Rep #: [id number] : 1945 M 79 From: Cherri Astudillo MD PCP: Dr. Neymar Xavier MD Status: ADM IN Study:CT Chest, Abd, Pel w/Contrast Date of E xam: 09/21/24 Exam# [id number] Ordering Dr: Zeferino Alston DO PROCEDURE: CT CHEST, ABD, PEL W/CONTRAST 09/21/2024 REASON FOR EXAM: SUSPECTED MASS AND PNA ON NONCONTRASTED CT. TECHNIQUE: Chest, abdomen and pelvis CT with intravenous contrast. Coronal and Sagittal reconstruction series were provided. One or more dose reduction techniques were used (e.g., Automated exposure control, adjustment of the mA and/or kV according to patient size, use of iterative reconstruction technique. PATIENT PREPARATION: Per protocol ORAL CONTRAST TYPE: None. AMOUNT: mL CONTRAST: Isovue 370 VOLUME: 100mL Gauge IV COMPARISON: CT chest 09/20/[address] abdomen and pelvis 05/20/2022 FINDINGS: CT CHEST: Hardware: None . Lymph nodes: Mildly enlarged bilateral hilar lymph nodes. For example 16 mm lefthilar node (series 2, image 64) Heart and Vasculature: Cardiomegaly. No pericardial effusion. Atherosclerotic calcifications of thethoracic aorta. Pulmonary arteries are unremarkable. Lungs and Airways: Central airways are patent without endobronchial lesions. Left lower lobe consolidative opacity and scattered ground-glass opacities, likely secondary to atrophy lobar pneumonia. No suspicious pulmonary nodules. No pneumothorax. No pleural effusion. Bones: Degenerative changes of the thoracic spine. Diffuse circumferential esophageal wall thickening. CT ABDOMEN/PELVIS: Liver: Homogeneous attenuation. Scattered calcified granulomas. Gallbladder: No ductal dilation. Gallbladder is unremarkable. Spleen: No splenomegaly. Calcified granulomas. Pancreas: Normal size without evidence of mass surrounding inflammation or ductal dilation. Adrenals: Left adrenal thickening. Right adrenal gland is unremarkable. Kidneys: 8 mm medial left upper pole simple cyst. No suspicious mass or enhancement. 4 mm right inferior pole calculus without hydronephrosis. Bladder: Urinary bladder is unremarkable. Reproductive Organs: Mild prostatomegaly. Bowel: Stomach is unremarkable. No bowel dilation or wall thickening. Colonic diverticulosis without diverticulitis. Moderate colonic stool. Appendix is normal. Lymph nodes: No suspicious abdominopelvic adenopathy. Vasculature: Severe diffuse diffuse atherosclerotic calcifications are noted. Peritoneum / Retroperitoneum: No ascites. Bones: Degenerative changes of the spine. Right hip arthroplasty. CT/CT Chest, Abd, Pel w/Contrast IMPRESSION: Chest: Left lower lobe consolidative and ground-glass opacities, compatible with pneumonia. A few enlarged hilar likely reactive lymph nodes. Abdomen and pelvis: No acute findings in the abdomen and pelvis. 4 mm right inferior pole calculus, without hydronephrosis. Colonic diverticulosis without diverticulitis. Reading Location: [facility] CC: Dr. Zeferino Estrada DO; Dr. Neymar Xavier MD ~ Press Operator Meat: Signed [facility]03-26-2025 History and physical note [facility] Medical Records Department [address] [place] [id number] H&P Exam - Hospitalist 09/20/241942 MR#: [id number] Acct: [id number] Name: HATTIE VALDERRAMA Rep #:[id number] : 1945 79 From: Zeferino Azevedo DO PCP: Dr. Neymar Xavier MD Status: ADM IN Location: ICU ICU02-1 [facility] - General General Date of Admission: 09/20/24 Date of Service: 09/20/24 Chief Complaint: SOB, Cough and Body Aches. HPI Narrative HATTIE VALDERRAMA, is a 79 M with a past medical history of essential hypertension; on losartan and metoprolol, history of hyperlipidemia; currently not on treatment, overweight; with BMI of 29.7 this admission, remote history of tobacco abuse (quit 1979), chronic atrial fibrillation; on warfarin, DM-2;of unknown control on metformin and glimepiride, history of renal calculi; most recent (2021 on theRight) and OA; with history of THR and TKR chronic low back pain who presents to [facility] ER complaining of shortness of breath, cough and body aches. Mr. Valderrama is a suboptimal historian at this time so information was gathered from chart, medical staff, computer and his at the bedside. According to the records he began to become ill over the weekend on Friday, September 20, 2024 with aviral upper respiratory illness that progressively worsened with his then becoming sick with asimilar viral upper respiratoryillness later in the weekend. His reported to the ER provider that he had decreased oral intake and malaise with nonproductive cough and increasingly labored respir ations. There is no report of fever, chills, nausea, vomiting, diarrhea, constipation, abdominal pain, dysuria, chest pain, rash or headache. In the ER his viral assay returned positive for InfluenzaA complicated by chestx-ray positive for bilateral pulmonary infiltrates particularly within the Righthilar region consistent with (suspected bacterial) Pneumonia with CT recommendedto rule out underlying mass with a corresponding Leukocytosis of 13.8 K, low-grade Fever of 99.6 ?F and irregularly irregular pulse of ~143 bpm noted shortlyafter admission consistent with suspected Sepsis compounded by Atrial Fibrillation; with Rapid Ventricular Response (with INR of 2.8 present on admission) all co mbining to cause AE COPD with Acute Hypoxic Respiratory Failure; requiring Airvo with VBG that revealed pH 7.39/ pCO2 26 mmHg/ pO2 33 mmHg/ HCO3 25 mmol/L and 62% on room air with VBG pCO2 C mix fUB659.8 mmHg pluslaboratory evidence of Dehydration; with BUN/creatinine ratio of 34.2 present onadmission in addition to clinical evidence of Acute Metabolic Encephalopathy. He was then admitted to theICU for ongoing care under the sepsis protocol for astay of is expected to extend beyond 2 midnights. [facility] Medical History Kidney stones Diabetes Atrial fibrillation Hypertension Home Medications ?Medication ?Instructions ?Recorded ?Last Taken ?Type atorvastatin 40 mg tablet 40 mg PO QHS CHOLESTEROL Unknown History glimepiride 2 mg tablet 2 mg PO DAILY DIABETES 05/20 Unknown History losartan 50 mg tablet 100 mg PO DAILY BLOOD PRESSU RE 05/20/22 Unknown History metformin 500 mg tablet 1,000 mg PO BID DIABETES Unknown History metoprolol succinate 100 mg 100 mg PO DAILY BLOOD PRES SURE AND 05/20/22 Unknown History tablet,extended release 24 hr HEART RATE warfarin 2 mg tablet 4 mg PO SUTUTHSA 05/20/22 Un known History warfarin 2 mg tablet 6 mg PO QMWF 05/20/22 Unknow n History Allergy/AdvReac Type Severity Reaction Status Date / Time No Known Allergies Allergy Verified 09/20/24 17:36 Surgical History History of hip replacement History of knee replacement Social History Smoking Status: Former smoker ROS ROS Narrative Full review of systems was not possible due to patient's metabolic encephalopathy. Vital Signs Vital Signs Vital Signs: 09/20/24 17:34 09/20/24 17:36 09/20/24 17:57 Temperature 98.3 F 98.3 F Temperature Source Oral Oral Pulse Rate 124 H 124 H 121 H Respiratory Rate 36 H 36 H 36 H Respiratory Effort Respiratory Depth Respiratory Pattern Blood Pressure 140/83 H 140/83 H 139/71 H Blood Pressure Mean 102 102 93 Pulse Ox 92 92 93 Oxygen Delivery Method Room Air Room Air Room Air 09/20/24 17:57 09/20/24 18:18 09/20/24 18:42 Temperature 98.9 F Temperature Source Oral Pulse Rate 138 H Respiratory Rate 24 H Respiratory Effort Short of Breath Labored Respiratory Depth Shallow Respiratory Pattern Tachypnea Blood Pressure 172/81 H Blood Pressure Mean 111 Pulse Ox 93 93 Oxygen Delivery Method Room Air Room Air Room Air 09/20/24 19:00 09/20/24 19:05 09/20/24 19:15 Temperature 99.6 F H Temperature Source Temporal Pulse Rate 143 H 137 H 139 H Respiratory Rate 30 H 34 H 34 H Respiratory Effort Respiratory Depth Respiratory Pattern Blood Pressure 172/61 H 146/87 H Blood Pressure Mean 98 102 Pulse Ox 92 90 Oxygen Delivery Method Room Air 09/20/24 19:30 09/20/24 19:31 Temperature Temperature Source Pulse Rate 133 H 123 H Respiratory Rate 29 H 33 H Respiratory Effort Respiratory Depth Respiratory Pattern Blood Pressure 140/84 H 140/84 H Blood Pressure Mean 99 102 Pulse Ox 96 97 Oxygen Delivery Method Airvo Airvo Weight Weight: 219 lb 4.8 oz Body Mass Index (BMI) 29.7 Physical Exam Const alert Constitutional Narrative: Moderately labored respirations with chronically ill appearance and mild confusion. General Appearance: cooperative Orientation / Consciousness: confused HEENT normocephalic, head/scalp atraumatic, hearing grossly normal bilaterally and moist oral mucous membranes Eyes PERRL, EOMs intact bilaterally and conjunctivae normal Neck no lymphadenopathy, supple and no JVD Resp Resp Narrative: Labored respirations with inspiratory and expiratory wheezing and coarse rhonchithroughout. Auscultation: rhonchi and wheezes Cardio Cardio Narrative: Irregularly irregular at ~130-140 bpm. GI normal to inspection, nondistended, normoactive bowel sounds, soft to palpation,non-tender and non-distended Extremity normal to inspection, full ROM and no clubbing, cyanosis or edema Skin Skin Narrative: Patient has evidence of rash, abscess, wounds or jaundice. Neuro CN's II-XII intact bilaterally, moves all extremities and no focal motor deficits Sensorium / Orientation: awake, alert, oriented to person and oriented to place Speech: speech normal Psych affect normal Results Medical Records Data Attestation: I reviewed the patient's medical records Lab / Micro Data Attestation: I reviewed the patient's lab results. 09/20/24 17:53 09/20/24 17:53 Labs: Laboratory Results - last 24 hr 09/20/24 17:53: WBC 13.8 H, RBC 4.10 L, Hgb 13.0, Hct 38.4 L, MCV 93.7, MCH 31.7, MCHC 33.9, RDW Std Deviation 49.1 H, RDW Coeff of Risa 14.4, Plt Count 209,MPV 11.4, Immature Gran % (Auto) 0.700, Neut % (Auto) 84.1 H, Lymph % (Auto) 4.8L, [place] % (Auto) 9.6, Eos % (Auto) 0.4, Baso % (Auto) 0.4, Absolute Neuts (auto)11.7 H, Absolute Lymphs (auto) 0.66 L, Nucleated RBC % 0, Platelet Estimate A, PT 30.1 H, INR 2.8, APTT 52.3 H, Sodium 133, Potassium 4.7, Chloride 98, Carbon Dioxide 21.5, Anion Gap 14, BUN 41 H, Creatinine 1.19, Estim Creat Clear Calc 62.48, Est GFR (MDRD) Non-Af 63, BUN/Creatinine Ratio 34.2 H, Glucose 248 H, Calcium 9.7, Total Bilirubin 0.79, AST 36, ALT 23, Alkaline Phosphatase 62, Troponin T High Sens 14, Total Protein 7.7, Albumin 4.0, Globulin 3.8, Albumin/Globulin Ratio1.1 09/20/24 17:54: Lactic Acid 1.1 09/20/24 19:03: Urine Color Yellow, Urine Clarity Clear, Urine pH 6.0, Ur Specific [place] 1.020, Urine Protein 100 H, Urine Glucose (UA) 250 H, Urine Ketones Negative, Urine Occult Blood 150 H, Urine Nitrite Negative, Urine Bilirubin Negative, Urine Urobilinogen Normal, Ur Leukocyte Esterase Negative, Urine RBC 0-5 SEEN, Urine WBC 0-5 SEEN, Ur Squamous Epith Cells 0 SEEN, Urine Bacteria 1+, Urine Mucus 0 SEEN Micro: Microbiology 09/20/24 18:20 Mucosa - Nose SARS-CoV-2, Influenza & RSV (PCR) - Final Influenzae A ABG Data ABG results: ABG 09/20/24 19:03 Specimen Type OSCAR Sample Site Not entered VBG pH 7.39 VBG pO2 33 VBG HCO3 25 VBG Total CO2 26 VBG O2 Sat (Calc) 62 VBG Base Excess -1 POC Mix VBG pCO2 Pt Tmp 40.8 L O2 Delivery Device Room Air Imaging Radiology Impression Chest X-Ray 09/20/24 18:45 IMPRESSION: Bilateral pulmonary infiltrates particularly within the right hilar region. Short-term follow-up isrecommended if this persists, CT chest should be performed to rule out underlying mass. No pneumothorax. Reading Location: [facility] Imaging Services [address] [place] [address] Chest without Contrast MR#: [id number] Acct: [id number] Name: HATTIE VALDERRAMA Rep #: [id number] : 1945 M 79 From: Tal Negron MD PCP: Dr. Neymar Xavier MD Status: ADM IN Study: Chest without Contrast Date of Exam: 09/20/24 Exam# [id number] Ordering Dr: Stone Leong DO PROCEDURE: CHEST WITHOUT CONTRAST 09/20/2024 REASON FOR EXAM: ASSESS FOR POSSIBLE MASS TECHNIQUE: Chest CT without contrast. Coronal and Sagittal reconstruction series were provided. One or more dose reduction techniques were used (e.g., Automated exposure control, adjustment of the mA and/or kV according to patient size, use of iterative reconstruction technique RADIATION DOSE SUMMARY: DLP: 777.4 mGycm COMPARISON: Chest x-ray performed on the same date. FINDINGS: Limited examination due to lack of intravenous contrast. The trachea and central bronchial tree are patent. There is no pleural pericardial effusion. The heart is normal in size. There are calcified density within the spleen and the liver which may be suggestive of prior history of granulomatous disease. Correlate clinically. Nonobstructing right intrarenal calculi is present. Hypodense structures seenwithin the left kidney measuring up to 2.7 cm, incompletely characterized (best seen on image 123/138). Evaluation of lung parenchyma is limited due to respiratory motion abnormalities. Large infiltratespresent within the left lower lobe, highly suggestive of pneumonia. Follow-up until clearing is recommended. Minor infiltrates also present within the medial basal segment of the right lower lobe (best seen on image 172/270), whichmay also be infectious in nature. Evaluation for hilar mass is limited due to lack of IV contrast. Calcified lymph nodes within the bilateral hilum, [id number] may suggest history of granulomatous disease. 2.4 cm lytic lesion seen within the right scapula best seen on image 18/138. Differential includes Mets or myeloma. Multilevel degenerative changes present within the thoracic spine. No definite acute fracture or dislocation is seen. Atheromatous calcification is seen within the aorta and its branches. CT/Chest without Contrast IMPRESSION: Limited examination due to lack of IV contrast. Evaluation of hilar mass is limited. Large left lower lobe infiltrates highly worrisome for infectious process. Minor infiltrates seen within the right lower lobe which may also suggest infectious process. No definite right hilar mass is present. Lytic lesion within the right scapula may suggest metastatic disease versus myeloma. Nonobstructing right renal calculi. Short-term follow-up study with IV contrast is suggested. Other findings as above. Reading Location: [id number] CC: Dr. Stone Leong DO; Dr. Neymar Xavier MD ~ Press Operator Meat: Signed Assessment & Plan Assessment/Plan (1) Sepsis: QUALIFIERS: Sepsis acute organ dysfunction status: with acute organ dysfunction Sepsis type: sepsisdue to unspecified organism Severe sepsis acute organ dysfunction type: encephalopathy Severe sepsis shock status:without septic shock Qualified Code(s): A41.9 - Sepsis, unspecified organism; R65.20 - Severe sepsis without septic shock; G93.41 - Metabolic encephalopathy (2) Influenza A: (3) Multifocal pneumonia: (4) COPD exacerbation: (5) Acute hypoxic respiratory failure: (6) Atrial fibrillation with RVR: (7) Dehydration: (8) Acute metabolic encephalopathy: (9) Overweight (BMI 25.0-29.9): PLAN: Plan 1. Viral assay returned positive for Influenza A with chest x-ray positive for bilateral pulmonary infiltrates particularly within the Right hilar region consistent with (suspected bacterial) Pneumonia with CT recommended to rule out underlying mass with a corresponding Leukocytosis of 13.8 K, low-grade Fever of 99.6 ?F and irregularly irregular pulse of 143 bpm noted shortly after admissionconsistent with suspected Sepsis - Admit to ICU for treatment under the sepsis protocol. Continue IV azithromycin begun in ER and stop ceftriaxone in favor ofIV piperacillin-tazobactam to cover gram-negative's and anaerobes. CT scan of the chest without contrast is pending at this time to evaluate for pos sible massgiven patient's former history of tobacco abuse. Check urinary antigens to Streptococcus pneumonia and Legionella. Continue oseltamivir begun in ER per protocol. Give mucolytics as needed. Give acetaminophen as needed pain or fever. 2. AE COPD with Acute Hypoxic Respiratory Failure; requiring Airvo with VBG that revealed pH 7.39/ pCO2 26 mmHg/ pO2 33 mmHg/ HCO3 25 mmol/L and 62% on roomair with VBG pCO2 C mix pCO2 40.8 mmHg attributable to #1 - Check ABG to establish baseline. Continue methylprednisolone 60 mg IV twice daily. Give scheduled and as needed nebulizers. Wean Airvo as tolerated. 3. Atrial Fibrillation; with Rapid Ventricular Response (with INR of 2.8 present on admission) compounding #1 & #2 - Give digoxin IV daily with a goal tokeep heart rate less than 100 bpm. Hold warfarin for one dose and then restart at ~25% of previous to prevent supratherapeutic INR. Check PT/INR daily to follow trend. 4. Dehydration; evidenced by elevated BUN/creatinine ratio of 34.2 present on admission adding to the medical complexity of #1 - #3 - Volume resuscitate and recheck renal indices daily to follow hopeful trend of improvement. Hemoccult stools. 5. Acute Metabolic Encephalopathy due to #1 - #4 - Check TSH, UDS, ANDRIA, B12 andFolate levels to evaluate for potential reversible causes of confusion. Otherwise, we will minimize BL[place] [employer]ER-active medications in an attempt to allow his sensorium to clear and monitor for improvement. 6. Overweight; with BMI of 29.7 this admission adding to the burden of disease outlined from #1 - #5 - Weight loss will be recommended. Check TSH. 7. Essential Hypertension; on losartan and metoprolol - Hold scheduled antihypertensives until infections outlined in #1 have been neutralized. Give IV hydralazine as needed for systolic blood pressure greater than 160 mmHg. 8. History of hyperlipidemia; currently not on treatment - Check Lipid Profile to confirm status. 9. Remote history of tobacco abuse (quit 1979) - Noted. 10. DM-2; of unknown control on metformin and glimepiride - Hold oral hypoglycemic medications. Give ADA diet plus FSBS before every meal at bedtime and lowest-intensity SSI. Check hemoglobin A1c to objectively evaluate quality of diabetic control. 11. History of renal calculi; most recent (2021 on the Right) - Stable with no evidence of recurrence at this time. 12. OA; with history of THR and TKR chronic low back pain - Give acetaminophen prn pain or fever. 13. DVT/GI prophylaxis - Patient on warfarin with therapeutic INR of 2.8 present on admission. Check INR daily. Pantoprazole 40 mg IV daily. Total time: Approximately (but not less than) 75 minutes. Sepsis Attestation Sepsis Attestation: Sepsis Ruled Out Date exam was performed: 09/20/24 Time exam was performed: 20:30 Possible Source of Sepsis: Pulmonary Sepsis Organ Dysfunction Criteria Present: Acute Respiratory Failure (New need for BiPAP/CPAP or MV), INR > 1.5 or aPTT > 60 sec and New/Unexplained change in mental status Supportive Findings: In the ER his viral assay returned positive for Influenza A complicated by chestx-ray positive for bilateral pulmonary infiltrates particularly within the Righthilar region consistent with (suspectedbacterial) Pneumonia with CT recommendedto rule out underlying mass with a corresponding Leukocytosis of 13.8 K, low-grade fever of 99.6 ?F and irregularly irregular pulse of 143 bpm noted shortly after admission consistent with suspected Sepsis compounded by Atrial Fibrillation; with Rapid Ventricular Response (with INR of 2.8 present on admission) all combining to cause AE COPD with Acute Hypoxic Respiratory Failure; requiring Airvo with VBG that revealed pH 7.39/ pCO2 26 mmHg/ pO2 33 mmHg/ HCO3 25 mmol/L and 62% on room air with VBG pCO2 C mix pCO2 40.8 mmHg plusclinical evidence of Acute Metabolic Encephalopathy Fluid Resuscitation Fluid resuscitation indicated?: Yes Fluid Resuscitation ordered: Lesser volume fluid bolus ordered Amount of fluid ordered: 1 Reason for lesser fluid bolus:: Concern for fluid overload Sepsis Note Date exam was performed: 09/21/24 Time exam was performed: 00:30 Sepsis Attestation: Sepsis re-evaluation was performed Response to fluids: Fluid responsive hypotension Charges/Coding Visit Charges Inpatient E&M: 68680 Init Hosp 09/21/24 0645 Cosigner Signature (if applicable): CC: Dr. Zeferino Estrada DO; Dr. Neymar Xavier MD~ Signed [facility]03-26-2025 Discharge summary Author Stone Regalado-Tomas [facility] Note Date/Time September 21, 2024 2:3 7am [facility] Medical Records Department [address] [place] [address] Emergency Department Summary 09/20/24 MR#: [id number] Acct: [id number] Name: HATTIE VALDERRAMA Rep #:[id number] : 1945 79 From: Stone pizarro DO PCP: Dr. Neymar Xavier MD Status: ADM IN Location: ICU ICU02-1 HPI History of Present Illness Chief Complaint: Shortness of Breath Narrative Narrative: Chief complaint and HPI: Shortness of breath, body aches, cough. Patient is a very poor historian. 79-year-old male with past medical history of atrial fibrillation on Coumadin, DM, HLD, chronic low back pain presents for evaluationof shortness of breath, cough, body aches. Onset of symptoms this weekend. has similar symptoms. Patient endorses decreased p.o. intake. He denies any chest pain, abdominal pain, nausea, vomiting, diarrhea, dysuria. Review of systems: See HPI Medications: As listed on the chart Allergies: As listed on the chart PFSH: Per chart Vital signs: As listed on the chart. Reviewed. Physical exam: Gen: A&O x3 but poor historian, unwell appearing Head: Normocephalic, atraumatic Eyes: No sclera icterus, conjunctiva clear, PERRL, EOMI ENT: Moist mucous membranes Neck: Trachea midline, No JVD CV: Irregular irregular rhythm but tachycardic, no murmurs, no peripheral edema Resp: Lungs diminished bilaterally and coarse with wheezing, dyspneic, tachypneic GI: Abd soft, non-distended, non-tender, no r/r/g Musc: Full ROM, no deformity Skin: Warm, dry Neuro: Alert, oriented, grossly intact, sensation intact Psych: Cooperative, appropriate mood and affect [facility] Medical History Kidney stones Diabetes Atrial fibrillation Hypertension Home Medications ?Medication ?Instructions ?Recorded ?Last Taken ?Type atorvastatin 40 mg tablet 40 mg PO QHS CHOLESTEROL Unknown History glimepiride 2 mg tablet 2 mg PO DAILY DIABETES 05/20 Unknown History losartan 50 mg tablet 100 mg PO DAILY BLOOD PRESSU RE 05/20/22 Unknown History metformin 500 mg tablet 1,000 mg PO BID DIABETES Unknown History metoprolol succinate 100 mg 100 mg PO DAILY BLOOD PRES SURE AND 05/20/22 Unknown History tablet,extended release 24 hr HEART RATE warfarin 2 mg tablet 4 mg PO SUTUTHSA 05/20/22 Un known History warfarin 2 mg tablet 6 mg PO QMWF 05/20/22 Unknow n History Allergy/AdvReac Type Severity Reaction Status Date / Time No Known Allergies Allergy Verified 09/20/24 17:36 Surgical History History of hip replacement History of knee replacement Social History Smoking Status: Former smoker EXAM Physical Exam Const Vital Signs: 09/20/24 17:34 09/20/24 17:36 09/20/24 17:57 Temperature 98.3 F 98.3 F Temperature Source Oral Oral Pulse Rate 124 H 124 H 121 H Respiratory Rate 36 H 36 H 36 H Respiratory Effort Respiratory Depth Respiratory Pattern Blood Pressure 140/83 H 140/83 H 139/71 H Blood Pressure Mean 102 102 93 Pulse Ox 92 92 93 Oxygen Delivery Method Room Air Room Air Room Air Fraction of Inspired Oxygen (FIO2) 09/20/24 17:57 09/20/24 18:18 09/20/24 18:36 Temperature Temperature Source Pulse Rate 141 H Respiratory Rate 36 H Respiratory Effort Short of Breath Labored Respiratory Depth Shallow Respiratory Pattern Tachypnea Tachypnea Blood Pressure Blood Pressure Mean Pulse Ox 93 Oxygen Delivery Method Room Air Room Air Fraction of Inspired Oxygen (FIO2) 09/20/24 18:42 09/20/24 19:00 09/20/24 19:05 Temperature 98.9 F 99.6 F H Temperature Source Oral Temporal Pulse Rate 138 H 143 H 137 H Respiratory Rate 24 H 30 H 34 H Respiratory Effort Respiratory Depth Respiratory Pattern Blood Pressure 172/81 H 172/61 H Blood Pressure Mean 111 98 Pulse Ox 93 92 90 Oxygen Delivery Method Room Air Room Air Fraction of Inspired Oxygen (FIO2) 09/20/24 19:15 09/20/24 19:21 09/20/24 19:30 Temperature Temperature Source Pulse Rate 139 H 137 H 133 H Respiratory Rate 34 H 36 H 29 H Respiratory Effort Respiratory Depth Respiratory Pattern Tachypnea Blood Pressure 146/87 H 140/84 H Blood Pressure Mean 102 99 Pulse Ox 97 96 Oxygen Delivery Method Airvo Fraction of Inspired Oxygen (FIO2) 28 09/20/24 19:31 09/20/24 20:00 Temperature 99.3 F H Temperature Source Pulse Rate 123 H 130 H Respiratory Rate 33 H 27 H Respiratory Effort Respiratory Depth Respiratory Pattern Blood Pressure 140/84 H 117/54 L Blood Pressure Mean 102 75 Pulse Ox 97 95 Oxygen Delivery Method Airvo Fraction of Inspired Oxygen (FIO2) MDM MDM MDM Narrative Medical decision making narrative: 79-year-old male with past medical history of atrial fibrillation on Coumadin, DM, HLD, chronic low back pain presents for evaluation of shortness of breath, cough, body aches. On presentation, patient is tachycardic with increased work of breathing. See physical exam findings. Differential diagnosis includes but is not limited to pneumonia, COVID-19 infection, influenza, electrolyte abnormality, CHRISS, UTI, ACS. Patient made a sepsis alert. NS bolus ordered. 30cc/kg bolus not given given patient's respiratory status and concern for worsening decline of status. Patient is not hypotensive. Rocephin and azithromycin ordered for suspected pneumonia. Solu-Medrol and DuoNebs ordered for symptoms. If patient's increased work of breathing does not improve he willlikely need BiPAP versus Airvo. Laboratory workup ordered including chest x-ray. EKG reviewed. CBC with leukocytosis of 13.8. No anemia. INR therapeuticat 2.8. CMP without significant electrolyte abnormality or CHRISS. Patient does have hyperglycemia. He is a known diabetic. No transaminitis. Lactic acid unremarkable. Troponin unremarkable. Chest x-ray concerning for pneumonia. Patient already received antibiotics. On reevaluation, patient still has increased work of breathing and his tachycardia has worsened to the 140s. VBG relatively unremarkable. Patient placed on Airvo instead of BiPAP. Although patient's tachycardia is likely responsive to his current infection we will givemetoprolol to improve heart rate. Patient is positive for influenza. Tamiflu ordered. On reevaluation, patient's work of breathing has improved on Airvo. His tachycardia has improved to the 110s. Patient will warrant admission. He was updated of all the results and the plan. He confirmed understanding. Patient was discussed with Dr. Altamirano. He accepted admission however given chest x-ray read concerning for possible underlying mass he is recommending CT chest without PE ordered. This was ordered. Patient will be admitted to the ICU. EKG: Interpreted by me/EM physician: EKG shows atrial fibrillation with RVR. Right bundle branch block. Heart rate 108. Diagnostic: Interpreted by me/EM physician: Chest x-ray with bilateral pulmonary infiltrates. Concerning for pneumonia. Per radiology short-term follow-up is recommended if this persists, CT chest chest should be performed to rule out underlying mass. 35 minutes of critical care time utilized in managing the patient. This is due to high probability of and deterioration of the patient based on the patient's condition and excludes any separately billable procedures. Impression: 1. Sepsis secondary to pneumonia 2. Influenza A infection 3. A-fib with RVR 4. Hyperglycemia in known diabetic Lab Data Labs: Laboratory Results - last 24 hr 09/20/24 09/20/24 09/20/24 17:53 17:54 19:03 WBC 13.8 H RBC 4.10 L Hgb 13.0 Hct 38.4 L MCV 93.7 MCH 31.7 MCHC 33.9 RDW Std Deviation 49.1 H RDW Coeff of Risa 14.4 Plt Count 209 MPV 11.4 Immature Gran % (Auto) 0.700 Neut % (Auto) 84.1 H Lymph % (Auto) 4.8 L [place] % (Auto) 9.6 Eos % (Auto) 0.4 Baso % (Auto) 0.4 Absolute Neuts (auto) 11.7 H Absolute Lymphs (auto) 0.66 L Nucleated RBC % 0 Platelet Estimate A PT 30.1 H INR 2.8 APTT 52.3 H Sodium 133 Potassium 4.7 Chloride 98 Carbon Dioxide 21.5 Anion Gap 14 BUN 41 H Creatinine 1.19 Estim Creat Clear Calc 62.48 Est GFR (MDRD) Non-Af 63 BUN/Creatinine Ratio 34.2 H Glucose 248 H Hemoglobin A1c 6.9 Lactic Acid 1.1 Calcium 9.7 Total Bilirubin 0.79 AST 36 ALT 23 Alkaline Phosphatase 62 Troponin T High Sens 14 Total Protein 7.7 Albumin 4.0 Globulin 3.8 Albumin/Globulin Ratio 1.1 Urine Color Yellow Urine Clarity Clear Urine pH 6.0 Ur Specific [place] 1.020 Urine Protein 100 H Urine Glucose (UA) 250 H Urine Ketones Negative Urine Occult Blood 150 H Urine Nitrite Negative Urine Bilirubin Negative Urine Urobilinogen Normal Ur Leukocyte Esterase Negative Urine RBC 0-5 SEEN Urine WBC 0-5 SEEN Ur Squamous Epith Cells 0 SEEN Urine Bacteria 1+ Urine Mucus 0 SEEN Urine Opiates Screen NEGATIVE U Buprenorphine Qual NEGATIVE Ur Oxycodone Screen NEGATIVE Urine Methadone Screen NEGATIVE Urine Fentanyl Screen NEGATIVE Ur Barbiturates Screen NEGATIVE Ur Phencyclidine Scrn NEGATIVE Ur Amphetamines Screen NEGATIVE U Benzodiazepines Scrn NEGATIVE Urine Cocaine Screen NEGATIVE U Cannabinoids Screen NEGATIVE ABG Data ABG results: ABG 09/20/24 19:03 Specimen Type OSCAR Sample Site Not entered VBG pH 7.39 VBG pO2 33 VBG HCO3 25 VBG Total CO2 26 VBG O2 Sat (Calc) 62 VBG Base Excess -1 POC Mix VBG pCO2 Pt Tmp 40.8 L O2 Delivery Device Room Air Radiography Diagnostic Testing: Clinical Impression(s) from Imaging Studies Chest X-Ray 09/20/24 18:45 IMPRESSION: Bilateral pulmonary infiltrates particularly within the right hilar region. Short-term follow-up is recommended if this persists, CT chest should be performed to rule out underlying mass. No pneumothorax. Reading Location: [facility] Chest CT 09/20/24 19:45 IMPRESSION: Limited examination due to lack of IV contrast. Evaluation of hilar mass is limited. Large left lower lobe infiltrates highly worrisome for infectious process. Minor infiltrates seen within the right lower lobe which may also suggest infectious process. No definite right hilar mass is present. Lytic lesion within the right scapula may suggest metastatic disease versus myeloma. Nonobstructing right renal calculi. Short-term follow-up study with IV contrast is suggested. Other findings as above. Reading Location: [facility] Discharge Plan Disposition Disposition: Acute Care Hospital [facility] Discharge Date/Time: 09/20/24 20:44 What to do if you have Problems For any increased pain, shortness of breath, bleeding, nausea or vomiting, chestpain, or any unexpected problems, contact your Primary Care Provider. Call [facility] ([phone]) or report to the closest Emergency Room. Call 911 if necessary. 09/21/24 0232 <Electronically signed by Stone Leong DO> Cosigner Signature (if applicable): CC: Dr. Neymar Xavier MD ~ Signed ADDENDUM by Dr. Stone Leong DO on 09/21/24 at 0237 5. COPD exacerbation 6. Acute hypoxic respiratory failure requiring Airvo 09/21/24 0237<Electronically signed by Stone Leong DO> Cosigner Signature (if applicable): cc: Dr. Neymar Xavier MD ~* Signed [facility] Work Phone: [phone] 264-472403-26-2025 Discharge summary [facility] Medical Records Department [address] [place] [address] Emergency Department Summary 09/20/24 MR#: [id number] Acct: [id number] Name: HATTIE VALDERRAMA Rep #:[id number] : 1945 79 From: Stone pizarro DO PCP: Dr. Neymar Xavier MD Status: ADM IN Location: ICU ICU02-1 HPI History of Present Illness Chief Complaint: Shortness of Breath Narrative Narrative: Chief complaint and HPI: Shortness of breath, body aches, cough. Patient is a very poor historian. 79-year-old male with past medical history of atrial fibrillation on Coumadin, DM, HLD, chronic low back pain presents for evaluationof shortness of breath, cough, body aches. Onset of symptoms this we ekend. has similar symptoms. Patient endorses decreased p.o. intake. He denies any chest pain,abdominal pain, nausea, vomiting, diarrhea, dysuria. Review of systems: See HPI Medications: As listed on the chart Allergies: As listed on the chart PFSH: Per chart Vital signs: As listed on the chart. Reviewed. Physical exam: Gen: A&O x3 but poor historian, unwell appearing Head: Normocephalic, atraumatic Eyes: No sclera icterus, conjunctiva clear, PERRL, EOMI ENT: Moist mucous membranes Neck: Trachea midline, No JVD CV: Irregular irregular rhythm but tachycardic, no murmurs, no peripheral edema Resp: Lungs diminished bilaterally and coarse with wheezing, dyspneic, tachypneic GI: Abd soft, non-distended, non-tender, no r/r/g Musc: Full ROM, no deformity Skin: Warm, dry Neuro: Alert, oriented, grossly intact, sensation intact Psych: Cooperative, appropriate mood and affect [facility] Medical History Kidney stones Diabetes Atrial fibrillation Hypertension Home Medications ?Medication ?Instructions ?Recorded ?Last Taken ?Type atorvastatin 40 mg tablet 40 mg PO QHS CHOLESTEROL Unknown History glimepiride 2 mg tablet 2 mg PO DAILY DIABETES 05/20 Unknown History losartan 50 mg tablet 100 mg PO DAILY BLOOD PRESSU RE 05/20/22 Unknown History metformin 500 mg tablet 1,000 mg PO BID DIABETES Unknown History metoprolol succinate 100 mg 100 mg PO DAILY BLOOD PRES SURE AND 05/20/22 Unknown History tablet,extended release 24 hr HEART RATE warfarin 2 mg tablet 4 mg PO SUTUTHSA 05/20/22 Un known History warfarin 2 mg tablet 6 mg PO QMWF 05/20/22 Unknow n History Allergy/AdvReac Type Severity Reaction Status Date / Time No Known Allergies Allergy Verified 09/20/24 17:36 Surgical History History of hip replacement History of knee replacement Social History Smoking Status: Former smoker EXAM Physical Exam Const Vital Signs: 09/20/24 17:34 09/20/24 17:36 09/20/24 17:57 Temperature 98.3 F 98.3 F Temperature Source Oral Oral Pulse Rate 124 H 124 H 121 H Respiratory Rate 36 H 36 H 36 H Respiratory Effort Respiratory Depth Respiratory Pattern Blood Pressure 140/83 H 140/83 H 139/71 H Blood Pressure Mean 102 102 93 Pulse Ox 92 92 93 Oxygen Delivery Method Room Air Room Air Room Air Fraction of Inspired Oxygen (FIO2) 09/20/24 17:57 09/20/24 18:18 09/20/24 18:36 Temperature Temperature Source Pulse Rate 141 H Respiratory Rate 36 H Respiratory Effort Short of Breath Labored Respiratory Depth Shallow Respiratory Pattern Tachypnea Tachypnea Blood Pressure Blood Pressure Mean Pulse Ox 93 Oxygen Delivery Method Room Air Room Air Fraction of Inspired Oxygen (FIO2) 09/20/24 18:42 09/20/24 19:00 09/20/24 19:05 Temperature 98.9 F 99.6 F H Temperature Source Oral Temporal Pulse Rate 138 H 143 H 137 H Respiratory Rate 24 H 30 H 34 H Respiratory Effort Respiratory Depth Respiratory Pattern Blood Pressure 172/81 H 172/61 H Blood Pressure Mean 111 98 Pulse Ox 93 92 90 Oxygen Delivery Method Room Air Room Air Fraction of Inspired Oxygen (FIO2) 09/20/24 19:15 09/20/24 19:21 09/20/24 19:30 Temperature Temperature Source Pulse Rate 139 H 137 H 133 H Respiratory Rate 34 H 36 H 29 H Respiratory Effort Respiratory Depth Respiratory Pattern Tachypnea Blood Pressure 146/87 H 140/84 H Blood Pressure Mean 102 99 Pulse Ox 97 96 Oxygen Delivery Method Airvo Fraction of Inspired Oxygen (FIO2) 28 09/20/24 19:31 09/20/24 20:00 Temperature 99.3 F H Temperature Source Pulse Rate 123 H 130 H Respiratory Rate 33 H 27 H Respiratory Effort Respiratory Depth Respiratory Pattern Blood Pressure 140/84 H 117/54 L Blood Pressure Mean 102 75 Pulse Ox 97 95 Oxygen Delivery Method Airvo Fraction of Inspired Oxygen (FIO2) MDM MDM MDM Narrative Medical decision making narrative: 79-year-old male with past medical history of atrial fibrillation on Coumadin, DM, HLD, chronic lowback pain presents for evaluation of shortness of breath, cough, body aches. On presentation, patient is tachycardic with increased work of breathing. See physical exam findings. Differential diagnosis includes but is not limited to pneumonia, COVID-19 infection, influenza, electrolyte abnormality,CHRISS, UTI, ACS. Patient made a sepsis alert. NS bolus ordered. 30cc/kg bolus not given given patient's respiratory status and concern for worsening decline of status. Patient is not hypotensive. Rocephin and azithromycin ordered for suspected pneumonia. Solu-Medrol and DuoNebs ordered for symptoms. If patient's increased work of breathing does not improve he willlikely need BiPAP versus Airvo. Laboratory workup ordered including chest x- ray. EKG reviewed. CBC with leukocytosis of 13.8. No anemia. INR therapeuticat 2.8. CMP without significant electrolyte abnormality or CHRISS. Patient does have hyperglycemia. He is a known diabetic. No transaminitis. Lactic acid unremarkable. Troponin unremarkable. Chest x-ray concerning for pneumonia. Patient already received antibiotics. On reevaluation, patient still has increased work of breathing and his tachycardia has worsened to the 140s. VBG relatively unremarkable. Patient placed on Airvo instead of BiPAP. Although patient's tachycardia is likely responsive to his current infection we will givemetoprolol to improve heart rate. Patient is positive for influenza. Tamiflu ordered. On reevaluation, patient's work of breathing has improved on Airvo. His tachycardia has improved to the 110s. Patient will warrant admission. He was updated of all the results and the plan. He confirmed understanding. Patient was discussed with Dr. Altamirano. He accepted admission however given chest x-ray read concerning for possible underlying mass he is recommending CT chest without PE ordered. This was ordered. Patient will be admitted to the ICU. EKG: Interpreted by me/EM physician: EKG shows atrial fibrillation with RVR. Right bundle branch block. Heart rate 108. Diagnostic: Interpreted by me/EM physician: Chest x-ray with bilateral pulmonary infiltrates. Concerning for pneumonia. Per radiology short-term follow-up is recommended if this persists, CT chest chest should be performed to rule out underlying mass. 35 minutes of critical care time utilized in managing the patient. This is due to high probability of and deterioration of the patient based on the patient's condition and excludes any separately billable procedures. Impression: 1. Sepsis secondary to pneumonia 2. Influenza A infection 3. A-fib with RVR 4. Hyperglycemia in known diabetic Lab Data Labs: Laboratory Results - last 24 hr 09/20/24 09/20/24 09/20/24 17:53 17:54 19:03 WBC 13.8 H RBC 4.10 L Hgb 13.0 Hct 38.4 L MCV 93.7 MCH 31.7 MCHC 33.9 RDW Std Deviation 49.1 H RDW Coeff of Risa 14.4 Plt Count 209 MPV 11.4 Immature Gran % (Auto) 0.700 Neut % (Auto) 84.1 H Lymph % (Auto) 4.8 L [place] % (Auto) 9.6 Eos % (Auto) 0.4 Baso % (Auto) 0.4 Absolute Neuts (auto) 11.7 H Absolute Lymphs (auto) 0.66 L Nucleated RBC % 0 Platelet Estimate A PT 30.1 H INR 2.8 APTT 52.3 H Sodium 133 Potassium 4.7 Chloride 98 Carbon Dioxide 21.5 Anion Gap 14 BUN 41 H Creatinine 1.19 Estim Creat Clear Calc 62.48 Est GFR (MDRD) Non-Af 63 BUN/Creatinine Ratio 34.2 H Glucose 248 H Hemoglobin A1c 6.9 Lactic Acid 1.1 Calcium 9.7 Total Bilirubin 0.79 AST 36 ALT 23 Alkaline Phosphatase 62 Troponin T High Sens 14 Total Protein 7.7 Albumin 4.0 Globulin 3.8 Albumin/Globulin Ratio 1.1 Urine Color Yellow Urine Clarity Clear Urine pH 6.0 Ur Specific [place] 1.020 Urine Protein 100 H Urine Glucose (UA) 250 H Urine Ketones Negative Urine Occult Blood 150 H Urine Nitrite Negative Urine Bilirubin Negative Urine Urobilinogen Normal Ur Leukocyte Esterase Negative Urine RBC 0-5 SEEN Urine WBC 0-5 SEEN Ur Squamous Epith Cells 0 SEEN Urine Bacteria 1+ Urine Mucus 0 SEEN Urine Opiates Screen NEGATIVE U Buprenorphine Qual NEGATIVE Ur Oxycodone Screen NEGATIVE Urine Methadone Screen NEGATIVE Urine Fentanyl Screen NEGATIVE Ur Barbiturates Screen NEGATIVE Ur Phencyclidine Scrn NEGATIVE Ur Amphetamines Screen NEGATIVE U Benzodiazepines Scrn NEGATIVE Urine Cocaine Screen NEGATIVE U Cannabinoids Screen NEGATIVE ABG Data ABG results: ABG 09/20/24 19:03 Specimen Type OSCAR Sample Site Not entered VBG pH 7.39 VBG pO2 33 VBG HCO3 25 VBG Total CO2 26 VBG O2 Sat (Calc) 62 VBG Base Excess -1 POC Mix VBG pCO2 Pt Tmp 40.8 L O2 Delivery Device Room Air Radiography Diagnostic Testing: Clinical Impression(s) from Imaging Studies Chest X-Ray 09/20/24 18:45 IMPRESSION: Bilateral pulmonary infiltrates particularly within the right hilar region. Short-term follow-up isrecommended if this persists, CT chest should be performed to rule out underlying mass. No pneumothorax. Reading Location: [id number] Chest CT 09/20/24 19:45 IMPRESSION: Limited examination due to lack of IV contrast. Evaluation of hilar mass is limited. Large left lower lobe infiltrates highly worrisome for infectious process. Minor infiltrates seen within the right lower lobe which may also suggest infectious process. No definite right hilar mass is present. Lytic lesion within the right scapula may suggest metastatic disease versus myeloma. Nonobstructing right renal calculi. Short-term follow-up study with IV contrast is suggested. Other findings as above. Reading Location: [id number] Discharge Plan Disposition Disposition: Acute Care Hospital [facility] Discharge Date/Time: 09/20/24 20:44 What to do if you have Problems For any increased pain, shortness of breath, bleeding, nausea or vomiting, chestpain, or any unexpected problems, contact your Primary Care Provider. Call [facility] ([phone]) or report tothe closest Emergency Room. Call 911 if necessary. 09/21/24 023 Cosigner Signature (if applicable): CC: Dr. Neymar Xavier MD ~ Signed ADDENDUM by Dr. Stone Leong DO on 09/21/24 at 0237 5. COPD exacerbation 6. Acute hypoxic respiratory failure requiring Airvo 09/21/24236 Cosigner Signature (if applicable): cc: Dr. Neymar Xavier MD ~* Signed [facility]03-25-2025 Evaluation note* Diagnosis Onset Date Resolution Status Admit Date Acute hypoxic respiratory failure acute September 20, 2024 8:11pm Acute metabolic encephalopathy acute September 20, 2024 8:11pm Atrial fibrillation with RVR acute September 20, 2024 8:11pm Dehydration acute September 20, 025 8:11pm Influenza A acute September 20, 025 8:11pm Lytic bone lesions on xray acute September 20, 2024 8:11pm Multifocal pneumonia acute 2024 8:11pm Overweight (BMI 25.0-29.9) acute September 20, 2024 8:11pm Pneumonia acute September 20 8:11pm Sepsis acute September 20 8:11pm COPD exacerbation chronic August 282024 8:11pm [facility] Work Phone: [phone] 123-373903-25-2025 Radiology Diagnostic study note [facility] Imaging Services [address], [place] [address] Chest without Contrast MR#: [id number] Acct: [id number] Name: HATTIE VALDERRAMA Rep #: [id number] : 1945 M 79 From: Jose Alberto Negron MD PCP: Dr. Neymar Xavier MD Status: ADM IN Study:Chest without Contrast Date of Exam: 09/20/24 Exam# [id number] Ordering Dr: Stone Barksdale DO PROCEDURE: CHEST WITHOUT CONTRAST 09/20/2024 REASON FOR EXAM: ASSESS FOR POSSIBLE MASS TECHNIQUE: Chest CT without contrast. Coronal and Sagittal reconstruction series were provided. One or more dose reduction techniques were used (e.g., Automated exposure control, adjustment of the mA and/or kV according to patient size, use of iterative reconstruction technique RADIATION DOSE SUMMARY: DLP: 777.4 mGycm COMPARISON: Chest x-ray performed on the same date. FINDINGS: Limited examination due to lack of intravenous contrast. The trachea and central bronchial tree are patent. There is no pleural pericardial effusion. The heart is normal in size. There are calcified density within the spleen and the liver which may be suggestive of prior history of granulomatous disease. Correlate clinically. Nonobstructing right intrarenal calculi is present. Hypodense structures seenwithin the left kidney measuring up to 2.7 cm, incompletely characterized (best seen on image 123/138). Evaluation of lung parenchyma is limited due to respiratory motion abnormalities. Large infiltratespresent within the left lower lobe, highly suggestive of pneumonia. Follow-up until clearing is recommended. Minor infiltrates also present within the medial basal segment of the right lower lobe (best seen on image 172/270), whichmay also be infectious in nature. Evaluation for hilar mass is limited due to lack of IV contrast. Calcified lymph nodes within the bilateral hilum, baby-[id number]-[id number]-right may suggest history of granulomatous disease. 2.4 cm lytic lesion seen within the right scapula best seen on image 18/138. Differential includes Mets or myeloma. Multilevel degenerative changes present within the thoracic spine. No definite acute fracture or dislocation is seen. Atheromatous calcification is seen within the aorta and its branches. CT/Chest without Contrast IMPRESSION: Limited examination due to lack of IV contrast. Evaluation of hilar mass is limited. Large left lower lobe infiltrates highly worrisome for infectious process. Minor infiltrates seen within the right lower lobe which may also suggest infectious process. No definite right hilar mass is present. Lytic lesion within the right scapula may suggest metastatic disease versus myeloma. Nonobstructing right renal calculi. Short-term follow-up study with IV contrast is suggested. Other findings as above. Reading Location: [id number] CC: Dr. Stone Leong DO; Dr. Neymar Xavier MD ~ Press Operator Meat: Signed [facility]03-25-2025 Radiology Diagnostic study note [facility] Imaging Services [address] [place], [place] [address] Chest 1 View (Portable) MR#: [id number] Acct: [id number] Name: HATTIE VALDERRAMA Rep #: [id number] : 1945 M 79 From: Jose Alberto Negron MD PCP: Care Physician,No Primary Status: PRE ER Study:Chest 1 View (Portable) Date of Exam: 09/20/24 Exam# [id number] Ordering Dr: Stone Barksdale DO PROCEDURE: CHEST 1 VIEW (PORTABLE) 09/20/2024 REASON FOR EXAM: SOB TECHNIQUE: Frontal view of the chest. COMPARISON: None. FINDINGS: The cardiac silhouette is mildly prominent. There are bilateral pulmonary infiltrates particularly within the right perihilar region. This is worrisome for infectious process. Recommend short-term follow-up until resolution. RAD/Chest 1 View (Portable) IMPRESSION: Bilateral pulmonary infiltrates particularly within the right hilar region. Short-term follow-up isrecommended if this persists, CT chest should be performed to rule out underlying mass. No pneumothorax. Reading Location: [id number] CC: Dr. Stone Leong DO; No Primary Care Physician ~ Press Operator Meat: Signed [facility]02-03-2025 Evaluation + Plan note* Assessment & Plan Note - Neymar Xavier MD - 08/01/2024 11:30 AM ESTAssociated Problem(s): Benign essential hypertension Orders: Comprehensive Metabolic Panel; Future [facility] Work Phone: [phone]) 591-702702-03-2025 Evaluation + Plan note* Assessment & Plan Note - Neymar Xavier MD - 08/01/2024 11:30 AM ESTAssociated Problem(s): Type 2 diabetes mellitus with hyperglycemia, without long-term current use of insulin Orders: Comprehensive Metabolic Panel; Future Hemoglobin A1C; Future [facility] Work Phone: 1(635) 134-719702-03-2025 Evaluation + Plan note* Assessment & Plan Note - Neymar Xavier MD - 08/01/2024 11:30 AM ESTAssociated Problem(s): Hypercholesterolemia Orders: Comprehensive Metabolic Panel; Future TSH with reflex to Free T4 if abnormal; Future Lipid Panel; Future [facility] Work Phone: 1([phone]) 871-549302-03-2025 Evaluation + Plan note* Assessment & Plan Note - Neymar Xavier MD - 08/01/2024 11:30 AM ESTAssociated Problem(s): Hypertriglyceridemia Orders: Comprehensive Metabolic Panel; Future Lipid Panel; Future [facility] Work Phone: 1([phone]) 271-123002-03-2025 Evaluation + Plan note* Assessment & Plan Note - Neymar Xavier MD - 08/01/2024 11:30 AM ESTAssociated Problem(s): Type 2 diabetes mellitus with diabetic cataract, without long-term current use of insulin Orders: Comprehensive Metabolic Panel; Future [facility] Work Phone: [phone]) 747-222902-03-2025 Evaluation + Plan note* Assessment & Plan Note - Neymar Xavier MD - 08/01/2024 11:30 AM ESTAssociated Problem(s): Psoriatic arthritis (Multi) Orders: Comprehensive Metabolic Panel; Future TSH with reflex to Free T4 if abnormal; Future [facility] Work Phone: 1([phone]) 885-676702-03-2025 Evaluation + Plan note* Assessment & Plan Note - Neymar Xavier MD - 08/01/2024 11:30 AM ESTAssociated Problem(s): Chronic atrial fibrillation, unspecified (Multi) Orders: Comprehensive Metabolic Panel; Future TSH with reflex to Free T4 if abnormal; Future [facility] Work Phone: 1([phone]) 407-793902-03-2025 History of Present illness Narrative* Neymar Xavier MD - 08/01/2024 11:30 AM EST Subjective Reason for Visit: Hattie Valderrama is an 79 y.o. male here for a Medicare Wellness visit. Past Medical, Surgical, and Family History reviewed and updated in chart. Reviewed all medications by prescribing practitioner or clinical pharmacist (such as prescriptions,OTCs, herbal therapies and supplements) and documented in the medical record. FEELS FINE, NO COMPLANT Labs Wellness exam Patient Care Team: Neymar Xavier MD as PCP - General Neymar Xavier MD as PCP - [employer] PCP Review of Systems Constitutional: Negative. Negative for chills and fever. HENT: Negative. Negative for congestion. Eyes: Negative. Negative for discharge. Respiratory: Negative. Negative for cough, shortness of breath and wheezing. Cardiovascular: Negative. Negative for chest pain, palpitations and leg swelling. Gastrointestinal: Negative. Negative for abdominal distention, abdominal pain, constipation, diarrhea, nausea and vomiting. Endocrine: Negative. Genitourinary: Negative. Negative for dysuria and urgency. Musculoskeletal: Negative. Negative for back pain, joint swelling and neck stiffness. Skin: Negative. Negative for rash. Allergic/Immunologic: Negative. Negative for immunocompromised state. Neurological: Negative. Negative for light-headedness, numbness and headaches. Hematological: Negative. Negative for adenopathy. Psychiatric/Behavioral: Negative. Negative for agitation, behavioral problems and confusion. All other systems reviewed and are negative. Objective Vitals: BP 124/79 Pulse 83 Ht 1.829 m (6') Wt 103 kg (227 lb) BMI 30.79 kg/m Physical Exam Vitals reviewed. Constitutional: General: He is not in acute distress. Appearance: Normal appearance. HENT: Head: Normocephalic and atraumatic. Nose: Nose normal. Eyes: Conjunctiva/sclera: Conjunctivae normal. Pupils: Pupils are equal, round, and reactive to light. Neck: Vascular: No carotid bruit. Cardiovascular: Rate and Rhythm: Normal rate and regular rhythm. Pulses: Normal pulses. Heart sounds: No gallop. Pulmonary: Effort: Pulmonary effort is normal. No respiratory distress. Breath sounds: Normal breath sounds. No wheezing. Abdominal: General: Bowel sounds are normal. Palpations: Abdomen is soft. Tenderness: There is no abdominal tenderness. Musculoskeletal: General: Normal range of motion. Cervical back: Normal range of motion. No rigidity. Lymphadenopathy: Cervical: No cervical adenopathy. Skin: General: Skin is warm. Findings: No rash. Neurological: General: No focal deficit present. Mental Status: He is alert and oriented to person, place, and time. Psychiatric: Mood and Affect: Mood normal. Behavior: Behavior normal. Assessment & Plan Routine general medical examination at health care facility Orders: 1 Year Follow Up In Primary Care - Wellness Exam; Future Benign essential hypertension Orders: Comprehensive Metabolic Panel; Future Type 2 diabetes mellitus with hyperglycemia, without long-term current use of insulin Orders: Comprehensive Metabolic Panel; Future Hemoglobin A1C; Future Hypercholesterolemia Orders: Comprehensive Metabolic Panel; Future TSH with reflex to Free T4 if abnormal; Future Lipid Panel; Future Hypertriglyceridemia Orders: Comprehensive Metabolic Panel; Future Lipid Panel; Future Type 2 diabetes mellitus with diabetic cataract, without long-term current use of insulin Orders: Comprehensive Metabolic Panel; Future Psoriatic arthritis (Multi) Orders: Comprehensive Metabolic Panel; Future TSH with reflex to Free T4 if abnormal; Future Chronic atrial fibrillation, unspecified (Multi) Orders: Comprehensive Metabolic Panel; Future TSH with reflex to Free T4 if abnormal; Future Special screening for malignant neoplasm of prostate Orders: Prostate Specific Antigen, Screen; Future Advanced Care Planing discussed, diagnosis , treatment and prognosis discussed with pt,pt has capacity to make own decision, pt has a living will, to bring a copy for the chart. Diabetes Mellitus/IFG addressed as follow: [address] HGA1C GOAL LESS THAN 7 LOSE WT EXERCISE DAILY HTN addressed as follow: MONITOR BP GOAL BP LOWER THAN 130/80 LOW SALT EXERCISE DAILY Arthritis stable Afib stable Up to date with pneumonia and shingles shots Fu 6 mo bw documented in this [facility] Work Phone: [phone] [id number] Miscellaneous Notes* Assessment & Plan Note - Neymar Xavier MD - 08/01/2024 11:30 AM ESTAssociated Problem(s): Benign essential hypertension Orders: Comprehensive Metabolic Panel; Future * Assessment & Plan Note - Neymar Xavier MD - 08/01/2024 11:30 AM EST Associated Problem(s): Type 2 diabetes mellitus with hyperglycemia, without long-term current use of insulin Orders: Comprehensive Metabolic Panel; Future Hemoglobin A1C; Future * Assessment & Plan Note - Neymar Xavier MD - 08/01/2024 11:30 AM EST Associated Problem(s): Hypercholesterolemia Orders: Comprehensive Metabolic Panel; Future TSH with reflex to Free T4 if abnormal; Future Lipid Panel; Future * Assessment & Plan Note - Neymar Xavier MD - 08/01/2024 11:30 AM EST Associated Problem(s): Hypertriglyceridemia Orders: Comprehensive Metabolic Panel; Future Lipid Panel; Future * Assessment & Plan Note - Neymar Xavier MD - 08/01/2024 11:30 AM EST Associated Problem(s): Type 2 diabetes mellitus with diabetic cataract, without long-term current use of insulin Orders: Comprehensive Metabolic Panel; Future * Assessment & Plan Note - Neymar Xavier MD - 08/01/2024 11:30 AM EST Associated Problem(s): Psoriatic arthritis (Multi) Orders: Comprehensive Metabolic Panel; Future TSH with reflex to Free T4 if abnormal; Future * Assessment & Plan Note - Neymar Xavier MD - 08/01/2024 11:30 AM EST Associated Problem(s): Chronic atrial fibrillation, unspecified (Multi) Orders: Comprehensive Metabolic Panel; Future TSH with reflex to Free T4 if abnormal; Future documented in this [facility] Work Phone: 1(141) 922-176108-29-2024 History of Present illness Narrative* Kayla Muse PA-C - 02/25/2024 2:20 PM EDT Subjective Patient ID: Hattie Valderrama is a 78 y.o. male who presents for Follow-up (PT NEEDS CLEARANCE FOR EYEPROCEDURE ) HPI Patient presents today as Dr Tavallaee patient for Pre op clearance for Brink muscle repair mar 04, 2024 Labs - Feb 25, 2024 - CBC, CMP, PT/INR - With in reason EKG - AFIB with rapid ventricular response, RBBB - stable - known history CXR - pending Pt is on coumadin and states her eye dr mentioned stopping the asprin 7 days prior and the coumadin5 days prior to his surgery date Pt plans to call the coumadin clinic to confirm this with their guidelines and follow up PT/INR check as well Pt states he has previously had ortho surgeries and cataract surgeries and down well with anesthesia with no concerns PT denies CP, SOB, fatigue, fever or other unexplainable symptoms that he feels would negative affect the outcome of the surgery Med check DM - stable 6.7 January 11, 2024 - on meds Hyperchol - on meds AFIB - on coumadin Preventative PSA Colon Fall - NEG JAN 2024 PHQ2 - NEG JAN 2024 Patient Active Problem List Diagnosis Benign essential hypertension Chronic atrial fibrillation, unspecified (Multi) Diverticulosis Type 2 diabetes mellitus with hyperglycemia, without long-term current use of insulin (Multi) History of colon polyps Hypercholesterolemia Hypertriglyceridemia Low back pain radiating to right leg Muscle cramp Osteoarthritis, generalized Psoriatic arthritis (Multi) Review of Systems Constitutional: Negative for chills, fatigue and fever. HENT: Negative for congestion, rhinorrhea, sinus pain, sore throat and tinnitus. Eyes: Negative for discharge, redness and visual disturbance. Respiratory: Negative for cough, chest tightness, shortness of breath and wheezing. Cardiovascular: Negative for chest pain, palpitations and leg swelling. Gastrointestinal: Negative for abdominal pain, constipation, diarrhea, nausea and vomiting. Endocrine: Negative for cold intolerance and heat intolerance. Genitourinary: Negative for flank pain, frequency and urgency. Musculoskeletal: Negative for back pain, gait problem and neck pain. Skin: Negative for rash and wound. Neurological: Negative for dizziness, tremors, syncope, numbness and headaches. Hematological: Does not bruise/bleed easily. Psychiatric/Behavioral: Negative for confusion, sleep disturbance and suicidal ideas. Past Medical History: Diagnosis Date Other specified health status No pertinent past medical history Past Surgical History: Procedure Laterality Date COLONOSCOPY 10/10/2021 repeat 5 years TOTAL HIP ARTHROPLASTY TOTAL KNEE ARTHROPLASTY Family History Problem Relation Name Age of Onset Kidney cancer Mother No Known Problems Father Hypertension Brother Lung cancer Brother Heart attack Brother Diabetes type II Brother Social History Tobacco Use Smoking status: Former Types: Pipe Passive exposure: Past Smokeless tobacco: Never Vaping Use Vaping status: Never Used Substance Use Topics Alcohol use: Not Currently Drug use: Never Allergies Allergen Reactions Adalimumab Rash Current Outpatient Medications Medication Sig Dispense Refill aspirin 81 mg EC tablet Take 1 tablet (81 mg) by mouth once daily. atorvastatin (Lipitor) 40 mg tablet Take 1 tablet (40 mg) by mouth once daily at bedtime. 90 tablet3 blood sugar diagnostic (Accu-Chek SmartView Test Strip) strip TEST 3 TIMES DAILY. 150 strip 11 erythromycin (Romycin) 5 mg/gram (0.5 %) ophthalmic ointment Apply 7 cm to both eyes 1 time. glimepiride (Amaryl) 2 mg tablet Take 1 tablet (2 mg) by mouth once daily. 90 tablet 3 losartan (Cozaar) 50 mg tablet Take 1 tablet (50 mg) by mouth 2 times a day. 180 tablet 3 magnesium oxide (Mag-Ox) 400 mg (241.3 mg magnesium) tablet Take 1 tablet (400 mg) by mouth once daily. 90 tablet 3 metFORMIN (Glucophage) 500 mg tablet Take 2 tablets (1,000 mg) by mouth 2 times a day. 360 tablet 3 metoprolol succinate XL (Toprol-XL) 100 mg 24 hr tablet Take 1 tablet (100 mg) by mouth 2 times a day. 180 tablet 3 multivit-min/ferrous fumarate (MULTI VITAMIN ORAL) Take 1 tablet by mouth in the morning. warfarin (Coumadin) 2 mg tablet Take 1 tablet (2 mg) by mouth once daily at bedtime. [facility] No current facility-administered medications for this visit. Objective BP 130/84 Pulse 98 Ht 1.829 m (6') Wt 101 kg (222 lb) SpO2 96% BMI 30.11 kg/m Physical Exam Vitals reviewed. Constitutional: Appearance: Normal appearance. He is obese. HENT: Head: Normocephalic. Right Ear: External ear normal. Left Ear: External ear normal. Nose: Nose normal. No congestion or rhinorrhea. Mouth/Throat: Mouth: Mucous membranes are moist. Eyes: Extraocular Movements: Extraocular movements intact. Conjunctiva/sclera: Conjunctivae normal. Pupils: Pupils are equal, round, and reactive to light. Cardiovascular: Rate and Rhythm: Normal rate. Pulses: Normal pulses. Comments: Known AFIB Pulmonary: Effort: Pulmonary effort is normal. Breath sounds: Normal breath sounds. Abdominal: General: Bowel sounds are normal. Palpations: Abdomen is soft. Tenderness: There is no abdominal tenderness. There is no right CVA tenderness or left CVA tenderness. Musculoskeletal: General: No tenderness. Normal range of motion. Cervical back: Normal range of motion and neck supple. No tenderness. Skin: General: Skin is warm and dry. Neurological: General: No focal deficit present. Mental Status: He is alert and oriented to person, place, and time. Psychiatric: Mood and Affect: Mood normal. Behavior: Behavior normal. Testing Component Latest Ref [facility] 02/25/2024 WBC 4.4 - 11.3 x10*3/uL 8.1 nRBC 0.0 - 0.0 /100 WBCs 0.0 RBC 4.50 - 5.90 x10*6/uL 4.42 (L) HEMOGLOBIN 13.5 - 17.5 g/dL 13.5 HEMATOCRIT 41.0 - 52.0 % 42.7 MCV 80 - 100 fL 97 MCH 26.0 - 34.0 pg 30.5 MCHC 32.0 - 36.0 g/dL 31.6 (L) RED CELL DISTRIBUTION WIDTH 11.5 - 14.5 % 13.8 Platelets 150 - 450 x10*3/uL 288 Neutrophils % 40.0 - 80.0 % 71.9 Immature Granulocytes %, Automated 0.0 - 0.9 % 0.2 Lymphocytes % 13.0 - 44.0 % 19.5 Monocytes % 2.0 - 10.0 % 7.0 Eosinophils % 0.0 - 6.0 % 0.9 Basophils % 0.0 - 2.0 % 0.5 Neutrophils Absolute 1.60 - 5.50 x10*3/uL 5.81 (H) Immature Granulocytes Absolute, Automated 0.00 - 0.50 x10*3/uL 0.02 Lymphocytes Absolute 0.80 - 3.00 x10*3/uL 1.58 Monocytes Absolute 0.05 - 0.80 x10*3/uL 0.57 Eosinophils Absolute 0.00 - 0.40 x10*3/uL 0.07 Basophils Absolute 0.00 - 0.10 x10*3/uL 0.04 GLUCOSE 74 - 99 mg/dL 139 (H) SODIUM 136 - 145 mmol/L 138 POTASSIUM 3.5 - 5.3 mmol/L 4.6 CHLORIDE 98 - 107 mmol/L 103 Bicarbonate 21 - 32 mmol/L 28 Anion Gap 10 - 20 mmol/L 12 Blood Urea Nitrogen 6 - 23 mg/dL 15 Creatinine 0.50 - 1.30 mg/dL 0.96 EGFR >60 mL/min/1.73m*2 81 Calcium 8.6 - 10.3 mg/dL 9.6 Albumin 3.4 - 5.0 g/dL 4.5 Alkaline Phosphatase 33 - 136 U/L 59 Total Protein 6.4 - 8.2 g/dL 7.3 AST 9 - 39 U/L 18 Bilirubin Total 0.0 - 1.2 mg/dL 1.2 ALT 10 - 52 U/L 20 Protime 9.8 - 12.8 seconds 26.8 (H) INR 0.9 - 1.1 2.3 (H) CXR - pending Impression MDM 1) COMPLEXITY: MORE THAN 1 STABLE CHRONIC CONDITION ADDRESSED 2)DATA: TESTS INTERPRETED AND OR ORDERED, TOOK INDEPENDENT HISTORY OR RECORDS REVIEWED 3)RISK: MODERATE RISK DUE TO NATURE OF MEDICAL CONDITIONS/COMORBIDITY OR MEDICATIONS ORDERED OR SURGICAL OR PROCEDURE REFERRAL, . Reviewed labs and Testing on file Patient to follow diet low in cholesterol, fat, and sodium. Patient is advised to increase Exercise. Patient is recommended to lose weight. Reviewed Meds and discussed common side effects Continue as directed Patient is strongly advised to be compliant with recommendations. Return to Clinic sooner if needed. Patient denies further questions/concerns at this time AT THIS TIME GIVEN PATIENTS HISTORY, ROS, PE AND INTERPRETATION OF TESTING, I SEE NO REASON OR CONTRAINDICATIONS FOR THE PLANED SURGERY. PENDING CXR IS WITH IN REASON Assessment/Plan Problem List Items Addressed This Visit ICD-10-CM Benign essential hypertension I10 Chronic atrial fibrillation, unspecified (Multi) I48.20 Type 2 diabetes mellitus with hyperglycemia, without long-term current use of insulin (Multi) E11.65 Relevant Orders Comprehensive metabolic panel Hemoglobin A1C Other Visit Diagnoses Codes Pre-operative clearance - Primary Z01.818 Relevant Orders ECG 12 Lead (Completed) FU as before in nov with MMT with labs and med check [facility] Phone: 1(732) 722-926507-22-2024 History of Present illness Narrative* Neymar Xavier MD - 01/18/2024 8:15 AM EDT Subjective Patient ID: Hattie Valderrama is a 78 y.o. male who presents for Follow-up (4 mo fu lab). Here for fu with labs feels fine Review of Systems Constitutional: Negative. Negative for chills and fever. HENT: Negative. Negative for congestion. Eyes: Negative. Negative for discharge. Respiratory: Negative. Negative for cough, shortness of breath and wheezing. Cardiovascular: Negative. Negative for chest pain, palpitations and leg swelling. Gastrointestinal: Negative. Negative for abdominal distention, abdominal pain, constipation, diarrhea, nausea and vomiting. Endocrine: Negative. Genitourinary: Negative. Negative for dysuria and urgency. Musculoskeletal: Negative. Negative for back pain, joint swelling and neck stiffness. Skin: Negative. Negative for rash. Allergic/Immunologic: Negative. Negative for immunocompromised state. Neurological: Negative. Negative for light-headedness, numbness and headaches. Hematological: Negative. Negative for adenopathy. Psychiatric/Behavioral: Negative. Negative for agitation, behavioral problems and confusion. All other systems reviewed and are negative. Objective Physical Exam Vitals reviewed. Constitutional: General: He is not in acute distress. Appearance: Normal appearance. HENT: Head: Normocephalic and atraumatic. Nose: Nose normal. Eyes: Conjunctiva/sclera: Conjunctivae normal. Pupils: Pupils are equal, round, and reactive to light. Neck: Vascular: No carotid bruit. Cardiovascular: Rate and Rhythm: Normal rate and regular rhythm. Pulses: Normal pulses. Heart sounds: No gallop. Pulmonary: Effort: Pulmonary effort is normal. No respiratory distress. Breath sounds: Normal breath sounds. No wheezing. Abdominal: General: Bowel sounds are normal. Palpations: Abdomen is soft. Tenderness: There is no abdominal tenderness. Musculoskeletal: General: Normal range of motion. Cervical back: Normal range of motion. No rigidity. Lymphadenopathy: Cervical: No cervical adenopathy. Skin: General: Skin is warm. Findings: No rash. Neurological: General: No focal deficit present. Mental Status: He is alert and oriented to person, place, and time. Psychiatric: Mood and Affect: Mood normal. Behavior: Behavior normal. BP 139/73 (BP Location: Right arm, Patient Position: Sitting) Pulse 84 Ht 1.829 m (6') Wt 102kg (224 lb) BMI 30.38 kg/m Hemoglobin A1C Date/Time Value Ref Range Status 01/11/2024 08:42 AM 6.7 (H) see below % Final Assessment/Plan Problem List Items Addressed This Visit Benign essential hypertension - Primary Relevant Orders Comprehensive Metabolic Panel Chronic atrial fibrillation, unspecified (Multi) Relevant Medications warfarin (Coumadin) 2 mg tablet Other Relevant Orders Comprehensive Metabolic Panel Type 2 diabetes mellitus with hyperglycemia, without long-term current use of insulin (Multi) Relevant Medications metFORMIN (Glucophage) 500 mg tablet glimepiride (Amaryl) 2 mg tablet Other Relevant Orders Comprehensive Metabolic Panel Hemoglobin A1C Psoriatic arthritis (Multi) Relevant Orders Comprehensive Metabolic Panel Other Visit Diagnoses Type 2 diabetes mellitus without complication, without long-term current use of insulin (Multi) Relevant Medications glimepiride (Amaryl) 2 mg tablet Other Relevant Orders Comprehensive Metabolic Panel Type 2 diabetes mellitus with diabetic cataract, without long-term current use of insulin (Multi) Relevant Orders Comprehensive Metabolic Panel HTN addressed as follow: MONITOR BP GOAL BP LOWER THAN 130/80 LOW SALT EXERCISE DAILY Diabetes Mellitus/IFG addressed as follow: [address] HGA1C GOAL LESS THAN 7 LOSE WT EXERCISE DAILY Labs reviewed with pt [place] 4 mo bw [facility] Work Phone: [phone]) 789-290303-20-2024 History of Present illness Narrative* Neymar Xavier MD - 09/16/2023 9:30 AM EDT Subjective Reason for Visit: Hattie Valderrama is an 78 y.o. male here for a Medicare Wellness visit. Past Medical, Surgical, and Family History reviewed and updated in chart. Reviewed all medications by prescribing practitioner or clinical pharmacist (such as prescriptions,OTCs, herbal therapies and supplements) and documented in the medical record. FEELS FINE, NO COMPLANT WELLNESS EXAM Patient Care Team: Neymar Xavier MD as PCP - General Neymar Xavier MD as PCP - [employer] PCP Review of Systems Constitutional: Negative. Negative for chills and fever. HENT: Negative. Negative for congestion. Eyes: Negative. Negative for discharge. Respiratory: Negative. Negative for cough, shortness of breath and wheezing. Cardiovascular: Negative. Negative for chest pain, palpitations and leg swelling. Gastrointestinal: Negative. Negative for abdominal distention, abdominal pain, constipation, diarrhea, nausea and vomiting. Endocrine: Negative. Genitourinary: Negative. Negative for dysuria and urgency. Musculoskeletal: Negative. Negative for back pain, joint swelling and neck stiffness. Skin: Negative. Negative for rash. Allergic/Immunologic: Negative. Negative for immunocompromised state. Neurological: Negative. Negative for light-headedness, numbness and headaches. Hematological: Negative. Negative for adenopathy. Psychiatric/Behavioral: Negative. Negative for agitation, behavioral problems and confusion. All other systems reviewed and are negative. Objective Vitals: BP 115/70 (BP Location: Right arm, Patient Position: Sitting) Pulse 82 Ht 1.829 m (6') Wt 103kg (226 lb) BMI 30.65 kg/m Physical Exam Vitals reviewed. Constitutional: General: He is not in acute distress. Appearance: Normal appearance. HENT: Head: Normocephalic and atraumatic. Nose: Nose normal. Eyes: Conjunctiva/sclera: Conjunctivae normal. Pupils: Pupils are equal, round, and reactive to light. Neck: Vascular: No carotid bruit. Cardiovascular: Rate and Rhythm: Normal rate and regular rhythm. Pulses: Normal pulses. Heart sounds: No gallop. Pulmonary: Effort: Pulmonary effort is normal. No respiratory distress. Breath sounds: Normal breath sounds. No wheezing. Abdominal: General: Bowel sounds are normal. Palpations: Abdomen is soft. Tenderness: There is no abdominal tenderness. Musculoskeletal: General: Normal range of motion. Cervical back: Normal range of motion. No rigidity. Lymphadenopathy: Cervical: No cervical adenopathy. Skin: General: Skin is warm. Findings: No rash. Neurological: General: No focal deficit present. Mental Status: He is alert and oriented to person, place, and time. Psychiatric: Mood and Affect: Mood normal. Behavior: Behavior normal. Assessment/Plan Problem List Items Addressed This Visit Benign essential hypertension Relevant Orders Comprehensive Metabolic Panel Chronic atrial fibrillation, unspecified (CMS/HCC) Relevant Orders Comprehensive Metabolic Panel Type 2 diabetes mellitus with hyperglycemia, without long-term current use of insulin ([facility]) Relevant Medications blood sugar diagnostic (Accu-Chek SmartView Test Strip) strip Other Relevant Orders Comprehensive Metabolic Panel Hypercholesterolemia Relevant Orders Comprehensive Metabolic Panel Lipid Panel Hypertriglyceridemia Relevant Orders Comprehensive Metabolic Panel Lipid Panel Other Visit Diagnoses Routine general medical examination at health care facility - Primary Relevant Orders Comprehensive Metabolic Panel Type 2 diabetes mellitus without complication, without long-term current use of insulin ([facility]) Relevant Medications blood sugar diagnostic (Accu-Chek SmartView Test Strip) strip Other Relevant Orders Comprehensive Metabolic Panel Hemoglobin A1C Special screening for malignant neoplasm of prostate Relevant Orders Prostate Specific Antigen, Screen Advanced Care Planing discussed, diagnosis , treatment and prognosis discussed with pt,pt has capacity to make own decision, pt has a living will, to bring a copy for the chart. MONITOR BP GOAL BP LOWER THAN 130/80 LOW SALT EXERCISE DAILY [address] HGA1C GOAL LESS THAN 7 LOSE WT EXERCISE DAILY Labs reviewed with pt UP TO DATE WITH PNEUMONIA AND SHINGLES SHOTS MDM 1) COMPLEXITY: MORE THAN 1 STABLE CHRONIC CONDITION ADDRESSED 2)DATA: TESTS INTERPRETED AND OR ORDERED, TOOK INDEPENDENT HISTORY OR RECORDS REVIEWED 3)RISK: MODERATE RISK DUE TO NATURE OF MEDICAL CONDITIONS/COMORBIDITY OR MEDICATIONS ORDERED OR SURGICAL OR PROCEDURE REFERRAL, . [facility] Work Phone: 1(228) 344-422511-20-2023 History of Present illness Narrative* Neymar Xavier MD - 05/18/2023 9:45 AM EST Subjective Patient ID: Hattie Valderrama is a 78 y.o. male who presents for Follow-up (4 MONTH F/U WITH LABS. MAGNESIUM OXIDE ON BACKORDER WITH [facility]IL ORDER [facility]ARM[facility] - HAS BEEN OUT OF MED SINCE LAST WEEK. ). HERE FOR FU WITH LABS FEELS FINE MAG OX ON BACK ORDER Review of Systems Constitutional: Negative. Negative for chills and fever. HENT: Negative. Negative for congestion. Eyes: Negative. Negative for discharge. Respiratory: Negative. Negative for cough, shortness of breath and wheezing. Cardiovascular: Negative. Negative for chest pain, palpitations and leg swelling. Gastrointestinal: Negative. Negative for abdominal distention, abdominal pain, constipation, diarrhea, nausea and vomiting. Endocrine: Negative. Genitourinary: Negative. Negative for dysuria and urgency. Musculoskeletal: Negative. Negative for back pain, joint swelling and neck stiffness. Skin: Negative. Negative for rash. Allergic/Immunologic: Negative. Negative for immunocompromised state. Neurological: Negative. Negative for light-headedness, numbness and headaches. Hematological: Negative. Negative for adenopathy. Psychiatric/Behavioral: Negative. Negative for agitation, behavioral problems and confusion. All other systems reviewed and are negative. Objective Physical Exam Vitals reviewed. Constitutional: General: He is not in acute distress. Appearance: Normal appearance. HENT: Head: Normocephalic and atraumatic. Nose: Nose normal. Eyes: Conjunctiva/sclera: Conjunctivae normal. Pupils: Pupils are equal, round, and reactive to light. Neck: Vascular: No carotid bruit. Cardiovascular: Rate and Rhythm: Normal rate and regular rhythm. Pulses: Normal pulses. Heart sounds: No gallop. Pulmonary: Effort: Pulmonary effort is normal. No respiratory distress. Breath sounds: Normal breath sounds. No wheezing. Abdominal: General: Bowel sounds are normal. Palpations: Abdomen is soft. Tenderness: There is no abdominal tenderness. Musculoskeletal: General: Normal range of motion. Cervical back: Normal range of motion. No rigidity. Lymphadenopathy: Cervical: No cervical adenopathy. Skin: General: Skin is warm. Findings: No rash. Neurological: General: No focal deficit present. Mental Status: He is alert and oriented to person, place, and time. Psychiatric: Mood and Affect: Mood normal. Behavior: Behavior normal. BP 110/68 Pulse 68 Ht 1.829 m (6') Wt 106 kg (233 lb) BMI 31.60 kg/m Hemoglobin A1C Date/Time Value Ref Range Status 04/29/2023 09:26 AM 7.5 (H) see below % Final Assessment/Plan Problem List Items Addressed This Visit Benign essential hypertension - Primary Relevant Orders CBC and Auto Differential Chronic atrial fibrillation, unspecified (CMS/HCC) Relevant Orders CBC and Auto Differential Type 2 diabetes mellitus with hyperglycemia, without long-term current use of insulin (CMS/HCC) Relevant Orders CBC and Auto Differential Hemoglobin A1C Hypercholesterolemia Relevant Orders CBC and Auto Differential Muscle cramp Relevant Medications magnesium oxide (Mag-Ox) 400 mg (241.3 mg magnesium) tablet Other Relevant Orders CBC and Auto Differential Other Visit Diagnoses Anemia, unspecified type Relevant Orders CBC and Auto Differential Vitamin B12 Methylmalonic Acid Folate Iron and TIBC Ferritin Comprehensive Metabolic Panel [address] HGA1C GOAL LESS THAN 7 LOSE WT EXERCISE DAILY MONITOR BP GOAL BP LOWER THAN 130/80 LOW SALT EXERCISE DAILY Labs reviewed with pt MDM 1) COMPLEXITY: MORE THAN 1 STABLE CHRONIC CONDITION ADDRESSED 2)DATA: TESTS INTERPRETED AND OR ORDERED, TOOK INDEPENDENT HISTORY OR RECORDS REVIEWED 3)RISK: MODERATE RISK DUE TO NATURE OF MEDICAL CONDITIONS/COMORBIDITY OR MEDICATIONS ORDERED OR SURGICAL OR PROCEDURE REFERRAL, . documented in this [facility] Work Phone: 1([phone]) 606-941910-10-2023 History of Present illness Narrative* Neymar Xavier MD - 04/07/2023 12:45 PM EDT Subjective Patient ID: Hattie Valderrama is a 78 y.o. male who presents for Follow-up (Pt co left hand swelling). Here for left hand swelling Bp at home very good Left hand swelling mild pain specially with moving fingers, no fall no trauma Review of Systems Constitutional: Negative. Negative for chills and fever. HENT: Negative. Negative for congestion. Eyes: Negative. Negative for discharge. Respiratory: Negative. Negative for cough, shortness of breath and wheezing. Cardiovascular: Negative. Negative for chest pain, palpitations and leg swelling. Gastrointestinal: Negative. Negative for abdominal distention, abdominal pain, constipation, diarrhea, nausea and vomiting. Endocrine: Negative. Genitourinary: Negative. Negative for dysuria and urgency. Musculoskeletal: Negative. Negative for back pain, joint swelling and neck stiffness. Skin: Negative. Negative for rash. Allergic/Immunologic: Negative. Negative for immunocompromised state. Neurological: Negative. Negative for light-headedness, numbness and headaches. Hematological: Negative. Negative for adenopathy. Psychiatric/Behavioral: Negative. Negative for agitation, behavioral problems and confusion. All other systems reviewed and are negative. Objective Physical Exam Vitals reviewed. Constitutional: General: He is not in acute distress. Appearance: Normal appearance. HENT: Head: Normocephalic and atraumatic. Nose: Nose normal. Eyes: Conjunctiva/sclera: Conjunctivae normal. Pupils: Pupils are equal, round, and reactive to light. Neck: Vascular: No carotid bruit. Cardiovascular: Rate and Rhythm: Normal rate and regular rhythm. Pulses: Normal pulses. Heart sounds: No gallop. Pulmonary: Effort: Pulmonary effort is normal. No respiratory distress. Breath sounds: Normal breath sounds. No wheezing. Abdominal: General: Bowel sounds are normal. Palpations: Abdomen is soft. Tenderness: There is no abdominal tenderness. Musculoskeletal: General: Swelling (tenderness mild erythema left hand) present. Normal range of motion. Cervical back: Normal range of motion. No rigidity. Lymphadenopathy: Cervical: No cervical adenopathy. Skin: General: Skin is warm. Findings: No rash. Neurological: General: No focal deficit present. Mental Status: He is alert and oriented to person, place, and time. Psychiatric: Mood and Affect: Mood normal. Behavior: Behavior normal. BP (!) 136/95 (BP Location: Right arm, Patient Position: Sitting) Pulse 77 Ht 1.829 m (6') Wt104 kg (230 lb) BMI 31.19 kg/m Hemoglobin A1C Date/Time Value Ref Range Status 01/06/2023 08:29 AM 7.0 (A) % Final Comment: Diagnosis of Diabetes-Adults Non-Diabetic: < or = 5.6% Increased risk for developing diabetes: 5.7-6.4% Diagnostic of diabetes: > or = 6.5% . Monitoring of Diabetes Age (y) Therapeutic Goal (%) Adults: >18 <7.0 Pediatrics: 13-18 <7.5 7-12 <8.0 0- 6 7.5-8.5 [employer]. Diabetes Care 33(S1), Jun 2009. Assessment/Plan Problem List Items Addressed This Visit Type 2 diabetes mellitus with hyperglycemia, without long-term current use of insulin ([facility]) Other Visit Diagnoses Cellulitis, unspecified cellulitis site - Primary Relevant Medications amoxicillin-pot clavulanate (Augmentin) 875-125 mg tablet predniSONE (Deltasone) 10 mg tablet Other Relevant Orders Uric Acid CBC and Auto Differential Sedimentation Rate Tenosynovitis of hand Relevant Medications dexAMETHasone (Decadron) injection 4 mg (Start on 04/07/2023 1:15 PM) predniSONE (Deltasone) 10 mg tablet Other Relevant Orders Uric Acid CBC and Auto Differential Sedimentation Rate Localized swelling on left hand Relevant Medications predniSONE (Deltasone) 10 mg tablet Other Relevant Orders Vascular US upper extremity venous duplex left Uric Acid CBC and Auto Differential Sedimentation Rate Doppler today Fu 1 week left hand check Monitor bs since take prednisone To call coumadin clinic for coumadin adjustment MDM 1) COMPLEXITY: 1 UNDIAGNOSED NEW PROBLEM WITH UNCERTAIN PROGNOSIS 2)DATA: TESTS INTERPRETED AND OR ORDERED, TOOK INDEPENDENT HISTORY OR RECORDS REVIEWED 3)RISK: MODERATE RISK DUE TO NATURE OF MEDICAL CONDITIONS/COMORBIDITY OR MEDICATIONS ORDERED OR SURGICAL OR PROCEDURE REFERRAL, . documented in this [facility] Work Phone: [phone]) 419-367507-17-2023 History of Present illness Narrative* Neymar Xavier MD - 01/12/2023 10:45 AM EDT Subjective Patient ID: Hattie Valderrama is a 77 y.o. male who presents for Follow-up (4 mo fu labs). FEELS FINE, NO COMPLANT Review of Systems Constitutional: Negative. Negative for chills and fever. HENT: Negative. Negative for congestion. Eyes: Negative. Negative for discharge. Respiratory: Negative. Negative for cough, shortness of breath and wheezing. Cardiovascular: Negative. Negative for chest pain, palpitations and leg swelling. Gastrointestinal: Negative. Negative for abdominal distention, abdominal pain, constipation, diarrhea, nausea and vomiting. Endocrine: Negative. Genitourinary: Negative. Negative for dysuria and urgency. Musculoskeletal: Negative. Negative for back pain, joint swelling and neck stiffness. Skin: Negative. Negative for rash. Allergic/Immunologic: Negative. Negative for immunocompromised state. Neurological: Negative. Negative for light-headedness, numbness and headaches. Hematological: Negative. Negative for adenopathy. Psychiatric/Behavioral: Negative. Negative for agitation, behavioral problems and confusion. All other systems reviewed and are negative. Objective Physical Exam Vitals reviewed. Constitutional: General: He is not in acute distress. Appearance: Normal appearance. HENT: Head: Normocephalic and atraumatic. Nose: Nose normal. Eyes: Conjunctiva/sclera: Conjunctivae normal. Pupils: Pupils are equal, round, and reactive to light. Neck: Vascular: No carotid bruit. Cardiovascular: Rate and Rhythm: Normal rate. Rhythm irregular. Pulses: Normal pulses. Heart sounds: No gallop. Pulmonary: Effort: Pulmonary effort is normal. No respiratory distress. Breath sounds: Normal breath sounds. No wheezing. Abdominal: General: Bowel sounds are normal. Palpations: Abdomen is soft. Tenderness: There is no abdominal tenderness. Musculoskeletal: General: Normal range of motion. Cervical back: Normal range of motion. No rigidity. Lymphadenopathy: Cervical: No cervical adenopathy. Skin: General: Skin is warm. Findings: No rash. Neurological: General: No focal deficit present. Mental Status: He is alert and oriented to person, place, and time. Psychiatric: Mood and Affect: Mood normal. Behavior: Behavior normal. BP 128/82 (BP Location: Right arm, Patient Position: Sitting) Pulse 84 Ht 1.829 m (6') Wt 107kg (236 lb) BMI 32.01 kg/m Hemoglobin A1C Date/Time Value Ref Range Status 01/06/2023 08:29 AM 7.0 (A) % Final Comment: Diagnosis of Diabetes-Adults Non-Diabetic: < or = 5.6% Increased risk for developing diabetes: 5.7-6.4% Diagnostic of diabetes: > or = 6.5% . Monitoring of Diabetes Age (y) Therapeutic Goal (%) Adults: >18 <7.0 Pediatrics: 13-18 <7.5 7-12 <8.0 0- 6 7.5-8.5 [employer]. Diabetes Care 33(S1), Jun 2009. Assessment/Plan Problem List Items Addressed This Visit Benign essential hypertension Relevant Orders Comprehensive Metabolic Panel Chronic atrial fibrillation, unspecified ([facility]/HCC) Relevant Orders Comprehensive Metabolic Panel DM2 (diabetes mellitus, type 2) ([facility]) Relevant Orders Comprehensive Metabolic Panel Hemoglobin A1C Hypercholesterolemia Relevant Orders Comprehensive Metabolic Panel Hypertriglyceridemia Relevant Orders Comprehensive Metabolic Panel Psoriatic arthritis ([facility]) Relevant Orders Comprehensive Metabolic Panel Other Visit Diagnoses Healthcare maintenance Relevant Orders Comprehensive Metabolic Panel Labs reviewed with pt MONITOR BP GOAL BP LOWER THAN 130/80 LOW SALT EXERCISE DAILY [address] HGA1C GOAL LESS THAN 7 LOSE WT EXERCISE DAILY Will get her pneumonia shot in feb. MDM 1) COMPLEXITY: MORE THAN 1 STABLE CHRONIC CONDITION ADDRESSED 2)DATA: TESTS INTERPRETED AND OR ORDERED, TOOK INDEPENDENT HISTORY OR RECORDS REVIEWED 3)RISK: MODERATE RISK DUE TO NATURE OF MEDICAL CONDITIONS/COMORBIDITY OR MEDICATIONS ORDERED OR SURGICAL OR PROCEDURE REFERRAL, . 4 mo [facility]w [facility]: [phone] 411-755303-15-2023 Evaluation + Plan note* Assessment & Plan Note - Neymar Xavier MD - 09/10/2022 11:28 AM EDTAssociated Problem(s): Chronic atrial fibrillation, unspecified (CMS/HCC) Doing fine and stable with current management, continue same [facility] Work Phone: [phone]) 238-449203-15-2023 Evaluation + Plan note* Assessment & Plan Note - Neymar Xavier MD - 09/10/2022 11:28 AM EDTAssociated Problem(s): DM2 (diabetes mellitus, type 2) (CMS/HCC) [address] HGA1C GOAL LESS THAN 7 LOSE WT EXERCISE DAILY [facility] Work Phone: [phone]) 745-737203-15-2023 Evaluation + Plan note* Assessment & Plan Note - Neymar Xavier MD - 09/10/2022 11:28 AM EDTAssociated Problem(s): Benign essential hypertension MONITOR BP GOAL BP LOWER THAN 130/80 LOW SALT EXERCISE DAILY [facility] Work Phone: [phone]) 939-943503-15-2023 Miscellaneous Notes* Assessment & Plan Note - Neymar Xavier MD - 09/10/2022 11:28 AM EDTAssociated Problem(s): Chronic atrial fibrillation, unspecified (CMS/HCC) Doing fine and stable with current management, continue same * Assessment & Plan Note - Neymar Xavier MD - 09/10/2022 11:28 AM EDT Associated Problem(s): DM2 (diabetes mellitus, type 2) ([facility]) [address] HGA1C GOAL LESS THAN 7 LOSE WT EXERCISE DAILY * Assessment & Plan Note - Neymar Xavier MD - 09/10/2022 11:28 AM EDT Associated Problem(s): Benign essential hypertension MONITOR BP GOAL BP LOWER THAN 130/80 LOW SALT EXERCISE DAILY documented in this [facility] Work Phone: [phone] 217-702103-15-2023 History of Present illness Narrative* Neymar Xavier MD - 09/10/2022 11:15 AM EDT Subjective Reason for Visit: Hattie Valderrama is an 77 y.o. male here for a Medicare Wellness visit. Past Medical, Surgical, and Family History reviewed and updated in chart. Reviewed all medications by prescribing practitioner or clinical pharmacist (such as prescriptions,OTCs, herbal therapies and supplements) and documented in the medical record. FEELS FINE, NO COMPLANT WELLNESS EXAM Patient Self Assessment of Health Status Patient Self Assessment: Fair Nutrition and Exercise Current Diet: Unhealthy Diet Exercise Frequency: No Exercise Functional Ability/Level of Safety Cognitive Impairment Observed: No cognitive impairment observed Cognitive Impairment Reported: No cognitive impairment reported by patient or family Home Safety Risk Factors: None Patient Care Team: Neymar Xavier MD as PCP - General Neymar Xavier MD as PCP - [employer] PCP Review of Systems Constitutional: Negative. Negative for chills and fever. HENT: Negative. Negative for congestion. Eyes: Negative. Negative for discharge. Respiratory: Negative. Negative for cough, shortness of breath and wheezing. Cardiovascular: Negative. Negative for chest pain, palpitations and leg swelling. Gastrointestinal: Negative. Negative for abdominal distention, abdominal pain, constipation, diarrhea, nausea and vomiting. Endocrine: Negative. Genitourinary: Negative. Negative for dysuria and urgency. Musculoskeletal: Negative. Negative for back pain, joint swelling and neck stiffness. Skin: Negative. Negative for rash. Allergic/Immunologic: Negative. Negative for immunocompromised state. Neurological: Negative. Negative for light-headedness, numbness and headaches. Hematological: Negative. Negative for adenopathy. Psychiatric/Behavioral: Negative. Negative for agitation, behavioral problems and confusion. All other systems reviewed and are negative. Objective Vitals: BP 138/84 (BP Location: Left arm, Patient Position: Sitting) Pulse 74 Ht 1.829 m (6') Wt 107 kg (235 lb) BMI 31.87 kg/m Physical Exam Vitals reviewed. Constitutional: General: He is not in acute distress. Appearance: Normal appearance. HENT: Head: Normocephalic and atraumatic. Nose: Nose normal. Eyes: Conjunctiva/sclera: Conjunctivae normal. Pupils: Pupils are equal, round, and reactive to light. Neck: Vascular: No carotid bruit. Cardiovascular: Rate and Rhythm: Normal rate and regular rhythm. Pulses: Normal pulses. Heart sounds: No gallop. Pulmonary: Effort: Pulmonary effort is normal. No respiratory distress. Breath sounds: Normal breath sounds. No wheezing. Abdominal: General: Bowel sounds are normal. Palpations: Abdomen is soft. Tenderness: There is no abdominal tenderness. Musculoskeletal: General: Normal range of motion. Cervical back: Normal range of motion. No rigidity. Lymphadenopathy: Cervical: No cervical adenopathy. Skin: General: Skin is warm. Findings: No rash. Neurological: General: No focal deficit present. Mental Status: He is alert and oriented to person, place, and time. Psychiatric: Mood and Affect: Mood normal. Behavior: Behavior normal. Assessment/Plan Problem List Items Addressed This Visit Circulatory Benign essential hypertension Current Assessment & Plan MONITOR BP GOAL BP LOWER THAN 130/80 LOW SALT EXERCISE DAILY Relevant Orders Follow Up In Primary Care Chronic atrial fibrillation, unspecified (CMS/HCC) Current Assessment & Plan Doing fine and stable with current management, continue same Relevant Orders Follow Up In Primary Care Musculoskeletal Psoriatic arthritis ([facility]) Relevant Orders Follow Up In Primary Care Prostate Specific Antigen, Screen Endocrine/Metabolic DM2 (diabetes mellitus, type 2) ([facility]) - Primary Current Assessment & Plan [address] HGA1C GOAL LESS THAN 7 LOSE WT EXERCISE DAILY Relevant Medications blood sugar diagnostic (Accu-Chek SmartView Test Strip) strip Other Relevant Orders Follow Up In Primary Care Hemoglobin A1C Comprehensive Metabolic Panel Other Hypercholesterolemia Relevant Orders Follow Up In Primary Care Lipid Panel Hypertriglyceridemia Relevant Orders Follow Up In Primary Care Other Visit Diagnoses Healthcare maintenance Relevant Medications diphth,pertus,acell,,tetanus (BoostRIX) 2.5-8-5 Lf-mcg-Lf/0.5mL injection pneumoc 20-viviana conj-dip cr,PF, (Prevnar 20, PF,) 0.5 mL vaccine Other Relevant Orders Follow Up In Primary Care Hepatitis C antibody Special screening for malignant neoplasm of prostate Routine general medical examination at health care facility Advanced Care Planing discussed, diagnosis , treatment and prognosis discussed with pt,pt has capacity to make own decision, pt has a living will, to bring a copy for the chart. MDM 1) COMPLEXITY: MORE THAN 1 STABLE CHRONIC CONDITION ADDRESSED 2)DATA: TESTS INTERPRETED AND OR ORDERED, TOOK INDEPENDENT HISTORY OR RECORDS REVIEWED 3)RISK: MODERATE RISK DUE TO NATURE OF MEDICAL CONDITIONS/COMORBIDITY OR MEDICATIONS ORDERED OR SURGICAL OR PROCEDURE REFERRAL, . documented in this [facility] Work Phone: Consult note Author Kayla Jean [facility] Note Date/Time September 22, 2024 3:2 5pm [facility] Medical Records Department [address] [place] [address] Counseling Note - Pharmacy 09/22/24 1516 MR#: [id number] Acct: [id number] Name: HATTIE VALDERRAMA Misty Rep #:[id number] : 1945 79 From: Kayla Jean PCP: Dr. Neymar Xavier MD Status: ADM IN Location: [place] [address] Pharmacy [place] Med Reconciliation Pharmacy Service has performed discharge medication reconciliation for this patient. The patient's discharge medication list was reviewed for discrepancies and discrepancies were resolved. Medications at Discharge Home Medications atorvastatin 40 mg tablet 40 mg PO QHS CHOLESTEROL 05/20/22 glimepiride 2 mg tablet 2 mg PO DAILY DIABETES 05/20/22 losartan 50 mg tablet 100 mg PO DAILY BLOOD PRESSURE 05/20/22 metformin 500 mg tablet 1,000 mg PO BID DIABETES 05/20/22 metoprolol succinate 100 mg tablet,extended release 24 hr 100 mg PO DAILY BLOOD PRESSURE AND HEART RATE 05/20/22 warfarin 2 mg tablet 4 mg PO SUTUTHSA 05/20/22 warfarin 2 mg tablet 6 mg PO QMWF 05/20/22 guaifenesin 1,200 mg tablet, extended release 12 hr (Mucus Relief ER) 1,200 mg PO BID #10 tabs 09/22/24 levofloxacin 750 mg tablet 750 mg PO DAILY #4 tabs 09/22/24 oseltamivir 30 mg capsule 30 mg PO BID #6 caps 09/22/24 prednisone 20 mg tablet 40 mg (2 x 20 mg) PO DAILY #10 tabs 09/22/24 09/22/24 1516 <Electronically signed by Kayla Jean > Date _ Kayla Jean Cosigner Signature (if applicable): Date CC: ~ Signed [facility] Work Phone: Evaluation note* Diagnosis Type 2 diabetes mellitus without complication, without long-term current use of insulin (CMS/HCC) Psoriatic arthritis (CMS/HCC) Psoriatic arthropathy Chronic atrial fibrillation, unspecified (CMS/HCC) Benign essential hypertension Essential hypertension, benign Hypercholesterolemia Pure hypercholesterolemia Hypertriglyceridemia Pure hyperglyceridemia Healthcare maintenance documented in this encounter [facility] Work Phone: Evaluation note* Diagnosis Cellulitis, unspecified cellulitis site- Primary Tenosynovitis of hand Localized swelling on left hand Type 2 diabetes mellitus with hyperglycemia, without long-term current use of insulin (CMS/HCC) documented in this encounter [facility] Work Phone: Evaluation note* Diagnosis Benign essential hypertension- Primary Essential hypertension, benign Chronic atrial fibrillation, unspecified (CMS/HCC) Type 2 diabetes mellitus with hyperglycemia, without long-term current use of insulin (CMS/HCC) Hypercholesterolemia Pure hypercholesterolemia Anemia, unspecified type Muscle cramp Cramp of limb documented in this encounter [facility] Work Phone: Evaluation note* Diagnosis Localized swelling on left hand Lymphedema, not elsewhere classified documented in this encounter [facility] Work Phone: Evaluation note* Diagnosis Routine general medical examination at health care facility- Primary Routine general medical examination at a health care facility Type 2 diabetes mellitus without complication, without long-term current use of insulin (CMS/HCC) Benign essential hypertension Essential hypertension, benign Type 2 diabetes mellitus with hyperglycemia, without long-term current use of insulin (CMS/HCC) Chronic atrial fibrillation, unspecified (CMS/HCC) Hypercholesterolemia Pure hypercholesterolemia Hypertriglyceridemia Pure hyperglyceridemia Special screening for malignant neoplasm of prostate documented in this encounter [facility] Work Phone: Evaluation note* Diagnosis Type 2 diabetes mellitus without complication, without long-term current use of insulin (Multi)- Primary Psoriatic arthritis (Multi) Psoriatic arthropathy Chronic atrial fibrillation, unspecified (Multi) Benign essential hypertension Essential hypertension, benign Hypercholesterolemia Pure hypercholesterolemia Hypertriglyceridemia Pure hyperglyceridemia Healthcare maintenance Special screening for malignant neoplasm of prostate Routine general medical examination at health care facility Routine general medical examination at a health care facility Benign essential hypertension- Primary Essential hypertension, benign Type 2 diabetes mellitus with hyperglycemia, without long-term current use of insulin (Multi) Chronic atrial fibrillation, unspecified (Multi) Type 2 diabetes mellitus without complication, without long-term current use of insulin (Multi) Psoriatic arthritis (Multi) Psoriatic arthropathy Type 2 diabetes mellitus with diabetic cataract, without long-term current use of insulin (Multi) documented in this encounter [facility] Work Phone: Evaluation note* Diagnosis Type 2 diabetes mellitus without complication, without long-term current use of insulin (CMS/HCC)- Primary Psoriatic arthritis (CMS/HCC) Psoriatic arthropathy Chronic atrial fibrillation, unspecified (CMS/HCC) Benign essential hypertension Essential hypertension, benign Hypercholesterolemia Pure hypercholesterolemia Hypertriglyceridemia Pure hyperglyceridemia Healthcare maintenance Special screening for malignant neoplasm of prostate Routine general medical examination at health care facility Routine general medical examination at a health care facility documented in this encounter [facility] Work Phone: Evaluation note* Diagnosis Type 2 diabetes mellitus without complication, without long-term current use of insulin (Multi)- Primary Psoriatic arthritis (Multi) Psoriatic arthropathy Chronic atrial fibrillation, unspecified (Multi) Benign essential hypertension Essential hypertension, benign Hypercholesterolemia Pure hypercholesterolemia Hypertriglyceridemia Pure hyperglyceridemia Healthcare maintenance Special screening for malignant neoplasm of prostate Routine general medical examination at health care facility Routine general medical examination at a health care facility Pre-operative clearance- Primary Unspecified pre-operative examination Type 2 diabetes mellitus with hyperglycemia, without long-term current use of insulin (Multi) Chronic atrial fibrillation, unspecified (Multi) Benign essential hypertension Essential hypertension, benign documented in this encounter [facility] Work Phone: Evaluation note* Diagnosis Type 2 diabetes mellitus without complication, without long-term current use of insulin (Multi)- Primary Psoriatic arthritis (Multi) Psoriatic arthropathy Chronic atrial fibrillation, unspecified (Multi) Benign essential hypertension Essential hypertension, benign Hypercholesterolemia Pure hypercholesterolemia Hypertriglyceridemia Pure hyperglyceridemia Healthcare maintenance Special screening for malignant neoplasm of prostate [facility]ine [facility] examination [facility] Pre-operative clearance Unspecified pre-operative examination documented in this encounter [facility] Work Phone: Evaluation note* Diagnosis Type 2 diabetes mellitus without complication, without long-term current use of insulin (Multi)- Primary Psoriatic arthritis (Multi) Psoriatic arthropathy Chronic atrial fibrillation, unspecified (Multi) Benign essential hypertension Essential hypertension, benign Hypercholesterolemia Pure hypercholesterolemia Hypertriglyceridemia Pure hyperglyceridemia Healthcare maintenance Special screening for malignant neoplasm of prostate Routine general medical examination at health care facility Routine general medical examination at a health care facility Routine general medical examination at health care facility- Primary Routine general medical examination at a health care facility Benign essential hypertension Essential hypertension, benign Type 2 diabetes mellitus with hyperglycemia, without long-term current use of insulin Hypercholesterolemia Pure hypercholesterolemia Hypertriglyceridemia Pure hyperglyceridemia Type 2 diabetes mellitus with diabetic cataract, without long-term current use of insulin Psoriatic arthritis (Multi) Psoriatic arthropathy Chronic atrial fibrillation, unspecified (Multi) Special screening for malignant neoplasm of prostate documented in this encounter [facility] Work Phone: Evaluation note* Diagnosis Onset Date Resolution Status Admit Date Acute hypoxic respiratory failure acute September 20, 2024 7:56pm Acute metabolic encephalopathy acute September 20, 2024 7:56pm Atrial fibrillation with RVR acute September 20, 2024 7:56pm Influenza A acute September 20, 2 025 7:56pm Multifocal pneumonia acute 2024 7:56pm Overweight (BMI 25.0-29.9) acute September 20, 2024 7:56pm Sepsis acute September 20 7:56pm COPD exacerbation chronic August 282024 7:56pm [facility] Work Phone: Evaluation note* Diagnosis Type 2 diabetes mellitus without complication, without long-term current use of insulin- Primary Psoriatic arthritis (Multi) Psoriatic arthropathy Chronic atrial fibrillation, unspecified (Multi) Benign essential hypertension Essential hypertension, benign Hypercholesterolemia Pure hypercholesterolemia Hypertriglyceridemia Pure hyperglyceridemia Healthcare maintenance Special screening for malignant neoplasm of prostate Routine general medical examination at health care facility Routine general medical examination at a health care facility Routine general medical examination at health care [facility]- Primary Routine general medical examination at [facility] Benign essential hypertension Essential hypertension, benign Type 2 diabetes mellitus with hyperglycemia, without long-term current use of insulin Hypercholesterolemia Pure hypercholesterolemia Hypertriglyceridemia Pure hyperglyceridemia Type 2 diabetes mellitus with diabetic cataract, without long-term current use of insulin Psoriatic arthritis (Multi) Psoriatic arthropathy Chronic atrial fibrillation, unspecified (Multi) Special screening for malignant neoplasm of prostate Pneumonia of left lower lobe due to infectious organism- Primary Type 2 diabetes mellitus with hyperglycemia, without long-term current use of insulin Benign essential hypertension Essential hypertension, benign Abnormal CT scan of lung documented in this encounter [facility] Work Phone: Evaluation note* Diagnosis Type 2 diabetes mellitus without complication, without long-term current use of insulin- Primary Psoriatic arthritis (Multi) Psoriatic arthropathy Chronic atrial fibrillation, unspecified (Multi) Benign essential hypertension Essential hypertension, benign Hypercholesterolemia Pure hypercholesterolemia Hypertriglyceridemia Pure hyperglyceridemia Healthcare maintenance Special screening for malignant neoplasm of prostate Routine general medical examination at health care facility Routine general medical examination at a health care facility Routine general medical examination at health care facility- Primary Routine general medical examination at a [facility] Benign essential hypertension Essential hypertension, benign Type 2 diabetes mellitus with hyperglycemia, without long-term current use of insulin Hypercholesterolemia Pure hypercholesterolemia Hypertriglyceridemia Pure hyperglyceridemia Type 2 diabetes mellitus with diabetic cataract, without long-term current use of insulin Psoriatic arthritis (Multi) Psoriatic arthropathy Chronic atrial fibrillation, unspecified (Multi) Special screening for malignant neoplasm of prostate Abnormal CT scan of lung documented in this encounter [facility] Work Phone: Evaluation note* Diagnosis Type 2 diabetes mellitus without complication, without long-term current use of insulin- Primary Psoriatic arthritis (Multi) Psoriatic arthropathy Chronic atrial fibrillation, unspecified (Multi) Benign essential hypertension Essential hypertension, benign Hypercholesterolemia Pure hypercholesterolemia Hypertriglyceridemia Pure hyperglyceridemia Healthcare maintenance Special screening for malignant neoplasm of prostate Routine general medical examination at [facility] Routine general medical examination at a [facility] Routine general medical examination at [facility]- Primary Routine general medical examination at a [facility] Benign essential hypertension Essential hypertension, benign Type 2 diabetes mellitus with hyperglycemia, without long-term current use of insulin Hypercholesterolemia Pure hypercholesterolemia Hypertriglyceridemia Pure hyperglyceridemia Type 2 diabetes mellitus with diabetic cataract, without long-term current use of insulin Psoriatic arthritis (Multi) Psoriatic arthropathy Chronic atrial fibrillation, unspecified (Multi) Special screening for malignant neoplasm of prostate Benign essential hypertension- Primary Essential hypertension, benign Type 2 diabetes mellitus without complication, without long-term current use of insulin Abnormal CT scan of lung documented in this encounter [facility] Work Phone: Evaluation note* Diagnosis Type 2 diabetes mellitus without complication, without long-term current use of insulin- Primary Psoriatic arthritis (Multi) Psoriatic arthropathy Chronic atrial fibrillation, unspecified (Multi) Benign essential hypertension Essential hypertension, benign Hypercholesterolemia Pure hypercholesterolemia Hypertriglyceridemia Pure hyperglyceridemia Healthcare maintenance Special screening for malignant neoplasm of prostate Routine general medical examination at [facility] Routine general medical examination at a [facility] Routine general medical examination at [facility]- Primary Routine general medical examination at [facility] Benign essential hypertension Essential hypertension, benign Type 2 diabetes mellitus with hyperglycemia, without long-term current use of insulin Hypercholesterolemia Pure hypercholesterolemia Hypertriglyceridemia Pure hyperglyceridemia Type 2 diabetes mellitus with diabetic cataract, without long-term current use of insulin Psoriatic arthritis (Multi) Psoriatic arthropathy Chronic atrial fibrillation, unspecified (Multi) Special screening for malignant neoplasm of prostate Benign essential hypertension- Primary Essential hypertension, benign Type 2 diabetes mellitus with hyperglycemia, without long-term current use of insulin Hypercholesterolemia Pure hypercholesterolemia Hypertriglyceridemia Pure hyperglyceridemia Left thigh pain Pain in soft tissues of limb documented in this encounter [facility] Work Phone: Evaluation note* Diagnosis Type 2 diabetes mellitus without complication, without long-term current use of insulin- Primary Psoriatic arthritis (Multi) Psoriatic arthropathy Chronic atrial fibrillation, unspecified (Multi) Benign essential hypertension Essential hypertension, benign Hypercholesterolemia Pure hypercholesterolemia Hypertriglyceridemia Pure hyperglyceridemia Healthcare maintenance Special screening for malignant neoplasm of prostate Routine general medical examination at health care facility Routine general medical examination at a health care facility [facility]- Primary Routine general medical examination at a [facility] Benign essential hypertension Essential hypertension, benign Type 2 diabetes mellitus with hyperglycemia, without long-term current use of insulin Hypercholesterolemia Pure hypercholesterolemia Hypertriglyceridemia Pure hyperglyceridemia Type 2 diabetes mellitus with diabetic cataract, without long-term current use of insulin Psoriatic arthritis (Multi) Psoriatic arthropathy Chronic atrial fibrillation, unspecified (Multi) Special screening for malignant neoplasm of prostate Left thigh pain Pain in soft tissues of limb documented in this encounter [facility] Work Phone: Evaluation note* Diagnosis Type 2 diabetes mellitus without complication, without long-term current use of insulin- Primary Psoriatic arthritis (Multi) Psoriatic arthropathy Chronic atrial fibrillation, unspecified (Multi) Benign essential hypertension Essential hypertension, benign Hypercholesterolemia Pure hypercholesterolemia Hypertriglyceridemia Pure hyperglyceridemia Healthcare maintenance Special screening for malignant neoplasm of prostate Routine general medical examination at health care facility Routine general medical examination at a health care facility Routine general medical examination at health care facility- Primary Routine general medical examination at a health care facility Benign essential hypertension Essential hypertension, benign Type 2 diabetes mellitus with hyperglycemia, without long-term current use of insulin Hypercholesterolemia Pure hypercholesterolemia Hypertriglyceridemia Pure hyperglyceridemia Type 2 diabetes mellitus with diabetic cataract, without long-term current use of insulin Psoriatic arthritis (Multi) Psoriatic arthropathy Chronic atrial fibrillation, unspecified (Multi) Special screening for malignant neoplasm of prostate Primary osteoarthritis of left hip- Primary Hypercholesterolemia Pure hypercholesterolemia Type 2 diabetes mellitus with hyperglycemia, without long-term current use of insulin Benign essential hypertension Essential hypertension, benign documented in this encounter [facility] Work Phone: Evaluation note* Diagnosis Type 2 diabetes mellitus without complication, without long-term current use of insulin- Primary Psoriatic arthritis (Multi) Psoriatic arthropathy Chronic atrial fibrillation, unspecified (Multi) Benign essential hypertension Essential hypertension, benign Hypercholesterolemia Pure hypercholesterolemia Hypertriglyceridemia Pure hyperglyceridemia Healthcare maintenance Special screening for malignant neoplasm of prostate Routine general medical examination at health care facility [facility]- Primary Routine general medical examination at a [facility] Benign essential hypertension Essential hypertension, benign Type 2 diabetes mellitus with hyperglycemia, without long-term current use of insulin Hypercholesterolemia Pure hypercholesterolemia Hypertriglyceridemia Pure hyperglyceridemia Type 2 diabetes mellitus with diabetic cataract, without long-term current use of insulin Psoriatic arthritis (Multi) Psoriatic arthropathy Chronic atrial fibrillation, unspecified (Multi) Special screening for malignant neoplasm of prostate Primary osteoarthritis of left hip documented in this encounter [facility] Work Phone: Evaluation note* Diagnosis Type 2 diabetes mellitus without complication, without long-term current use of insulin- Primary Psoriatic arthritis (Multi) Psoriatic arthropathy Chronic atrial fibrillation, unspecified (Multi) Benign essential hypertension Essential hypertension, benign Hypercholesterolemia Pure hypercholesterolemia Hypertriglyceridemia Pure hyperglyceridemia Healthcare maintenance Special screening for malignant neoplasm of prostate Routine general medical examination at [facility] Routine general medical examination at a [facility] Routine general medical examination at [facility]- Primary Routine general medical examination at a [facility] Benign essential hypertension Essential hypertension, benign Type 2 diabetes mellitus with hyperglycemia, without long-term current use of insulin Hypercholesterolemia Pure hypercholesterolemia Hypertriglyceridemia Pure hyperglyceridemia Type 2 diabetes mellitus with diabetic cataract, without long-term current use of insulin Psoriatic arthritis (Multi) Psoriatic arthropathy Chronic atrial fibrillation, unspecified (Multi) Special screening for malignant neoplasm of prostate Primary osteoarthritis of left hip- Primary Benign essential hypertension Essential hypertension, benign documented in this encounter [facility] Work Phone: Evaluation note* Diagnosis Type 2 diabetes mellitus without complication, without long-term current use of insulin (Multi)- Primary Psoriatic arthritis (Multi) Psoriatic arthropathy Chronic atrial fibrillation, unspecified (Multi) Benign essential hypertension Essential hypertension, benign Hypercholesterolemia Pure hypercholesterolemia Hypertriglyceridemia Pure hyperglyceridemia Healthcare maintenance Special screening for malignant neoplasm of prostate Routine general medical examination at health care facility Routine general medical examination at a health care facility [facility]- Primary Routine general medical examination at a health care facility Benign essential hypertension Essential hypertension, benign Type 2 diabetes mellitus with hyperglycemia, without long-term current use of insulin (Multi) Hypercholesterolemia Pure hypercholesterolemia Hypertriglyceridemia Pure hyperglyceridemia Type 2 diabetes mellitus with diabetic cataract, without long-term current use of insulin (Multi) Psoriatic arthritis (Multi) Psoriatic arthropathy Chronic atrial fibrillation, unspecified (Multi) Special screening for malignant neoplasm of prostate Benign essential hypertension- Primary Essential hypertension, benign Chronic atrial fibrillation, unspecified (Multi) documented in this encounter [facility] Work Phone: History of Present illness NarrativeHERE FOR F/U NO COMPLAINTNorthern [facility] Work Phone: History of Present illness NarrativeHERE FOR F/U NO [facility] Work Phone: History of Present illness Narrative* The patient is being seen for the subsequent annual wellness visit. * Past Medical, Surgical and Family History: reviewed and updated in chart. * Medications and Supplements: Review of all medications by a prescribing practitioner or clinical pharmacist (such as prescriptions, OTCs, herbal therapies and supplements) documented in the medical record. * No, the patient is not using opioids. * Patient Self Assessment of Health Status: fair. * Tobacco use: Non-User * Alcohol use: Non-User * Illicit drug use: Non-User * Current diet: unhealthy diet. * Exercise Frequency: the patient does not exercise. * Depression/Suicide Screening: . * During the past 2 weeks, the patient has not felt down, depressed or hopeless. * During the past 2 weeks, the patient has not felt little interest or pleasure in doing things. * Hearing Impairment: Patient has slight hearing impairment. * Cognitive Impairment: No cognitive impairment observed. * Bathing: performs independently. * Dressing: performs independently. * Walking: performs independently. * Managing Finances: performs independently. * Shopping: performs independently. * Managing Medications: performs independently. * Housework / Basic Home Maintenance: performs independently. * Falls Risk Screening:. HATTIE has not fallen in the last 6 months. * Home safety risk factors: none. * Advance directives:. Advance Care Planning discussed and documented in the medical record, patient did not wish or was not able to name a surrogate decision maker or provide an advance care plan. * Additional Information: BRING A COPY. * HERE FOR F/U NO COMPLAINT * WELLNESS EXAM [facility] Work Phone: History of Present illness Narrative* The patient is being seen for the subsequent annual wellness visit. * Past Medical, Surgical and Family History: reviewed and updated in chart. * Medications and Supplements: Review of all medications by a prescribing practitioner or clinical pharmacist (such as prescriptions, OTCs, herbal therapies and supplements) documented in the medical record. * No, the patient is not using opioids. * Patient Self Assessment of Health Status: fair. * Tobacco use: Non-User * Alcohol use: Non-User * Illicit drug use: Non-User * Current diet: unhealthy diet. * Exercise Frequency: the patient does not exercise. * Depression/Suicide Screening: . * During the past 2 weeks, the patient has not felt down, depressed or hopeless. * During the past 2 weeks, the patient has not felt little interest or pleasure in doing things. * Hearing Impairment: Patient has slight hearing impairment. * Cognitive Impairment: No cognitive impairment observed. * Bathing: performs independently. * Dressing: performs independently. * Walking: performs independently. * Managing Finances: performs independently. * Shopping: performs independently. * Managing Medications: performs independently. * Housework / Basic Home Maintenance: performs independently. * Falls Risk Screening:. HATTIE has not fallen in the last 6 months. * Home safety risk factors: none. * Advance directives:. Advance Care Planning discussed and documented in the medical record, patient did not wish or was not able to name a surrogate decision maker or provide an advance care plan. * Additional Information: BRING A COPY. * HERE FOR F/U NO COMPLAINT * WELLNESS EXAM [facility] Work Phone: History of Present illness NarrativeHERE FOR F/U NO COMPLAINTNorthern [facility] Work Phone: History of Present illness NarrativeHERE FOR F/U NO COMPLAINTNorthern [facility] Work Phone: History of Present illness Narrative* HERE FOR F/U WITH LABS * C/O LE CRAMPS X 1 MO * BP VERY GOOD AT HOME [facility] Work Phone: History of Present illness Narrative* Neymar Xavier MD - 10/18/2024 11:15 AM EDT Subjective Patient ID: Hattie Valderrama is a 79 y.o. male who presents for Follow-up (Fu ct chest today). Here for fu after CT feels fine Review of Systems Constitutional: Negative. Negative for chills and fever. HENT: Negative. Negative for congestion. Eyes: Negative. Negative for discharge. Respiratory: Negative. Negative for cough, shortness of breath and wheezing. Cardiovascular: Negative. Negative for chest pain, palpitations and leg swelling. Gastrointestinal: Negative. Negative for abdominal distention, abdominal pain, constipation, diarrhea, nausea and vomiting. Endocrine: Negative. Genitourinary: Negative. Negative for dysuria and urgency. Musculoskeletal: Negative. Negative for back pain, joint swelling and neck stiffness. Skin: Negative. Negative for rash. Allergic/Immunologic: Negative. Negative for immunocompromised state. Neurological: Negative. Negative for light-headedness, numbness and headaches. Hematological: Negative. Negative for adenopathy. Psychiatric/Behavioral: Negative. Negative for agitation, behavioral problems and confusion. All other systems reviewed and are negative. Objective Physical Exam Vitals reviewed. Constitutional: General: He is not in acute distress. Appearance: Normal appearance. HENT: Head: Normocephalic and atraumatic. Nose: Nose normal. Eyes: Conjunctiva/sclera: Conjunctivae normal. Pupils: Pupils are equal, round, and reactive to light. Neck: Vascular: No carotid bruit. Cardiovascular: Rate and Rhythm: Normal rate and regular rhythm. Pulses: Normal pulses. Heart sounds: No gallop. Pulmonary: Effort: Pulmonary effort is normal. No respiratory distress. Breath sounds: Normal breath sounds. No wheezing. Abdominal: General: Bowel sounds are normal. Palpations: Abdomen is soft. Tenderness: There is no abdominal tenderness. Musculoskeletal: General: Normal range of motion. Cervical back: Normal range of motion. No rigidity. Lymphadenopathy: Cervical: No cervical adenopathy. Skin: General: Skin is warm. Findings: No rash. Neurological: General: No focal deficit present. Mental Status: He is alert and oriented to person, place, and time. Psychiatric: Mood and Affect: Mood normal. Behavior: Behavior normal. BP 134/84 (BP Location: Left arm, Patient Position: Sitting) Pulse 96 Ht 1.829 m (6') Wt 99.8kg (220 lb) BMI 29.84 kg/m Hemoglobin A1C Date/Time Value Ref Range Status 07/04/2024 09:27 AM 6.8 (H) See comment % Final Assessment/Plan Problem List Items Addressed This Visit Benign essential hypertension - Primary Other Visit Diagnoses Type 2 diabetes mellitus without complication, without long-term current use of insulin Relevant Medications blood sugar diagnostic (Accu-Chek SmartView Test Strip) Abnormal CT scan of lung Labs reviewed with pt CT dw pt Clinically doing fine Diabetes Mellitus/IFG addressed as follow: [address] HGA1C GOAL LESS THAN 7 LOSE WT EXERCISE DAILY HTN addressed as follow: MONITOR BP GOAL BP LOWER THAN 130/80 LOW SALT EXERCISE DAILY Fu [facility] History of Present illness Narrative* Neymar Xavier MD - 02/13/2025 9:00 AM EDT Subjective Patient ID: Hattie Valderrama is a 79 y.o. male who presents for Follow-up (Fu doppler and xray). Fu after XR and doppler Still has left upper thigh pain Review of Systems Constitutional: Negative. Negative for chills and fever. HENT: Negative. Negative for congestion. Eyes: Negative. Negative for discharge. Respiratory: Negative. Negative for cough, shortness of breath and wheezing. Cardiovascular: Negative. Negative for chest pain, palpitations and leg swelling. Gastrointestinal: Negative. Negative for abdominal distention, abdominal pain, constipation, diarrhea, nausea and vomiting. Endocrine: Negative. Genitourinary: Negative. Negative for dysuria and urgency. Musculoskeletal: Negative. Negative for back pain, joint swelling and neck stiffness. Skin: Negative. Negative for rash. Allergic/Immunologic: Negative. Negative for immunocompromised state. Neurological: Negative. Negative for light-headedness, numbness and headaches. Hematological: Negative. Negative for adenopathy. Psychiatric/Behavioral: Negative. Negative for agitation, behavioral problems and confusion. All other systems reviewed and are negative. Objective Physical Exam Vitals reviewed. Constitutional: General: He is not in acute distress. Appearance: Normal appearance. HENT: Head: Normocephalic and atraumatic. Nose: Nose normal. Eyes: Conjunctiva/sclera: Conjunctivae normal. Pupils: Pupils are equal, round, and reactive to light. Neck: Vascular: No carotid bruit. Cardiovascular: Rate and Rhythm: Normal rate and regular rhythm. Pulses: Normal pulses. Heart sounds: No gallop. Pulmonary: Effort: Pulmonary effort is normal. No respiratory distress. Breath sounds: Normal breath sounds. No wheezing. Abdominal: General: Bowel sounds are normal. Palpations: Abdomen is soft. Tenderness: There is no abdominal tenderness. Musculoskeletal: General: Normal range of motion. Cervical back: Normal range of motion. No rigidity. Lymphadenopathy: Cervical: No cervical adenopathy. Skin: General: Skin is warm. Findings: No rash. Neurological: General: No focal deficit present. Mental Status: He is alert and oriented to person, place, and time. Psychiatric: Mood and Affect: Mood normal. Behavior: Behavior normal. BP 131/77 (BP Location: Left arm, Patient Position: Sitting) Pulse 85 Ht 1.829 m (6') Wt 101 kg (222 lb) BMI 30.11 kg/m PSA, TOTAL Date/Time Value Ref Range Status 01/30/2025 10:15 AM 1.98 < OR = 4.00 ng/mL Final Comment: The total PSA value from this assay system is standardized against the WHO standard. The test result will be approximately 20% lower when compared to the equimolar-standardized total PSA (Renny Leona). Comparison of serial PSA results should be interpreted with this fact in mind. This test was performed using the Siemens chemiluminescent method. Values obtained from different assay methods cannot be used interchangeably. PSA levels, regardless of value, should not be interpreted as absolute evidence of the presence or absence of disease. HEMOGLOBIN A1c Date/Time Value Ref Range Status 02/06/2025 10:59 AM 6.9 (H) <5.7 % Final Comment: For someone without known diabetes, a hemoglobin A1c value of 6.5% or greater indicates that they may have diabetes and this should be confirmed with a follow-up test. For someone with known diabetes, a value <7% indicates that their diabetes is well controlled and a value greater than or equal to 7% indicates suboptimal control. A1c targets should be individualized based on duration of diabetes, age, comorbid conditions, and other considerations. Currently, no consensus exists regarding use of hemoglobin A1c for diagnosis of diabetes for children. Assessment/Plan Problem List Items Addressed This Visit Benign essential hypertension Type 2 diabetes mellitus with hyperglycemia, without long-term current use of insulin Relevant Medications atorvastatin (Lipitor) 40 mg tablet Other Relevant Orders Hemoglobin A1C Albumin-Creatinine Ratio, Urine Random Hypercholesterolemia Relevant Medications atorvastatin (Lipitor) 40 mg tablet Other Relevant Orders Comprehensive Metabolic Panel Other Visit Diagnoses Primary osteoarthritis of left hip - Primary Relevant Orders Referral to Physical Therapy MR hip left wo IV contrast Comprehensive Metabolic Panel Doppler - Xr moderate OA left hip Labs reviewed with pt Diabetes Mellitus/IFG addressed as follow: [address] HGA1C GOAL LESS THAN 7 LOSE WT EXERCISE DAILY HTN addressed as follow: MONITOR BP GOAL BP LOWER THAN 130/80 LOW SALT EXERCISE DAILY Fu 1 mo HIP/ PT Fu 4 mo bw [facility] Work [facility]: Rewwls for referral (narrative)* Consultation (Routine) - Authorized Specialty Diagnoses / Procedures Referred By Vikas coyne Referred To Contact Primary Care Diagnoses Type 2 diabetes mellitus without complication, without long-term current use of insulin (CMS/HCC) Psoriatic arthritis (CMS/HCC) Chronic atrial fibrillation, unspecified (CMS/HCC) Benign essential hypertension Hypercholesterolemia Hypertriglyceridemia Healthcare maintenance Procedures Follow Up In Primary Care Neymar Xavier MD [address] [place] [address] Referral ID Status Reason Start Date Expiration Date V isits Requested Visits Authorized [id number] Authorized 09/10/2022 03/09/2023 1 1 [facility] Work Phone: Reason for referral (narrative)No reason for referral information availableWTogus [facility] Work Phone: Reason for visit Narrative* Imaging (Routine) - Authorized Specialty Diagnoses / Procedures Referred By Vikas coyne Referred To Contact Radiology Diagnoses Abnormal CT scan of lung Procedures CT chest w IV contrast Neymar Xavier MD [address] [place] [address] Phone: tel: fax: Referral ID Status Reason Start Date Expiration Date Visits Requested Visits Authorized [id number] Authorized Perform Procedure 09/27/2024 09/27/2025 1 1 [facility] Work Phone: Reason for visit Narrative* Imaging (Routine) - Pending Review Specialty Diagnoses / Procedures Referred By Contac t Referred To Contact Cardiology Diagnoses Left thigh pain Procedures Lower extremity venous duplex left Neymar Xavier MD [address] [place] [address] Phone: tel: fax: Referral ID Status Reason Start Date Expiration Date Visits Requested Visits Authorized [id number] Pending Review Perform Procedure 02/06/2025 02/06/2026 1 1 [facility] Work Phone: Reason for visit Narrative* Imaging (Routine) - Authorized Specialty Diagnoses / Procedures Referred By Contac t Referred To Contact Radiology Diagnoses Left thigh pain Procedures XR femur left 2+ views Neymar Xavier MD [address] [place] [address] Phone: tel: fax: Referral ID Status Reason Start Date Expiration Date Visits Requested Visits Authorized [id number] Authorized Perform Procedure 02/06/2025 02/06/2026 1 1 [facility] Work Phone: Reason for visit Narrative* Imaging (Routine) - Authorized Specialty Diagnoses / Procedures Referred By Contac t Referred To Contact Radiology Diagnoses Primary osteoarthritis of left hip Procedures MR hip left wo IV contrast Neymar Xavier MD [address] [place] [address] Phone: tel: fax: Referral ID Status Reason Start Date Expiration Date Visits Requested Visits Authorized [id number] Authorized Perform Procedure 02/13/2025 03/16/2026 1 1 [facility] Work Phone: Summary Purpose Family History No Family History Records Found Mother Name Dates Details Family history of malignant neoplasm of kidney(V16.51, Z80.51) Status:Active Brother Name Dates Details Family history of type 2 sharyn betes mellitus(V18.0, Z83.3) Status:Active Family history of hypertensi on(V17.49, Z82.49) Status:Active Family history of myocardial infarction(V17.3, Z82.49) Status:Active Family history of lung cance r(V16.1, Z80.1) Status:Active Mother Name Dates Details Family history of malignant neoplasm of kidney(V16.51, Z80.51) Status:Active Brother Name Dates Details Family history of type 2 sharyn betes mellitus(V18.0, Z83.3) Status:Active Family history of hypertensi on(V17.49, Z82.49) Status:Active Family history of myocardial infarction(V17.3, Z82.49) Status:Active Family history of lung cance r(V16.1, Z80.1) Status:Active Mother Name Dates Details Family history of malignant neoplasm of kidney(V16.51, Z80.51) Status:Active Brother Name Dates Details Family history of type 2 sharyn betes mellitus(V18.0, Z83.3) Status:Active Family history of hypertensi on(V17.49, Z82.49) Status:Active Family history of myocardial infarction(V17.3, Z82.49) Status:Active Family history of lung cance r(V16.1, Z80.1) Status:Active Mother Name Dates Details Family history of malignant neoplasm of kidney(V16.51, Z80.51) Status:Active Brother Name Dates Details Family history of type 2 sharyn betes mellitus(V18.0, Z83.3) Status:Active Family history of hypertensi on(V17.49, Z82.49) Status:Active Family history of myocardial infarction(V17.3, Z82.49) Status:Active Family history of lung cance r(V16.1, Z80.1) Status:Active Mother Name Dates Details Family history of malignant neoplasm of kidney(V16.51, Z80.51) Status:Active Father Name Dates Details No pertinent family history( V49.89, Z78.9) Status:Active Brother Name Dates Details Family history of type 2 sharyn betes mellitus(V18.0, Z83.3) Status:Active Family history of hypertensi on(V17.49, Z82.49) Status:Active Family history of myocardial infarction(V17.3, Z82.49) Status:Active Family history of lung cance r(V16.1, Z80.1) Status:Active Mother Name Dates Details Family history of malignant neoplasm of kidney(V16.51, Z80.51) Status:Active Father Name Dates Details No pertinent family history( V49.89, Z78.9) Status:Active Brother Name Dates Details Family history of type 2 sharyn betes mellitus(V18.0, Z83.3) Status:Active Family history of hypertensi on(V17.49, Z82.49) Status:Active Family history of myocardial infarction(V17.3, Z82.49) Status:Active Family history of lung cance r(V16.1, Z80.1) Status:Active Mother Name Dates Details Family history of malignant neoplasm of kidney(V16.51, Z80.51) Status:Active Father Name Dates Details No pertinent family history( V49.89, Z78.9) Status:Active Brother Name Dates Details Family history of type 2 sharyn betes mellitus(V18.0, Z83.3) Status:Active Family history of hypertensi on(V17.49, Z82.49) Status:Active Family history of myocardial infarction(V17.3, Z82.49) Status:Active Family history of lung cance r(V16.1, Z80.1) Status:Active Mother Name Dates Details Family history of malignant neoplasm of kidney(V16.51, Z80.51) Status:Active Father Name Dates Details No pertinent family history( V49.89, Z78.9) Status:Active Brother Name Dates Details Family history of type 2 sharyn betes mellitus(V18.0, Z83.3) Status:Active Family history of hypertensi on(V17.49, Z82.49) Status:Active Family history of myocardial infarction(V17.3, Z82.49) Status:Active Family history of lung cance r(V16.1, Z80.1) Status:Active Mother Name Dates Details Family history of malignant neoplasm of kidney(V16.51, Z80.51) Status:Active Father Name Dates Details No pertinent family history( V49.89, Z78.9) Status:Active Brother Name Dates Details Family history of type 2 sharyn betes mellitus(V18.0, Z83.3) Status:Active Family history of hypertensi on(V17.49, Z82.49) Status:Active Family history of myocardial infarction(V17.3, Z82.49) Status:Active Family history of lung cance r(V16.1, Z80.1) Status:Active Mother Name Dates Details Family history of malignant neoplasm of kidney(V16.51, Z80.51) Status:Active Father Name Dates Details No pertinent family history( V49.89, Z78.9) Status:Active Brother Name Dates Details Family history of type 2 sharyn betes mellitus(V18.0, Z83.3) Status:Active Family history of hypertensi on(V17.49, Z82.49) Status:Active Family history of myocardial infarction(V17.3, Z82.49) Status:Active Family history of lung cance r(V16.1, Z80.1) Status:Active Mother Name Dates Details Family history of malignant neoplasm of kidney(V16.51, Z80.51) Status:Active Father Name Dates Details No pertinent family history( V49.89, Z78.9) Status:Active Brother Name Dates Details Family history of type 2 sharyn betes mellitus(V18.0, Z83.3) Status:Active Family history of hypertensi on(V17.49, Z82.49) Status:Active Family history of myocardial infarction(V17.3, Z82.49) Status:Active Family history of lung cance r(V16.1, Z80.1) Status:Active Unknown Family Member Name Dates Details Family history of malignant neoplasm of kidney: Mother(V16.51, Z80.51) Status:Active Family history of type 2 sharyn betes mellitus: Brother(V18.0, Z83.3) Status:Active Family history of hypertensi on: Brother(V17.49, Z82.49) Status:Active Family history of myocardial infarction: Brother(V17.3, Z82.49) Status:Active Family history of lung cance r: Brother(V16.1, Z80.1) Status:Active No pertinent family history: Father(V49.89, Z78.9) Status:Active Unknown Family Member Name Dates Details Family history of malignant neoplasm of kidney: Mother(V16.51, Z80.51) Status:Active Family history of type 2 sharyn betes mellitus: Brother(V18.0, Z83.3) Status:Active Family history of hypertensi on: Brother(V17.49, Z82.49) Status:Active Family history of myocardial infarction: Brother(V17.3, Z82.49) Status:Active Family history of lung cance r: Brother(V16.1, Z80.1) Status:Active No pertinent family history: Father(V49.89, Z78.9) Status:Active Unknown Family Member Name Dates Details Family history of malignant neoplasm of kidney: Mother(V16.51, Z80.51) Status:Active Family history of type 2 sharyn betes mellitus: Brother(V18.0, Z83.3) Status:Active Family history of hypertensi on: Brother(V17.49, Z82.49) Status:Active Family history of myocardial infarction: Brother(V17.3, Z82.49) Status:Active Family history of lung cance r: Brother(V16.1, Z80.1) Status:Active No pertinent family history: Father(V49.89, Z78.9) Status:Active Unknown Family Member Name Dates Details Family history of malignant neoplasm of kidney: Mother(V16.51, Z80.51) Status:Active Family history of type 2 sharyn betes mellitus: Brother(V18.0, Z83.3) Status:Active Family history of hypertensi on: Brother(V17.49, Z82.49) Status:Active Family history of myocardial infarction: Brother(V17.3, Z82.49) Status:Active Family history of lung cance r: Brother(V16.1, Z80.1) Status:Active No pertinent family history: Father(V49.89, Z78.9) Status:Active Unknown Family Member Name Dates Details No pertinent family history: Father(V49.89, Z78.9) Status:Active Family history of lung cance r: Brother(V16.1, Z80.1) Status:Active Family history of myocardial infarction: Brother(V17.3, Z82.49) Status:Active Family history of hypertensi on: Brother(V17.49, Z82.49) Status:Active Family history of type 2 sharyn betes mellitus: Brother(V18.0, Z83.3) Status:Active Family history of malignant neoplasm of kidney: Mother(V16.51, Z80.51) Status:Active Unknown Family Member Name Dates Details Family history of malignant neoplasm of kidney: Mother(V16.51, Z80.51) Status:Active Family history of type 2 sharyn betes mellitus: Brother(V18.0, Z83.3) Status:Active Family history of hypertensi on: Brother(V17.49, Z82.49) Status:Active Family history of myocardial infarction: Brother(V17.3, Z82.49) Status:Active Family history of lung cance r: Brother(V16.1, Z80.1) Status:Active No pertinent family history: Father(V49.89, Z78.9) Status:Active Unknown Family Member Name Dates Details Family history of malignant neoplasm of kidney: Mother(V16.51, Z80.51) Status:Active Family history of type 2 sharyn betes mellitus: Brother(V18.0, Z83.3) Status:Active Family history of hypertensi on: Brother(V17.49, Z82.49) Status:Active Family history of myocardial infarction: Brother(V17.3, Z82.49) Status:Active Family history of lung cance r: Brother(V16.1, Z80.1) Status:Active No pertinent family history: Father(V49.89, Z78.9) Status:Active Unknown Family Member Name Dates Details Family history of malignant neoplasm of kidney: Mother(V16.51, Z80.51) Status:Active Family history of type 2 sharyn betes mellitus: Brother(V18.0, Z83.3) Status:Active Family history of hypertensi on: Brother(V17.49, Z82.49) Status:Active Family history of myocardial infarction: Brother(V17.3, Z82.49) Status:Active Family history of lung cance r: Brother(V16.1, Z80.1) Status:Active No pertinent family history: Father(V49.89, Z78.9) Status:Active Unknown Family Member Name Dates Details Family history of malignant neoplasm of kidney: Mother(V16.51, Z80.51) Status:Active Family history of type 2 sharyn betes mellitus: Brother(V18.0, Z83.3) Status:Active Family history of hypertensi on: Brother(V17.49, Z82.49) Status:Active Family history of myocardial infarction: Brother(V17.3, Z82.49) Status:Active Family history of lung cance r: Brother(V16.1, Z80.1) Status:Active No pertinent family history: Father(V49.89, Z78.9) Status:Active Unknown Family Member Name Dates Details No pertinent family history: Father(V49.89, Z78.9) Status:Active Family history of lung cance r: Brother(V16.1, Z80.1) Status:Active Family history of myocardial infarction: Brother(V17.3, Z82.49) Status:Active Family history of hypertensi on: Brother(V17.49, Z82.49) Status:Active Family history of type 2 sharyn betes mellitus: Brother(V18.0, Z83.3) Status:Active Family history of malignant neoplasm of kidney: Mother(V16.51, Z80.51) Status:Active Unknown Family Member Name Dates Details Family history of malignant neoplasm of kidney: Mother(V16.51, Z80.51) Status:Active Family history of type 2 sharyn betes mellitus: Brother(V18.0, Z83.3) Status:Active Family history of hypertensi on: Brother(V17.49, Z82.49) Status:Active Family history of myocardial infarction: Brother(V17.3, Z82.49) Status:Active Family history of lung cance r: Brother(V16.1, Z80.1) Status:Active No pertinent family history: Father(V49.89, Z78.9) Status:Active Unknown Family Member Name Dates Details No pertinent family history: Father(V49.89, Z78.9) Status:Active Family history of lung cance r: Brother(V16.1, Z80.1) Status:Active Family history of myocardial infarction: Brother(V17.3, Z82.49) Status:Active Family history of hypertensi on: Brother(V17.49, Z82.49) Status:Active Family history of type 2 sharyn betes mellitus: Brother(V18.0, Z83.3) Status:Active Family history of malignant neoplasm of kidney: Mother(V16.51, Z80.51) Status:Active Unknown Family Member Name Dates Details Family history of malignant neoplasm of kidney: Mother(V16.51, Z80.51) Status:Active Family history of type 2 sharyn betes mellitus: Brother(V18.0, Z83.3) Status:Active Family history of hypertensi on: Brother(V17.49, Z82.49) Status:Active Family history of myocardial infarction: Brother(V17.3, Z82.49) Status:Active Family history of lung cance r: Brother(V16.1, Z80.1) Status:Active No pertinent family history: Father(V49.89, Z78.9) Status:Active Unknown Family Member Name Dates Details Family history of malignant neoplasm of kidney: Mother(V16.51, Z80.51) Status:Active Family history of type 2 sharyn betes mellitus: Brother(V18.0, Z83.3) Status:Active Family history of hypertensi on: Brother(V17.49, Z82.49) Status:Active Family history of myocardial infarction: Brother(V17.3, Z82.49) Status:Active Family history of lung cance r: Brother(V16.1, Z80.1) Status:Active No pertinent family history: Father(V49.89, Z78.9) Status:Active Unknown Family Member Name Dates Details Family history of malignant neoplasm of kidney: Mother(V16.51, Z80.51) Status:Active Family history of type 2 sharyn betes mellitus: Brother(V18.0, Z83.3) Status:Active Family history of hypertensi on: Brother(V17.49, Z82.49) Status:Active Family history of myocardial infarction: Brother(V17.3, Z82.49) Status:Active Family history of lung cance r: Brother(V16.1, Z80.1) Status:Active No pertinent family history: Father(V49.89, Z78.9) Status:Active Unknown Family Member Name Dates Details Family history of malignant neoplasm of kidney: Mother(V16.51, Z80.51) Status:Active Family history of type 2 sharyn betes mellitus: Brother(V18.0, Z83.3) Status:Active Family history of hypertensi on: Brother(V17.49, Z82.49) Status:Active Family history of myocardial infarction: Brother(V17.3, Z82.49) Status:Active Family history of lung cance r: Brother(V16.1, Z80.1) Status:Active No pertinent family history: Father(V49.89, Z78.9) Status:Active Unknown Family Member Name Dates Details Family history of malignant neoplasm of kidney: Mother(V16.51, Z80.51) Status:Active Family history of type 2 sharyn betes mellitus: Brother(V18.0, Z83.3) Status:Active Family history of hypertensi on: Brother(V17.49, Z82.49) Status:Active Family history of myocardial infarction: Brother(V17.3, Z82.49) Status:Active Family history of lung cance r: Brother(V16.1, Z80.1) Status:Active No pertinent family history: Father(V49.89, Z78.9) Status:Active Unknown Family Member Name Dates Details Family history of malignant neoplasm of kidney: Mother(V16.51, Z80.51) Status:Active Family history of type 2 sharyn betes mellitus: Brother(V18.0, Z83.3) Status:Active Family history of hypertensi on: Brother(V17.49, Z82.49) Status:Active Family history of myocardial infarction: Brother(V17.3, Z82.49) Status:Active Family history of lung cance r: Brother(V16.1, Z80.1) Status:Active No pertinent family history: Father(V49.89, Z78.9) Status:Active Unknown Family Member Name Dates Details Family history of malignant neoplasm of kidney: Mother(V16.51, Z80.51) Status:Active Family history of type 2 sharyn betes mellitus: Brother(V18.0, Z83.3) Status:Active Family history of hypertensi on: Brother(V17.49, Z82.49) Status:Active Family history of myocardial infarction: Brother(V17.3, Z82.49) Status:Active Family history of lung cance r: Brother(V16.1, Z80.1) Status:Active No pertinent family history: Father(V49.89, Z78.9) Status:Active Unknown Family Member Name Dates Details Family history of malignant neoplasm of kidney: Mother(V16.51, Z80.51) Status:Active Family history of type 2 sharyn betes mellitus: Brother(V18.0, Z83.3) Status:Active Family history of hypertensi on: Brother(V17.49, Z82.49) Status:Active Family history of myocardial infarction: Brother(V17.3, Z82.49) Status:Active Family history of lung cance r: Brother(V16.1, Z80.1) Status:Active No pertinent family history: Father(V49.89, Z78.9) Status:Active Unknown Family Member Name Dates Details Family history of malignant neoplasm of kidney: Mother(V16.51, Z80.51) Status:Active Family history of type 2 sharyn betes mellitus: Brother(V18.0, Z83.3) Status:Active Family history of hypertensi on: Brother(V17.49, Z82.49) Status:Active Family history of myocardial infarction: Brother(V17.3, Z82.49) Status:Active Family history of lung cance r: Brother(V16.1, Z80.1) Status:Active No pertinent family history: Father(V49.89, Z78.9) Status:Active Unknown Family Member Name Dates Details Family history of malignant neoplasm of kidney: Mother(V16.51, Z80.51) Status:Active Family history of type 2 sharyn betes mellitus: Brother(V18.0, Z83.3) Status:Active Family history of hypertensi on: Brother(V17.49, Z82.49) Status:Active Family history of myocardial infarction: Brother(V17.3, Z82.49) Status:Active Family history of lung cance r: Brother(V16.1, Z80.1) Status:Active No pertinent family history: Father(V49.89, Z78.9) Status:Active Unknown Family Member Name Dates Details Family history of malignant neoplasm of kidney: Mother(V16.51, Z80.51) Status:Active Family history of type 2 sharyn betes mellitus: Brother(V18.0, Z83.3) Status:Active Family history of hypertensi on: Brother(V17.49, Z82.49) Status:Active Family history of myocardial infarction: Brother(V17.3, Z82.49) Status:Active Family history of lung cance r: Brother(V16.1, Z80.1) Status:Active No pertinent family history: Father(V49.89, Z78.9) Status:Active Unknown Family Member Name Dates Details Family history of malignant neoplasm of kidney: Mother(V16.51, Z80.51) Status:Active Family history of type 2 sharyn betes mellitus: Brother(V18.0, Z83.3) Status:Active Family history of hypertensi on: Brother(V17.49, Z82.49) Status:Active Family history of myocardial infarction: Brother(V17.3, Z82.49) Status:Active Family history of lung cance r: Brother(V16.1, Z80.1) Status:Active No pertinent family history: Father(V49.89, Z78.9) Status:Active Unknown Family Member Name Dates Details Family history of malignant neoplasm of kidney: Mother(V16.51, Z80.51) Status:Active Family history of type 2 sharyn betes mellitus: Brother(V18.0, Z83.3) Status:Active Family history of hypertensi on: Brother(V17.49, Z82.49) Status:Active Family history of myocardial infarction: Brother(V17.3, Z82.49) Status:Active Family history of lung cance r: Brother(V16.1, Z80.1) Status:Active No pertinent family history: Father(V49.89, Z78.9) Status:Active Unknown Family Member Name Dates Details Family history of malignant neoplasm of kidney: Mother(V16.51, Z80.51) Status:Active Family history of type 2 sharyn betes mellitus: Brother(V18.0, Z83.3) Status:Active Family history of hypertensi on: Brother(V17.49, Z82.49) Status:Active Family history of myocardial infarction: Brother(V17.3, Z82.49) Status:Active Family history of lung cance r: Brother(V16.1, Z80.1) Status:Active No pertinent family history: Father(V49.89, Z78.9) Status:Active Unknown Family Member Name Dates Details Family history of malignant neoplasm of kidney: Mother(V16.51, Z80.51) Status:Active Family history of type 2 sharyn betes mellitus: Brother(V18.0, Z83.3) Status:Active Family history of hypertensi on: Brother(V17.49, Z82.49) Status:Active Family history of myocardial infarction: Brother(V17.3, Z82.49) Status:Active Family history of lung cance r: Brother(V16.1, Z80.1) Status:Active No pertinent family history: Father(V49.89, Z78.9) Status:Active Unknown Family Member Name Dates Details Family history of malignant neoplasm of kidney: Mother(V16.51, Z80.51) Status:Active Family history of type 2 sharyn betes mellitus: Brother(V18.0, Z83.3) Status:Active Family history of hypertensi on: Brother(V17.49, Z82.49) Status:Active Family history of myocardial infarction: Brother(V17.3, Z82.49) Status:Active Family history of lung cance r: Brother(V16.1, Z80.1) Status:Active No pertinent family history: Father(V49.89, Z78.9) Status:Active Unknown Family Member Name Dates Details Family history of malignant neoplasm of kidney: Mother(V16.51, Z80.51) Status:Active Family history of type 2 sharyn betes mellitus: Brother(V18.0, Z83.3) Status:Active Family history of hypertensi on: Brother(V17.49, Z82.49) Status:Active Family history of myocardial infarction: Brother(V17.3, Z82.49) Status:Active Family history of lung cance r: Brother(V16.1, Z80.1) Status:Active No pertinent family history: Father(V49.89, Z78.9) Status:Active Unknown Family Member Name Dates Details Family history of malignant neoplasm of kidney: Mother(V16.51, Z80.51) Status:Active Family history of type 2 sharyn betes mellitus: Brother(V18.0, Z83.3) Status:Active Family history of hypertensi on: Brother(V17.49, Z82.49) Status:Active Family history of myocardial infarction: Brother(V17.3, Z82.49) Status:Active Family history of lung cance r: Brother(V16.1, Z80.1) Status:Active No pertinent family history: Father(V49.89, Z78.9) Status:Active Unknown Family Member Name Dates Details Family history of malignant neoplasm of kidney: Mother(V16.51, Z80.51) Status:Active Family history of type 2 sharyn betes mellitus: Brother(V18.0, Z83.3) Status:Active Family history of hypertensi on: Brother(V17.49, Z82.49) Status:Active Family history of myocardial infarction: Brother(V17.3, Z82.49) Status:Active Family history of lung cance r: Brother(V16.1, Z80.1) Status:Active No pertinent family history: Father(V49.89, Z78.9) Status:Active Unknown Family Member Name Dates Details Family history of malignant neoplasm of kidney: Mother(V16.51, Z80.51) Status:Active Family history of type 2 sharyn betes mellitus: Brother(V18.0, Z83.3) Status:Active Family history of hypertensi on: Brother(V17.49, Z82.49) Status:Active Family history of myocardial infarction: Brother(V17.3, Z82.49) Status:Active Family history of lung cance r: Brother(V16.1, Z80.1) Status:Active No pertinent family history: Father(V49.89, Z78.9) Status:Active Unknown Family Member Name Dates Details Family history of malignant neoplasm of kidney: Mother(V16.51, Z80.51) Status:Active Family history of type 2 sharyn betes mellitus: Brother(V18.0, Z83.3) Status:Active Family history of hypertensi on: Brother(V17.49, Z82.49) Status:Active Family history of myocardial infarction: Brother(V17.3, Z82.49) Status:Active Family history of lung cance r: Brother(V16.1, Z80.1) Status:Active No pertinent family history: Father(V49.89, Z78.9) Status:Active Unknown Family Member Name Dates Details Family history of malignant neoplasm of kidney: Mother(V16.51, Z80.51) Status:Active Family history of type 2 sharyn betes mellitus: Brother(V18.0, Z83.3) Status:Active Family history of hypertensi on: Brother(V17.49, Z82.49) Status:Active Family history of myocardial infarction: Brother(V17.3, Z82.49) Status:Active Family history of lung cance r: Brother(V16.1, Z80.1) Status:Active No pertinent family history: Father(V49.89, Z78.9) Status:Active Unknown Family Member Name Dates Details Family history of malignant neoplasm of kidney: Mother(V16.51, Z80.51) Status:Active Family history of type 2 sharyn betes mellitus: Brother(V18.0, Z83.3) Status:Active Family history of hypertensi on: Brother(V17.49, Z82.49) Status:Active Family history of myocardial infarction: Brother(V17.3, Z82.49) Status:Active Family history of lung cance r: Brother(V16.1, Z80.1) Status:Active No pertinent family history: Father(V49.89, Z78.9) Status:Active Unknown Family Member Name Dates Details Family history of malignant neoplasm of kidney: Mother(V16.51, Z80.51) Status:Active Family history of type 2 sharyn betes mellitus: Brother(V18.0, Z83.3) Status:Active Family history of hypertensi on: Brother(V17.49, Z82.49) Status:Active Family history of myocardial infarction: Brother(V17.3, Z82.49) Status:Active Family history of lung cance r: Brother(V16.1, Z80.1) Status:Active No pertinent family history: Father(V49.89, Z78.9) Status:Active Advance Directives No Advanced Directives Records Found Advance Directive Response Recorded Date/ Time Living Will No September 20, 2024 5:57pm Do you have a Healthcare Power of Battery Engineer? No September 20, 2024 5:57pm Advance Directive Response Recorded Date/ Time Living Will No September 20, 2024 9:10pm Do you have a Healthcare Power of Battery Engineer? No September 20, 2024 9:10pm Chief Complaint 4 MONTH F/U LABS4 MO F/U WITH LABS NO COMPLAINTSMEDICARE [facility]LLNESS WITH LABS PT HAS BLOOD SUGAR [facility] B[facility] PT HAS BLOOD SUGAR AND BLOOD PRESSURE LOG WITH HIM4 MO F/U WITH LABS.4 MO F/U WITH LABS.PT HERE TODAY FOR 4 MO F/U LAB RESULTS. PT C/O OF CRAMPS IN BOTH LEGS. PT STATES THE CRAMPS STARTED1 MO AGO Reason for Referral Specialty Diagnoses / Procedures Referred By Contac t Referred To Contact Cardiology Diagnoses Localized swelling on left hand Procedures Vascular US upper extremity venous duplex left Neymar Xavier MD [address] [place] [address] Referral ID Status Reason Start Date Expiration Date Visits Requested Visits Authorized [id number] Pending Review Perform Procedure 3 10/04/2023 1 1 Referral ID Status Reason Start Date Expiration Date Visits Requested Visits Authorized [id number] Authorized Perform Procedure 3 10/04/2023 1 1 Specialty Diagnoses / Procedures Referred By Contac t Referred To Contact Diagnoses Pre-operative clearance Procedures ECG 12 Lead Kayla Muse PA-C [address] [place] [address] Referral ID Status Reason Start Date Expiration Date V isits Requested Visits Authorized [id number] Authorized 02/25/2024 02/24/2025 1 1 Specialty Diagnoses / Procedures Referred By Contabby t Referred To Contact Radiology Diagnoses Pre-operative clearance Procedures XR chest 2 views Kayla Muse PA-C [address] [place] [address] Referral ID Status Reason Start Date Expiration Date Visits Requested Visits Authorized [id number] Authorized Perform Procedure 02/24/2024 02/23/2025 1 1 Chief Complaint and Reason for Visit Chief Complaint Admit Date INFLUENZA, SEPSIS, PNEUMONIA September 20, 2024 7:56pm Reason for Visit Admit Date Acute hypoxic respiratory failure September 20, 2024 7:56pm Acute metabolic encephalopathy August 7:56pm Atrial fibrillation with RVR September 20, 2024 7:56pm Influenza A September 20, 2024 7:5 6pm Multifocal pneumonia September 20, 2024 7: 56pm Overweight (BMI 25.0-29.9) September 20 025 7:56pm Sepsis September 20, 2024 7:5 6pm COPD exacerbation September 20, 2024 7:5 6pm Chief Complaint Admit Date SEPSIS 2/2 INFLUENZA A, PNA AND AE COPD September 20, 2024 8:11pm SEPSIS 2/2 INFLUENZA A, PNA AND AE COPD September 21, 2024 7:46am SEPSIS 2/2 INFLUENZA A, PNA AND AE COPD September 21, 2024 7:53am SEPSIS 2/2 INFLUENZA A, PNA AND AE COPD September 22, 2024 7:06am Reason for Visit Admit Date Acute hypoxic respiratory failure September 20, 2024 8:11pm Acute metabolic encephalopathy August 8:11pm Atrial fibrillation with RVR September 20, 2024 8:11pm Dehydration September 20, 2024 8:1 1pm Influenza A September 20, 2024 8:1 1pm Lytic bone lesions on xray September 20, 2 025 8:11pm Multifocal pneumonia September 20, 2024 8: 11pm Overweight (BMI 25.0-29.9) September 20 2 025 8:11pm Pneumonia September 20, 2024 8:1 1pm Sepsis September 20, 2024 8:1 1pm COPD exacerbation September 20, 2024 8:1 1pm Additional Source Comments (unrecognized sect ion and content) No Status Records FoundNo Status Records FoundNo Status Records FoundNo Status Records FoundNo Status Records FoundNo Status Records FoundNo Status Records FoundNo Status Records FoundNo Status Records Found INFORMATION SOURCE (unrecogn ized section and content) DATE CREATED AUTHOR 05/07/2019 [facility] DATE CREATED AUTHOR AUTHOR'S ORGANIZ ATION 05/16/2022 [employer] DATE CREATED AUTHOR AUTHOR'S ORGANIZ ATION 09/04/2022 [facility] DATE CREATED AUTHOR AUTHOR'S ORGANIZ ATION 02/19/2023 [facility] DATE CREATED AUTHOR AUTHOR'S ORGANIZ ATION 07/10/2024 [facility] DATE CREATED AUTHOR AUTHOR'S ORGANIZ ATION 10/25/2024 [facility] DATE CREATED AUTHOR AUTHOR'S ORGANIZ ATION 02/15/2025 [facility] DATE CREATED AUTHOR AUTHOR'S ORGANIZ ATION 04/11/2025 [facility] DATE CREATED AUTHOR AUTHOR'S ORGANIZ ATION 04/15/2025 [facility] Reason for Visit (unrecogniz ed section and content) Reason Comments Follow-up 4 mo fu labs Specialty Diagnoses / Procedures Referred By Vikas coyne Referred To Contact Primary Care Diagnoses Type 2 diabetes mellitus without complication, without long-term current use of insulin ([facility]/HCC) Psoriatic arthritis (CMS/HCC) Chronic atrial fibrillation, unspecified (CMS/HCC) Benign essential hypertension Hypercholesterolemia Hypertriglyceridemia Healthcare maintenance Procedures Follow Up In Primary Care Neymar Xavier MD [address] [place] [address] Referral ID Status Reason Start Date Expiration Date V isits Requested Visits Authorized [id number] Authorized 09/10/2022 03/09/2023 1 1 Reason Comments Follow-up Pt co left hand swel ling Reason Comments Follow-up 4 MONTH F/U WITH LAB S. MAGNESIUM OXIDE ON BACKORDER WITH [facility] - HAS BEEN OUT OF MED SINCE LAST WEEK. Specialty Diagnoses / Procedures Referred By Contac t Referred To Contact Cardiology Diagnoses Localized swelling on left hand Procedures Vascular US upper extremity venous duplex left Neymar Xavier MD [address] [place] [address] Referral ID Status Reason Start Date Expiration Date Visits Requested Visits Authorized [id number] Authorized Perform Procedure 3 10/04/2023 1 1 Reason Comments Follow-up MEDICARE WELLNESS [facility]S Reason Comments Follow-up 4 mo fu lab Reason Comments Follow-up MEDICARE WELL[facility] [place] [facility] TODAY Reason Comments Follow-up PT NEEDS CLEARANCE F OR EYE PROCEDURE Specialty Diagnoses / Procedures Referred By Contac t Referred To Contact Diagnoses Pre-operative clearance Procedures ECG 12 Lead Kayla Muse PA-C [address] [place] [address] Referral ID Status Reason Start Date Expiration Date V isits Requested Visits Authorized [id number] Authorized 02/25/2024 02/24/2025 1 1 Specialty Diagnoses / Procedures Referred By Contac t Referred To Contact Radiology Diagnoses Pre-operative clearance Procedures XR chest 2 views Kayla Muse PA-C [address] [place] [address] Referral ID Status Reason Start Date Expiration Date Visits Requested Visits Authorized [id number] Authorized Perform Procedure 02/24/2024 02/23/2025 1 1 Reason Comments Follow-up Medicare wellness wi th labs Reason Comments Hospital Follow-up [facility] DIS CHARGE FOR FLU A AND PNEUMONIA Reason Comments Follow-up Fu ct chest today Reason Comments Follow-up 6 mo fu lab Reason Comments Follow-up Fu doppler and xray Reason Comments Follow-up 1 month fu + MRI Reason Comments Follow-up 1 MONTH FU + LABS Care Teams (unrecognized sec tion and content) Team Status: Active Member Role Status Dates Dr. Neymar Xavier MD Primary Care Provider Activ e Team Status: Inactive Member Role Status Dates Dr. Stone Leong DO Emergency Provider Activ e Start: September 20, 2024 End: September 22, 2024 Dr. Neymar Xavier MD Primary Care Provider Activ e Start: September 20, 2024 End: September 22, 2024 Dr. Zeferino Estrada , DO Admit Provider Active Start: September 20, 2024 End: September 22, 2024 Dr. Zeferino Estrada , Other Provider Active Start: September 20, 2024 End: September 22, 2024 Dr. Marcelino Gracia , Attending Provider Active Start: September 20, 2024 End: September 22, 2024 Dr. Jason Holland MD Other Provider Active Start: September 20, 2024 Dr. Sameer Rogers MD Other Provider Active Start: September 20, 2024 Dr. Suraj High MD Other Provider Active Star t: September 20, 2024 Dr. Garrett Ambrocio , Other Provider Active Start : September 20, 2024 Dr. Zeferino Kincaid MD Other Provider Active Sta rt: September 20, 2024 Dr. Lg Perez MD Other Provider Active St art: September 20, 2024 Dr. Quincy Ayers MD Other Provider Active S tart: September 20, 2024 Dr. Edie Beckham MD Other Provider Active Start: September 20, 2024 Dr. Rick Marcial MD Other Provider Active Start : September 20, 2024 Dr. Brendan Galo MD Other Provider Active Start: September 20, 2024 Dr. Zachary Jones MD Other Provider Active Start : September 20, 2024 Dr. Giselle Nicholas MD Other Provider Active Star t: September 20, 2024 Dr. Renetta Argueta MD Other Provider Active Sta rt: September 20, 2024 Dr. Lolis West MD Other Provider Active Sta rt: September 20, 2024 Dr. Mateus Antonio MD Other Provider Active Star t: September 20, 2024 Dr. Darrell Karimi MD Other Provider Active St art: September 20, 2024 Dr. Leopoldo Monreal MD Other Provider Active Star t: September 20, 2024 Dr. Ronald Archer DO Other Provider Active St art: September 20, 2024 Dr. Jessica Keys MD Other Provider Active Start: September 20, 2024 Dr. Irene Silva MD Other Provider Active St art: September 20, 2024 Dr. Jurgen Leblanc , Other Provider Active Start: September 20, 2024 Dr. Jonathan Long MD Other Provider Active Star t: September 20, 2024 Dr. Gonzales Castle MD Other Provider Active Sta rt: September 20, 2024 Team Status: Active Member Role Status Dates Dr. Stone Leong DO Emergency Provider Activ e Start: September 21, 2024 Dr. Neymar Xavier MD Primary Care Provider Activ e Start: September 21, 2024 Dr. Zeferino Estrada , Admit Provider Active Start: September 21, 2024 Dr. Zeferino Estrada DO Other Provider Active Start: September 21, 2024 Dr. Marcelino Gracia DO Attending Provider Active Start: September 21, 2024 Dr. Marcelino Gracia DO Other Provider Active Star t: September 21, 2024 Dr. Jason Holland MD Other Provider Active Start: September 21, 2024 Dr. Sameer Rogers MD Other Provider Active Start: September 21, 2024 Dr. Suraj High MD Other Provider Active Star t: September 21, 2024 Dr. Garrett Ambrocio DO Other Provider Active Start : September 21, 2024 Dr. Zeferino Kincaid MD Other Provider Active Sta rt: September 21, 2024 Dr. Lg Perez MD Other Provider Active St art: September 21, 2024 Dr. Quincy Ayers MD Other Provider Active S tart: September 21, 2024 Dr. Edie Beckham MD Other Provider Active Start: September 21, 2024 Dr. Rick Marcial MD Other Provider Active Start : September 21, 2024 Dr. Brendan Galo MD Other Provider Active Start: September 21, 2024 Dr. Zachary Jones MD Other Provider Active Start : September 21, 2024 Dr. Giselle Nicholas MD Other Provider Active Star t: September 21, 2024 Dr. Renetta Argueta MD Other Provider Active Sta rt: September 21, 2024 Dr. Lolis West MD Other Provider Active Sta rt: September 21, 2024 Dr. Mateus Antonio MD Other Provider Active Star t: September 21, 2024 Dr. Darrell Karimi MD Other Provider Active St art: September 21, 2024 Dr. Leopoldo Monreal MD Other Provider Active Star t: September 21, 2024 Dr. Ronald Archer , Other Provider Active St art: September 21, 2024 Dr. Jessica Keys MD Other Provider Active Start: September 21, 2024 Dr. Irene Silva MD Other Provider Active St art: September 21, 2024 Dr. Jurgen Leblanc , Other Provider Active Start: September 21, 2024 Dr. Jonathan Long MD Other Provider Active Star t: September 21, 2024 Dr. Gonzales Castle MD Other Provider Active Sta rt: September 21, 2024 Team Status: Active Member Role Status Dates Dr. Stone Leong DO Emergency Provider Activ e Start: September 21, 2024 Dr. Neymar Xavier MD Primary Care Provider Activ e Start: September 21, 2024 Dr. Zeferino Estrada DO Admit Provider Active Start: September 21, 2024 Dr. Zeferino Estrada DO Other Provider Active Start: September 21, 2024 Dr. Jason Holland MD Other Provider Active Start: September 21, 2024 Dr. Sameer Rogers MD Other Provider Active Start: September 21, 2024 Dr. Suraj High MD Other Provider Active Star t: September 21, 2024 Dr. Garrett Ambrocio DO Attending Provider Active S tart: September 21, 2024 Dr. Garrett Ambrocio DO Other Provider Active Start : September 21, 2024 Dr. Zeferino Kincaid MD Other Provider Active Sta rt: September 21, 2024 Dr. Lg Perez MD Other Provider Active St art: September 21, 2024 Dr. Quincy Ayers MD Other Provider Active S tart: September 21, 2024 Dr. Edie Beckham MD Other Provider Active Start: September 21, 2024 Dr. Rick Marcial MD Other Provider Active Start : September 21, 2024 Dr. Brendan Galo MD Other Provider Active Start: September 21, 2024 Dr. Zachary Jones MD Other Provider Active Start : September 21, 2024 Dr. Giselle Nicholas MD Other Provider Active Star t: September 21, 2024 Dr. Renetta Argueta MD Other Provider Active Sta rt: September 21, 2024 Dr. Lolis West MD Other Provider Active Sta rt: September 21, 2024 Dr. Mtaeus Antonio MD Other Provider Active Star t: September 21, 2024 Dr. Darrell Karimi MD Other Provider Active St art: September 21, 2024 Dr. Leopoldo Monreal MD Other Provider Active Star t: September 21, 2024 Dr. Ronald Archer , DO Other Provider Active St art: September 21, 2024 Dr. Jessica Keys MD Other Provider Active Start: September 21, 2024 Dr. Irene Silva MD Other Provider Active St art: September 21, 2024 Dr. Jurgen Leblanc , DO Other Provider Active Start: September 21, 2024 Dr. Jonathan Long MD Other Provider Active Star t: September 21, 2024 Dr. Gonzales Castle MD Other Provider Active Sta rt: September 21, 2024 Dr. Marcelino Gracia , Other Provider Active Star t: September 21, 2024 Team Status: Active Member Role Status Dates Dr. Stone Leong , Emergency Provider Activ e Start: September 22, 2024 Dr. Neymar Xavier MD Primary Care Provider Activ e Start: September 22, 2024 Dr. Zeferino Estrada , DO Admit Provider Active Start: September 22, 2024 Dr. Zeferino Estrada , Other Provider Active Start: September 22, 2024 Dr. Marcelino Gracia DO Attending Provider Active Start: September 22, 2024 Dr. Marcelino Gracia DO Other Provider Active Star t: September 22, 2024 Alley Cleaner Relationship Specialty Start Date End Date Neymar Xavier MD [address] [place] [address] PCP - General 03/11/19 Neymar Xavier MD [address] [place] [address] PCP - Anthem Medicare Advantage PCP 06/29/21 Alley Cleaner Relationship Specialty Start Date End Date Neymar Xavier MD [address] [place] [address] PCP - General 03/11/19 Neymar Xavier MD [address] [place] [address] PCP - An[employer] Medicare Advantage PCP 06/29/21 Alley Cleaner Relationship Specialty Start Date End Date Neymar Xavier MD [address] [place] [address] PCP - General 03/11/19 Neymar Xavier MD [address] [place] [address] PCP - Anthem Medicare Advantage PCP 06/29/21 Alley Cleaner Relationship Specialty Start Date End Date Neymar Xavier MD [address] [place] [address] PCP - General 03/11/19 Neymar Xavier MD [address] [place] [address] PCP - Anthem Medicare Advantage PCP 06/29/21 Alley Cleaner Relationship Specialty Start Date End Date Neymar Xavier MD [address] [place] [address] PCP - General 03/11/19 Neymar Xavier MD [address] [place] [address] PCP - Anthem Medicare Advantage PCP 06/29/21 Alley Cleaner Relationship Specialty Start Date End Date Neymar Xavier MD [address] [place] [address] PCP - General 03/11/19 Neymar Xavier MD [address] [place] [address] PCP - Anthem Medicare Advantage PCP 06/29/21 Alley Cleaner Relationship Specialty Start Date End Date Neymar Xavier MD [address] [place] [address] PCP - General 03/11/19 Neymar Xavier MD [address] [place] [address] PCP - Anthem Medicare Advantage PCP 06/29/21 Alley Cleaner Relationship Specialty Start Date End Date Neymar Xavier MD [address] [place] [address] PCP - General 03/11/19 Neymar Xavier MD [address] [place] [address] PCP - Anthem Medicare Advantage PCP 06/29/21 Alley Cleaner Relationship Specialty Start Date End Date Neymar Xavier MD [address] [place] [place] [address] PCP - General 03/11/19 Neymar Xavier MD [address] [place] [id number] PCP - An[employer] Medicare Advantage PCP 06/29/21 Team Status: Active Member Role Status Dates Dr. Stone Leong DO Emergency Provider Activ e Start: September 20, 2024 Dr. Neymar Xavier MD Primary Care Provider Activ e Start: September 20, 2024 Dr. Zeferino Estrada DO Admit Provider Active Start: September 20, 2024 Dr. Zeferino Estrada DO Attending Provider Active Start: September 20, 2024 Alley Cleaner Relationship Specialty Start Date End Date Neymar Xavier MD [address] [place] [address] PCP - General 03/11/19 Neymar Xavier MD [address] [place] [address] PCP - Anthem Medicare Advantage PCP 06/29/21 Diann Dumont RN ElectrodynamicistLinderman Machine Operator 09/23/24 Alley Cleaner Relationship Specialty Start Date End Date Neymar Xaiver MD [address] [place] [address] PCP - General 03/11/19 Neymar Xavier MD [address] [place] [address] PCP - Anthem Medicare Advantage PCP 06/29/21 Diann Dumont RN ElectrodynamicistLinderman Machine Operator 09/23/24 Alley Cleaner Relationship Specialty Start Date End Date Neymar Xavier MD [address] [place] [address] PCP - General 03/11/19 Neymar Xavier MD [address] [place] [address] PCP - Anthem Medicare Advantage PCP 06/29/21 Diann Dumont, RN ElectrodynamicistLinderman Machine Operator 09/23/24 Alley Cleaner Relationship Specialty Start Date End Date Neymar Xavier MD [address] [place] [address] PCP - General 03/11/19 Neymar Xavier MD [address] [place] [address] PCP - Anthem Medicare Advantage PCP 06/29/21 Alley Cleaner Relationship Specialty Start Date End Date Neymar Xavier MD [address] [place] [address] PCP - General 03/11/19 Neymar Xavier MD [address] [place] [address] PCP - Anthem Medicare Advantage PCP 06/29/21 Alley Cleaner Relationship Specialty Start Date End Date Neymar Xavier MD [address] [place] [address] PCP - General 03/11/19 Neymar Xavier MD [address] [place] [address] PCP - Anthem Medicare Advantage PCP 06/29/21 Alley Cleaner Relationship Specialty Start Date End Date Neymar Xavier MD [address] [place] [address] PCP General 03/11/19 Neymar Xavier MD [address] [place] [address] PCP - Anthem Medicare Advantage PCP 06/29/21 Alley Cleaner Relationship Specialty Start Date End Date Neymar Xavier MD [address] [place] [address] PCP [facility] 03/11/19 Neymar Xavier MD [address] [place] [address] PCP - An[employer] Medicare Advantage PCP 06/29/21 Goals (unrecognized section and content) Goals may be documented in a n alternate section FOR RECORDS PERTAINING TO PATIENTS WHO ARE OR HAVE BEEN ENROLLED IN A CHEMICAL DEPENDENCY/SUBSTANCEABUSE PROGRAM, SOME INFORMATION MAY BE OMITTED. This clinical summary was aggregated from multiple sources. Caution should be exercised in using it in the provision of clinical care. This summary normalizes information from multiple sources, and as a consequence, information in this document may materially change the coding, format and clinical context of patient data. In addition, data may be omitted in some cases. CLINICAL DECISIONS SHOULD BE BASED ON THE PRIMARY CLINICAL RECORDS. [facility] [employer] [facility]. provides no warranty or guarantee of the accuracy or completeness of information in this document.
[2025-04-19 13:27] VITALS: BMI 30.8
[2025-04-19 13:55] VITALS: BP 108/74; PULSE 76; RESP 16; TEMP 36.5; O2SAT 94
[2025-04-19 14:04] LABS: AST(SGOT) 20 U/L (<=37); Alanine Aminotransfer ALT/SGPT 18 U/L (<=46); Albumin, Serum 4.1 g/dL (3.4-4.8); Alkaline Phosphatase 65 U/L (40-129); Bilirubin, Direct 0.28 mg/dL (0.00-0.30); Globulin 2.8 g/dL (2.2-4.2)
[2025-04-19 14:37] LABS: Vitamin D,25 Hydroxy 39.5 ng/mL (30-100)
--- NOTE | 2025-04-19 14:57 | PCM.HP.STD ---
HPI - General General Date of Admission: 04/19/25 Date of Service: 04/19/25 Chief Complaint: Right hip pain HPI Narrative HATTIE VALDERRAMA, is a 80 M who presents with right hip pain. This is a 80-year-old male with a history of atrial fibrillation who was in his kitchen tending to his puppies where he twisted ever so slightly and felt his right hip gave out. He did not fall and is actually able to brace himself in the kitchen and was able to lower himself to the ground. He presented to the emergency room where it was noted that he had a transverse cervical fracture of the prosthetic component of his right total hip with cephalic migration of the distal fracture fragments. Patient had this hip replacement in 2006 and has been doing well. [ ] [facility] Medical History Overweight (BMI 25.0-29.9) Kidney stones Diabetes Atrial fibrillation Hypertension Home Medications ?Medication ?Instructions ?Recorded ?Last Taken ?Type atorvastatin 40 mg tablet 40 mg PO QHS CHOLESTEROL 05/20/22 04/18/25 History glimepiride 2 mg tablet 2 mg PO DAILY DIABETES 05/20/22 04/18/25 History losartan 50 mg tablet 100 mg PO DAILY BLOOD PRESSURE 05/20/22 04/18/25 History metformin 500 mg tablet 1,000 mg PO BID DIABETES 05/20/22 04/19/25 History metoprolol succinate 100 mg 100 mg PO DAILY BLOOD PRESSURE AND 05/20/22 04/19/25 History tablet,extended release 24 hr HEART RATE warfarin 2 mg tablet 4 mg PO [facility] blood clots 05/20/22 04/18/25 History warfarin 2 mg tablet 6 mg PO QMWF blood clots 05/20/22 04/17/25 History amlodipine 5 mg tablet 5 mg PO DAILY high blood pressure 04/19/25 04/18/25 History aspirin 81 mg tablet,delayed 81 mg PO DAILY low dose 04/19/25 04/18/25 History release (Adult Low Dose Aspirin) magnesium 500 mg tablet 15 mg PO DAILY for low mag 04/19/25 04/18/25 History Allergy/AdvReac Type Severity Reaction Status Date / Time No Known Allergies Allergy Verified 09/20/24 17:36 Family History (Updated 04/19/25 @ 14:[address] Marcelino Gracia DO) Other Heart disease Surgical History History of hip replacement History of knee replacement Social History Smoking Status: Former smoker ROS ROS Narrative All review of systems were negative except as mentioned above in the history of present illness and the other review of systems. Vital Signs Vital Signs Vital Signs: 04/19/25 08:20 04/19/25 11:35 04/19/25 12:15 Temperature 36.5 C L 36.6 C Temperature Source Oral Pulse Rate 94 74 78 Respiratory Rate 18 16 16 Respiratory Effort Respiratory Depth Respiratory Pattern Blood Pressure 125/80 H 111/68 115/78 Blood Pressure Mean 95 82 90 Blood Pressure Source Blood Pressure Position Pulse Ox 98 99 98 Oxygen Delivery Method Room Air 04/19/25 13:55 04/19/25 13:59 Temperature 36.5 C L Temperature Source Oral Pulse Rate 76 Respiratory Rate 16 Respiratory Effort Non-Labored Respiratory Depth Normal Respiratory Pattern Normal Blood Pressure 108/74 Blood Pressure Mean 85 Blood Pressure Source Monitor Blood Pressure Position Supine Pulse Ox 94 Oxygen Delivery Method Room Air Room Air Weight Weight: 103.1 kg Body Mass Index (BMI) 30.8 Physical Exam Const alert and no apparent distress Constitutional Narrative: Comfortable. Nontoxic. HEENT normocephalic and head/scalp atraumatic Resp normal respiratory effort, no retractions, no use of accessory muscles and clear to auscultation bilaterally Cardio regular rate, regular rhythm, S1 normal heart sound and S2 normal heart sound GI normal to inspection, nondistended, normoactive bowel sounds, soft to palpation, non-tender and non-distended Neuro Sensorium / Orientation: awake and alert Psych affect normal Results Lab / Micro Data 04/19/25 09:50 04/19/25 09:50 Labs: Laboratory Results - last 24 hr 04/19/25 09:50: WBC 7.5, RBC 3.89 L, Hgb 12.1 L, Hct 36.9 L, MCV 94.9 H, MCH 31.1, MCHC 32.8, RDW Std Deviation 47.1 H, RDW Coeff of Risa 13.6, Plt Count 241, MPV 10.4, Immature Gran % (Auto) 0.500, Neut % (Auto) 73.8 H, Lymph % (Auto) 15.7 L, Hamilton % (Auto) 8.1, Eos % (Auto) 1.2, Baso % (Auto) 0.7, Absolute Neuts (auto) 5.5, Absolute Lymphs (auto) 1.18, Nucleated RBC % 0, PT 29.2 H, INR 2.7, Sodium 140, Potassium 4.3, Chloride 103, Carbon Dioxide 29.6, Anion Gap 7, BUN 16, Creatinine 0.87, Estim Creat Clear Calc 86.79, Est GFR (MDRD) Non-Af 88, BUN/Creatinine Ratio 18.3, Glucose 221 H, Calcium 9.2, Total Bilirubin 0.59, Direct Bilirubin 0.28, AST 20, ALT 18, Alkaline Phosphatase 65, Total Protein 6.9, Albumin 4.1, Globulin 2.8, Vitamin D 25-Hydroxy 39.5 Imaging Radiology Impression Hip/Pelvis X-Ray 04/19/25 08:23 IMPRESSION: Transverse cervical fracture of the prosthetic component of the right total hip with cephalic migration of the distal fracture fragment. Reading Location: [facility] Chest X-Ray 04/19/25 09:39 IMPRESSION: There is cardiomegaly without overt CHF. Reading Location: [facility] Assessment & Plan Assessment/Plan (1) Prosthetic hip implant failure: PLAN: Atraumatic as patient just twisting in his kitchen. Dr. Bradley, orthopedics, was contacted and will see the patient and tentative plan is for the patient have surgery on the . In meantime, patient will be on bedrest, pain control as he needs it. After surgery, therapy evaluations and determine disposition needs thereafter. (2) Coagulopathy: PLAN: Patient appropriately anticoagulated with warfarin for atrial fibrillation. With his upcoming surgery, patient received 5 mg of vitamin K in the emergency room. Repeat INR pending. PLAN: Plan Diabetes mellitus type 2: Continue with glimepiride and metformin postsurgery. Atrial fibrillation: Warfarin currently on hold but to be resumed after surgery continue with metoprolol succinate. VTE prophylaxis with SCDs for now CODE STATUS: Addressed with the patient. Patient wishes to be full code. Charges/Coding Visit Charges Inpatient E&M: 74401 Init Hosp L2
[2025-04-19 15:34] LABS: Prothrombin Time (Protime)PT. 28.7 SECONDS (11.7-14.9)
[2025-04-19 17:31] VITALS: BP 131/73; PULSE 90; RESP 16; TEMP 37.1; O2SAT 94
[2025-04-19 21:42] VITALS: BP 134/91; PULSE 107; RESP 19; TEMP 36.9; O2SAT 100
[2025-04-19] MEDS: Senna/Docusate Sodium 1 Tablet 2 TABLET PO (21:46)
[2025-04-19] MEDS: 0.9% Saline Lock 10 ML Syringe IV (21:47)
[2025-04-20] VITALS (18 sets, daily range): BP systolic 99–144; BP diastolic 60–78; PULSE 79–110; RESP 14–19; TEMP 36.5–37.3; O2SAT 91–98; BMI 30.1
[2025-04-20] MEDS: 0.9% Saline Lock 10 ML Syringe IV (03:58)
[2025-04-20 04:35] LABS: Hematocrit 36.2 % (40-54); Hemoglobin 12.4 g/dL (13.0-16.5); Immature Granulocytes Count 0.020 X10^3/uL (0.0-0.0); Mean Corp Hgb Conc 34.3 g/dL (32-36); Mean Corpuscular Volume 94.3 fL (80-94); Mean Platelet Vol. 10.9 fl (6.2-12.0); NRBC Flagged by Analyzer 0 % (0-5); Platelet Count 243 K/mm3 (150-450); RBC Distribution Width CV 13.4 % (11.6-14.6); RBC Distribution Width SD 46.4 fl (35.1-43.9); Red Blood Count 3.84 M/mm3 (4.6-6.2); White Blood Count 10.2 K/mm3 (4.4-11.0)
[2025-04-20 04:50] LABS: Prothrombin Time (Protime)PT. 19.3 SECONDS (11.7-14.9)
[2025-04-20 05:03] LABS: Anion Gap 11 (5-15); BUN 15 mg/dL (4-19); BUN/Creat Ratio 19.2 RATIO (10-20); Calcium,Total 9.1 mg/dL (7.6-11.0); Carbon Dioxide 25.0 mmol/L (21.0-32.0); Chloride 104 mmol/L (98-108); Estimated Creatinine Clearance 92.98 ml/min (50-250); Glucose 138 mg/dL (70-99); Potassium 4.2 mmol/L (3.3-5.1)
[2025-04-20] MEDS: Metoprolol(XL)Succ 100 MG Tablet PO (08:25)
--- NOTE | 2025-04-20 10:56 | CASEMGMT ---
Social Work Primary Care Doctor: Dr. De Leon Speciality doctors: none Insurance: [employer] Pharmacy: Patient utilizes [facility] in [place]: and son. He reported one of his children 5 years ago. Living Situation: Patient lives at home with his in a mobile home with a ramp to enter. ADL's/Prior level of functioning: independent Transportation: Patient still drives. DME: lift chair, cane, FWW, CPAP at night USP/home health history: [facility] for 5 days Mental Health: none Substance abuse history: none Assessment: Patient lives at home with his . His son who lives [place] helps if needed. Patient wants to discharge home. PLAN: To be determined. Patient wants to discharge home. NASRA Raphael
[2025-04-20] MEDS: Lactated Ringers 1,000 ML 15 ML IV (13:14)
--- NOTE | 2025-04-20 13:37 | PCM.PRE.AN2 ---
ASA Classification* ASA Classification ASA Classification: 2 Assessment & Plan Anesthesia* Anesthesia Assessment Anesthesia Assessment: Discussed sedation and/or anesthesia options, risks, benefits, and alternatives with patient/parents/legal guardian/POA. Questions invited. The patient/parents/legal guardian/POA seems to understand and agrees to proceed with anesthesia plan. Reviewed the physical assessment, medical history, allergy history and patient home medications list prior to surgery/procedure/anesthetic and documented any changes. Performed airway and anesthesia risk assessments. Anesthesia Type Anesthesia Type: General History Source History Obtained from:: Patient and Chart Anesthesia Focused Assessment* Temperature: 99.1 F Pulse Rate: 79 Blood Pressure: 126/72 Respiratory Rate: 16 Pulse Ox: 92 Oxygen Delivery Method: Room Air Airway Assessment Mouth opens: >3 cm Mallampati Score: II Teeth Condition: Missing (No upper teeth. Present few teeth lower jaw.) Neck Range of motion (ROM): Full ROM Labs Anesthesia Preop lab: CBC WBC, (4.4-11.0) 10.2 K/mm3 Today, 03:48 RBC, (4.6-6.2) 3.84 M/mm3 L Today, 03:48 Hgb, (13.0-16.5) 12.4 g/dL L Today, 03:48 Hct, (40-54) 36.2 % L Today, 03:48 Plt Count, (150-450) 243 K/mm3 Today, 03:48 CHEMISTRY Potassium, (3.3-5.1) 4.2 mmol/L Today, 03:48 Sodium, (133-145) 140 mmol/L Today, 03:48 Magnesium, (1.5-2.2) 1.7 mg/dL 09/20/24, 20:35 Phosphorus, (2.7-4.5) 2.1 mg/dL L 09/22/24, 05:53 BUN, (4-19) 15 mg/dL Today, 03:48 Creatinine, (0.70-1.20) 0.77 mg/dL Today, 03:48 Glucose, (70-99) 138 mg/dL H Today, 03:48 POC Glucose, (74-106) 143 mg/dL H Today, 12:05 TSH, (0.300-4.200) 0.328 uIU/mL 09/20/24, 21:43 COAG PT, (11.7-14.9) 19.3 SECONDS H Today, 03:48 Pre-Assessment Diagnosis/Proposed Procedure Planned Operative Procedure(s): Right hip posterior revision total hip Anesthesia History Anesthesia History - 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 When Was Last Pacemaker Check QUESTION #4 FULL TEXT: You/Your Family Experience fever (hyperthermia) with Anesthesia Last Oral Intake Last Oral intake: Last Oral Intake NPO since 23:00 04/20/25 13:07 Meds taken in AM with sips of Yes 04/20/25 13:07 water? Meds patient instructed to see med list 04/20/25 13:07 take am of surgery PONV PONV - residential mortgage underwriter: PONV - residential mortgage underwriter Female HX of Motion Sickness HX of N/V After Surgery Non-Smoker Duration of Surgery greater than 60 minutes Number of Risk Factors PONV Score Height & Weight Height & Weight: Anesthesia: Height & Weight Height 6 ft 04/20/25 13:07 Weight: 100.7 kg 04/20/25 13:07 Body Mass Index (BMI) 30.1 04/20/25 13:07 Respiratory Assessment Respiratory Assessment - residential mortgage underwriter: Respiratory Tract Infection Hx - residential mortgage underwriter Hx Respiratory Tract Infection STOP Sleep Apnea STOP Sleep Apnea - residential mortgage underwriter: STOP Sleep Apnea - residential mortgage underwriter Hx Hypertension Yes 04/19/25 13:36 Hx Sleep Apnea Yes 04/19/25 13:36 CPAP Yes 04/19/25 13:36 BIPAP No 04/19/25 13:36 Do you snore loudly (louder than talking or can be heard Do you often feel tired/ fatigued/ sleepy during daytime? Has anyone observed you stop breathing during sleep? STOP Results Positive 04/19/25 13:36 QUESTION #5 FULL TEXT : Do you snore loudly (louder than talking or can be heard through closed doors)? Tobacco Use History Tobacco Use History - residential mortgage underwriter: Tobacco Use History - residential mortgage underwriter Tobacco Use Smoking Status Former smoker 04/19/25 13:36 Hx Tobacco Use No 04/19/25 13:36 Years Smoking Packs Smoked per Day Smoking Cessation Date was No - quit smoking greater 04/19/25 13:36 within the last 15 years than 15 years ago Hx Smoking Cessation Date 06/29/79 04/19/25 13:36 Hx Smoking Cessation Counseling Hematologic Medial History Hematologic Hx - residential mortgage underwriter: Hematologic Medical Hx - sleep tech Hx of Blood Transfusion No 04/19/25 13:36 Hx of Transfusion in last 3 No 04/19/25 13:36 Months Date of Last Transfusion (if within last 3 months) Ever experience any problems No 04/19/25 13:36 with transfusion(s)? Specify any problems Hx of Preganancy in last 3 N/A 04/19/25 13:36 Months Nurse Filling Out Transfusion KGLAZIER 04/19/25 13:36 & Questions: Date: 04/19/25 04/19/25 13:36 Time: 13:38 04/19/25 13:36 Patient unable to answer at this time (ie. confused, unrespo /Reproduction History /Reproductive History - residential mortgage underwriter: /Reproductive Hx- residential mortgage underwriter Hx Now Gestational Age (in weeks): EDC: Hx Hx Para Hx Section SAB Active Medications Active Medications: Current Medications Generic Name Dose Route Start Last Admin Trade Name Freq PRN Reason Stop Dose Admin Acetaminophen 650 mg 04/19/25 12:50 04/19/25 21:51 Acetaminophen 325 Mg Tablet PO 650 mg Q6H PRN PRN Administration Pain 1-10 Or Fever >100.7 Atorvastatin Calcium 40 mg 04/19/25 22:00 04/19/25 21:46 Atorvastatin Calcium 40 Mg Tablet PO 40 mg QHS LO Administration Glucagon 1 mg 04/19/25 12:50 Glucagon 1 Mg/Ml Syringe IM X1 PRN HYPOGLYCEMIA Protocol Guaifenesin 1,200 mg 04/20/25 22:00 Guaifenesin 1,200 Mg Tablet PO BID LO Dextrose 250 mls @ 0 mls/hr 04/19/25 12:50 Dextrose 10%-Water IV .Q0M PRN HYPOGLYCEMIA Protocol As Directed Sodium Chloride 250 mls @ 15 mls/hr 04/19/25 13:36 IV .[id number] PRN Saline Flush Sodium Chloride 250 mls @ 15 mls/hr 04/19/25 13:36 IV .[id number] PRN Additional IVPB Infusion Sodium Chloride 250 mls @ 15 mls/hr 04/20/25 10:02 IV .[id number] PRN Saline Flush Sodium Chloride 250 mls @ 15 mls/hr 04/20/25 10:02 IV .[id number] PRN Additional IVPB Infusion Lactated Ringer's 1,000 mls @ 15 mls/hr 04/20/25 13:00 04/20/25 13:14 IV 15 mls/hr .Q48H LO Administration Insulin Human Lispro 0 unit 04/19/25 16:00 04/20/25 12:53 Insulin Lispro 100 Unit/Ml Insuln.Pen SC Not Given ACHS LO Protocol Losartan Potassium 100 mg 04/20/25 10:00 04/20/25 08:25 Losartan Potassium 100 Mg Tablet PO 100 mg DAILY LO Administration Protocol Metformin HCl 1,000 mg 04/20/25 08:00 04/20/25 08:28 Metformin Hcl 1,000 Mg Tablet PO Not Given BIDCM LO Metoprolol Succinate 100 mg 04/20/25 10:00 04/20/25 08:25 Metoprolol(Xl)Succ 100 Mg Tablet PO 100 mg DAILY LO Administration Protocol Morphine Sulfate 2 - 4 mg 04/19/25 12:50 04/20/25 03:58 Morphine 2 Mg/Ml Syringe IV 2 mg Q3H PRN PRN Administration Pain Score 6-10 Ondansetron HCl 4 mg 04/19/25 12:50 Ondansetron 4 Mg/2 Ml Vial IV Q8H PRN PRN NAUSEA/VOMITING Oxycodone HCl 5 mg 04/19/25 12:50 04/19/25 21:51 Oxycodone 5 Mg Tablet PO 5 mg Q4H PRN PRN Administration Pain Score 4-10 Senna/Docusate Sodium 2 tablet 04/19/25 22:00 04/20/25 08:25 Senna/Docusate Sodium 1 Tablet PO Not Given BID LO Sodium Chloride 10 - 40 ml 04/19/25 13:36 04/20/25 03:58 0.9% Saline Lock 10 Ml Syringe IV 10 ml UD PRN Administration SALINE FLUSH Sodium Chloride 10 - 40 ml 04/20/25 10:02 0.9% Saline Lock 10 Ml Syringe IV UD PRN SALINE FLUSH [facility] Medical History Overweight (BMI 25.0-29.9) Kidney stones Diabetes Atrial fibrillation Hypertension Home Medications ?Medication ?Instructions ?Recorded ?Last Taken ?Type atorvastatin 40 mg tablet 40 mg PO QHS CHOLESTEROL 05/20/22 04/18/25 History glimepiride 2 mg tablet 2 mg PO DAILY DIABETES 05/20/22 04/18/25 History losartan 50 mg tablet 100 mg PO DAILY BLOOD PRESSURE 05/20/22 04/18/25 History metformin 500 mg tablet 1,000 mg PO BID DIABETES 05/20/22 04/19/25 History metoprolol succinate 100 mg 100 mg PO DAILY BLOOD PRESSURE AND 05/20/22 04/19/25 History tablet,extended release 24 hr HEART RATE warfarin 2 mg tablet 4 mg PO SUTUTHSA blood clots 05/20/22 04/18/25 History warfarin 2 mg tablet 6 mg PO QMWF blood clots 05/20/22 04/17/25 History amlodipine 5 mg tablet 5 mg PO DAILY high blood pressure 04/19/25 04/18/25 History aspirin 81 mg tablet,delayed 81 mg PO DAILY low dose 04/19/25 04/18/25 History release (Adult Low Dose Aspirin) magnesium 500 mg tablet 15 mg PO DAILY for low mag 04/19/25 04/18/25 History Allergy/AdvReac Type Severity Reaction Status Date / Time No Known Allergies Allergy Verified 04/20/25 13:06 Family History Other Heart disease Surgical History History of hip replacement History of knee replacement Social History Smoking Status: Former smoker Review of Systems (Anesthesia) ROS Narrative System reviewed and no additional complaints, except as documented.
--- NOTE | 2025-04-20 13:39 | CONS.ORTHO ---
HPI Consult Data Date of Consult: 04/20/25 HPI Narrative Reason for Consultation: Right hip pain HPI Narrative: HATTIE VALDERRAMA, is a 80 M who presents today with right hip pain and an inability to bear weight on the right lower extremity. Patient has a history of a right total replacement done in 2006 at an outside facility. Patient reports no complications with the surgery. He said no issues with the with the surgery and no antecedent pain leading up to yesterday's events. Patient notes he has not followed up with his operating surgeon and quite some time. Patient reports 10 out of 10 pain today worse with motion better with immobilization. Patient's pain is located in the groin and thigh on the right. Patient was leaning over in his kitchen did berry picker some training pads for his dog when he felt his hip give out. He fell to the ground and was unable to bear weight at that time. 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 Denies any associated numbness and tingling. Patient does take Coumadin for his atrial fibrillation. On his admission patient had INR of 2.7 which has been reversed to 1.6. Patient does have diabetes and his current hemoglobin A1c is 6.7 [facility], [facility] Medical History Overweight (BMI 25.0-29.9) Kidney stones Diabetes Atrial fibrillation Hypertension Home Medications ?Medication ?Instructions ?Recorded ?Last Taken ?Type atorvastatin 40 mg tablet 40 mg PO QHS CHOLESTEROL 05/20/22 04/18/25 History glimepiride 2 mg tablet 2 mg PO DAILY DIABETES 05/20/22 04/18/25 History losartan 50 mg tablet 100 mg PO DAILY BLOOD PRESSURE 05/20/22 04/18/25 History metformin 500 mg tablet 1,000 mg PO BID DIABETES 05/20/22 04/19/25 History metoprolol succinate 100 mg 100 mg PO DAILY BLOOD PRESSURE AND 05/20/22 04/19/25 History tablet,extended release 24 hr HEART RATE warfarin 2 mg tablet 4 mg PO SUTUTHSA blood clots 05/20/22 04/18/25 History warfarin 2 mg tablet 6 mg PO QMWF blood clots 05/20/22 04/17/25 History amlodipine 5 mg tablet 5 mg PO DAILY high blood pressure 04/19/25 04/18/25 History aspirin 81 mg tablet,delayed 81 mg PO DAILY low dose 04/19/25 04/18/25 History release (Adult Low Dose Aspirin) magnesium 500 mg tablet 15 mg PO DAILY for low mag 04/19/25 04/18/25 History Allergy/AdvReac Type Severity Reaction Status Date / Time No Known Allergies Allergy Verified 04/20/25 13:06 Family History Other Heart disease Surgical History History of hip replacement History of knee replacement Social History Smoking Status: Former smoker ROS ROS Narrative 14 point review systems outside of what is mentioned in the HPI is negative. Vital Signs Vital Signs Vital Signs: 04/19/25 13:55 04/19/25 13:59 04/19/25 17:31 Temperature 97.7 F L 98.7 F Temperature Source Oral Oral Pulse Rate 76 90 Pulse Strength Respiratory Rate 16 16 Respiratory Effort Non-Labored Respiratory Depth Normal Respiratory Pattern Normal Blood Pressure 108/74 131/73 H Blood Pressure Mean 85 92 Blood Pressure Source Monitor Blood Pressure Position Supine Blood Pressure Location Pulse Ox 94 94 Oxygen Delivery Method Room Air Room Air Room Air 04/19/25 19:38 04/19/25 19:53 04/19/25 21:42 Temperature 98.4 F Temperature Source Oral Pulse Rate 107 H Pulse Strength Normal (2+) Respiratory Rate 19 H Respiratory Effort Non-Labored Respiratory Depth Normal Respiratory Pattern Normal Blood Pressure 134/91 H Blood Pressure Mean 105 Blood Pressure Source Monitor Blood Pressure Position Supine Blood Pressure Location Right Arm Pulse Ox 100 Oxygen Delivery Method Room Air Room Air 04/20/25 03:00 04/20/25 03:56 04/20/25 04:26 Temperature 98.0 F Temperature Source Oral Pulse Rate 86 86 Pulse Strength Respiratory Rate 19 H Respiratory Effort Non-Labored Respiratory Depth Normal Respiratory Pattern Normal Blood Pressure 119/66 Blood Pressure Mean 83 Blood Pressure Source Blood Pressure Position Blood Pressure Location Pulse Ox 93 Oxygen Delivery Method Room Air Room Air 04/20/25 08:16 04/20/25 08:22 04/20/25 08:25 Temperature 98.2 F Temperature Source Oral Pulse Rate 93 93 Pulse Strength Respiratory Rate 18 Respiratory Effort Non-Labored Respiratory Depth Normal Respiratory Pattern Normal Blood Pressure 111/75 Blood Pressure Mean 87 Blood Pressure Source Blood Pressure Position Blood Pressure Location Pulse Ox 91 Oxygen Delivery Method Room Air Room Air 04/20/25 13:07 Temperature 99.1 F Temperature Source Temporal Pulse Rate 79 Pulse Strength Respiratory Rate 16 Respiratory Effort Respiratory Depth Respiratory Pattern Blood Pressure 126/72 H Blood Pressure Mean 90 Blood Pressure Source Monitor Blood Pressure Position Supine Blood Pressure Location Left Arm Pulse Ox 92 Oxygen Delivery Method Room Air Weight Weight: 222 lb 0.088 oz Body Mass Index (BMI) 30.1 Physical Exam Const alert and oriented x3 General Appearance: cooperative HEENT normocephalic, head/scalp atraumatic and dentition normal Eyes PERRL Neck no JVD Resp normal respiratory effort Cardio Cardio Narrative: Irregular distal pulses GI non-distended Extremity Extremity Narrative: Right lower extremity: Previous incision is clean dry and intact. Leg is shortened and externally rotated. Thigh is without significant swelling. Tenderness palpate around the thigh. No redness of the incision. Neurovasc intact distally with positive dorsiflexion EHL plantarflexion. Strength testing deferred secondary to pain. Positive sensation saphenous, sural, superficial peroneal, deep peroneal and tibial nerve distributions distally. Palpable DP pulses. Skin Skin Narrative: Previous incision is clean dry and intact Neuro CN's II-XII intact bilaterally Gait (Neuro): Negative for normal gait Psych affect normal Medical Records Data Attestation: I reviewed the patient's medical records Lab / Micro Data 04/20/25 03:48 04/20/25 03:48 Labs: Laboratory Results - last 24 hr 04/19/25 09:50: Total Bilirubin 0.59, Direct Bilirubin 0.28, AST 20, ALT 18, Alkaline Phosphatase 65, Total Protein 6.9, Albumin 4.1, Globulin 2.8, Vitamin D 25-Hydroxy 39.5 04/19/25 14:36: PT 28.7 H, INR 2.6 04/19/25 17:23: POC Glucose 151 H 04/19/25 21:57: POC Glucose 122 H 04/20/25 03:48: WBC 10.2, RBC 3.84 L, Hgb 12.4 L, Hct 36.2 L, MCV 94.3 H, MCH 32.3 H, MCHC 34.3, RDW Std Deviation 46.4 H, RDW Coeff of Risa 13.4, Plt Count 243, MPV 10.9, Immature Gran % (Auto) 0.200, Neut % (Auto) 69.5, Lymph % (Auto) 19.0, [place] % (Auto) 9.7, Eos % (Auto) 1.2, Baso % (Auto) 0.4, Absolute Neuts (auto) 7.1, Absolute Lymphs (auto) 1.94, Nucleated RBC % 0, PT 19.3 H, INR 1.6, Sodium 140, Potassium 4.2, Chloride 104, Carbon Dioxide 25.0, Anion Gap 11, BUN 15, Creatinine 0.77, Estim Creat Clear Calc 92.98, Est GFR (MDRD) Non-Af 91, BUN/Creatinine Ratio 19.2, Glucose 138 H, Hemoglobin A1c 6.7 H, Calcium 9.1, Blood Type O POSITIVE, Antibody Screen NEGATIVE 04/20/25 07:02: POC Glucose 131 H 04/20/25 12:05: POC Glucose 143 H Imaging Right hip films were reviewed. Patient has previous right total replacement with dissociation of femoral head and femoral component trunnion. Acetabular component appears to be appropriately aligned. There is erosion of the femoral trunnion. There is osteolysis in the greater trochanteric area of the femur with hypodense radiograph material likely consistent with metallic debris. Patient does have a history of questionable lytic bone lesion on previous CT scan. I did review it appears to be a periarticular cyst in relation to his osteoarthritis. Repeat CT scan did not show further concerns. Assessment & Plan Assessment/Plan (1) Prosthetic hip implant failure: PLAN: Patient has a previous Accolade 1 Hazel femoral implant with dissociation of the femoral head and trunnion. I explained to the patient this is a known complication with this implant. Unfortunately the femoral stem is not salvageable. There may be internal damage to the acetabular component. We will examine intraoperatively. We did review available treatment options which include operative and nonoperative intervention. Based on patient's health and overall activity status I did not recommend nonoperative treatment. Operative treatment with revision of the femoral component as well as acetabular component to a dual mobility liner was recommended. Risks and benefits of the procedure were discussed the patient including but not limited to blood loss, DVTs, possible transfusion, PEs, neurovascular damage, leg length discrepancies, dislocations, intraoperative and postoperative fractures and general risk of anesthesia including loss of life. We also discussed the potential need for an osteotomy depending on how removal of the implants proceeds. Patient demonstrates understanding his is at bedside also went over the risks and procedure with the family all parties are agreeable to proceed. Antibiotics are on-call to the operating room. Patient is currently NPO. Will proceed with surgery at this time. Patient's INR has been adequately addressed.
[2025-04-20] MEDS: Cefazolin 1 GM/5 ML Vial 2 GM IV (14:20)
--- NOTE | 2025-04-20 14:23 | PCM.PN.HOSP ---
Reason for Visit Chief Complaint: Right hip pain Subjective Subjective Feeling okay. Waiting for surgery. Objective Data Objective Data Vital Signs: Vital Signs Temp Pulse Resp BP Pulse Ox O2 Del Method 37.3 C 79 16 126/72 H 92 Room Air 04/20/25 13:39 04/20/25 13:39 04/20/25 13:39 04/20/25 13:39 04/20/25 13:39 04/20/25 13:39 Oxygen Delivery Method Room Air Weight: 100.7 kg Body Mass Index (BMI) 30.1 Intake & Output: Intake and Output for Last 24 Hours 04/18/25 04/19/25 04/20/25 23:59 23:59 23:59 Output Total 750 / 750 Balance -750 / -750 Lab / Micro Data 04/20/25 03:48 04/20/25 03:48 Labs: Laboratory Results - last 24 hr 04/19/25 09:50: Vitamin D 25-Hydroxy 39.5 04/19/25 14:36: PT 28.7 H, INR 2.6 04/19/25 17:23: POC Glucose 151 H 04/19/25 21:57: POC Glucose 122 H 04/20/25 03:48: WBC 10.2, RBC 3.84 L, Hgb 12.4 L, Hct 36.2 L, MCV 94.3 H, MCH 32.3 H, MCHC 34.3, RDW Std Deviation 46.4 H, RDW Coeff of Risa 13.4, Plt Count 243, MPV 10.9, Immature Gran % (Auto) 0.200, Neut % (Auto) 69.5, Lymph % (Auto) 19.0, [place] % (Auto) 9.7, Eos % (Auto) 1.2, Baso % (Auto) 0.4, Absolute Neuts (auto) 7.1, Absolute Lymphs (auto) 1.94, Nucleated RBC % 0, PT 19.3 H, INR 1.6, Sodium 140, Potassium 4.2, Chloride 104, Carbon Dioxide 25.0, Anion Gap 11, BUN 15, Creatinine 0.77, Estim Creat Clear Calc 92.98, Est GFR (MDRD) Non-Af 91, BUN/Creatinine Ratio 19.2, Glucose 138 H, Hemoglobin A1c 6.7 H, Calcium 9.1, Blood Type O POSITIVE, Antibody Screen NEGATIVE 04/20/25 07:02: POC Glucose 131 H 04/20/25 12:05: POC Glucose 143 H Physical Exam Const alert and no apparent distress Constitutional Narrative: Resting comfortably in bed HEENT head/scalp atraumatic and moist oral mucous membranes Resp normal respiratory effort and no retractions Assessment & Plan Assessment/Plan (1) Prosthetic hip implant failure: PLAN: Atraumatic as patient just twisting in his kitchen. Dr. Bradley, orthopedics, was contacted and will see the patient and tentative plan is for the patient have surgery on the . In meantime, patient will be on bedrest, pain control as he needs it. After surgery, therapy evaluations and determine disposition needs thereafter. (2) Coagulopathy: PLAN: Patient appropriately anticoagulated with warfarin for atrial fibrillation. With his upcoming surgery, patient received 5 mg of vitamin K in the emergency room. Repeat INR pending. (3) Lytic bone lesions on xray: PLAN: Noted on chest CT from September 20 of this year in his right scapula. Patient had a CAT scan of his chest abdomen pelvis the next day on the that showed no report of that lytic lesion and no metastatic focus or anything in that nature. It was instructed the patient follow-up with further imaging in 6 months time but patient never did so. Discussed with the patient that we can reevaluate that why he is here. Given his oncoming surgery this afternoon we will look to having that done tomorrow. PLAN: Plan Diabetes mellitus type 2: Continue with glimepiride and metformin postsurgery. Atrial fibrillation: Warfarin currently on hold but to be resumed after surgery continue with metoprolol succinate. VTE prophylaxis with SCDs for now CODE STATUS: Addressed with the patient. Patient wishes to be full code. Charges/Coding Visit Charges Inpatient E&M: 70978 Subs Hosp L2
[2025-04-20] MEDS: Lidocaine 1% (5 ml sdv) 5 ML Vial 10 ML IV (14:24)
[2025-04-20] MEDS: Cefazolin 2 GM in 0.9% Normal Saline (100mL Bag) 100 ML IV (14:25)
[2025-04-20] MEDS: Lactated Ringers 2,000 ML 2000 ML IV (15:20)
[2025-04-20] MEDS: fentaNYL 100 MCG/2 ML Ampul 200 MCG IV (15:33)
--- NOTE | 2025-04-20 15:49 | CHAPLAIN ---
Type of Pastoral Visit ___ Initial Visit ___ Follow-up Visit ___ On-call Visit ___ General Patient Visit ___ Spiritual Assessment ___ Family Conference ___ Bereavement ___ Rapid Response ___ Code Blue ___ Other (describe below) Pastoral Care Referral From ___ Patient ___ Family ___ Nurse ___ Physician ___ Wiper Blender ___ Student Specialist ___ Other (describe below) Sacrament/Intervention ___ Active listening ___ Anointing ___ Adventist ___ Bereavement ___ Communion ___ Eleonora exploration ___ ___ Life review ___ Prayer ___ Reconciliation ___ Sacrament of Sick ___ Supportive presence ___ Wedding ___ Other (describe below) Pastoral Comments patient was out of the room presumably for surgery; left a calling card
[2025-04-20] MEDS: JPS (Morphine 10mg/ml) OPERA.SITE (16:40)
[2025-04-20] MEDS: TXA 2000mg in NS 100ml (Placed in Wound) OPERA.SITE (16:40)
--- NOTE | 2025-04-20 16:51 | PCM.OPRPT ---
Operative Report (Standard) Operative Information Date of Procedure: 04/20/25 Pre-Operative Diagnosis: Failed prosthesis right total hip replacement, trunnion dissociation Post-Operative Diagnosis: Failed prosthesis right total hip replacement, trunnion dissociation Surgery/Procedure Performed: Revision both components right total hip replacement customer assistant: Yes Skill Training Program Coordinator: Arcenio Acosta Tasks completed by first press operator: Other (During the course of the procedure the physician staff climate scientist (PE) played a vital role. Their intimate knowledge of my steps in the procedure aided in safe and expedient completion of the procedure. The PE played a vital rolls in positioning particularly in obtaining the appropriate positioning of the) Additional dietary assistant?: No Type of Anesthesia: General RN Documented Start/Stop Times: Operation Date: 04/20/25 14:00 Case Time Into Pre-Op 04/20/25 13:06 Out of Pre-Op 04/20/25 14:12 Anesthesia Start 04/20/25 14:16 Into Room 04/20/25 14:16 Procedure Start 04/20/25 14:56 Procedure Start Time: 14:56 Procedure Stop Time: 17:09 Select all DRAINS/GRAFTS/IMPLANTS that apply: Prosthetic device Prosthetic device details: See body of operative report Special Medications: 2 g Ancef, 2 g TXA lavage Estimated Blood Loss: 250 mL Fluids Replaced: 2000 mL crystalloid Specimen collected: No Description of surgery: Implants: 1. Hazel MDM cobalt-chromium acetabular liner F 2. [place] MDM X3 polyethylene liner 46F 3. Hazel cobalt-chromium 28 mm +8 mm L fit V40 femoral head 4. Hazel mormonism modular cone body 25 mm +10 mm 5. Hazel mormonism modular conical hip stem 115 mm x 18 mm On the date of the procedure patient was seen and evaluated in the preoperative area. Consultation was performed with establishment of treatment plan as well as associated risk benefits. Patient demonstrated understanding. Family was also at bedside and all parties wish to proceed. Right hip was marked in the preoperative area and patient was taken back to the operating room and. Once in the operating room patient was transferred to table in the supine position and anesthesia assumed control of the C-spine and airway and remained controlled throughout the remainder of the procedure. Anesthesia anesthetized the patient and after appropriate anesthetization patient was placed in a lateral decubitus position with the right hip in the air with the previous incision visible. Axillary roll was placed. Patient was secured to the bed using the pegboard. Once patient was secured and all bony prominences were identified well-padded the right lower extremity was then prepped in a sterile fashion while the surgeon scrubbed. Upon reentering the room the right lower extremity was then draped in a standard orthopedic fashion incision was marked out and timeout was called. Upon agreed upon the side, the site, the procedure to be performed, patient identity and antibiotics given. We used the previous incision and extended distally and proximally as appropriate for revision exposure. Incision was taken down through skin. Subcutaneous tissue was dissected using Bovie cautery. Once we dissected down to the fascia the fascia was incised in line with the incision internally retractor was placed. Leg was internally rotated slight flexion and we carefully took off the external rotators and posterior capsule. Once we were into the joint there was dark mills fluid that was expressed from the joint. We tried to suction as much as this has been can so as not to contaminate tissue. We carefully performed a synovectomy debriding the metallosis synovium inside the joint. Once this was completed we were able to dislocate the joint and expose the trunnion. We carefully used a bur and osteotomes to interrupt the bone implant interface and back slap was used to remove the femoral stem. Once the femoral stem was removed with minimal bone loss we then reamed the femur to an 18 mm x 115 mm stem. We carefully curettaged the proximal femur of any metallosis synovium and then directed our attention towards the acetabulum. Once we were able to expose the acetabulum the previous femoral head was removed and the polyethylene did show some damage in relation to the dissociation however the metal shell appeared stable. Based on the damage to the polyethylene and the desire to proceed with a dual mobility implant based on the revision nature of the surgery we removed the polyethylene hooded liner. Once all the implants were removed we carefully irrigated out the wound with 6 L of normal saline under low-pressure lavage. Once this was completed a size F liner was opened and impacted into place. Knapp taper was verified on the MDM liner. Attention was turned back to the femur where the 18 mm x 115 mm stem was impacted into place and secured. We then reamed off the final component for the proximal cone body to 25 mm. This was based on the patient's previous stem neck length in comparison to the 25 mm cone body. Once we did this we placed a 25 mm +10 mm trial cone body onto the femoral stem with a +8 mm 46 mm femoral head trial. This gave us good leg lengths with appropriate offset. We were able to flex the hip 90 degrees with 35 degrees of internal rotation without impingement or dislocation. With the knee in full extension there was not excessive quadriceps tension. Leg lengths were equal based on the lateral decubitus position and the distal poles of the patella. Once you are happy with this the hip was dislocated trial components were removed final components were open wound was copiously irrigated out with normal saline once more final components were impacted into place engaging the Knapp taper and then finally placing the bolt connecting the cone body. Trunnion was wiped off with a clean lap and MDM femoral head was assembled on the back table and impacted into place on the clean dry trunnion. Knapp taper was verified and hip was reduced. Hip remained stable with good leg lengths. Wound was copiously irrigated out with dilute Betadine lavage followed by chlorhexidine lavage followed by copious amounts of normal saline. Once this was completed there were not distinct structures to repair in the posterior capsule so no repair was performed here. Fascia was closed with #1 Vicryl he was closed proximally and distally using #1 strata fix runner. Deep subcutaneous fatty layer was closed using #1 Vicryl interrupted sutures. Subcutaneous layer was closed using 2-0 Vicryl. Final skin closure was done with 2-0 nylon sutures. Sterile dressing was placed. Patient was awakened by anesthesia and transferred to the supine position. They were then transferred from the operating table to the hospital bed and then to the PACU for recovery in stable condition. Postop plan: Therapy?posterior precautions for 6 weeks. Weightbearing as tolerated, activity as tolerated DVT prophylaxis- Patient will restart Coumadin tomorrow Will place the patient on doxycycline 100 mg p.o. twice daily for 2 weeks postoperatively due to high risk nature of the procedure. Patient should follow-up in the office a 2-week postoperative visit. Dressing should remain on for 5 days postoperatively unless needs change for saturation. Sutures can be removed in postop day 14. Surgical Findings: Patient's femoral head dissociated from the trunnion. 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 Due to soft tissue destruction and concern for stability after revision we did revise the acetabular component to a dual mobility component. Complications Complications: No Admit VTE Documentation VTE Present on Admission: No VTE Mechan Device Prophylaxis: SCD's and Thigh High JOSE Hose VTE Pharm Prophylaxis ordered?: Yes
--- NOTE | 2025-04-20 17:23 | PCM.POST.ANE ---
Anesthesia: Postop Eval I Current Vital Signs Temperature: 97.7 F Pulse Rate: 106 Blood Pressure: 125/72 Respiratory Rate: 16 Pulse Ox: 96 Oxygen Delivery Method: Room Air Assessment Airway patent: Yes Spontaneous unlabored respirations: Yes Mental status: Awake and Calm nausea: No Vomiting: No Anesthesia Complication: No Fluid Hydration Crystalloid volume administer (ml): 1,400 Total IV fluid infused: 1,400 Progress Note Anesthesia document: Postop Eval 1 completed: Yes
--- NOTE | 2025-04-20 17:40 | RAD_ITS ---
PROCEDURE: HIP MIN 2 VIEWS (PORTABLE) 04/20/2025 REASON FOR EXAM: POST OP TECHNIQUE: Procedure Code: RADH_P Modality: DX Procedure: HIP MIN 2 VIEWS (PORTABLE) Laterality: COMPARISON: 04/19/2025. FINDINGS: Status post right hip arthroplasty. Surrounding soft tissue swelling and air which is expected postsurgically. [id number] left hip degenerative changes. RAD/Hip Min 2 Views (Portable) IMPRESSION: Intact right hip arthroplasty. Left hip osteoarthrosis. Reading Location: [id number]
--- NOTE | 2025-04-20 17:51 | POSTOPAN2_ITS ---
Anesthesia Postop Eval I Sum Postop Eval Completion status Anesthesia document: Postop Eval 1 completed: Yes Anesthesia Postop Eval I Summary Anesthesia Postop Eval I Summary: Anesthesia Postop Eval I: Assessment Summary Airway patent Yes 04/20/25 17:24 [email or web address] Spontaneous unlabored Yes 04/20/25 17:24 [email or web address] respirations Mental status Awake,Calm 04/20/25 17:24 [email or web address] nausea No 04/20/25 17:24 [email or web address] Vomiting No 04/20/25 17:24 [email or web address] Anesthesia Postop Eval I: Fluid Summary Crystalloid volume administer 1,400 04/20/25 17:24 [email or web address] (ml) Colloids volume administered ( ml) Blood Product volume administered (ml) Total IV fluid infused 1,400 04/20/25 17:24 [email or web address] Anesthesia Postop Eval I: Summary Notes Anesthesia Complication No 04/20/25 17:24 [email or web address] Anesthesia Complication Comment: Post-operative progress note Anesthesia: Postop Eval II Evaluation Mental status: Awake Pain Level: 1 nausea: No Vomiting: No Progress Note Post-operative progress note: Doing well in PACU. Baseline vital signs. Pain controlled. Plan to return to regular nursing floor. Complications Anesthesia Complication: No
--- NOTE | 2025-04-20 17:51 | PCM.POSTANE2 ---
Anesthesia Postop Eval I Sum Postop Eval Completion status Anesthesia document: Postop Eval 1 completed: Yes Anesthesia Postop Eval I Summary Anesthesia Postop Eval I Summary: Anesthesia Postop Eval I: Assessment Summary Airway patent Yes 04/20/25 17:24 CAD CAM [email or web address] Spontaneous unlabored Yes 04/20/25 17:24 CAD CAM [email or web address] respirations Mental status Awake,Calm 04/20/25 17:24 CAD CAM [email or web address] nausea No 04/20/25 17:24 CAD CAM [email or web address] Vomiting No 04/20/25 17:24 CAD CAM [email or web address] Anesthesia Postop Eval I: Fluid Summary Crystalloid volume administer 1,400 04/20/25 17:24 CAD CAM [email or web address] (ml) Colloids volume administered ( ml) Blood Product volume administered (ml) Total IV fluid infused 1,400 04/20/25 17:24 CAD CAM [email or web address] Anesthesia Postop Eval I: Summary Notes Anesthesia Complication No 04/20/25 17:24 CAD CAM [email or web address] Anesthesia Complication Comment: Post-operative progress note Anesthesia: Postop Eval II Evaluation Mental status: Awake Pain Level: 1 nausea: No Vomiting: No Progress Note Post-operative progress note: Doing well in PACU. Baseline vital signs. Pain controlled. Plan to return to regular nursing floor. Complications Anesthesia Complication: No
[2025-04-20] MEDS: Cefazolin 1 GM/50 ML BAG IV (21:51)
[2025-04-20] MEDS: Senna/Docusate Sodium 1 Tablet 2 TABLET PO (21:51)
[2025-04-21 03:48] VITALS: BP 106/72; PULSE 110; RESP 16; TEMP 36.7; O2SAT 95
[2025-04-21] MEDS: Cefazolin 1 GM/50 ML BAG IV (05:14)
[2025-04-21 05:32] LABS: Hematocrit 35.7 % (40-54); Hemoglobin 12.1 g/dL (13.0-16.5); Immature Granulocytes Count 0.070 X10^3/uL (0.0-0.0); Mean Corp Hgb Conc 33.9 g/dL (32-36); Mean Corpuscular Volume 93.0 fL (80-94); Mean Platelet Vol. 11.2 fl (6.2-12.0); NRBC Flagged by Analyzer 0 % (0-5); Platelet Count 251 K/mm3 (150-450); RBC Distribution Width CV 13.3 % (11.6-14.6); RBC Distribution Width SD 45.3 fl (35.1-43.9); Red Blood Count 3.84 M/mm3 (4.6-6.2); White Blood Count 16.6 K/mm3 (4.4-11.0)
[2025-04-21 05:41] LABS: Prothrombin Time (Protime)PT. 14.5 SECONDS (11.7-14.9)
[2025-04-21 05:53] LABS: Anion Gap 14 (5-15); BUN 18 mg/dL (4-19); BUN/Creat Ratio 21.2 RATIO (10-20); Calcium,Total 8.6 mg/dL (7.6-11.0); Carbon Dioxide 22.6 mmol/L (21.0-32.0); Chloride 98 mmol/L (98-108); Estimated Creatinine Clearance 84.57 ml/min (50-250); Glucose 198 mg/dL (70-99); Potassium 4.6 mmol/L (3.3-5.1)
--- NOTE | 2025-04-21 07:38 | PCM.PN.ORT ---
Subjective Subjective Patient is sitting comfortably in bed upon examination. Patient states that he is doing well and that his pain is adequately controlled at this time. Patient states that he does plan to go back home. Patient states that he does have help at home at this time. Patient states that he is stood up next to the bed with his walker but has not been up and walking at this point. Patient denies any shortness of breath, chest pain, calf pain. Patient denies any new numbness or tingling. Patient denies any fevers, chills, signs of infection. Patient denies any adverse events overnight. Objective Data Objective Data Vital Signs: Vital Signs Temp Pulse Resp BP Pulse Ox O2 Del Method O2 Flow Rate 98.1 F 110 H 16 106/72 95 Nasal Cannula 2 04/21/25 03:48 04/21/25 03:48 04/21/25 03:48 04/21/25 03:48 04/21/25 03:48 04/21/25 04:25 04/21/25 04:25 Oxygen Flow Rate (L/min) 2 Oxygen Delivery Method Nasal Cannula Weight: 100.7 kg Body Mass Index (BMI) 30.1 Intake & Output: Intake and Output for Last 24 Hours 04/19/25 04/20/25 04/21/25 23:59 23:59 23:59 Intake Total 1160 / 1160 Output Total 1200 / 1500 1300 / 1300 Balance -40 / -340 -1300 / -1300 Lab / Micro Data 04/21/25 04:42 04/21/25 04:42 Labs: Laboratory Results - last 24 hr 04/20/25 12:05: POC Glucose 143 H 04/20/25 21:53: POC Glucose 188 H 04/21/25 04:42: WBC 16.6 H, RBC 3.84 L, Hgb 12.1 L, Hct 35.7 L, MCV 93.0, MCH 31.5, MCHC 33.9, RDW Std Deviation 45.3 H, RDW Coeff of Risa 13.3, Plt Count 251, MPV 11.2, Immature Gran % (Auto) 0.400, Neut % (Auto) 87.2 H, Lymph % (Auto) 5.1 L, [place] % (Auto) 7.2, Eos % (Auto) 0.0, Baso % (Auto) 0.1, Absolute Neuts (auto) 14.5 H, Absolute Lymphs (auto) 0.84, Nucleated RBC % 0, PT 14.5, INR 1.1, Sodium 135, Potassium 4.6, Chloride 98, Carbon Dioxide 22.6, Anion Gap 14, BUN 18, Creatinine 0.87, Estim Creat Clear Calc 84.57, Est GFR (MDRD) Non-Af 88, BUN/Creatinine Ratio 21.2 H, Glucose 198 H, Calcium 8.6 04/21/25 06:40: POC Glucose 221 H Radiography Diagnostic Testing: Radiology Impression Hip X-Ray 04/20/25 17:40 IMPRESSION: Intact right hip arthroplasty. Left hip osteoarthrosis. Reading Location: [address] Physical Exam Narrative JOSE hose in place bilaterally SCDs in place bilaterally Dressing is clean, dry, intact. Right hip soft and supple. Dorsiflexion and plantarflexion are performed actively without pain or restriction Sensation intact light touch. Neurovascularly intact overall. Negative Homans bilaterally. 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 DVT prophylaxis: Patient will be restarting his regular dose of Coumadin. Patient will also be wearing JOSE hose for 2 weeks postoperatively. Patient was educated take JOSE hose off at nighttime and when he is to take shower. 2. Pain medications: Patient states that his pain is adequately controlled at this time. Patient is currently on Tylenol and oxycodone per primary care team. Pain management will continue to be managed by primary care team. OARRS report was reviewed today. 3. Constipation: Patient was instructed to take senna until first bowel movement and then can take as needed. Patient was educated if he has not had a bowel movement in 3 days to contact our office for reevaluation. 4. Physical therapy: Patient was educated that he will need to set up outpatient physical therapy. Patient was educated on posterior hip precautions in office today. Patient was educated he will need to follow posterior hip precautions for 6 weeks. Patient will be weightbearing as tolerated with his walker. 5. H&H: 12.1/35.7. Patient is currently afebrile and vitals are stable. 6. Reactive leukocytosis: White blood cell count is currently 16.6. Patient did receive Decadron intraoperatively. Patient is currently afebrile and vitals are stable. 7. Incentive spirometry: Patient was encouraged to use incentive spirometer every hour that he is awake for the first week to x-ray his lungs and decrease risk postoperative lung infection. 8. Dressings: Patient was educated that he can get waterproof dressing wet on postop day 1. Patient was educated that he can remove dressing on postoperative day 5. Patient was educated to leave open to air as long as clean, dry, intact. Patient was educated no soaking or submerging for 6 weeks. Patient was educated not to place any lotions, salves, oils over incision for 6 weeks. Patient voiced understanding. 9. Patient is to follow-up for postoperative instructions. 10. Patient will need a 2-week follow-up appointment for suture removal and wound check at [facility]. 11. Patient will be on famotidine for 30 days postoperatively. 12. Doxycycline: Patient will be on doxycycline for 2 weeks postoperatively due to nature of revision surgery. Patient was educated on risk of sunburn while on doxycycline. Patient was educated to take a probiotic while on doxycycline. Patient voiced understanding. 13. Disposition: Patient is okay for discharge from orthopedic services as long as pain maintains adequately controlled, has worked with and is cleared by physical therapy, and is okay per primary care team. Pain management will continue to be managed by primary care team. Patient was educated on the use of doxycycline postoperatively. Patient was educated on the use of outpatient physical therapy as well as posterior hip precautions that he would need to follow for 6 weeks. Patient will be weightbearing as tolerated with walker. Patient will need a follow-up appointment with our office in 2 weeks for suture removal. Patient was encouraged to call with any questions, concerns, new problems. All questions were answered to best my ability.
[2025-04-21 07:42] VITALS: BP 111/67; PULSE 101; RESP 16; TEMP 36.6; O2SAT 97
[2025-04-21 07:45] VITALS: PULSE 101
[2025-04-21] MEDS: Metoprolol(XL)Succ 100 MG Tablet PO (07:45)
[2025-04-21] MEDS: Senna/Docusate Sodium 1 Tablet 2 TABLET PO (07:45)
--- NOTE | 2025-04-21 08:35 | PCM.PN.HOSP ---
Reason for Visit Chief Complaint: Right hip pain Subjective Subjective Feeling well. Objective Data Objective Data Vital Signs: Vital Signs Temp Pulse Resp BP Pulse Ox O2 Del Method O2 Flow Rate 36.6 C 101 H 16 111/67 97 Nasal Cannula 2 04/21/25 07:42 04/21/25 07:45 04/21/25 07:42 04/21/25 07:42 04/21/25 07:42 04/21/25 07:42 04/21/25 07:42 Oxygen Flow Rate (L/min) 2 Oxygen Delivery Method Nasal Cannula Weight: 100.7 kg Body Mass Index (BMI) 30.1 Intake & Output: Intake and Output for Last 24 Hours 04/19/25 04/20/25 04/21/25 23:59 23:59 23:59 Intake Total 1160 / 1160 Output Total 1200 / 1500 1300 / 1300 Balance -40 / -340 -1300 / -1300 Lab / Micro Data 04/21/25 04:42 04/21/25 04:42 Labs: Laboratory Results - last 24 hr 04/20/25 12:05: POC Glucose 143 H 04/20/25 21:53: POC Glucose 188 H 04/21/25 04:42: WBC 16.6 H, RBC 3.84 L, Hgb 12.1 L, Hct 35.7 L, MCV 93.0, MCH 31.5, MCHC 33.9, RDW Std Deviation 45.3 H, RDW Coeff of Risa 13.3, Plt Count 251, MPV 11.2, Immature Gran % (Auto) 0.400, Neut % (Auto) 87.2 H, Lymph % (Auto) 5.1 L, [place] % (Auto) 7.2, Eos % (Auto) 0.0, Baso % (Auto) 0.1, Absolute Neuts (auto) 14.5 H, Absolute Lymphs (auto) 0.84, Nucleated RBC % 0, PT 14.5, INR 1.1, Sodium 135, Potassium 4.6, Chloride 98, Carbon Dioxide 22.6, Anion Gap 14, BUN 18, Creatinine 0.87, Estim Creat Clear Calc 84.57, Est GFR (MDRD) Non-Af 88, BUN/Creatinine Ratio 21.2 H, Glucose 198 H, Calcium 8.6 04/21/25 06:40: POC Glucose 221 H Radiography Diagnostic Testing: Radiology Impression Hip X-Ray 04/20/25 17:40 IMPRESSION: Intact right hip arthroplasty. Left hip osteoarthrosis. Reading Location: [address] Physical Exam Const alert and no apparent distress HEENT head/scalp atraumatic and moist oral mucous membranes Resp normal respiratory effort and no retractions Assessment & Plan Assessment/Plan (1) Prosthetic hip implant failure: PLAN: Atraumatic as patient just twisting in his kitchen. Pt underwent revision both components right total hip replacement (2) Coagulopathy: PLAN: Iatrogenic (appropriately so). Resolved after vitamin K. Now, post surgery, pt to resume his warfarin. (3) Lytic bone lesions on xray: PLAN: Noted on chest CT from September 20 of this year in his right scapula. Patient had a CAT scan of his chest abdomen pelvis the next day on the that showed no report of that lytic lesion and no metastatic focus or anything in that nature. It was instructed the patient follow-up with further imaging in 6 months time but patient never did so. Will order CT of the chest without contrast. Discussed with claim technician that CAT scan without contrast center looking at the lytic lesion would be fine. PLAN: Plan Diabetes mellitus type 2: Continue with glimepiride and metformin postsurgery. Atrial fibrillation: Resume warfarin and continue metoprolol VTE prophylaxis restart warfarin. Since INR is subtherapuetic given the vitamin K, we will utilize twice daily aspirin until INR is therapeutic CODE STATUS: Addressed with the patient. Patient wishes to be full code.
--- NOTE | 2025-04-21 08:38 | CT_ITS ---
PROCEDURE: CHEST WITHOUT CONTRAST 04/21/2025 REASON FOR EXAM: RIGHT SCAPULA LYTIC LESION FOLLOW UP TECHNIQUE: Chest CT without contrast. Coronal and Sagittal reconstruction series were provided. One or more dose reduction techniques were used (e.g., Automated exposure control, adjustment of the mA and/or kV according to patient size, use of iterative reconstruction technique RADIATION DOSE SUMMARY: CTDlvol: 17.92 mGy DLP: 725.62 mGycm COMPARISON: 09/01/2024 FINDINGS: The bone windows show no interval change in the appearance of a previously noted well-defined lucent lesion in the glenoid region of the scapula. It is unchanged in size compared to the previous study, there is no irregularity of the inner border of the lesion nor is there evidence of expansion through the cortical surface since the previous study. Lung windows show chronic interstitial changes in both lung ugy with interstitial edema, small pleural effusions and minimal bibasilar atelectasis. No organized infiltrate or suspicious noncalcified mass or nodule. The soft tissue windows show a normal-appearing thyroid gland. No suspicious axillary, mediastinal or perihilar adenopathy. There are calcified coronary vessels. Limited cuts through the upper abdomen do not show a suspicious abnormality. Bony structures show degenerative change, no other suspicious lucent lesion is noted. There is a stable sclerotic focus within the anterior right scapula likely a bone island CT/Chest without Contrast IMPRESSION: Coronary artery calcification (CAC) is is present Stable lucent lesion within the right scapula in the inferior glenoid region. It is unchanged in size or appearance compared to the previous study. There is no expansion through the cortical surface. The i nner border of the lesion is also free of erosive or irregular changes. I suspect this is a benign lesion but another six-month follow-up could be performed for stability Mild interstitial edema with small pleural effusions and bibasilar atelectasis. Findings are consistent with pulmonary vascular congestion. Follow-up recommended to ensure complete resolution No suspicious adenopathy Degenerative bony changes Reading Location: [id number]
--- NOTE | 2025-04-21 10:01 | CASEMGMT ---
Discharge Planning A list of?SNF providers including quality and resource use data and consistent with the patient's preferred geographic region, medical needs, and insurance network was created in [facility] Guide.? This list was provided to the SW. Joelle Tran Discharge Planning Asst.
--- NOTE | 2025-04-21 10:43 | CASEMGMT ---
Social Work SW provided the patient a list of?HH providers including quality and resource use data and consistent with the patient's preferred geographic region, medical needs, and insurance network was created in [facility] Guide.?SW will follow regarding his choice for HH agency. NASRA Shi
--- NOTE | 2025-04-21 11:37 | CASEMGMT ---
Social Work SW spoke with the patient. Patient chose [facility] and requested a walker. SW sent the HH to [facility] and will order a FWW. NASRA Raphael
--- NOTE | 2025-04-21 11:57 | DS.PCM_ITS ---
Providers Date of Admission: 04/19/25 Primary Care Physician: Dr. Neymar De Leon MD Consultations 04/19/25 12:50 Consult: Orthopedics Routine Consulting Provider: Hugo Bradley Reason for Consult: right hip fxr EMERGENT Consult: No MD Notified: Yes Date Notified: 04/19/25 Time Notified: 11:31 Method of Notification: ED Physician Initiated Reason For Visit: HIP FRACTURE Diagnosis Discharge Diagnosis (1) Prosthetic hip implant failure: Status: Acute Code(s): T84.018A - Broken internal joint prosthesis, other site, initial encounter; Z96.649 - Presence of unspecified artificial hip joint Plan: Atraumatic as patient just twisting in his kitchen. Pt underwent revision both components right total hip replacement (2) Coagulopathy: Status: Acute Code(s): D68.9 - Coagulation defect, unspecified Plan: Iatrogenic (appropriately so). Resolved after vitamin K. Now, post surgery, pt to resume his warfarin. (3) Lytic bone lesions on xray: Status: Acute Code(s): M89.8X9 - Other specified disorders of bone, unspecified site Plan: Noted on chest CT from September 20 of this year in his right scapula. Patient had a CAT scan of his chest abdomen pelvis the next day on the that showed no report of that lytic lesion and no metastatic focus or anything in that nature. It was instructed the patient follow-up with further imaging in 6 months time but patient never did so. Will order CT of the chest without contrast. Discussed with ekg tech that CAT scan without contrast center looking at the lytic lesion would be fine. Plan Diabetes mellitus type 2: Continue with glimepiride and metformin postsurgery. Atrial fibrillation: Resume warfarin and continue metoprolol VTE prophylaxis restart warfarin. Since INR is subtherapuetic given the vitamin K, we will utilize twice daily aspirin until INR is therapeutic CODE STATUS: Addressed with the patient. Patient wishes to be full code. Medications at Discharge Home Medications atorvastatin 40 mg tablet 40 mg PO QHS CHOLESTEROL 05/20/22 glimepiride 2 mg tablet 2 mg PO DAILY DIABETES 05/20/22 losartan 50 mg tablet 100 mg PO DAILY BLOOD PRESSURE 05/20/22 metformin 500 mg tablet 1,000 mg PO BID DIABETES 05/20/22 metoprolol succinate 100 mg tablet,extended release 24 hr 100 mg PO DAILY BLOOD PRESSURE AND HEART RATE 05/20/22 warfarin 2 mg tablet 4 mg PO SUTUTHSA blood clots 05/20/22 warfarin 2 mg tablet 6 mg PO QMWF blood clots 05/20/22 amlodipine 5 mg tablet 5 mg PO DAILY high blood pressure 04/19/25 magnesium 500 mg tablet 15 mg PO DAILY for low mag 04/19/25 acetaminophen 325 mg tablet 1,000 mg (3.0769 x 325 mg) PO Q8H PRN PRN Pain 1-10 Or Fever >100.7 #0 tabs 04/21/25 aspirin 81 mg tablet,delayed release (Adult Low Dose Aspirin) 81 mg PO BIDCM low dose #30 tabs 04/21/25 doxycycline monohydrate 100 mg capsule 100 mg PO BID #14 caps 04/21/25 oxycodone 5 mg tablet 5 mg PO Q4H PRN PRN Pain Score 4-10 3 days #12 tabs 04/21/25 Hospital Course Operations - (Revision both components right total hip replacement) Summary of Care Provided Hospital Course: This is a patient that was standing and felt his right leg gave out. He was able to catch himself and did not fall. Patient was found to have a broken proximal right hip prosthesis. Patient underwent a revision on the after reversal of his INR. Patient has done very well with therapy. His situation is not typical of revision of hip replacements as it was not a fall that broke but appearing to be the device itself that had failed. Patient is doing very well with therapy. Patient was seen in August and operative his workup noted a lytic lesion in his right scapula. He did not ever seek follow-up but we did do a follow-up CAT scan this admission that showed a stable lucent lesion within the right scapula and in the inferior glenoid region. Unchanged. Do recommend 6- month follow-up. This very well may be benign lesion. Since patient's INR was reversed it is down to 1.1. Patient takes warfarin for atrial fibrillation. He will resume his warfarin and then be on aspirin 81 mg twice daily until his INR is therapeutic. Discussed with orthopedic service, patient is to be on doxycycline 100 twice daily for 2 weeks given this revision. Weight / BMI Weight Weight: 100.7 kg Body Mass Index (BMI) 30.1 ABG / Lab / Microbiology Data 04/21/25 04:42 04/21/25 04:42 Laboratory: Laboratory Results - last 24 hr 04/20/25 12:05: POC Glucose 143 H 04/20/25 21:53: POC Glucose 188 H 04/21/25 04:42: WBC 16.6 H, RBC 3.84 L, Hgb 12.1 L, Hct 35.7 L, MCV 93.0, MCH 31.5, MCHC 33.9, RDW Std Deviation 45.3 H, RDW Coeff of Risa 13.3, Plt Count 251, MPV 11.2, Immature Gran % (Auto) 0.400, Neut % (Auto) 87.2 H, Lymph % (Auto) 5.1 L, [place] % (Auto) 7.2, Eos % (Auto) 0.0, Baso % (Auto) 0.1, Absolute Neuts (auto) 14.5 H, Absolute Lymphs (auto) 0.84, Nucleated RBC % 0, PT 14.5, INR 1.1, Sodium 135, Potassium 4.6, Chloride 98, Carbon Dioxide 22.6, Anion Gap 14, BUN 18, Creatinine 0.87, Estim Creat Clear Calc 84.57, Est GFR (MDRD) Non-Af 88, B UN/Creatinine Ratio 21.2 H, Glucose 198 H, Calcium 8.6 04/21/25 06:40: POC Glucose 221 H Radiography Diagnostic Testing: Radiology Impression Hip X-Ray 04/20/25 17:40 IMPRESSION: Intact right hip arthroplasty. Left hip osteoarthrosis. Reading Location: [address] Chest [address] 04/21/25 08:38 IMPRESSION: Coronary artery calcification (CAC) is is present Stable lucent lesion within the right scapula in the inferior glenoid region. It is unchanged in size or appearance compared to the previous study. There is no expansion through the cortical surface. The inner border of the lesion is also free of erosive or irregular changes. I suspect this is a benign lesion but another six-month follow-up could be performed for stability Mild interstitial edema with small pleural effusions and bibasilar atelectasis. Findings are consistent with pulmonary vascular congestion. Follow-up recommended to ensure complete resolution No suspicious adenopathy Degenerative bony changes Reading Location: [facility] D/C Instructions DC O2, CPAP, BIPAP Needs Home O2 Discharge instructions: No Meaningful Use Info Meaningful Use Meaningful Use Diagnoses (Choose all that apply): None applicable Discharge Plan Admission Admit Date/Time: 04/19/25 11:26 Primary Reason for Your Visit: Right hip prosthetic fracture Attending Provider: Marcelino Gracia Primary Care Provider: Neymar De Leon Consulting Providers: Hugo Bradley Instructions Additional Instructions / Restrictions: CAT scan back in August and again this month showed an area on your shoulder blade (scapula) this may be benign but is recommend that you have this followed up in 6 months to see if there is any changes. Thus far things appear unchanged. Weightbearing as tolerated right lower extremity. Discharge Orders/Prescriptions Prescriptions: New acetaminophen 325 mg Tablet 1,000 mg PO Q8H PRN PRN (Reason: Pain 1-10 Or Fever >100.7) Qty: 0 0RF oxycodone 5 mg Tablet 5 mg PO Q4H PRN PRN (Reason: Pain Score 4-10) 3 Days Qty: 12 0RF doxycycline monohydrate 100 mg capsule 100 mg PO BID Qty: 14 0RF Continued losartan 50 mg tablet 100 mg PO DAILY atorvastatin 40 mg tablet 40 mg PO QHS Patient Comments: TAKE 1 TABLET BY MOUTH AT BEDTIME metformin 500 mg tablet 1,000 mg PO BID metoprolol succinate 100 mg tablet extended release 24 hr 100 mg PO DAILY glimepiride 2 mg tablet 2 mg PO DAILY warfarin 2 mg Tablet 6 mg PO QMWF warfarin 2 mg Tablet 4 mg PO SUTUTHSA magnesium 500 mg tablet 15 mg PO DAILY amlodipine 5 mg tablet 5 mg PO DAILY Changed aspirin [Adult Low Dose Aspirin] 81 mg tablet,delayed release (DR/EC) 81 mg PO BIDCM Qty: 30 0RF Rx Instructions: Take twice daily until your INR is between 2 and 3. Then resume daily dosing. Referrals / Follow Up: Neymar De Leon MD [Primary Care Provider, Medical] - Within 2 Weeks Hugo Bradley MD [Med Staff - Active Staff, Orthopedics] - Within 2 Weeks Disposition Disposition (needs filled in before D/C Order can be placed): Home Health Service Charges/Coding Visit Charges Inpatient E&M: 88194 Disch Hosp >30min
--- NOTE | 2025-04-21 12:25 | CASEMGMT ---
Social Work MINESH spoke with Nata at [facility] and SOC is 04/24/25. MINESH ordered a FWW with [employer] and delivered it to the patients room. Patient chose [facility] for FWW. SW informed the patient that [facility] has accepted him and SOC is Thursday. NASRA Raphael
[2025-04-21 13:40] VITALS: BP 112/72; PULSE 106; RESP 16; TEMP 36.8; O2SAT 97
--- NOTE | 2025-04-21 14:57 | PHA.DC_ITS ---
Pharmacy [facility] Counseling Pharmacy Service has performed discharge medication reconciliation and counseling for this patient. The patient's discharge medication list was reviewed for discrepancies and discrepancies were resolved. The patient was counseled on the following discharge medications and changes in medications for homegoing were reviewed. The Reason for Use, instructions for use, and potential side effects were reviewed for all new medications. The patient's questions regarding all of their medications were answered. 1. Acetaminophen 1000 mg PO Q8H PRN pain 2. Oxycodone 5 mg PO Q4H PRN pain 3. Doxycycline 100 mg PO BID x 7 days 4. Aspirin 81 mg PO BID until INR > 2 The patient was able to verbally demonstrate an understanding of their discharge medications. Medications at Discharge Home Medications atorvastatin 40 mg tablet 40 mg PO QHS CHOLESTEROL 05/20/22 glimepiride 2 mg tablet 2 mg PO DAILY DIABETES 05/20/22 losartan 50 mg tablet 100 mg PO DAILY BLOOD PRESSURE 05/20/22 metformin 500 mg tablet 1,000 mg PO BID DIABETES 05/20/22 metoprolol succinate 100 mg tablet,extended release 24 hr 100 mg PO DAILY BLOOD PRESSURE AND HEART RATE 05/20/22 warfarin 2 mg tablet 4 mg PO SUTUTHSA blood clots 05/20/22 warfarin 2 mg tablet 6 mg PO QMWF blood clots 05/20/22 amlodipine 5 mg tablet 5 mg PO DAILY high blood pressure 04/19/25 magnesium 500 mg tablet 15 mg PO DAILY for low mag 04/19/25 acetaminophen 325 mg tablet 1,000 mg (3.0769 x 325 mg) PO Q8H PRN PRN Pain 1-10 Or Fever >100.7 #0 tabs 04/21/25 aspirin 81 mg tablet,delayed release (Adult Low Dose Aspirin) 81 mg PO BIDCM low dose #30 tabs 04/21/25 doxycycline monohydrate 100 mg capsule 100 mg PO BID #14 caps 04/21/25 oxycodone 5 mg tablet 5 mg PO Q4H PRN PRN Pain Score 4-10 3 days #12 tabs 04/21/25
== END 2025-04-21 15:07 | disposition home health service (06) | DRG 468 ==
LOC: ED 10:54 → PCU 12:22
PROVIDERS: Anesthesiology; Specialist; Emergency Provider Emergency Medicine; PCP Internal Medicine
PROC: 0SP90JZ Removal of Synthetic Substitute from Right Hip Joint, Open Approach (ICD-10-PCS; CPT 27134; principal; 2025-04-20 13:35)
DX: T84.090A Other mechanical complication of internal right hip prosthesis, initial encounter (principal); E11.65 Type 2 diabetes mellitus with hyperglycemia; I10 Essential (primary) hypertension; I48.91 Unspecified atrial fibrillation; E78.00 Pure hypercholesterolemia, unspecified; T84.89XA Other specified complication of internal orthopedic prosthetic devices, implants and grafts, initial encounter; X58.XXXA Exposure to other specified factors, initial encounter; M89.8X1 Other specified disorders of bone, shoulder; Z96.641 Presence of right artificial hip joint; Z79.01 Long term (current) use of anticoagulants; Z79.84 Long term (current) use of oral hypoglycemic drugs; Z79.899 Other long term (current) drug therapy; Z87.891 Personal history of nicotine dependence
CPT/HCPCS: 36415; 71045; 71250; 73502; 80048; 80076; 82306; 82962; 83036; 85025; 85610; 86850; 86900; 86901; 93005; 94668; 97162; 97167; 97530; 97535; 99285; C1776; A4216; J2405

== ENCOUNTER 2025-05-13 21:34 | Emergency (ER) | payer MEDICARE, SELFPAY ==
[2025-05-13] VITALS (7 sets, daily range): BP systolic 106–146; BP diastolic 67–94; PULSE 97–112; RESP 13–27; TEMP 36.8; O2SAT 90–100; BMI 32.2
--- NOTE | 2025-05-13 21:57 | RAD_ITS ---
PROCEDURE: HIP, UNI W/ PELVIS 2-3 VIEWS 05/13/2025 REASON FOR EXAM: INJURY/PAIN TECHNIQUE: Procedure Code: RAD Modality: DX Procedure: HIP, UNI W/ PELVIS 2-3 VIEWS Laterality: Right COMPARISON: 04/20/2020 FINDINGS: Bones: No acute fractures. Joints: Total right hip arthroplasty with pronounced separation of the ball and socket joint at least 7 cm. Soft tissues: Soft tissue swelling. RAD/HIP, UNI W/ Pelvis 2-3 Views IMPRESSION: Pronounced separation of the right hip arthroplasty by at least 7 cm. Reading [facility]
--- NOTE | 2025-05-13 22:01 | ED.VIS.LOWEX ---
HPI History of Present Illness HPI Narrative: Patient presents with pain in his right hip that began tonight. Patient states he was sitting in his chair and felt something pop in his right hip when he moved. Patient states he was able to do his therapy exercises today. Patient states his pain began rather suddenly. Patient states it is constant. Patient admits to some tightness in his right hip. Patient states nothing makes it worse and nothing makes it better. Patient denies any weakness. 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 Overweight (BMI 25.0-29.9) Kidney stones Diabetes Atrial fibrillation Hypertension Home Medications ?Medication ?Instructions ?Recorded ?Last Taken ?Type atorvastatin 40 mg tablet 40 mg PO QHS CHOLESTEROL 05/20/22 04/18/25 History glimepiride 2 mg tablet 2 mg PO DAILY DIABETES 05/20/22 04/18/25 History losartan 50 mg tablet 100 mg PO DAILY BLOOD PRESSURE 05/20/22 04/18/25 History metformin 500 mg tablet 1,000 mg PO BID DIABETES 05/20/22 04/19/25 History metoprolol succinate 100 mg 100 mg PO DAILY BLOOD PRESSURE AND 05/20/22 04/19/25 History tablet,extended release 24 hr HEART RATE warfarin 2 mg tablet 4 mg PO SUTUTHSA blood clots 05/20/22 04/18/25 History warfarin 2 mg tablet 6 mg PO QMWF blood clots 05/20/22 04/17/25 History amlodipine 5 mg tablet 5 mg PO DAILY high blood pressure 04/19/25 04/18/25 History magnesium 500 mg tablet 15 mg PO DAILY for low mag 04/19/25 04/18/25 History acetaminophen 325 mg tablet 1,000 mg (3.0769 x 325 mg) PO Q8H 04/21/25 Unknown Rx PRN PRN Pain 1-10 Or Fever >100.7 #0 tabs aspirin 81 mg tablet,delayed 81 mg PO BIDCM low dose #30 tabs 04/21/25 04/18/25 Rx release (Adult Low Dose Aspirin) doxycycline monohydrate 100 mg 100 mg PO BID #14 caps 04/21/25 Unknown Rx capsule oxycodone 5 mg tablet 5 mg PO Q4H PRN PRN Pain Score 04/21/25 Unknown Rx 4-10 3 days #12 tabs Allergy/AdvReac Type Severity Reaction Status Date / Time No Known Allergies Allergy Verified 04/20/25 13:06 Family History Other Heart disease Surgical History History of hip replacement History of knee replacement Social History Smoking Status: Former smoker ROS ROS ED Constitutional Constitutional ED: Denies chills or fever(s) Eyes Eyes: Denies blurry vision or change in vision ENT ENT ED: Denies rhinorrhea or sore throat Cardiovascular Cardiovascular: Denies chest pain or palpitations Respiratory/Chest Respiratory/Chest: Denies cough or dyspnea Gastrointestinal Gastrointestinal: Denies nausea or vomiting Genitourinary Genitourinary ED: Denies dysuria or hematuria Musculoskeletal Musculoskeletal: Reports back pain; Denies neck pain Integumentary Denies abscess or rash Neurologic Neurologic: Denies headache(s) or weakness Allergic/Immunologic Allergic/Immunologic ED: Denies mouth swelling or urticaria EXAM Physical Exam Const Vital Signs: 05/13/25 21:37 05/13/25 22:50 05/13/25 22:55 Temperature 98.2 F Temperature Source Oral Pulse Rate 112 H 97 Pulse Rate [1 (Initial Baseline)] 99 Pulse Rate [2] 100 Pulse Rate [3] 99 Pulse Rate [5] 100 Pulse Rate [6] 107 H Respiratory Rate 22 H 22 H Respiratory Rate [1 (Initial Baseline)] 13 Respiratory Rate [2] 18 Respiratory Rate [3] 16 Respiratory Rate [5] 13 Respiratory Rate [6] 20 H Blood Pressure 133/80 H 146/94 H Blood Pressure [1 (Initial Baseline)] 140/80 H Blood Pressure [2] 121/76 H Blood Pressure [3] 131/86 H Blood Pressure [5] 115/68 Blood Pressure [6] 111/67 Blood Pressure Mean 97 Baseline BP 146/94 Pulse Ox 98 98 Oxygen Delivery Method Room Air Room Air Oxygen Delivery Method [1 (Initial Baseline)] Room Air Oxygen Delivery Method [2] Room Air Oxygen Delivery Method [3] Room Air Oxygen Delivery Method [4] Nasal Cannula Oxygen Delivery Method [5] Nasal Cannula Oxygen Delivery Method [6] Nasal Cannula Oxygen Flow Rate (L/min) [4] 4 Oxygen Flow Rate (L/min) [5] 4 Oxygen Flow Rate (L/min) [6] 3 EtCo2 - Document during CPR and with ROSC EtCo2 - Document during CPR and with ROSC [1 (Initial Baseline)] 49 EtCo2 - Document during CPR and with ROSC [2] 49 EtCo2 - Document during CPR and with ROSC [3] 41 EtCo2 - Document during CPR and with ROSC [5] 52 EtCo2 - Document during CPR and with ROSC [6] 45 05/13/25 23:07 05/13/25 23:15 05/13/25 23:15 Temperature Temperature Source Pulse Rate 101 H Pulse Rate [1 (Initial Baseline)] Pulse Rate [2] Pulse Rate [3] Pulse Rate [5] Pulse Rate [6] Respiratory Rate 24 H Respiratory Rate [1 (Initial Baseline)] Respiratory Rate [2] Respiratory Rate [3] Respiratory Rate [5] Respiratory Rate [6] Blood Pressure 113/71 Blood Pressure [1 (Initial Baseline)] Blood Pressure [2] Blood Pressure [3] Blood Pressure [5] Blood Pressure [6] Blood Pressure Mean Baseline BP Pulse Ox 96 Oxygen Delivery Method Room Air Room Air Oxygen Delivery Method [1 (Initial Baseline)] Oxygen Delivery Method [2] Oxygen Delivery Method [3] Oxygen Delivery Method [4] Oxygen Delivery Method [5] Oxygen Delivery Method [6] Oxygen Flow Rate (L/min) [4] Oxygen Flow Rate (L/min) [5] Oxygen Flow Rate (L/min) [6] EtCo2 - Document during CPR and with ROSC 49 24 EtCo2 - Document during CPR and with ROSC [1 (Initial Baseline)] EtCo2 - Document during CPR and with ROSC [2] EtCo2 - Document during CPR and with ROSC [3] EtCo2 - Document during CPR and with ROSC [5] EtCo2 - Document during CPR and with ROSC [6] 05/13/25 23:20 11/15/25 23:25 Temperature Temperature Source Pulse Rate 105 H 105 H Pulse Rate [1 (Initial Baseline)] Pulse Rate [2] Pulse Rate [3] Pulse Rate [5] Pulse Rate [6] Respiratory Rate 23 H 18 Respiratory Rate [1 (Initial Baseline)] Respiratory Rate [2] Respiratory Rate [3] Respiratory Rate [5] Respiratory Rate [6] Blood Pressure 125/70 H 123/75 H Blood Pressure [1 (Initial Baseline)] Blood Pressure [2] Blood Pressure [3] Blood Pressure [5] Blood Pressure [6] Blood Pressure Mean Baseline BP Pulse Ox 96 97 Oxygen Delivery Method Room Air Room Air Oxygen Delivery Method [1 (Initial Baseline)] Oxygen Delivery Method [2] Oxygen Delivery Method [3] Oxygen Delivery Method [4] Oxygen Delivery Method [5] Oxygen Delivery Method [6] Oxygen Flow Rate (L/min) [4] Oxygen Flow Rate (L/min) [5] Oxygen Flow Rate (L/min) [6] EtCo2 - Document during CPR and with ROSC 42 40 EtCo2 - Document during CPR and with ROSC [1 (Initial Baseline)] EtCo2 - Document during CPR and with ROSC [2] EtCo2 - Document during CPR and with ROSC [3] EtCo2 - Document during CPR and with ROSC [5] EtCo2 - Document during CPR and with ROSC [6] Positive well nourished and well developed General Appearance ED: well developed and NAD HEENT Reports moist mucous membranes normocephalic and atraumatic Resp normal respiratory effort and clear to auscultation bilaterally Cardio regular rate Rhythm: abnormal rhythm irregularly irregular GI non-tender and non-distended Palpation: soft Extremity Extremity Narrative: There is some shortening and internal rotation of the right lower extremity. Range of motion was limited in all motions of the right hip secondary to pain. Sensation was intact to light touch bilaterally in the lower extremities. Pedal pulses are equal bilaterally. Neuro oriented x3, CN's II-XII intact bilaterally, moves all extremities and no sensory deficits noted Sensorium / Orientation: alert Motor Exam: strength 5/5 throughout Psych mental status grossly normal MDM MDM MDM Narrative Medical decision making narrative: Differential diagnosis includes periprosthetic fracture, dislocation, pelvic fracture, and sprain. X-rays of the right hip will be obtained to assess for fracture and dislocation. Radiography Diagnostic Testing: X-rays of the right hip were obtained. There are 3 views. 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 There is no periprosthetic fracture. Postreduction x-rays of the right hip were obtained. There are 3 views. On my independent rotation, there is good reduction of the hip prosthesis. There is no periprosthetic fracture noted. Treatment and Re-Evaluation Narrative: Patient was given morphine. Patient was advised of the risks and benefits of sedation. Patient is agreeable to procedural sedation and reduction of the hip. Patient was given the opportunity ask questions. Patient had no further questions. Patient was placed on continuous cardiac and pulse oximeter monitors. Patient was placed on oxygen by nasal cannula. Patient was given 80 mg of propofol. After adequate sedation, the dislocation was reduced using traction countertraction. Knee immobilizer was applied. Patient tolerated procedure well. There were no hypoxic episodes noted. Total sedation time was 11 minutes. Repeat x-rays will be obtained to assess for reduction. There is good reduction. Patient was instructed to continue to wear his knee immobilizer. Patient was instructed to follow-up with his orthopedic surgeon in 5 to 7 days. Patient was instructed to return if worse in any way. Patient understood and was agreeable with the plan. All questions were answered. Procedures Procedural Sedation 1 (Initial Baseline): Consent Signed: Yes Any Problems With Anesthesia: No You/Your family experience fever (hyperthermia) w/anesthesia: No Sedation medication: Propofol Dose: 80 Route: IV Maliampati Score: Class II ASA Classification: II Discharge Plan Triage Chief Complaint: Lower Extremity Injury ED Provider: Marcelino Ann Dx/Rx/DC Orders Clinical Impression: Dislocation of hip, right, closed, Hypertension Instructions: ED Hip Replace Dislocation Reduc Prescriptions: No Action losartan 50 mg tablet 100 mg PO DAILY atorvastatin 40 mg tablet 40 mg PO QHS Patient Comments: TAKE 1 TABLET BY MOUTH AT BEDTIME metformin 500 mg tablet 1,000 mg PO BID metoprolol succinate 100 mg tablet extended release 24 hr 100 mg PO DAILY glimepiride 2 mg tablet 2 mg PO DAILY warfarin 2 mg Tablet 6 mg PO QMWF warfarin 2 mg Tablet 4 mg PO SUTUTHSA magnesium 500 mg tablet 15 mg PO DAILY amlodipine 5 mg tablet 5 mg PO DAILY acetaminophen 325 mg Tablet 1,000 mg PO Q8H PRN PRN (Reason: Pain 1-10 Or Fever >100.7) Qty: 0 0RF oxycodone 5 mg Tablet 5 mg PO Q4H PRN PRN (Reason: Pain Score 4-10) 3 Days Qty: 12 0RF aspirin [Adult Low Dose Aspirin] 81 mg tablet,delayed release (DR/EC) 81 mg PO BIDCM Qty: 30 0RF Rx Instructions: Take twice daily until your INR is between 2 and 3. Then resume daily dosing. doxycycline monohydrate 100 mg capsule 100 mg PO BID Qty: 14 0RF Primary Care Provider: Neymar De Leon Referrals: Neymar De Leon MD [Primary Care Provider, Medical] - 1-2 Weeks Hugo Bradley MD [Med Staff - Active Staff, Orthopedics] - 5-7 Days Print Language: Italian Disposition Disposition: Home, Self Care
--- OUTSIDE RECORDS SUMMARY | 2025-05-13 22:06 | XMS RPT_ITS | CCD ---
Author Organization [facility] Care Team Providers Care Bottom Presser Name Role Phone Andres, Linda Unavailable Unavailable Tavallaee, Neymar Princess Unavailable Unavailable Tavallaee, Neymar Unavailable Unavailable Tavallaee, Neymar Princess Unavailable Unavailable Tavallaee, Neymar Unavailable Unavailable Tavallaee, Neymar Princess Unavailable Unavailable Tavallaee, Neymar M Unavailable Unavailable Unavailable Unavailable Unavailable Unavailable Unavailable TavallaeeNeymar Attending Unavailable Tavallaee, Neymar Referring Unavailable Tavallaee, Neymar Primary Care Unavailable TavallaeeNeymar Attending Unavailable Tavallaee, Neymar Referring Unavailable Tavallaee, Neymar Primary Care Unavailable TavallaeeMeNeymar Attending Unavailable Tavallaee, Neymar Referring Unavailable Tavallaee, Neymar Primary Care Unavailable Tavallaee Neymar RUIZ Primary Care Provider [phone] Neymar Xavier MD Unavailable [phone] Jessicaallpatrice, Dr. Neymar Pérez Primary Care Unavailable Tavallaee, [...] Primary Care Unavailable Tavallaee, Dr. Neymar Pérez Primary Care [...] Primary Care Unavailable TAVALLAEENEYMAR [facility] Emergency Provider Duc RUIZ, Dr. Blackmon Primary Care Provider Dr. Zeferino Estrada DO Admit Provider Unavail able Estrada DO, Dr. Mcgarry Attending Provider Unav ailable [facility] DO, Dr. Ritter Emergency Provider Duc RUIZ, Dr. Blackmon Primary Care Provider Estrada DO, Dr. Mcgarry Admit Provider Unavail able Estrada DO, Dr. Mcgarry Other Provider Unavail able Samia CORONA, Dr. Benson Attending Provider Samia CORONA, Dr. Benson Other Provider Skyler RUIZ, Dr. Gomez Other Provider Sue RUIZ, Dr. Estrella Other Provider Lennox RUIZ, Dr. Ruelas Other Provider Cristóbal CORONA, Dr. Tucker Other Provider [phone] Sanjiv RUIZ, Dr. Zeferino Kirby Other Provider Chris RUIZ, Dr. Castanon Other Provider [phone] Andria RUIZ, Dr. Mathew Other Provider [phone] Bhavani RUIZ, Dr. Irizarry Other Provider Aggie RUIZ, Dr. Cabrera Other Provider Iraj RUIZ, Dr. Cardona Other Provider Dr. Zachary Jones MD Other Provider Cristopher RUIZ, Dr. Desai Other Provider [phone] Renetta Argueta MD Other Provider Unavailabl crystal West MD, Dr. Danielle Other Provider [phone] Dr. Mateus Antonio MD Other Provider Dr. Darrell Karimi MD Other Provider Rah RUIZ, Dr. Mina Other Provider Dr. Ronald Archer DO Other Provider Dr. Jessica Keys MD Other Provider Dr. Irene Silva MD Other Provider Dr. Jurgen Leblanc DO Other Provider Ethan RUIZ, Dr. Castillo Other Provider [phone] Tin RUIZ, Dr. Rolon Other Provider Dr. Garrett Ambrocio DO Attending Provider Duc RUIZ, Neymar M Primary Care Provider Duc RUIZ, Neymar M Unavailable Tim RN, Diann Unavailable Tim RN, Diann Unavailable TAVALLAEE, NEYMAR M Attending Unavailable TAVALLAEE, [...] Unavailable TAVALLAEE, NEYMAR M Primary Care Unavailable Zeferino Estrada Consulting Unavailable Zeferino Estrada Admitting Unavailable Tavallaee, Neymar Primary Care Unavailable Marcelino Gracia Attending Unavailable Jason Holland Consulting Unavailable Sameer Rogers [...] Antonio Consulting Unavailable Darrell Karimi Consulting Unavailable Rah, Leopoldo Consulting Unavailable Gianni, Ronald Consulting Unavailable Jessica Keys Consulting Unavailable Irene Silva Consulting Unavailable Jurgen Leblanc Consulting Unavailable Jonathan Long Consulting Unavailable Gonzales Castle Consulting Unavailable Marcelino Gracia Consulting Unavailable Tavallaee, Neymar Primary Care Unavailable Hugo Bradley Consulting Unavailable Marcelino Gracia Attending Unavailable Nitisheri, Marcelino Admitting Unavailable Jopperi, Marcelino Consulting Unavailable Zeferino Estrada Attending Unavailable Garrett Ambrocio Attending Unavailable Samia Marcelino Referring Unavailable Zeferino Estrada Consulting Unavailable Zeferino Estrada Admitting Unavailable Tavallaee, Neymar Primary Care Unavailable Marcelino Gracia Attending Unavailable Tavallaee, Neymar Primary Care Unavailable Hugo Bradley Consulting Unavailable Marcelino Gracia Attending Unavailable Marcelino Gracia Admitting Unavailable TAVALLAEE, NEYMAR M Referring Unavailable TAVALLAEE, [...] Unavailable TAVALLAEE, NEYMAR M Primary Care Unavailable Tavallaee , Dr. Blackmon Primary Care Physician Dr. Jaydon Barney MD Emergency Department Physician Dr. Marcelino Gracia DO Admitting Physician Dr. Marcelino Gracia DO Attending Physician [phone] Hugo Bradley MD Nurse Practitioner [phone] [address]. Marcelino Gracia DO Nurse Practitioner Allergies Allergy Classification Reported Allergen(s) Allergy Type Date of Onset Reaction(s) Facility adalimumab (7 sources) adalimumab; Translations: [Humira] Drug Allergy Rash [facility] Work Phone: (20 sources) adalimumab; Translations: [Humira] Drug Allergy Rash [facility] Work Phone: (20 sources) adalimumab; Translations: [ADALIMUMAB] Drug Allergy 07-30-2022 Rash [facility] Medications Current Medications Medication Drug Class(es) Dates Sig (Normalized) Sig (Original) acetaminophen 325 mg oral tablet (1 source) Start: 04-21-2025 Start: 04-21-2025 amLODIPine 5 mg oral tablet (4 sources) Dihydropyridine Calcium Channel Josefina Start: 03-16-2025 take 1 tablet by mouth once daily amoxicillin 875 mg / clavulanate 125 mg oral tablet (1 source) Penicillin-class Antibacterial Start: 04-07-2023 End: 04-14-2023 take 1 tablet by mouth twice daily amoxicillin-pot clavulanate (Augmentin) 875-125 mg tablet Indications: Cellulitis, unspecified cellulitis site Take 1 tablet (875 mg) by mouth 2 times a day for 7 days. 14 tablet 0 04/07/2023 04/14/2023 Active aspirin 81 mg delayed release oral tablet (20 sources) Platelet Aggregation Inhibitor, Nonsteroidal Anti-inflammatory Drug Start: 04-21-2025 take 2 tablets by mouth twice daily Start: 04-19-2025 End: 04-21-2025 Aspirin (Adult Low Dose Aspi rin) 81 mg tablet,delayed release (DR/EC) Discontinued 81 mg PO DAILY April 18, 2025 11:00pm April 21, 2025 11:04am low dose atorvastatin 40 mg oral tablet (20 sources) HMG-CoA Reductase Inhibitor Start: 03-06-2025 atorvastatin (Lipito r) 40 mg tablet Indications: Hypercholesterolemia TAKE 1 TABLET AT BEDTIME 90 tablet 2 03/06/2025 Active Start: 05-14-2022 End: 02-13-2025 take 1 tablet by mouth once daily at bedtime atorvastatin (Lipitor) 40 mg tablet Indications: Hypercholesterolemia Take 1 tablet (40 mg) by mouth once daily at bedtime. 90 tablet 3 02/13/2025 Active 1 ml dexamethasone phosphate 4 mg/ml injection (1 source) Corticosteroid Start: 04-07-2023 dexAMETHasone (Decadron) injection 4 mg Start: 04-07-2023 dexAMETHasone (Decadron) injection 4 mg doxycycline monohydrate 100 mg oral capsule (1 source) Tetracycline-class Drug Start: 04-21-2025 take 1 capsule b y mouth twice daily Start: 04-21-2025 take 1 capsule by mouth twice daily erythromycin 0.005 mg/mg ophthalmic ointment (14 sources) Macrolide, Macrolide Antimicrobial Start: 02-24-2024 End: 05-02-2025 erythromycin (Romycin) 5 mg/gram (0.5 %) ophthalmic ointment Apply 7 cm to both eyes 1 time. 02/24/2024 05/02/2025 Discontinued (Therapy completed) glimepiride 2 mg oral tablet (20 sources) [...] take 1 tablet by mouth once daily losartan potassium 50 mg oral tablet (20 [...] 2 tablets by mo uth once daily take 1 tablet by serina th in the morning losartan (Cozaar) 50 mg tablet Take 1 tablet (50 mg) by mouth in the morning and 1 tablet (50 mg) before bedtime. 0 Active take 1 tablet by serina th once daily Losartan Potassium 50 MG Oral Tablet TAKE 1 TABLET DAILY. Quantity: 90 Refills: 3 Ordered: 18-Jul-2021 Neymar Xavier MD Active Magnesium (1 source) Start: 04-19-2025 magnesium oxide 400 mg oral tablet (20 [...] mg oral tablet (20 sources) Biguanide Start: 05-20-2022 End: 01-18-2024 take 2 tablets by mouth twice daily metFORMIN (Glucophage) 500 mg tablet Indications: Type 2 diabetes mellitus with hyperglycemia, without long-term current use of insulin (Multi) Take 2 tablets (1,000 mg) by mouth 2 times a day. 360 tablet 3 12/20/2024 Active 24 hr metoprolol succinate 100 mg [...] 1 tablet by serina th once daily take 1 tablet by serina th twice [...] Daily Quantity: 135 Refills: 3 Ordered: 18-Jul-2021 Neymar Xavier MD Active multivit-min/ferrous fumarat e (MULTI VITAMIN ORAL) (20 sources) take 1 tablet by mouth once in the morning multivit-min/ferrous fumarate (MULTI VITAMIN ORAL) Take 1 tablet by mouth in the morning. Active take 1 tablet by serina th once in the morning multivit-min/ferrous fumarate (MULTI VIT MORENO ORAL) Take 1 tablet by mouth in the morning. 0 Active ofloxacin 3 mg/ml ophthalmic solution (3 sources) Quinolone Antimicrobial Start: 10-03-2024 End: 05-02-2025 take 1 drop(s) into the eye(s) four times daily ofloxacin (Ocuflox) 0.3 % ophthalmic solution instill 1 drop into left eye 4 times daily 10/03/2024 05/02/2025 Discontinued (Med List Cleanup) oxyCODONE hydrochloride 5 mg oral tablet (1 source) Opioid Agonist Start: 04-21-2025 take 1 tablet by mouth every four hours as needed for pain Start: 04-21-2025 take 1 tablet by mouth every f our hours as needed for pain prednisoLONE acetate 10 mg/ml ophthalmic suspension (3 sources) Corticosteroid Start: 10-03-2024 End: 05-02-2025 take 1 drop(s) into the eye(s) four times daily prednisoLONE acetate (Pred-Forte) 1 % ophthalmic suspension instill 1 drop into left eye 4 times daily 10/03/2024 05/02/2025 Discontinued (Med List Cleanup) predniSONE 20 mg oral tablet (14 sources) Start: 09-22-2024 End: 05-02-2025 take 2 tablets by mouth once daily [...] 04/12/2023 Active valACYclovir 1000 mg oral tablet (3 sources) Herpesvirus Nucleoside Analog DNA Polymerase Inhibitor, Herpes Simplex Virus Nucleoside Analog DNA Polymerase Inhibitor, Herpes Zoster Virus Nucleoside Analog DNA Polymerase Inhibitor Start: 10-03-2024 End: 05-02-2025 take 1 tablet by mouth three times daily valACYclovir (Valtrex) 1 gram tablet Take 1 tablet (1,000 mg) by mouth 3 times a day. 10/03/2024 05/02/2025 Discontinued (Med List Cleanup) warfarin sodium 2 mg oral tablet (20 [...] 01-18-2024 take 2 tablets by mouth once Start: 05-20-2022 take 3 tablets by mouth once Warfarin Sodium 2 MG Oral Tablet Take [...] Sodium 2 MG Oral Tablet 3 TABS [id number]; 4 TABS WED Quantity: 360 Refills: 3 Ordered: 30-Jul-2020 Neymar Xavier MD Active Completed/Discontinued Medications Medication Drug Class(es) Dates Sig (Normalized) Sig (Original) flu vacc [id number], 65yr up,-PF (Fluzone High-Dose Quad) syringe (3 sources) Start: 03-17-2023 End: 05-18-2023 flu vacc [id number], 65yr up,-PF (Fluzone High-Dose Quad) syringe INTRAMUSCULARLY .7 mL 0 03/17/2023 05/18/2023 Discontinued (Therapy completed) Start: 03-17-2023 End: 03-16-2024 flu vacc [id number], 65yr up, -PF (Fluzone High-Dose Quad) syringe INTRAMUSCULARLY .7 mL 0 03/17/2023 03/16/2024 Active gabapentin 400 mg oral capsule (11 sources) Anti-epileptic Agent take 1 capsule by mouth three times daily Gabapentin 400 MG Oral Capsule TAKE 1 CAPSULE 3 TIMES DAILY. Quantity: 90 Refills: 2 Neymar Xavier MD Active 12 hr guaiFENesin 1200 mg extended release oral tablet (13 sources) Start: End: take 1 tablet by mouth twice daily, then take 1 tablet by mouth every twelve hours Guaifenesin (Mucus Relief Er) 1,200 mg Tablet Extended Release 12hr Discontinued 1200 mg PO TWICE A DAY September 21, 2024 11:00pm April 19, 2025 10:44am End: 05-02-2025 take 2 tablets by mouth twice daily guaiFENesin (Mucinex) 600 mg 12 hr tablet Take 2 tablets (1,200 mg) by mouth 2 times a day. Do not crush, chew, or split. 05/02/2025 Discontinued (Therapy completed) iohexol (OMNIPaque) 350 mg iodine/mL solution 70 mL (1 source) Start: 10-13-2024 End: 10-13-2024 70 mL, intravenous, Once in imaging, Starting on Emelina 10/13/24 at 1501, For 1 dose levoFLOXacin 750 mg oral tablet (5 sources) Quinolone Antimicrobial Start: 09-22-2024 End: 04-19-2025 take 1 tablet by mouth once daily Levofloxacin 750 mg tablet Discontinued 750 mg PO DAILY 4 September 21, 2024 11:00pm April 19, 2025 10:44am Multi Vitamin Oral Tablet (11 sources) take [...] 0 Refills: 0 Ordered: 27-Apr-2019 DO Active oseltamivir 30 mg oral capsule (11 sources) Neuraminidase Inhibitor Start: 09-23-19 End: 04-19-20 take 1 capsule by mouth twice daily Oseltamivir 30 mg Capsule Discontinued 30 mg PO TWICE A DAY 6 September 21, 2024 11:00pm April 19, 2025 10:45am simvastatin 20 mg oral tablet (20 sources) HMG-CoA Reductase Inhibitor take 1 tablet by mouth once daily in the evening Simvastatin 20 MG Oral Tablet TAKE 1 TABLET DAILY IN THE EVENING. Quantity: 90 Refills: 3 Ordered: 07-Jul-2021 Duc RUIZ, Neymar Active Problems Active Problems Problem Classification Problem Date Documented Date Episodic/Chronic Abdominal pain (3 sources) Right flank pain; Translations: [Unspecified abdominal pain] 05-28-2022 Episodic Cardiac dysrhythmias (20 sources) Chronic atrial fibrillation; Translations: [Atrial fibrillation] Onset: 07-30-2022 01-12-2023 Chronic Chronic obstructive pulmonary disease and bronchiectasis (6 sources) Acute exacerbation of chronic obstructive airways disease; Translations: [Chronic obstructive pulmonary disease with (acute) exacerbation] Onset: 09-28-2024 09-20-2024 Chronic Coagulation and hemorrhagic disorders (3 sources) Coagulation defect, unspecified; Translations: [Blood coagulation disorder] Onset: 04-21-2025 04-29-2025 Chronic Complication of device; implant or graft (4 sources) Broken internal joint prosthesis, other site, initial encounter; Translations: [Other mechanical complication of internal right hip prosthesis, initial encounter] Onset: 04-21-2025 04-29-2025 Episodic Deficiency and other anemia (2 sources) Anemia of chronic disease; Translations: [Anemia in other chronic diseases classified elsewhere] 04-29-2025 Chronic Deficiency and other anemia (1 source) [...] [Benign essential hypertension] Onset: 07-30-2022 01-12-2023 Chronic Fracture of neck of femur (hip) (3 sources) Closed fracture of hip; Translations: [Fracture of unspecified part of neck of right femur, subsequent encounter for closed fracture with routine healing] Onset: 05-02-2025 05-02-2025 Episodic Osteoarthritis (20 sources) Degenerative joint disease involving multiple joints; Translations: [Osteoarthrosis, generalized, site unspecified] Onset: 07-30-2022 07-30-2022 Chronic Other aftercare (20 sources) Patient encounter status; Translations: [Long-term (current) use of other medications] Onset: 06-27-2019 09-16-2023 Episodic Comment on above: 1.78; Other aftercare (5 sources) Long-term current use of anticoagulant; 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] 05-28-2022 Episodic Other and unspecified benign neoplasm (9 sources) Polyp of colon; Translations: [Benign neoplasm of colon] Episodic Other bone disease and musculoskeletal deformities (5 sources) Other specified disorders of bone, unspecified site; Translations: [Lytic lesion of bone on x-ray] Onset: 04-21-2025 09-21-2024 Episodic Other circulatory disease (2 sources) H/O: hypertension; Translations: [Personal history of other diseases of the circulatory system] 04-29-2025 Episodic Other connective tissue disease (1 source) Presence of unspecified artificial hip joint; Translations: [Presence of unspecified artificial hip joint] Onset: 04-21-2025 Chronic Other connective tissue disease (1 source) Presence of right artificial hip joint; Translations: [Presence of right artificial hip joint] Onset: 04-21-2025 Chronic Other connective tissue disease (2 sources) History of revision of right total hip arthroplasty; Translations: [Presence of right artificial hip joint] 04-29-2025 Chronic Other connective tissue disease (1 source) Tenosynovitis [...] injuries and conditions due to external causes (3 sources) Injury of musculoskeletal system; Translations: [Other injury of unspecified body region, initial encounter] 05-28-2022 Episodic Other lower respiratory disease (5 sources) Imaging of lung abnormal ; Translations: [Other nonspecific abnormal finding of lung field] 09-27-2024 Episodic Other nervous system disorders (5 sources) Metabolic encephalopathy; Translations: [Metabolic encephalopathy] 09-20-2024 Chronic Other nervous system disorders (1 source) Metabolic encephalopathy; Translations: [Metabolic encephalopathy] Onset: 09-28-2024 Chronic Other nutritional; endocrine; and metabolic disorders (5 sources) Body mass index 25-29 - overweight; Translations: [Overweight] 09-20-2024 Episodic Other nutritional; endocrine; and metabolic disorders (3 sources) H/O: diabetes mellitus; Translations: [Personal history of other endocrine, nutritional and metabolic disease] 05-28-2022 Episodic Other skin disorders (2 sources) Localized swelling of left hand; Translations: [Localized swelling, mass and lump, left upper limb] 04-07-2023 Episodic Residual codes; unclassified (14 sources) History finding; Translations: [Other specified conditions influencing health status] Episodic Skin and subcutaneous tissue infections (1 [...] unspecified; Translations: [Anemia, unspecified] Onset: 09-09-2023 Episodic Fluid and electrolyte disorders (4 sources) Dehydration; Translations: [Dehydration] Onset: 09-28-2024 09-20-2024 Episodic Influenza (6 sources) Influenza due to Influenza A virus; Translations: [Influenza due to other identified influenza virus with other respiratory manifestations] Onset: 09-28-2024 09-20-2024 Episodic Other and unspecified benign neoplasm (20 [...] of lung field] Onset: 09-27-2024 Episodic Other lower respiratory disease (1 source) Shortness of breath; Translations: [Shortness of breath] Onset: 10-24-2024 Episodic Other nutritional; endocrine; and metabolic disorders (1 source) Overweight; Translations: [Overweight] Onset: 09-28-2024 Episodic Other screening for suspected conditions (not [...] caused by tuberculosis or sexually transmitted disease) (12 sources) Pneumonia; Translations: [Pneumonia, unspecified organism] Onset: 09-27-2024 09-20-2024 Episodic Pulmonary heart disease (1 source) Personal history of pulmonary embolism; Translations: [Personal history of pulmonary embolism] Onset: 04-01-2022 Episodic Respiratory failure; insufficiency; arrest (adult) (6 sources) Acute respiratory failure; Translations: [Acute respiratory failure with hypoxia] Onset: 09-28-2024 09-20-2024 Episodic Septicemia (except in labor) (7 sources) Sepsis; Translations: [Sepsis, unspecified organism] Onset: 09-28-2024 09-20-2024 Episodic Spondylosis; intervertebral disc disorders; other back problems (20 sources) Low back pain; Translations: [Lumbago] Onset: 07-30-2022 07-30-2022 Episodic Unclassified (20 sources) Onset: 01-12-2023 Resolved: 05-02-2025 01-12-2023 NEGATED: Highlighted row has not occurred!Residual codes; unclassified (20 sources) Disease Episodic Results Test Name Value Interpretation Reference Range Facility Prothrombin Time w/INRon INR Normal [facility] Comment on above: Result Comment: Canc elled via OM: Order cancelled - Patient discharged Performed By: #### L 503.7505, L501.9100, L503.0106, L501.9985, L501.9520, L505.5000 #### [facility] [address] [place], [address] PROTIME Normal 11.7-14.9 [facility] Comment on above: Result Comment: Canc elled via OM: Order cancelled - Patient discharged Performed By: #### L 503.7505, L501.9100, L503.0106, L501.9985, L501.9520, L505.5000 #### [facility] [address] [place], [address] Prothrombin Time w/INRon INR Normal [facility] Comment on above: Result Comment: Canc elled via OM: Order cancelled - Patient discharged Performed By: #### L 503.7505, L501.9100, L503.0106, L501.9985, L501.9520, L505.5000 #### [facility] [address] [place], [address] PROTIME Normal 11.7-14.9 [facility] Comment on above: Result Comment: Canc elled via OM: Order cancelled - Patient discharged Performed By: #### L 503.7505, L501.9100, L503.0106, L501.9985, L501.9520, L505.5000 #### [facility] [address] [place], [address] Absolute lymphocyte countOrd ered By: Hugo Bradley on 04-21-2025 Lymphocytes Auto (Unsp spec) [#/Vol] 0.84 10*3/uL 0.83-4.51 [facility] Absolute neutrophil countOrd ered By: Hugo Bradley on 04-21-2025 Neutrophils (Bld) [#/Vol] 14.5 10*3/uL High 2.0-7.7 [facility] Anion gap in Serum or Plasma Ordered By: Hugo Bradley on 04-21-2025 Anion gap [Moles/Vol] 14 mmol/L 5-15 [facility] Automated lymphocyte count a s percentage of total leukocytesOrdered By: Hugo Bradley on 04-21-2025 Lymphocytes/100 WBC Auto (Unsp spec) 5.1 % Low 19-41 [facility] BUN/creatinine ratioOrdered By: Hugo Bradley on 04-21-2025 Urea nitrogen/Creatinine [Mass ratio] 21.2 mg/mg High 04-17 [facility] Basic Metabolic Profile (BMP )on 04-21-2025 BUN/CRE 21.2 RATIO High 04-17 [facility] Comment on above: Performed By: #### L 503.7505, L501.9100, L503.0106, L501.9985, L501.9520, L505.5000 #### [facility] [address] [place], [address] Calcium [Mass/Vol] 8.6 mg/dL Normal 7.6-11.0 [facility] Comment on above: Performed By: #### L 503.7505, L501.9100, L503.0106, L501.9985, L501.9520, L505.5000 #### [facility] [address] [place], [address] Chloride [Moles/Vol] 98 mmol/L Normal 98-108 [facility] Comment on above: Performed By: #### L 503.7505, L501.9100, L503.0106, L501.9985, L501.9520, L505.5000 #### [facility] [address] [place], [address] CO2 [Moles/Vol] 22.6 mmol/L Normal 21.0-32.0 [facility] Comment on above: Performed By: #### L 503.7505, L501.9100, L503.0106, L501.9985, L501.9520, L505.5000 #### [facility] [address] [place], [address] Creatinine [Mass/Vol] 0.87 mg/dL Normal 0.70-1.20 [facility] Comment on above: Performed By: #### L 503.7505, L501.9100, L503.0106, L501.9985, L501.9520, L505.5000 #### [facility] [address] [place], [address] ECRCL 84.57 ml/min Normal 50-250 [facility] Comment on above: Performed By: #### L 503.7505, L501.9100, L503.0106, L501.9985, L501.9520, L505.5000 #### [facility] [address] [place], [address] GAP 14 Normal 5-15 [facility] Comment on above: Performed By: #### L 503.7505, L501.9100, L503.0106, L501.9985, L501.9520, L505.5000 #### [facility] [address] [place], [address] GFR/1.73 sq M.predicted among non-blacks MDRD (S/P/Bld) [Vol rate/Area] 88 mL/min/{1.73_m2} Normal >60 [facility] Comment on above: Result Comment: mL/m in/1.73m2 CKD-EPI Creatinine Equation (2020) Performed By: #### L 503.7505, L501.9100, L503.0106, L501.9985, L501.9520, L505.5000 #### [facility] [address] [place], [address] Glucose [Mass/Vol] 198 mg/dL High 70-99 [facility] Comment on above: Performed By: #### L 503.7505, L501.9100, L503.0106, L501.9985, L501.9520, L505.5000 #### [facility] [address] [place], [address] Potassium [Moles/Vol] 4.6 mmol/L Normal 3.3-5.1 [facility] Comment on above: Performed By: #### L 503.7505, L501.9100, L503.0106, L501.9985, L501.9520, L505.5000 #### [facility] [address] [place], [address] Sodium [Moles/Vol] 135 mmol/L Normal 133-145 [facility] Comment on above: Performed By: #### L 503.7505, L501.9100, L503.0106, L501.9985, L501.9520, L505.5000 #### [facility] [address] [place], [address] Urea nitrogen [Mass/Vol] 18 mg/dL Normal 4-19 [facility] Comment on above: Performed By: #### L 503.7505, L501.9100, L503.0106, L501.9985, L501.9520, L505.5000 #### [facility] [address] [place], [address] Basophil percentageOrdered B y: Hugo Bradley on 04-21-2025 Basophils/100 WBC (Bld) 0.1 % 0-1 [facility] Bedside Glucoseon 04-21-2025 FINGERSTICK GLU 144 mg/dL High 74-106 [facility] Comment on above: Result Comment: ANDREW GEMENT OF PATIENT CARE PER NURSING PROTOCOL Performed By: #### L 503.7505, L501.9100, L503.0106, L501.9985, L501.9520, L505.5000 #### [facility] [address] [place], [address] FINGERSTICK GLU 221 mg/dL High 74-106 [facility] Comment on above: Result Comment: ANDREW GEMENT OF PATIENT CARE PER NURSING PROTOCOL Performed By: #### L 503.7505, L501.9100, L503.0106, L501.9985, L501.9520, L505.5000 #### [facility] [address] [place], [address] CBC W/Diff, Automatedon 10-2 -2024 Absolute Lymph 0.84 X10 3/uL Normal 0.83-4.51 [facility] Comment on above: Performed By: #### L 503.7505, L501.9100, L503.0106, L501.9985, L501.9520, L505.5000 #### [facility] [address] [place], [address] Absolute Neut 14.5 X10 3/uL High 2.0-7.7 [facility] Comment on above: Performed By: #### L 503.7505, L501.9100, L503.0106, L501.9985, L501.9520, L505.5000 #### [facility] [address] [place], [address] Basophils/100 WBC (Bld) 0.1 % Normal 0-1 [facility] Comment on above: Performed By: #### L 503.7505, L501.9100, L503.0106, L501.9985, L501.9520, L505.5000 #### [facility] [address] [place], [address] Eosinophils/100 WBC (Bld) 0.0 % Normal 0-5 [facility] Comment on above: Performed By: #### L 503.7505, L501.9100, L503.0106, L501.9985, L501.9520, L505.5000 #### [facility] [address] [place], [address] Erythrocyte distribution width (RBC) [Ratio] 13.3 % Normal 11.6-14.6 [facility] Comment on above: Performed By: #### L 503.7505, L501.9100, L503.0106, L501.9985, L501.9520, L505.5000 #### [facility] [address] [place], [address] Hematocrit (Bld) [Volume fraction] 35.7 % Low 40-54 [facility] Comment on above: Performed By: #### L 503.7505, L501.9100, L503.0106, L501.9985, L501.9520, L505.5000 #### [facility] [address] [place], [address] Hemoglobin (Bld) [Mass/Vol] 12.1 g/dL Low 13.0-16.5 [facility] Comment on above: Performed By: #### L 503.7505, L501.9100, L503.0106, L501.9985, L501.9520, L505.5000 #### [facility] [address] [place], [address] IG% 0.400 Normal 0.0-0.9 [facility] Comment on above: Result Comment: IG% - Immature Granulocytes (promyelocytes, myelocytes and metamyelocytes) > 1% indicates that a LEFT SHIFT is Present. Performed By: #### L 503.7505, L501.9100, L503.0106, L501.9985, L501.9520, L505.5000 #### [facility] [address] [place], [address] Lymphocytes/100 WBC (Bld) 5.1 % Low 19-41 [facility] Comment on above: Performed By: #### L 503.7505, L501.9100, L503.0106, L501.9985, L501.9520, L505.5000 #### [facility] [address] [place], [address] MCH (RBC) [Entitic mass] 31.5 pg Normal 27.0-32.0 [facility] Comment on above: Performed By: #### L 503.7505, L501.9100, L503.0106, L501.9985, L501.9520, L505.5000 #### [facility] [address] [place], [address] MCHC (RBC) [Mass/Vol] 33.9 g/dL Normal 32-36 [facility] Comment on above: Performed By: #### L 503.7505, L501.9100, L503.0106, L501.9985, L501.9520, L505.5000 #### [facility] [address] [place], [address] MCV (RBC) [Entitic vol] 93.0 fL Normal 80-94 [facility] Comment on above: Performed By: #### L 503.7505, L501.9100, L503.0106, L501.9985, L501.9520, L505.5000 #### [facility] [address] [place], [address] Monocytes/100 WBC (Bld) 7.2 % Normal 0-10 [facility] Comment on above: Performed By: #### L 503.7505, L501.9100, L503.0106, L501.9985, L501.9520, L505.5000 #### [facility] [address] [place], [address] Neutrophils/100 WBC (Bld) 87.2 % High 47-70 [facility] Comment on above: Performed By: #### L 503.7505, L501.9100, L503.0106, L501.9985, L501.9520, L505.5000 #### [facility] [address] [place], [address] Nucleated RBC (Bld) [#/Vol] 0 10*3/uL Normal 0-5 [facility] Comment on above: Performed By: #### L 503.7505, L501.9100, L503.0106, L501.9985, L501.9520, L505.5000 #### [facility] [address] [place], [address] Platelet mean volume (Bld) [Entitic vol] 11.2 fL Normal 6.2-12.0 [facility] Comment on above: Performed By: #### L 503.7505, L501.9100, L503.0106, L501.9985, L501.9520, L505.5000 #### [facility] [address] [place], [address] Platelets (Bld) [#/Vol] 251 10*3/uL Normal 150-450 [facility] Comment on above: Performed By: #### L 503.7505, L501.9100, L503.0106, L501.9985, L501.9520, L505.5000 #### [facility] [address] [place], [address] RBC (Bld) [#/Vol] 3.84 10*6/uL Low 4.6-6.[address] [facility] Comment on above: Performed By: #### L 503.7505, L501.9100, L503.0106, L501.9985, L501.9520, L505.5000 #### [facility] [address] [place], [address] RDW SD 45.3 fl High 35.1-43.9 [facility] Comment on above: Performed By: #### L 503.7505, L501.9100, L503.0106, L501.9985, L501.9520, L505.5000 #### [facility] [address] [place], [address] WBC (Bld) [#/Vol] 16.6 10*3/uL High 4.4-11.[address] [facility] Comment on above: Performed By: #### L 503.7505, L501.9100, L503.0106, L501.9985, L501.9520, L505.5000 #### [facility] [address] [place], [place], [address] Carbon dioxide, total [Moles /volume] in Central venous bloodOrdered By: Hugo Bradley on 04-21-2025 CO2 [Moles/Vol] 22.6 mmol/L 21.0-32.0 [facility] Chest without Contraston Chest without Contrast [facility] [address] [place] [address] Chest without Contrast MR#: [id number] Acct: [id number] Name: HATTIE VALDERRAMA Rep #: [id number] : 1945 M 80 From: Dedrick Yoo MD PCP: Dr. Neymar Xavier MD Status: ADM IN Study: Chest without Contrast Date of Exam: 04/21/25 Exam# [id number] Ordering Dr: Marcelino Gracia DO PROCEDURE: CHEST WITHOUT CONTRAST 04/21/2025 REASON FOR EXAM: RIGHT SCAPULA LYTIC LESION FOLLOW UP TECHNIQUE: Chest CT without contrast. Coronal and Sagittal reconstruction series were provided. One or more dose reduction techniques were used (e.g., Automated exposure control, adjustment of the mA and/or kV according to patient size, use of iterative reconstruction technique RADIATION DOSE SUMMARY: CTDlvol: 17.92 mGy DLP: 725.62 mGycm COMPARISON: 09/01/2024 FINDINGS: The bone windows show no interval change in the appearance of a previously noted well-defined lucent lesion in the glenoid region of the scapula. It is unchanged in size compared to the previous study, there is no irregularity of the inner border of the lesion nor is there evidence of expansion through the cortical surface since the previous study. Lung windows show chronic interstitial changes in both lung guy with interstitial edema, small pleural effusions and minimal bibasilar atelectasis. No organized infiltrate or suspicious noncalcified mass or nodule. The soft tissue windows show a normal-appearing thyroid gland. No suspicious axillary, mediastinal or perihilar adenopathy. There are calcified coronary vessels. Limited cuts through the upper abdomen do not show a suspicious abnormality. Bony structures show degenerative change, no other suspicious lucent lesion is noted. There is a stable sclerotic focus within the anterior right scapula likely a bone island CT/Chest without Contrast IMPRESSION: Coronary artery calcification (CAC) is is present Stable lucent lesion within the right scapula in the inferior glenoid region. It is unchanged in size or appearance compared to the previous study. There is no expansion through the cortical surface. The inner border of the lesion is also free of erosive or irregular changes. I suspect this is a benign lesion but another six-month follow-up could be performed for stability Mild interstitial edema with small pleural effusions and bibasilar atelectasis. Findings are consistent with pulmonary vascular congestion. Follow-up recommended to ensure complete resolution No suspicious adenopathy Degenerative bony changes Reading Location: [facility] CC: Dr. Marcelino Gracia DO; Dr. Neymar Xavier MD French Binding Folder: Signed Normal [facility] Chloride assayOrdered By: St vinita Bradley on 04-21-2025 Chloride [Moles/Vol] 98 mmol/L 98-108 [facility] Eosinophil percentageOrdered By: Hugo Bradley on 04-21-2025 Eosinophils/100 WBC (Bld) 0.0 % 0-5 [facility] Erythrocyte distribution wid th ratioOrdered By: Hugo Bradley on 04-21-2025 Erythrocyte distribution width (RBC) [Ratio] 13.3 % 11.6-14.6 [facility] Erythrocyte distribution wid th standard deviationOrdered By: Hugo Bradley on 04-21-2025 Erythrocyte distribution width (RBC) [Ratio] 45.3 fl High 35.1-43.9 [facility] Glomerular filtration rate ( GFR) estimation/1.73 sq m using serum, plasma, or whole bOrdered By: Hugo Bradley on 04-21-2025 GFR/1.73 sq M.predicted among non-blacks MDRD (S/P/Bld) [Vol rate/Area] 88 mL/min/{1.73_m2} >60 [facility] Comment on above: mL/min/1.73m2 CKD-EP I Creatinine Equation (2020) Glucose measurement at bedsi deOrdered By: Marcelino Gracia on 04-21-2025 Glucose [Mass/Vol] 144 mg/dL High 74-106 [facility] Comment on above: MANAGEMENT OF PATIEN T CARE PER NURSING PROTOCOL Hematocrit Auto (Bld) [Volum e fraction]Ordered By: Hugo Bradley on 04-21-2025 Hematocrit (Bld) [Volume fraction] 35.7 % Low 40-54 [facility] Hemoglobin measurementOrdere d By: Hugo Bradley on 04-21-2025 Hemoglobin (Bld) [Mass/Vol] 12.1 g/dL Low 13.0-16.5 [facility] Immature granulocytes/100 WB C Auto (Bld)Ordered By: Hugo Bradley on 04-21-2025 Immature granulocytes/100 WBC (Bld) 0.400 % 0.0-0.9 [facility] Comment on above: IG% - Immature Granu locytes (promyelocytes, myelocytes and metamyelocytes) > 1% indicates that a LEFT SHIFT is Present. International normalized rat io (INR) calculationOrdered By: Marcelino Gracia on 04-21-2025 INR Coag (Bld) [Relative time] 1.1 {INR} [facility] MCV (mean corpuscular volume ) determinationOrdered By: Hugo Bradley on 04-21-2025 MCV (RBC) [Entitic vol] 93.0 fL 80-94 [facility] Mean corpuscular hemoglobin (MCH) determinationOrdered By: Hugo Bradley on 04-21-2025 MCH (RBC) [Entitic mass] 31.5 pg 27.0-32.0 [facility] Mean corpuscular hemoglobin concentration (MCHC) determinationOrdered By: Hugo Bradley on 04-21-2025 MCHC (RBC) [Mass/Vol] 33.9 g/dL 32-36 [facility] Mean platelet volume determi nationOrdered By: Hugo Bradley on 04-21-2025 Platelet mean volume (Bld) [Entitic vol] 11.2 fL 6.2-12.0 [facility] Monocyte percentageOrdered B y: Hugo Bradley on 04-21-2025 Monocytes/100 WBC (Bld) 7.2 % 0-10 [facility] Neutrophil percentageOrdered By: Hugo Bradley on 04-21-2025 Neutrophils/100 WBC (Bld) 87.2 % High 47-70 [facility] Nucleated red blood cell per centageOrdered By: Hugo Bradley on 04-21-2025 Nucleated RBC/100 WBC (Bld) [Ratio] 0 % 0-5 [facility] Platelet countOrdered By: St talamantes Kirk on 04-21-2025 Platelets (Bld) [#/Vol] 251 10*3/uL 150-450 [facility] Potassium measurement (mass/ volume)Ordered By: Hugo Greenbergmer on 04-21-2025 Potassium (Unsp spec) [Mass/Vol] 4.6 mmol/L 3.3-5.1 [facility] Prothrombin Time w/INRon INR Coag (PPP) [Relative time] 1.1 {INR} Normal [facility] Comment on above: Performed By: #### L 503.7505, L501.9100, L503.0106, L501.9985, L501.9520, L505.5000 #### [facility] [address], [address] PT Coag (PPP) [Time] 14.5 s Normal 11.7-14.9 [facility] Comment on above: Performed By: #### L 503.7505, L501.9100, L503.0106, L501.9985, L501.9520, L505.5000 #### [facility] [address] [place], [address] Prothrombin timeOrdered By: Marcelino Gracia on 04-21-2025 PT Coag (PPP) [Time] 14.5 s 11.7-14.9 [facility] RBC Auto (Bld) [#/Vol]Ordere d By: Hugo Kirk on 04-21-2025 RBC (Bld) [#/Vol] 3.84 10*6/uL Low 4.6-6.[address] [facility] Serum creatinine measurement (mass/volume)Ordered By: Hugo Bradley on 04-21-2025 Creatinine [Mass/Vol] 0.87 mg/dL 0.70-1.20 [facility] Serum glucose measurement (m ass/volume)Ordered By: Hugo Bradley on 04-21-2025 Glucose [Mass/Vol] 198 mg/dL High 70-99 [facility] Serum or plasma calcium camryn urement (mass/volume)Ordered By: Hugo Bradley on 04-21-2025 Calcium [Mass/Vol] 8.6 mg/dL 7.6-11.0 [facility] Serum or plasma urea nitroge n measurement (mass/volume)Ordered By: Hugo Bradley on 04-21-2025 Urea nitrogen [Mass/Vol] 18 mg/dL 4-19 [facility] Sodium levelOrdered By: Scott Bradley on 04-21-2025 Sodium [Moles/Vol] 135 mmol/L 133-145 [facility] White blood cell (WBC) count Ordered By: Hugo Bradley on 04-21-2025 WBC (Bld) [#/Vol] 16.6 10*3/uL High 4.4-11.[address] [facility] Basic Metabolic Profile (BMP )on 04-20-2025 BUN/CRE 19.2 RATIO Normal - [facility] Comment on above: Performed By: #### L 503.7505, L501.9100, L503.0106, L501.9985, L501.9520, L505.5000 #### [facility] [address] [place], [address] Calcium [Mass/Vol] 9.1 mg/dL Normal 7.6-11.0 [facility] Comment on above: Performed By: #### L 503.7505, L501.9100, L503.0106, L501.9985, L501.9520, L505.5000 #### [facility] [address] [place], [address] Chloride [Moles/Vol] 104 mmol/L Normal 98-108 [facility] Comment on above: Performed By: #### L 503.7505, L501.9100, L503.0106, L501.9985, L501.9520, L505.5000 #### [facility] [address] [place], [address] CO2 [Moles/Vol] 25.0 mmol/L Normal 21.0-32.0 [facility] Comment on above: Performed By: #### L 503.7505, L501.9100, L503.0106, L501.9985, L501.9520, L505.5000 #### [facility] [address] [place], [address] Creatinine [Mass/Vol] 0.77 mg/dL Normal 0.70-1.20 [facility] Comment on above: Performed By: #### L 503.7505, L501.9100, L503.0106, L501.9985, L501.9520, L505.5000 #### [facility] [address] [place], [address] ECRCL 92.98 ml/min Normal 50-250 [facility] Comment on above: Performed By: #### L 503.7505, L501.9100, L503.0106, L501.9985, L501.9520, L505.5000 #### [facility] [address] [place], [address] GAP 11 Normal 5-15 [facility] Comment on above: Performed By: #### L 503.7505, L501.9100, L503.0106, L501.9985, L501.9520, L505.5000 #### [facility] [address] [place], [address] GFR/1.73 sq M.predicted among non-blacks MDRD (S/P/Bld) [Vol rate/Area] 91 mL/min/{1.73_m2} Normal >60 [facility] Comment on above: Result Comment: mL/m in/1.73m2 CKD-EPI Creatinine Equation (2020) Performed By: #### L 503.7505, L501.9100, L503.0106, L501.9985, L501.9520, L505.5000 #### [facility] [address] [place], [address] Glucose [Mass/Vol] 138 mg/dL High 70-99 [facility] Comment on above: Performed By: #### L 503.7505, L501.9100, L503.0106, L501.9985, L501.9520, L505.5000 #### [facility] [address] [place], [address] Potassium [Moles/Vol] 4.2 mmol/L Normal 3.3-5.1 [facility] Comment on above: Performed By: #### L 503.7505, L501.9100, L503.0106, L501.9985, L501.9520, L505.5000 #### [facility] [address] [place], [address] Sodium [Moles/Vol] 140 mmol/L Normal 133-145 [facility] Comment on above: Performed By: #### L 503.7505, L501.9100, L503.0106, L501.9985, L501.9520, L505.5000 #### [facility] [address] [place], [address] Urea nitrogen [Mass/Vol] 15 mg/dL Normal 4-19 [facility] Comment on above: Performed By: #### L 503.7505, L501.9100, L503.0106, L501.9985, L501.9520, L505.5000 #### [facility] [address] [place], [address] Bedside Glucoseon 04-20-2025 FINGERSTICK GLU 188 mg/dL High 74-106 [facility] Comment on above: Result Comment: ANDREW GEMENT OF PATIENT CARE PER NURSING PROTOCOL Performed By: #### L 503.7505, L501.9100, L503.0106, L501.9985, L501.9520, L505.5000 #### [facility] [address] [place], [address] FINGERSTICK GLU 143 mg/dL High 74-106 [facility] Comment on above: Result Comment: ANDREW GEMENT OF PATIENT CARE PER NURSING PROTOCOL Performed By: #### L 503.7505, L501.9100, L503.0106, L501.9985, L501.9520, L505.5000 #### [facility] [address] [place], [address] FINGERSTICK GLU 131 mg/dL High 74-106 [facility] Comment on above: Result Comment: ANDREW GEMENT OF PATIENT CARE PER NURSING PROTOCOL Performed By: #### L 503.7505, L501.9100, L503.0106, L501.9985, L501.9520, L505.5000 #### [facility] [address] [place], [address] CBC W/Diff, Automatedon 10- Absolute Lymph 1.94 X10 3/uL Normal 0.83-4.51 [facility] Comment on above: Performed By: #### L 503.7505, L501.9100, L503.0106, L501.9985, L501.9520, L505.5000 #### [facility] [address] [place], [address] Absolute Neut 7.1 X10 3/uL Normal 2.0-7.7 [facility] Comment on above: Performed By: #### L 503.7505, L501.9100, L503.0106, L501.9985, L501.9520, L505.5000 #### [facility] [address] [place], [address] Basophils/100 WBC (Bld) 0.4 % Normal 0-1 [facility] Comment on above: Performed By: #### L 503.7505, L501.9100, L503.0106, L501.9985, L501.9520, L505.5000 #### [facility] [address] [place], [address] Eosinophils/100 WBC (Bld) 1.2 % Normal 0-5 [facility] Comment on above: Performed By: #### L 503.7505, L501.9100, L503.0106, L501.9985, L501.9520, L505.5000 #### [facility] [place], [address] Erythrocyte distribution width (RBC) [Ratio] 13.4 % Normal 11.6-14.6 [facility] Comment on above: Performed By: #### L 503.7505, L501.9100, L503.0106, L501.9985, L501.9520, L505.5000 #### [facility] [address] [place], [address] Hematocrit (Bld) [Volume fraction] 36.2 % Low 40-54 [facility] Comment on above: Performed By: #### L 503.7505, L501.9100, L503.0106, L501.9985, L501.9520, L505.5000 #### [facility] [address] [place], [address] Hemoglobin (Bld) [Mass/Vol] 12.4 g/dL Low 13.0-16.5 [facility] Comment on above: Performed By: #### L 503.7505, L501.9100, L503.0106, L501.9985, L501.9520, L505.5000 #### [facility] [address] [place], [address] IG% 0.200 Normal 0.0-0.9 [facility] Comment on above: Result Comment: IG% - Immature Granulocytes (promyelocytes, myelocytes and metamyelocytes) > 1% indicates that a LEFT SHIFT is Present. Performed By: #### L 503.7505, L501.9100, L503.0106, L501.9985, L501.9520, L505.5000 #### [facility] [address] [place], [address] Lymphocytes/100 WBC (Bld) 19.0 % Normal 19-41 [facility] Comment on above: Performed By: #### L 503.7505, L501.9100, L503.0106, L501.9985, L501.9520, L505.5000 #### [facility] [address] [place], [address] MCH (RBC) [Entitic mass] 32.3 pg High 27.0-32.0 [facility] Comment on above: Performed By: #### L 503.7505, L501.9100, L503.0106, L501.9985, L501.9520, L505.5000 #### [facility] [address] [place], [address] MCHC (RBC) [Mass/Vol] 34.3 g/dL Normal 32-36 [facility] Comment on above: Performed By: #### L 503.7505, L501.9100, L503.0106, L501.9985, L501.9520, L505.5000 #### [facility] [address] [place], [address] MCV (RBC) [Entitic vol] 94.3 fL High 80-94 [facility] Comment on above: Performed By: #### L 503.7505, L501.9100, L503.0106, L501.9985, L501.9520, L505.5000 #### [facility] [address] [place], [address] Monocytes/100 WBC (Bld) 9.7 % Normal 0-10 [facility] Comment on above: Performed By: #### L 503.7505, L501.9100, L503.0106, L501.9985, L501.9520, L505.5000 #### [facility] [address] [place], [address] Neutrophils/100 WBC (Bld) 69.5 % Normal 47-70 [facility] Comment on above: Performed By: #### L 503.7505, L501.9100, L503.0106, L501.9985, L501.9520, L505.5000 #### [facility] [address] [place], [address] Nucleated RBC (Bld) [#/Vol] 0 10*3/uL Normal 0-5 [facility] Comment on above: Performed By: #### L 503.7505, L501.9100, L503.0106, L501.9985, L501.9520, L505.5000 #### [facility] [address] [place], [address] Platelet mean volume (Bld) [Entitic vol] 10.9 fL Normal 6.2-12.0 [facility] Comment on above: Performed By: #### L 503.7505, L501.9100, L503.0106, L501.9985, L501.9520, L505.5000 #### [facility] [address] [place], [address] Platelets (Bld) [#/Vol] 243 10*3/uL Normal 150-450 [facility] Comment on above: Performed By: #### L 503.7505, L501.9100, L503.0106, L501.9985, L501.9520, L505.5000 #### [facility] [address] [place], [address] RBC (Bld) [#/Vol] 3.84 10*6/uL Low 4.6-6.[address] [facility] Comment on above: Performed By: #### L 503.7505, L501.9100, L503.0106, L501.9985, L501.9520, L505.5000 #### [facility] [address] [place], [address] RDW SD 46.4 fl High 35.1-43.9 [facility] Comment on above: Performed By: #### L 503.7505, L501.9100, L503.0106, L501.9985, L501.9520, L505.5000 #### [facility] [address] [place], [address] WBC (Bld) [#/Vol] 10.2 10*3/uL Normal 4.4-11.[address] [facility] Comment on above: Performed By: #### L 503.7505, L501.9100, L503.0106, L501.9985, L501.9520, L505.5000 #### [facility] [address] [place], [address] Consultation - Orthopedicson 04-20-2025 Consultation - Orthopedics [facility] Medical Records Department [address] [place] [address] Consultation - Orthopedics 04/20/25 1339 MR#: [id number] Acct: [id number] Name: HATTIE VALDERRAMA Misty Rep #: [id number] : [id number] From: Hugo Bradley MD PCP: Dr. Neymar Xavier MD Status:ADM IN Location: [place] [address] HPI Consult Data Date of Consult: 04/20/25 HPI Narrative Reason for Consultation: Right hip pain HPI Narrative: HATTIE VALDERRAMA, is a 80 M who presents today with right hip pain and an inability to bear weight on the right lower extremity. Patient has a history of a right total replacement done in 2006 at an outside facility. Patient reports no complications with the surgery. He said no issues with the with the surgery and no antecedent pain leading up to yesterday's events. Patient notes he has not followed up with his operating surgeon and quite some time. Patient reports 10 out of 10 pain today worse with motion better with immobilization. Patient's pain is located in the groin and thigh on the right. 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 He fell to the ground and was unable to bear weight at that time. 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 Denies any associated numbness and tingling. Patient does take Coumadin for his atrial fibrillation. On his admission patient had INR of 2.7 which has been reversed to 1.6. Patient does have diabetes and his current hemoglobin A1c is 6.7 [facility] Medical History Overweight (BMI 25.0-29.9) Kidney stones Diabetes Atrial fibrillation Hypertension Home Medications ???Medication ???Instructions ???Recorded ???Last Taken ???Type atorvastatin 40 mg tablet 40 mg PO QHS CHOLESTEROL 05/20/22 04/18/25 History glimepiride 2 mg tablet 2 mg PO DAILY DIABETES 05/20/22 History losartan 50 mg tablet 100 mg PO DAILY BLOOD PRESSURE 04/18/25 History metformin 500 mg tablet 1,000 mg PO BID DIABETES 05/20/22 04/19/25 History metoprolol succinate 100 mg 100 mg PO DAILY BLOOD PRESSURE AND 05/20/22 04/19/25 History tablet,extended release 24 hr HEART RATE warfarin 2 mg tablet 4 mg PO SUTUTHSA blood clots 05/2004/18/25 History warfarin 2 mg tablet 6 mg PO QMWF blood clots 05/20/22 04/17/25 History amlodipine 5 mg tablet 5 mg PO DAILY high blood pressure 04/19/25 04/18/25 History aspirin 81 mg tablet,delayed 81 mg PO DAILY low dose 04/19/25 1 History release (Adult Low Dose Aspirin) magnesium 500 mg tablet 15 mg PO DAILY for low mag 5 04/18/25 History Allergy/AdvReac Type Severity Reaction Status Date / Time No Known Allergies Allergy Verified 04/20/25 13:06 Family History Other Heart disease Surgical History History of hip replacement History of knee replacement Social History Smoking Status: Former smoker ROS ROS Narrative 14 point review systems outside of what is mentioned in the HPI is negative. Vital Signs Vital Signs Vital Signs: 04/19/25 13:55 04/19/25 13:59 04/19/25 17:31 Temperature 97.7 F L 98.7 F Temperature Source Oral Oral Pulse Rate 76 90 Pulse Strength Respiratory Rate 16 16 Respiratory Effort Non-Labored Respiratory Depth Normal Respiratory Pattern Normal Blood Pressure 108/74 131/73 H Blood Pressure Mean 85 92 Blood Pressure Source Monitor Blood Pressure Position Supine Blood Pressure Location Pulse Ox 94 94 Oxygen Delivery Method Room Air Room Air Room Air 04/19/25 19:38 04/19/25 19:53 04/19/25 21:42 Temperature 98.4 F Temperature Source Oral Pulse Rate 107 H Pulse Strength Normal (2+) Respiratory Rate 19 H Respiratory Effort Non-Labored Respiratory Depth Normal Respiratory Pattern Normal Blood Pressure 134/91 H Blood Pressure Mean 105 Blood Pressure Source Monitor Blood Pressure Position Supine Blood Pressure Location Right Arm Pulse Ox 100 Oxygen Delivery Method Room Air Room Air 04/20/25 03:00 04/20/25 03:56 04/20/25 04:26 Temperature 98.0 F Temperature Source Oral Pulse Rate 86 86 Pulse Strength Respiratory Rate 19 H Respiratory Effort Non-Labored Respiratory Depth Normal Respiratory Pattern Normal Blood Pressure 119/66 Blood Pressure Mean 83 Blood Pressure Source Blood Pressure Position Blood Pressure Location Pulse Ox 93 Oxygen Delivery Method Room Air Room Air 04/20/25 08:16 04/20/25 08:22 04/20/25 08:25 Temperatu (more content not included)... Normal [facility] Electrocardiogram reportOrde red By: Tal Painting on 04-20-2025 EKG study [facility] [address] [place] [address] 12 Lead EKG 04/19/25 0956 MR#: [id number] Acct: [id number] Name: HATTIE VALDERRAMA Rep #:[id number] : 1945 80 From: Tal hubbard MD Attending Dr: Dr. Marcelino Gracia DO Status: ADM IN Ordering Dr: Jaydon Barney MD Date: 04/19 Location: [facility] Sex: M C Admitted: 04/19/25 Test Reason : Blood Pressure : */* mmHG Vent. Rate : 96 BPM Atrial Rate : * BPM P-R Int : * ms QRS Dur : 128 ms QT Int : 380 ms P-R-T Axes : * -13 16 degrees QTcB Int : 480 ms Atrial fibrillation Right bundle branch block Abnormal ECG Confirmed by Tal Painting ([id number]), newspaper photo editor WENDY PACHECO ([id number]) on 59:32:22 AM Referred By: Confirmed By: Tal Painting 04/20/25 0932 Date _ Tal Painting MD CC: Dr. Marcelino Gracia DO; Dr. Neymar Xavier MD; Dr. Jaydon Barney MD ~ Signed [facility] Other Phone: Hemoglobin A1con 04-20-2025 HbA1c (Bld) [Mass fraction] 6.7 % High <=5.6 [facility] Comment on above: Result Comment: Norm al < 5.7 % Prediabetic 5.7 - 6.4 % Diabetic >or= 6.5 % Please note range changes. Performed By: #### L 503.7502, L501.9100, L503.0106, L501.9985, L501.9520, L505.5000 #### [facility] [address] [place], [address] Hemoglobin A1c percentageOrd ered By: Abdiel Pittman on 04-20-2025 HbA1c (Bld) [Mass fraction] 6.7 % High <5.7 [facility] Comment on above: Normal < 5.7 % Predi abetic 5.7 - 6.4 % Diabetic >or= 6.5 % Please note range changes. Hip Min 2 Views (Portable)on 04-20-2025 Hip Min 2 Views (Portable) [facility] Imaging Services [address] [place] [address] Hip Min 2 Views (Portable) MR#: [id number] Acct: [id number] Name: HATTIE VALDERRAMA N Rep #: [id number] : 1945 M 80 From: Gabe Brush MD PCP: Dr. Neymar Xavier MD Status: ADM IN Study: Hip Min 2 Views (Portable) Date of Exam: 04/20 Exam# [id number] Ordering Dr: Hugo Bradley MD PROCEDURE: HIP MIN 2 VIEWS (PORTABLE) 04/20/2025 REASON FOR EXAM: POST OP TECHNIQUE: Procedure Code: RADH_P Modality: DX Procedure: HIP MIN 2 VIEWS (PORTABLE) Laterality: COMPARISON: 04/19/2025. FINDINGS: Status post right hip arthroplasty. Surrounding soft tissue swelling and air which is expected postsurgically. [id number]-jwizbk left hip degenerative changes. RAD/Hip Min 2 Views (Portable) IMPRESSION: Intact right hip arthroplasty. Left hip osteoarthrosis. Reading Location: [address] CC: Dr. Neymar Xavier MD; Dr. Hugo Bradley MD French Binding Folder: Signed Normal [facility] MR/POSTOP.ANEon 04-20-2025 MR/POSTOP.ANE [facility] Medical Records Department [address] [place] [address] Anesthesia Postop Eval I 04/20/25 1723 MR#: [id number] Acct: [id number] Name: HATTIE VALDERRAMA N Rep #: [id number] : 1945 80 From: Wiliam Coats CRNA PCP: Dr. Neymar Xavier MD Status:ADM IN Y Race: C Location: [place] [address] Anesthesia: Postop Eval I Current Vital Signs Temperature: 97.7 F Pulse Rate: 106 Blood Pressure: 125/72 Respiratory Rate: 16 Pulse Ox: 96 Oxygen Delivery Method: Room Air Assessment Airway patent: Yes Spontaneous unlabored respirations: Yes Mental status: Awake and Calm nausea: No Vomiting: No Anesthesia Complication: No Fluid Hydration Crystalloid volume administer (ml): 1,400 Total IV fluid infused: 1,400 Progress Note Anesthesia document: Postop Eval 1 completed: Yes 04/20/25 172 Date Wiliam Frederickignwai Signature: Date CC: Signed Normal [facility] MR/[id number] 04-20-2025 [facility] Medical Records Department [address] [place] [address] Anesthesia Postop Eval II 04/20/25 1751 MR#: [id number] Acct: [id number] Name: HATTIE VALDERRAMA Rep #: [id number] : 1945 80 From: Abdiel Pittman MD PCP: Dr. Neymar Xavier MD Status:ADM IN Y Race: C Location: [place] [address] Anesthesia Postop Eval I Sum Postop Eval Completion status Anesthesia document: Postop Eval 1 completed: Yes Anesthesia Postop Eval I Summary Anesthesia Postop Eval I Summary: Anesthesia Postop Eval I: Assessment Summary Airway patent Yes 04/20/25 17:24 DISTRIBUTION ACCOUNTING [email or web address] Spontaneous unlabored Yes 04/20/25 17:24 DISTRIBUTION ACCOUNTING [email or web address] respirations Mental status Awake,Calm 04/20/25 17:24 DISTRIBUTION ACCOUNTING [email or web address] nausea No 04/20/25 17:24 DISTRIBUTION ACCOUNTING [email or web address] Vomiting No 04/20/25 17:24 DISTRIBUTION ACCOUNTING [email or web address] Anesthesia Postop Eval I: Fluid Summary Crystalloid volume administer 1,400 04/20/25 17:24 DISTRIBUTION ACCOUNTING CLERK.[email or web address] (ml) Colloids volume administered ( ml) Blood Product volume administered (ml) Total IV fluid infused 1,400 04/20/25 17:24 DISTRIBUTION ACCOUNTING [email or web address] Anesthesia Postop Eval I: Summary Notes Anesthesia Complication No 04/20/25 17:24 DISTRIBUTION ACCOUNTING [email or web address] Anesthesia Complication Comment: Post-operative progress note Anesthesia: Postop Eval II Evaluation Mental status: Awake Pain Level: 1 nausea: No Vomiting: No Progress Note Post-operative progress note: Doing well in PACU. Baseline vital signs. Pain controlled. Plan to return to regular nursing floor. Complications Anesthesia Complication: No 04/20/25 1752 Date Abdiel Pittman MD Cosigner Signature: Date CC: Signed Normal [facility] Operative Reporton Operative Report [facility] Medical Records Department [address] [place] [address] Operative Report 04/20/25 1651 MR#: [id number] Acct: [id number] Name: HATTIE VALDERRAMA Rep #: [id number] : 1945 80 From: Hugo Bradley MD PCP: Dr. Neymar Xavier MD Status:ADM IN Location: [facility] [id number] Operative Report (Standard) Operative Information Date of Procedure: 04/20/25 Pre-Operative Diagnosis: Failed prosthesis right total hip replacement, trunnion dissociation Post-Operative Diagnosis: Failed prosthesis right total hip replacement, trunnion dissociation Surgery/Procedure Performed: Revision both components right total hip replacement trim and burr operator: Yes Cook [employer]: Arcenio Acosta Tasks completed by stores assistant: Other (During the course of the procedure the physician electrical subcontractor (PE) played a vital role. Their intimate knowledge of my steps in the procedure aided in safe and expedient completion of the procedure. The PE played a vital rolls in positioning particularly in obtaining the appropriate positioning of the) Additional assistant account manager?: No Type of Anesthesia: General RN Documented Start/Stop Times: Operation Date: 04/20/25 14:00 Case Time Into Pre-Op 04/20/25 13:06 Out of Pre-Op 04/20/25 14:12 Anesthesia Start 04/20/25 14:16 Into Room 04/20/25 14:16 Procedure Start 04/20/25 14:56 Procedure Start Time: 14:56 Procedure Stop Time: 17:09 Select all DRAINS/GRAFTS/IMPLANTS that apply: Prosthetic device Prosthetic device details: See body of operative report Special Medications: 2 g Ancef, 2 g TXA lavage Estimated Blood Loss: 250 mL Fluids Replaced: 2000 mL crystalloid Specimen collected: No Description of surgery: Implants: 1. [place] MDM cobalt-chromium acetabular liner F 2. [place] MDM X3 polyethylene liner 46F 3. [place] cobalt-chromium 28 mm +8 mm L fit V40 femoral head 4. Hazel quaker modular cone body 25 mm +10 mm 5. Hazel quaker modular conical hip stem 115 mm x 18 mm On the date of the procedure patient was seen and evaluated in the preoperative area. Consultation was performed with establishment of treatment plan as well as associated risk benefits. Patient demonstrated understanding. Family was also at bedside and all parties wish to proceed. Right hip was marked in the preoperative area and patient was taken back to the operating room and. Once in the operating room patient was transferred to table in the supine position and anesthesia assumed control of the C-spine and airway and remained controlled throughout the remainder of the procedure. Anesthesia anesthetized the patient and after appropriate anesthetization patient was placed in a lateral decubitus position with the right hip in the air with the previous incision visible. Axillary roll was placed. Patient was secured to the bed using the pegboard. Once patient was secured and all bony prominences were identified well-padded the right lower extremity was then prepped in a sterile fashion while the surgeon scrubbed. Upon reentering the room the right lower extremity was then draped in a standard orthopedic fashion incision was marked out and timeout was called. Upon agreed upon the side, the site, the procedure to be performed, patient identity and antibiotics given. We used the previous incision and extended distally and proximally as appropriate for revision exposure. Incision was taken down through skin. Subcutaneous tissue was dissected using Bovie cautery. Once we dissected down to the fascia the fascia was incised in line with the incision internally retractor was placed. Leg was internally rotated slight flexion and we carefully took off the external rotators and posterior capsule. Once we were into the joint there was dark mills fluid that was expressed from the joint. We tried to suction as much as this has been can so as not to contaminate tissue. We carefully performed a synovectomy debriding the metallosis synovium inside the joint. Once this was completed we were able to dislocate the joint and expose the trunnion. We carefully used a bur and osteotomes to interrupt the bone implant interface and back slap was used to remove the femoral stem. Once the femoral stem was removed with minimal bone loss we then reamed the femur to an 18 mm x 115 mm stem. We carefully curettaged the proximal femur of any metallosis synovium and then directed our attention towards the acetabulum. Once we were able to expose the acetabulum the previous femoral head was removed and the polyethylene did show some damage in relation to the dissociation however the metal shell appeared stable. Based on the damage to the polyethylene and the desire to proceed with a dual mobility implant based on the revision nature of the surgery we removed the polyethylene hooded liner. Once all the implants were removed we carefully irrigated ou (more content not included)... Normal [facility] Prothrombin Time w/INRon INR Coag (PPP) [Relative time] 1.6 {INR} Normal [facility] Comment on above: Performed By: #### L 503.7505, L501.9100, L503.0106, L501.9985, L501.9520, L505.5000 #### [facility] [address] [place], [address] PT Coag (PPP) [Time] 19.3 s High 11.7-14.9 [facility] Comment on above: Performed By: #### L 503.7505, L501.9100, L503.0106, L501.9985, L501.9520, L505.5000 #### [facility] [address] [place], [address] Type AND Screenon 04-20-2025 ABO and Rh group Nom (Bld) Blood group O Rh(D) positive Normal [facility] Comment on above: Order Comment: S Performed By: #### L 503.7505, L501.9100, L503.0106, L501.9985, L501.9520, L505.5000 #### [facility] [address] [place], [address] 12 Lead EKGon 04-19-2025 12 Lead EKG [facility] Cardi[facility] Services [address] [place] [address] 12 Lead EKG 04/19/25 0956 MR#: [id number] Acct: [id number] Name: HATTIE VALDERRAMA Rep #: [id number] : 1945 80 From: Tal Painting MD Attending Dr: Dr. Marcelino Gracia DO Status: ADM IN Ordering Dr: Jaydon Barney MD Date: 04/19/25 Location: [facility] Sex: M C Admitted: 04/19/25 Test Reason : Blood Pressure : */* mmHG Vent. Rate : 96 BPM Atrial Rate : * BPM P-R Int : * ms QRS Dur : 128 ms QT Int : 380 ms P-R-T Axes : * -13 16 degrees QTcB Int : 480 ms Atrial fibrillation Right bundle branch block Abnormal ECG Confirmed by Tal Painting ([id number]), newspaper photo editor WENDY PACHECO ([id number]) on 04/20/2025 9:32:22 AM Referred By: Confirmed By: Tal Painting 04/20/25 0932 Date Tal Painting MD CC: Dr. Marcelino Gracia DO; Dr. Neymar Xavier MD; Dr. Jaydon Barney MD Signed Normal [facility] Basic Metabolic Profile (BMP )on 04-19-2025 BUN/CRE 18.3 RATIO Normal 04-17 [facility] Comment on above: Performed By: #### L 503.7505, L501.9100, L503.0106, L501.9985, L501.9520, L505.5000 #### [facility] [address] [place], [address] Calcium [Mass/Vol] 9.2 mg/dL Normal 7.6-11.0 [facility] Comment on above: Performed By: #### L 503.7505, L501.9100, L503.0106, L501.9985, L501.9520, L505.5000 #### [facility] [address] [place], [address] Chloride [Moles/Vol] 103 mmol/L Normal 98-108 [facility] Comment on above: Performed By: #### L 503.7505, L501.9100, L503.0106, L501.9985, L501.9520, L505.5000 #### [facility] [address] [place], [address] CO2 [Moles/Vol] 29.6 mmol/L Normal 21.0-32.0 [facility] Comment on above: Performed By: #### L 503.7505, L501.9100, L503.0106, L501.9985, L501.9520, L505.5000 #### [facility] [address] [place], [address] Creatinine [Mass/Vol] 0.87 mg/dL Normal 0.70-1.20 [facility] Comment on above: Performed By: #### L 503.7505, L501.9100, L503.0106, L501.9985, L501.9520, L505.5000 #### [facility] [address] [place], [address] ECRCL 86.79 ml/min Normal 50-250 [facility] Comment on above: Performed By: #### L 503.7505, L501.9100, L503.0106, L501.9985, L501.9520, L505.5000 #### [facility] [address] [place], [address] GAP 7 Normal 5-15 [facility] Comment on above: Performed By: #### L 503.7505, L501.9100, L503.0106, L501.9985, L501.9520, L505.5000 #### [facility] [address] [place], [address] GFR/1.73 sq M.predicted among non-blacks MDRD (S/P/Bld) [Vol rate/Area] 88 mL/min/{1.73_m2} Normal >60 [facility] Comment on above: Result Comment: mL/m in/1.73m2 CKD-EPI Creatinine Equation (2020) Performed By: #### L 503.7505, L501.9100, L503.0106, L501.9985, L501.9520, L505.5000 #### [facility] [address] [place], [address] Glucose [Mass/Vol] 221 mg/dL High 70-99 [facility] Comment on above: Performed By: #### L 503.7505, L501.9100, L503.0106, L501.9985, L501.9520, L505.5000 #### [facility] [address] [place], [address] Potassium [Moles/Vol] 4.3 mmol/L Normal 3.3-5.1 [facility] Comment on above: Performed By: #### L 503.7505, L501.9100, L503.0106, L501.9985, L501.9520, L505.5000 #### [facility] [address] [place], [address] Sodium [Moles/Vol] 140 mmol/L Normal 133-145 [facility] Comment on above: Performed By: #### L 503.7505, L501.9100, L503.0106, L501.9985, L501.9520, L505.5000 #### [facility] [address] [place], [address] Urea nitrogen [Mass/Vol] 16 mg/dL Normal 4-19 [facility] Comment on above: Performed By: #### L 503.7505, L501.9100, L503.0106, L501.9985, L501.9520, L505.5000 #### [facility] [address] [place], [address] Bedside Glucoseon 04-19-2025 FINGERSTICK GLU 122 mg/dL High 74-106 [facility] Comment on above: Result Comment: ANDREW GEMENT OF PATIENT CARE PER NURSING PROTOCOL Performed By: #### L 503.7505, L501.9100, L503.0106, L501.9985, L501.9520, L505.5000 #### [facility] [address] [place], [address] FINGERSTICK GLU 151 mg/dL High 74-106 [facility] Comment on above: Result Comment: ANDREW GEMENT OF PATIENT CARE PER NURSING PROTOCOL Performed By: #### L 503.7505, L501.9100, L503.0106, L501.9985, L501.9520, L505.5000 #### [facility] [address] [place], [address] Bilirubin directOrdered By: Marcelino Gracia on 04-19-2025 Bilirubin.direct [Mass/Vol] 0.28 mg/dL 0.00-0.30 [facility] Bilirubin, totalOrdered By: Marcelino Gracia on 04-19-2025 Bilirubin [Mass/Vol] 0.59 mg/dL 0.00-1.30 [facility] CBC W/Diff, Automatedon 03-30 Absolute Lymph 1.18 X10 3/uL Normal 0.83-4.51 [facility] Comment on above: Performed By: #### L 503.7505, L501.9100, L503.0106, L501.9985, L501.9520, L505.5000 #### [facility] [address] [place], [address] Absolute Neut 5.5 X10 3/uL Normal 2.0-7.7 [facility] Comment on above: Performed By: #### L 503.7505, L501.9100, L503.0106, L501.9985, L501.9520, L505.5000 #### [facility] [address] [place], [address] Basophils/100 WBC (Bld) 0.7 % Normal 0-1 [facility] Comment on above: Performed By: #### L 503.7505, L501.9100, L503.0106, L501.9985, L501.9520, L505.5000 #### [facility] [address] [place], [address] Eosinophils/100 WBC (Bld) 1.2 % Normal 0-5 [facility] Comment on above: Performed By: #### L 503.7505, L501.9100, L503.0106, L501.9985, L501.9520, L505.5000 #### [facility] [address] [place], [address] Erythrocyte distribution width (RBC) [Ratio] 13.6 % Normal 11.6-14.6 [facility] Comment on above: Performed By: #### L 503.7505, L501.9100, L503.0106, L501.9985, L501.9520, L505.5000 #### [facility] [address] [place], [address] Hematocrit (Bld) [Volume fraction] 36.9 % Low 40-54 [facility] Comment on above: Performed By: #### L 503.7505, L501.9100, L503.0106, L501.9985, L501.9520, L505.5000 #### [facility] [address] [place], [address] Hemoglobin (Bld) [Mass/Vol] 12.1 g/dL Low 13.0-16.5 [facility] Comment on above: Performed By: #### L 503.7505, L501.9100, L503.0106, L501.9985, L501.9520, L505.5000 #### [facility] [address] [place], [address] IG% 0.500 Normal 0.0-0.9 [facility] Comment on above: Result Comment: IG% - Immature Granulocytes (promyelocytes, myelocytes and metamyelocytes) > 1% indicates that a LEFT SHIFT is Present. Performed By: #### L 503.7505, L501.9100, L503.0106, L501.9985, L501.9520, L505.5000 #### [facility] [address] [place], [address] Lymphocytes/100 WBC (Bld) 15.7 % Low 19-41 [facility] Comment on above: Performed By: #### L 503.7505, L501.9100, L503.0106, L501.9985, L501.9520, L505.5000 #### [facility] [address] [place], [address] MCH (RBC) [Entitic mass] 31.1 pg Normal 27.0-32.0 [facility] Comment on above: Performed By: #### L 503.7505, L501.9100, L503.0106, L501.9985, L501.9520, L505.5000 #### [facility] [address] [facility] [place], [address] MCHC (RBC) [Mass/Vol] 32.8 g/dL Normal 32-36 [facility] Comment on above: Performed By: #### L 503.7505, L501.9100, L503.0106, L501.9985, L501.9520, L505.5000 #### [facility] [address] [place], [address] MCV (RBC) [Entitic vol] 94.9 fL High 80-94 [facility] Comment on above: Performed By: #### L 503.7505, L501.9100, L503.0106, L501.9985, L501.9520, L505.5000 #### [facility] [address] [place], [address] Monocytes/100 WBC (Bld) 8.1 % Normal 0-10 [facility] Comment on above: Performed By: #### L 503.7505, L501.9100, L503.0106, L501.9985, L501.9520, L505.5000 #### [facility] [address] [place], [address] Neutrophils/100 WBC (Bld) 73.8 % High 47-70 [facility] Comment on above: Performed By: #### L 503.7505, L501.9100, L503.0106, L501.9985, L501.9520, L505.5000 #### [facility] [address] [place], [address] Nucleated RBC (Bld) [#/Vol] 0 10*3/uL Normal 0-5 [facility] Comment on above: Performed By: #### L 503.7505, L501.9100, L503.0106, L501.9985, L501.9520, L505.5000 #### [facility] [address] [place], [address] Platelet mean volume (Bld) [Entitic vol] 10.4 fL Normal 6.2-12.0 [facility] Comment on above: Performed By: #### L 503.7505, L501.9100, L503.0106, L501.9985, L501.9520, L505.5000 #### [facility] [address] [place], [address] Platelets (Bld) [#/Vol] 241 10*3/uL Normal 150-450 [facility] Comment on above: Performed By: #### L 503.7505, L501.9100, L503.0106, L501.9985, L501.9520, L505.5000 #### [facility] [address] [place], [address] RBC (Bld) [#/Vol] 3.89 10*6/uL Low 4.6-6.[address] [facility] Comment on above: Performed By: #### L 503.7505, L501.9100, L503.0106, L501.9985, L501.9520, L505.5000 #### [facility] [address] [place], [address] RDW SD 47.1 fl High 35.1-43.9 [facility] Comment on above: Performed By: #### L 503.7505, L501.9100, L503.0106, L501.9985, L501.9520, L505.5000 #### [facility] [address] [place], [address] WBC (Bld) [#/Vol] 7.5 10*3/uL Normal 4.4-11.0 [facility] Comment on above: Performed By: #### L 503.7505, L501.9100, L503.0106, L501.9985, L501.9520, L505.5000 #### [facility] [address] [place], [address] Chest 1 View (Portable)on Chest 1 View (Portable) [facility] Imaging Services [address] [place] [address] Chest 1 View (Portable) MR#: [id number] Acct: [id number] Name: HATTIE VALDERRAMA N Rep #: [id number] : 1945 M 80 From: Loyd Atkinson MD PCP: Dr. Neymar Xavier MD Status: REG ER Study: Chest 1 View (Portable) Date of Exam: 04/19/25 Exam# [id number] Ordering Dr: Jaydon Banrey MD PROCEDURE: CHEST 1 VIEW (PORTABLE) 04/19/2025 REASON FOR EXAM: PREOPERATIVE CLEARANCE TECHNIQUE: Frontal view of the chest. COMPARISON: None FINDINGS: There is cardiomegaly without overt CHF. There is no focal infiltrate or consolidation. There is no pneumothorax or effusion. There is no acute bony abnormality. Aortic calcifications are noted. RAD/Chest 1 View (Portable) IMPRESSION: There is cardiomegaly without overt CHF. Reading Location: [facility] CC: Dr. Neymar Xavier MD; Dr. Jaydon Barney MD French Binding Folder: Signed Normal [facility] Emergency Department Summary on 04-19-2025 Emergency Department Summary [facility] Medical Records Department [address] [place] [address] Emergency Department Summary 04/19/25 MR#: [id number] Acct: [id number] Name: HATTIE VALDERRAMA N Rep #: [id number] : 1945 80 From: Jaydon Barney MD PCP: Dr. Neymar Xavier MD Status:REG ER Location: ED ADDENDUM by Dr. Jaydon Barney MD on 04/19/25 at 1130 Single view chest x-ray reveals cardiomegaly. Cardiac silhouette seen. There is no evidence of failure, infiltrate or effusion. Osseous structures reveal no acute abnormality. This ind ependently reviewed by ny 04/19/25 1130 Cosigner Signature (if applicable): cc: Dr. Neymar Xavier MD * Signed HPI History of Present Illness Chief Complaint: Lower Extremity Injury Detail of Chief Complaint: Complains of right hip pain which he points to the greater trochanteric reg Informant: patient Onset/Context/Timing Onset: Hours Context: Sudden Onset Timing: Continuous Quality: Pain Location: Right hip region Current Severity: Mild Maximum Severity: Moderate Worsened by: Movement Relieved by: Nothing Associated Symptoms Associated Symptoms: Unable to bear weight Narrative Narrative: Patient is a 80-year-old male. He has history of right total hip arthroplasty. He states he was standing pivoted and felt a pop and experienced severe pain which he locates to the greater trochanteric region. He arrived by ambulance. He was unable to bear weight afterwards. He denies paresthesia, anesthesia or motor weakness. He has history of type 2 diabetes, hypercholesterolemia, hypertension and is on anticoagulant. Prior similar symptoms: No Recent Illness/Hospitalization: No PFSH PFSH Medical History Overweight (BMI 25.0-29.9) Kidney stones Diabetes Atrial fibrillation Hypertension Home [...] mg PO QMWF 05/20/22 Unknown Hist ory guaifenesin 1,200 mg tablet, 1,200 mg PO BID #10 tabs 09/22/24 Unknown Rx extended release 12 hr (Mucus Relief ER) levofloxacin 750 mg tablet 750 mg PO DAILY #4 tabs 09/22/24 U nknown Rx oseltamivir 30 mg capsule 30 mg PO BID #6 caps 09/22/24 Unkn own Rx prednisone 20 mg tablet 40 mg (2 x 20 mg) PO DAILY #10 tab s 09/22/24 Unknown Rx Allergy/AdvReac Type Severity Reaction Status Date / Time No Known Allergies Allergy Verified 09/20/24 17:36 Surgical History History of hip replacement History of knee replacement Social History Smoking Status: Former smoker ROS ROS ED Constitutional Constitutional ED: Denies chills, fever(s) or subjective Cardiovascular Cardiovascular: Denies chest pain or palpitations Respiratory/Chest Respiratory/Chest: Denies cough or dyspnea Gastrointestinal Gastrointestinal: Denies nausea or vomiting Musculoskeletal Musculoskeletal: Reports other Details: Right hip pain EXAM Physical Exam Const Vital Signs: 04/19/25 08:20 Temperature 97.7 F L Temperature Source Oral Pulse Rate 94 Respiratory Rate 18 Blood Pressure 125/80 H Blood Pressure Mean 95 Pulse Ox 98 Positive well nourished and well developed Constitutional Narrative: Patient appears slightly uncomfortable. The right lower extremity is shortened compared to the left. General Appearance ED: well developed; Negative for pallor HEENT Reports moist mucous membranes HEENT Narrative: HEENT is grossly unremarkable with no evidence of trauma Eyes PERRL and EOMs intact bilaterally General Eye ED: Negative for pale conjunctiva or scleral icterus Resp normal respiratory effort and clear to auscultation bilaterally Cardio regular rate, regular rhythm, S1 normal heart sound, S2 normal heart sound and no murmurs GI normal to inspection, nondistended, normoactive bowel sounds, non-tender and non-distended Extremity Extremity Narrative: There is shortening of the right leg. He is unable to lift his leg up off the bed. He has no pain to palpation in the inguinal area. There is pain ovation over the greater trochanteric region. There is no evidence of bruising or tra (more content not included)... Normal [facility] H AND P Exam - [facility] 04-19-2025 H&P Exam - Hospitalist [facility] Medical Records Department [address] [place] [address] H P Exam - Hospitalist 04/19/25 1960 MR#: [id number] Acct: [id number] Name: HATTIE VALDERRAMA Rep #: [id number] : 1945 80 From: Marcelino Gracia DO PCP: Dr. Neymar Xavier MD Status:ADM IN Location: [facility] [id number] HPI - General General Date of Admission: 04/19/25 Date of Service: 04/19/25 Chief Complaint: Right hip pain HPI Narrative HATTIE VALDERRAMA, is a 80 M who presents with right hip pain. This is a 80-year-old male with a history of atrial fibrillation who was in his kitchen tending to his puppies where he twisted ever so slightly and felt his right hip gave out. He did not fall and is actually able to brace himself in the kitchen and was able to lower himself to the ground. He presented to the emergency room where it was noted that he had a transverse cervical fracture of the prosthetic component of his right total hip with cephalic migration of the distal fracture fragments. Patient had this hip replacement in 2006 and has been doing well. [ ] [facility] Medical History Overweight (BMI 25.0-29.9) Kidney stones Diabetes Atrial fibrillation Hypertension Home Medications ???Medication ???Instructions ???Recorded ???Last Taken ???Type atorvastatin 40 mg tablet 40 mg PO QHS CHOLESTEROL 05/20/22 04/18/25 History glimepiride 2 mg tablet 2 mg PO DAILY DIABETES 05/20/22 History losartan 50 mg tablet 100 mg PO DAILY BLOOD PRESSURE 04/18/25 History metformin 500 mg tablet 1,000 mg PO BID DIABETES 05/20/22 04/19/25 History metoprolol succinate 100 mg 100 mg PO DAILY BLOOD PRESSURE AND 05/20/22 04/19/25 History tablet,extended release 24 hr HEART RATE warfarin 2 mg tablet 4 mg PO SUTUTHSA blood clots 05/2004/18/25 History warfarin 2 mg tablet 6 mg PO QMWF blood clots 05/20/22 04/17/25 History amlodipine 5 mg tablet 5 mg PO DAILY high blood pressure 04/19/25 04/18/25 History aspirin 81 mg tablet,delayed 81 mg PO DAILY low dose 04/19/25 1 History release (Adult Low Dose Aspirin) magnesium 500 mg tablet 15 mg PO DAILY for low mag 5 04/18/25 History Allergy/AdvReac Type Severity Reaction Status Date / Time No Known Allergies Allergy Verified 09/20/24 17:36 Family History (Updated 04/19/25 @ 14:[address] Marcelino Gracia DO) Other Heart disease Surgical History History of hip replacement History of knee replacement Social History Smoking Status: Former smoker ROS ROS Narrative All review of systems were negative except as mentioned above in the history of present illness and the other review of systems. Vital Signs Vital Signs Vital Signs: 04/19/25 08:20 04/19/25 11:35 04/19/25 12:15 Temperature 36.5 C L 36.6 C Temperature Source Oral Pulse Rate 94 74 78 Respiratory Rate 18 16 16 Respiratory Effort Respiratory Depth Respiratory Pattern Blood Pressure 125/80 H 111/68 115/78 Blood Pressure Mean 95 82 90 Blood Pressure Source Blood Pressure Position Pulse Ox 98 99 98 Oxygen Delivery Method Room Air 04/19/25 13:55 04/19/25 13:59 Temperature 36.5 C L Temperature Source Oral Pulse Rate 76 Respiratory Rate 16 Respiratory Effort Non-Labored Respiratory Depth Normal Respiratory Pattern Normal Blood Pressure 108/74 Blood Pressure Mean 85 Blood Pressure Source Monitor Blood Pressure Position Supine Pulse Ox 94 Oxygen Delivery Method Room Air Room Air Weight Weight: 103.1 kg Body Mass Index (BMI) 30.8 Physical Exam Const alert and no apparent distress Constitutional Narrative: Comfortable. Nontoxic. HEENT normocephalic and head/scalp atraumatic Resp normal respiratory effort, no retractions, no use of accessory muscles and clear to auscultation bilaterally Cardio regular rate, regular rhythm, S1 normal heart sound and S2 normal heart sound GI normal to inspection, nondistended, normoactive bowel sounds, soft to palpation, non-tender and non- distended Neuro Sensorium / Orientation: awake and alert Psych affect normal Results Lab / Micro Data 04/19/25 09:50 04/19/25 09:50 Labs: Laboratory Results - last 24 hr 04/19/25 09:50: WBC 7.5, RBC 3.89 L, Hgb 12.1 L, Hct 36.9 L, MCV 94.9 H, MCH 31.1, MCHC 32.8, RDW Std Deviation 47.1 H, RDW Coeff of Risa 13.6, Plt Count 241, MPV 10.4, Immature Gran % (Auto) 0.500, Neut % (Auto) 73.8 H, Lymph % (Auto) 15.7 L, Mora % (Auto) 8.1, Eos % (Auto) 1.2, Baso % (Auto) 0.7, Absolute Neuts (auto) 5.5, Absolute Lymphs (auto) 1.18, Nucleated RBC % 0, PT 29.2 H, IN (more content not included)... Normal [facility] HIP, UNI W/ Pelvis 2-3 Views on 04-19-2025 HIP, UNI W/ Pelvis 2-3 Views [facility] Imaging Services [address] [place] [address] [id number] HIP, UNI W/ Pelvis 2-3 Views MR#: [id number] Acct: [id number] Name: HATTIE VALDERRAMA Rep #: [id number] : 1945 M 80 From: Devon valencia MD PCP: Dr. Neymar Xavier MD Status: REG ER Study: HIP, UNI W/ Pelvis 2-3 Views Date of Exam: Exam# [id number] Ordering Dr: Jaydon Barney MD PROCEDURE: HIP, UNI W/ PELVIS 2-3 VIEWS 04/19/2025 REASON FOR EXAM: INJURY/PAIN TECHNIQUE: Procedure Code: RADHP Modality: DX Procedure: HIP, UNI W/ PELVIS 2-3 VIEWS Laterality: Right hip. COMPARISON: None FINDINGS: The patient is status post right total hip replacement. There is a fracture through the cervical component of the femoral prosthesis with cephalic migration of the distal fracture fragment. 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 Degenerative changes of the lower lumbar spine. RAD/HIP, UNI W/ Pelvis 2-3 Views IMPRESSION: Transverse cervical fracture of the prosthetic component of the right total hip with cephalic migration of the distal fracture fragment. Reading Location: [facility] CC: Dr. Neymar Xavier MD; Dr. Jaydon Barney MD French Binding Folder: Signed Normal [facility] - Chemistry and C hemistry - challengeOrdered By: Marcelino Gracia on 04-19-2025 AST [Catalytic activity/Vol] 20 U/L <38 [facility] Liver Profileon 04-19-2025 Albumin [Mass/Vol] 4.1 g/dL Normal 3.4-4.8 [facility] Comment on above: Performed By: #### L 503.7505, L501.9100, L503.0106, L501.9985, L501.9520, L505.5000 #### [facility] [address] [place], [address] ALK PHOS 65 U/L Normal 40-129 [facility] Comment on above: Performed By: #### L 503.7505, L501.9100, L503.0106, L501.9985, L501.9520, L505.5000 #### [facility] [address] [place], [address] ALT [Catalytic activity/Vol] 18 U/L Normal <=46 [facility] Comment on above: Performed By: #### L 503.7505, L501.9100, L503.0106, L501.9985, L501.9520, L505.5000 #### [facility] [address] [place], [address] AST [Catalytic activity/Vol] 20 U/L Normal <=37 [facility] Comment on above: Performed By: #### L 503.7505, L501.9100, L503.0106, L501.9985, L501.9520, L505.5000 #### [facility] [address] [place], [address] Bilirubin [Mass/Vol] 0.59 mg/dL Normal 0.00-1.30 [facility] Comment on above: Performed By: #### L 503.7505, L501.9100, L503.0106, L501.9985, L501.9520, L505.5000 #### [facility] [address] [place], [address] Bilirubin.direct [Mass/Vol] 0.28 mg/dL Normal 0.00-0.30 [facility] Comment on above: Performed By: #### L 503.7505, L501.9100, L503.0106, L501.9985, L501.9520, L505.5000 #### [facility] [address] [place], [address] Globulin (S) [Mass/Vol] 2.8 g/dL Normal 2.2-4.2 [facility] Comment on above: Performed By: #### L 503.7505, L501.9100, L503.0106, L501.9985, L501.9520, L505.5000 #### [facility] [address] [place], [address] T PROT 6.9 g/dL Normal 5.9-8.4 [facility] Comment on above: Performed By: #### L 503.7505, L501.9100, L503.0106, L501.9985, L501.9520, L505.5000 #### [facility] [address] [place], [address] Prothrombin Time w/INRon INR Coag (PPP) [Relative time] 2.6 {INR} Normal [facility] Comment on above: Performed By: #### L 503.7505, L501.9100, L503.0106, L501.9985, L501.9520, L505.5000 #### [facility] [address] [place], [address] PT Coag (PPP) [Time] 28.7 s High 11.7-14.9 [facility] Comment on above: Performed By: #### L 503.7505, L501.9100, L503.0106, L501.9985, L501.9520, L505.5000 #### [facility] [address] [place], [place], [id number] (860 INR Coag (PPP) [Relative time] 2.7 {INR} Normal [facility] Comment on above: Performed By: #### L 503.7505, L501.9100, L503.0106, L501.9985, L501.9520, L505.5000 #### [facility] [address] [place], [address] PT Coag (PPP) [Time] 29.2 s High 11.7-14.9 [facility] Comment on above: Performed By: #### L 503.7505, L501.9100, L503.0106, L501.9985, L501.9520, L505.5000 #### [facility] [address] [place], [place], [id number] Serum globulin measurementOr dered By: Marcelino Gracia on 04-19-2025 Globulin (S) [Mass/Vol] 2.8 g/dL 2.2-4.2 [facility] Serum or plasma alanine moreno otransferase (ALT) measurementOrdered By: Marcelino Gracia on 04-19-2025 ALT [Catalytic activity/Vol] 18 U/L <47 [facility] Serum or plasma albumin camryn urement (mass/volume)Ordered By: Marcelino Gracia on 04-19-2025 Albumin [Mass/Vol] 4.1 g/dL 3.4-4.8 [facility] Serum or plasma alkaline drew sphatase measurementOrdered By: Marcelino Gracia on 04-19-2025 ALP [Catalytic activity/Vol] 65 U/L 40-129 [facility] Total proteinOrdered By: Beth Gracia on 04-19-2025 Protein [Mass/Vol] 6.9 g/dL 5.9-8.4 [facility] Vitamin D,25 Hydroxyon 04-19 Vitamin D 25-OH 39.5 ng/mL Normal 30-100 [facility] Comment on above: Result Comment: Mallory min D Status Deficiency: <20 ng/mL (50nmol/L) Insufficiency: 20-30 ng/mL (50-75 nmol/L) Sufficiency: 30-100 ng/mL (75-250 nmol/L) Toxicity: >100 ng/mL (>250 nmol/L) Performed By: #### L 503.7505, L501.9100, L503.0106, L501.9985, L501.9520, L505.5000 #### [facility] [address] [place], [address] MR HIP LEFT WO IV CONTRASTon 02-20-2025 MR HIP LEFT WO IV CONTRAST Interpreted By: Ernie Toledo, STUDY: MRI of the pelvis and left hip without IV contrast; 02/20/2025 8:41 am INDICATION: Signs/Symptoms:pain. ,M16.12 Unilateral primary osteoarthritis, left hip COMPARISON: 02/06/2025 ACCESSION NUMBER(S): [id number] ORDERING CLINICIAN: NEYMAR XAVIER TECHNIQUE: MR imaging [...] complex degenerative acetabular labral tearing. Limited large ijexe-ey-iart evaluation of the contralateral hip demonstrates postsurgical [...] Ernie Toledo 02/20/2025 12:16 PM Dictation workstation: [id number] [facility] MR Hip - left WO contraston 02-20-2025 Severe left hip osteoarthrosis with full-thickness cartilage loss and likely reactive joint effusion. Moderate pubic symphyseal degenerative change. Lower lumbar degenerative change, incompletely characterized. MACRO: None Signed by: Ernie Toledo 02/20/2025 12:16 PM Dictation workstation: [id number] MMODAL Interpreted By: Ernie Goodrich, STUDY: MRI of the pelvis and left hip without IV contrast; 02/20/2025 8:41 am INDICATION: Signs/Symptoms:pain. ,M16.12 Unilateral primary osteoarthritis, left hip COMPARISON: 02/06/2025 ACCESSION NUMBER(S): [id number] ORDERING CLINICIAN: NEYMAR XAVIER TECHNIQUE: MR imaging [...] complex degenerative acetabular labral tearing. Limited large jczbu-ud-pvfh evaluation of the contralateral hip demonstrates postsurgical [...] osteoarthritis, left hip COMPARISON: 02/06/2025 ACCESSION NUMBER(S): [id number] ORDERING CLINICIAN: NEYMAR XAVIER TECHNIQUE: MR imaging [...] complex degenerative acetabular labral tearing. Limited large whdzr-bw-tohe evaluation of the contralateral hip demonstrates postsurgical [...] Ernie Toledo 02/20/2025 12:16 PM Dictation workstation: [id number] [facility] Work Phone: Radiology Study observation (narrative) [facility] Work Phone: MR Hip - left WO contrastOrd ered By: Ernie Toledo on 02-20-2025 [facility] Work Phone: ALBUMIN, RANDOM URINE W/CREA TININEon 02-14-2025 ALBUMIN, URINE 1.9 mg/dL Normal See Note: [facility] Comment on above: Order Comment: FASTI NG:YES FASTING: YES Result Comment: Refe rence Range: Reference Range Not established Performed By: #### 1 6801, 65, 16937 #### [facility] [address], [address] [place] [address] Flatwork Catcher: Sin Viveros MD ALBUMIN/CREATININE RATIO, RANDOM URINE [...] a diagnostic category. Performed By: #### 1 6801, 65, 84607 #### [facility] [address], [address] [place] [address] Flatwork Catcher: Sin Viveros MD Creatinine (U) [Mass/Vol] 147 mg/dL Normal 20-320 [facility] Comment on above: Order Comment: FASTI NG:YES FASTING: YES Performed By: #### 1 6801, 65, 99185 #### [facility] [address], [address] [place] [address] Flatwork Catcher: Sin Viveros MD COMPREHENSIVE METABOLIC PANE L W/ANION GAPon 02-14-2025 Albumin [Mass/Vol] 4.6 g/dL Normal 3.6-5.1 [facility] Comment on above: Performed By: #### 1 6801, 65, 55289 #### [facility] [address], [address] [place] [address] Flatwork Catcher: Sni Viveros MD ALP [Catalytic activity/Vol] 61 U/L Normal 35-144 [facility] Comment on above: Performed By: #### 1 6801, 65, 83984 #### [facility] [place] [address] Flatwork Catcher: Sin Viveros MD ALT [Catalytic activity/Vol] 17 U/L Normal 9-46 [facility] Comment on above: Performed By: #### 1 6801, 65, 90261 #### [facility] [place] [address] Flatwork Catcher: Sin Viveros MD AST [Catalytic activity/Vol] 19 U/L Normal 10-35 [facility] Comment on above: Performed By: #### 1 6801, 6516, 33323 #### [facility] [place] [address] Flatwork Catcher: Sin Viveros MD Bilirubin [Mass/Vol] 0.8 mg/dL Normal 0.2-1.2 [facility] Comment on above: Performed By: #### 1 6801, 6516, 97988 #### [facility] [place] [address] Flatwork Catcher: Sin Viveros MD Calcium [Mass/Vol] 9.6 mg/dL Normal 8.6-10.3 [facility] Comment on above: Performed By: #### 1 6801, 6516, 51638 #### [facility] [place] [address] Flatwork Catcher: Sin Viveros MD Chloride [Moles/Vol] 102 mmol/L Normal 98-110 [facility] Comment on above: Performed By: #### 1 6801, 65, 57737 #### [facility] [place] [address] Flatwork Catcher: Sin Viveros MD CO2 [Moles/Vol] 28 mmol/L Normal 20-32 [facility] Comment on above: Performed By: #### 1 6801, 65, 74996 #### [facility] [address], [address] [place] [address] Flatwork Catcher: Sin Viveros MD Creatinine [Mass/Vol] 0.88 mg/dL Normal 0.70-1.[address] [facility] Comment on above: Performed By: #### 1 6801, 65, 20202 #### [facility] [address], [address] [place] [address] Flatwork Catcher: Sin Viveros MD ELECTROLYTE BALANCE 8 mmol/L (calc) Normal 7-17 [facility] Comment on above: Performed By: #### 1 6801, 6516, 52464 #### [facility] [place] [address] Flatwork Catcher: Sin Viveros MD GFR/1.73 sq M.predicted among non-blacks MDRD (S/P/Bld) [Vol rate/Area] 88 mL/min/{1.73_m2} Normal > OR = 60 [facility] Comment on above: Performed By: #### 1 6801, 6516, 37346 #### [facility] [place] [address] Flatwork Catcher: Sin Viveros MD Glucose [Mass/Vol] 122 mg/dL High 65-99 [facility] Comment on above: Result Comment: Fasting reference interval For someone without known diabetes, a glucose value between 100 and 125 mg/dL is consistent with prediabetes and should be confirmed with a follow-up test. Performed By: #### 1 6801, 65, 87217 #### [facility] [address], [address] [place] [address] Flatwork Catcher: Sin Viveros MD Potassium [Moles/Vol] 4.5 mmol/L Normal 3.5-5.[address] [facility] Comment on above: Performed By: #### 1 6801, 65, 66910 #### [facility] [place] [address] Flatwork Catcher: Sin Viveros MD Protein [Mass/Vol] 7.1 g/dL Normal 6.1-8.1 [facility] Comment on above: Performed By: #### 1 6801, 65, 05861 #### [facility] [address], [address] [place] [address] Flatwork Catcher: Sin Viveros MD Sodium [Moles/Vol] 138 mmol/L Normal 135-146 [facility] Comment on above: Performed By: #### 1 6801, 6516, 23199 #### [facility] [address], [address] [place] [address] Flatwork Catcher: Sin Viveros MD Urea nitrogen [Mass/Vol] 18 mg/dL Normal 7-25 [facility] Comment on above: Performed By: #### 1 6801, 65, 12441 #### [facility] [address], [address] [place] [address] Flatwork Catcher: Sin Viveros MD HEMOGLOBIN A1c WITH eAGon eAG (mmol/L) 8.9 mmol/L Normal [facility] Comment on above: Performed By: #### 1 6801, 65, 75268 #### [facility] [place] [address] Flatwork Catcher: Sin Viveros MD HbA1c (Bld) [Mass fraction] [...] diabetes for children. Performed By: #### 1 6801, 65, 81675 #### [facility] [place] [address] Flatwork Catcher: Sin Viveros MD Magnesium [Mass/Vol] 160 mg/dL Normal [facility] Comment on above: Performed By: #### 1 6802, 6517, 80064 #### [facility] [place] [address] Flatwork Catcher: Sin Viveros MD COMPREHENSIVE METABOLIC PANE L W/ANION GAPon 02-07-2025 Albumin [Mass/Vol] 4.7 g/dL Normal 3.6-5.1 [facility] Comment on above: Order Comment: FASTI NG:YESFASTING: YES Performed By: #### 9 7217, 71909, 21546, 7600, 99629 #### [facility] [place] [address] Flatwork Catcher: Sin Viveros MD ALP [Catalytic activity/Vol] 57 U/L Normal 35-144 [facility] Comment on above: Order Comment: FASTI NG:YESFASTING: YES Performed By: #### 9 7217, 65347, 26505, 7600, 76769 #### [facility] [place] [address] Flatwork Catcher: Sin Viveros MD ALT [Catalytic activity/Vol] 19 U/L Normal 9-46 [facility] Comment on above: Order Comment: FASTI NG:YESFASTING: YES Performed By: #### 9 7217, 89243, 84133, 7600, 68226 #### [facility] [place] [address] Flatwork Catcher: Sin Viveros MD AST [Catalytic activity/Vol] 19 U/L Normal 10-35 [facility] Comment on above: Order Comment: FASTI NG:YESFASTING: YES Performed By: #### 9 7217, 84829, 80269, 7600, 23949 #### [facility] [place] [address] Flatwork Catcher: Sin Viveros MD Bilirubin [Mass/Vol] 0.7 mg/dL Normal 0.2-1.2 [facility] Comment on above: Order Comment: FASTI NG:YESFASTING: YES Performed By: #### 9 7217, 27403, 03388, 7600, 28216 #### [facility] [place] [address] Flatwork Catcher: Sin Viveros MD Calcium [Mass/Vol] 9.4 mg/dL Normal 8.6-10.3 [facility] Comment on above: Order Comment: FASTI NG:YESFASTING: YES Performed By: #### 9 7217, 79657, 69722, 7600, 01442 #### [facility] [place] [address] Flatwork Catcher: Sin Viveros MD Chloride [Moles/Vol] 104 mmol/L Normal 98-110 [facility] Comment on above: Order Comment: FASTI NG:YESFASTING: YES Performed By: #### 9 7217, 90610, 37006, 7600, 70386 #### [facility] [place] [address] Flatwork Catcher: Sin Viveros MD CO2 [Moles/Vol] 27 mmol/L Normal 20-32 [facility] Comment on above: Order Comment: FASTI NG:YESFASTING: YES Performed By: #### 9 7217, 43499, 21701, 7600, 44654 #### [facility] [place] [address] Flatwork Catcher: Sin Viveros MD Creatinine [Mass/Vol] 0.87 mg/dL Normal 0.70-1.28 [facility] Comment on above: Order Comment: FASTI NG:YESFASTING: YES Performed By: #### 9 7217, 58933, 56263, 7600, 63895 #### [facility] [place] [address] Flatwork Catcher: Sin Viveros MD ELECTROLYTE BALANCE 9 mmol/L (calc) Normal 7-17 [facility] Comment on above: Order Comment: FASTI NG:YESFASTING: YES Performed By: #### 9 72, 33217, 10445, 7600, 75364 #### [facility] [address], [address] [place] [address] Flatwork Catcher: Sin Viveros MD GFR/1.73 sq M.predicted among non-blacks MDRD (S/P/Bld) [Vol rate/Area] 88 mL/min/{1.73_m2} Normal > OR = 60 [facility] Comment on above: Order Comment: FASTI NG:YESFASTING: YES Performed By: #### 9 7217, 36012, 25650, 7600, 16843 #### [facility] [address], [address] [place] [address] Flatwork Catcher: Sin Viveros MD Glucose [Mass/Vol] 137 mg/dL High 65-99 [facility] Comment on above: Order Comment: FASTI NG:YESFASTING: YES Result Comment: Fasting reference interval For someone without known diabetes, a glucose value >125 mg/dL indicates that they may have diabetes and this should be confirmed with a follow-up test. Performed By: #### 9 7217, 73909, 33163, 7600, 32307 #### [facility] [address], [address] [place] [address] Flatwork Catcher: Sin Viveros MD Potassium [Moles/Vol] 4.8 mmol/L Normal 3.5-5.3 [facility] Comment on above: Order Comment: FASTI NG:YESFASTING: YES Performed By: #### 9 7217, 44175, 40096, 7600, 65068 #### [facility] [address], [address] [place] [address] Flatwork Catcher: Sin Viveros MD Protein [Mass/Vol] 7.2 g/dL Normal 6.1-8.1 [facility] Comment on above: Order Comment: FASTI NG:YESFASTING: YES Performed By: #### 9 7217, 13439, 43246, 7600, 09899 #### [facility] [address], [address] [place] [address] Flatwork Catcher: Sin Viveros MD Sodium [Moles/Vol] 140 mmol/L Normal 135-146 [facility] Comment on above: Order Comment: FASTI NG:YESFASTING: YES Performed By: #### 9 7217, 20916, 38277, 7600, 93061 #### [facility] [address], [address] [place] [address] Flatwork Catcher: Sin Viveros MD Urea nitrogen [Mass/Vol] 18 mg/dL Normal 7-25 [facility] Comment on above: Order Comment: FASTI NG:YESFASTING: YES Performed By: #### 9 7217, 83241, 25518, 7600, 71148 #### [facility] [address], [address] [place] [address] Flatwork Catcher: Sin Viveros MD HEMOGLOBIN A1c WITH eAGon eAG (mmol/L) 8.4 mmol/L Normal [facility] Comment on above: Performed By: #### 9 72, 46728, 76047, 7600, 19226 #### [facility] [address], [address] [place] [address] Flatwork Catcher: Sin Viveros MD HbA1c (Bld) [Mass fraction] [...] for children. Performed By: #### 9 7217, 93172, 40542, 7600, 56881 #### [facility] [address], [address] [place] [address] Flatwork Catcher: Sin Viveros MD Magnesium [Mass/Vol] 151 mg/dL Normal [facility] Comment on above: Performed By: #### 9 7217, 86041, 04384, 7600, 09797 #### [facility] [address] [facility], [address] [place] [address] Flatwork Catcher: Sin Viveros MD Lower extremity venous duple x lefton 02-06-[address] [address] ext-[phone], Vascular Lab Report VASC US LOWER EXTREMITY VENOUS DUPLEX LEFT Patient Name: HATTIE VALDERRAMA Reading [id number] Jc Arce Physician: Study Date: 02/06/2025 Ordering [id number] NEYMAR Sánchez Provider: DUC MRN/PID: [id number] Fellow: Technologist: Monalisa Rojas RVT/AB Date of 1945 Technologist 2: /Age: years Gender: M Admission Status: Outpatient Location [facility] Performed: Diagnosis/ICD: Pain in left thigh-M79.652 CPT Codes: 38701 Peripheral venous duplex scan for DVT Limited [...] Spontaneous/Phasic Peroneal Yes None PTV Yes None [id number] Jc Arce MD Final Jc Wills MD - 02/06/2025 [place] [id number] [phone], Vascular Lab Report VASC US LOWER EXTREMITY VENOUS DUPLEX LEFT Patient Name: HATTIE VALDERRAMA Reading [id number] Jc Arce Physician: Study Date: 02/06/2025 Ordering [id number] NEYMAR Sánchez Provider: DUC MRN/PID: [id number] Fellow: Technologist: Monalisa Rojas RVT/AB Date of 1945 Technologist 2: /Age: years Gender: M Admission Status: Outpatient Location [facility] Performed: Diagnosis/ICD: Pain in left thigh-M79.652 CPT Codes: 67430 Peripheral venous duplex scan for DVT Limited [...] Spontaneous/Phasic Peroneal Yes None PTV Yes None [id number] Jc Arce MD Final [facility] Work Phone: Radiology Study observation (narrative) [facility] Work Phone: Lower extremity venous duple x leftOrdered By: Jc Arce on 02-06-2025 [facility] Work Phone: VASC US LOWER EXTREMITY VENO US DUPLEX LEFTon 02-06-2025 VASC US LOWER EXTREMITY [place] [address] ext-[phone], Vascular Lab Report VASC US LOWER EXTREMITY VENOUS DUPLEX LEFT Patient Name: HATTIE VALDERRAMA Reading [id number] Jc Arce Physician: Study Date: 02/06/2025 Ordering [id number] NEYMAR Sánchez Provider: DUC MRN/PID: [id number] Fellow: Technologist: Monalisa Rojas RVT/AB Date of 1945 Technologist 2: /Age: years Gender: M Admission Status: Outpatient Location [facility] Performed: Diagnosis/ICD: Pain in left thigh-M79.652 CPT Codes: 52309 Peripheral venous duplex scan for DVT Limited [...] Spontaneous/Phasic Peroneal Yes None PTV Yes None [id number] Jc Arce MD Final [facility] XR FEMUR LEFT 2+ VIEWSon XR FEMUR LEFT 2+ VIEWS Interpreted By: Ned Sexton, STUDY: XR FEMUR LEFT 2+ VIEWS; ; 02/06/2025 10:51 am INDICATION: Signs/Symptoms:pain. ,M79.652 Pain in left thigh COMPARISON: None. ACCESSION NUMBER(S): [id number] ORDERING CLINICIAN: NEYMAR XAVIER FINDINGS: LEFT FEMUR-AP AND LATERAL Moderate narrowing of the hip joint space is seen laterally consistent with osteoarthrosis. No fracture. Total left hip arthroplasty is present. The prosthesis are intact. Periprosthetic lucency. No suprapatellar effusion. IMPRESSION: Moderate osteoarthrosis of the left hip. MACRO: None Signed by: Ned Sexton 02/06/2025 1:43 PM Dictation workstation: [id number] [facility] XR Femur - left 2 Viewson Moderate osteoarthro sis of the left hip. MACRO: None Signed by: Ned Sexton 02/06/2025 1:43 PM Dictation workstation: [id number] Interpreted By: Ned Sexton, STUDY: XR FEMUR LEFT 2+ VIEWS; ; 02/06/2025 10:51 am INDICATION: Signs/Symptoms:pain. ,M79.652 Pain in left thigh COMPARISON: None. ACCESSION NUMBER(S): [id number] ORDERING CLINICIAN: NEYMAR XAVIER FINDINGS: LEFT FEMUR-AP [...] in left thigh COMPARISON: None. ACCESSION NUMBER(S): [id number] ORDERING CLINICIAN: NEYMAR XAVIER FINDINGS: LEFT FEMUR-AP AND LATERAL Moderate narrowing of the hip joint space is seen laterally consistent with osteoarthrosis. No fracture. Total left hip arthroplasty is present. The prosthesis are intact. Periprosthetic lucency. No suprapatellar effusion. IMPRESSION: Moderate osteoarthrosis of the left hip. MACRO: None Signed by: Ned Sexton 02/06/2025 1:43 PM Dictation workstation: [id number] [facility] Work Phone: Radiology Study observation (narrative) [facility] Work Phone: XR Femur - left 2 ViewsOrder ed By: Ned Sexton on 02-06-2025 [facility] Work Phone: COMPREHENSIVE METABOLIC PANE L W/ANION GAPon 01-31-2025 ALBUMIN Normal [facility] Comment on above: Performed By: #### 9 6418, 26383, 68074, 7600, 25704 #### [facility] [address] , [address] [place] [address] Flatwork Catcher: Sin Viveros MD ALKALINE PHOSPHATASE Normal [facility] Comment on above: Performed By: #### 9 9017, 35213, 33641, 7600, 66080 #### [facility] [address], [address] [place] [address] Flatwork Catcher: Sin Viveros MD ALT Normal [facility] Comment on above: Performed By: #### 9 7217, 89359, 27282, 7600, 04920 #### [facility] [address], [address] [place] [address] Flatwork Catcher: Sin Viveros MD AST Normal [facility] Comment on above: Performed By: #### 9 7217, 37844, 52138, 7600, 19672 #### [facility] [address], [address] [place] [address] Flatwork Catcher: Sin Viveros MD BILIRUBIN, TOTAL Normal [facility] Comment on above: Performed By: #### 9 7217, 18389, 92420, 7600, 61245 #### [facility] [address], [address] [place] [address] Flatwork Catcher: Sin Viveros MD CALCIUM Normal [facility] Comment on above: Performed By: #### 9 7217, 83470, 03937, 7600, 42868 #### [facility] [address], [address] [place] [address] Flatwork Catcher: Sin Viveros MD CARBON DIOXIDE Normal [facility] Comment on above: Performed By: #### 9 7217, 29300, 11035, 7600, 54022 #### [facility] [address], [address] [place] [address] Flatwork Catcher: Sin Viveros MD CHLORIDE Normal [facility] Comment on above: Performed By: #### 9 7217, 67170, 86925, 7600, 76514 #### [facility] [address], [address] [place], [place] [id number] Flatwork Catcher: Sin Viveros MD CREATININE Normal [facility] Comment on above: Performed By: #### 9 7217, 92298, 70310, 7600, 13499 #### [facility] [address], [address] [place], [place] [id number] Flatwork Catcher: Sin Viveros MD EGFR Normal [facility] Comment on above: Performed By: #### 9 7217, 86307, 28389, 7600, 75168 #### [facility] of [address], [address] [place] [address] Flatwork Catcher: Sin Viveros MD ELECTROLYTE BALANCE Normal [facility] Comment on above: Performed By: #### 9 7217, 74564, 74722, 7600, 83480 #### [facility] of [address], [address] [place] [address] Flatwork Catcher: Sin Viveros MD GLUCOSE Normal [facility] Comment on above: Performed By: #### 9 7217, 80384, 93188, 7600, 80496 #### [facility] of [address], [address] [place] [address] Flatwork Catcher: Sin Viveros MD POTASSIUM Normal [facility] Comment on above: Performed By: #### 9 7217, 48292, 79526, 7600, 71767 #### [facility] of [address], [address] [place] [address] Flatwork Catcher: Sin Viveros MD PROTEIN, TOTAL Normal [facility] Comment on above: Performed By: #### 9 7217, 97543, 36470, 7600, 44921 #### [facility] of [place] [address] Flatwork Catcher: Sin Viveros MD SODIUM Normal [facility] Comment on above: Performed By: #### 9 7217, 33873, 08753, 7600, 44076 #### [facility] of [address], [address] [place] [address] Flatwork Catcher: Sin Viveros MD UREA NITROGEN (BUN) Normal [facility] Comment on above: Performed By: #### 9 7217, 50891, 95101, 7600, 84217 #### [facility] of [address], [address] [place] [address] Flatwork Catcher: Sin Viveros MD HEMOGLOBIN A1c WITH eAGon eAG (mmol/L) 8.5 mmol/L Normal [facility] Comment on above: Performed By: #### 9 7217, 36104, 80698, 7600, 89256 #### [facility] [place] [address] Flatwork Catcher: Sin Viveros MD HbA1c (Bld) [Mass fraction] [...] for children. Performed By: #### 9 7217, 29312, 12366, 7600, 36225 #### [facility] [address], [address] [place] [address] Flatwork Catcher: Sin Viveros MD Magnesium [Mass/Vol] 154 mg/dL [facility] Comment on above: Performed By: #### 9 7217, 28844, 88891, 7600, 63210 #### [facility] [place] [address] Flatwork Catcher: Sin Vievros MD LIPID PANEL, STANDARD 08-0 CHOL/HDLC RATIO Normal [facility] Comment on above: Order Comment: FASTI NG:YES FASTING: YES Performed By: #### 9 7217, 91242, 77614, 7600, 99198 #### [facility] [address], [address] [place] [address] Flatwork Catcher: Sin Viveros MD CHOLESTEROL, TOTAL Normal [facility] Comment on above: Order Comment: FASTI NG:YES FASTING: YES Performed By: #### 9 7217, 46713, 94493, 7600, 48922 #### [facility] [place] [address] Flatwork Catcher: Sin Viveros MD HDL CHOLESTEROL Normal [facility] Comment on above: Order Comment: FASTI NG:YES FASTING: YES Performed By: #### 9 7217, 51736, 79189, 7600, 96803 #### [facility] [address], [address] [place] [address] Flatwork Catcher: Sin Viveros MD LDL-CHOLESTEROL Normal [facility] Comment on above: Order Comment: FASTI NG:YES FASTING: YES Performed By: #### 9 7217, 84261, 09930, 7600, 36079 #### [facility] [address], [address] [place] [address] Flatwork Catcher: Sin Viveros MD NON HDL CHOLESTEROL Normal [facility] Comment on above: Order Comment: FASTI NG:YES FASTING: YES Performed By: #### 9 7217, 26478, 08380, 7600, 18754 #### [facility] [address], [address] [place] [address] Flatwork Catcher: Sin Viveros MD TRIGLYCERIDES Normal [facility] Comment on above: Order Comment: FASTI NG:YES FASTING: YES Performed By: #### 9 7217, 94891, 69271, 7600, 42435 #### [facility] [address], [address] [place] [address] Flatwork Catcher: Sin Viveros MD PSA, TOTAL, MONITORINGon PSA, TOTAL, MONITORING 1.98 ng/mL Normal < OR = 4.00 [facility] Comment on above: Result Comment: The total PSA value from this assay system is standardized against the WHO standard. The test result will be approximately 20% lower when compared to the equimolar-standardized total PSA (Renny [place]). Comparison of serial PSA results should be interpreted with this fact in mind. This test was performed using the Siemens chemiluminescent method. Values obtained from different assay methods cannot be used interchangeably. PSA levels, regardless of value, should not be interpreted as absolute evidence of the presence or absence of disease. Performed By: #### 9 7217, 94227, 81504, 7600, 67647 #### [facility] [address], [address] [place] [address] Flatwork Catcher: Sin Viveros MD TSH W/REFLEX TO FT4on 2024 TSH W/REFLEX TO FT4 1.35 mIU/L Normal 0.40-4.50 [facility] Comment on above: Performed By: #### 9 7217, 43984, 89413, 7600, 94275 #### [facility] [address], [address] [place] [address] Flatwork Catcher: Sin Viveros MD CT CHEST W IV CONTRASTon CT CHEST W IV CONTRAST Interpreted By: Yaw Mena, STUDY: CT CHEST W IV CONTRAST; 10/13/2024 3:03 pm INDICATION: Follow-up recent history of pneumonia, status post recent discharged from outside hospital.. COMPARISON: None. ACCESSION NUMBER(S): [id number] ORDERING CLINICIAN: NEYMAR XAVIER TECHNIQUE: Helical data [...] Yaw Astudillo 10/15/2024 7:55 AM Dictation workstation: [id number] [facility] CBC (INCLUDES DIFF/PLT)on Basophils (Bld) [#/Vol] 0.045 10*3/uL Normal 0-200 [facility] Comment on above: Performed By: #### 9 457, 6399 #### [facility] of [address], [address] [place] [address] Flatwork Catcher: Sin Viveros MD Basophils/100 WBC (Bld) 0.5 % Normal [facility] Comment on above: Performed By: #### 9 664, 6399 #### [facility] [place] [address] Flatwork Catcher: Sin Viveros MD Eosinophils (Bld) [#/Vol] 0.045 10*3/uL Normal 15-500 [facility] Comment on above: Performed By: #### 9 872, 6399 #### [facility] of [place] [address] Flatwork Catcher: Sin Viveros MD Eosinophils/100 WBC (Bld) 0.5 % Normal [facility] Comment on above: Performed By: #### 9 695, 6399 #### [facility] of [place] [address] Flatwork Catcher: Sin Viveros MD Erythrocyte distribution width (RBC) [Ratio] 13.4 % Normal 11.0-15.0 [facility] Comment on above: Performed By: #### 9 900, 6399 #### [facility] of [place] [address] Flatwork Catcher: Sin Viveros MD Hematocrit (Bld) [Volume fraction] 37.1 % Low 38.5-50.0 [facility] Comment on above: Performed By: #### 9 771, 6399 #### [facility] of [address] [place] [address] Flatwork Catcher: Sin Viveros MD Hemoglobin (Bld) [Mass/Vol] 12.1 g/dL Low 13.2-17.1 [facility] Comment on above: Performed By: #### 9 823, 6399 #### [facility] of [place] [address] Flatwork Catcher: Sin Viveros MD Lymphocytes (Bld) [#/Vol] 1.896 10*3/uL Normal 850-3900 [facility] Comment on above: Performed By: #### 9 530, 6399 #### [facility] [place] [address] Flatwork Catcher: Sin Viveros MD Lymphocytes/100 WBC (Bld) 21.3 % Normal [facility] Comment on above: Performed By: #### 9 911, 6399 #### [facility] [place] [address] Flatwork Catcher: Sin Viveros MD MCH (RBC) [Entitic mass] 30.9 pg Normal 27.0-33.0 [facility] Comment on above: Performed By: #### 9 915, 6399 #### [facility] [place] [address] Flatwork Catcher: Sin Viveros MD MCHC (RBC) [Mass/Vol] 32.6 g/dL Normal 32.0-36.0 [facility] Comment on above: Result Comment: For adults, a slight decrease in the calculated MCHC value (in the range of 30 to 32 g/dL) is most likely not clinically significant; however, it should be interpreted with caution in correlation with other red cell parameters and the patient's clinical condition. Performed By: #### 9 3023, 6399 #### [facility] of [place] [address] Flatwork Catcher: Sin Viveros MD MCV (RBC) [Entitic vol] 94.6 fL Normal 80.0-100.0 [facility] Comment on above: Performed By: #### 9 5, 6399 #### [facility] of [address], [address] [place] [address] Flatwork Catcher: Sin Viveros MD Monocytes (Bld) [#/Vol] 1.113 10*3/uL High 200-950 [facility] Comment on above: Performed By: #### 9 5, 6399 #### [facility] of [address], [address] [place] [address] Flatwork Catcher: Sin Viveros MD Monocytes/100 WBC (Bld) 12.5 % Normal [facility] Comment on above: Performed By: #### 9 5, 6399 #### [facility] of [address], [address] [place] [address] Flatwork Catcher: Sin Viveros MD Neutrophils (Bld) [#/Vol] 5.803 10*3/uL Normal 2054-6313 [facility] Comment on above: Performed By: #### 9 2664, 6399 #### [facility] of [address], [address] [place] [address] Flatwork Catcher: Sin Viveros MD Neutrophils/100 WBC (Bld) 65.2 % Normal [facility] Comment on above: Performed By: #### 9 5, 6399 #### [facility] of [address], [address] [place] [address] Flatwork Catcher: Sin Viveros MD Platelet mean volume (Bld) [Entitic vol] 11.3 fL Normal 7.5-12.5 [facility] Comment on above: Performed By: #### 9 2664, 6399 #### [facility] of [address], [address] [place] [address] Flatwork Catcher: Sin Viveros MD Platelets (Bld) [#/Vol] 402 10*3/uL High 140-400 [facility] Comment on above: Performed By: #### 9 2664, 6399 #### [facility] of [address], [address] [place] [address] Flatwork Catcher: Sin Vvieros MD RBC (Bld) [#/Vol] 3.92 10*6/uL Low 4.20-5.80 [facility] Comment on above: Performed By: #### 9 767, 6399 #### [facility] of [place] [address] Flatwork Catcher: Sin Viveros MD WBC (Bld) [#/Vol] 8.9 10*3/uL Normal 3.8-10.8 [facility] Comment on above: Performed By: #### 9 516, 6399 #### [facility] [place] [address] Flatwork Catcher: Sin Viveros MD COMPREHENSIVE METABOLIC PANE L W/ANION GAPon 10-07-2024 Albumin [Mass/Vol] 4.0 g/dL Normal 3.6-5.1 [facility] Comment on above: Performed By: #### 9 642, 6399 #### [facility] [place] [address] Flatwork Catcher: Sin Viveros MD ALP [Catalytic activity/Vol] 50 U/L Normal 35-144 [facility] Comment on above: Performed By: #### 9 362, 6399 #### [facility] of [place] [address] Flatwork Catcher: Sin Viveros MD ALT [Catalytic activity/Vol] 23 U/L Normal 9-46 [facility] Comment on above: Performed By: #### 9 017, 6399 #### [facility] [place] [address] Flatwork Catcher: Sin Viveros MD AST [Catalytic activity/Vol] 18 U/L Normal 10-35 [facility] Comment on above: Performed By: #### 9 092, 6399 #### [facility] [place] [address] Flatwork Catcher: Sin Viveros MD Bilirubin [Mass/Vol] 0.7 mg/dL Normal 0.2-1.2 [facility] Comment on above: Performed By: #### 9 2664, 6399 #### [facility] [place] [address] Flatwork Catcher: Sin Viveros MD Calcium [Mass/Vol] 9.3 mg/dL Normal 8.6-10.3 [facility] Comment on above: Performed By: #### 9 2664, 6399 #### [facility] [place] [address] Flatwork Catcher: Sin Viveros MD Chloride [Moles/Vol] 104 mmol/L Normal 98-110 [facility] Comment on above: Performed By: #### 9 2664, 6399 #### [facility] [place] [address] Flatwork Catcher: Sin Viveros MD CO2 [Moles/Vol] 30 mmol/L Normal 20-32 [facility] Comment on above: Performed By: #### 9 2664, 6399 #### [facility] [place] [address] Flatwork Catcher: Sin Viveros MD Creatinine [Mass/Vol] 0.89 mg/dL Normal 0.70-1.[address] [facility] Comment on above: Performed By: #### 9 075, 6399 #### [facility] of [place] [address] Flatwork Catcher: Sin Viveros MD ELECTROLYTE BALANCE 8 mmol/L (calc) Normal 7-17 [facility] Comment on above: Performed By: #### 9 2664, 6399 #### [facility] [place] [address] Flatwork Catcher: Sin Viveros MD GFR/1.73 sq M.predicted among non-blacks MDRD (S/P/Bld) [Vol rate/Area] 88 mL/min/{1.73_m2} Normal > OR = 60 [facility] Comment on above: Performed By: #### 9 629, 6399 #### [facility] of [address], [address] [place] [address] Flatwork Catcher: Sin Viveros MD Glucose [Mass/Vol] 74 mg/dL Normal 65-99 [facility] Comment on above: Result Comment: Fasting reference interval Performed By: #### 9 5355, 6399 #### [facility] of [address], [address] [place] [address] Flatwork Catcher: Sin Viveros MD Potassium [Moles/Vol] 4.8 mmol/L Normal 3.5-5.3 [facility] Comment on above: Performed By: #### 9 357, 6399 #### [facility] of [address], [address] [place] [address] Flatwork Catcher: Sin Viveros MD Protein [Mass/Vol] 6.7 g/dL Normal 6.1-8.1 [facility] Comment on above: Performed By: #### 9 460, 6399 #### [facility] [place] [address] Flatwork Catcher: Sin Viveros MD Sodium [Moles/Vol] 142 mmol/L Normal 135-146 [facility] Comment on above: Performed By: #### 9 523, 6399 #### [facility] [place] [address] Flatwork Catcher: Sin Viveros MD Urea nitrogen [Mass/Vol] 19 mg/dL Normal 7-25 [facility] Comment on above: Performed By: #### 9 433, 6399 #### [facility] [place] [address] Flatwork Catcher: Sin Viveros MD Proteinon 10-06-2024 Protein [Mass/Vol] 6.9 g/dL Normal 6.4-8.2 [facility] Comment on above: Performed By: #### 2 885-2 #### NEYMAR Martino ([id number]) [facility] ([facility]) [address] [place] [address] Protein Qn (U) 13 mg/dL Normal 5-25 [facility] Comment on above: Performed By: #### 2 7298-9 #### NEYMAR Martino ([id number]) [facility] ([facility]) [address] [place] [address] Protein electrophoresis pane nicolás 10-06-2024 Albumin [Mass/Vol] 3.8 g/dL Normal 3.4-5.0 [facility] Comment on above: Performed By: #### 2 4351-9 #### NEYMAR Martino ([id number]) [facility] ([facility]) [id number] [place] [address] ALPHA 1 GLOBULIN 0.3 g/dL Normal 0.2-0.6 [facility] Comment on above: Performed By: #### 2 4351-9 #### NEYMAR Martino ([id number]) [facility] LAB ([facility]) [address] [place] [address] 61677 ALPHA 2 GLOBULIN 0.9 g/dL Normal 0.4-1.1 [facility] Amb[facility] Comment on above: Performed By: #### 2 4351-9 #### NEYMAR Martino ([id number]) [facility] ([facility]) [address] [place] [address] 82695 BETA GLOBULIN 1.0 g/dL Normal 0.5-1.2 [facility] Comment on above: Performed By: #### 2 4351-9 #### NEYMAR Martino ([id number]) [facility] ([facility]) [address] [place] [address] 77196 GAMMA GLOBULIN 0.9 g/dL Normal 0.5-1.4 [facility] Comment on above: Performed By: #### 2 4351-9 #### NEYMAR Martino ([id number]) [facility] ([facility]) [address] [place] [address] 20144 PATH REVIEW-SERUM PROTEIN ELECTROPHORESIS Reviewed and approved by EDUARDO GANDHI on 10/07/24 at 6:11 PM. [facility] Amb[facility] Comment on above: Performed By: #### 2 4351-9 #### NEYMAR Martino ([id number]) [facility] ([facility]) [address] [place] [address] 15609 PROTEIN ELECTROPHORESIS COMMENT Normal. [facility] Comment on above: Performed By: #### 2 4351-9 #### NEYMAR Martino ([id number]) [facility] ([facility]) [address] [place] [address] 40096 URINE PROTEIN ELECTROPHORESI Son 10-06-2024 Albumin Elph (U) [Mass fraction] 49.9 % [facility] Comment on above: Performed By: #### E LUSP #### NEYMAR Martino ([id number]) [facility] ([facility]) [address] [place] [address] 45292 Alpha 1 globulin Elph (U) [Mass fraction] 10.2 % [facility] Comment on above: Performed By: #### E LUSP #### NEYMAR Martino ([id number]) [facility] ([facility]) [address] [place] [address] 49452 Alpha 2 globulin Elph (U) [Mass fraction] 16.6 % [facility] Comment on above: Performed By: #### E LUSP #### NEYMAR Martino ([id number]) [facility] ([facility]) [address] [place] [address] 96064 Beta globulin Elph (U) [Mass fraction] 14.2 % [facility] Comment on above: Performed By: #### E LUSP #### NEYMAR Martino ([id number]) [facility] ([facility]) [address] [place] [address] 25659 Gamma globulin Elph (U) [Mass fraction] 9.1 % [facility] Comment on above: Performed By: #### E LUSP #### NEYMAR Maritno ([id number]) [facility] ([facility]) [address] [place] [address] 01464 PATH REVIEW-URINE PROTEIN ELECTROPHORESIS Reviewed and approved by EDUARDO GANDHI on 10/07/24 at 6:10 PM. [facility] Comment on above: Performed By: #### E LUSP #### NEYMAR Martino ([id number]) [facility] ([facility]) [address] [place] [address] URINE ELECTROPHORESIS COMMENT SEE COMMENT Normal [facility] Comment on above: Result Comment: Jake al. Performed By: #### E CHAPARRO #### NEYMAR Martino ([id number]) [facility] ([facility]) [address] [place] [address] Culture, Blood (WB)on 2024 CUB Blood cultures x2, f rom two different sites No growth in 5 days. Normal [facility] Comment on above: Performed By: #### L 503.7505, L501.9100, L503.0106, L501.9985, L501.9520, L505.5000 #### [facility] [address] [place], [address] Absolute neutrophil countOrd ered By: Marcelino Gracia on 09-22-2024 Neutrophils (Bld) [#/Vol] 12.5 10*3/uL High 2.0-7.7 [facility] Anion gap in Serum or Plasma Ordered By: Marcelino Gracia on 09-22-2024 Anion gap [Moles/Vol] 11 mmol/L 5-15 [facility] BUN/creatinine ratioOrdered By: Marcelino Gracia on 09-22-2024 Urea nitrogen/Creatinine [Mass ratio] 31.4 mg/mg High 10-20 [facility] Basic Metabolic Profile (BMP )on 09-22-2024 BUN/CRE 31.4 RATIO High [facility]20 [facility] Comment on above: Performed By: #### L 503.7505, L501.9100, L503.0106, L501.9985, L501.9520, L505.5000 #### [facility] [address] [place], [address] Calcium [Mass/Vol] 8.8 mg/dL Normal 7.6-11.0 [facility] Comment on above: Performed By: #### L 503.7505, L501.9100, L503.0106, L501.9985, L501.9520, L505.5000 #### [facility] [address] [place], [address] Chloride [Moles/Vol] 105 mmol/L Normal 98-108 [facility] Comment on above: Performed By: #### L 503.7505, L501.9100, L503.0106, L501.9985, L501.9520, L505.5000 #### [facility] [address] [place], [address] CO2 [Moles/Vol] 23.6 mmol/L Normal 21.0-32.0 [facility] Comment on above: Performed By: #### L 503.7505, L501.9100, L503.0106, L501.9985, L501.9520, L505.5000 #### [facility] [address] [place], [address] Creatinine [Mass/Vol] 0.79 mg/dL Normal 0.70-1.20 [facility] Comment on above: Performed By: #### L 503.7505, L501.9100, L503.0106, L501.9985, L501.9520, L505.5000 #### [facility] [address] [place], [address] ECRCL 92.70 ml/min Normal 50-250 [facility] Comment on above: Performed By: #### L 503.7505, L501.9100, L503.0106, L501.9985, L501.9520, L505.5000 #### [facility] [address] [place], [address] GAP 11 Normal 5-15 [facility] Comment on above: Performed By: #### L 503.7505, L501.9100, L503.0106, L501.9985, L501.9520, L505.5000 #### [facility] [address] [place], [address] GFR/1.73 sq M.predicted among non-blacks MDRD (S/P/Bld) [Vol rate/Area] 91 mL/min/{1.73_m2} Normal >60 [facility] Comment on above: Result Comment: mL/m in/1.73m2 CKD-EPI Creatinine Equation (2020) Performed By: #### L 503.7505, L501.9100, L503.0106, L501.9985, L501.9520, L505.5000 #### [facility] [address] [place], [address] Glucose [Mass/Vol] 234 mg/dL High 70-99 [facility] Comment on above: Performed By: #### L 503.7505, L501.9100, L503.0106, L501.9985, L501.9520, L505.5000 #### [facility] [address] [place], [address] Potassium [Moles/Vol] 4.0 mmol/L Normal 3.3-5.1 [facility] Comment on above: Performed By: #### L 503.7505, L501.9100, L503.0106, L501.9985, L501.9520, L505.5000 #### [facility] [address] [place], [address] Sodium [Moles/Vol] 140 mmol/L Normal 133-145 [facility] Comment on above: Performed By: #### L 503.7505, L501.9100, L503.0106, L501.9985, L501.9520, L505.5000 #### [facility] [address] [place], [address] Urea nitrogen [Mass/Vol] 25 mg/dL High 4-19 [facility] Comment on above: Performed By: #### L 503.7505, L501.9100, L503.0106, L501.9985, L501.9520, L505.5000 #### [facility] [address] [place], [address] Basophil percentageOrdered B y: Marcelino Gracia on 09-22-2024 Basophils/100 WBC (Bld) 0.1 % 0-1 [facility] Bedside Glucoseon 09-22-2024 FINGERSTICK GLU 260 mg/dL High 74-106 [facility] Comment on above: Result Comment: ANDREW GEMENT OF PATIENT CARE PER NURSING PROTOCOL Performed By: #### L 503.7505, L501.9100, L503.0106, L501.9985, L501.9520, L505.5000 #### [facility] [address] [place], [address] FINGERSTICK GLU 204 mg/dL High 74-106 [facility] Comment on above: Result Comment: ANDREW GEMKARYN OF PATIENT CARE PER NURSING PROTOCOL Performed By: #### L 503.7505, L501.9100, L503.0106, L501.9985, L501.9520, L505.5000 #### [facility] [address] [place], [address] CBC W/Diff, Automatedon 08-28 Absolute Lymph 1.06 X10 3/uL Normal 0.83-4.51 [facility] Comment on above: Performed By: #### L 503.7505, L501.9100, L503.0106, L501.9985, L501.9520, L505.5000 #### [facility] [address] [place], [address] Absolute Neut 12.5 X10 3/uL High 2.0-7.7 [facility] Comment on above: Performed By: #### L 503.7505, L501.9100, L503.0106, L501.9985, L501.9520, L505.5000 #### [facility] [address] [place], [address] Basophils/100 WBC (Bld) 0.1 % Normal 0-1 [facility] Comment on above: Performed By: #### L 503.7505, L501.9100, L503.0106, L501.9985, L501.9520, L505.5000 #### [facility] [address] [place], [address] Eosinophils/100 WBC (Bld) 0.0 % Normal 0-5 [facility] Comment on above: Performed By: #### L 503.7505, L501.9100, L503.0106, L501.9985, L501.9520, L505.5000 #### [facility] [address] [place], [address] Erythrocyte distribution width (RBC) [Ratio] 14.4 % Normal 11.6-14.6 [facility] Comment on above: Performed By: #### L 503.7505, L501.9100, L503.0106, L501.9985, L501.9520, L505.5000 #### [facility] [address] [place], [address] Hematocrit (Bld) [Volume fraction] 35.1 % Low 40-54 [facility] Comment on above: Performed By: #### L 503.7505, L501.9100, L503.0106, L501.9985, L501.9520, L505.5000 #### [facility] [address] [place], [address] Hemoglobin (Bld) [Mass/Vol] 11.7 g/dL Low 13.0-16.5 [facility] Comment on above: Performed By: #### L 503.7505, L501.9100, L503.0106, L501.9985, L501.9520, L505.5000 #### [facility] [address] [place], [address] IG% 0.600 Normal 0.0-0.9 [facility] Comment on above: Result Comment: IG% - Immature Granulocytes (promyelocytes, myelocytes and metamyelocytes) > 1% indicates that a LEFT SHIFT is Present. Performed By: #### L 503.7505, L501.9100, L503.0106, L501.9985, L501.9520, L505.5000 #### [facility] [address] [place], [address] Lymphocytes/100 WBC (Bld) 7.4 % Low 19-41 [facility] Comment on above: Performed By: #### L 503.7505, L501.9100, L503.0106, L501.9985, L501.9520, L505.5000 #### [facility] [address] [place], [address] MCH (RBC) [Entitic mass] 31.0 pg Normal 27.0-32.0 [facility] Comment on above: Performed By: #### L 503.7505, L501.9100, L503.0106, L501.9985, L501.9520, L505.5000 #### [facility] [address] [place], [address] MCHC (RBC) [Mass/Vol] 33.3 g/dL Normal 32-36 [facility] Comment on above: Performed By: #### L 503.7505, L501.9100, L503.0106, L501.9985, L501.9520, L505.5000 #### [facility] [address] [place], [address] MCV (RBC) [Entitic vol] 92.9 fL Normal 80-94 [facility] Comment on above: Performed By: #### L 503.7505, L501.9100, L503.0106, L501.9985, L501.9520, L505.5000 #### [facility] [address] [place], [address] Monocytes/100 WBC (Bld) 4.9 % Normal 0-10 [facility] Comment on above: Performed By: #### L 503.7505, L501.9100, L503.0106, L501.9985, L501.9520, L505.5000 #### [facility] [address] [place], [address] Neutrophils/100 WBC (Bld) 87.0 % High 47-70 [facility] Comment on above: Performed By: #### L 503.7505, L501.9100, L503.0106, L501.9985, L501.9520, L505.5000 #### [facility] [address] [place], [address] Nucleated RBC (Bld) [#/Vol] 0 10*3/uL Normal 0-5 [facility] Comment on above: Performed By: #### L 503.7505, L501.9100, L503.0106, L501.9985, L501.9520, L505.5000 #### [facility] [address] [place], [address] Platelet mean volume (Bld) [Entitic vol] 11.0 fL Normal 6.2-12.0 [facility] Comment on above: Performed By: #### L 503.7505, L501.9100, L503.0106, L501.9985, L501.9520, L505.5000 #### [facility] [address] [place], [address] Platelets (Bld) [#/Vol] 250 10*3/uL Normal 150-450 [facility] Comment on above: Performed By: #### L 503.7505, L501.9100, L503.0106, L501.9985, L501.9520, L505.5000 #### [facility] [address] [place], [address] RBC (Bld) [#/Vol] 3.78 10*6/uL Low 4.6-6.[address] [facility] Comment on above: Performed By: #### L 503.7505, L501.9100, L503.0106, L501.9985, L501.9520, L505.5000 #### [facility] [address] [place], [place], [id number] (584) RDW SD 48.7 fl High 35.1-43.9 [facility] Comment on above: Performed By: #### L 503.7505, L501.9100, L503.0106, L501.9985, L501.9520, L505.5000 #### [facility] [address] [place], [address] WBC (Bld) [#/Vol] 14.4 10*3/uL High 4.4-11.[address] [facility] Comment on above: Performed By: #### L 503.7505, L501.9100, L503.0106, L501.9985, L501.9520, L505.5000 #### [facility] [address] [facility] [place], [place], [id number] (572) Carbon dioxide, total [Moles /volume] in Central venous bloodOrdered By: Marcelino Gracia on 09-22-2024 CO2 [Moles/Vol] 23.6 mmol/L 21.0-32.0 [facility] Chloride assayOrdered By: Wai Gracia on 09-22-2024 Chloride [Moles/Vol] 105 mmol/L 98-108 [facility] Eosinophil percentageOrdered By: Marcelino Gracia on 09-22-2024 Eosinophils/100 WBC (Bld) 0.0 % 0-5 [facility] Erythrocyte distribution wid th ratioOrdered By: Mareclino Gracia on 09-22-2024 Erythrocyte distribution width (RBC) [Ratio] 14.4 % 11.6-14.6 [facility] Erythrocyte distribution wid th standard deviationOrdered By: Marcelino Gracia on 09-22-2024 Erythrocyte distribution width (RBC) [Entitic vol] 48.7 fL High 35.1-43.9 [facility] Estimation of creatinine jesus aranceOrdered By: Marcelino Gracia on 09-22-2024 Estimated Creatinine Clearance Calc 92.70 ml/min 50-250 [facility] GFR/1.73 sq M.predicted mayda g non-blacks MDRD (S/P/Bld) [Vol rate/Area]Ordered By: Marcelino Gracia on 09-22-2024 Estimated GFR (MDRD) Non-Af Amer 91 >60 [facility] Comment on above: mL/min/1.73m2 CKD-EP I Creatinine Equation (2020) [facility] deOrdered By: Marcelino Gracia on 09-22-2024 Bedside Glucose (Misc Panel) 260 mg/dL High 74-106 [facility] Comment on above: MANAGEMENT OF PATIEN T CARE PER NURSING PROTOCOL Hematocrit Auto (Bld) [Volum e fraction]Ordered By: Marcelino Gracia on 09-22-2024 Hematocrit (Bld) [Volume fraction] 35.1 % Low 40-54 [facility] Hemoglobin measurementOrdere d By: Marcelino Gracia on 09-22-2024 Hemoglobin (Bld) [Mass/Vol] 11.7 g/dL Low 13.0-16.5 [facility] Immature granulocytes/100 WB C Auto (Bld)Ordered By: Marcelino Gracia on 09-22-2024 Immature granulocytes/100 WBC (Bld) 0.600 % 0.0-0.9 [facility] Comment on above: IG% - Immature Granu locytes (promyelocytes, myelocytes and metamyelocytes) > 1% indicates that a LEFT SHIFT is Present. International normalized rat io (INR) calculationOrdered By: Marcelino Gracia on 09-22-2024 INR Coag (Bld) [Relative time] 2.3 {INR} [facility] Lymphocytes Auto (Unsp spec) [#/Vol]Ordered By: Marcelino Gracia on 09-22-2024 Lymphocytes (Bld) [#/Vol] 1.06 10*3/uL 0.83-4.51 [facility] Lymphocytes/100 WBC Auto (Un sp spec)Ordered By: Marcelino Gracia on 09-22-2024 Lymphocytes/100 WBC (Bld) 7.4 % Low 19-41 [facility] MCV (mean corpuscular volume ) determinationOrdered By: Marcelino Gracia on 09-22-2024 MCV (RBC) [Entitic vol] 92.9 fL 80-94 [facility] Mean corpuscular hemoglobin (MCH) determinationOrdered By: Marcelino Gracia on 09-22-2024 MCH (RBC) [Entitic mass] 31.0 pg 27.0-32.0 [facility] Mean corpuscular hemoglobin concentration (MCHC) determinationOrdered By: Marcelino Gracia on 09-22-2024 MCHC (RBC) [Mass/Vol] 33.3 g/dL 32-36 [facility] Mean platelet volume determi nationOrdered By: Marcelino Gracia on 09-22-2024 Platelet mean volume (Bld) [Entitic vol] 11.0 fL 6.2-12.0 [facility] Monocyte percentageOrdered B y: Marcelino Gracia on 09-22-2024 Monocytes/100 WBC (Bld) 4.9 % 0-10 [facility] Neutrophil percentageOrdered By: Marcelino Gracia on 09-22-2024 Neutrophils/100 WBC (Bld) 87.0 % High 47-70 [facility] Nucleated red blood cell per centageOrdered By: Marcelino Gracia on 09-22-2024 Nucleated RBC/100 WBC (Bld) [Ratio] 0 % 0-5 [facility] Phosphoruson 09-22-2024 Phosphate [Mass/Vol] 2.1 mg/dL Low 2.7-4.5 [facility] Comment on above: Performed By: #### L 503.7505, L501.9100, L503.0106, L501.9985, L501.9520, L505.5000 #### [facility] [address] [place], [address] Platelet countOrdered By: Wai Gracia on 09-22-2024 Platelets (Bld) [#/Vol] 250 10*3/uL 150-450 [facility] Potassium (Unsp spec) [Mass/ Vol]Ordered By: Marcelino Gracia on 09-22-2024 Potassium [Moles/Vol] 4.0 mmol/L 3.3-5.1 [facility] Prothrombin Time w/INRon INR Coag (PPP) [Relative time] 2.3 {INR} Normal [facility] Comment on above: Performed By: #### L 300.3900, L501.4021, L503.6005, L500.4050, L300.4310, M200.1000, L100.0100 #### [facility] [address] [place], [place], [id number] PT Coag (PPP) [Time] 25.7 s High 11.7-14.9 [facility] Comment on above: Performed By: #### L 300.3900, L501.4021, L503.6005, L500.4050, L300.4310, M200.1000, L100.0100 #### [facility] [address] [place], [address] Prothrombin timeOrdered By: Marcelino Gracia on 09-22-2024 PT Coag (PPP) [Time] 25.7 s High 11.7-14.9 [facility] RBC Auto (Bld) [#/Vol]Ordere d By: Marcelino Gracia on 09-22-2024 RBC (Bld) [#/Vol] 3.78 10*6/uL Low 4.6-6.[address] [facility] Serum creatinine measurement (mass/volume)Ordered By: Marcelino Gracia on 09-22-2024 Creatinine [Mass/Vol] 0.79 mg/dL 0.70-1.20 [facility] Serum glucose measurement (m ass/volume)Ordered By: Marcelino Gracia on 09-22-2024 Glucose [Mass/Vol] 234 mg/dL High 70-99 [facility] Serum or plasma calcium camryn urement (mass/volume)Ordered By: Marcelino Gracia on 09-22-2024 Calcium [Mass/Vol] 8.8 mg/dL 7.6-11.0 [facility] Serum or plasma urea nitroge n measurement (mass/volume)Ordered By: Marcelino Gracia on 09-22-2024 Urea nitrogen [Mass/Vol] 25 mg/dL High 4-19 [facility] Serum phosphorus measurement Ordered By: Zeferino Dwyer on 09-22-2024 Phosphorus Level 2.1 mg/dL Low 2.7-4.5 [facility] Sodium levelOrdered By: Marcelino Gracia on 09-22-2024 Sodium [Moles/Vol] 140 mmol/L 133-145 [facility] White blood cell (WBC) count Ordered By: Marcelino Gracia on 09-22-2024 WBC (Bld) [#/Vol] 14.4 10*3/uL High 4.4-11.[address] [facility] Bedside Glucoseon 09-21-2024 FINGERSTICK GLU 226 mg/dL High 74-106 [facility] Comment on above: Result Comment: ANDREW GEMENT OF PATIENT CARE PER NURSING PROTOCOL Performed By: #### L 503.7505, L501.9100, L503.0106, L501.9985, L501.9520, L505.5000 #### [facility] [address] [facility], [address] FINGERSTICK GLU 253 mg/dL High 74-106 [facility] Comment on above: Result Comment: ANDREW GEMENT OF PATIENT CARE PER NURSING PROTOCOL Performed By: #### L 503.7505, L501.9100, L503.0106, L501.9985, L501.9520, L505.5000 #### [facility] [address] [place], [address] FINGERSTICK GLU 218 mg/dL High 74-106 [facility] Comment on above: Result Comment: ANDREW GEMENT OF PATIENT CARE PER NURSING PROTOCOL Performed By: #### L 503.7505, L501.9100, L503.0106, L501.9985, L501.9520, L505.5000 #### [facility] [address] [place], [address] FINGERSTICK GLU 220 mg/dL High 74-106 [facility] Comment on above: Result Comment: ANDREW ALFONSO OF PATIENT CARE PER NURSING PROTOCOL Performed By: #### L 503.7505, L501.9100, L503.0106, L501.9985, L501.9520, L505.5000 #### [facility] [address] [place], [address] Bilirubin, totalOrdered By: Zeferino Dwyer on 09-21-2024 Bilirubin [Mass/Vol] 0.59 mg/dL 0.00-1.30 [facility] CBC W/Diff, Automatedon 08-28 SMEAR COMMENT SCANNED Normal [facility] Comment on above: Result Comment: LEFT SHIFT: BANDS PRESENT 2+ Performed By: #### L 503.7505, L501.9100, L503.0106, L501.9985, L501.9520, L505.5000 #### [facility] [address] [place], [address] CT Chest, Abd, Pel w/Contras ton 09-21-2024 CT Chest, Abd, Pel w/Contrast [facility] [address] [place] [address] CT Chest, Abd, Pel w/Contrast MR#: [id number] Acct: [id number] Name: HTATIE VALDERRAMA Misty Rep #: [id number] : 1945 M 79 From: Yaw noriega MD PCP: Dr. Neymar Xavier MD Status: ADM IN Study: CT Chest, Abd, Pel w/Contrast Date of Exam: Exam# [id number] Ordering Dr: Zeferino Estrada DO PROCEDURE: CT [...] Colonic diverticulosis without diverticulitis. Reading Location: [facility] CC: Dr. Zeferino Estrada DO; Dr. Neymar Xavier MD French Binding Folder: Signed Normal [facility] Calculated very low density lipoprotein (VLDL) cholesterol measurementOrdered By: Zeferino Dwyer on 09-21-2024 VLDL Cholesterol 20 mg/dL 5-40 [facility] Comprehensive Metabolic Prof ilon 09-21-2024 Albumin [Mass/Vol] 3.6 g/dL Normal 3.4-4.8 [facility] Comment on above: Performed By: #### L 503.7505, L501.9100, L503.0106, L501.9985, L501.9520, L505.5000 #### [facility] [address] [place], [address] Albumin/Globulin [Mass ratio] 1.1 {ratio} Normal 0.9-2.4 [facility] Comment on above: Performed By: #### L 503.7505, L501.9100, L503.0106, L501.9985, L501.9520, L505.5000 #### [facility] [address] [place], [address] ALK PHOS 54 U/L Normal 40-129 [facility] Comment on above: Performed By: #### L 503.7505, L501.9100, L503.0106, L501.9985, L501.9520, L505.5000 #### [facility] [address] [place], [address] ALT [Catalytic activity/Vol] 17 U/L Normal <=46 [facility] Comment on above: Performed By: #### L 503.7505, L501.9100, L503.0106, L501.9985, L501.9520, L505.5000 #### [facility] [address] [place], [address] AST [Catalytic activity/Vol] 24 U/L Normal <=37 [facility] Comment on above: Performed By: #### L 503.7505, L501.9100, L503.0106, L501.9985, L501.9520, L505.5000 #### [facility] [address] [place], [address] Bilirubin [Mass/Vol] 0.59 mg/dL Normal 0.00-1.30 [facility] Comment on above: Performed By: #### L 503.7505, L501.9100, L503.0106, L501.9985, L501.9520, L505.5000 #### [facility] [address] [place], [address] BUN/CRE 28.5 RATIO High 10-20 [facility] Comment on above: Performed By: #### L 503.7505, L501.9100, L503.0106, L501.9985, L501.9520, L505.5000 #### [facility] [address] [place], [address] Calcium [Mass/Vol] 7.1 mg/dL Low 7.6-11.0 [facility] Comment on above: Performed By: #### L 503.7505, L501.9100, L503.0106, L501.9985, L501.9520, L505.5000 #### [facility] [address] [place], [address] Chloride [Moles/Vol] 104 mmol/L Normal 98-108 [facility] Comment on above: Performed By: #### L 503.7505, L501.9100, L503.0106, L501.9985, L501.9520, L505.5000 #### [facility] [address] [place], [address] CO2 [Moles/Vol] 21.5 mmol/L Normal 21.0-32.0 [facility] Comment on above: Performed By: #### L 503.7505, L501.9100, L503.0106, L501.9985, L501.9520, L505.5000 #### [facility] [address] [place], [address] Creatinine [Mass/Vol] 0.86 mg/dL Normal 0.70-1.20 [facility] Comment on above: Performed By: #### L 503.7505, L501.9100, L503.0106, L501.9985, L501.9520, L505.5000 #### [facility] [address] [place], [address] ECRCL 86.23 ml/min Normal 50-250 [facility] Comment on above: Performed By: #### L 503.7505, L501.9100, L503.0106, L501.9985, L501.9520, L505.5000 #### [facility] [address] [place], [address] GAP 12 Normal 5-15 [facility] Comment on above: Performed By: #### L 503.7505, L501.9100, L503.0106, L501.9985, L501.9520, L505.5000 #### [facility] [address] [place], [address] GFR/1.73 sq M.predicted among non-blacks MDRD (S/P/Bld) [Vol rate/Area] 89 mL/min/{1.73_m2} Normal >60 [facility] Comment on above: Result Comment: mL/m in/1.73m2 CKD-EPI Creatinine Equation (2020) Performed By: #### L 503.7505, L501.9100, L503.0106, L501.9985, L501.9520, L505.5000 #### [facility] [address] [place], [address] Globulin (S) [Mass/Vol] 3.2 g/dL Normal 2.2-4.2 [facility] Comment on above: Performed By: #### L 503.7505, L501.9100, L503.0106, L501.9985, L501.9520, L505.5000 #### [facility] [address] [place], [address] Glucose [Mass/Vol] 260 mg/dL High 70-99 [facility] Comment on above: Performed By: #### L 503.7505, L501.9100, L503.0106, L501.9985, L501.9520, L505.5000 #### [facility] [address] [place], [address] Potassium [Moles/Vol] 4.1 mmol/L Normal 3.3-5.1 [facility] Comment on above: Performed By: #### L 503.7505, L501.9100, L503.0106, L501.9985, L501.9520, L505.5000 #### [facility] [address] [place], [address] Sodium [Moles/Vol] 137 mmol/L Normal 133-145 [facility] Comment on above: Performed By: #### L 503.7505, L501.9100, L503.0106, L501.9985, L501.9520, L505.5000 #### [facility] [address] [place], [address] T PROT 6.7 g/dL Normal 5.9-8.4 [facility] Comment on above: Performed By: #### L 503.7505, L501.9100, L503.0106, L501.9985, L501.9520, L505.5000 #### [facility] [address] [place], [address] Urea nitrogen [Mass/Vol] 25 mg/dL High 4-19 [facility] Comment on above: Performed By: #### L 503.7505, L501.9100, L503.0106, L501.9985, L501.9520, L505.5000 #### [facility] [address] [place], [address] Consultation - Intensiviston 09-21-2024 Consultation - Acquisition Associate [facility] Medical Records Department [address] [place] [address] Consultation - Acquisition Associate 09/21/24 0753 MR#: [id number] Acct: [id number] Name: HATTIE VALDERRAMA Rep #: [id number] : 1945 79 From: Garrett Ambrocio DO [...] this morning) This note was generated with [employer] ([employer])ation software. It may contain incorrect words, spelling, [...] oxygen at 3 L/min via nasal cannula. [facility], [facility] Medical History Kidney stones Diabetes Atrial fibrillation [...] were review (more content not included)... Normal [facility] Electrocardiogram reportOrde red By: Keon Vega on 09-21-2024 EKG study [facility] Cardiovascular Services [address] [place] [address] 12 Lead EKG 09/20/24 1742 MR#: [id number] Acct: [id number] Name: HATTIE VALDERRAMA Rep #:[id number] : 1945 79 From: Keon Vega MD [...] Abnormal ECG Confirmed by KEON VEGA MD ([id number]), newspaper photo editor WENDY PACHECO ([id number]) on 09/21/2024 8:30:42 AM Referred By: Confirmed By: KEON VEGA MD 09/21/24 0830 Date _ Keon Vega MD CC: Dr. Stone Leong DO; Dr. Marcelino Garcia DO; Dr. Neymar Xavier MD ~ Signed [facility] Other Phone: LDL calc ser/plasOrdered By: Zeferino Dwyer on 09-21-2024 LDL Cholesterol, Calculated 25 mg/dL [facility] Comment on above: Ioizfftuuo=479-860 m g/dL & Higher Molc=671 mg/dL or greater Laboratory - Chemistry and C hemistry - challengeOrdered By: Zeferino Dwyer on 09-21-2024 AST [Catalytic activity/Vol] 24 U/L <38 [facility] Lactic Acidon 09-21-2024 Lactate [Moles/Vol] 1.6 mmol/L Normal 0.0-2.[address] [facility] Comment on above: Order Comment: Y Performed By: #### L 300.3900, L501.4021, L503.6005, L500.4050, L300.4310, M200.1000, L100.0100 #### [facility] [address] [place], [place], [id number] Lactic acid measurementOrder ed By: Zeferino Dwyer on 09-21-2024 Lactate [Moles/Vol] 1.6 mmol/L 0.0-2.[address] [facility] Lipid Profileon 09-21-2024 CHOL:HDL 2.18 Normal [facility] Comment on above: Performed By: #### L 503.7505, L501.9100, L503.0106, L501.9985, L501.9520, L505.5000 #### [facility] [address] [place], [place], [id number] Cholesterol [Mass/Vol] 83 mg/dL Normal <=200 [facility] Comment on above: Result Comment: Chol esterol level, Desirable <200 mg/dL Borderline high cholesterol 200-239 mg/dL High cholesterol >=240 mg/dL Recommendations of the NCEP Adult Treatment Panel for the following risk-cutoff thresholds for the [place] population. Performed By: #### L 503.7505, L501.9100, L503.0106, L501.9985, L501.9520, L505.5000 #### [facility] [address] [place], [place], [id number] (254) Cholesterol in HDL [Mass/Vol] 38 mg/dL Low [facility] Comment on above: Result Comment: Ofelia onal Cholesterol Education Program (NCEP) guidelines: <40 mg/dL: Low HDL-cholesterol (major risk factor for CHD) >= 60 mg/dL: High HDL-cholesterol (negative risk factor for CHD) HDL-cholesterol is affected by a number of factors, e.g. smoking, exercise, hormones, sex and age. Performed By: #### L 503.7505, L501.9100, L503.0106, L501.9985, L501.9520, L505.5000 #### [facility] [address] [place], [place], [phone] ([phone]) Cholesterol in LDL [Mass/Vol] 25 mg/dL Normal [facility] Comment on above: Result Comment: Bord vflkxl=229-323 mg/dL Higher Ogsh=945 mg/dL or greater Performed By: #### L 503.7505, L501.9100, L503.0106, L501.9985, L501.9520, L505.5000 #### [facility] [address] [place], [place], [phone] ([phone] Cholesterol in VLDL [Mass/Vol] 20 mg/dL Normal 5-40 [facility] Comment on above: Performed By: #### L 503.7505, L501.9100, L503.0106, L501.9985, L501.9520, L505.5000 #### [facility] [address] [place], [address] Triglyceride [Mass/Vol] 102 mg/dL Normal [facility] Comment on above: Result Comment: The drugs N-Acetylcysteine and Metamizole may falsely depress this assay. Normal range: <150 mg/dL Borderline High: 150-199 mg/dL High: 200-499 mg/dL Very High: >500 mg/dL Performed By: #### L 503.7505, L501.9100, L503.0106, L501.9985, L501.9520, L505.5000 #### [facility] [address] [place], [place], [id number] Manual differential comment Kevin (Bld) [Interp]Ordered By: Zeferino Dwyer on 09-21-2024 Differential Comment SCANNED [facility] Comment on above: LEFT SHIFT: BANDS MT ESENT 2+ PSA, total screeningOrdered By: Zeferino Dwyer on 09-21-2024 Prostate Specific Antigen Screen 4.91 ng/mL High 0.02-4.00 [facility] Comment on above: This test was perfor med using the [employer] tPSA method. Measured values of a patient sample can vary depending on the testing procedure used. PSA values determined on patient samples by different testing procedures cannot be used interchangeably. If there is a change in PSA assays while monitoring therapy, sequential testing should be performed to confirm baseline values. PSA,Total - Annual Screenon 09-21-2024 PSA,TOT SCREEN 4.91 ng/mL High 0.02-4.00 [facility] Comment on above: Result Comment: This test was performed using the [employer] tPSA method. Measured values of a patient??sample can vary depending on the testing procedure used. PSA values determined on patient samples by different testing procedures cannot be used interchangeably. If there is a change in PSA assays while monitoring therapy, sequential testing should be performed to confirm baseline values. Performed By: #### L 503.7505, L501.9100, L503.0106, L501.9985, L501.9520, L505.5000 #### [facility] [address] [place], [place], [id number] Phosphoruson 09-21-2024 Phosphate [Mass/Vol] 2.0 mg/dL Low 2.7-4.5 [facility] Comment on above: Performed By: #### L 503.7505, L501.9100, L503.0106, L501.9985, L501.9520, L505.5000 #### [facility] [address] [place], [address] Prothrombin Time w/INRon INR Coag (PPP) [Relative time] 2.5 {INR} Normal [facility] Comment on above: Performed By: #### L 503.7505, L501.9100, L503.0106, L501.9985, L501.9520, L505.5000 #### [facility] [address] [place], [place], [address] PT Coag (PPP) [Time] 27.1 s High 11.7-14.9 [facility] Comment on above: Performed By: #### L 503.7505, L501.9100, L503.0106, L501.9985, L501.9520, L505.5000 #### [facility] [address] [place], [place], [id number] Screening total cholesterol/ high density lipoprotein (HDL) cholesterol ratioOrdered By: Zeferino Dwyer on 09-21-2024 Cholesterol.total/Chol esterol in HDL [Mass ratio] 2.18 {ratio} [facility] Serum globulin measurementOr dered By: Zeferino Dwyer on 09-21-2024 Globulin (S) [Mass/Vol] 3.2 g/dL 2.2-4.2 [facility] Serum or plasma alanine moreno otransferase (ALT) measurementOrdered By: Zeferino Dwyer on 09-21-2024 ALT [Catalytic activity/Vol] 17 U/L <47 [facility] Serum or plasma albumin camryn urement (mass/volume)Ordered By: Zeferino Dwyer on 09-21-2024 Albumin [Mass/Vol] 3.6 g/dL 3.4-4.8 [facility] Serum or plasma albumin/glob ulin mass ratioOrdered By: Zeferino Dwyer on 09-21-2024 Albumin/Globulin [Mass ratio] 1.1 {ratio} 0.9-2.4 [facility] Serum or plasma alkaline drew sphatase measurementOrdered By: Zeferino Dwyer on 09-21-2024 ALP [Catalytic activity/Vol] 54 U/L 40-129 [facility] Serum or plasma cholesterol in HDL measurement (mass/volume)Ordered By: Zeferino Dwyer on 09-21-2024 Cholesterol in HDL [Mass/Vol] 38 mg/dL Low >40 [facility] Comment on above: National Cholesterol Education Program (NCEP) guidelines:<40 mg/dL: Low HDL-cholesterol (major risk factor for CHD)>= 60 mg/dL: High HDL-cholesterol (negative risk factor for CHD)HDL-cholesterol is affected by a number of factors, e.g. smoking, exercise, hormones, sex and age. Serum or plasma cholesterol measurement (mass/volume)Ordered By: Zeferino Dwyer on 09-21-2024 Cholesterol [Mass/Vol] 83 mg/dL <201 [facility] Comment on above: Cholesterol level, D esirable <200 mg/dLBorderline high cholesterol 200-239 mg/dLHigh cholesterol >=240 mg/dLRecommendations of the NCEP Adult Treatment Panel for the following risk-cutoff thresholds for the [place] population. Total proteinOrdered By: Gerhard Dwyer on 09-21-2024 Protein [Mass/Vol] 6.7 g/dL 5.9-8.4 [facility] Triglycerides measurementOrd ered By: Zeferino Dwyer on 09-21-2024 Triglyceride [Mass/Vol] 102 mg/dL <199 [facility] Comment on above: The drugs N-Acetylcy steine and Metamizole may falsely depress this assay. Normal range: <150 mg/dLBorderline High: 150-199 mg/dLHigh: 200-499 mg/dLVery High: >500 mg/dL Urine Cultureon 09-21-2024 URC Culture exhibits no growth. Normal [facility] Comment on above: Performed By: #### L 503.7505, L501.9100, L503.0106, L501.9985, L501.9520, L505.5000 #### [facility] [address] [facility] [place], [address] 12 Lead EKGon 09-20-2024 12 Lead EKG [facility] Cardi[facility] Services [address] [place] [address] 12 Lead EKG 09/20/24 1742 MR#: [id number] Acct: [id number] Name: HATTIE VALDERRAMA Rep #: [id number] : 1945 79 From: Keon Vega MD [...] Abnormal ECG Confirmed by RODGER RUIZ, KEON ([id number]), newspaper photo editor WENDY PACHECO ([id number]) on 09/21/2024 8:30:42 AM Referred By: Confirmed By: KEON VEGA MD 09/21/2430 Date Keon Vega MD CC: Dr. Stone Leong DO; Dr. Marcelino Gracia DO; Dr. Neymar Xavier MD Signed Normal [facility] Absolute neutrophil countOrd ered By: Stone Leong on 09-20-2024 Neutrophils (Bld) [#/Vol] 11.7 10*3/uL High 2.0-7.7 [facility] Alcohol, Blood (Medical)-Ser umon 09-20-2024 SERUM ETOH < 10.1 Normal <=10.0 [facility] Comment on above: Result Comment: This test is for medical purposes only. The legal definition of intoxication varies according to local law. Performed By: #### L 503.7505, L501.9100, L503.0106, L501.9985, L501.9520, L505.5000 #### [facility] [place], [address] Amphetamines Screen method > 1000 ng/mL Ql (U)Ordered By: Zeferino Dwyer on 09-20-2024 Amphetamines Ql (U) Negative <1000 ng/mL [facility] Urine Barbiturates Screen Negative < 200 ng/mL [facility] Anion gap in Serum or Plasma Ordered By: Stone Leong on 09-20-2024 Anion gap [Moles/Vol] 14 mmol/L 5-15 [facility] Arterial patency Wrist arter y --pre arterial punctureOrdered By: Zeferino Dwyer on 09-20-2024 Kristen Test Positive [facility] BUN/creatinine ratioOrdered By: Stone Leong on 09-20-2024 Urea nitrogen/Creatinine [Mass ratio] 34.2 mg/mg High 10-20 [facility] Base excess Calc (BldV) [Mol es/Vol]Ordered By: Zeferino Dwyer on 09-20-2024 Blood Gas Base Excess -4 mmol/L Low -2-2 [facility] Base excess Calc (BldV) [Mol es/Vol]Ordered By: Stone Leong on 09-20-2024 Venous Blood Base Excess -1 mmol/L -1.0-3.5 [facility] Basophil percentageOrdered B y: Stone Leong on 09-20-2024 Basophils/100 WBC (Bld) 0.4 % 0-1 [facility] Bedside Glucoseon 09-20-2024 FINGERSTICK GLU 238 mg/dL High 74-106 [facility] Comment on above: Result Comment: ANDREW ALFONSO OF PATIENT CARE PER NURSING PROTOCOL Performed By: #### L 501.080 #### [facility] [address] [place] [address]. [place], [place], [id number] Bilirubin Test strip Ql (U)O rdered By: Stoen Leong on 09-20-2024 Bilirubin Ql (U) Negative Negative [facility] Bilirubin, totalOrdered By: Stone Leong on 09-20-2024 Bilirubin [Mass/Vol] 0.79 mg/dL 0.00-1.30 [facility] Blood Gases by CPSon 025 KRISTEN TEST Positive Normal [facility] Comment on above: Performed By: #### L 503.7505, L501.9100, L503.0106, L501.9985, L501.9520, L505.5000 #### [facility] [address] [place], [address] Base excess Calc (Bld) [Moles/Vol] -4 mmol/L Low -2 to +2 [facility] Comment on above: Performed By: #### L 503.7505, L501.9100, L503.0106, L501.9985, L501.9520, L505.5000 #### [facility] [address] [place], [address] Blood Gas Type ART Normal [facility] Comment on above: Performed By: #### L 503.7505, L501.9100, L503.0106, L501.9985, L501.9520, L505.5000 #### [facility] [address] [place], [address] CO2 [Moles/Vol] 22 mmol/L Normal [facility] Comment on above: Performed By: #### L 503.7505, L501.9100, L503.0106, L501.9985, L501.9520, L505.5000 #### [facility] [address], [address] FI02 29.0 Normal [facility] Comment on above: Performed By: #### L 503.7505, L501.9100, L503.0106, L501.9985, L501.9520, L505.5000 #### [facility] [address] [place], [address] HCO3 (Bld) [Moles/Vol] 20.5 mmol/L Low 22-26 [facility] Comment on above: Performed By: #### L 503.7505, L501.9100, L503.0106, L501.9985, L501.9520, L505.5000 #### [facility] [address] [place], [address] Mode Not entered Normal [facility] Comment on above: Performed By: #### L 503.7505, L501.9100, L503.0106, L501.9985, L501.9520, L505.5000 #### [facility] [address] [place], [address] O2 Delivery Dev HFOV Normal [facility] Comment on above: Performed By: #### L 503.7505, L501.9100, L503.0106, L501.9985, L501.9520, L505.5000 #### [facility] [address] [place], [address] pCO2 32.4 mmHg Low 35-45 [facility] Comment on above: Performed By: #### L 503.7505, L501.9100, L503.0106, L501.9985, L501.9520, L505.5000 #### [facility] [address] [place], [address] pH (Bld) 7.41 [pH] Normal 7.35-7.45 [facility] Comment on above: Performed By: #### L 503.7505, L501.9100, L503.0106, L501.9985, L501.9520, L505.5000 #### [facility] [address] [place], [address] PO2 74 mmHG Low 75-100 [facility] Comment on above: Performed By: #### L 503.7505, L501.9100, L503.0106, L501.9985, L501.9520, L505.5000 #### [facility] [address] [place], [address] SITE L Radial Normal [facility] Comment on above: Performed By: #### L 503.7505, L501.9100, L503.0106, L501.9985, L501.9520, L505.5000 #### [facility] [address] [place], [address] SO2 95 Normal 95-99 [facility] Comment on above: Performed By: #### L 503.7505, L501.9100, L503.0106, L501.9985, L501.9520, L505.5000 #### [facility] [address] [place], [address] Blood bicarbonate measuremen tOrdered By: Zeferino Dwyer on 09-20-2024 Blood Gas Bicarbonate Actual 20.5 mmol/L Low 22-26 [facility] CBC W/Diff, Automatedon - PLT EST A Normal ADEQ [facility] Comment on above: Performed By: #### L 300.3900, L501.4021, L503.6005, L500.4050, L300.4310, M200.1000, L100.0100 #### [facility] [address] [place], [place], [id number] CO2 (BldV) [Moles/Vol]Ordere d By: Stone Leong on 09-20-2024 CO2 [Moles/Vol] 26 mmol/L 23-33 [facility] CO2 (BldV) [Partial pressure ]Ordered By: Stone Leong on 09-20-2024 Bed Mix Venous Bld PCO2 at Pat Temp 40.8 mmHg Low 41-51 [facility] Carbon dioxide, total [Moles /volume] in Central venous bloodOrdered By: Stone Leong on 09-20-2024 CO2 [Moles/Vol] 21.5 mmol/L 21.0-32.0 [facility] Chest 1 View (Portable)on Chest 1 View (Portable) [facility] Imaging Services [address] [place] [address] Chest 1 View (Portable) MR#: [id number] Acct: [id number] Name: HATTIE VALDERRAMA N Rep #: [id number] : 1945 M 79 From: Tal Deleon i, MD PCP: Care Physician,No Primary Status: PRE ER Study: Chest 1 View (Portable) Date of Exam: 09/20/24 Exam# [id number] Ordering Dr: Stone Leong DO PROCEDURE: CHEST [...] out underlying mass. No pneumothorax. Reading Location: [id number] CC: Dr. Stone Leong DO; No Primary Care Physician French Binding Folder: Signed Normal [facility] Chest without Contraston Chest without Contrast [facility] Imaging Services [address] [place] [address] Chest without Contrast MR#: [id number] Acct: [id number] Name: HATTIE VALDERRAMA N Rep #: [id number] : 1945 M 79 From: aTl Deleon i, MD PCP: Dr. Neymar Xavier MD Status: ADM IN Study: Chest without Contrast Date of Exam: 09/20/24 Exam# [id number] Ordering Dr: Stone Leong DO PROCEDURE: CHEST [...] Calcified lymph nodes within the bilateral hilum, uafj-dajthbn-qctw-right may suggest history of granulomatous disease. 2.4 [...] suggested. Other findings as above. Reading Location: [id number]-[id number] CC: Dr. Stone Leong, DO; Dr. Neymar Xavier MD French Binding Folder: Signed Normal [facility] Chloride assayOrdered By: Suhas Leong on 09-20-2024 Chloride [Moles/Vol] 98 mmol/L 98-108 [facility] Comprehensive Metabolic Prof ilon 09-20-2024 Albumin [Mass/Vol] 4.0 g/dL Normal 3.4-4.8 [facility] Comment on above: Performed By: #### L 300.3900, L501.4021, L503.6005, L500.4050, L300.4310, M200.1000, L100.0100 #### [facility] [address] [place], [address] Albumin/Globulin [Mass ratio] 1.1 {ratio} Normal 0.9-2.4 [facility] Comment on above: Performed By: #### L 300.3900, L501.4021, L503.6005, L500.4050, L300.4310, M200.1000, L100.0100 #### [facility] [address] [place], [address] ALK PHOS 62 U/L Normal 40-129 [facility] Comment on above: Performed By: #### L 300.3900, L501.4021, L503.6005, L500.4050, L300.4310, M200.1000, L100.0100 #### [facility] [address] [place], [address] ALT [Catalytic activity/Vol] 23 U/L Normal <=46 [facility] Comment on above: Performed By: #### L 300.3900, L501.4021, L503.6005, L500.4050, L300.4310, M200.1000, L100.0100 #### [facility] [address] [place], [address] AST [Catalytic activity/Vol] 36 U/L Normal <=37 [facility] Comment on above: Performed By: #### L 300.3900, L501.4021, L503.6005, L500.4050, L300.4310, M200.1000, L100.0100 #### [facility] [address] [place], [address] Bilirubin [Mass/Vol] 0.79 mg/dL Normal 0.00-1.30 [facility] Comment on above: Performed By: #### L 300.3900, L501.4021, L503.6005, L500.4050, L300.4310, M200.1000, L100.0100 #### [facility] [address] [place], [address] BUN/CRE 34.2 RATIO High 10-20 [facility] Comment on above: Performed By: #### L 300.3900, L501.4021, L503.6005, L500.4050, L300.4310, M200.1000, L100.0100 #### [facility] [address] [place], [address] Calcium [Mass/Vol] 9.7 mg/dL Normal 7.6-11.0 [facility] Comment on above: Performed By: #### L 300.3900, L501.4021, L503.6005, L500.4050, L300.4310, M200.1000, L100.0100 #### [facility] [address] [place], [address] Chloride [Moles/Vol] 98 mmol/L Normal 98-108 [facility] Comment on above: Performed By: #### L 300.3900, L501.4021, L503.6005, L500.4050, L300.4310, M200.1000, L100.0100 #### [facility] [address] [place], [address] CO2 [Moles/Vol] 21.5 mmol/L Normal 21.0-32.0 [facility] Comment on above: Performed By: #### L 300.3900, L501.4021, L503.6005, L500.4050, L300.4310, M200.1000, L100.0100 #### [facility] [address] [place], [address] Creatinine [Mass/Vol] 1.19 mg/dL Normal 0.70-1.20 [facility] Comment on above: Performed By: #### L 300.3900, L501.4021, L503.6005, L500.4050, L300.4310, M200.1000, L100.0100 #### [facility] [address] [place], [address] ECRCL 62.48 ml/min Normal 50-250 [facility] Comment on above: Performed By: #### L 300.3900, L501.4021, L503.6005, L500.4050, L300.4310, M200.1000, L100.0100 #### [facility] [address] [place], [address] GAP 14 Normal 5-15 [facility] Comment on above: Performed By: #### L 300.3900, L501.4021, L503.6005, L500.4050, L300.4310, M200.1000, L100.0100 #### [facility] [address] [place], [address] GFR/1.73 sq M.predicted among non-blacks MDRD (S/P/Bld) [Vol rate/Area] 63 mL/min/{1.73_m2} Normal >60 [facility] Comment on above: Result Comment: mL/m in/1.73m2 CKD-EPI Creatinine Equation (2020) Performed By: #### L 300.3900, L501.4021, L503.6005, L500.4050, L300.4310, M200.1000, L100.0100 #### [facility] [address] [place], [address] Globulin (S) [Mass/Vol] 3.8 g/dL Normal 2.2-4.2 [facility] Comment on above: Performed By: #### L 300.3900, L501.4021, L503.6005, L500.4050, L300.4310, M200.1000, L100.0100 #### [facility] [address] [place], [address] Glucose [Mass/Vol] 248 mg/dL High 70-99 [facility] Comment on above: Performed By: #### L 300.3900, L501.4021, L503.6005, L500.4050, L300.4310, M200.1000, L100.0100 #### [facility] [address] [place], [address] Potassium [Moles/Vol] 4.7 mmol/L Normal 3.3-5.1 [facility] Comment on above: Performed By: #### L 300.3900, L501.4021, L503.6005, L500.4050, L300.4310, M200.1000, L100.0100 #### [facility] [address] [place], [address] Sodium [Moles/Vol] 133 mmol/L Normal 133-145 [facility] Comment on above: Performed By: #### L 300.3900, L501.4021, L503.6005, L500.4050, L300.4310, M200.1000, L100.0100 #### [facility] [address] [place], [address] T PROT 7.7 g/dL Normal 5.9-8.4 [facility] Comment on above: Performed By: #### L 300.3900, L501.4021, L503.6005, L500.4050, L300.4310, M200.1000, L100.0100 #### [facility] [address] [place], [address] Urea nitrogen [Mass/Vol] 41 mg/dL High 4-19 [facility] Comment on above: Performed By: #### L 300.3900, L501.4021, L503.6005, L500.4050, L300.4310, M200.1000, L100.0100 #### [facility] Laboratory [address] [place], [address] Determination of fraction of inspired oxygenOrdered By: Zeferino Dwyer on 09-20-2024 Blood Gas Oxygen Percent 29.0 [facility] Emergency Department Summary on 09-20-2024 Emergency Department Summary [facility] Medical Records Department [address] [place] [address] Emergency Department Summary 09/20/24 MR#: [id number] Acct: [id number] Name: HATTIE VALDERRAMA Misty Rep #: [id number] : 1945 79 From: Stone Leong DO [...] intact Psych: Cooperative, appropriate mood and affect [facility] Medical History Kidney stones Diabetes Atrial fibrillation [...] 102 75 (more content not included)... Normal [facility] Eosinophil percentageOrdered By: Stone Leong on 09-20-2024 Eosinophils/100 WBC (Bld) 0.4 % 0-5 [facility] Epithelial cells.squamous LM Ql (Urine sed)Ordered By: Stone Leong on 09-20-2024 Epithelial cells.squamous LM.HPF (Urine sed) [#/Area] 0 /[HPF] 0-5 [facility] Erythrocyte distribution wid th ratioOrdered By: Stone Leong on 09-20-2024 Erythrocyte distribution width (RBC) [Ratio] 14.4 % 11.6-14.6 [facility] Erythrocyte distribution wid th standard deviationOrdered By: Stone Marin on 09-20-2024 Erythrocyte distribution width (RBC) [Entitic vol] 49.1 fL High 35.1-43.9 [facility] Estimation of creatinine jesus aranceOrdered By: Stone Leong on 09-20-2024 Estimated Creatinine Clearance Calc 62.48 ml/min 50-250 [facility] Ethanol [Mass/Vol]Ordered By : Zeferino Dwyer on 09-20-2024 Ethyl Alcohol Level < 10.1 mg/dL <10.1 [facility] Comment on above: This test is for med ical purposes only. The legal definition of intoxication varies according to local law. FOLATES,SERUM (FOLIC ACID)on 09-20-2024 FOLATES,SERUM 17.60 ng/mL Normal 4.60-34.80 [facility] Comment on above: Performed By: #### L 503.7505, L501.9100, L503.0106, L501.9985, L501.9520, L505.5000 #### [facility] [address] [place], [place], [id number] Folate [Mass/Vol]Ordered By: Zeferino Dwyer on 09-20-2024 Serum Folate 17.60 ng/mL 4.60-34.80 [facility] GFR/1.73 sq M.predicted mayda g non-blacks MDRD (S/P/Bld) [Vol rate/Area]Ordered By: Stone Leong on 09-20-2024 Estimated GFR (MDRD) Non-Af Amer 63 >60 [facility] Comment on above: mL/min/1.73m2 CKD-EP I Creatinine Equation (2020) Glucose Ql (U)Ordered By: Suhas Leong on 09-20-2024 Glucose (U) [Mass/Vol] 250 mg/dL High Normal [facility] H AND P Exam - Hospitaliston 09-20-2024 H&P Exam - Hospitalist [facility] Medical Records Department [address] [place] [address] H P Exam - Hospitalist 09/20/241942 MR#: [id number] Acct: [id number] Name: HATTIE VALDERRAMA Misty Rep #: [id number] : 1945 79 From: Zeferino Estrada DO PCP: Dr. Neymar Xavier MD Status:ADM IN Location: ICU ICU02-1 [facility] - General General Date of Admission: 09/20/24 [...] chronic low back pain who presents to [facility] ER complaining of shortness of breath, cough [...] is expected to extend beyond 2 midnights. [facility] Medical History Kidney stones Diabetes Atrial fibrillation [...] Blood Pressure (more content not included)... Normal [facility] Hematocrit Auto (Bld) [Volum e fraction]Ordered By: Stone Leong on 09-20-2024 Hematocrit (Bld) [Volume fraction] 38.4 % Low 40-54 [facility] Hemoglobin A1c percentageOrd ered By: Zeferino Dwyer on 09-20-2024 HbA1c (Bld) [Mass fraction] 6.9 % Normal <=5.6 [facility] Comment on above: Performed By: #### L 503.7505, L501.9100, L503.0106, L501.9985, L501.9520, L505.5000 #### [facility] [address] [place], [place], [id number] Hemoglobin measurementOrdere d By: Stone Leong on 09-20-2024 Hemoglobin (Bld) [Mass/Vol] 13.0 g/dL 13.0-16.5 [facility] Immature granulocytes/100 WB C Auto (Bld)Ordered By: Stone Leong on 09-20-2024 Immature granulocytes/100 WBC (Bld) 0.700 % 0.0-0.9 [facility] Comment on above: IG% - Immature Granu locytes (promyelocytes, myelocytes and metamyelocytes) > 1% indicates that a LEFT SHIFT is Present. Influenza virus A and B and SARS-CoV-2 (COVID-19) and Respiratory syncytial virus RNAOrdered By: Stone Leong on 09-20-2024 SARS-CoV-2 (COVID-19) RNA JEREMI+probe Ql (Unsp spec) Influenzae A Abnormal [facility] International normalized rat io (INR) calculationOrdered By: Stone Leong on 09-20-2024 INR Coag (Bld) [Relative time] 2.8 {INR} [facility] Ketones Test strip Ql (U)Ord ered By: Stone Leong on 09-20-2024 Ketones Ql (U) Negative Negative [facility] L. pneumophila Ag Ql (U)Orde red By: Zeferino Dwyer on 09-20-2024 Legionella Antigen [facility] L499.0042on 09-20-2024 Trop T High Sen 12 ng/L Normal <=22 [facility] Comment on above: Performed By: #### L 503.7505, L501.9100, L503.0106, L501.9985, L501.9520, L505.5000 #### [facility] [address] [place], [address] L501.4021on 09-20-2024 Trop T High Sen 14 ng/L Normal <=22 [facility] Comment on above: Performed By: #### L 503.7505, L501.9100, L503.0106, L501.9985, L501.9520, L505.5000 #### [facility] [address] [place], [address] L503.0106on 09-20-2024 Cobalamin (Vitamin B12) [Mass/Vol] 340 pg/mL Normal 180-914 [facility] Comment on above: Performed By: #### L 503.7505, L501.9100, L503.0106, L501.9985, L501.9520, L505.5000 #### [facility] [address] [facility] [place], [address] L503.7505on 09-20-2024 Natriuretic peptide B (Bld) [Mass/Vol] 644 pg/mL Normal <=1800 [facility] Comment on above: Result Comment: Hear t Failure Unlikely: < 300 pg/mL Heart Failure Likely < 50 Years: > 450 pg/mL 50-75 Years: > 900 pg/mL >75 Years: > 1800 pg/mL Performed By: #### L 503.7505, L501.9100, L503.0106, L501.9985, L501.9520, L505.5000 #### [facility] [address] [place], [address] Laboratory - Chemistry and C hemistry - challengeOrdered By: Zeferino Dwyer on 09-20-2024 Natriuretic peptide B (Bld) [Mass/Vol] 644 pg/mL <1800 [facility] Comment on above: Heart Failure Unlike ly: < 300 pg/mLHeart Failure Likely< 50 Years: > 450 pg/mL50-75 Years: > 900 pg/mL>75 Years: > 1800 pg/mL Laboratory - Chemistry and C hemistry - challengeOrdered By: Stone Leong on 09-20-2024 AST [Catalytic activity/Vol] 36 U/L <38 [facility] Lactic Acidon 09-20-2024 Lactate [Moles/Vol] 2.4 mmol/L Invalid Interpretation Code 0.0-2.0 [facility] Comment on above: Order Comment: Comme nts: if result >2, system reflex orders 2nd test @ 4hrsY Result Comment: Crit ical Result(s) Called at:2237 by:MARILIN MELARA TO LEONEL NEVAREZ??Results read back by same. Performed By: #### L 503.7505, L501.9100, L503.0106, L501.9985, L501.9520, L505.5000 #### [facility] [address] [place], [place], [id number] Lactate [Moles/Vol] 1.1 mmol/L Normal 0.0-2.[address] [facility] Comment on above: Order Comment: Y Performed By: #### L 300.3900, L501.4021, L503.6005, L500.4050, L300.4310, M200.1000, L100.0100 #### [facility] [address] [place], [address] Lactic acid measurementOrder ed By: Stone Leong on 09-20-2024 Lactate [Moles/Vol] 1.1 mmol/L 0.0-2.[address] [facility] Legionella Antigen Urineon 0 09-20-2024 LEGU URINE, CLEAN CATCH Legionella Antigen result interpretation: L pneumo Ag Ur Ql Negative Presumptive negative for Legionella pneumophila serogroup 1 antigen in urine, suggesting no recent or current infection. Legionella Ag, Urine Negative (See interpretation below) Normal [facility] Comment on above: Performed By: #### L 503.7505, L501.9100, L503.0106, L501.9985, L501.9520, L505.5000 #### [facility] [address] [place], [address] Lymphocytes Auto (Unsp spec) [#/Vol]Ordered By: Stone Leong on 09-20-2024 Lymphocytes (Bld) [#/Vol] 0.66 10*3/uL Low 0.83-4.51 [facility] Lymphocytes/100 WBC Auto (Un sp spec)Ordered By: Stone Leong on 09-20-2024 Lymphocytes/100 WBC (Bld) 4.8 % Low 19-41 [facility] M100.678on 09-20-2024 M100.678 RESULTS CALLED TO Girly StuffRTIN 09/20/24 1917 Anna Ortega. REPORT READ BACK BY SAME. Copy of report sent to Infection Control Printer [id number] 09/21/24 2824 [employer]. Pending SARS-CoV-2 (COVID 19) Negative INFLUENZA A A Positive A INFLUENZA B Negative RSV PCR Negative INFLUENZAE A Normal [facility] Comment on above: Performed By: #### L 300.3900, L501.4021, L503.6005, L500.4050, L300.4310, M200.1000, L100.0100 #### [facility] [address] [place], [address] MCV (mean corpuscular volume ) determinationOrdered By: Stone Leong on 09-20-2024 MCV (RBC) [Entitic vol] 93.7 fL 80-94 [facility] Magnesiumon 09-20-2024 Magnesium [Mass/Vol] 1.7 mg/dL Normal 1.5-2.2 [facility] Comment on above: Performed By: #### L 503.7505, L501.9100, L503.0106, L501.9985, L501.9520, L505.5000 #### [facility] [place], [address] Magnesium (Unsp spec) [Mass/ Vol]Ordered By: Zeferino Dwyer on 09-20-2024 Magnesium [Mass/Vol] 1.7 mg/dL 1.5-2.2 [facility] Mean corpuscular hemoglobin (MCH) determinationOrdered By: Stone Leong on 09-20-2024 MCH (RBC) [Entitic mass] 31.7 pg 27.0-32.0 [facility] Mean corpuscular hemoglobin concentration (MCHC) determinationOrdered By: Stone Leong on 09-20-2024 MCHC (RBC) [Mass/Vol] 33.9 g/dL 32-36 [facility] Mean platelet volume determi nationOrdered By: Stone Leong on 09-20-2024 Platelet mean volume (Bld) [Entitic vol] 11.4 fL 6.2-12.0 [facility] Methadone, urineOrdered By: Zeferino Dwyer on 09-20-2024 Urine Methadone Screen Negative < 300 ng/mL [facility] Microscopic analysis of urin e for red blood cells (RBC)Ordered By: Stone Leong on 09-20-2024 Urine RBC 0-5 SEEN /hpf 0-5 [facility] Monocyte percentageOrdered B y: Stone Leong on 09-20-2024 Monocytes/100 WBC (Bld) 9.6 % 0-10 [facility] Mucus LM Ql (Urine sed)Order ed By: Stone Leong on 09-20-2024 Mucus Ql (Urine sed) 0 SEEN /hpf [facility] Neutrophil percentageOrdered By: Stone Leong on 09-20-2024 Neutrophils/100 WBC (Bld) 84.1 % High 47-70 [facility] Nitrite Test strip Ql (U)Ord ered By: Stone Leong on 09-20-2024 Nitrite Ql (U) Negative Negative [facility] No Panel InformationOrdered By: Zeferino Dwyer on 09-20-2024 Blood Gas Sample Site L Radial [facility] Blood Gas Specimen Type ART [facility] Blood Gas Vent Mode Not entered [facility] Oxygen Delivery Device HFOV [facility] Urine Buprenorphine Qualitative Negative < 200 ng/mL [facility] Urine Oxycodone Screen Negative < 100 ng/mL [facility] No Panel InformationOrdered By: Stone Leong on 09-20-2024 Blood Gas Sample Site Not entered [facility] Blood Gas Specimen Type OSCAR [facility] Oxygen Delivery Device Room Air [facility] Troponin T High Sensitivity 14 ng/L <22 [facility] Nucleated red blood cell per centageOrdered By: Stone Leong on 09-20-2024 Nucleated RBC/100 WBC (Bld) [Ratio] 0 % 0-5 [facility] Oxygen (BldV) [Partial press ure]Ordered By: Stone Leong on 09-20-2024 Venous Blood Partial Pressure O2 33 mmHg 25-40 [facility] Oxygen saturation measuremen tOrdered By: Zeferino Dwyer on 09-20-2024 Blood Gas Oxygen Saturation 95 % 95-99 [facility] Partial Thromboplast Timeon 09-20-2024 aPTT Coag (Bld) [Time] 52.3 s High 24.1-36.2 [facility] Comment on above: Performed By: #### L 503.7505, L501.9100, L503.0106, L501.9985, L501.9520, L505.5000 #### [facility] [address] [place] [address]. [place], [place], [id number] Partial pressure of carbon d ioxide measurementOrdered By: Zeferino Dwyer on 09-20-2024 Arterial Blood Partial Pressure CO2 32.4 mmHg Low 35-45 [facility] Partial pressure of oxygen m easurementOrdered By: Zeferino Dwyer on 09-20-2024 Arterial Blood Partial Pressure O2 74 mmHG Low 75-100 [facility] Platelet countOrdered By: Suhas Leong on 09-20-2024 Platelets (Bld) [#/Vol] 209 10*3/uL 150-450 [facility] Platelets LM Ql (Bld)Ordered By: Stone Leong on 09-20-2024 Platelet Estimate A ADEQ [facility] Potassium (Unsp spec) [Mass/ Vol]Ordered By: Stone Leong on 09-20-2024 Potassium [Moles/Vol] 4.7 mmol/L 3.3-5.1 [facility] Protein Test strip Ql (U)Ord ered By: Stone Leong on 09-20-2024 Protein Ql (U) 100 mg/dl High Negative [facility] Prothrombin Time w/INRon INR Coag (PPP) [Relative time] 2.8 {INR} Normal [facility] Comment on above: Performed By: #### L 503.7505, L501.9100, L503.0106, L501.9985, L501.9520, L505.5000 #### [facility] [address] [place], [place], [id number] ([phone] PT Coag (PPP) [Time] 30.1 s High 11.7-14.9 [facility] Comment on above: Performed By: #### L 503.7505, L501.9100, L503.0106, L501.9985, L501.9520, L505.5000 #### [facility] [address] [place], [address] Prothrombin timeOrdered By: Stone Leong on 09-20-2024 PT Coag (PPP) [Time] 30.1 s High 11.7-14.9 [facility] Quantitative urine opiates m easurementOrdered By: Zeferino Dwyer on 09-20-2024 Opiates Ql (U) Negative < 300 ng/mL [facility] RBC Auto (Bld) [#/Vol]Ordere d By: Stone Leong on 09-20-2024 RBC (Bld) [#/Vol] 4.10 10*6/uL Low 4.6-6.[address] [facility] Serum creatinine measurement (mass/volume)Ordered By: Stone Leong on 09-20-2024 Creatinine [Mass/Vol] 1.19 mg/dL 0.70-1.20 [facility] Serum globulin measurementOr dered By: Stone Leong on 09-20-2024 Globulin (S) [Mass/Vol] 3.8 g/dL 2.2-4.2 [facility] Serum glucose measurement (m ass/volume)Ordered By: Stone Leong on 09-20-2024 Glucose [Mass/Vol] 248 mg/dL High 70-99 [facility] Serum or plasma alanine moreno otransferase (ALT) measurementOrdered By: Stone Leong on 09-20-2024 ALT [Catalytic activity/Vol] 23 U/L <47 [facility] Serum or plasma albumin camryn urement (mass/volume)Ordered By: Stone Marin on 09-20-2024 Albumin [Mass/Vol] 4.0 g/dL 3.4-4.8 [facility] Serum or plasma albumin/glob ulin mass ratioOrdered By: Stone Leong on 09-20-2024 Albumin/Globulin [Mass ratio] 1.1 {ratio} 0.9-2.4 [facility] Serum or plasma alkaline drew sphatase measurementOrdered By: Stone Leong on 09-20-2024 ALP [Catalytic activity/Vol] 62 U/L 40-129 [facility] Serum or plasma calcium camryn urement (mass/volume)Ordered By: Stone Marin on 09-20-2024 Calcium [Mass/Vol] 9.7 mg/dL 7.6-11.0 [facility] Serum or plasma urea nitroge n measurement (mass/volume)Ordered By: Stone Leong on 09-20-2024 Urea nitrogen [Mass/Vol] 41 mg/dL High 4-19 [facility] Sodium levelOrdered By: Yazan Leong on 09-20-2024 Sodium [Moles/Vol] 133 mmol/L 133-145 [facility] Strep pneumoniae Antig(UR,CS F)on 09-20-2024 STPAG URINE INTERPRETATION Strep pneumoniae Antig(UR,CSF) Negative Urine Presumptive negative for pneumococcal pneumonia, suggesting no current or recent pneumococcal infection. Infection due to S pneumoniae cannot be ruled out since the antigen present in the sample may be below the detection limit of the test. Strep pneumo Test Negative URINE (See interpretation below) Normal [facility] Comment on above: Performed By: #### L 503.7505, L501.9100, L503.0106, L501.9985, L501.9520, L505.5000 #### [facility] [address] [place], [address] Streptococcus pneumoniae ant igen assayOrdered By: Zeferino Dwyer on 09-20-2024 Streptococcus pneumoniae Antigen (M [facility] TSH DL <= 0.005 mIU/L QnOrde red By: Zeferino Dwyer on 09-20-2024 Thyroid Stimulating Hormone (TSH) 0.328 uIU/mL 0.300-4.200 [facility] Thyroid Stim Hormone (TSH)on 09-20-2024 TSH 0.328 uIU/mL Normal 0.300-4.200 [facility] Comment on above: Performed By: #### L 503.7505, L501.9100, L503.0106, L501.9985, L501.9520, L505.5000 #### [facility] [address] [place], [address] Total carbon dioxide measure mentOrdered By: Zeferino Dwyer on 09-20-2024 Blood Gas Total CO2 22 mmol/L [facility] Total proteinOrdered By: Lizandro Leong on 09-20-2024 Protein [Mass/Vol] 7.7 g/dL 5.9-8.4 [facility] Troponin T.cardiac High sens itivity method [Mass/Vol]Ordered By: Stone Marin on 09-20-2024 Troponin T High Sensitivity 2 Hour 12 ng/L <22 [facility] Urinalysis, Completeon 09-20 BACTERIA 1+ /hpf Normal None Seen [facility] Comment on above: Order Comment: KARTHIKEYAN CTOR TO SPECIFY Performed By: #### L 503.7505, L501.9100, L503.0106, L501.9985, L501.9520, L505.5000 #### [facility] [address] [place], [address] RBC 0-5 SEEN Normal 0-5 [facility] Comment on above: Order Comment: KARTHIKEYAN CTOR TO SPECIFY Performed By: #### L 503.7505, L501.9100, L503.0106, L501.9985, L501.9520, L505.5000 #### [facility] [address] [place], [address] WBC 0-5 SEEN Normal 0-5 [facility] Comment on above: Order Comment: KARTHIKEYAN CTOR TO SPECIFY Performed By: #### L 503.7505, L501.9100, L503.0106, L501.9985, L501.9520, L505.5000 #### [facility] [address] [place], [address] EPI,SQUAMOUS 0 SEEN Normal 0-5 [facility] Comment on above: Order Comment: KARTHIKEYAN CTOR TO SPECIFY Performed By: #### L 503.7505, L501.9100, L503.0106, L501.9985, L501.9520, L505.5000 #### [facility] [address] [place], [address] Mucus Ql (Urine sed) 0 SEEN Normal [facility] Comment on above: Order Comment: KARTHIKEYAN CTOR TO SPECIFY Performed By: #### L 503.7505, L501.9100, L503.0106, L501.9985, L501.9520, L505.5000 #### [facility] [address] [place], [address] Urine Drug Screen (VISTA)on 09-20-2024 AMPHETAMINES Negative Normal <1000 ng/mL [facility] Comment on above: Performed By: #### L 503.7505, L501.9100, L503.0106, L501.9985, L501.9520, L505.5000 #### [facility] [address] [facility] [address] BARBITIURATES Negative Normal < 200 ng/mL [facility] Comment on above: Performed By: #### L 503.7505, L501.9100, L503.0106, L501.9985, L501.9520, L505.5000 #### [facility] [address] [place] [address] BENZODIAZIPINE Negative Normal < 200 ng/mL [facility] Comment on above: Performed By: #### L 503.7505, L501.9100, L503.0106, L501.9985, L501.9520, L505.5000 #### [facility] [address] [place], [place], [facility] BUP Ur Drug Scr Negative Normal < 200 ng/mL [facility] Comment on above: Performed By: #### L 503.7505, L501.9100, L503.0106, L501.9985, L501.9520, L505.5000 #### [facility] [address] [place] [address] COCAINE Negative Normal < 300 ng/mL [facility] Comment on above: Performed By: #### L 503.7505, L501.9100, L503.0106, L501.9985, L501.9520, L505.5000 #### [facility] [address] [place] [address] Fentanyl Negative Normal [facility] Comment on above: Performed By: #### L 503.7505, L501.9100, L503.0106, L501.9985, L501.9520, L505.5000 #### [facility] [address] [place], [address] METHADONE Negative Normal < 300 ng/mL [facility] Comment on above: Performed By: #### L 503.7505, L501.9100, L503.0106, L501.9985, L501.9520, L505.5000 #### [facility] [address] [place], [address] OPIATES Negative Normal < 300 ng/mL [facility] Comment on above: Performed By: #### L 503.7505, L501.9100, L503.0106, L501.9985, L501.9520, L505.5000 #### [facility] [address] [place], [address] OXYCODONE Negative Normal < 100 ng/mL [facility] Comment on above: Performed By: #### L 503.7505, L501.9100, L503.0106, L501.9985, L501.9520, L505.5000 #### [facility] [address] [place], [address] PCP Negative Normal < 25 ng/mL [facility] Comment on above: Performed By: #### L 503.7505, L501.9100, L503.0106, L501.9985, L501.9520, L505.5000 #### [facility] [address] [place], [address] THC Negative Normal < 50 ng/mL [facility] Comment on above: Performed By: #### L 503.7505, L501.9100, L503.0106, L501.9985, L501.9520, L505.5000 #### [facility] [address] [place], [address] Urine benzodiazepine levelOr dered By: Zeferino Dwyer on 09-20-2024 Benzodiazepines Ql (U) Negative < 200 ng/mL [facility] Urine blood detectionOrdered By: Stone Leong on 09-20-2024 Urine Occult Blood 150 /ul High Negative [facility] Urine clarityOrdered By: Lizandro Leong on 09-20-2024 Clarity (U) Clear Clear [facility] Urine cocaine levelOrdered B y: Zeferino Dwyer on 09-20-2024 Cocaine Ql (U) Negative < 300 ng/mL [facility] Urine color determinationOrd ered By: Stone Leong on 09-20-2024 Color (U) Yellow Yellow [facility] Urine azmqu-9-azibrdpoylzupp abinol (THC) measurementOrdered By: Zeferino Dwyer on 09-20-2024 Cannabinoids Screen Ql (U) Negative < 50 ng/mL [facility] Urine leukocyte esterase det ection by dipstickOrdered By: Stone Leong on 09-20-2024 Leukocyte esterase Test strip Ql (U) Negative Negative [facility] Urine pHOrdered By: Stone Siu on 09-20-2024 pH (U) 6.0 [pH] 5.0 - 8.0 [facility] Urine phencyclidine (PCP) de tectionOrdered By: Zeferino Dwyer on 09-20-2024 Phencyclidine Ql (U) Negative < 25 ng/mL [facility] Urine sediment bacteria coun t by microscopy (number/high power field)Ordered By: Stone Leong on 09-20-2024 Bacteria LM.HPF (Urine sed) [#/Area] 1 /[HPF] None Seen [facility] Urine specific gravity measu rementOrdered By: Stone Leong on 09-20-2024 Specific gravity (U) [Rel density] 1.020 1.002-1.030 [facility] Urobilinogen Ql (U)Ordered B y: Stone Leong on 09-20-2024 Urine Urobilinogen Normal mg/dl Normal [facility] Venous Blood Gason Blood Gas Type OSCAR Normal [facility] Comment on above: Performed By: #### L 503.7505, L501.9100, L503.0106, L501.9985, L501.9520, L505.5000 #### [facility] [address] [place], [address] CO2 [Moles/Vol] 26 mmol/L Normal 23-33 [facility] Comment on above: Performed By: #### L 503.7505, L501.9100, L503.0106, L501.9985, L501.9520, L505.5000 #### [facility] [address] [place], [address] HCO3 (Bld) [Moles/Vol] 25 mmol/L Normal 22-26 [facility] Comment on above: Performed By: #### L 503.7505, L501.9100, L503.0106, L501.9985, L501.9520, L505.5000 #### [facility] [address] [place], [address] O2 Delivery Dev Room Air [facility] Comment on above: Performed By: #### L 503.7505, L501.9100, L503.0106, L501.9985, L501.9520, L505.5000 #### [facility] [address] [place], [address] SITE Not entered [facility] Comment on above: Performed By: #### L 503.7505, L501.9100, L503.0106, L501.9985, L501.9520, L505.5000 #### [facility] [address] [place], [address] VBG BE -1 mmol/L Normal -1.0-3.5 [facility] Comment on above: Performed By: #### L 503.7505, L501.9100, L503.0106, L501.9985, L501.9520, L505.5000 #### [facility] [address] [place], [address] VBG pCO2 40.8 mmHg Low 41-51 [facility] Comment on above: Performed By: #### L 503.7505, L501.9100, L503.0106, L501.9985, L501.9520, L505.5000 #### [facility] [address] [place], [address] VBG pH 7.39 Normal 7.32-7.42 [facility] Comment on above: Performed By: #### L 503.7505, L501.9100, L503.0106, L501.9985, L501.9520, L505.5000 #### [facility] [address] [place], [address] VBG PO2 33 mmHg Normal 25-40 [facility] Comment on above: Performed By: #### L 503.7505, L501.9100, L503.0106, L501.9985, L501.9520, L505.5000 #### [facility] [address] [place], [address] VBG SO2 62 Normal 50-70 [facility] Comment on above: Performed By: #### L 503.7505, L501.9100, L503.0106, L501.9985, L501.9520, L505.5000 #### [facility] [address] [place], [address] Venous blood bicarbonate óscar surementOrdered By: Stone Leong on 09-20-2024 HCO3 (Bld) [Moles/Vol] 25 mmol/L 22-26 [facility] Venous blood oxygen saturati on measurementOrdered By: Stone Leong on 09-20-2024 Oxygen saturation in Blood 62 % 50-70 [facility] Vitamin B12 ser/plasOrdered By: Zeferino Dwyer on 09-20-2024 Cobalamin (Vitamin B12) [Mass/Vol] 340 pg/mL 180-914 [facility] White blood cell (WBC) count Ordered By: Stone Leong on 09-20-2024 WBC (Bld) [#/Vol] 13.8 10*3/uL High 4.4-11.[address] [facility] White blood cell countOrdere d By: Stone Leong on 09-20-2024 Urine WBC 0-5 SEEN /hpf 0-5 [facility] aPTT Coag (PPP) [Time]Ordere d By: Stone Leong on 09-20-2024 aPTT Coag (Bld) [Time] 52.3 s High 24.1-36.2 [facility] fentaNYL Screen Ql (U)Ordere d By: Zeferino Dwyer on 09-20-2024 Urine Fentanyl Screen Negative [facility] pH (BldV)Ordered By: Stone Moreno on 09-20-2024 Venous Blood pH 7.39 7.32-7.42 [facility] pH (Unsp spec)Ordered By: Kuldeep Dwyer on 09-20-2024 Blood Gas pH 7.41 7.35-7.45 [facility] Comprehensive metabolic 2000 panelon 07-04-2024 Albumin BCP dye [Mass/Vol] 4.3 g/dL Normal 3.4-5.0 [facility] Comment on above: Performed By: #### 4 548-4 #### JENNIFER TAY ([id number]) [facility] ([facility]) [facility] [place] [address] ALP [Catalytic activity/Vol] 49 U/L Normal 33-136 [facility] Comment on above: Performed By: #### 4 548-4 #### JENNIFER TAY ([id number]) [facility] ([facility]) [facility] [place] [address] ALT With P-5'-P [Catalytic activity/Vol] 17 U/L Normal 10-52 [facility] Comment on above: Result Comment: Arlette ents treated with Sulfasalazine may generate falsely decreased results for ALT. Performed By: #### 4 548-4 #### JENNIFER TAY ([id number]) [facility] ([facility]) [address] [place] [address] 81697 Anion gap [Moles/Vol] 11 mmol/L Normal 10-20 [facility] Comment on above: Performed By: #### 4 548-4 #### JENNIFER TAY ([id number]) [facility] ([facility]) [address] [place] [address] 32583 AST With P-5'-P [Catalytic activity/Vol] 16 U/L Normal 9-39 [facility] Comment on above: Performed By: #### 4 548-4 #### JENNIFER TAY ([id number]) [facility] ([facility]) [address] [place] [address] 98831 Bilirubin [Mass/Vol] 0.8 mg/dL Normal 0.0-1.2 [facility] Comment on above: Performed By: #### 4 548-4 #### JENNIFER TAY ([id number]) [facility] ([facility]) [address] [place] [address] 96365 Calcium [Mass/Vol] 9.3 mg/dL Normal 8.6-10.[address] [facility] Comment on above: Performed By: #### 4 548-4 #### JENNIFER TAY ([id number]) [facility] ([facility]) [address] [place] [address] 91239 Chloride [Moles/Vol] 103 mmol/L Normal 98-107 [facility] Comment on above: Performed By: #### 4 548-4 #### JENNIFER TAY ([id number]) [facility] ([facility]) [address] [place] [address] 04012 CO2 [Moles/Vol] 30 mmol/L Normal 21-32 [facility] Comment on above: Performed By: #### 4 548-4 #### JENNIFER TAY ([id number]) [facility] ([facility]) [address] [place] [address] 96655 Creatinine [Mass/Vol] 0.88 mg/dL Normal 0.50-1.30 [facility] Comment on above: Performed By: #### 4 548-4 #### JENNIFER TAY ([id number]) [facility] ([facility]) [address] [place] [address] 41096 Glomerular filtration rate/1.73 sq M.predicted 88 mL/min/1.73m*2 Normal >60 [facility] Comment on above: Result Comment: Calc ulations of estimated GFR are performed using the 2020 CKD-EPI Study Refit equation without the race variable for the IDMS-Traceable creatinine methods. https://jasn.asnjournals.org/content//ASN.35408 10838 Performed By: #### 4 548-4 #### JENNIFER TAY ([id number]) [facility] ([facility]) [address] [place] [address] 63631 Glucose [Mass/Vol] 135 mg/dL High 74-[address] [facility] Comment on above: Performed By: #### 4 548-4 #### JENNIFER TAY ([id number]) [facility] ([facility]) [address] [place] [address] 13895 Potassium [Moles/Vol] 4.6 mmol/L Normal 3.5-5.3 [facility] Comment on above: Performed By: #### 4 548-4 #### JENNIFER TAY ([id number]) [facility] ([facility]) [address] [place] [address] 80489 Protein [Mass/Vol] 6.9 g/dL Normal 6.4-8.[address] [facility] Comment on above: Performed By: #### 4 548-4 #### JENNIFER TAY ([id number]) [facility] ([facility]) [address] [place] [address] 18280 Sodium [Moles/Vol] 139 mmol/L Normal 136-[address] [facility] Comment on above: Performed By: #### 4 548-4 #### JENNIFER TAY ([id number]) [facility] ([facility]) [address] [place] [address] Urea nitrogen [Mass/Vol] 18 mg/dL Normal 6-23 [facility] Comment on above: Performed By: #### 4 548-4 #### JENNIFER TAY ([id number]) [facility] ([facility]) [address] [place] [address] HbA1c (Bld) [Mass fraction]o n 07-04-2024 Average glucose Estimated from glycated hemoglobin (Bld) [Mass/Vol] 148 mg/dL Normal Not Established [facility] Comment on above: Order Comment: Diagn osis of Diabetes-Adults Non-Diabetic: < or = 5.6% Increased risk for developing diabetes: 5.7-6.4% Diagnostic of diabetes: > or = 6.5% Monitoring of Diabetes Age (y)....................... Therapeutic Goal (%) Adults: >18.........................<7.0 Pediatrics: 13-18...................<7.5 Pediatrics: 7-12....................<8.0 Pediatrics: 0-6..................... 7.5-8.5 [employer]. Diabetes Care 33(S1)Jun 2009 Performed By: #### 4 548-4 #### JENNIFER TAY ([id number]) [facility] ([facility]) [address] [place] [address] Hemoglobin A1c/Hemoglobin.to dagoberto 07-04-2024 HbA1c (Bld) [Mass fraction] 6.8 % High See comment [facility] Comment on above: Order Comment: Diagn osis of Diabetes-Adults Non-Diabetic: < or = 5.6% Increased risk for developing diabetes: 5.7-6.4% Diagnostic of diabetes: > or = 6.5% Monitoring of Diabetes Age (y)....................... Therapeutic Goal (%) Adults: >18.........................<7.0 Pediatrics: 13-18...................<7.5 Pediatrics: 7-12....................<8.0 Pediatrics: 0-6..................... 7.5-8.5 [employer]. Diabetes Care 33(S1), Jun 2009 Performed By: #### 4 548-4 #### JENNIFER TAY ([id number]) [facility] ([facility]) [address] [place] [address] 36888 CBC W Auto Differential pane l (Bld)on 02-25-2024 Basophils (Bld) [#/Vol] 0.04 x10*3/uL Normal 0.00-0.10 [facility] Comment on above: Performed By: #### 4 548-4 #### JENNIFER TAY ([id number]) [facility] ([facility]) [address] [place] [address] 06969 Basophils/100 WBC (Bld) 0.5 % Normal 0.0-2.0 [facility] Comment on above: Performed By: #### 4 548-4 #### JENNIFER TAY ([id number]) [facility] ([facility]) [address] [place] [address] 23329 Eosinophils (Bld) [#/Vol] 0.07 x10*3/uL Normal 0.00-0.40 [facility] Comment on above: Performed By: #### 4 548-4 #### JENNIFER TAY ([id number]) [facility] ([facility]) [address] [place] [address] 14388 Eosinophils/100 WBC (Bld) 0.9 % Normal 0.0-6.0 [facility] Comment on above: Performed By: #### 4 548-4 #### JENNIFER TAY ([id number]) [facility] ([facility]) [address] [place] [address] 83277 Erythrocyte distribution width (RBC) [Ratio] 13.8 % Normal 11.5-14.5 [facility] Comment on above: Performed By: #### 4 548-4 #### JENNIFER TAY ([id number]) [facility] ([facility]) [address] [place], [place] [address] Hematocrit (Bld) [Volume fraction] 42.7 % Normal 41.0-52.0 [facility] Comment on above: Performed By: #### 4 548-4 #### JENNIFER TAY ([id number]) [facility] ([facility]) [address] [place] [address] Hemoglobin (Bld) [Mass/Vol] 13.5 g/dL Normal 13.5-17.5 [facility] Comment on above: Performed By: #### 4 548-4 #### JENNIFER TAY ([id number]) [facility] ([facility]) [address] [place], [place] [address] Immature granulocytes (Bld) [#/Vol] 0.02 x10*3/uL Normal 0.00-0.50 [facility] Comment on above: Performed By: #### 4 548-4 #### JENNIFER TAY ([id number]) [facility] ([facility]) [address] [place] [address] 44409 Immature granulocytes/100 WBC (Bld) 0.2 % Normal 0.0-0.9 [facility] Comment on above: Result Comment: Christy ture Granulocyte Count (IG) includes promyelocytes, myelocytes and metamyelocytes but does not include bands. Percent differential counts (%) should be interpreted in the context of the absolute cell counts (cells/UL). Performed By: #### 4 548-4 #### JENNIFER TAY ([id number]) [facility] ([facility]) [address] [place] [address] 87195 Lymphocytes (Bld) [#/Vol] 1.58 x10*3/uL Normal 0.80-3.00 [facility] Comment on above: Performed By: #### 4 548-4 #### JENNIFER TAY ([id number]) [facility] ([facility]) [address] [place] [address] 15000 Lymphocytes/100 WBC (Bld) 19.5 % Normal 13.0-44.0 [facility] Comment on above: Performed By: #### 4 548-4 #### JENNIFER TAY ([id number]) [facility] ([facility]) [address] [place] [address] 77694 MCH (RBC) [Entitic mass] 30.5 pg Normal 26.0-34.0 [facility] Comment on above: Performed By: #### 4 548-4 #### JENNIFER TAY ([id number]) [facility] ([facility]) [address] [place] [address] 75492 MCHC (RBC) [Mass/Vol] 31.6 g/dL Low 32.0-36.0 [facility] Comment on above: Performed By: #### 4 548-4 #### JENNIFER TAY ([id number]) [facility] ([facility]) [address] [place] [address] 42577 MCV (RBC) [Entitic vol] 97 fL Normal 80-100 [facility] Comment on above: Performed By: #### 4 548-4 #### JENNIFER TAY ([id number]) [facility] ([facility]) [address] [place] [address] 42189 Monocytes (Bld) [#/Vol] 0.57 x10*3/uL Normal 0.05-0.80 [facility] Comment on above: Performed By: #### 4 548-4 #### JENNIFER TAY ([id number]) [facility] ([facility]) [address] [place] [address] 52069 Monocytes/100 WBC (Bld) 7.0 % Normal 2.0-10.0 [facility] Comment on above: Performed By: #### 4 548-4 #### JENNIFER TAY ([id number]) [facility] ([facility]) [address] [place] [address] 99967 Neutrophils (Bld) [#/Vol] 5.81 x10*3/uL High 1.60-5.50 [facility] Comment on above: Result Comment: Perc ent differential counts (%) should be interpreted in the context of the absolute cell counts (cells/uL). Performed By: #### 4 548-4 #### JENNIFER TAY ([id number]) [facility] ([facility]) [address] [place] [address] 90687 Neutrophils/100 WBC (Bld) 71.9 % Normal 40.0-80.0 [facility] Comment on above: Performed By: #### 4 548-4 #### JENNIFER TAY ([id number]) [facility] ([facility]) [address] [place] [address] 81809 Nucleated RBC/100 WBC (Bld) [Ratio] 0.0 /100 WBCs Normal 0.0-0.0 [facility] Comment on above: Performed By: #### 4 548-4 #### JENNIFER TAY ([id number]) [facility] ([facility]) [address] [place] [address] 47302 Platelets (Bld) [#/Vol] 288 x10*3/uL Normal 150-450 [facility] Comment on above: Performed By: #### 4 548-4 #### JENNIFER TAY ([id number]) [facility] ([facility]) [address] [place] [address] 78295 RBC (Bld) [#/Vol] 4.42 x10*6/uL Low 4.50-5.90 [facility] Comment on above: Performed By: #### 4 548-4 #### JENNIFER TAY ([id number]) [facility] ([facility]) [address] [place] [address] 32897 WBC (Bld) [#/Vol] 8.1 x10*3/uL Normal 4.4-11.3 [facility] Comment on above: Performed By: #### 4 548-4 #### JENNIFER TAY ([id number]) [facility] ([facility]) [address] [place] [address] 09590 Coagulation tissue factor in ducedon 02-25-2024 PT Coag (PPP) [Time] 26.8 s High 9.8-12.8 [facility] Comment on above: Performed By: #### 4 548-4 #### JENNIFER TAY ([id number]) [facility] ([facility]) [address] [place] [address] Comprehensive metabolic 2000 panelon 02-25-2024 Albumin BCP dye [Mass/Vol] 4.5 g/dL Normal 3.4-5.0 [facility] Comment on above: Performed By: #### 4 548-4 #### JENNIFER TAY ([id number]) [facility] ([facility]) [address] [place] [address] ALP [Catalytic activity/Vol] 59 U/L Normal 33-136 [facility] Comment on above: Performed By: #### 4 548-4 #### JENNIFER TAY ([id number]) [facility] ([facility]) [address] [place] [address] ALT With P-5'-P [Catalytic activity/Vol] 20 U/L Normal 10-52 [facility] Comment on above: Result Comment: Arlette ents treated with Sulfasalazine may generate falsely decreased results for ALT. Performed By: #### 4 548-4 #### JENNIFER TAY ([id number]) [facility] ([facility]) [address] [place] [address] 91532 Anion gap [Moles/Vol] 12 mmol/L Normal 10-20 [facility] Comment on above: Performed By: #### 4 548-4 #### JENNIFER TAY ([id number]) [facility] ([facility]) [address] [place] [address] 42256 AST With P-5'-P [Catalytic activity/Vol] 18 U/L Normal 9-39 [facility] Comment on above: Performed By: #### 4 548-4 #### JENNIFER TAY ([id number]) [facility] ([facility]) [address] [place] [address] 30428 Bilirubin [Mass/Vol] 1.2 mg/dL Normal 0.0-1.2 [facility] Comment on above: Performed By: #### 4 548-4 #### JENNIFER TAY ([id number]) [facility] ([facility]) [address] [place] [address] 40655 Calcium [Mass/Vol] 9.6 mg/dL Normal 8.6-10.[address] [facility] Comment on above: Performed By: #### 4 548-4 #### JENNIFER TAY ([id number]) [facility] ([facility]) [address] [place] [address] 60924 Chloride [Moles/Vol] 103 mmol/L Normal 98-107 [facility] Comment on above: Performed By: #### 4 548-4 #### JENNIFER TAY ([id number]) [facility] ([facility]) [address] [place] [address] 52853 CO2 [Moles/Vol] 28 mmol/L Normal 21-32 [facility] Comment on above: Performed By: #### 4 548-4 #### JENNIFER TAY ([id number]) [facility] ([facility]) [address] [place] [address] 22652 Creatinine [Mass/Vol] 0.96 mg/dL Normal 0.50-1.30 [facility] Comment on above: Performed By: #### 4 548-4 #### JENNIFER TAY ([id number]) [facility] ([facility]) [address] [place] [address] 90327 Glomerular filtration rate/1.73 sq M.predicted 81 mL/min/1.73m*2 Normal >60 [facility] Comment on above: Result Comment: Calc ulations of estimated GFR are performed using the 2020 CKD-EPI Study Refit equation without the race variable for the IDMS-Traceable creatinine methods. https://jasn.asnjournals.org/content//ASN.60603 88076 Performed By: #### 4 548-4 #### JENNIFER TAY ([id number]) [facility] ([facility]) [address] [place] [address] 64943 Glucose [Mass/Vol] 139 mg/dL High 74-[address] [facility] Comment on above: Performed By: #### 4 548-4 #### JENNIFER TAY ([id number]) [facility] ([facility]) [address] [place] [address] 71692 Potassium [Moles/Vol] 4.6 mmol/L Normal 3.5-5.3 [facility] Comment on above: Performed By: #### 4 548-4 #### JENNIFER TAY ([id number]) [facility] ([facility]) [address] [place] [address] 01417 Protein [Mass/Vol] 7.3 g/dL Normal 6.4-8.[address] [facility] Comment on above: Performed By: #### 4 548-4 #### JENNIFER TAY ([id number]) [facility] ([facility]) [address] [place] [address] 16722 Sodium [Moles/Vol] 138 mmol/L Normal 136-[address] [facility] Comment on above: Performed By: #### 4 548-4 #### JENNIFER TAY ([id number]) [facility] ([facility]) [address] [place] [address] 61666 Urea nitrogen [Mass/Vol] 15 mg/dL Normal 6-23 [facility] Comment on above: Performed By: #### 4 548-4 #### JENNIFER TAY ([id number]) [facility] ([facility]) [address] [place] [address] 60016 ECG 12 Leadon 02-25-2024 AFIB with rapid ventricular response. RBBB [facility] Work Phone: [facility] Work Phone: HbA1c (Bld) [Mass fraction]o n 02-25-2024 Average glucose Estimated from glycated hemoglobin (Bld) [Mass/Vol] 154 mg/dL Normal Not Established [facility] Comment on above: Order Comment: Diagn osis of Diabetes-Adults Non-Diabetic: < or = 5.6% Increased risk for developing diabetes: 5.7-6.4% Diagnostic of diabetes: > or = 6.5% Monitoring of Diabetes Age (y)....................... Therapeutic Goal (%) Adults: >18.........................<7.0 Pediatrics: 13-18...................<7.5 Pediatrics: 7-12....................<8.0 Pediatrics: 0-6..................... 7.5-8.5 [employer]. Diabetes Care 33(S1)Jun 2009 Performed By: #### 4 548-4 #### RODRIGUEZ MAGGI ([id number]) [facility] ([facility]) [address] [place] [address] Hemoglobin A1c/Hemoglobin.to dagoberto 02-25-2024 HbA1c (Bld) [Mass fraction] 7.0 % High see below [facility] Comment on above: Order Comment: Diagn osis of Diabetes-Adults Non-Diabetic: < or = 5.6% Increased risk for developing diabetes: 5.7-6.4% Diagnostic of diabetes: > or = 6.5% Monitoring of Diabetes Age (y)....................... Therapeutic Goal (%) Adults: >18.........................<7.0 Pediatrics: 13-18...................<7.5 Pediatrics: 7-12....................<8.0 Pediatrics: 0-6..................... 7.5-8.5 [employer]. Diabetes Care 33(S1), Jun 2009 Performed By: #### 4 548-4 #### JENNIFER TAY ([id number]) [facility] ([facility]) [address] [place] [address] PT Coag (PPP) [Time]on 02-24 INR Coag (PPP) [Relative time] 2.3 High 0.9-1.1 [facility] Comment on above: Performed By: #### 4 548-4 #### JENNIFER TAY ([id number]) [facility] ([facility]) [address] [place] [address] Comprehensive metabolic 2000 panelon 01-11-2024 Albumin BCP dye [Mass/Vol] 4.4 g/dL Normal 3.4-5.0 [facility] Comment on above: Performed By: #### 4 548-4 #### JENNIFER TAY ([id number]) [facility] ([facility]) [address] [place] [address] ALP [Catalytic activity/Vol] 59 U/L Normal 33-136 [facility] Comment on above: Performed By: #### 4 548-4 #### JENNIFER TAY ([id number]) [facility] ([facility]) [address] [place] [address] ALT With P-5'-P [Catalytic activity/Vol] 19 U/L Normal 10-52 [facility] Comment on above: Result Comment: Arlette ents treated with Sulfasalazine may generate falsely decreased results for ALT. Performed By: #### 4 548-4 #### JENNIFER TAY ([id number]) [facility] ([facility]) [address] [place] [address] Anion gap [Moles/Vol] 12 mmol/L Normal 10-20 [facility] Comment on above: Performed By: #### 4 548-4 #### JENNIFER TAY ([id number]) [facility] ([facility]) [address] [place], [place] [id number] AST With P-5'-P [Catalytic activity/Vol] 17 U/L Normal 9-39 [facility] Comment on above: Performed By: #### 4 548-4 #### JENNIFER TAY ([id number]) [facility] ([facility]) [facility] [place] [address] Bilirubin [Mass/Vol] 1.0 mg/dL Normal 0.0-1.2 [facility] [place] Comment on above: Performed By: #### 4 548-4 #### JENNIFER TAY ([id number]) [facility] ([facility]) [address] [place] [id number] Calcium [Mass/Vol] 9.4 mg/dL Normal 8.6-10.[address] [facility] Comment on above: Performed By: #### 4 548-4 #### JENNIFER TAY ([id number]) [facility] ([facility]) [address] [place] [address]25 Chloride [Moles/Vol] 104 mmol/L Normal 98-107 [facility] [place] Comment on above: Performed By: #### 4 548-4 #### JENNIFER TAY ([id number]) [facility] ([facility]) [address] [place] [id number] CO2 [Moles/Vol] 27 mmol/L Normal 21-32 [facility] Comment on above: Performed By: #### 4 548-4 #### JENNIFER TAY ([id number]) [facility] [facility] ([facility]) [facility] [place] [address] Creatinine [Mass/Vol] 0.95 mg/dL Normal 0.50-1.30 [facility] Comment on above: Performed By: #### 4 548-4 #### JENNIFER TAY ([id number]) [facility] ([facility]) [address] [place] [address] 74941 Glomerular filtration rate/1.73 sq M.predicted 82 mL/min/1.73m*2 Normal >60 [facility] Comment on above: Result Comment: Calc ulations of estimated GFR are performed using the 2020 CKD-EPI Study Refit equation without the race variable for the IDMS-Traceable creatinine methods. https://jasn.asnjournals.org/content//ASN 59250 Performed By: #### 4 548-4 #### JENNIFER TAY ([id number]) [facility] ([facility]) [address] [place] [address] 16635 Glucose [Mass/Vol] 120 mg/dL High 74-[address] [facility] Comment on above: Performed By: #### 4 548-4 #### JENNIFER TAY ([id number]) [facility] ([facility]) [address] [place] [address] 03744 Potassium [Moles/Vol] 4.5 mmol/L Normal 3.5-5.3 [facility] Comment on above: Performed By: #### 4 548-4 #### JENNIFER TAY ([id number]) [facility] ([facility]) [address] [place] [address] 05434 Protein [Mass/Vol] 7.1 g/dL Normal 6.4-8.[address] [facility] Comment on above: Performed By: #### 4 548-4 #### JENNIFER TAY ([id number]) [facility] ([facility]) [address] [place] [address] 70468 Sodium [Moles/Vol] 138 mmol/L Normal 136-[address] [facility] Comment on above: Performed By: #### 4 548-4 #### JENNIFER TAY ([id number]) [facility] ([facility]) [address] [place] [address] 44002 Urea nitrogen [Mass/Vol] 17 mg/dL Normal 6-23 [facility] Comment on above: Performed By: #### 4 548-4 #### JENNIFER TAY ([id number]) [facility] ([facility]) [address] [place] [address] 88777 HbA1c (Bld) [Mass fraction]o n 01-11-2024 Average glucose Estimated from glycated hemoglobin (Bld) [Mass/Vol] 146 mg/dL Normal Not Established [facility] Comment on above: Order Comment: Diagn osis of Diabetes-Adults Non-Diabetic: < or = 5.6% Increased risk for developing diabetes: 5.7-6.4% Diagnostic of diabetes: > or = 6.5% Performed By: #### 4 548-4 #### JENNIFER TAY ([id number]) [facility] ([facility]) [address] [place] [address] 24064 Hemoglobin A1c/Hemoglobin.to dagoberto 01-11-2024 HbA1c (Bld) [Mass fraction] 6.7 % High see below [facility] Comment on above: Order Comment: Diagn osis of Diabetes-Adults Non-Diabetic: < or = 5.6% Increased risk for developing diabetes: 5.7-6.4% Diagnostic of diabetes: > or = 6.5% Performed By: #### 4 548-4 #### JENNIFER TAY ([id number]) [facility] ([facility]) [address] [place], [place] [address] Lipid 1996 panelon Cholesterol [Mass/Vol] 110 mg/dL Normal 0-199 [facility] Comment on above: Result Comment: [...] By: #### 4 548-4 #### JENNIFER TAY ([id number]) [facility] ([facility]) [address] [place] [address] 95785 Cholesterol in HDL [Mass/Vol] 42.0 mg/dL Normal [facility] Comment on above: Result Comment: Age Very Low Low Normal High 0-19 Y < 35 < 40 40-45 ---- 20-24 Y ---- < 40 >45 ---- >24 Y ---- < 40 40-60 >60 Performed By: #### 4 548-4 #### JENNIFER TAY ([id number]) [facility] ([facility]) [facility] [place] [address] Cholesterol in LDL [Mass/Vol] 43 mg/dL Normal <=99 [facility] Comment on above: Result Comment: Near Borderline AGE Desirable Optimal High High Very High 0-19 Y 0 - 109 --- 110-129 >/= 130 ---- 20-24 Y 0 - 119 --- 120-159 >/= 160 ---- >24 Y 0 - 99 100-129 130-159 160-189 >/=190 Performed By: #### 4 548-4 #### JENNIFER TAY ([id number]) [facility] ([facility]) [address] [place] [address] 26272 Cholesterol in VLDL [Mass/Vol] 25 mg/dL Normal 0-40 [facility] Comment on above: Performed By: #### 4 548-4 #### JENNIFER TAY ([id number]) [facility] ([facility]) [address] [place] [address] 96815 CHOLESTEROL/HDL RATIO 2.6 Normal [facility] Comment on above: Result Comment: Ref Values Desirable < 3.4 High Risk > 5.0 Performed By: #### 4 548-4 #### JENNIFER TAY ([id number]) [facility] ([facility]) [address] [place] [address] 16588 NON HDL CHOLESTEROL 68 mg/dL Normal 0-149 [facility] Comment on above: Result Comment: Age Desirable Borderline High High Very High 0-19 Y 0 - 119 120 - 144 >/= 145 >/= 160 20-24 Y 0 - 149 150 - 189 >/= 190 ---- >24 Y 30 mg/dL above LDL Cholesterol goal Performed By: #### 4 548-4 #### JENNIFER TAY ([id number]) [facility] ([facility]) [address] [place] [address] 82014 Triglyceride [Mass/Vol] 126 mg/dL Normal 0-149 [facility] Comment on above: Result Comment: Age [...] By: #### 4 548-4 #### JENNIFER TAY ([id number]) [facility] ([facility]) [address] [place] [address] 27636 Prostate specific Agon 01-10 Prostate specific Ag [Mass/Vol] 2.38 ng/mL Normal <=4.00 [facility] Comment on above: Order Comment: The DA requires that the method used for PSA assay be reported to the physician. Values obtained with different assay methods must not be used interchangeably. This test was performed at [facility] using the [employer] PSA assay is a two-site immunoenzymatic sandwich assay. The assay is approved for measurement of prostate-specific antigen (PSA)in serum and may be used in conjunction with a digital rectal examination in men 50 years and older as an aid in detection of prostate cancer. 4-Vxlaw-yasjmarhn inhibitors (e.g. Proscar, Finasteride, Avodart, Dutasteride and Yessy) for the treatment of BPH have been shown to lower PSA levels by an average of 50% after 6 months of treatment. Performed By: #### 2 857-1 #### JENNIFER TAY ([id number]) [facility] ([facility]) [address] [place] [address] 15101 CBC W Auto Differential pane l (Bld)on 09-09-2023 Basophils (Bld) [#/Vol] 0.03 x10*3/uL Normal 0.00-0.10 [facility] Comment on above: Performed By: #### 5 7021-8 #### JENNIFER TAY ([id number]) [facility] ([facility]) [address] [place] [address] 28699 Basophils/100 WBC (Bld) 0.4 % Normal 0.0-2.0 [facility] Comment on above: Performed By: #### 5 7021-8 #### JENNIFER TAY ([id number]) [facility] ([facility]) [address] [place] [address] 69058 Eosinophils (Bld) [#/Vol] 0.14 x10*3/uL Normal 0.00-0.40 [facility] Comment on above: Performed By: #### 70-8 #### JENNIFER TAY ([id number]) [facility] ([facility]) [address] [place] [address] 62610 Eosinophils/100 WBC (Bld) 1.9 % Normal 0.0-6.0 [facility] Comment on above: Performed By: #### 7021-8 #### JENNIFER TAY ([id number]) [facility] ([facility]) [address] [place] [address] 37683 Erythrocyte distribution width (RBC) [Ratio] 13.2 % Normal 11.5-14.5 [facility] Comment on above: Performed By: #### 7021-8 #### JENNIFER TAY ([id number]) [facility] ([facility]) [address] [place] [address] 31554 Hematocrit (Bld) [Volume fraction] 41.8 % Normal 41.0-52.0 [facility] Comment on above: Performed By: #### 7021-8 #### JENNIFER TAY ([id number]) [facility] ([facility]) [address] [place] [address] 39181 Hemoglobin (Bld) [Mass/Vol] 14.0 g/dL Normal 13.5-17.5 [facility] Comment on above: Performed By: #### 7021-8 #### JENNIFER TAY ([id number]) [facility] ([facility]) [address] [place] [address] 15105 Immature granulocytes (Bld) [#/Vol] 0.02 x10*3/uL Normal 0.00-0.50 [facility] Comment on above: Performed By: #### 7021-8 #### JENNIFER TAY ([id number]) [facility] ([facility]) [address] [place] [address] 99983 Immature granulocytes/100 WBC (Bld) 0.3 % Normal 0.0-0.9 [facility] Comment on above: Result Comment: Christy ture Granulocyte Count (IG) includes promyelocytes, myelocytes and metamyelocytes but does not include bands. Percent differential counts (%) should be interpreted in the context of the absolute cell counts (cells/UL). Performed By: #### 5 7021-8 #### JENNIFER TAY ([id number]) [facility] ([facility]) [address] [place] [address] 04529 Lymphocytes (Bld) [#/Vol] 1.89 x10*3/uL Normal 0.80-3.00 [facility] Comment on above: Performed By: #### 5 7021-8 #### JENNIFER TAY ([id number]) [facility] ([facility]) [address] [place] [address] 89666 Lymphocytes/100 WBC (Bld) 25.9 % Normal 13.0-44.0 [facility] Comment on above: Performed By: #### 5 7021-8 #### JENNIFER TAY ([id number]) [facility] ([facility]) [address] [place] [address] 03987 MCH (RBC) [Entitic mass] 31.4 pg Normal 26.0-34.0 [facility] Comment on above: Performed By: #### 5 7021-8 #### JENNIFER TAY ([id number]) [facility] ([facility]) [address] [place] [address] 97498 MCHC (RBC) [Mass/Vol] 33.5 g/dL Normal 32.0-36.0 [facility] Comment on above: Performed By: #### 5 7021-8 #### JENNIFER TAY ([id number]) [facility] ([facility]) [address] [place] [address] 32947 MCV (RBC) [Entitic vol] 94 fL Normal 80-100 [facility] Comment on above: Performed By: #### 5 7021-8 #### JENNIFER TAY ([id number]) [facility] ([facility]) [address] [place] [address] 72656 Monocytes (Bld) [#/Vol] 0.60 x10*3/uL Normal 0.05-0.80 [facility] Comment on above: Performed By: #### 5 7021-8 #### JENNIFER TAY ([id number]) [facility] ([facility]) [address] [place] [address] 07599 Monocytes/100 WBC (Bld) 8.2 % Normal 2.0-10.0 [facility] Comment on above: Performed By: #### 5 7021-8 #### JENNIFER TAY ([id number]) [facility] ([facility]) [address] [place] [address] 83234 Neutrophils (Bld) [#/Vol] 4.63 x10*3/uL Normal 1.60-5.50 [facility] Comment on above: Result Comment: Perc ent differential counts (%) should be interpreted in the context of the absolute cell counts (cells/uL). Performed By: #### 5 7021-8 #### JENNIFER TAY ([id number]) [facility] ([facility]) [address] [place] [address] 73665 Neutrophils/100 WBC (Bld) 63.3 % Normal 40.0-80.0 [facility] Comment on above: Performed By: #### 5 7021-8 #### JENNIFER TAY ([id number]) [facility] ([facility]) [address] [place] [address] 75382 Nucleated RBC/100 WBC (Bld) [Ratio] 0.0 /100 WBCs Normal 0.0-0.0 [facility] Comment on above: Performed By: #### 5 7021-8 #### JENNIFER TAY ([id number]) [facility] ([facility]) [address] [place] [address] 38534 Platelets (Bld) [#/Vol] 282 x10*3/uL Normal 150-450 [facility] Comment on above: Performed By: #### 5 7021-8 #### JENNIFER TAY ([id number]) [facility] ([facility]) [address] [place] [address] 04683 RBC (Bld) [#/Vol] 4.46 x10*6/uL Low 4.50-5.90 [facility] Comment on above: Performed By: #### 5 7021-8 #### JENNIFER TAY ([id number]) [facility] ([facility]) [address] [place] [address] 58324 WBC (Bld) [#/Vol] 7.3 x10*3/uL Normal 4.4-11.3 [facility] Comment on above: Performed By: #### 5 7021-8 #### JENNIFER TAY ([id number]) [facility] ([facility]) [address] [place] [address] Cobalaminson 09-09-2023 Cobalamin (Vitamin B12) [Mass/Vol] 222 pg/mL Normal 211-911 [facility] Comment on above: Performed By: #### 2 132-9 #### JENNIFER TAY ([id number]) [facility] ([facility]) [address] [place] [address] 34025 Comprehensive metabolic 2000 panelon 09-09-2023 Albumin BCP dye [Mass/Vol] 4.4 g/dL Normal 3.4-5.0 [facility] Comment on above: Performed By: #### 2 4323-8 #### JENNIFER TAY ([id number]) [facility] ([facility]) [address] [place] [address] 56267 ALP [Catalytic activity/Vol] 55 U/L Normal 33-136 [facility] Comment on above: Performed By: #### 2 4323-8 #### JENNIFER TAY ([id number]) [facility] ([facility]) [address] [place] [address] 96932 ALT With P-5'-P [Catalytic activity/Vol] 21 U/L Normal 10-52 [facility] Comment on above: Result Comment: Arlette ents treated with Sulfasalazine may generate falsely decreased results for ALT. Performed By: #### 2 4323-8 #### JENNIFER TAY (26059) [facility] ([facility]) [address] [place] [address] Anion gap [Moles/Vol] 13 mmol/L Normal 10-20 [facility] Comment on above: Performed By: #### 2 4322-8 #### JENNIFER TAY ([id number]) [facility] ([facility]) [address] [place] [address] AST With P-5'-P [Catalytic activity/Vol] 23 U/L Normal 9-39 [facility] Comment on above: Performed By: #### 2 4322-8 #### JENNIFER TAY ([id number]) [facility] ([facility]) [address] [place] [address] 54936 Bilirubin [Mass/Vol] 1.0 mg/dL Normal 0.0-1.2 [facility] Comment on above: Performed By: #### 2 4322-8 #### JENNIFER TAY ([id number]) [facility] ([facility]) [address] [place] [address] Calcium [Mass/Vol] 9.5 mg/dL Normal 8.6-10.[address] [facility] Comment on above: Performed By: #### 2 4322-8 #### JENNIFER TAY (50793) [facility] ([facility]) [address] [place] [address] Chloride [Moles/Vol] 104 mmol/L Normal 98-107 [facility] Comment on above: Performed By: #### 2 4322-8 #### JENNIFER TAY ([id number]) [facility] ([facility]) [address] [place] [address] CO2 [Moles/Vol] 28 mmol/L Normal 21-32 [facility] Comment on above: Performed By: #### 2 4322-8 #### JENNIFER TAY (94626) [facility] ([facility]) [address] [place] [address] Creatinine [Mass/Vol] 0.89 mg/dL Normal 0.50-1.30 [facility] Comment on above: Performed By: #### 2 4323-8 #### JENNIFER TAY (82291) [facility] ([facility]) [address] [place] [address] 16460 Glomerular filtration rate/1.73 sq M.predicted 88 mL/min/1.73m*2 Normal >60 [facility] Comment on above: Result Comment: Calc ulations of estimated GFR are performed using the 2020 CKD-EPI Study Refit equation without the race variable for the IDMS-Traceable creatinine methods. https://jasn.asnjournals.org/content/early//ASN.07357 45521 Performed By: #### 2 4323-8 #### JENNIFER TAY ([id number]) [facility] ([facility]) [address] [place] [address] 99647 Glucose [Mass/Vol] 124 mg/dL High 74-[address] [facility] Comment on above: Performed By: #### 2 4323-8 #### JENNIFER TAY ([id number]) [facility] ([facility]) [address] [place] [address] 52637 Potassium [Moles/Vol] 4.9 mmol/L Normal 3.5-5.3 [facility] Comment on above: Performed By: #### 2 4323-8 #### JENNIFER TAY (88339) [facility] ([facility]) [address] [place] [address] 52042 Protein [Mass/Vol] 7.1 g/dL Normal 6.4-8.[address] [facility] Comment on above: Performed By: #### 2 4323-8 #### JENNIFER TAY (09902) [facility] ([facility]) [address] [place] [address] 71578 Sodium [Moles/Vol] 140 mmol/L Normal 136-[address] [facility] Comment on above: Performed By: #### 2 4323-8 #### JENNIFER TAY ([id number]) [facility] ([facility]) [address] [place] [address] 74321 Urea nitrogen [Mass/Vol] 15 mg/dL Normal 6-23 [facility] Comment on above: Performed By: #### 2 4323-8 #### JENNIFER TAY ([id number]) [facility] ([facility]) [address] [place] [address] Ferritinon 09-09-2023 Ferritin [Mass/Vol] 193 ng/mL Normal 20-300 [facility] Comment on above: Performed By: #### 2 276-4 #### JENNIFER TAY ([id number]) [facility] ([facility]) [address] [place] [address] Folateon 09-09-2023 Folate [Mass/Vol] ng/mL Normal >5.0 [facility] Comment on above: Order Comment: Low < 3.4 Borderline 3.4-5.0 Normal >5.0 Patients receiving more than 5 mg/day of biotin may have interference in test results. A sample should be taken no sooner than eight hours after previous dose. Contact the testing laboratory for additional information. Performed By: #### 2 284-8 #### JENNIFER TAY ([id number]) [facility] ([facility]) [facility] [place] [id number] HbA1c (Bld) [Mass fraction]o n 09-09-2023 Average glucose Estimated from glycated hemoglobin (Bld) [Mass/Vol] 154 mg/dL Normal Not Established [facility] Comment on above: Order Comment: Diagn osis of Diabetes-Adults Non-Diabetic: < or = 5.6% Increased risk for developing diabetes: 5.7-6.4% Diagnostic of diabetes: > or = 6.5% Monitoring of Diabetes Age (y)....................... Therapeutic Goal (%) Adults: >18.........................<7.0 Pediatrics: 13-18...................<7.5 Pediatrics: 7-12....................<8.0 Pediatrics: 0-6..................... 7.5-8.5 [employer] [employer]. Diabetes Care 33(S1), Jun 2009 Performed By: #### 4 548-4 #### JENNIFER TAY ([id number]) [facility] ([facility]) [address] [place] [address] Hemoglobin A1c/Hemoglobin.to dagoberto 09-09-2023 HbA1c (Bld) [Mass fraction] 7.0 % High see below [facility] Comment on above: Order Comment: Diagn osis of Diabetes-Adults Non-Diabetic: < or = 5.6% Increased risk for developing diabetes: 5.7-6.4% Diagnostic of diabetes: > or = 6.5% Monitoring of Diabetes Age (y)....................... Therapeutic Goal (%) Adults: >18.........................<7.0 Pediatrics: 13-18...................<7.5 Pediatrics: 7-12....................<8.0 Pediatrics: 0-6..................... 7.5-8.5 [place]. Diabetes Care 33(S1), Jun 2009 Performed By: #### 4 548-4 #### JENNIFER TAY ([id number]) [facility] ([facility]) [facility] [place] [address] Iron and Iron binding capaci ty panelon 09-09-2023 Iron [Mass/Vol] 108 ug/dL Normal 35-150 [facility] Comment on above: Performed By: #### 5 0190-8 #### JENNIFER TAY (81481) [facility] ([facility]) [facility] [place] [address] Iron binding capacity [Mass/Vol] 334 ug/dL Normal 240-445 [facility] Comment on above: Performed By: #### 5 0190-8 #### JENNIFER TOLBERTGUSTABO (55351) [facility] ([facility]) [address] [place] [address] 72896 Iron binding capacity.unsaturated [Mass/Vol] 226 ug/dL Normal 110-370 [facility] Comment on above: Performed By: #### 5 0190-8 #### RODRIGUEZ VERNAMATT (69846) [facility] ([facility]) [address] [place] [address] 70254 Iron saturation [Mass fraction] 32 % Normal 25-45 [facility] Comment on above: Performed By: #### 5 0190-8 #### JENNIFER GILLESPIEMATT (60782) [facility] ([facility]) [address] [place], [place] [id number] Methylmalonateon 09-09-2023 Methylmalonate [Moles/Vol] 0.18 umol/L Normal 0.00-0.40 [facility] Comment on above: Result Comment: INTE RPRETIVE INFORMATION: MMA Serum/Plasma, Vitamin B12 Status This test was developed and its performance characteristics determined by [facility]. It has not been cleared or approved by the [place] Food and Drug Administration. This test was performed in a CLIA certified laboratory and is intended for clinical purposes. Performed By: [facility] [address] [place] [address] Pier Hand Helper: Tong Emanuel MD, PhD CLIA Number: [id number] Performed By: #### 1 3964-2 #### [facility] KaitlinAMELIA) ([id number]) [address] [place] [address].doppler Upper extremity v ein - lefton 04-09-2023 [place] [address] ext-[phone], Vascular Lab Report Upper Venous Duplex Ultrasound Patient Name: HATTIE Misty [place]AMA [place] [id number] Graciela Stephenson MD Physician: Study Date: 04/08/2023 Ordering [id number] NEYMAR Sánchez Provider: DUC MRN/PID: [id number] Fellow: Technologist: Monalisa Rojas RVT/AB Date of 1945 Technologist 2: /Age: years Gender: M Admission Status: Outpatient Location [facility] Performed: Diagnosis/ICD: Lymphedema, not elsewhere classified-I89.0 [...] Spontaneous/Phasic Cephalic Yes None Basilic Yes None [id number] Graciela Stephenson MD Final Graciela Farrell MD - 04/09/2023 [place] [address] ext-[phone], Vascular Lab Report Upper Venous Duplex Ultrasound Patient Name: HATTIE VALDERRAMA [place] [id number] Graciela Stephenson MD Physician: Study Date: 04/08/2023 Ordering [id number] NEYMAR Sánchez Provider: DUC MRN/PID: [id number] Fellow: Technologist: Monalisa Rojas RVT/AB Date of 1945 Technologist 2: /Age: years Gender: M Admission Status: Outpatient Location [facility] Performed: Diagnosis/ICD: Lymphedema, not elsewhere classified-I89.0 [...] Spontaneous/Phasic Cephalic Yes None Basilic Yes None [id number] Graciela Stephenson MD Final [facility] Work Phone: US.doppler Upper extremity v ein - leftOrdered By: Graciela Stephenson on 04-09-2023 [facility] Work Phone: US.doppler Upper extremity v ein - lefton 04-08-2023 Radiology Study observation (narrative) [facility] Work Phone: PTINR - POCTon 02-17-2023 INR Coag (PPP) [Relative time] 2.8 {INR} High 1.0 - 1.2 [facility] Comment on above: Performed By: #### P SASC #### [place] [address] PT Coag (PPP) [Time] 32.5 s High 8.0 - 11.0 [facility] Comment on above: Performed By: #### P SASC #### [address] [address] PTINR - POCTon 02-03-2023 INR Coag (PPP) [Relative time] 3.5 {INR} High 1.0 - 1.2 [facility] Comment on above: Performed By: #### P PTIN #### [facility] [place] [id number] PT Coag (PPP) [Time] 39.1 s High 8.0 - 11.0 [facility] Comment on above: Performed By: #### P PTIN #### [facility] [place] [id number] COMPREHENSIVE PANELon 2022 Albumin [Mass/Vol] 4.3 g/dL Normal 3.4 - 5.0 [facility] Comment on above: Performed By: #### C MP #### [place] [id number] ALP [Catalytic activity/Vol] 63 U/L Normal 33 - 136 [facility] Comment on above: Performed By: #### C MP #### [address] [address] ALT [Catalytic activity/Vol] 18 U/L Normal 10 - 52 [facility] Comment on above: Result Comment: Arlette ents treated with Sulfasalazine may generate falsely decreased results for ALT. Performed By: #### C MP #### [address] [address] Anion gap [Moles/Vol] 12 mmol/L Normal 10 - 20 [facility] Comment on above: Performed By: #### C MP #### [address] [address] AST [Catalytic activity/Vol] 20 U/L Normal 9 - 39 [facility] Comment on above: Performed By: #### C MP #### [address] [address] Bilirubin [Mass/Vol] 1.0 mg/dL Normal 0.0 - 1.2 [facility] Comment on above: Performed By: #### C MP #### [address] [address] Calcium [Mass/Vol] 9.4 mg/dL Normal 8.6 - 10.3 [facility] Comment on above: Performed By: #### C MP #### [address] [address] Chloride [Moles/Vol] 104 mmol/L Normal 98 - 107 [facility] Comment on above: Performed By: #### C MP #### [address] [address] Creatinine [Mass/Vol] 0.96 mg/dL Normal 0.50 - 1.30 [facility] Comment on above: Performed By: #### C MP #### [address] [address] GFR/1.73 sq M.predicted among non-blacks MDRD (S/P/Bld) [Vol rate/Area] 82 mL/min/{1.73_m2} Normal >90 [facility] Comment on above: Result Comment: CALC ULATIONS OF ESTIMATED GFR ARE PERFORMED USING THE 2020 CKD-EPI STUDY REFIT EQUATION WITHOUT THE RACE VARIABLE FOR THE IDMS-TRACEABLE CREATININE METHODS. https://jasn.asnjournals.org/content/early/ASN.12078 05396 Performed By: #### C MP #### [address] [address] Glucose [Mass/Vol] 108 mg/dL High 74 - 99 [facility] Comment on above: Performed By: #### C MP #### [address] [address] HCO3 (Bld) [Moles/Vol] 27 mmol/L Normal 21 - 32 [facility] Comment on above: Performed By: #### C MP #### [address] [address] Potassium [Moles/Vol] 4.3 mmol/L Normal 3.5 - 5.3 [facility] Comment on above: Performed By: #### C MP #### [address] [address] Protein [Mass/Vol] 7.0 g/dL Normal 6.4 - 8.2 [facility] Comment on above: Performed By: #### C MP #### [address] [address] Sodium [Moles/Vol] 139 mmol/L Normal 136 - 145 [facility] Comment on above: Performed By: #### C MP #### [address] [address] Urea nitrogen [Mass/Vol] 21 mg/dL Normal 6 - 23 [facility] Comment on above: Performed By: #### C MP #### [address] [address] HEMOGLOBIN A1Con 01-06-2023 Glucose [Mass/Vol] 154 mg/dL Normal [facility] Comment on above: Performed By: #### P SASC #### [address] [address] HbA1c (Bld) [Mass fraction] 7.0 % Abnormal [facility] Comment on above: Result Comment: Diag nosis of Diabetes-Adults Non-Diabetic: < or = 5.6% Increased risk for developing diabetes: 5.7-6.4% Diagnostic of diabetes: > or = 6.5% . Monitoring of Diabetes Age (y) Therapeutic Goal (%) Adults: >18 <7.0 Pediatrics: 13-18 <7.5 7-12 <8.0 0- 6 7.5-8.5 [employer]. Diabetes Care 33(S1), Jun 2009. Performed By: #### P SASC #### [address] [address] HEPATITIS C ABon 01-06-2023 HEPATITIS C AB Non-Reactive Normal NONREACTIVE [facility] Comment on above: Result Comment: Resu lts from patients taking biotin supplements or receiving high-dose biotin therapy should be interpreted with caution due to possible interference with this test. Providers may contact their local laboratory for further information. Performed By: #### H CVAB #### [facility] [address] [place] [address] LIPID PANEL (CORONARY RISK 2 )on 01-06-2023 Cholesterol [Mass/Vol] 110 mg/dL Normal 0 - 199 [facility] Comment on above: Result Comment: . AGE [...] dosing. Performed By: #### P SASC #### [address] [address] Cholesterol in HDL [Mass/Vol] 41.0 mg/dL Normal [facility] Comment on above: Result Comment: . AGE VERY LOW LOW NORMAL HIGH 0-19 Y < 35 < 40 40-45 ---- 20-24 Y ---- < 40 >45 ---- >24 Y ---- < 40 40-60 >60 . Performed By: #### P SASC #### [address] [address] Cholesterol in LDL [Mass/Vol] 44 mg/dL Normal 0 - 99 [facility] Comment on above: Result Comment: . NEAR BORD AGE DESIRABLE OPTIMAL HIGH HIGH VERY HIGH 0-19 Y 0 - 109 --- 110-129 >/= 130 ---- 20-24 Y 0 - 119 --- 120-159 >/= 160 ---- >24 Y 0 - 99 100-129 130-159 160-189 >/=190 . Performed By: #### P SASC #### [address] [address] Cholesterol in VLDL [Mass/Vol] 25 mg/dL Normal 0 - 40 [facility] Comment on above: Performed By: #### P SASC #### [address] [address] Cholesterol.total/Chol esterol in HDL [Mass ratio] 2.7 {ratio} Normal [facility] Comment on above: Result Comment: REF VALUES DESIRABLE < 3.4 HIGH RISK > 5.0 Performed By: #### P SASC #### [address] [address] Triglyceride [Mass/Vol] 126 mg/dL Normal 0 - 149 [facility] Comment on above: Result Comment: . AGE [...] dosing. Performed By: #### P SASC #### [place] [id number] PROSTATE SPEC.AG,SCREENon PROSTATE SPEC.AG,SCREEN 2.16 ng/mL Normal 0.00 - 4.00 [facility] Comment on above: Result Comment: The FDA requires that the method used for PSA assay be reported to the physician. Values obtained with different assay methods must not be used interchangeably. This test was performed at [facility] using the [employer] PSA assay is a two-site immunoenzymatic sandwich assay. The assay is approved for measurement of prostate-specific antigen (PSA)in serum and may be used in conjunction with a digital rectal examination in men 50 years and older as an aid in detection of prostate cancer. 6-Pwrko-fruurvmey inhibitors (e.g. Proscar, Finasteride, Avodart, Dutasteride and Yessy) for the treatment of BPH have been shown to lower PSA levels by an average of 50% after 6 months of treatment. Performed By: #### P SASC #### [place] [address] Lab Specimen Source Normal [facility] Comment on above: Performed By: #### P SASC #### [place] [address] Performed By: #### H CVAB #### [facility] [address] [place] [address] Performed By: #### C MP #### [place] [address] PTINR - POCTon 01-06-2023 INR Coag (PPP) [Relative time] 2.3 {INR} High 1.0 - 1.2 [facility] Comment on above: Performed By: #### P PTIN #### [facility] COU[facility] [place] [id number] PT Coag (PPP) [Time] 26.2 s High 8.0 - 11.0 [facility] Comment on above: Performed By: #### P PTIN #### [facility] [place] [address] PTINR - POCTon 12-23-2022 INR Coag (PPP) [Relative time] 3.2 {INR} High 1.0 - 1.2 [facility] Comment on above: Performed By: #### P PTIN #### [facility] COUMAD[facility] [address] [address] PT Coag (PPP) [Time] 36.4 s High 8.0 - 11.0 [facility] Comment on above: Performed By: #### P PTIN #### [facility] COUM[facility] [address] [address] PTINR - POCTon 11-18-2022 INR Coag (PPP) [Relative time] 2.9 {INR} High 1.0 - 1.2 [facility] Comment on above: Performed By: #### P PTIN #### [facility] COU[facility] [address] [address] PT Coag (PPP) [Time] 33.1 s High 8.0 - 11.0 [facility] Comment on above: Performed By: #### P PTIN #### [facility] COU[facility] [address] [address] [facility] INR Coag (PPP) [Relative time] 2.5 {INR} High 1.0 - 1.2 [facility] Comment on above: Performed By: #### P PTIN #### [facility] COU[facility] [address] [address] PT Coag (PPP) [Time] 28.2 s High 8.0 - 11.0 [facility] Comment on above: Performed By: #### P PTIN #### [facility] COU[facility] [address] [address] Laboratory - Coagulationon 0 09-10-2022 PT Coag (PPP) [Time] 30.8 s above high threshold 8.0 - 11.0 [facility] Internal Medicine Work Phone: No Panel Informationon 09-10 2.7 1 above high threshold 1.0 - 1.2 [facility] Work Phone: PTINR - POCTon 09-10-2022 INR Coag (PPP) [Relative time] 2.7 {INR} High 1.0 - 1.2 [facility] Comment on above: Performed By: #### P [facility] #### [address] [address] PT Coag (PPP) [Time] 30.8 s High 8.0 - 11.0 [facility] Comment on above: Performed By: #### P [facility] #### [address] [address] COMPREHENSIVE PANELon 2022 Albumin [Mass/Vol] 4.3 g/dL Normal 3.4 - 5.0 [facility] Comment on above: Performed By: #### C MP #### [address] [address] ALP [Catalytic activity/Vol] 65 U/L 33 - 136 [facility] Work Phone: Comment on above: Performed By: #### C MP #### [address] [address] ALT [Catalytic activity/Vol] 24 U/L Normal 10 - 52 [facility] Comment on above: Result Comment: Arlette ents treated with Sulfasalazine may generate falsely decreased results for ALT. Performed By: #### C MP #### [address] [address] Anion gap [Moles/Vol] 12 mmol/L 10 - 20 [facility] Medicine Work Phone: Comment on above: Performed By: #### C MP #### [address] [address] AST [Catalytic activity/Vol] 21 U/L Normal 9 - 39 [facility] Comment on above: Performed By: #### C MP #### [address] [address] Bilirubin [Mass/Vol] 0.7 mg/dL 0.0 - 1.2 [facility] Medicine Work Phone: Comment on above: Performed By: #### C MP #### [address] [address] Calcium [Mass/Vol] 9.3 mg/dL 8.6 - 10.3 [facility] Work Phone: Comment on above: Performed By: #### C MP #### [address] [address] Chloride [Moles/Vol] 104 mmol/L 98 - 107 [facility] Internal [facility] Work Phone: Comment on above: Performed By: #### C MP #### [address] [address] Creatinine [Mass/Vol] 0.83 mg/dL See Below [facility] Work Phone: Comment on above: Reference Range: 0.5 0 - 1.30 Performed By: #### C MP #### [address] [address] GFR/1.73 sq M.predicted among non-blacks MDRD (S/P/Bld) [Vol rate/Area] 90 mL/min/{1.73_m2} Normal >90 [facility] Comment on above: Result Comment: CALC ULATIONS OF ESTIMATED GFR ARE PERFORMED USING THE 2020 CKD-EPI STUDY REFIT EQUATION WITHOUT THE RACE VARIABLE FOR THE IDMS-TRACEABLE CREATININE METHODS. https://jasn.asnjournals.org/content//ASN.56299 [address]1553 Performed By: #### C MP #### [address] [address] Glucose [Mass/Vol] 132 mg/dL above high threshold 74 - 99 [facility] Internal [facility] Work Phone: Comment on above: Performed By: #### C MP #### [address] [address] HCO3 (Bld) [Moles/Vol] 26 mmol/L Normal 21 - 32 [facility] Comment on above: Performed By: #### C MP #### [address] [address] Potassium [Moles/Vol] 4.7 mmol/L 3.5 - 5.3 [facility] Medicine Work Phone: Comment on above: Performed By: #### C MP #### [address] [address] Protein [Mass/Vol] 7.4 g/dL 6.4 - 8.2 [facility] Work Phone: Comment on above: Performed By: #### C MP #### [address] [address] Sodium [Moles/Vol] 137 mmol/L 136 - 145 [facility] Medicine Work Phone: Comment on above: Performed By: #### C MP #### [address] [address] Urea nitrogen [Mass/Vol] 13 mg/dL 6 - [facility] Work Phone: Comment on above: Performed By: #### C MP #### [address] [address] Hemoglobin A1Con 09-02-2022 Glucose [Mass/Vol] 160 mg/dL [facility] Work Phone: Comment on above: Performed By: #### H BA1E ####[address] [address] HbA1c (Bld) [Mass fraction] 7.2 % Abnormal [facility] Internal [facility] Work Phone: Comment on above: Diagnosis of Diabete s-Adults Non-Diabetic: < or = 5.6% Increased risk for developing diabetes: 5.7-6.4% Diagnostic of diabetes: > or = 6.5%. Monitoring of Diabetes Age (y) Therapeutic Goal (%) Adults: >18 <7.0 Pediatrics: 13-18 <7.5 7-12 <8.0 0- 6 7.5-8.5 [employer]. Diabetes Care 33(S1), Jun 2009. Result Comment: Diag nosis of Diabetes-Adults Non-Diabetic: < or = 5.6% Increased risk for developing diabetes: 5.7-6.4% Diagnostic of diabetes: > or = 6.5% . Monitoring of Diabetes Age (y) Therapeutic Goal (%) Adults: >18 <7.0 Pediatrics: 13-18 <7.5 7-12 <8.0 0- 6 7.5-8.5 [employer]. Diabetes Care 33(S1), Jun 2009. Performed By: #### H BA1E ####[place] [address] [place] [address] Laboratory - Chemistry and C hemistry - challengeon 09-02-2022 Albumin BCP dye [Mass/Vol] 4.3 g/dL 3.4 - 5.0 [facility] Medicine Work Phone: ALT With P-5'-P [Catalytic activity/Vol] 24 U/L 10 - 52 [facility] Work Phone: Comment on above: Patients treated wit h Sulfasalazine may generate falsely decreased results for ALT. AST With P-5'-P [Catalytic activity/Vol] 21 U/L 9 - 39 [facility] Work Phone: CO2 [Moles/Vol] 26 mmol/L 21 - 32 [facility] Internal Medicine Work Phone: No Panel Informationon 09-02 90 {mL/min/1.73m2} >90 [facility] Work Phone: Comment on above: CALCULATIONS OF STEVE MATED GFR ARE PERFORMED USING THE 2020 CKD-EPI STUDY REFIT EQUATION WITHOUT THE RACE VARIABLE FOR THE IDMS-TRACEABLE CREATININE METHODS.https://jasn.asnjournals.org/content/early//A SN.4237938375 Laboratory - Coagulationon 0 08-06-2022 PT Coag (PPP) [Time] 25.9 s above high threshold 8.0 - 11.0 [facility] Work Phone: No Panel Informationon 08-06 2.2 1 above high threshold 1.0 - 1.2 [facility] Work Phone: PTINR - POCTon 08-06-2022 INR Coag (PPP) [Relative time] 2.2 {INR} High 1.0 - 1.2 [facility] Comment on above: Performed By: #### P SAS #### [address] [address] PT Coag (PPP) [Time] 25.9 s High 8.0 - 11.0 [facility] Comment on above: Performed By: #### P SAS #### [address] [address] Laboratory - Coagulationon 0 07-08-2022 PT Coag (PPP) [Time] 25.0 s above high threshold 8.0 - 11.0 [facility] Work Phone: No Panel Informationon 07-08 2.2 1 above high threshold 1.0 - 1.2 [facility] Work Phone: PTINR - POCTon 07-08-2022 INR Coag (PPP) [Relative time] 2.2 {INR} High 1.0 - 1.2 [facility] Comment on above: Performed By: #### P [facility] #### [address] [address] PT Coag (PPP) [Time] 25.0 s High 8.0 - 11.0 [facility] Comment on above: Performed By: #### P SAS #### [address] [address] Laboratory - Coagulationon 1 08-12-2021 PT Coag (PPP) [Time] 35.5 s above high threshold 8.0 - 11.0 [facility] Medicine Work Phone: No Panel Informationon 06-11 3.1 1 above high threshold 1.0 - 1.2 [facility] Work Phone: PTINR - POCTon 06-11-2022 INR Coag (PPP) [Relative time] 3.1 {INR} High 1.0 - 1.2 [facility] Comment on above: Performed By: #### P PTIN #### [facility] [place] [address] PT Coag (PPP) [Time] 35.5 s High 8.0 - 11.0 [facility] Comment on above: Performed By: #### P PTIN #### [facility] [address] [place] [address] IO EKG Electrocardiogram- 12 Leadon 05-14-2022 IO EKG Electrocardiogram- 12 Lead See Scanned Document [facility] Work Phone: Laboratory - Coagulationon 1 07-14-2021 PT Coag (PPP) [Time] 32.5 s above high threshold 8.0 - 11.0 [facility] Work Phone: No Panel Informationon 05-14 2.8 1 above high threshold 1.0 - 1.2 [facility] Work Phone: Office Visit (Internal Medic [...] essential hypertension; CONSTANTINO = N; Sent To: [facility] 1811 Chronic atrial fibrillation, unspecified Renew: Warfarin Sodium 2 MG Oral Tablet; Take as directed Rx By: Neymar Xavier; Dispense: 90 Days ; #:360 Tablet; Refill: 3;For: Chronic atrial fibrillation, unspecified; CONSTANTINO = N; Sent To: [facility]; Last Updated By: Bianca Ambrocio; 05/14/2022 3:09:39 PM DM2 (diabetes mellitus, type 2) Renew: Glimepiride 2 MG Oral Tablet; Take 1 tablet daily Rx By: Neymar Xavier; Dispense: 0 Days ; #:90 Tablet; Refill: 3;For: DM2 (diabetes mellitus, type 2); CONSTANTINO = N; Sent To: [facility]; Last Updated By: Bianca Ambrocio; 05/14/2022 3:09:39 PM Renew: metFORMIN HCl - 500 MG Oral Tablet; TAKE 2 TABLET Twice daily Rx By: Neymar Xavier; Dispense: 0 Days ; #:360 Tablet; Refill: 3;For: DM2 (diabetes mellitus, type 2); CONSTANTINO = N; Sent To: [facility]; Last Updated By: Bianca Ambrocio; 05/14/2022 3:09:39 PM Hypercholesterolemia Stop: Simvastatin 20 MG Oral Tablet Rx By: Neymar Xavier; Dispense: 90 Days ; #:90 Tablet; Refill: 3;For: Hypercholesterolemia; CONSTANTINO = N; Sent To: [facility] Start: Atorvastatin Calcium 40 MG Oral Tablet (Lipitor); TAKE 1 TABLET AT BEDTIME Rx By: Neymar Xavier; Dispense: 90 Days ; #:90 Tablet; Refill: 3;For: Hypercholesterolemia; CONSTANTINO = N; Sent To: [facility] 1811 Muscle cramp Start: Magnesium Oxide 400 (240 Mg) MG Oral Tablet; TAKE 1 TABLET BY MOUTH EVERY DAY Rx By: Neymar Xavier; Dispense: 30 Days ; #:30 Tablet; Refill: 11;For: Muscle cramp; CONSTANTINO = N; Sent To: [facility] 1811 Patient Discussion/Summary F/U 4 MO [...] (562.10) (K57 (more content not included)... Normal [employer] [facility]-20[facility] INR Coag (PPP) [Relative time] 2.8 {INR} High 1.0 - 1.2 [facility] Comment on above: Performed By: #### P [facility] #### [address] [address] PT Coag (PPP) [Time] 32.5 s High 8.0 - 11.0 [facility] Comment on above: Performed By: #### P [facility] #### [address] [address] Tobacco Screening.on 022 Fall risk assessment a) No falls within the last year [facility] Medicine Work Phone: Tobacco use status CPHS b) No [facility] Work Phone: COMPREHENSIVE PANELon 2021 Albumin [Mass/Vol] 4.2 g/dL Normal 3.4 - 5.0 [facility] Comment on above: Performed By: #### C MP ####[address] [address] ALP [Catalytic activity/Vol] 50 U/L Normal 33 - 136 [facility] Comment on above: Performed By: #### C MP ####[address] [address] ALT [Catalytic activity/Vol] 17 U/L Normal 10 - 52 [facility] Comment on above: Result Comment: Arlette ents treated with Sulfasalazine may generate falsely decreased results for ALT. Performed By: #### C MP ####[address] [address] Anion gap [Moles/Vol] 10 mmol/L Normal 10 - 20 [facility] Comment on above: Performed By: #### C MP ####[address] [address] AST [Catalytic activity/Vol] 19 U/L Normal 9 - 39 [facility] Comment on above: Performed By: #### C MP ####[address] [address] Bilirubin [Mass/Vol] 0.8 mg/dL Normal 0.0 - 1.2 [facility] Comment on above: Performed By: #### C MP ####[address] [address] Calcium [Mass/Vol] 9.0 mg/dL Normal 8.6 - 10.3 [facility] Comment on above: Performed By: #### C MP ####[address] [address] Chloride [Moles/Vol] 103 mmol/L Normal 98 - 107 [facility] Comment on above: Performed By: #### C MP ####[address] [address] Creatinine [Mass/Vol] 0.95 mg/dL Normal 0.50 - 1.30 [facility] Comment on above: Performed By: #### C MP ####[address] [address] GFR/1.73 sq M.predicted among non-blacks MDRD (S/P/Bld) [Vol rate/Area] 83 mL/min/{1.73_m2} Normal >90 [facility] Comment on above: Result Comment: CALC ULATIONS OF ESTIMATED GFR ARE PERFORMED USING THE 2020 CKD-EPI STUDY REFIT EQUATION WITHOUT THE RACE VARIABLE FOR THE IDMS-TRACEABLE CREATININE METHODS. https://jasn.asnjournals.org/content/early//ASN.80335 09182 Performed By: #### C MP ####[address] [address] Glucose [Mass/Vol] 133 mg/dL High 74 - 99 [facility] Comment on above: Performed By: #### C MP ####[address] [address] HCO3 (Bld) [Moles/Vol] 29 mmol/L Normal 21 - 32 [facility] Comment on above: Performed By: #### C MP ####[address] [address] Potassium [Moles/Vol] 4.4 mmol/L Normal 3.5 - 5.3 [facility] Comment on above: Performed By: #### C MP ####[address] [address] Protein [Mass/Vol] 7.3 g/dL Normal 6.4 - 8.2 [facility] Comment on above: Performed By: #### C MP ####[address] [address] Sodium [Moles/Vol] 138 mmol/L Normal 136 - 145 [facility] Comment on above: Performed By: #### C MP ####[address] [address] Urea nitrogen [Mass/Vol] 16 mg/dL Normal 6 - 23 [facility] Comment on above: Performed By: #### C MP ####[address] [address] HEMOGLOBIN A1Con 05-05-2022 Glucose [Mass/Vol] 154 mg/dL Normal [facility] Comment on above: Performed By: #### H BA1E #### [address] [address] HbA1c (Bld) [Mass fraction] 7.0 % Abnormal [facility] Comment on above: Result Comment: Diag nosis of Diabetes-Adults Non-Diabetic: < or = 5.6% Increased risk for developing diabetes: 5.7-6.4% Diagnostic of diabetes: > or = 6.5% . Monitoring of Diabetes Age (y) Therapeutic Goal (%) Adults: >18 <7.0 Pediatrics: 13-18 <7.5 7-12 <8.0 0- 6 7.5-8.5 [employer]. Diabetes Care 33(S1), Jun 2009. Performed By: #### H BA1E #### [address] [address] Hemoglobin A1Con 05-05-2022 Glucose [Mass/Vol] 154 mg/dL [facility] Internal Medicine Work Phone: HbA1c (Bld) [Mass fraction] 7.0 % Abnormal [facility] Medicine Work Phone: Comment on above: Diagnosis of Diabete s-Adults Non-Diabetic: < or = 5.6% Increased risk for developing diabetes: 5.7-6.4% Diagnostic of diabetes: > or = 6.5%. Monitoring of Diabetes Age (y) Therapeutic Goal (%) Adults: >18 <7.0 Pediatrics: 13-18 <7.5 7-12 <8.0 0- 6 7.5-8.5 [employer]. Diabetes Care 33(S1), Jun 2009. Laboratory - Chemistry and C hemistry - challengeon 05-05-2022 Albumin BCP dye [Mass/Vol] 4.2 g/dL 3.4 - 5.0 [facility] Medicine Work Phone: ALP [Catalytic activity/Vol] 50 U/L 33 - 136 [facility] Work Phone: ALT With P-5'-P [Catalytic activity/Vol] 17 U/L 10 - 52 [facility] Work Phone: Comment on above: Patients treated wit h Sulfasalazine may generate falsely decreased results for ALT. Anion gap [Moles/Vol] 10 mmol/L 10 - 20 [facility] Medicine Work Phone: AST With P-5'-P [Catalytic activity/Vol] 19 U/L 9 - 39 [facility] Work Phone: Bilirubin [Mass/Vol] 0.8 mg/dL 0.0 - 1.2 [facility] Internal Medicine Work Phone: Calcium [Mass/Vol] 9.0 mg/dL 8.6 - 10.3 [facility] Medicine Work Phone: Chloride [Moles/Vol] 103 mmol/L 98 - 107 [facility] Work Phone: CO2 [Moles/Vol] 29 mmol/L 21 - 32 [facility] Internal Medicine Work Phone: Creatinine [Mass/Vol] 0.95 mg/dL See Below [facility] Internal [facility] Work Phone: Comment on above: Reference Range: 0.5 0 - 1.30 Glucose [Mass/Vol] 133 mg/dL above high threshold 74 - 99 [facility] Internal Medicine Work Phone: Potassium [Moles/Vol] 4.4 mmol/L 3.5 - 5.3 [facility] Work Phone: Protein [Mass/Vol] 7.3 g/dL 6.4 - 8.2 [facility] Work Phone: Sodium [Moles/Vol] 138 mmol/L 136 - 145 [facility] Work Phone: Urea nitrogen [Mass/Vol] 16 mg/dL 6 - 23 [facility] Work Phone: No Panel Informationon 05-05 83 {mL/min/1.73m2} >90 [facility] Work Phone: Comment on above: CALCULATIONS OF STEVE MATED GFR ARE PERFORMED USING THE 2020 CKD-EPI STUDY REFIT EQUATION WITHOUT THE RACE VARIABLE FOR THE IDMS-TRACEABLE CREATININE METHODS.https://jasn.asnjournals.org/content//A SN.5536510992 Laboratory - Coagulationon 1 PT Coag (PPP) [Time] 24.2 s above high threshold 8.0 - 11.0 [facility] Work Phone: No Panel Informationon 04-16 2.1 1 above high threshold 1.0 - 1.2 [facility] Work Phone: PTINR - POCTon 04-16-2022 INR Coag (PPP) [Relative time] 2.1 {INR} High 1.0 - 1.2 [facility] Comment on above: Performed By: #### P SAS #### [address] [address] PT Coag (PPP) [Time] 24.2 s High 8.0 - 11.0 [facility] Comment on above: Performed By: #### P SAS #### [address] [address] Laboratory - Coagulationon 1 PT Coag (PPP) [Time] 19.7 s above high threshold 8.0 - 11.0 [facility] Internal Medicine Work Phone: No Panel Informationon 04-01 1.7 1 above high threshold 1.0 - 1.2 [facility] Medicine Work Phone: PTINR - POCTon 04-01-2022 INR Coag (PPP) [Relative time] 1.7 {INR} High 1.0 - 1.2 [facility] Comment on above: Performed By: #### P SASC #### [address] [address] PT Coag (PPP) [Time] 19.7 s High 8.0 - 11.0 [facility] Comment on above: Performed By: #### P SASC #### [place] [id number] Laboratory - Coagulationon 0 03-11-2022 PT Coag (PPP) [Time] 38.8 s above high threshold 8.0 - 11.0 [facility] Internal Medicine Work Phone: No Panel Informationon 03-11 3.4 1 above high threshold 1.0 - 1.2 [facility] Medicine Work Phone: PTINR - POCTon 03-11-2022 INR Coag (PPP) [Relative time] 3.4 {INR} High 1.0 - 1.2 [facility] Comment on above: Performed By: #### P PTIN #### [facility] [address] [address] PT Coag (PPP) [Time] 38.8 s High 8.0 - 11.0 [facility] Comment on above: Performed By: #### P PTIN #### [facility] [address] [address] Office Visit (Internal Medic ine)on 01-08-2022 Follow-up [...] hypertension; CONSTANTINO = N; Verified Transmission to [id number]; Last Updated By: Chel Ha; 01/08/2022 1:54:09 PM DM2 (diabetes mellitus, type 2) Comprehensive Metabolic Panel; Status:Active - Retrospective By Protocol Authorization; Requested for:11May2022; Perform:Lab Services - Lab To Draw (Blood Test); Due:[id number]; Last Updated By:Regina Lane; 01/08/2022 2:37:39 PM;Ordered; For:DM2 (diabetes mellitus, type 2); Ordered By:Neymar Xavier; Hemoglobin A1C; Status:Active - Retrospective By Protocol Authorization; Requested for:11May2022; Perform:Lab Services - Lab To Draw (Blood Test); Due:[id number]; Last Updated By:Regina Lane; 01/08/2022 2:37:39 PM;Ordered; [...] Denies alcohol (more content not included)... Normal [facility] Tobacco Screening.on 022 Adult depression screening assessment No [facility] Internal Medicine Work Phone: Fall risk assessment a) No falls within the last year [facility] Work Phone: Tobacco use status CPHS b) No [facility] Medicine Work Phone: COMPREHENSIVE PANELon 2021 Albumin [Mass/Vol] 4.3 g/dL Normal 3.4 - 5.0 [facility] Comment on above: Performed By: #### C MP #### [address] [address] ALP [Catalytic activity/Vol] 49 U/L Normal 33 - 136 [facility] Comment on above: Performed By: #### C MP #### [address] [address] ALT [Catalytic activity/Vol] 17 U/L Normal 10 - 52 [facility] Comment on above: Result Comment: Arlette ents treated with Sulfasalazine may generate falsely decreased results for ALT. Performed By: #### C MP #### [address] [address] Anion gap [Moles/Vol] 11 mmol/L Normal 10 - 20 [facility] Comment on above: Performed By: #### C MP #### [address] [address] AST [Catalytic activity/Vol] 16 U/L Normal 9 - 39 [facility] Comment on above: Performed By: #### C MP #### [address] [address] Bilirubin [Mass/Vol] 0.7 mg/dL Normal 0.0 - 1.2 [facility] Comment on above: Performed By: #### C MP #### [address] [address] Calcium [Mass/Vol] 9.2 mg/dL Normal 8.6 - 10.3 [facility] Comment on above: Performed By: #### C MP #### [address] [address] Chloride [Moles/Vol] 104 mmol/L Normal 98 - 107 [facility] Comment on above: Performed By: #### C MP #### [address] [address] Creatinine [Mass/Vol] 0.81 mg/dL Normal 0.50 - 1.30 [facility] Comment on above: Performed By: #### C MP #### [address] [address] eGFR MALE >90 Normal >90 [facility] Comment on above: Result Comment: CALC ULATIONS OF ESTIMATED GFR ARE PERFORMED USING THE 2020 CKD-EPI STUDY REFIT EQUATION WITHOUT THE RACE VARIABLE FOR THE IDMS-TRACEABLE CREATININE METHODS. https://jasn.asnjournals.org/content/early/ASN.20565 [address] Performed By: #### C MP #### [address] [address] Glucose [Mass/Vol] 126 mg/dL High 74 - 99 [facility] Comment on above: Performed By: #### C MP #### [address] [address] HCO3 (Bld) [Moles/Vol] 29 mmol/L Normal 21 - 32 [facility] Comment on above: Performed By: #### C MP #### [address] [address] Potassium [Moles/Vol] 4.4 mmol/L Normal 3.5 - 5.3 [facility] Comment on above: Performed By: #### C MP #### [address] [address] Protein [Mass/Vol] 7.5 g/dL Normal 6.4 - 8.2 [facility] Comment on above: Performed By: #### C MP #### [address] [address] Sodium [Moles/Vol] 140 mmol/L Normal 136 - 145 [facility] Comment on above: Performed By: #### C MP #### [address] [address] Urea nitrogen [Mass/Vol] 12 mg/dL Normal 6 - 23 [facility] Comment on above: Performed By: #### C MP #### [address] [address] HEMOGLOBIN A1Con 01-01-2022 Glucose [Mass/Vol] 160 mg/dL Normal [facility] Comment on above: Performed By: #### H BA1E #### [address] [address] HbA1c (Bld) [Mass fraction] 7.2 % Abnormal [facility] Comment on above: Result Comment: Diag nosis of Diabetes-Adults Non-Diabetic: < or = 5.6% Increased risk for developing diabetes: 5.7-6.4% Diagnostic of diabetes: > or = 6.5% . Monitoring of Diabetes Age (y) Therapeutic Goal (%) Adults: >18 <7.0 Pediatrics: 13-18 <7.5 7-12 <8.0 0- 6 7.5-8.5 [employer]. Diabetes Care 33(S1), Jun 2009. Performed By: #### H BA1E #### [address] [place] [address] Hemoglobin A1Con 01-01-2022 Glucose [Mass/Vol] 160 mg/dL [facility] Medicine Work Phone: HbA1c (Bld) [Mass fraction] 7.2 % Abnormal [facility] Work Phone: Comment on above: Diagnosis of Diabete s-Adults Non-Diabetic: < or = 5.6% Increased risk for developing diabetes: 5.7-6.4% Diagnostic of diabetes: > or = 6.5%. Monitoring of Diabetes Age (y) Therapeutic Goal (%) Adults: >18 <7.0 Pediatrics: 13-18 <7.5 7-12 <8.0 0- 6 7.5-8.5 [employer]. Diabetes Care 33(S1), Jun 2009. LIPID PANEL (CORONARY RISK 2 )on 01-01-2022 Cholesterol [Mass/Vol] 154 mg/dL Normal 0 - 199 [facility] Comment on above: Result Comment: . AGE [...] dosing. Performed By: #### L IPID #### [address] [address] Cholesterol in HDL [Mass/Vol] 43.0 mg/dL Normal [facility] Comment on above: Result Comment: . AGE VERY LOW LOW NORMAL HIGH 0-19 Y < 35 < 40 40-45 ---- 20-24 Y ---- < 40 >45 ---- >24 Y ---- < 40 40-60 >60 . Performed By: #### L IPID #### [address] [address] Cholesterol in LDL [Mass/Vol] 68 mg/dL Normal 0 - 99 [facility] Comment on above: Result Comment: . NEAR BORD AGE DESIRABLE OPTIMAL HIGH HIGH VERY HIGH 0-19 Y 0 - 109 --- 110-129 >/= 130 ---- 20-24 Y 0 - 119 --- 120-159 >/= 160 ---- >24 Y 0 - 99 100-129 130-159 160-189 >/=190 . Performed By: #### L IPID #### [address] [address] Cholesterol in VLDL [Mass/Vol] 43 mg/dL High 0 - 40 [facility] Comment on above: Performed By: #### L IPID #### [address] [address] Cholesterol.total/Chol esterol in HDL [Mass ratio] 3.6 {ratio} Normal [facility] Comment on above: Result Comment: REF VALUES DESIRABLE < 3.4 HIGH RISK > 5.0 Performed By: #### L IPID #### [address] [address] NON-HDL CHOLESTEROL 111 mg/dL Normal [facility] Comment on above: Result Comment: AGE DESIRABLE BORDERLINE HIGH HIGH VERY HIGH 0-19 Y 0 - 119 120 - 144 >/= 145 >/= 160 20-24 Y 0 - 149 150 - 189 >/= 190 ---- >24 Y 30 MG/DL ABOVE LDL CHOLESTEROL GOAL . Performed By: #### L IPID #### [address] [address] Triglyceride [Mass/Vol] 217 mg/dL High 0 - 149 [facility] Comment on above: Result Comment: . AGE [...] dosing. Performed By: #### L IPID #### [facility] [address] [place] [id number] Laboratory - Chemistry and C hemistry - challengeon 01-01-2022 Albumin BCP dye [Mass/Vol] 4.3 g/dL 3.4 - 5.0 [facility] Internal [facility] Work Phone: [phone] ALP [Catalytic activity/Vol] 49 U/L 33 - 136 [facility] Internal [facility] Work Phone: [phone] ALT With P-5'-P [Catalytic activity/Vol] 17 U/L 10 - 52 [facility] Work Phone: [phone] Comment on above: Patients treated wit h Sulfasalazine may generate falsely decreased results for ALT. Anion gap [Moles/Vol] 11 mmol/L 10 - 20 [facility] Work Phone: [phone] AST With P-5'-P [Catalytic activity/Vol] 16 U/L 9 - 39 [facility] Work Phone: [phone] Bilirubin [Mass/Vol] 0.7 mg/dL 0.0 - 1.2 [facility] Internal [facility] Work Phone: [phone] Calcium [Mass/Vol] 9.2 mg/dL 8.6 - 10.3 [facility] Work Phone: [phone] Chloride [Moles/Vol] 104 mmol/L 98 - 107 [facility] Internal Medicine Work Phone: [phone] CO2 [Moles/Vol] 29 mmol/L 21 - 32 [facility] Internal Medicine Work Phone: [phone] Creatinine [Mass/Vol] 0.81 mg/dL See Below [facility] Work Phone: [phone] Comment on above: Reference Range: 0.5 0 - 1.30 Glucose [Mass/Vol] 126 mg/dL above high threshold 74 - 99 [facility] Internal Medicine Work Phone: [phone] Potassium [Moles/Vol] 4.4 mmol/L 3.5 - 5.3 [facility] Internal [facility] Work Phone: Protein [Mass/Vol] 7.5 g/dL 6.4 - 8.2 [facility] Work Phone: Sodium [Moles/Vol] 140 mmol/L 136 - 145 [facility] Work Phone: Urea nitrogen [Mass/Vol] 12 mg/dL 6 - 23 [facility] Work Phone: Lipid Panelon 01-01-2022 Cholesterol [Mass/Vol] 154 mg/dL 0 - 199 [facility] Work Phone: Comment on above: . [...] dosing. Cholesterol in HDL [Mass/Vol] 43.0 mg/dL [facility] Work Phone: Comment on above: . AGE VERY LOW LOW N ORMAL HIGH 0-19 Y < 35 < 40 40-45 ---- 20-24 Y ---- < 40 >45 ---- >24 Y ---- < 40 40-60 >60. Cholesterol in LDL [Mass/Vol] 68 mg/dL 0 - 99 [facility] Work Phone: Comment on above: . NEAR BORD AGE KEVIN RABLE OPTIMAL HIGH HIGH VERY HIGH 0-19 Y 0 - 109 --- 110-129 >/= 130 ---- 20-24 Y 0 - 119 --- 120-159 >/= 160 ---- >24 Y 0 - 99 100-129 130-159 160-189 >/=190. Cholesterol non HDL [Mass/Vol] 111 mg/dL [facility] Work Phone: Comment on above: AGE DESIRABLE BORDER LINE HIGH HIGH VERY HIGH 0-19 Y 0 - 119 120 - 144 >/= 145 >/= 160 20-24 Y 0 - 149 150 - 189 >/= 190 ---- >24 Y 30 MG/DL ABOVE LDL CHOLESTEROL GOAL. Cholesterol.total/Chol esterol in HDL [Mass ratio] 3.6 {ratio} [facility] Work Phone: Comment on above: REF VALUESDESIRABLE < 3.4HIGH RISK > 5.0 Triglyceride [Mass/Vol] 217 mg/dL above high threshold 0 - 149 [facility] Work Phone: Comment on above: . [...] mg/dL above high threshold 0 - 40 [facility] Work Phone: No Panel Informationon 01-01 >90 >90 [facility] Work Phone: Comment on above: CALCULATIONS OF STEVE MATED GFR ARE PERFORMED USING THE 2020 CKD-EPI STUDY REFIT EQUATION WITHOUT THE RACE VARIABLE FOR THE IDMS-TRACEABLE CREATININE METHODS.https://jasn.asnjournals.org/content/early/A SN.3244830767 PROSTATE SPEC.AG,SCREENon PROSTATE SPEC.AG,SCREEN 2.06 ng/mL Normal 0.00 - 4.00 [facility] Comment on above: Result Comment: The FDA requires that the method used for PSA assay be reported to the physician. Values obtained with different assay methods must not be used interchangeably. This test was performed at [facility] using the Access Hybritech PSA assay is a two-site immunoenzymatic sandwich assay. The assay is approved for measurement of prostate-specific antigen (PSA)in serum and may be used in conjunction with a digital rectal examination in men 50 years and older as an aid in detection of prostate cancer. 6-Ruchj-zzltalxlt inhibitors (e.g. Proscar, Finasteride, Avodart, Dutasteride and Yessy) for the treatment of BPH have been shown to lower PSA levels by an average of 50% after 6 months of treatment. Performed By: #### P SASC #### [address] [address] Prostate Spec.Ag, Screenon 0 01-01-2022 Prostate specific Ag [Mass/Vol] 2.06 ng/mL See Below [facility] Work Phone: Comment on above: Reference Range: 0.0 0 - 4.00The FDA requires that the method used for PSA assay be reported to the physician. Values obtained with different assay methods must not be used interchangeably. This testwas performed at [facility] using the Access Hybritech PSA assay is a two-site immunoenzymatic sandwich assay. The assay is approved for measurement of prostate-specific antigen (PSA)in serum and may be used in conjunction with a digital rectal examination in men 50 years and older as an aid in detection of prostate cancer.6-Gujjs-ihxahdvmq inhibitors (e.g. Proscar, Finasteride, Avodart, Dutasteride and Yessy) for the treatment of BPH have been shown to lower PSA levels by an average of 50% after 6 months of treatment. SEDIMENTATION RATE, ERYTHROC YTEon 01-01-2022 SEDIMENTATION RATE, ERYTHROCYTE 31 mm/h High 0 - 20 [facility] Comment on above: Performed By: #### E SRWS #### [address] [address] Sedimentation Rate, Erythroc yteon 01-01-2022 ESR (Bld) [Velocity] 31 mm/h above high threshold 0 - 20 [facility] Work Phone: Laboratory - Coagulationon 0 12-23-2021 PT Coag (PPP) [Time] 29.9 s above high threshold 8.0 - 11.0 [facility] Work Phone: No Panel Informationon 12-23 2.6 1 above high threshold 1.0 - 1.2 [facility] Work Phone: Laboratory - Coagulationon 0 11-18-2021 PT Coag (PPP) [Time] 31.8 s above high threshold 8.0 - 11.0 [facility] Work Phone: No Panel Informationon 11-18 2.8 1 above high threshold 1.0 - 1.2 [facility] Work Phone: Laboratory - Coagulationon 0 10-21-2021 PT Coag (PPP) [Time] 25.0 s above high threshold 8.0 - 11.0 [facility] Work Phone: No Panel Informationon 10-21 2.2 1 above high threshold 1.0 - 1.2 [facility] Work Phone: Laboratory - Coagulationon 0 10-14-2021 PT Coag (PPP) [Time] 14.1 s above high threshold 8.0 - 11.0 [facility] Work Phone: No Panel Informationon 10-14 1.2 1 1.0 - 1.2 [facility] Work Phone: Colonoscopyon 10-10-2021 Colonoscopy PATIENTNAME Patient Name: Hattie Valderrama EXAMDATE Procedure Date: 10/10/2021 10:42 AM PATIENTID PATIENTACCOUNTNUM PATIENTDOB Date of : 1945 ADMITTYPE Admit Type: Outpatient PATIENTROOM Site: [place] [address] ETHNICITY Ethnicity: Not or RACE Race: White PROVDR Attending MD: Neymar Xavier MD ENDOPROCEDURENAME Procedure: Colonoscopy INDICATION Indications: High risk colon cancer surveillance: Personal history of colonic polyps PRIMARYPROVIDER Providers: Neymar Xavier MD (Doctor), Chloe Kessler RN (Nurse), Jennifer Ramos, Flight Operations Coordinator EDREFPROVIDER Referring: Neymar Xavier MD CURRENT_MEDS Medicines: [...] scheduled. CPT_CODES Procedure Code(s): --- Professional --- 57645, Colonoscopy, flexible; diagnostic, including collection of specimen(s) by brushing or washing, when performed (separate procedure) G0500, Moderate sedation services provided by the same physician or other qualified health childcare attendant performing a gastrointestinal endoscopic service that sedation supports, requiring the presence of an independent trained observer to assist in the monitoring of the patient's level of consciousness and physiological status; initial 15 minutes of intra-service time; patient age 5 years or older (additional time may be reported with 90684, as appropriate) ICD_CODES Diagnosis Code(s): --- Professional --- Z12.11, Encounter for screening for malignant neoplasm of colon Z86.010, Personal history of colonic polyps K57.30, Diverticulosis of large intestine without perforation or abscess without bleeding CODINGSTMT CPT copyright 2020 [employer]. All rights reserved. The codes documented in this report are preliminary and upon food service hotel runner review may be revised to meet current compliance requirements. ATTDRPART Attending Participation: I personally performed the entire procedure. SIGNATURENAME Neymar Xavier MD SIGNATUREDATE 10/10/2021 11:06:16 AM SIGNATUREONFILEIND This report has been signed electronically. NUMADDENDA Number of Addenda: 0 INITIATEDON Note Initiated On: 10/10/2021 10:4 (more content not included)... Normal [facility] No Panel Informationon 10-10 [email or web address] {[email or web address]} [facility] Work Phone: CORONAVIRUS 2019, SCREEN ASY MPTOMATICon 10-08-2021 SARS-CoV-2 (COVID-19) RNA JEREMI+probe Ql (Unsp spec) Not detected Normal Not Detected [facility] Comment on above: Result Comment: . This [...] patient management decisions. Fact sheet for providers: https://www.fda.gov/media/933600/download Fact sheet for patients: https://www.fda.gov/media/500181/download This test has received FDA Emergency Use Authorization (EUA) and has been verified by [facility] ([facility]). This test is only authorized for the duration of time that circumstances exist to justify the authorization of the emergency use of in vitro diagnostic tests for the detection of SARS-CoV-2 virus and/or diagnosis of COVID-19 infection under section 564(b)(1) of the Act, 21 U.S.C. 360bbb-3(b)(1), unless the authorization is terminated or revoked sooner. [facility] is certified under CLIA-88 as qualified to perform high complexity testing. Testing is performed in the [facility] laboratories located at [address] [place] [address]. Performed By: #### C OVSC #### [address] [place] [address] Covid 19 Resultson 2 SARS-CoV-2 (COVID-19) RNA [...] You may also be contacted by the [facility] to see if any of your close [...] or Naproxen (Aleve) can also be used. Puxh-jya-svtpmxe cough and cold medicines can be used according to the instructions on the package. Some rxid-tww-dgfzoqg medicines also contain acetaminophen. Make sure you [...] water are not available, use alcohol-based hand material control manager. Avoid touching your eyes, nose, and mouth [...] 24 donovan (more content not included)... Normal [facility] CORONAVIRUS 2019, SCREEN ASY MPTOMATICon 10-07-2021 Lab Specimen Source Nasal, Nasopharyngeal Normal [facility] Comment on above: Performed By: #### C OVSC #### [facility] [address] [place] [address] Coronavirus 2019 RNA by PCR, Screening Asymptomticon 10-07-2021 Coronavirus 2019 RNA by PCR, Screening Asymptomtic Not detected Normal See Below [facility] Medicine Work Phone: Comment on [...] make patient management decisions.Fact sheet for providers: https://www.fda.gov/media/466643/downloadFact sheet for patients: https://www.fda.gov/media/740681/downloadThis test has received FDA Emergency Use Authorization (EUA) and has been verified by [facility] ([facility]). This test is only authorized for the duration of time that circumstances exist to justify the authorization of the emergency use of in vitro diagnostic tests for the detection of SARS-CoV-2 virus and/or diagnosis of COVID-19 infection under section 564(b)(1) of the Act, 21 U.S.C. 360bbb-3(b)(1), unless the authorization is terminated or revoked sooner. [facility] is certified under CLIA-88 as qualified to perform high complexity testing. Testing is performed in the [facility] laboratories located at [address] [place] [address]. Laboratory - Coagulationon 0 09-30-2021 PT Coag (PPP) [Time] 32.5 s above high threshold 8.0 - 11.0 [facility] Internal [facility] Work Phone: No Panel Informationon 09-30 2.9 1 above high threshold 1.0 - 1.2 [facility] Work Phone: Laboratory - Coagulationon 0 3-15-2022 PT Coag (PPP) [Time] 25.1 s above high threshold 8.0 - 11.0 [facility] Medicine Work Phone: Medicare Annual Wellness Vis lilly 09-10-2021 Medicare Annual Wellness Visit *Chief Complaint [...] Surgical History History of Colonoscopy Managed By: Tavallaee, Neymar (Internal Medicine) DIVERTICULOSIS, H/O COLON POLYPS, REPEAT [...] high threshold 1.0 - 1.2 [facility] Work Phone: Tobacco Screening.on 022 Fall risk assessment a) No falls within the last year [facility] Medicine Work Phone: Tobacco use status CPHS b) No [facility] Medicine Work Phone: Coronavirus 2019 RNA by PCR, Screening Asymptomticon 09-02-2021 Coronavirus 2019 RNA by PCR, Screening Asymptomtic Not detected Normal See Below [facility] Work Phone: Comment on above: SOURCE: Nasal, [...] make patient management decisions.Fact sheet for providers: https://www.fda.gov/media/783664/downloadFact sheet for patients: https://www.fda.gov/media/399456/downloadThis test has received FDA Emergency Use Authorization (EUA) and has been verified by [facility] ([facility]). This test is only authorized for the duration of time that circumstances exist to justify the authorization of the emergency use of in vitro diagnostic tests for the detection of SARS-CoV-2 virus and/or diagnosis of COVID-19 infection under section 564(b)(1) of the Act, 21 U.S.C. 360bbb-3(b)(1), unless the authorization is terminated or revoked sooner. [facility] is certified under CLIA-88 as qualified to perform high complexity testing. Testing is performed in the [facility] laboratories located at [address] [place] [address]. Hemoglobin A1Con 09-02-2021 Glucose [Mass/Vol] 151 mg/dL [facility] Internal Medicine Work Phone: HbA1c (Bld) [Mass fraction] 6.9 % Abnormal [facility] Work Phone: Comment on above: Diagnosis of Diabete s-Adults Non-Diabetic: < or = 5.6% Increased risk for developing diabetes: 5.7-6.4% Diagnostic of diabetes: > or = 6.5%. Monitoring of Diabetes Age (y) Therapeutic Goal (%) Adults: >18 <7.0 Pediatrics: 13-18 <7.5 7-12 <8.0 0- 6 7.5-8.5 [place] [employer]. Diabetes Care 33(S1), Jun 2009. Laboratory - Chemistry and C hemistry - challengeon 09-02-2021 Albumin BCP dye [Mass/Vol] 4.3 g/dL 3.4 - 5.0 [facility] Internal Medicine Work Phone: ALP [Catalytic activity/Vol] 52 U/L 33 - 136 [facility] Internal Medicine Work Phone: ALT With P-5'-P [Catalytic activity/Vol] 17 U/L 10 - 52 [facility] Work Phone: Comment on above: Patients treated wit h Sulfasalazine may generate falsely decreased results for ALT. Anion gap [Moles/Vol] 10 mmol/L 10 - 20 [facility] Work Phone: AST With P-5'-P [Catalytic activity/Vol] 18 U/L 9 - 39 [facility] Work Phone: [phone] Bilirubin [Mass/Vol] 0.5 mg/dL 0.0 - 1.2 [facility] Internal [facility] Work Phone: Calcium [Mass/Vol] 9.3 mg/dL 8.6 - 10.3 [facility] Work Phone: Chloride [Moles/Vol] 102 mmol/L 98 - 107 [facility] Work Phone: CO2 [Moles/Vol] 31 mmol/L 21 - 32 [facility] Internal Medicine Work Phone: Creatinine [Mass/Vol] 0.83 mg/dL See Below [facility] Work Phone: Comment on above: Reference Range: 0.5 0 - 1.30 Glucose [Mass/Vol] 122 mg/dL above high threshold 74 - 99 [facility] Work Phone: Potassium [Moles/Vol] 4.4 mmol/L 3.5 - 5.3 [facility] Work Phone: Protein [Mass/Vol] 7.5 g/dL 6.4 - 8.2 [facility] Work Phone: Sodium [Moles/Vol] 139 mmol/L 136 - 145 [facility] Work Phone: Urea nitrogen [Mass/Vol] 14 mg/dL 6 - 23 [facility] Work Phone: No Panel Informationon 09-02 >90 >90 [facility] Work Phone: Comment on above: CALCULATIONS OF STEVE MATED GFR ARE PERFORMED USING THE 2020 CKD-EPI STUDY REFIT EQUATION WITHOUT THE RACE VARIABLE FOR THE IDMS-TRACEABLE CREATININE METHODS.https://jasn.asnjournals.org/content//A SN.1437009545 Laboratory - Coagulationon 0 08-21-2021 PT Coag (PPP) [Time] 37.7 s above high threshold 8.0 - 11.0 [facility] Work Phone: No Panel Informationon 08-21 3.3 1 above high threshold 1.0 - 1.2 [facility] Work Phone: Laboratory - Coagulationon 0 08-07-2021 PT Coag (PPP) [Time] 38.7 s above high threshold 8.0 - 11.0 [facility] Work Phone: No Panel Informationon 08-07 3.4 1 above high threshold 1.0 - 1.2 [facility] Work Phone: Laboratory - Coagulationon 0 07-09-2021 PT Coag (PPP) [Time] 30.9 s above high threshold 8.0 - 11.0 [facility] Work Phone: No Panel Informationon 07-09 2.7 1 above high threshold 1.0 - 1.2 [facility] Work Phone: Laboratory - Coagulationon 1 08-12-2020 PT Coag (PPP) [Time] 21.8 s above high threshold 8.0 - 11.0 [facility] Work Phone: No Panel Informationon 06-11 1.9 1 above high threshold 1.0 - 1.2 [facility] Work Phone: Laboratory - Coagulationon 1 07-14-2020 PT Coag (PPP) [Time] 35.5 s above high threshold 8.0 - 11.0 [facility] Work Phone: No Panel Informationon 05-14 3.1 1 above high threshold 1.0 - 1.2 [facility] Work Phone: Tobacco Screening.on 021 Fall risk assessment a) No falls within the last year [facility] Work Phone: Tobacco use status CPHS b) No [facility] Work Phone: Hemoglobin A1Con 05-07-2021 Glucose [Mass/Vol] 160 mg/dL [facility] Medicine Work Phone: HbA1c (Bld) [Mass fraction] 7.2 % Abnormal [facility] Work Phone: Comment on above: Diagnosis of Diabete s-Adults Non-Diabetic: < or = 5.6% Increased risk for developing diabetes: 5.7-6.4% Diagnostic of diabetes: > or = 6.5%. Monitoring of Diabetes Age (y) Therapeutic Goal (%) Adults: >18 <7.0 Pediatrics: 13-18 <7.5 7-12 <8.0 0- 6 7.5-8.5 [place] [employer]. Diabetes Care 33(S1), Jun 2009. Laboratory - Chemistry and C hemistry - challengeon 05-07-2021 Albumin BCP dye [Mass/Vol] 4.1 g/dL 3.4 - 5.0 [facility] Work Phone: ALP [Catalytic activity/Vol] 59 U/L 33 - 136 [facility] Work Phone: ALT With P-5'-P [Catalytic activity/Vol] 21 U/L 10 - 52 [facility] Work Phone: Comment on above: Patients treated wit h Sulfasalazine may generate falsely decreased results for ALT. Anion gap [Moles/Vol] 12 mmol/L 10 - 20 [facility] Medicine Work Phone: AST With P-5'-P [Catalytic activity/Vol] 26 U/L 9 - 39 [facility] Work Phone: Bilirubin [Mass/Vol] 0.7 mg/dL 0.0 - 1.2 [facility] Internal Medicine Work Phone: Calcium [Mass/Vol] 9.6 mg/dL 8.6 - 10.3 [facility] Work Phone: Chloride [Moles/Vol] 100 mmol/L 98 - 107 [facility] Internal Medicine Work Phone: CO2 [Moles/Vol] 29 mmol/L 21 - 32 [facility] Internal Medicine Work Phone: Creatinine [Mass/Vol] 0.81 mg/dL See Below [facility] Work Phone: Comment on above: Reference Range: 0.5 0 - 1.30 Glucose [Mass/Vol] 120 mg/dL above high threshold 74 - 99 [facility] Work Phone: Potassium [Moles/Vol] 4.4 mmol/L 3.5 - 5.3 [facility] Work Phone: Protein [Mass/Vol] 7.6 g/dL 6.4 - 8.2 [facility] Work Phone: Sodium [Moles/Vol] 137 mmol/L 136 - 145 [facility] Work Phone: Urea nitrogen [Mass/Vol] 14 mg/dL 6 - 23 [facility] Work Phone: No Panel Informationon 05-07 >60 >60 [facility] Work Phone: Comment on above: CALCULATIONS OF STEVE MATED GFR ARE PERFORMED USING THE MDRD STUDY EQUATION FOR THE IDMS-TRACEABLE CREATININE METHODS. CLIN CHEM 2007;53:766-72 Laboratory - Coagulationon 1 PT Coag (PPP) [Time] 28.3 s above high threshold 8.0 - 11.0 [facility] Work Phone: No Panel Informationon 04-09 2.5 1 above high threshold 1.0 - 1.2 [facility] Work Phone: Laboratory - Coagulationon 0 03-12-2021 PT Coag (PPP) [Time] 29.4 s above high threshold 8.0 - 11.0 [facility] Medicine Work Phone: No Panel Informationon 03-12 2.6 1 above high threshold 1.0 - 1.2 [facility] Medicine Work Phone: Laboratory - Coagulationon 0 02-12-2021 PT Coag (PPP) [Time] 30.8 s above high threshold 8.0 - 11.0 [facility] Medicine Work Phone: No Panel Informationon 02-12 2.7 1 above high threshold 1.0 - 1.2 [facility] Work Phone: Laboratory - Coagulationon 0 01-22-2021 PT Coag (PPP) [Time] 31.5 s above high threshold 8.0 - 11.0 [facility] Work Phone: No Panel Informationon 01-22 2.8 1 above high threshold 1.0 - 1.2 [facility] Work Phone: Laboratory - Coagulationon 0 01-08-2021 PT Coag (PPP) [Time] 38.1 s above high threshold 8.0 - 11.0 [facility] Work Phone: No Panel Informationon 01-08 3.4 1 above high threshold 1.0 - 1.2 [facility] Work Phone: Tobacco Screening.on 021 Fall risk assessment a) No falls within the last year [facility] Work Phone: Tobacco use status CPHS b) No [facility] Work Phone: Hemoglobin A1Con 01-01-2021 Glucose [Mass/Vol] 148 mg/dL [facility] Work Phone: HbA1c (Bld) [Mass fraction] 6.8 % [facility] Work Phone: Comment on above: Diagnosis of Diabete s-Adults Non-Diabetic: < or = 5.6% Increased risk for developing diabetes: 5.7-6.4% Diagnostic of diabetes: > or = 6.5%. Monitoring of Diabetes Age (y) Therapeutic Goal (%) Adults: >18 <7.0 Pediatrics: 13-18 <7.5 7-12 <8.0 0- 6 7.5-8.5 [place] [employer]. Diabetes Care 33(S1), Jun 2009. Laboratory - Chemistry and C hemistry - challengeon 01-01-2021 Albumin BCP dye [Mass/Vol] 4.1 g/dL 3.4 - 5.0 [facility] Internal [facility] Work Phone: ALP [Catalytic activity/Vol] 49 U/L 33 - 136 [facility] Internal [facility] Work Phone: ALT With P-5'-P [Catalytic activity/Vol] 15 U/L 10 - 52 [facility] Work Phone: Comment on above: Patients treated wit h Sulfasalazine may generate falsely decreased results for ALT. Anion gap [Moles/Vol] 8 mmol/L below low threshold 10 - 20 [facility] Medicine Work Phone: AST With P-5'-P [Catalytic activity/Vol] 17 U/L 9 - 39 [facility] Work Phone: Bilirubin [Mass/Vol] 0.7 mg/dL 0.0 - 1.2 [facility] Medicine Work Phone: Calcium [Mass/Vol] 8.8 mg/dL 8.6 - 10.3 [facility] Medicine Work Phone: Chloride [Moles/Vol] 106 mmol/L 98 - 107 [facility] Medicine Work Phone: CO2 [Moles/Vol] 29 mmol/L 21 - 32 [facility] Internal Medicine Work Phone: Creatinine [Mass/Vol] 0.84 mg/dL See Below [facility] Work Phone: Comment on above: Reference Range: 0.5 0 - 1.30 Glucose [Mass/Vol] 115 mg/dL above high threshold 74 - 99 [facility] Work Phone: Potassium [Moles/Vol] 4.0 mmol/L 3.5 - 5.3 [facility] Work Phone: Protein [Mass/Vol] 6.9 g/dL 6.4 - 8.2 [facility] Work Phone: Sodium [Moles/Vol] 139 mmol/L 136 - 145 [facility] Work Phone: Urea nitrogen [Mass/Vol] 18 mg/dL 6 - 23 [facility] Work Phone: Lipid Panelon 01-01-2021 Cholesterol [Mass/Vol] 125 mg/dL 0 - 199 [facility] Work Phone: Comment on above: . [...] dosing. Cholesterol in HDL [Mass/Vol] 46.0 mg/dL [facility] Work Phone: Comment on above: . AGE VERY LOW LOW N ORMAL HIGH 0-19 Y < 35 < 40 40-45 ---- 20-24 Y ---- < 40 >45 ---- >24 Y ---- < 40 40-60 >60. Cholesterol in LDL [Mass/Vol] 54 mg/dL 0 - 99 [facility] Work Phone: Comment on above: . NEAR BORD AGE KEVIN RABLE OPTIMAL HIGH HIGH VERY HIGH 0-19 Y 0 - 109 --- 110-129 >/= 130 ---- 20-24 Y 0 - 119 --- 120-159 >/= 160 ---- >24 Y 0 - 99 100-129 130-159 160-189 >/=190. Cholesterol.total/Chol esterol in HDL [Mass ratio] 2.7 {ratio} [facility] Work Phone: Comment on above: REF VALUESDESIRABLE < 3.4HIGH RISK > 5.0 Triglyceride [Mass/Vol] 124 mg/dL 0 - 149 [facility] Work Phone: Comment on above: . [...] Lipid Panel 25 mg/dL 0 - 40 [facility] Work Phone: No Panel Informationon 01-01 >60 >60 [facility] Work Phone: Comment on above: CALCULATIONS OF STEVE MATED GFR ARE PERFORMED USING THE MDRD STUDY EQUATION FOR THE IDMS-TRACEABLE CREATININE METHODS. CLIN CHEM 2007;53:766-72 Laboratory - Coagulationon 0 12-24-2020 PT Coag (PPP) [Time] 41.7 s above high threshold 8.0 - 11.0 [facility] Work Phone: No Panel Informationon 12-24 3.7 1 above high threshold 1.0 - 1.2 [facility] Work Phone: Laboratory - Coagulationon 0 11-14-2020 PT Coag (PPP) [Time] 30.1 s above high threshold 8.0 - 11.0 [facility] Work Phone: No Panel Informationon 11-14 2.6 1 above high threshold 1.0 - 1.2 [facility] Internal Medicine Work Phone: Hematologyon 07-02-2020 INR Coag (Bld) [Relative time] 2.8 {INR} above high threshold 1.0 - 1.2 [facility] Work Phone: PT Coag (PPP) [Time] 32.0 {sec} above high threshold 8.0 - 11.0 [facility] Medicine Work Phone: Hematologyon 06-04-2020 INR Coag (Bld) [Relative time] 2.2 {INR} above high threshold 1.0 - 1.2 [facility] Work Phone: PT Coag (PPP) [Time] 25.4 {sec} above high threshold 8.0 - 11.0 [facility] Work Phone: Hematologyon 05-07-2020 INR Coag (Bld) [Relative time] 2.1 {INR} above high threshold 1.0 - 1.2 [facility] Work Phone: PT Coag (PPP) [Time] 23.9 {sec} above high threshold 8.0 - 11.0 [facility] Work Phone: Otheron 05-07-2020 1-Hydroxymidazolam Confirm (U) [Mass/Vol] <25 Cutoff <25 [facility] Internal Medicine Work Phone: 1-Ugmnxvctko-3,5-Dimet hyl-3,3-Diphenylpyrrol idine (EDDP) Confirm (U) [Mass/Vol] <25 Cutoff <25 [facility] Medicine Work Phone: Comment on [...] (U) [Mass/Vol] <25 Cutoff <25 [facility] Medicine Work Phone: 7-Aminoclonazepam Confirm (U) [Mass/Vol] <25 Cutoff <25 [facility] Medicine Work Phone: Alpha hydroxyalprazolam Confirm (U) [Mass/Vol] <25 Cutoff <25 [facility] Medicine Work Phone: Alprazolam Confirm (U) [Mass/Vol] <25 Cutoff <25 [facility] Medicine Work Phone: Amphetamines Screen Ql (U) Negative NEGATIVE [facility] Medicine Work Phone: Comment on above: CUTOFF LEVEL: 500 NG /ML Cross-reactivity has been reported with high concentrations of the following drugs: buproprion, chloroquine, chlorpromazine, ephedrine, mephentermine, fenfluramine, phentermine, phenylpropanolamine, pseudoephedrine, and propranolol. Benzoylecgonine Screen Ql (U) Negative NEGATIVE [facility] Medicine Work Phone: Comment on above: CUTOFF LEVEL: 150 NG /ML Chlordiazepoxide Confirm (U) [Mass/Vol] <25 Cutoff <25 [facility] Medicine Work Phone: Clonazepam Confirm (U) [Mass/Vol] <25 Cutoff <25 [facility] Medicine Work Phone: Codeine Confirm (U) [Mass/Vol] <50 Cutoff <50 [facility] Medicine Work Phone: Creatinine (Body fld) [Mass/Vol] 141.4 mg/dL [facility] Medicine Work Phone: Comment on above: A urine creatinine r esult >= 20 mg/dL is considered valid without suspicion of dilution. Samples with results below this range will automatically reflex to specific gravity testing to verify specimen integrity. Diazepam Confirm (U) [Mass/Vol] <25 Cutoff <25 [facility] Medicine Work Phone: Fentanyl Confirm (U) [Mass/Vol] <2.5 Cutoff<2.5 [facility] Work Phone: Hydrocodone Confirm (U) [Mass/Vol] <25 Cutoff <25 [facility] Work Phone: Hydromorphone Confirm (U) [Mass/Vol] <25 Cutoff <25 [facility] Work Phone: Lorazepam Confirm (U) [Mass/Vol] <25 Cutoff <25 [facility] Work Phone: Methadone Confirm (U) [Mass/Vol] <25 Cutoff <25 -[facility] Work Phone: Midazolam Confirm (U) [Mass/Vol] <25 Cutoff <25 -[facility] Work Phone: Morphine Confirm (U) [Mass/Vol] <50 Cutoff <50 [facility] Work Phone: Nordiazepam Confirm (U) [Mass/Vol] <25 Cutoff <25 -[facility] Work Phone: Norfentanyl Confirm (U) [Mass/Vol] <2.5 Cutoff<2.5 -[facility] Medicine Work Phone: Comment on [...] Norhydrocodone Confirm (U) [Mass/Vol] <25 Cutoff <25 [facility] Work Phone: Noroxycodone Confirm (U) [Mass/Vol] <25 [facility] Work Phone: Nortramadol (U) [Mass/Vol] <50 Cutoff <50 [facility] Work Phone: Comment on above: [...] Oxazepam Confirm (U) [Mass/Vol] <25 Cutoff <25 [facility] Work Phone: [phone] Oxycodone Confirm (U) [Mass/Vol] <25 Cutoff <25 [facility] Work Phone: Oxymorphone Confirm (U) [Mass/Vol] <25 Cutoff <25 [facility] Work Phone: Comment on above: The [...] Temazepam Confirm (U) [Mass/Vol] <25 Cutoff <25 [facility] Work Phone: Comment on above: The [...] Tramadol Confirm (U) [Mass/Vol] <50 Cutoff <50 [facility] Work Phone: Zolpidem (U) [Mass/Vol] <25 Cutoff <25 [facility] Work Phone: <25 Cutoff <25 [facility] Work Phone: Comment on above: The [...] high complexity clinical laboratory testing. SEE BELOW [facility] Work Phone: Comment on above: Drug screen [...] 05-07-2020 Barbiturates Screen Ql (U) Negative NEGATIVE [facility] Work Phone: Comment on above: CUTOFF LEVEL: 200 NG /ML Cannabinoids Screen Ql (U) Negative NEGATIVE [facility] Work Phone: Comment on above: CUTOFF LEVEL: 50 NG/ ML Phencyclidine Ql (U) Negative NEGATIVE [facility] Internal [facility] Work Phone: Comment on above: CUTOFF LEVEL: 25 NG/ ML Cross-reactivity has been reported with dextromethorphan. Complete Blood Count + Diffe rentialon 04-30-2020 Basophils (Bld) [#/Vol] 0.10 {x10E9/L} See Below [facility] Internal [facility] Work Phone: Comment on above: Reference Range: 0.0 0 - 0.10 Basophils/100 WBC (Bld) 0.7 % 0.0 - 2.0 [facility] Work Phone: Eosinophils (Bld) [#/Vol] 0.10 {x10E9/L} See Below [facility] Work Phone: Comment on above: Reference Range: 0.0 0 - 0.40 Eosinophils/100 WBC (Bld) 1.3 % 0.0 - 6.0 [facility] Work Phone: Erythrocyte distribution width (RBC) [Ratio] 13.5 % See Below [facility] Work Phone: Comment on above: Reference Range: 11. 5 - 14.5 Hematocrit (Bld) [Volume fraction] 39.5 % below low threshold See Below [facility] Work Phone: Comment on above: Reference Range: 41. 0 - 52.0 Hemoglobin (Bld) [Mass/Vol] 13.4 g/dL below low threshold See Below [facility] Work Phone: Comment on above: Reference Range: 13. 5 - 17.5 Lymphocytes (Bld) [#/Vol] 2.00 {x10E9/L} See Below [facility] Work Phone: Comment on above: Reference Range: 0.8 0 - 3.00 Lymphocytes/100 WBC (Bld) 25.3 % See Below [facility] Work Phone: Comment on above: Reference Range: 13. 0 - 44.0 MCHC (RBC) [Mass/Vol] 33.9 g/dL See Below [facility] Work Phone: [phone] Comment on above: Reference Range: 32. 0 - 36.0 MCV (RBC) [Entitic vol] 95 fL 80 - 100 [facility] Work Phone: [phone] Monocytes (Bld) [#/Vol] 0.60 {x10E9/L} See Below [facility] Work Phone: Comment on above: Reference Range: 0.0 5 - 0.80 Monocytes/100 WBC (Bld) 8.1 % 2.0 - 10.0 [facility] Work Phone: [phone] Neutrophils (Bld) [#/Vol] 5.00 {x10E9/L} See Below [facility] Work Phone: Comment on above: Reference Range: 1.6 0 - 5.50 Percent differential counts (%) should be interpreted in the context of the absolute cell counts (cells/L). Neutrophils/100 WBC (Bld) 64.6 % See Below [facility] Work Phone: Comment on above: Reference Range: 40. 0 - 80.0 Platelets (Bld) [#/Vol] 262 {x10E9/L} 150 - 450 [facility] Work Phone: RBC (Bld) [#/Vol] 4.18 {x10E12/L} below low threshold See Below [facility] Work Phone: Comment on above: Reference Range: 4.5 0 - 5.90 WBC (Bld) [#/Vol] 7.8 {x10E9/L} 4.4 - 11.3 [facility] Work Phone: Hemoglobin A1Con 04-30-2020 HbA1c (Bld) [Mass fraction] 6.7 % [facility] Work Phone: Comment on above: Diagnosis of Diabete s-Adults Non-Diabetic: < or = 5.6% Increased risk for developing diabetes: 5.7-6.4% Diagnostic of diabetes: > or = 6.5%. Monitoring of Diabetes Age (y) Therapeutic Goal (%) Adults: >18 <7.0 Pediatrics: 13-18 <7.5 7-12 <8.0 0- 6 7.5-8.5 [place] [employer]. Diabetes Care 33(S1), Jun 2009. HbA1c (Bld) [Mass fraction] 146 {MG/DL} [facility] Work Phone: Metabolic Panelon 04-30-2020 ALP [Catalytic activity/Vol] 48 U/L 33 - 136 [facility] Work Phone: Anion gap [Moles/Vol] 10 mmol/L 10 - 20 [facility] Work Phone: Bilirubin [Mass/Vol] 0.7 mg/dL 0.0 - 1.2 [facility] Medicine Work Phone: [phone] Calcium [Mass/Vol] 9.2 mg/dL 8.6 - 10.3 [facility] Work Phone: Chloride [Moles/Vol] 103 mmol/L 98 - 107 [facility] Medicine Work Phone: [phone] CO2 [Moles/Vol] 29 mmol/L 21 - 32 [facility] Internal [facility] Work Phone: Creatinine [Mass/Vol] 0.89 mg/dL See Below [facility] Work Phone: Comment on above: Reference Range: 0.5 0 - 1.30 Glucose [Mass/Vol] 119 mg/dL above high threshold 74 - 99 [facility] Work Phone: [phone] Potassium [Moles/Vol] 4.2 mmol/L 3.5 - 5.3 [facility] Work Phone: Protein [Mass/Vol] 7.2 g/dL 6.4 - 8.2 [facility] Work Phone: Sodium [Moles/Vol] 138 mmol/L 136 - 145 [facility] Work Phone: Urea nitrogen [Mass/Vol] 12 mg/dL 6 - 23 [facility] Work Phone: Otheron 04-30-2020 Albumin BCP dye [Mass/Vol] 4.4 g/dL 3.4 - 5.0 [facility] Work Phone: ALT With P-5'-P [Catalytic activity/Vol] 20 U/L 10 - 52 [facility] Work Phone: Comment on above: Patients treated wit h Sulfasalazine may generate falsely decreased results for ALT. AST With P-5'-P [Catalytic activity/Vol] 21 U/L 9 - 39 [facility] Medicine Work Phone: >60 >60 [facility] Work Phone: Comment on above: CALCULATIONS OF STEVE MATED GFR ARE PERFORMED USING THE MDRD STUDY EQUATION FOR THE IDMS-TRACEABLE CREATININE METHODS. CLIN CHEM 2007;53:766-72 Sedimentation Rate, Erythroc yteon 04-30-2020 ESR (Bld) [Velocity] 21 mm/h above high threshold 0 - 20 [facility] Work Phone: Hematologyon 04-09-2020 INR Coag (Bld) [Relative time] 1.7 {INR} above high threshold 1.0 - 1.2 [facility] Work Phone: PT Coag (PPP) [Time] 20.1 {sec} above high threshold 8.0 - 11.0 [facility] Work Phone: Hemoglobin A1Con 01-30-2020 HbA1c (Bld) [Mass fraction] 6.8 % [facility] Work Phone: Comment on above: Diagnosis of Diabete s-Adults Non-Diabetic: < or = 5.6% Increased risk for developing diabetes: 5.7-6.4% Diagnostic of diabetes: > or = 6.5%. Monitoring of Diabetes Age (y) Therapeutic Goal (%) Adults: >18 <7.0 Pediatrics: 13-18 <7.5 7-12 <8.0 0- 6 7.5-8.5 [place]. Diabetes Care 33(S1), Jun 2009. HbA1c (Bld) [Mass fraction] 148 {MG/DL} [facility] Work Phone: Metabolic Panelon 01-30-2020 ALP [Catalytic activity/Vol] 49 U/L 33 - 136 [facility] Work Phone: Anion gap [Moles/Vol] 10 mmol/L 10 - 20 [facility] Work Phone: Bilirubin [Mass/Vol] 0.7 mg/dL 0.0 - 1.2 [facility] Internal [facility] Work Phone: [phone] Calcium [Mass/Vol] 9.1 mg/dL 8.6 - 10.3 [facility] Medicine Work Phone: Chloride [Moles/Vol] 103 mmol/L 98 - 107 [facility] Work Phone: CO2 [Moles/Vol] 29 mmol/L 21 - 32 [facility] Medicine Work Phone: Creatinine [Mass/Vol] 0.87 mg/dL See Below [facility] Work Phone: Comment on above: Reference Range: 0.5 0 - 1.30 Glucose [Mass/Vol] 123 mg/dL above high threshold 74 - 99 [facility] Work Phone: Potassium [Moles/Vol] 4.3 mmol/L 3.5 - 5.3 [facility] Work Phone: Comment on above: MILD HEMOLYSIS DETEC JOSE. The result may be falsely elevated due tohemolysis or other interferents. Clinical correlation is recommended.Repeat testing may be considered. Protein [Mass/Vol] 7.1 g/dL 6.4 - 8.2 [facility] Work Phone: Sodium [Moles/Vol] 138 mmol/L 136 - 145 [facility] Work Phone: Urea nitrogen [Mass/Vol] 14 mg/dL 6 - 23 [facility] Work Phone: Otheron 01-30-2020 Albumin BCP dye [Mass/Vol] 4.2 g/dL 3.4 - 5.0 [facility] Work Phone: ALT With P-5'-P [Catalytic activity/Vol] 19 U/L 10 - 52 [facility] Work Phone: Comment on above: Patients treated wit h Sulfasalazine may generate falsely decreased results for ALT. AST With P-5'-P [Catalytic activity/Vol] 21 U/L 9 - 39 [facility] Work Phone: Comment on above: MILD HEMOLYSIS DETEC JOSE. The result may be falsely elevated due tohemolysis or other interferents. Clinical correlation is recommended.Repeat testing may be considered. >60 >60 [facility] Work Phone: Comment on above: CALCULATIONS OF STEVE MATED GFR ARE PERFORMED USING THE MDRD STUDY EQUATION FOR THE IDMS-TRACEABLE CREATININE METHODS. CLIN CHEM 2007;53:766-72 Hematologyon 01-16-2020 INR Coag (Bld) [Relative time] 2.4 {INR} above high threshold 1.0 - 1.2 [facility] Work Phone: PT Coag (PPP) [Time] 27.8 {sec} above high threshold 8.0 - 11.0 [facility] Work Phone: Hematologyon 10-24-2019 INR Coag (Bld) [Relative time] 2.4 {INR} above high threshold 1.0 - 1.2 [facility] Work Phone: PT Coag (PPP) [Time] 28.0 {sec} above high threshold 8.0 - 11.0 [facility] Work Phone: Hemoglobin A1Con 10-24-2019 HbA1c (Bld) [Mass fraction] 146 {MG/DL} [facility] Work Phone: HbA1c (Bld) [Mass fraction] 6.7 % [facility] Work Phone: Comment on above: Diagnosis of Diabete s-Adults Non-Diabetic: < or = 5.6% Increased risk for developing diabetes: 5.7-6.4% Diagnostic of diabetes: > or = 6.5%. Monitoring of Diabetes Age (y) Therapeutic Goal (%) Adults: >18 <7.0 Pediatrics: 13-18 <7.5 7-12 <8.0 0- 6 7.5-8.5 [employer]. Diabetes Care 33(S1), Jun 2009. Lipid Panelon 10-24-2019 Cholesterol [Mass/Vol] 140 mg/dL 0 - 199 [facility] Work Phone: Comment on above: . [...] dosing. Cholesterol in HDL [Mass/Vol] 40.0 mg/dL [facility] Work Phone: Comment on above: . AGE VERY LOW LOW N ORMAL HIGH 0-19 Y < 35 < 40 40-45 ---- 20-24 Y ---- < 40 >45 ---- >24 Y ---- < 40 40-60 >60. Cholesterol in LDL [Mass/Vol] 70 mg/dL 0 - 99 [facility] Work Phone: Comment on above: . NEAR BORD AGE KEVIN RABLE OPTIMAL HIGH HIGH VERY HIGH 0-19 Y 0 - 109 --- 110-129 >/= 130 ---- 20-24 Y 0 - 119 --- 120-159 >/= 160 ---- >24 Y 0 - 99 100-129 130-159 160-189 >/=190. Cholesterol.total/Chol esterol in HDL [Mass ratio] 3.5 {ratio} [facility] Work Phone: Comment on above: REF VALUESDESIRABLE < 3.4HIGH RISK > 5.0 Triglyceride [Mass/Vol] 152 mg/dL above high threshold 0 - 149 [facility] Work Phone: Comment on above: . [...] Lipid Panel 30 mg/dL 0 - 40 [facility] Work Phone: Metabolic Panelon 10-24-2019 ALP [Catalytic activity/Vol] 53 U/L 33 - 136 [facility] Work Phone: [phone] Anion gap [Moles/Vol] 10 mmol/L 10 - 20 [facility] Work Phone: [phone] Bilirubin [Mass/Vol] 0.7 mg/dL 0.0 - 1.2 [facility] Work Phone: [phone] Calcium [Mass/Vol] 9.6 mg/dL 8.6 - 10.3 [facility] Work Phone: [phone] Chloride [Moles/Vol] 102 mmol/L 98 - 107 [facility] Work Phone: [phone] CO2 [Moles/Vol] 31 mmol/L 21 - 32 [facility] Work Phone: [phone] Creatinine [Mass/Vol] 0.94 mg/dL See Below [facility] Work Phone: [phone] Comment on above: Reference Range: 0.5 0 - 1.30 Glucose [Mass/Vol] 119 mg/dL above high threshold 74 - 99 [facility] Work Phone: [phone] Potassium [Moles/Vol] 4.1 mmol/L 3.5 - 5.3 [facility] Work Phone: [phone] Protein [Mass/Vol] 7.9 g/dL 6.4 - 8.2 [facility] Work Phone: [phone] Sodium [Moles/Vol] 139 mmol/L 136 - 145 [facility] Work Phone: [phone] Urea nitrogen [Mass/Vol] 14 mg/dL 6 - 23 [facility] Work Phone: Otheron 10-24-2019 Albumin BCP dye [Mass/Vol] 4.6 g/dL 3.4 - 5.0 [facility] Work Phone: ALT With P-5'-P [Catalytic activity/Vol] 21 U/L 10 - 52 [facility] Work Phone: Comment on above: Patients treated wit h Sulfasalazine may generate falsely decreased results for ALT. AST With P-5'-P [Catalytic activity/Vol] 21 U/L 9 - 39 [facility] Work Phone: >60 >60 [facility] Work Phone: Comment on above: CALCULATIONS OF STEVE MATED GFR ARE PERFORMED USING THE MDRD STUDY EQUATION FOR THE IDMS-TRACEABLE CREATININE METHODS. CLIN CHEM 2007;53:766-72 Hematologyon 05-04-2019 INR Coag (Bld) [Relative time] 2.5 {INR} above high threshold 1.0 - 1.2 [facility] Work Phone: PT Coag (PPP) [Time] 29.0 {sec} above high threshold 8.0 - 11.0 [facility] Work Phone: Otheron 04-28-2019 1-Hydroxymidazolam Confirm (U) [Mass/Vol] <25 Cutoff <25 [facility] Work Phone: 6-Monoacetylmorphine (6-INES) Confirm (U) [Mass/Vol] <25 Cutoff <25 [facility] Work Phone: 7-Aminoclonazepam Confirm (U) [Mass/Vol] <25 Cutoff <25 [facility] Work Phone: Alpha hydroxyalprazolam Confirm (U) [Mass/Vol] <25 Cutoff <25 [facility] Work Phone: Alprazolam Confirm (U) [Mass/Vol] <25 Cutoff <25 [facility] Work Phone: Amphetamines Screen Ql (U) Negative NEGATIVE [facility] Work Phone: Comment on above: CUTOFF LEVEL: 500 NG /ML Cross-reactivity has been reported with high concentrations of the following drugs: buproprion, chloroquine, chlorpromazine, ephedrine, mephentermine, fenfluramine, phentermine, phenylpropanolamine, pseudoephedrine, and propranolol. Benzoylecgonine Screen Ql (U) Negative NEGATIVE [facility] Work Phone: Comment on above: CUTOFF LEVEL: 150 NG /ML Chlordiazepoxide Confirm (U) [Mass/Vol] <25 Cutoff <25 [facility] Work Phone: Clonazepam Confirm (U) [Mass/Vol] <25 Cutoff <25 [facility] Work Phone: Codeine Confirm (U) [Mass/Vol] <25 Cutoff <25 [facility] Work Phone: Diazepam Confirm (U) [Mass/Vol] <25 Cutoff <25 [facility] Work Phone: Hydrocodone Confirm (U) [Mass/Vol] <25 Cutoff <25 [facility] Work Phone: Hydromorphone Confirm (U) [Mass/Vol] <25 Cutoff <25 [facility] Work Phone: Lorazepam Confirm (U) [Mass/Vol] <25 Cutoff <25 [facility] Work Phone: Methadone Screen Ql (U) Negative NEGATIVE [facility] Work Phone: Comment on above: CUTOFF LEVEL: 150 NG /ML The metabolite N-nlvkz-khydjytyrhybzk (LAAM) is not detected by this method in concentrations that would be found in the urine of patients on LAAM therapy. Midazolam Confirm (U) [Mass/Vol] <25 Cutoff <25 [facility] Work Phone: Morphine Confirm (U) [Mass/Vol] <25 Cutoff <25 [facility] Work Phone: Nordiazepam Confirm (U) [Mass/Vol] <25 Cutoff <25 [facility] Work Phone: Norhydrocodone Confirm (U) [Mass/Vol] <25 Cutoff <25 [facility] Work Phone: Noroxycodone Confirm (U) [Mass/Vol] <25 Cutoff <25 [facility] Work Phone: Opiates Screen Ql (U) Negative NEGATIVE [facility] Work Phone: Comment on above: CUTOFF [...] Oxazepam Confirm (U) [Mass/Vol] <25 Cutoff <25 [facility] Work Phone: Oxycodone Confirm (U) [Mass/Vol] <25 Cutoff <25 [facility] Work Phone: Oxymorphone Confirm (U) [Mass/Vol] <25 Cutoff <25 [facility] Work Phone: Comment on above: The [...] Temazepam Confirm (U) [Mass/Vol] <25 Cutoff <25 [facility] Work Phone: Comment on above: The [...] high complexity clinical laboratory testing. SEE BELOW [facility] Work Phone: Comment on above: Drug screen [...] 04-28-2019 Barbiturates Screen Ql (U) Negative NEGATIVE [facility] Work Phone: Comment on above: CUTOFF LEVEL: 200 NG /ML Benzodiazepines Ql (U) Negative NEGATIVE [facility] Work Phone: Comment on above: CUTOFF LEVEL: 200 NG /MLBenzodiazepine Confirmatory testing has been ordered and will be reported separately. Although the benzodiazepine screening test provides rapid results; the confirmatory test provide the most sensitive and specific assessment of drug presence or absence in the urine. Cannabinoids Screen Ql (U) Negative NEGATIVE [facility] Work Phone: Comment on above: CUTOFF LEVEL: 50 NG/ ML Phencyclidine Ql (U) Negative NEGATIVE [facility] Work Phone: Comment on above: CUTOFF LEVEL: 25 NG/ ML Cross-reactivity has been reported with dextromethorphan. PT/INR POC Orderon 9 INR Coag (Bld) [Relative time] Collected Normal [facility] Comment on above: Performed By: #### 8 [id number] #### JANES POC [employer]section [address] [place] [address] 77590 PT/INR Capillaryon 9 INR Coag (Bld) [Relative time] 2.6 {INR} High 1.0-1.2 [facility] Comment on above: Result Comment: Sour ce Capillary Performed By: #### 8 [id number] #### JANES POC Subsection [address] [place] [address] PT POC 29.0 second(s) High 8.0-11.0 [facility] Comment on above: Performed By: #### 8 [id number] #### JANES POC [employer]section [address] [place] [address] CMPon 02-23-2019 Albumin [Mass/Vol] 4.3 g/dL Normal 3.4-5.0 [facility] Comment on above: Performed By: #### 8 [id number] #### JANES POC Subsection [address] [place] [address] Albumin/Globulin [Mass ratio] 1.5 {ratio} Normal 1.1-1.9 [facility] Comment on above: Performed By: #### 8 [id number] #### JANES POC [employer]section [address] [place] [address] Alk Phos 55 Int._Unit/L Normal 33-136 [facility] Comment on above: Performed By: #### 8 [id number] #### JANES POC [employer]section [address] [place] [address] ALT [Catalytic activity/Vol] 19 Int._Unit/L Normal 10-52 [facility] Comment on above: Performed By: #### 8 [id number] #### JANES POC Subsection [address] [place] [address] Anion gap [Moles/Vol] 10 mmol/L Normal 10-20 [facility] Comment on above: Performed By: #### 8 [id number] #### JANES POC Subsection [address] [place], [place] [id number] AST [Catalytic activity/Vol] 18 Int._Unit/L Normal 9-39 [facility] Comment on above: Performed By: #### 8 [id number] #### JANES POC Subsection [address] [place] [address] Bili Total 0.72 mg/dL Normal 0.00-1.20 [facility] Comment on above: Performed By: #### 8 [id number] #### JANES POC Subsection [address] [place] [address] 72614 Calcium [Mass/Vol] 9.3 mg/dL Normal 8.6-10.3 [facility] Comment on above: Performed By: #### 8 [id number] #### JANES POC Subsection [address] [place] [address] 04087 Chloride [Moles/Vol] 104 mmol/L Normal 98-107 [facility] Comment on above: Performed By: #### 8 [id number] #### JANES POC Subsection [address] [place] [address] 48596 CO2 [Moles/Vol] 29.0 mmol/L Normal 21.0-32.0 [facility] Comment on above: Performed By: #### 8 [id number] #### JANES POC Subsection [address] [place] [address] 64065 Creatinine [Mass/Vol] 0.8 mg/dL Normal 0.5-1.3 [facility] Comment on above: Performed By: #### 8 [id number] #### JANES POC Subsection [address] [place] [address] 08339 Globulin (S) [Mass/Vol] 3.0 g/dL Normal 2.0-4.0 [facility] Comment on above: Performed By: #### 8 [id number] #### JANES POC Subsection [address] [place] [address] 36994 Glucose [Mass/Vol] 119 mg/dL High 70-99 [facility] Comment on above: Performed By: #### 8 [id number] #### JANES POC Subsection [address] [place] [address] 80567 Potassium [Moles/Vol] 4.4 mmol/L Normal 3.5-5.3 [facility] Comment on above: Performed By: #### 8 [id number] #### JANES POC Subsection [address] [place] [address] 23148 Protein [Mass/Vol] 7.2 g/dL Normal 6.4-8.2 [facility] Comment on above: Performed By: #### 8 [id number] #### JANES POC Subsection [address] [place] [address] 89800 Sodium [Moles/Vol] 139 mmol/L Normal 136-145 [facility] Comment on above: Performed By: #### 8 [id number] #### JANES POC Subsection [address] [place] [address] 66281 Urea nitrogen [Mass/Vol] 18 mg/dL Normal 6-23 [facility] Comment on above: Performed By: #### 8 [id number] #### JANES POC Subsection [address] [place] [address] 74894 Urea nitrogen/Creatinine [Mass ratio] 22.5 ratio Normal 5.4-30.0 [facility] Comment on above: Performed By: #### 8 [id number] #### JANES POC Subsection [address] [place] [address] 25805 [id number] 02-23-2019 HbA1c (Bld) [Mass fraction] 6.5 % High 4.0-6.3 [facility] Comment on above: Performed By: #### 8 [id number] #### JANES POC Subsection [address] [place] [address] 52033 Lipid Profileon 02-23-2019 Cholesterol [Mass/Vol] 123 mg/dL Normal 0-199 [facility] Comment on above: Result Comment: TOTA L CHOLEESTEROL: <200 NORMAL 200 - 239 BORDERLINE HIGH >240 HIGH Performed By: #### 8 [id number] #### JANES POC Subsection [address] [place] [address] 96312 Cholesterol in HDL [Mass/Vol] 41 mg/dL Normal 40-60 [facility] Comment on above: Performed By: #### 8 [id number] #### JANES POC Subsection [address] [place] [address] 70449 Cholesterol in LDL [Mass/Vol] 56 mg/dL Normal 0-130 [facility] Comment on above: Result Comment: <100 OPTIMAL 100-129 NEAR / ABOVE OPTIMAL 130-159 BORDERLINE HIGH 160-189 HIGH >190 VERY HIGH CALC LDL NOT VALID WHEN TRIGLYCERIDE IS >400 MG/DL Performed By: #### 8 [id number] #### JANES POC Subsection [address] [place] [address] 50261 Cholesterol in VLDL [Mass/Vol] 26 mg/dL Normal 0-40 [facility] Comment on above: Performed By: #### 8 [id number] #### JANES POC Subsection [address] [place] [address] 33602 Triglyceride [Mass/Vol] 131 mg/dL Normal 0-149 [facility] Comment on above: Result Comment: AGE DESIRABLE BORDERLINE HIGH 91 D - 9 Y 0 - 74 75 - 99 > 100 10 - 19 Y 0 - 89 90 - 129 > 130 20 -24 Y 0 - 114 115 - 149 > 150 > 25 0 - 149 150 - 199 200 - 499 Performed By: #### 8 [id number] #### JANES POC Subsection [address] [place] [address] 25480 eGFRon 02-23-2019 GFR/1.73 sq M predicted among non-blacks MDRD (S/P/Bld) [Vol rate/Area] mL/min/{1.73_m2} Normal [facility] Comment on above: Order Comment: Order added by Discern Expert. Performed By: #### 8 [id number] #### JANES POC Subsection [address] [place] [address] 38336 PT/INR Capillaryon 9 INR Coag (Bld) [Relative time] 2.6 {INR} High 1.0-1.2 [facility] Comment on above: Result Comment: Sour ce Capillary Performed By: #### 8 [id number] #### JANES POC Subsection [address] [place] [address] 09971 PT POC 30.0 second(s) High 8.0-11.0 [facility] Comment on above: Performed By: #### 8 [id number] #### JANES POC Subsection [address] [place] [address] 30816 PT/INR POC Orderon 9 INR Coag (Bld) [Relative time] Collected Normal [facility] Comment on above: Performed By: #### 8 [id number] #### JANES POC Subsection [address] [place] [address] 57927 PT/INR Capillaryon 9 INR Coag (Bld) [Relative time] 2.8 {INR} High 1.0-1.2 [facility] Comment on above: Result Comment: Sour ce Capillary Performed By: #### 8 [id number] #### JANES POC Subsection [address] [place] [address] 84441 PT POC 33.0 second(s) High 8.0-11.0 [facility] Comment on above: Performed By: #### 8 [id number] #### JANES POC Subsection [address] [place] [address] 14942 PT/INR POC Orderon 9 INR Coag (Bld) [Relative time] Collected Normal [facility] Comment on above: Performed By: #### 8 [id number] #### JANES POC Subsection [address] [place] [address] 19779 PT/INR Capillaryon 9 INR Coag (Bld) [Relative time] 2.9 {INR} High 1.0-1.2 [facility] Comment on above: Result Comment: Sour ce Capillary Performed By: #### 8 [id number] #### JANES POC Subsection [address] [place] [address] 98600 PT POC 34.0 second(s) High 8.0-11.0 [facility] Comment on above: Performed By: #### 8 [id number] #### JANES POC Subsection [address] [place] [address] 37591 PT/INR POC Orderon 9 INR Coag (Bld) [Relative time] Collected Normal [facility] Comment on above: Performed By: #### 8 [id number] #### JANES POC Subsection [address] [place], [place] [id number] CMPon 10-19-2018 Albumin [Mass/Vol] 4.4 g/dL Normal 3.4-5.0 [facility] Comment on above: Performed By: #### 8 [id number] #### JANES POC Subsection [address] [place] [address] 01304 Albumin/Globulin [Mass ratio] 1.5 {ratio} Normal 1.1-1.9 [facility] Comment on above: Performed By: #### 8 [id number] #### JANES POC Subsection [address] [place] [address] 60231 Alk Phos 52 Int._Unit/L Normal 33-136 [facility] Comment on above: Performed By: #### 8 [id number] #### JANES POC Subsection [address] [place], [place] [address] ALT [Catalytic activity/Vol] 17 Int._Unit/L Normal 10-52 [facility] Comment on above: Performed By: #### 8 [id number] #### JANES POC Subsection [address] [place] [address] 62942 Anion gap [Moles/Vol] 10 mmol/L Normal 10-20 [facility] Comment on above: Performed By: #### 8 [id number] #### JANES POC Subsection [address] [place] [address] 78506 AST [Catalytic activity/Vol] 17 Int._Unit/L Normal 9-39 [facility] Comment on above: Performed By: #### 8 [id number] #### JANES POC Subsection [address] [place] [address] 02098 Bili Total 0.83 mg/dL Normal 0.00-1.20 [facility] Comment on above: Performed By: #### 8 [id number] #### JANES POC Subsection [address] [place] [address] 59713 Calcium [Mass/Vol] 9.4 mg/dL Normal 8.6-10.3 [facility] Comment on above: Performed By: #### 8 [id number] #### JANES POC Subsection [address] [place] [address] 79409 Chloride [Moles/Vol] 106 mmol/L Normal 98-107 [facility] Comment on above: Performed By: #### 8 [id number] #### JANES POC Subsection [address] [place] [address] 74873 CO2 [Moles/Vol] 27.0 mmol/L Normal 21.0-32.0 [facility] Comment on above: Performed By: #### 8 [id number] #### JANES POC Subsection [address] [place] [address] 92418 Creatinine [Mass/Vol] 0.8 mg/dL Normal 0.5-1.3 [facility] Comment on above: Performed By: #### 8 [id number] #### JANES POC Subsection [address] [place] [address] 58784 Globulin (S) [Mass/Vol] 3.0 g/dL Normal 2.0-4.0 [facility] Comment on above: Performed By: #### 8 [id number] #### JANES POC Subsection [address] [place] [address] 01527 Glucose [Mass/Vol] 125 mg/dL High 70-99 [facility] Comment on above: Performed By: #### 8 [id number] #### JANES POC Subsection [address] [place] [address] 23410 Potassium [Moles/Vol] 4.4 mmol/L Normal 3.5-5.3 [facility] Comment on above: Performed By: #### 8 [id number] #### JANES POC Subsection [address] [place] [address] 08164 Protein [Mass/Vol] 7.3 g/dL Normal 6.4-8.2 [facility] Comment on above: Performed By: #### 8 [id number] #### JANES POC Subsection [address] [place] [address] 13040 Sodium [Moles/Vol] 139 mmol/L Normal 136-145 [facility] Comment on above: Performed By: #### 8 [id number] #### JANES POC Subsection [address] [place] [address] 82403 Urea nitrogen [Mass/Vol] 18 mg/dL Normal 6-23 [facility] Comment on above: Performed By: #### 8 [id number] #### JANES POC Subsection [address] [place] [address] 94976 Urea nitrogen/Creatinine [Mass ratio] 22.5 ratio Normal 5.4-30.0 [facility] Comment on above: Performed By: #### 8 [id number] #### JANES POC Subsection [address] [place] [address] 92892 [id number] 10-19-2018 HbA1c (Bld) [Mass fraction] 6.5 % High 4.0-6.3 [facility] Comment on above: Performed By: #### 8 [id number] #### JANES POC Subsection [address] [place] [address] 04597 eGFRon 10-19-2018 GFR/1.73 sq M predicted among non-blacks MDRD (S/P/Bld) [Vol rate/Area] mL/min/{1.73_m2} Normal [facility] Comment on above: Order Comment: Order added by Discern Expert. Performed By: #### 8 [id number] #### JANES POC Subsection [address] [place] [address] 41330 PT/INR Capillaryon 9 INR Coag (Bld) [Relative time] 2.6 {INR} High 1.0-1.2 [facility] Comment on above: Result Comment: Sour ce Capillary Performed By: #### 8 [id number] #### JANES POC Subsection [address] [place] [address] 53558 PT POC 30.0 second(s) High 8.0-11.0 [facility] Comment on above: Performed By: #### 8 [id number] #### JANES POC Subsection [address] [place] [address] 51051 PT/INR POC Orderon 9 INR Coag (Bld) [Relative time] Collected Normal [facility] Comment on above: Performed By: #### 8 [id number] #### JANES POC Subsection [address] [place] [address] 85102 PT/INR Capillaryon 9 INR Coag (Bld) [Relative time] 2.4 {INR} High 1.0-1.2 [facility] Comment on above: Result Comment: Sour ce Capillary Performed By: #### 8 [id number] #### JANES POC Subsection [address] [place] [address] 99077 PT POC 28.0 second(s) High 8.0-11.0 [facility] Comment on above: Performed By: #### 8 [id number] #### JANES POC Subsection [address] [place] [address] 77012 PT/INR POC Orderon 9 INR Coag (Bld) [Relative time] Collected Normal [facility] Comment on above: Performed By: #### 8 [id number] #### JANES POC Subsection [address] [place] [address] 53962 CMPon 07-06-2018 Albumin [Mass/Vol] 4.3 g/dL Normal 3.4-5.0 [facility] Comment on above: Performed By: #### 2 [id number] #### JANES [employer] [address] [place] [address] 63096 Albumin/Globulin [Mass ratio] 1.4 {ratio} Normal 1.1-1.9 [facility] Comment on above: Performed By: #### 2 [id number] #### JANES [employer] [address] [place] [address] 20762 Alk Phos 54 Int._Unit/L Normal 33-136 [facility] Comment on above: Performed By: #### 2 [id number] #### JANES [employer] [address] [place] [address] 45665 ALT [Catalytic activity/Vol] 22 Int._Unit/L Normal 10-52 [facility] Comment on above: Performed By: #### 2 [id number] #### JANES [employer] [address] [place] [address] 11018 Anion gap [Moles/Vol] 10 mmol/L Normal 10-20 [facility] Comment on above: Performed By: #### 2 [id number] #### [facility] [employer] [address] [place] [address] 42574 AST [Catalytic activity/Vol] 20 Int._Unit/L Normal 9-39 [facility] Comment on above: Performed By: #### 2 [id number] #### [facility] [employer] [address] [place] [address] 98658 Bili Total 0.92 mg/dL Normal 0.00-1.20 [facility] Comment on above: Performed By: #### 2 [id number] #### [facility] [employer] [address] [place] [address] 20206 Calcium [Mass/Vol] 9.6 mg/dL Normal 8.6-10.3 [facility] Comment on above: Performed By: #### 2 [id number] #### JANES [employer] [address] [place] [address] 17539 Chloride [Moles/Vol] 104 mmol/L Normal 98-107 [facility] Comment on above: Performed By: #### 2 [id number] #### JANES [employer] [address] [place] [address] 86430 CO2 [Moles/Vol] 30.0 mmol/L Normal 21.0-32.0 [facility] Comment on above: Performed By: #### 2 [id number] #### JANES [employer] [address] [place] [address] 10026 Creatinine [Mass/Vol] 0.8 mg/dL Normal 0.5-1.3 [facility] Comment on above: Performed By: #### 2 [id number] #### JANSE [employer] [address] [place] [address] 40781 Globulin (S) [Mass/Vol] 3.0 g/dL Normal 2.0-4.0 [facility] Comment on above: Performed By: #### 2 [id number] #### JANES [employer] [address] [place] [address] 71755 Glucose [Mass/Vol] 131 mg/dL High 70-99 [facility] Comment on above: Performed By: #### 2 [id number] #### JANES [employer] [address] [place] [address] 50317 Potassium [Moles/Vol] 4.4 mmol/L Normal 3.5-5.3 [facility] Comment on above: Performed By: #### 2 [id number] #### JANES [employer] [address] [place] [address] 42968 Protein [Mass/Vol] 7.3 g/dL Normal 6.4-8.2 [facility] Comment on above: Performed By: #### 2 [id number] #### JANES [employer] [address] [place] [address] 67667 Sodium [Moles/Vol] 139 mmol/L Normal 136-145 [facility] Comment on above: Performed By: #### 2 [id number] #### JANES [employer] [address] [place] [address] [id number] Urea nitrogen [Mass/Vol] 15 mg/dL Normal 6-23 [facility] Comment on above: Performed By: #### [id number] #### JANES [employer] [address] [place] [address] [id number] Urea nitrogen/Creatinine [Mass ratio] 18.8 ratio Normal 5.4-30.0 [facility] Comment on above: Performed By: #### [id number] #### JANES [employer] [address] [place] [id number] LcrB5arb 07-06-2018 HbA1c (Bld) [Mass fraction] 6.6 % High 4.0-6.3 [facility] Comment on above: Performed By: #### [id number] #### JANES Chemistry Manual Subsection [address] [place] [address] [id number] eGFRon 07-06-2018 GFR/1.73 sq M predicted among non-blacks MDRD (S/P/Bld) [Vol rate/Area] mL/min/{1.73_m2} Normal [facility] Comment on above: Order Comment: Order added by Discern Expert. Performed By: #### [id number] #### JANES [employer] [address] [place] [address] 28901 PT/INR Capillaryon 8 INR Coag (Bld) [Relative time] 2.4 {INR} High 1.0-1.2 [facility] Comment on above: Result Comment: Sour ce Capillary Performed By: #### [id number] #### JANES POC Subsection [address] [place] [address] [id number] PT POC 28.0 second(s) High 8.0-11.0 [facility] Comment on above: Performed By: #### [id number] #### JANES POC Subsection [address] [place] [address] [id number] PT/INR POC Orderon 8 INR Coag (Bld) [Relative time] Collected Normal [facility] Comment on above: Performed By: #### [id number] #### JANES POC Subsection [address] [place] [address] [id number] PT/INR Capillaryon 8 INR Coag (Bld) [Relative time] 2.5 {INR} High 1.0-1.2 [facility] Comment on above: Result Comment: Sour ce Capillary Performed By: #### [id number] #### JANES POC Subsection [address] [place] [address] 04667 PT POC 29.0 second(s) High 8.0-11.0 [facility] Comment on above: Performed By: #### [id number] #### JANES POC Subsection [address] [place] [address] 72419 PT/INR POC Orderon 8 INR Coag (Bld) [Relative time] Collected Normal [facility] Comment on above: Performed By: #### [id number] #### JANES POC Subsection [address] [place] [address] Vital Signs Date Time Vital Sign Value Performing Clinician Facility 05-02-2025 13:09-0500 Body height 182.9 cm Neymar Xavier MD Work Phone: [facility] 05-02-2025 13:09-0500 Body mass index (BMI) [Ratio] 30.92 kg/m2 Neymar Xavier MD Work Phone: [facility] 05-02-2025 13:09-0500 Body weight 103.42 kg Neymar Xavier MD Work Phone: 7(876)588-758823 [place] [address] 05-02-2025 13:09-0500 Diastolic blood pressure 73 mm[Hg] Neymar Xavier MD Work Phone: [facility] 05-02-2025 13:09-0500 Heart rate 70 /min Neymar Xavier MD Work Phone: [facility] 05-02-2025 13:09-0500 SaO2% (BldA) [Mass fraction] 97 % Neymar Xavier MD Work Phone: [facility] 05-02-2025 13:09-0500 Systolic blood pressure 123 mm[Hg] Neymar Xavier MD Work Phone: [facility] 04-21-2025 13:40-0400 Body temperature 98.3 [degF] Dr. Neymar Xavier MD Work Phone: [facility] 04-21-2025 13:40-0400 Diastolic blood pressure 72 mm[Hg] Dr. Neymar Xavier MD Work Phone: [facility] 04-21-2025 13:40-0400 Heart rate 106 /min Dr. Neymar Xavier MD Work Phone: [facility] 04-21-2025 13:40-0400 Respiratory rate 16 /min Dr. Neymar Xavier MD Work Phone: [facility] 04-21-2025 13:40-0400 SaO2% (BldA) [Mass fraction] 97 % Dr. Neymar Xavier MD Work Phone: [facility] 04-21-2025 13:40-0400 Systolic blood pressure 112 mm[Hg] Dr. Neymar Xavier MD Work Phone: [facility] 04-21-2025 07:42-0400 Inhaled oxygen flow rate 2 L/min Dr. Neymar Xavier MD Work Phone: [facility] 04-20-2025 13:07-0400 Body height 182.[address] Neymar Xavier MD Work Phone: [facility] 04-20-2025 13:07-0400 Body mass index (BMI) [Ratio] 30.1 kg/m2 Dr. Neymar Xavier MD Work Phone: 4(657)302-297705 [place] [address] 04-20-2025 13:07-0400 Body weight 100.[address] Neymar Xavier MD Work Phone: [facility] 04-13-2025 15:19-0400 Body height 182.9 cm Neymar Xavier MD Work Phone: [facility] 04-13-2025 15:19-0400 Body mass index (BMI) [Ratio] 30.88 kg/m2 Neymar Xavier MD Work Phone: [facility] 04-13-2025 15:19-0400 Body weight 103.28 kg Neymar Xavier MD Work Phone: [facility] 04-13-2025 15:19-0400 Diastolic blood pressure 80 mm[Hg] Neymar Xavier MD Work Phone: [facility] 04-13-2025 15:19-0400 Heart rate 89 /min Neymar Xavier MD Work Phone: [facility] 04-13-2025 15:19-0400 SaO2% (BldA) [Mass fraction] 95 % Neymar Xavier MD Work Phone: [facility] 04-13-2025 15:19-0400 Systolic blood pressure 123 mm[Hg] Neymar Xavier MD Work Phone: [facility] 03-16-2025 15:48-0400 Body height 182.9 cm Neymar Xavier MD Work Phone: [facility] 03-16-2025 15:48-0400 Body mass index (BMI) [Ratio] 31.06 kg/m2 Neymar Xavier MD Work Phone: 4(182)761-729823 [place] [address] 03-16-2025 15:48-0400 Body weight 103.87 kg Neymar Xavier MD Work Phone: [facility] 03-16-2025 15:48-0400 Diastolic blood pressure 98 mm[Hg] Neymar Xavier MD Work Phone: [facility] 03-16-2025 15:48-0400 Heart rate 94 /min Neymar Xavier MD Work Phone: [facility] 03-16-2025 15:48-0400 SaO2% (BldA) [Mass fraction] 95 % Neymar Xavier MD Work Phone: [facility] 03-16-2025 15:48-0400 Systolic blood pressure 151 mm[Hg] Neymar Xavier MD Work Phone: [facility] 02-13-2025 08:46-0400 Body height 182.9 cm Neymar Xavier MD Work Phone: 4(670)425-160823 [place] [address] 02-13-2025 08:46-0400 Body mass index (BMI) [Ratio] 30.11 kg/m2 Neymar Xavier MD Work Phone: 2(023)599-479099 [place] [address] 02-13-2025 08:46-0400 Body weight 100.7 kg Neymar Xavier MD Work Phone: 3(610)027-801799 [place] [address] 02-13-2025 08:46-0400 Diastolic blood pressure 77 mm[Hg] Neymar Xavier MD Work Phone: 9(593)438-687199 [place] [address] 02-13-2025 08:46-0400 Heart rate 85 /min Neymar Xavier MD Work Phone: 4(647)121-058899 [place] [address] 02-13-2025 08:46-0400 Systolic blood pressure 131 mm[Hg] Neymar Xavier MD Work Phone: 9(668)964-687799 [place] [address] 02-06-2025 09:09-0400 Diastolic blood pressure 80 mm[Hg] Neymar Xavier MD Work Phone: 1(336)408-888499 [place] [address] 02-06-2025 09:09-0400 Systolic blood pressure 118 mm[Hg] Neymar Xavier MD Work Phone: 5(043)522-869599 [place] [address] 02-06-2025 08:56-0400 Body height 182.9 cm Neymar Xavier MD Work Phone: 8(516)064-456999 [place] [address] 02-06-2025 08:56-0400 Body mass index (BMI) [Ratio] 30.11 kg/m2 Neymar Xavier MD Work Phone: 9(015)558-100999 [place] [address] 02-06-2025 08:56-0400 Body weight 100.7 kg Neymar Xavier MD Work Phone: 5(511)634-981799 [place] [address] 02-06-2025 08:56-0400 Heart rate 92 /min Neymar Xavier MD Work Phone: 4(260)521-722799 [place] [address] 10-18-2024 10:54-0400 Body height 182.9 cm Neymar Xavier MD Work Phone: [facility] 10-18-2024 10:54-0400 Body mass index (BMI) [Ratio] 29.84 kg/m2 Neymar Xavier MD Work Phone: 5(344)632-074723 [place] [address] 10-18-2024 10:54-0400 Body weight 99.79 kg Neymar Xavier MD Work Phone: 8(677)748-331223 [place] [address] 10-18-2024 10:54-0400 Diastolic blood pressure 84 mm[Hg] Neymar Xavier MD Work Phone: 5(000)877-375623 [place] [address] 10-18-2024 10:54-0400 Heart rate 96 /min Neymar Xavier MD Work Phone: [facility] 10-18-2024 10:54-0400 Systolic blood pressure 134 mm[Hg] Neymar Xvaier MD Work Phone: 2(389)026-536223 [place] [address] 09-27-2024 15:52-0400 Body height 182.9 cm Neymar Xavier MD Work Phone: 6(973)884-212823 [place] [address] 09-27-2024 15:52-0400 Body mass index (BMI) [Ratio] 29.84 kg/m2 Neymar Xavier MD Work Phone: 9(888)938-492723 [place] [address] 09-27-2024 15:52-0400 Body weight 99.79 kg Neymar Xavier MD Work Phone: 0(382)309-936323 [place] [address] 09-27-2024 15:52-0400 Diastolic blood pressure 85 mm[Hg] Neymar Xavier MD Work Phone: 7(801)257-863923 [place] [address] 09-27-2024 15:52-0400 Heart rate 102 /min Neymar Xavier MD Work Phone: 2(517)924-681823 [place] [address] 09-27-2024 15:52-0400 Systolic blood pressure 136 mm[Hg] Neymar Xavier MD Work Phone: [facility] 09-22-2024 14:40-0400 Body temperature 98.7 [degF] Dr. Stone Leong DO Work Phone: 0(222)200-101245 [address] 09-22-2024 14:40-0400 Diastolic blood pressure 87 mm[Hg] Dr. Stone Leong DO Work Phone: 6(682)533-736519 [place] [address] 09-22-2024 14:40-0400 Heart rate 92 /min Dr. Stone Leong DO Work Phone: 6(479)071-646419 [place] [address] 09-22-2024 14:40-0400 Respiratory rate 18 /min Dr. Stone Leong DO Work Phone: 4(408)655-624219 [place] [address] 09-22-2024 14:40-0400 SaO2% (BldA) [Mass fraction] 97 % Dr. Stone Leong DO Work Phone: 4(539)152-039619 [place] [address] 09-22-2024 14:40-0400 Systolic blood pressure 121 mm[Hg] Dr. Stone Leong DO Work Phone: 7(278)954-328619 [place] [address] 09-22-2024 05:50-0400 Body mass index (BMI) [Ratio] 29.5 kg/m2 Dr. Stone Leong DO Work Phone: 2(692)556-537219 [place] [address] 09-22-2024 05:50-0400 Body weight 98.[address] Stone Leong DO Work Phone: 8(689)315-549919 [place] [address] 09-21-2024 09:31-0400 Body height 182.[address] Stone Leong DO Work Phone: 1(084)825-629419 [place] [address] 09-21-2024 09:05-0400 Inhaled oxygen flow rate 3 L/min Dr. Stone Leong DO Work Phone: [facility] 09-21-2024 08:00-0400 Inhaled oxygen concentration 29 % Dr. Stone Leong DO Work Phone: [facility] 09-20-2024 20:00-0400 Body temperature 99.3 [degF] Dr. Stone Leong DO Work Phone: 1(726)955-764301 [place] [address] 09-20-2024 20:00-0400 Diastolic blood pressure 54 mm[Hg] Dr. Stone Leong DO Work Phone: 6(450)631-343301 [place] [address] 09-20-2024 20:00-0400 Heart rate 130 /min Dr. Stone Leong DO Work Phone: 9(731)637-087201 [place] [address] 09-20-2024 20:00-0400 Respiratory rate 27 /min Dr. Stone Leong DO Work Phone: 9(924)306-092301 [place] [address] 09-20-2024 20:00-0400 SaO2% (BldA) [Mass fraction] 95 % Dr. Stone Leong DO Work Phone: 4(946)974-107301 [place] [address] 09-20-2024 20:00-0400 Systolic blood pressure 117 mm[Hg] Dr. Stone Leong DO Work Phone: 2(142)856-228201 [place] [address] 09-20-2024 19:21-0400 Inhaled oxygen concentration 28 % Dr. Stone Leong DO Work Phone: [facility] 09-20-2024 17:34-0400 Body height 182.[address] Stone Leong DO Work Phone: 7(114)370-032201 [place] [address] 09-20-2024 17:34-0400 Body mass index (BMI) [Ratio] 29.7 kg/m2 Dr. Stone Leong DO Work Phone: 8(820)473-873901 [place] [address] 09-20-2024 17:34-0400 Body weight 99.[address] Stone Leong DO Work Phone: [facility] 08-01-2024 11:45-0500 Diastolic blood pressure 79 mm[Hg] Neymar Xavier MD Work Phone: [facility] 08-01-2024 11:45-0500 Systolic blood pressure 124 mm[Hg] Neymar Xavier MD Work Phone: [facility] 08-01-2024 11:30-0500 Body height 182.9 cm Neymar Xavier MD Work Phone: [facility] 08-01-2024 11:30-0500 Body mass index (BMI) [Ratio] 30.79 kg/m2 Neymar Xavier MD Work Phone: [facility] 08-01-2024 11:30-0500 Body weight 102.97 kg Neymar Xavier MD Work Phone: [facility] 08-01-2024 11:30-0500 Heart rate 83 /min Neymar Xavier MD Work Phone: [facility] 02-25-2024 15:14-0400 Diastolic blood pressure 84 mm[Hg] Kayla RUIZ-C Work Phone: [facility] 02-25-2024 15:14-0400 Systolic blood pressure 130 mm[Hg] Kayla RUIZ-C Work Phone: [facility] 02-25-2024 14:35-0400 Body height 182.9 cm Kayla Muse PA-C Work Phone: [facility] 02-25-2024 14:35-0400 Body mass index (BMI) [Ratio] 30.11 kg/m2 Kayla RUIZ-C Work Phone: [facility] 02-25-2024 14:35-0400 Body weight 100.7 kg Kayla Muse PA-C Work Phone: [facility] 02-25-2024 14:35-0400 Heart rate 98 /min Kayla Muse PA-C Work Phone: [facility] 02-25-2024 14:35-0400 SaO2% (BldA) [Mass fraction] 96 % Kayla Muse PA-C Work Phone: [facility] 01-18-2024 08:05-0400 Body height 182.9 cm Neymar Xavier MD Work Phone: [facility] 01-18-2024 08:05-0400 Body mass index (BMI) [Ratio] 30.38 kg/m2 Neymar Xavier MD Work Phone: [facility] 01-18-2024 08:05-0400 Body weight 101.61 kg Neymar Xavier MD Work Phone: [facility] 01-18-2024 08:05-0400 Diastolic blood pressure 73 mm[Hg] Neymar Xavier MD Work Phone: [facility] 01-18-2024 08:05-0400 Heart rate 84 /min Neymar Xavier MD Work Phone: [facility] 01-18-2024 08:05-0400 Systolic blood pressure 139 mm[Hg] Neymar Xavier MD Work Phone: [facility] 09-16-2023 09:22-0400 Body height 182.9 cm Neymar Xavier MD Work Phone: [facility] 09-16-2023 09:22-0400 Body mass index (BMI) [Ratio] 30.65 kg/m2 Neymar Xavier MD Work Phone: [facility] 09-16-2023 09:22-0400 Body weight 102.51 kg Neymar Xavier MD Work Phone: [facility] 09-16-2023 09:22-0400 Diastolic blood pressure 70 mm[Hg] Neymar Xavier MD Work Phone: [facility] 09-16-2023 09:22-0400 Heart rate 82 /min Neymar Xavier MD Work Phone: [facility] 09-16-2023 09:22-0400 Systolic blood pressure 115 mm[Hg] Neymar Xavier MD Work Phone: [facility] 05-18-2023 09:40-0500 Body height 182.9 cm Neymar Xavier MD Work Phone: [facility] 05-18-2023 09:40-0500 Body mass index (BMI) [Ratio] 31.6 kg/m2 Neymar Xavier MD Work Phone: 4(292)706-853723 [place] [address] 05-18-2023 09:40-0500 Body weight 105.69 kg Neymar Xavier MD Work Phone: [facility] 05-18-2023 09:40-0500 Diastolic blood pressure 68 mm[Hg] Neymar Xavier MD Work Phone: [facility] 05-18-2023 09:40-0500 Heart rate 68 /min Neymar Xavier MD Work Phone: [facility] 05-18-2023 09:40-0500 Systolic blood pressure 110 mm[Hg] Neymar Xavier MD Work Phone: [facility] 04-07-2023 12:42-0400 Body height 182.9 cm Neymar Xavier MD Work Phone: [facility] 04-07-2023 12:42-0400 Body mass index (BMI) [Ratio] 31.19 kg/m2 Neymar Xavier MD Work Phone: [facility] 04-07-2023 12:42-0400 Body weight 104.33 kg Neymar Xavier MD Work Phone: [facility] 04-07-2023 12:42-0400 Diastolic blood pressure 95 mm[Hg] Neymar Xavier MD Work Phone: [facility] 04-07-2023 12:42-0400 Heart rate 77 /min Neymar Xavier MD Work Phone: [facility] 04-07-2023 12:42-0400 Systolic blood pressure 136 mm[Hg] Neymar Xavier MD Work Phone: [facility] 01-12-2023 10:59-0400 Body height 182.9 cm Neymar Xavier MD Work Phone: [facility] 01-12-2023 10:59-0400 Body mass index (BMI) [Ratio] 32.01 kg/m2 Neymar Xavier MD Work Phone: [facility] 01-12-2023 10:59-0400 Body weight 107.05 kg Neymar Xavier MD Work Phone: [facility] 01-12-2023 10:59-0400 Diastolic blood pressure 82 mm[Hg] Neymar Xavier MD Work Phone: [facility] 01-12-2023 10:59-0400 Heart rate 84 /min Neymar Xavier MD Work Phone: [facility] 01-12-2023 10:59-0400 Systolic blood pressure 128 mm[Hg] Neymar Xavier MD Work Phone: [facility] 09-10-2022 11:20-0400 Body height 182.9 cm Neymar Xavier MD Work Phone: [facility] 09-10-2022 11:20-0400 Body mass index (BMI) [Ratio] 31.87 kg/m2 Neymar Xavier MD Work Phone: [facility] 09-10-2022 11:20-0400 Body weight 106.59 kg Neymar Xavier MD Work Phone: [facility] 09-10-2022 11:20-0400 Diastolic blood pressure 84 mm[Hg] Neymar Xavier MD Work Phone: [facility] 09-10-2022 11:20-0400 Heart rate 74 /min Neymar Xavier MD Work Phone: [facility] 09-10-2022 11:20-0400 Systolic blood pressure 138 mm[Hg] Neymar Xavier MD Work Phone: [facility] 05-14-2022 15:09-0500 Body height 182.88 cm Neymar Xavier Work Phone: [facility] Work Phone: 05-14-2022 15:09-0500 Body mass index (BMI) [Ratio] 32.96 kg/m2 Neymar Xavier Work Phone: [facility] Work Phone: 05-14-2022 15:09-0500 Body surface area Derived from formula 2.31 m2 Neymar Xavier Work Phone: [facility] Work Phone: 05-14-2022 15:09-0500 Body weight 110.22 kg Neymar Xavier Work Phone: [facility] Work Phone: 05-14-2022 15:09-0500 Diastolic blood pressure 78 mm[Hg] Nemyar Xavier Work Phone: [facility] Work Phone: 05-14-2022 15:09-0500 Heart rate 88 /min Neymar Princess Tavallaee Work Phone: [facility] Work Phone: 05-14-2022 15:09-0500 Systolic blood pressure 138 mm[Hg] Neymar Princess Tavallaee Work Phone: [facility] Work Phone: 01-08-2022 13:42-0400 Body height 182.88 cm Neymar Princess Tavallaee Work Phone: [facility] Work Phone: 01-08-2022 13:42-0400 Body mass index (BMI) [Ratio] 32.96 kg/m2 Neymar Princess Tavallaee Work Phone: [facility] Work Phone: 01-08-2022 13:42-0400 Body surface area Derived from formula 2.31 m2 Neymar Princess Tavallaee Work Phone: [facility] Work Phone: 01-08-2022 13:42-0400 Body weight 110.22 kg Neymar Princess Tavallaee Work Phone: [facility] Work Phone: 01-08-2022 13:42-0400 Diastolic blood pressure 90 mm[Hg] Neymar Princess Tavallaee Work Phone: [facility] Work Phone: 01-08-2022 13:42-0400 Heart rate 92 /min Neymar M Tavallaee Work Phone: [facility] Work Phone: 01-08-2022 13:42-0400 Systolic blood pressure 138 mm[Hg] Neymar M Tavallaee Work Phone: [facility] Work Phone: 09-10-2021 14:38-0400 Body height 182.88 cm Neymar Princess Tavallaee Work Phone: [facility] Work Phone: 09-10-2021 14:38-0400 Body mass index (BMI) [Ratio] 32.55 kg/m2 Neymar Princess Tavallaee Work Phone: [facility] Work Phone: 09-10-2021 14:38-0400 Body surface area Derived from formula 2.3 m2 Neymar Princess Tavallaee Work Phone: [facility] Work Phone: 09-10-2021 14:38-0400 Body weight 108.86 kg Neymar Princess Lopezallaee Work Phone: [facility] Work Phone: 09-10-2021 14:38-0400 Diastolic blood pressure 82 mm[Hg] Neymar Princess Tavallaee Work Phone: [facility] Work Phone: 09-10-2021 14:38-0400 Heart rate 110 /min Neymar Lopezallaee Work Phone: [facility] Work Phone: 09-10-2021 14:38-0400 Systolic blood pressure 134 mm[Hg] Neymar Princess Tavallaee Work Phone: [facility] Work Phone: 05-14-2021 12:41-0500 Body height 182.88 cm Neymar Princess Tavallaee Work Phone: [facility] Work Phone: 11-16-2021 12:41-0500 Body mass index (BMI) [Ratio] 31.19 kg/m2 Neymar Princess Tavallaee Work Phone: [facility] Work Phone: 05-14-2021 12:41-0500 Body surface area Derived from formula 2.26 m2 Neymar Princess Tavallaee Work Phone: [facility] Work Phone: 05-14-2021 12:41-0500 Body weight 104.33 kg Neymar Princess Tavallaee Work Phone: [facility] Work Phone: 05-14-2021 12:41-0500 Diastolic blood pressure 80 mm[Hg] Neymar Princess Tavallaee Work Phone: [facility] Work Phone: 05-14-2021 12:41-0500 Heart rate 70 /min Neymar Princess Tavallaee Work Phone: [facility] Work Phone: 05-14-2021 12:41-0500 Systolic blood pressure 130 mm[Hg] Neymar Princess Tavallaee Work Phone: [facility] Work Phone: 01-08-2021 12:37-0400 Body height 182.88 cm Neymar Princess Tavallaee Work Phone: [facility] Work Phone: 01-08-2021 12:37-0400 Body mass index (BMI) [Ratio] 31.19 kg/m2 Neymar Princess Tavallaee Work Phone: [facility] Work Phone: 01-08-2021 12:37-0400 Body surface area Derived from formula 2.26 m2 Neymar Princess Tavallaee Work Phone: [facility] Work Phone: 01-08-2021 12:37-0400 Body weight 104.33 kg Neymar M Tavallaee Work Phone: [facility] Work Phone: 01-08-2021 12:37-0400 Diastolic blood pressure 80 mm[Hg] Neymar M Tavallaee Work Phone: [facility] Work Phone: 01-08-2021 12:37-0400 Heart rate 78 /min Neymar M Tavallaee Work Phone: [facility] Work Phone: 01-08-2021 12:37-0400 Systolic blood pressure 128 mm[Hg] Neymar M Tavallaee Work Phone: [facility] Work Phone: 05-07-2020 16:49-0500 BMI (Body Mass Index) 31.87 kg/m2 Neymar Tavallaee [facility] Work Phone: 05-07-2020 16:49-0500 Body weight 106.6 kg Neymar Tavallaee [facility] Work Phone: 05-07-2020 16:49-0500 BP Diastolic 80 mm[Hg] Neymar Tavallaee [facility] Work Phone: Comment on above: Location: [facility]; Position: Sitting 05-07-2020 16:49-0500 BP Systolic 118 mm[Hg] Neymar Tavallaee [facility] Work Phone: Comment on above: Location: [facility]; Position: Sitting 05-07-2020 16:49-0500 BSA (Body Surface Area) 2.28 m2 Neymar Tavallaee [facility] Work Phone: 05-07-2020 16:49-0500 Height 182.88 cm Neymar Tavallaee [facility] Work Phone: 05-07-2020 16:49-0500 Pulse (Heart Rate) 72 /min Neymar Tavallaee [facility] Work Phone: 02-01-2020 17:51-0400 BMI (Body Mass Index) 32.69 kg/m2 Neymar Tavallaee [facility] Work Phone: 02-01-2020 17:51-0400 Body weight 109.32 kg Neymar Tavallaee [facility] Work Phone: 02-01-2020 17:51-0400 BP Diastolic 88 mm[Hg] Neymar Tavallaee [facility] Work Phone: 02-01-2020 17:51-0400 BP Systolic 144 mm[Hg] Neymar Tavallaee [facility] Work Phone: 02-01-2020 17:51-0400 BSA (Body Surface Area) 2.31 m2 Neymar Tavallaee [facility] Work Phone: 02-01-2020 17:51-0400 Height 182.88 cm Nemyar Tavallaee [facility] Work Phone: 02-01-2020 17:51-0400 Pulse (Heart Rate) 68 /min Neymar Tavallaee [facility] Work Phone: 04-28-2019 16:07-0400 BMI (Body Mass Index) 31.6 kg/m2 Linda Andres [facility] Work Phone: 04-28-2019 16:07-0400 Body weight 105.7 kg Linda Andres [facility] Work Phone: 04-28-2019 16:07-0400 BP Diastolic 76 mm[Hg] Linda Andres [facility] Work Phone: Comment on above: Location: [facility]; 04-28-2019 16:07-0400 BP Systolic 130 mm[Hg] Linda Littlejohnkins [facility] Work Phone: Comment on above: Location: [facility]; 04-28-2019 16:07-0400 BSA (Body Surface Area) 2.27 m2 Linda Mckenna [facility] Work Phone: 04-28-2019 16:07-0400 Height 182.88 cm Linda Mckenna [facility] Work Phone: 04-28-2019 16:07-0400 Pulse (Heart Rate) 80 /min Linda [facility] Internal Medicine Work Phone: Encounters Encounter Date Encounter Type Care Provider Facility Start: 05-05-2025 End: 05-05-2025 ambulatory [facility] Start: 05-02-2025 End: 05-02-2025 Transitional care manage srvc 14 day discharge Neymar Xavier MD Work Phone: [facility] Internal Medicine Comment on above: Closed fracture of r ight hip with routine healing, subsequent encounter (Primary Dx); Benign essential hypertension; Chronic atrial fibrillation, unspecified (Multi) Start: 05-02-2025 End: 05-02-2025 ambulatory [facility] Start: 04-28-2025 End: 04-28-2025 ambulatory [facility] Start: 04-21-2025 Non-patient / Non-visit Dr. Marcelino [facility]ac[facility] Work Phone: Start: 04-20-2025 Non-patient / Non-visit Dr. Marcelino Palacios [facility] Work Phone: Start: 04-19-2025 Non-patient / Non-visit Dr. Marcelino [facility]ac[facility] Work Phone: Start: 04-[facility] Start: 04-19-2025 End: 04-21-2025 Evaluation and management of inpatient Neymardoc Xavier Facility:[facility] Start: 04-13-2025 End: 04-13-2025 Office outpatient visit 15 minutes Neymar Xavier MD Work Phone: [facility] Internal Medicine Comment on above: Benign essential hyp ertension (Primary Dx); Chronic atrial fibrillation, unspecified (Multi) Start: 04-13-2025 End: 04-13-2025 ambulatory [facility] Start: 04-10-2025 End: 04-10-2025 ambulatory [facility] Start: 03-16-2025 End: 03-16-2025 Office outpatient visit 25 minutes Neymar Xavier MD Work Phone: [facility] Internal Medicine Comment on above: Primary 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 (Primary Dx); Benign essential hypertension Start: 03-16-2025 End: 03-16-2025 ambulatory [facility] Start: 03-13-2025 End: 03-13-2025 ambulatory [facility] Start: 02-20-2025 End: 02-20-2025 Subsequent hospital visit by physician [facility] Comment on above: Primary 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 Start: 02-20-2025 End: 02-20-2025 ambulatory [facility] Start: 02-13-2025 End: 02-13-2025 Office outpatient visit 25 minutes Neymar Xavier MD Work Phone: [facility] Internal Medicine Comment on above: Primary 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 (Primary Dx); Hypercholesterolemia; Type 2 diabetes mellitus with hyperglycemia, without long-term current use of insulin; Benign essential hypertension Start: 02-13-2025 End: 02-13-2025 ambulatory [facility] Start: 02-06-2025 End: 02-06-2025 ambulatory [facility] Start: 02-06-2025 End: 02-06-2025 Subsequent hospital visit by physician Aidan Howard 1 [facility] Comment on above: Left thigh pain Start: 02-06-2025 End: 02-06-2025 Office outpatient visit 25 minutes Neymar Xavier MD Work Phone: [facility] Internal Medicine Comment on above: Benign essential hyp ertension (Primary Dx); Type 2 diabetes mellitus with hyperglycemia, without long-term current use of insulin; Hypercholesterolemia; Hypertriglyceridemia; Left thigh pain Start: 02-06-2025 End: 02-06-2025 ambulatory [facility] Start: 01-17-2025 End: 01-17-2025 [facility] Start: 12-20-2024 End: 12-20-2024 ambulatory [facility] Start: 11-22-2024 End: 11-22-2024 ambulatory [facility] Start: 10-25-2024 End: 10-25-2024 ambulatory [facility] Start: 10-18-2024 End: 10-18-2024 Office outpatient visit 25 minutes Neymar Xavier MD Work Phone: [facility] Internal Medicine Comment on above: Benign essential hyp ertension (Primary Dx); Type 2 diabetes mellitus without complication, without long-term current use of insulin; Abnormal CT scan of lung Start: 10-18-2024 End: 10-18-2024 ambulatory [facility] Start: 10-13-2024 End: 10-13-2024 Subsequent hospital visit by physician Aidan Garcia 1 [facility] Comment on above: Abnormal CT scan of lung Start: 10-13-2024 End: 10-13-2024 ambulatory [facility] Start: 10-11-2024 End: 10-11-2024 ambulatory [facility] Start: 10-06-2024 End: 10-06-2024 ambulatory [facility] Start: 09-27-2024 End: 09-27-2024 Transitional care manage srvc 14 day discharge Neymar Xavier MD Work Phone: [facility] Internal Medicine Comment on above: Pneumonia of left lo wer lobe due to infectious organism (Primary Dx); Type 2 diabetes mellitus with hyperglycemia, without long-term current use of insulin; Benign essential hypertension; Abnormal CT scan of lung Start: 09-27-2024 End: 09-27-2024 ambulatory [facility] Start: 09-22-2024 Non-patient / Non-visit Dr. Marcelino betancourt [facility] Inpatient Physicians Work Phone: Start: 09-21-2024 Non-patient / Non-visit Dr. Garrett amaya DO [facility] Start: 09-20-2024 ambulatory Zeferino Estrada [facility]ilg[facility]riel ty:[facility] Start: 09-20-2024 End: 09-22-2024 Evaluation and management of inpatient Dr. Zeferino Estrada DO -Intensive Care Unit Work Phone: Start: 09-13-2024 End: 09-13-2024 [facility] Start: 08-16-2024 End: 08-16-2024 ambulatory [facility] Start: 08-01-2024 End: 08-01-2024 Assay of hemosiderin, quant Neymar Xavier MD Work Phone: [facility] Work Phone: Start: 08-01-2024 End: 08-01-2024 Patient encounter procedure Neymar Xavier MD Work Phone: [facility] Internal Medicine Comment on above: Routine general [...] of prostate Start: 08-01-2024 End: 08-01-2024 ambulatory [facility] Start: 08-01-2024 End: 08-01-2024 Encounter for general adult medical examination without abnormal findings [facility] Start: 07-19-2024 End: 07-19-2024 ambulatory [facility] Start: 07-04-2024 End: 07-04-2024 ambulatory [facility] Start: 06-20-2024 End: 06-20-2024 ambulatory [facility] Start: 05-24-2024 End: 05-24-2024 ambulatory [facility] Start: 02-25-2024 End: 02-25-2024 Office outpatient visit 25 minutes Kayla Muse PA-C Work Phone: [facility] Internal Medicine Comment on above: Pre-operative cleara nce (Primary Dx); Type 2 diabetes mellitus with hyperglycemia, without long-term current use of insulin (Multi); Chronic atrial fibrillation, unspecified (Multi); Benign essential hypertension Start: 02-25-2024 End: 02-25-2024 Preoperative state Kayla Muse PA-C Work Phone: [facility] Work Phone: Start: 02-25-2024 End: 02-25-2024 ambulatory [facility] Start: 02-25-2024 End: 02-25-2024 Encounter for other preprocedural examination [facility] Start: 02-25-2024 End: 02-25-2024 Preoperative state [address] Work Phone: Start: 02-25-2024 End: 02-25-2024 Subsequent hospital visit by physician Aidan Choudhary-Arcenio Fluoro 1 [facility] Comment on above: Pre-operative cleara nce Start: 01-18-2024 End: 01-18-2024 Office outpatient visit 25 minutes Neymar Xavier MD Work Phone: [facility] Internal Medicine Comment on above: Benign essential [...] Start: 01-11-2024 End: 01-11-2024 [facility] Start: 01-11-2024 End: 01-11-2024 Encounter for general adult medical examination without abnormal findings NEYMAR XAVIER [facility] Start: 09-16-2023 End: 09-16-2023 Assay of hemosiderin, quant Neymar Xavier MD Work Phone: [facility] Work Phone: Start: 09-16-2023 End: 09-16-2023 Patient encounter procedure Neymar Xavier MD Work Phone: [facility] Internal Medicine Comment on above: Routine general medi louis examination at health care facility (Primary Dx); Type 2 diabetes mellitus without complication, without long-term current use of insulin (CMS/HCC); Benign essential hypertension; Type 2 diabetes mellitus with hyperglycemia, without long-term current use of insulin (CMS/HCC); Chronic atrial fibrillation, unspecified (CMS/HCC); Hypercholesterolemia; Hypertriglyceridemia; Special screening for malignant neoplasm of prostate Start: 09-09-2023 End: 09-09-2023 ambulatory [facility] Start: 05-18-2023 End: 05-18-2023 Office outpatient visit 25 minutes Neymar Xavier MD Work Phone: [facility] Medicine Comment on above: Benign essential hyp ertension (Primary Dx); Chronic atrial fibrillation, unspecified (CMS/HCC); Type 2 diabetes mellitus with hyperglycemia, without long-term current use of insulin (CMS/HCC); Hypercholesterolemia; Anemia, unspecified type; Muscle cramp Start: 04-08-2023 End: 04-08-2023 Subsequent hospital visit by physician Aidan Howard 1 [facility] Comment on above: Localized swelling o n left hand; Lymphedema, not elsewhere classified Start: 04-07-2023 End: 04-07-2023 Office outpatient visit 25 minutes eNymar Xavier MD Work Phone: [facility] Medicine Comment on above: Cellulitis, unspecif ied cellulitis site (Primary Dx); Tenosynovitis of hand; Localized swelling on left hand; Type 2 diabetes mellitus with hyperglycemia, without long-term current use of insulin (CMS/HCC) Start: 02-17-[address] Neymar Xavier Facility:[id number] Start: 02-03-[address] Neymar Xavier Facility:[id number] Start: 01-12-2023 End: 01-12-2023 Office outpatient visit 25 minutes Neymar Xavier MD Work Phone: [facility] Medicine Comment on above: Type 2 diabetes nilsa itus without complication, without long- term current use of insulin (CMS/HCC); Psoriatic arthritis (CMS/HCC); Chronic atrial fibrillation, unspecified (CMS/HCC); Benign essential hypertension; Hypercholesterolemia; Hypertriglyceridemia; Healthcare maintenance Start: 01-12-2023 End: 01-12-2023 Patient encounter status Neymar Xavier MD Work Phone: [facility] Work Phone: Start: 01-06-[address] Neymar Xavier Facility:[id number] Start: 12-23-[address] Neymar Xavier Facility:[id number] Start: 11-18-[address] Neymar Xavier Facility:[id number] Start: 10-14-[address] Neymar Xavier Facility:[id number] Start: 09-10-2022 Chart Update Neymar whitt Work Phone: [facility] Internal Medicine Work Phone: Start: 09-10-2022 End: 09-10-2022 Assay of hemosiderin, quant Neymar Xavier MD Work Phone: [facility] Work Phone: Start: 09-10-2022 End: 09-10-2022 Patient encounter procedure Neymar Xavier MD Work Phone: [facility] Internal Medicine Comment on above: Type 2 [...] encounter status Neymar Xavier MD Work Phone: [facility] Work Phone: Start: 09-10-[address] Neymar Xavier Facility:[id number] Start: 09-02-2022 Chart Update Neymar whitt Work Phone: [facility] Internal Medicine Work Phone: Start: 08-21-2022 AUDIT Neymar whitt Work Phone: [facility] Internal Medicine Work Phone: Start: 08-06-2022 Chart Update Neymar whitt Work Phone: [facility] Internal Medicine Work Phone: Start: 08-06-[address] Neymar Xavier Facility:[id number] Start: 07-08-2022 Chart Update Neymar whitt Work Phone: [facility] Internal Medicine Work Phone: Start: 07-08-[address] Neymar Xavier Facility:[id number] Start: 06-11-2022 Chart Update Neymar whitt Work Phone: [facility] Internal Medicine Work Phone: Start: 06-11-[address] Neymar Xavier Facility:[id number] Start: 05-14-2022 Office outpatient vi sit 25 minutes Neymar Xavier Work Phone: [facility] Internal Medicine Work Phone: Start: 05-14-2022 ambulatory Neymar Xavier Facil ity:[id number] Start: 05-14-2022 Chart Update Neymar whitt Work Phone: [facility] Internal Medicine Work Phone: Start: 05-14-[address] Neymar Xavier Facility:[id number] Start: 04-16-2022 Chart Update Neymar whitt Work Phone: [facility] Internal Medicine Work Phone: Start: 04-16-[address] Neymar Xavier Facility:[id number] Start: 04-01-2022 Chart Update Neymar whitt Work Phone: [facility] Internal Medicine Work Phone: Start: 04-01-[address] Neymar Xavier Facility:[id number] Start: 03-12-2022 AUDIT Neymar Lopeza llaee Work Phone: [facility] Internal Medicine Work Phone: Start: 03-11-2022 Chart Update Neymar Sánchez Tava llaee Work Phone: [facility] Medicine Work Phone: Start: 03-11-[address] Neymar Xavier Facility:[id number] Start: 01-08-2022 Office outpatient vi sit 25 minutes Neymar Lopezallaecrystal Work Phone: [facility] Internal Medicine Work Phone: Start: 01-08-2022 ambulatory Neymar Xavier Facil ity:[id number] Start: 01-02-2022 Chart Update Neymar Lopeza llaee Work Phone: [facility] Internal Medicine Work Phone: Start: 12-23-2021 Chart Update Neymar Sánchez Tava llaee Work Phone: [facility] Medicine Work Phone: Start: 11-19-2021 Chart Update Neymar Sánchez Tava llaee Work Phone: [facility] Medicine Work Phone: Start: 10-21-2021 Chart Update Neymar Lopeza llaee Work Phone: [facility] Medicine Work Phone: Start: 10-14-2021 Chart Update Neymar Sánchez Tava llaee Work Phone: [facility] Medicine Work Phone: Start: 09-12-2021 Chart Update Neymar Sánchez Tava llaee Work Phone: [facility] Internal Medicine Work Phone: Start: 09-10-2021 Adv care pln/ no alt dcsn mkr docd or refusal Neymar M Tavallaee Work Phone: [facility] Internal Medicine Work Phone: Start: 09-10-2021 ambulatory Neymarmanny Eddyaee Facil ity:[id number] Start: 09-05-2021 COLON, Provider: Neymar Xavier, Status: Pen, Time: 8:30 AM Neymar Lopezallaee Work Phone: [facility] Internal Medicine Work Phone: Start: 09-03-2021 Chart Update Neymar Sánchez Tava llaee Work Phone: [facility] Medicine Work Phone: Start: 09-03-2021 Chart Update Neymar Sánchez Tava llaee Work Phone: [facility] Work Phone: Start: 08-22-2021 Chart Update Neymar Sánchez Tava llaee Work Phone: [facility] Work Phone: Start: 08-08-2021 Chart Update Neymar Sánchez Tava llaee Work Phone: [facility] Medicine Work Phone: Start: 07-17-2021 AUDIT Neymar Sánchez Tava llaee Work Phone: [facility] Medicine Work Phone: Start: 07-05-2021 AUDIT Neymar Sánchez Tava llaee Work Phone: [facility] Medicine Work Phone: Start: 06-12-2021 Chart Update Neymar Sánchez Tava llaee Work Phone: [facility] Medicine Work Phone: Start: 05-14-2021 Chart Update Neymar Sánchez Tava llaee Work Phone: [facility] Work Phone: Start: 05-14-2021 Office outpatient vi sit 25 minutes Neymar M Tavallaee Work Phone: [facility] Medicine Work Phone: Start: 05-07-2021 Chart Update Neymar M Tava llaee Work Phone: [facility] Medicine Work Phone: Start: 03-13-2021 Chart Update Neymar M Tava llaee Work Phone: [facility] Work Phone: Start: 02-12-2021 Chart Update Neymar M Tava llaee Work Phone: [facility] Work Phone: Start: 01-27-2021 Chart Update Neymar Sánchez Tava llaee Work Phone: [facility] Medicine Work Phone: Start: 01-14-2021 AUDIT Neymar Princess Tava llaee Work Phone: [facility] Medicine Work Phone: Start: 01-10-2021 Chart Update Neymar M Tava llaee Work Phone: [facility] Medicine Work Phone: Start: 01-08-2021 Office outpatient vi sit 25 minutes Neymar Sánchez Tavallaee Work Phone: [facility] Work Phone: Start: 12-25-2020 Chart Update Neymar Sánchez Tava llaee Work Phone: [facility] Work Phone: Start: 11-18-2020 Chart Update Neymar M Tava llaee Work Phone: [facility] Medicine Work Phone: Start: 05-07-2020 Patient encounter procedure Neymar Marshalle [facility] Internal [facility] Work Phone: Start: 02-01-2020 Patient encounter procedure Neymar Marshalle [facility] Work Phone: Start: 11-01-2019 Patient encounter procedure Neymar Marshalle [facility] Work Phone: Start: 08-03-2019 Patient encounter procedure Neymar Marshalle [facility] Work Phone: Start: 07-04-2019 Patient encounter procedure Neymar Marshalle [facility] Work Phone: Start: 04-28-2019 Patient encounter procedure Neymar Marshalle [facility] Work Phone: Procedures Date Procedure Procedure Detail Performing Clinician Start: 04-21-2025 CT of chest without contrast Dr. Neymar Xavier MD Work Phone: Start: 04-21-[address] Neymar Xavier MD Work Phone: Start: 04-20-2025 Plain X-ray of hip Dr. Neymar Xavier MD Work Phone: Start: 04-20-2025 Revision uncemented total hip replacement Dr. Neymar Xavier MD Work Phone: Start: 04-19-2025 Vitamin D, 25-hydrox y measurement Dr. Neymar Xavier MD Work Phone: Comment on above: Vitamin D StatusDefi ciency: <20 ng/mL (50nmol/L)Insufficiency: 20-30 ng/mL (50-75 nmol/L)Sufficiency: 30-100 ng/mL (75-250 nmol/L)Toxicity: >100 ng/mL (>250 nmol/L) Start: 04-19-2025 Plain chest X-ray Dr. Princess Xavier MD Work Phone: Start: 04-19-2025 Plain x-ray of pelvi s and lower extremity Dr. Neymar Xavier MD Work Phone: Start: 02-20-2025 Mri any jt lower ext rem w/o contrast matrl Neymar Xavier MD Work Phone: Start: 02-06-2025 Radiologic examinati on femur minimum 2 views Neymar Xavier MD Work Phone: Start: 02-06-2025 Dup-scan xtr veins unilateral/limited study Neymar Xavier MD Work Phone: Start: 01-30-2025 Lipid 1995 panel - S [place] or Plasma Neymar Xavier MD Work Phone: Start: 09-21-2024 CT of thorax, abdome n and pelvis with contrast Dr. Stone Leong DO Work Phone: Start: 09-20-2024 CT [...] Muse PA-C Work Phone: Start: 01-11-2024 Lipid 1996 panel - S [place] or Plasma Neymar Xavier MD Work Phone: Start: 09-09-2023 CBC W Auto Different ial panel - Blood NEYMAR TAVALLAEE Start: 09-09-2023 Comprehensive metabo lic 1999 panel - Serum or Plasma NEYMAR TAVALLAEE [...] Neymar Tavallaee Start: 11-01-2019 Comprehensive metabo lic 1999 panel Neymar Tavallaee Start: 11-01-2019 Hemoglobin glycosylated [...] EJACULATION WITHIN 48 HRS. [facility] VOL24,NO.2, , PG.339 Performed By: #### [id number] #### JANES [employer] [address] [place] [address] Start: 11-05-2017 Colonoscopy Neymar Xavier Work Phone: Comment on above: DIVERTICULOSIS, H/O COLON POLYPS, REPEAT 3 YEARS; Arthroplasty of knee Linda moore Comment on above: /03/2007; End: 11-05-2017 Colonoscopy Linda Andres Prosthetic arthropla sty of the hip Linda Andres Comment on above: OCTOBER 2006; Total replacement of hip [facility] radha Xavier Work Phone: Comment on above: OCTOBER 2006; Plan of Treatment Date Care Activity Detail Author Start: 02-13-2026 Urine screening for protein Diabetes: Urine Protein Screening [facility] Start: 01-30-2026 Lipid panel Lipid Panel [facility] Start: 08-16-2025 End: 08-16-2025 Patient encounter procedure 08/16/2025 9:00 AM EST Office Visit [facility] [address] [place] [address] Neymar Xavier MD [address] [place] [address] [facility] Start: 08-02-2025 Medicare Annual Wellness Visit Medicare Annual Wellness Visit (AWV) [facility] Start: 08-01-2025 End: 08-01-2025 Patient encounter procedure 08/01/2025 9:30 AM EST Office Visit [facility] [address] [place] [address] Neymar Xavier MD [address] [place] [address] [facility] Internal [facility] Start: 06-19-2025 End: 06-19-2025 Patient encounter procedure 06/19/2025 8:00 AM EST Office Visit [facility] [address] [place] [address] Neymar Xavier MD [address] [place] [address] [facility] Start: 05-16-2025 Hemoglobin A1c measurement Diabetes: Hemoglobin A1C [facility] Start: 05-09-2025 Hemoglobin A1c measurement Diabetes: Hemoglobin A1C [facility] Start: 05-08-2025 End: 05-08-2025 Anticoagulant drug monitoring 05/08/2025 9:45 AM EST Anticoagulation - Warfarin Visit [address] [address] [facility] Start: 05-05-2025 End: 05-05-2025 Anticoagulant drug monitoring 05/05/2025 11:30 AM EST Anticoagulation - Warfarin Visit [address] [address] [facility] Start: 05-02-2025 Hemoglobin A1c measurement Diabetes: Hemoglobin A1C [facility] Start: 04-21-2025 [facility] Start: 04-21-2025 Referral to service [facility] Start: 04-20-2025 Oxygen therapy [facility] Start: 04-20-2025 Provision of overbed trapeze [facility] Start: 04-20-2025 End: 04-20-2025 [facility] Start: 04-20-2025 Ambulation therapy management [facility] Start: 04-20-2025 Application of device [facility] Start: 04-20-2025 Assessment of risk o f venous thromboembolism [facility] Start: 04-20-2025 Catheterization of vein [facility] Start: 04-20-2025 Exercises [facility] Start: 04-20-2025 Following clinical pathway protocol [facility] Start: 04-20-2025 Incentive spirometry [facility] Start: 04-20-2025 Introduction of urinary catheter [facility] Start: 04-20-2025 Measuring intake and output [facility] Start: 04-20-2025 Neurovascular assessment [facility] Start: 04-20-[address] [facility] Start: 04-20-2025 Procedure discontinued [facility] Start: 04-20-2025 Provision of activit y privileges [facility] Start: 04-20-2025 Recommendation to continue with treatment [facility] Start: 04-20-2025 Referral for physica l therapy [facility] Start: 04-20-2025 Referral to occupational therapist [facility] Start: 04-20-2025 Vital signs measurements [facility] Start: 04-20-2025 Wound care [facility] Start: 04-20-2025 Referral for physica l therapy [facility] Start: 04-20-2025 Referral to occupational therapist [facility] Start: 04-20-2025 Following clinical pathway protocol [facility] Start: 04-20-2025 Measuring intake and output [facility] Start: 04-20-2025 Measuring intake and output [facility] Start: 04-19-2025 Measuring intake and output [facility] Start: 04-19-2025 Following clinical pathway protocol [facility] Start: 04-19-2025 Application of ice collar, cap or bag [facility] Start: 04-19-2025 Assessment of risk o f venous thromboembolism [facility] Start: 04-19-2025 Bedrest [facility] Start: 04-19-2025 Care regimes management [facility] [facility] Start: 04-19-2025 Consultation [facility] Start: 04-19-2025 Insertion of cathete r into peripheral vein [facility] Start: 04-19-2025 Neurovascular assessment [facility] Start: 04-19-2025 Notification of physician [facility] Start: 04-19-2025 Providing care according to standard [facility] Start: 04-19-2025 Referral to service [facility] Start: 04-19-2025 Skin care [facility] Start: 04-19-2025 End: 04-19-2025 [facility] Start: 04-19-2025 Measuring intake and output [facility] Start: 04-19-2025 Admission procedure [facility] Start: 04-13-2025 End: 04-13-2025 Patient encounter procedure 04/13/2025 3:30 PM EDT Office Visit [facility] Internal Medicine [address] [place] [address] Neymar Xavier MD [address] [place] [address] [facility] Internal [facility] Start: 04-10-2025 End: 04-10-2025 Anticoagulant drug monitoring 04/10/2025 9:30 AM EDT Anticoagulation - Warfarin Visit [facility] [address] [address] [facility] Start: 03-16-2025 End: 03-16-2025 Patient encounter procedure 03/16/2025 4:00 PM EDT Office Visit [facility] Internal Medicine [address] [place] [address] Neymar Xavier MD [address] [place] [address] [facility] Start: 03-13-2025 End: 03-13-2025 Anticoagulant drug monitoring 03/13/2025 10:00 AM EDT Anticoagulation - Warfarin Visit [place] [id number] [address] [facility] Start: 02-27-2025 Influenza vaccination Influenza Vacc ine (#1) [facility] Start: 02-14-2025 End: 02-14-2025 Anticoagulant drug monitoring 02/14/2025 10:00 AM EDT Anticoagulation - Warfarin Visit [address] [phone] [facility] Start: 02-13-2025 End: 02-13-2026 Comprehensive metabolic 2000 panel - Serum or Plasma Comprehensive Metabolic Panel Lab Routine Hypercholesterolemia Primary osteoarthritis of left hip Expected: 02/13/2025 (Approximate), Expires: 02/13/2026 [facility] Work Phone: Comment on above: Expected: 02/13/2025 (Approximate), Expires: 02/13/2026 Start: 02-13-2025 End: 02-13-2026 Hemoglobin A1c/Hemoglobin.total in Blood Hemoglobin A1C Lab Routine Type 2 diabetes mellitus with hyperglycemia, without long-term current use of insulin Expected: 02/13/2025 (Approximate), Expires: 02/13/2026 [facility] Work Phone: Comment on above: Expected: 02/13/2025 (Approximate), Expires: 02/13/2026 Start: 02-13-2025 End: 02-13-2026 Microalbumin/Creatinin e [Mass Ratio] in Urine Albumin-Creatinine Ratio, Urine Random Lab Routine Type 2 diabetes mellitus with hyperglycemia, without long-term current use of insulin Expected: 02/13/2025 (Approximate), Expires: 02/13/2026 [facility] Work Phone: Comment on above: Expected: 02/13/2025 (Approximate), Expires: 02/13/2026 Start: 02-13-2025 End: 02-13-2026 MR Hip - left WO contrast MR hip left wo IV contrast Imaging Routine Primary osteoarthritis of left hip Expected: 02/13/2025, Expires: 02/13/2026 [facility] Service Area Work Phone: Comment on above: Expected: 02/13/2025 , Expires: 02/13/2026 Start: 02-13-2025 End: 02-13-2025 Patient encounter procedure 02/13/2025 9:00 AM EDT Office Visit [facility] Internal Medicine [address] [place] [phone] Neymar Xavier MD [address] [place] [address] [facility] Start: 02-06-2025 End: 02-06-2026 Comprehensive metabolic 2000 panel - Serum or Plasma Comprehensive Metabolic Panel Lab Routine Benign essential hypertension Type 2 diabetes mellitus with hyperglycemia, without long-term current use of insulin Hypercholesterolemia Hypertriglyceridemia Expected: 02/06/2025 (Approximate), Expires: 02/06/2026 [facility] Work Phone: Comment on above: Expected: 02/06/2025 (Approximate), Expires: 02/06/2026 Start: 02-06-2025 End: 02-06-2026 Hemoglobin A1c/Hemoglobin.total in Blood Hemoglobin A1C Lab Routine Type 2 diabetes mellitus with hyperglycemia, without long-term current use of insulin Expected: 02/06/2025 (Approximate), Expires: 02/06/2026 [facility] Work Phone: Comment on above: Expected: 02/06/2025 (Approximate), Expires: 02/06/2026 Start: 02-06-2025 End: 02-06-2027 Lower extremity venous duplex left Lower extremity venous duplex left Vascular Ultrasound Routine Left thigh pain Expected: 02/06/2025 (Approximate), Expires: 02/06/2027 [facility] Work Phone: Comment on above: Expected: 02/06/2025 (Approximate), Expires: 02/06/2027 Start: 02-06-2025 End: 02-06-2026 XR Femur - left 2 Views XR femur left 2+ views Imaging Routine Left thigh pain Expected: 02/06/2025, Expires: 02/06/2026 [facility] Work Phone: Comment on above: Expected: 02/06/2025 , Expires: 02/06/2026 Start: 02-06-2025 End: 02-06-2025 Patient encounter procedure 02/06/2025 9:00 AM EDT Office Visit [facility] Internal [facility] [address] [place] [address] Neymar Xavier MD [address] [place] [address] [facility] Start: 01-10-2025 Lipid panel Lipid Panel [facility] Start: 10-25-2024 End: 10-25-2024 Anticoagulant drug monitoring 10/25/2024 10:15 AM EDT Anticoagulation - Warfarin Visit [address] [address] [facility] Start: 10-18-2024 End: 10-18-2024 Patient encounter procedure 10/18/2024 11:15 AM EDT Office Visit [facility] [address] [place] [address] Neymar Xavier MD [address] [place] [address] [facility] Start: 10-11-2024 End: 10-11-2024 Anticoagulant drug monitoring 10/11/2024 10:00 AM EDT Anticoagulation - Warfarin Visit [address] [address] [facility] Start: 10-04-2024 End: 10-04-2024 Patient encounter procedure 10/04/2024 11:45 AM EDT Office Visit [facility] Internal [facility] [address] [place] [address] Neymar Xavier MD [address] [place] [address] [facility] Start: 10-02-2024 Hemoglobin A1c measurement Diabetes: Hemoglobin A1C [facility] Start: 09-27-2024 End: 09-27-2025 CBC W Auto Differential panel - Blood CBC and Auto Differential Lab Routine Type 2 diabetes mellitus with hyperglycemia, without long-term current use of insulin Pneumonia of left lower lobe due to infectious organism Benign essential hypertension Abnormal CT scan of lung Expected: 09/27/2024 (Approximate), Expires: 09/27/2025 [facility] Work Phone: Comment on above: Expected: 09/27/2024 (Approximate), Expires: 09/27/2025 Start: 09-27-2024 End: 09-27-2025 Comprehensive metabolic 2000 panel - Serum or Plasma Comprehensive Metabolic Panel Lab Routine Type 2 diabetes mellitus with hyperglycemia, without long-term current use of insulin Pneumonia of left lower lobe due to infectious organism Benign essential hypertension Abnormal CT scan of lung Expected: 09/27/2024 (Approximate), Expires: 09/27/2025 [facility] Work Phone: Comment on above: Expected: 09/27/2024 (Approximate), Expires: 09/27/2025 Start: 09-27-2024 End: 09-27-2025 CT Chest W contrast IV CT chest w IV contrast Imaging Routine Abnormal CT scan of lung Expected: 09/27/2024, Expires: 09/27/2025 [facility] Work Phone: Comment on above: Expected: 09/27/2024 , Expires: 09/27/2025 Start: 09-27-2024 End: 09-27-2025 Protein electrophoresis panel - Serum or Plasma Serum Protein Electrophoresis Lab Routine Abnormal CT scan of lung Expected: 09/27/2024 (Approximate), Expires: 09/27/2025 [facility] Work Phone: Comment on above: Expected: 09/27/2024 (Approximate), Expires: 09/27/2025 Start: 09-27-2024 End: 09-27-2025 Urine Protein Electrophoresis Urine Protein Electrophoresis Lab Routine Abnormal CT scan of lung Expected: 09/27/2024 (Approximate), Expires: 09/27/2025 [facility] Service Area Work Phone: Comment on above: Expected: 09/27/2024 (Approximate), Expires: 09/27/2025 Start: 09-22-[address] [facility] Start: 09-21-2024 [facility] Start: 09-21-2024 Care planning and problem solving actions [facility] Start: 09-21-2024 Verification routine [facility] Start: 09-20-2024 Following clinical pathway protocol [facility] Start: 09-20-2024 Assessment of risk o f venous thromboembolism [facility] Start: 09-20-2024 Bacteria identified in Sputum by Culture [facility] Start: 09-20-2024 Cardiac monitoring [facility] Start: 09-20-2024 Care regimes management [facility] Start: 09-20-2024 Catheterization of vein [facility] Start: 09-20-2024 Elevation of head of bed [facility] Start: 09-20-2024 Insertion of cathete r into peripheral vein [facility] Start: 09-20-2024 Measuring intake and output [facility] Start: 09-20-2024 Notification of physician [facility] Start: 09-20-2024 Oxygen therapy [facility] Start: 09-20-2024 Providing care according to standard [facility] Start: 09-20-2024 Provision of activit y privileges [facility] Start: 09-20-2024 Referral to occupational therapist [facility] Start: 09-20-2024 Referral to service [facility] Start: 09-20-2024 Respiratory secretio n precautions [facility] Start: 09-20-2024 Vital signs measurements [facility] Start: 09-20-2024 Measurement of occul t blood in stool specimen using immunoassay [facility] Start: 09-20-2024 Gas panel - Arterial blood [facility] Start: 09-20-2024 End: 09-20-2024 [facility] Start: 09-20-2024 Verification routine [facility] Start: 09-20-2024 Admission procedure [facility] Start: 09-20-2024 CT Chest WO contrast [facility] Start: 09-20-2024 CT of chest without contrast Chest without Contrast [facility] Start: 09-20-2024 Hospital admission, emergency, from emergency room, medical nature [facility] Start: 09-20-2024 Continuous positive airway pressure ventilation treatment [facility] Start: 09-20-2024 [facility] Start: 09-20-2024 Continuous pulse oximetry [facility] Start: 09-20-2024 End: 09-20-2024 [facility] Start: 09-20-2024 Bacteria identified in Blood by Culture Blood Culture [facility] Start: 09-20-2024 Bacteria identified in Urine by Culture Urine Culture [facility] Start: 09-20-2024 Patient referral to dietitian [facility] Start: 09-16-2024 Medicare Annual Wellness Visit Medicare Annual Wellness Visit (AWV) [facility] Start: 08-16-2024 End: 08-16-2024 Anticoagulant drug monitoring 08/16/2024 10:30 AM EST Anticoagulation - Warfarin Visit [place] [id number] [address] [facility] Start: 08-01-2024 End: 08-01-2025 Comprehensive metabolic 2000 panel - Serum or Plasma Comprehensive Metabolic Panel Lab Routine Benign essential hypertension Type 2 diabetes mellitus with hyperglycemia, without long-term current use of insulin Hypercholesterolemia Hypertriglyceridemia Type 2 diabetes mellitus with diabetic cataract, without long-term current use of insulin Psoriatic arthritis (Multi) Chronic atrial fibrillation, unspecified (Multi) Expected: 08/01/2024 (Approximate), Expires: 08/01/2025 [facility] Service Area Work Phone: Comment on above: Expected: 08/01/2024 (Approximate), Expires: 08/01/2025 Start: 08-01-2024 End: 08-01-2025 Hemoglobin A1c/Hemoglobin.total in Blood Hemoglobin A1C Lab Routine Type 2 diabetes mellitus with hyperglycemia, without long-term current use of insulin Expected: 08/01/2024 (Approximate), Expires: 08/01/2025 [facility] Work Phone: Comment on above: Expected: 08/01/2024 (Approximate), Expires: 08/01/2025 Start: 08-01-2024 End: 08-01-2025 Lipid 1996 panel - Serum or Plasma Lipid Panel Lab Routine Hypercholesterolemia Hypertriglyceridemia Expected: 08/01/2024 (Approximate), Expires: 08/01/2025 [facility] Work Phone: Comment on above: Expected: 08/01/2024 (Approximate), Expires: 08/01/2025 Start: 08-01-2024 End: 08-01-2025 Prostate specific Ag [Mass/volume] in Serum or Plasma Prostate Specific Antigen, Screen Lab Routine Special screening for malignant neoplasm of prostate Expected: 08/01/2024 (Approximate), Expires: 08/01/2025 [facility] Work Phone: Comment on above: Expected: 08/01/2024 (Approximate), Expires: 08/01/2025 Start: 08-01-2024 End: 08-01-2025 TSH with reflex to Free T4 if abnormal TSH with reflex to Free T4 if abnormal Lab Routine Hypercholesterolemia Psoriatic arthritis (Multi) Chronic atrial fibrillation, unspecified (Multi) Expected: 08/01/2024 (Approximate), Expires: 08/01/2025 [facility] Work Phone: Comment on above: Expected: 08/01/2024 (Approximate), Expires: 08/01/2025 Start: 05-27-2024 End: 02-24-2025 Comprehensive metabolic 2000 panel - Serum or Plasma Comprehensive metabolic panel Lab Routine Type 2 diabetes mellitus with hyperglycemia, without long-term current use of insulin (Multi) Expected: 05/27/2024 (Approximate), Expires: 02/24/2025 [facility] Service Area Work Phone: Comment on above: Expected: 05/27/2024 (Approximate), Expires: 02/24/2025 Start: 05-27-2024 Hemoglobin A1c measurement Diabetes: Hemoglobin A1C [facility] Start: 05-27-2024 End: 02-24-2025 Hemoglobin A1c/Hemoglobin.total in Blood Hemoglobin A1C Lab Routine Type 2 diabetes mellitus with hyperglycemia, without long-term current use of insulin (Multi) Expected: 05/27/2024 (Approximate), Expires: 02/24/2025 [facility] Work Phone: Comment on above: Expected: 05/27/2024 (Approximate), Expires: 02/24/2025 Start: 05-23-2024 End: 05-23-2024 Patient encounter procedure 05/23/2024 8:30 AM EST Office Visit [facility] Internal Medicine [address] [place] [phone] Neymar Xavier MD [address] [place], [place] [id number] [facility] Start: 04-12-2024 Hemoglobin A1c measurement Diabetes: Hemoglobin A1C [facility] Start: 03-17-2024 Pneumococcal Vaccine : 65+ Years (2 - PCV) Pneumococcal Vaccine: 65+ Years (2 - PCV) [facility] Start: 03-09-2024 End: 03-09-2024 Anticoagulant drug monitoring 03/09/2024 10:00 AM EDT Anticoagulation - Warfarin Visit [address] [address] [facility] Start: 02-28-2024 Influenza vaccination Influenza Vacc ine (#1) [facility] Start: 02-03-2024 End: 02-03-2024 Anticoagulant drug monitoring 02/03/2024 9:45 AM EDT Anticoagulation - Warfarin Visit [address] [address] [facility] Start: 01-18-2024 End: 01-17-2025 Comprehensive metabolic 2000 [...] essential hypertension Expected: 01/18/2024 (Approximate), Expires: 01/17/2025 [facility] Service Area Work Phone: Comment on above: Expected: 01/18/2024 (Approximate), Expires: 01/17/2025 Start: 01-18-2024 End: 01-17-2025 Hemoglobin A1c/Hemoglobin.total in Blood Hemoglobin A1C Lab Routine Type 2 diabetes mellitus with hyperglycemia, without long-term current use of insulin (Multi) Expected: 01/18/2024 (Approximate), Expires: 01/17/2025 [facility] Work Phone: Comment on above: Expected: 01/18/2024 (Approximate), Expires: 01/17/2025 Start: 01-07-2024 Lipid panel Lipid Panel [facility] Start: 12-10-2023 Hemoglobin A1c measurement Diabetes: Hemoglobin A1C [facility] Start: 09-16-2023 End: 09-15-2024 Comprehensive metabolic [...] Hypercholesterolemia Hypertriglyceridemia Expected: 09/16/2023 (Approximate), Expires: 09/15/2024 [facility] Service Area Work Phone: Comment on above: Expected: 09/16/2023 (Approximate), Expires: 09/15/2024 Start: 09-16-2023 End: 09-15-2024 Hemoglobin A1c/Hemoglobin.total in Blood Hemoglobin A1C Lab Routine Type 2 diabetes mellitus without complication, without long-term current use of insulin (CMS/HCC) Expected: 09/16/2023 (Approximate), Expires: 09/15/2024 [facility] Work Phone: Comment on above: Expected: 09/16/2023 (Approximate), Expires: 09/15/2024 Start: 09-16-2023 End: 09-15-2024 Lipid 1996 panel - Serum or Plasma Lipid Panel Lab Routine Hypercholesterolemia Hypertriglyceridemia Expected: 09/16/2023 (Approximate), Expires: 09/15/2024 [facility] Work Phone: Comment on above: Expected: 09/16/2023 (Approximate), Expires: 09/15/2024 Start: 09-16-2023 End: 09-15-2024 Prostate specific Ag [Mass/volume] in Serum or Plasma Prostate Specific Antigen, Screen Lab Routine Special screening for malignant neoplasm of prostate Expected: 09/16/2023 (Approximate), Expires: 09/15/2024 [facility] Work Phone: Comment on above: Expected: 09/16/2023 (Approximate), Expires: 09/15/2024 Start: 09-16-2023 End: 09-16-2023 Anticoagulant drug monitoring 09/16/2023 10:30 AM EDT Anticoagulation - Warfarin Visit [address] [address] [facility] Start: 09-16-2023 End: 09-16-2023 Patient encounter procedure 09/16/2023 9:30 AM EDT Office Visit [facility] [address] [place] [address] Neymar Xavier MD [address] [place] [address] [facility] Start: 09-12-2023 Medicare Annual Wellness Visit Medicare Annual Wellness Visit (AWV) [facility] Start: 07-30-2023 Hemoglobin A1c measurement Diabetes: Hemoglobin A1C [facility] Start: 05-27-2023 End: 05-27-2023 Anticoagulant drug monitoring 05/27/2023 9:00 AM EST Anticoagulation - Warfarin Visit [address] [address] [facility] Start: 05-18-2023 End: 05-18-2024 CBC W Auto Differential panel - Blood CBC and Auto Differential Lab Routine Benign essential hypertension Chronic atrial fibrillation, unspecified (CMS/HCC) Type 2 diabetes mellitus with hyperglycemia, without long-term current use of insulin (CMS/HCC) Hypercholesterolemia Anemia, unspecified type Muscle cramp Expected: 05/18/2023 (Approximate), Expires: 05/18/2024 [facility] Service Area Work Phone: Comment on above: Expected: 05/18/2023 (Approximate), Expires: 05/18/2024 Start: 05-18-2023 End: 05-18-2024 Cobalamin (Vitamin B12) [Mass/volume] in Serum or Plasma Vitamin B12 Lab Routine Anemia, unspecified type Expected: 05/18/2023 (Approximate), Expires: 05/18/2024 [facility] Work Phone: Comment on above: Expected: 05/18/2023 (Approximate), Expires: 05/18/2024 Start: 05-18-2023 End: 05-18-2024 Comprehensive metabolic 2000 panel - Serum or Plasma Comprehensive Metabolic Panel Lab Routine Anemia, unspecified type Expected: 05/18/2023 (Approximate), Expires: 05/18/2024 [facility] Work Phone: Comment on above: Expected: 05/18/2023 (Approximate), Expires: 05/18/2024 Start: 05-18-2023 End: 05-18-2024 Ferritin [Mass/volume] in Serum or Plasma Ferritin Lab Routine Anemia, unspecified type Expected: 05/18/2023 (Approximate), Expires: 05/18/2024 [facility] Work Phone: Comment on above: Expected: 05/18/2023 (Approximate), Expires: 05/18/2024 Start: 05-18-2023 End: 05-18-2024 Folate [Mass/volume] in Serum or Plasma Folate Lab Routine Anemia, unspecified type Expected: 05/18/2023 (Approximate), Expires: 05/18/2024 [facility] Work Phone: Comment on above: Expected: 05/18/2023 (Approximate), Expires: 05/18/2024 Start: 05-18-2023 End: 05-18-2024 Hemoglobin A1c/Hemoglobin.total in Blood Hemoglobin A1C Lab Routine Type 2 diabetes mellitus with hyperglycemia, without long-term current use of insulin ([facility]) Expected: 05/18/2023 (Approximate), Expires: 05/18/2024 [facility] Work Phone: Comment on above: Expected: 05/18/2023 (Approximate), Expires: 05/18/2024 Start: 05-18-2023 End: 05-18-2024 Iron and Iron binding capacity panel - Serum or Plasma Iron and TIBC Lab Routine Anemia, unspecified type Expected: 05/18/2023 (Approximate), Expires: 05/18/2024 [facility] Work Phone: Comment on above: Expected: 05/18/2023 (Approximate), Expires: 05/18/2024 Start: 05-18-2023 End: 05-18-2024 Methylmalonate [Moles/volume] in Serum or Plasma Methylmalonic Acid Lab Routine Anemia, unspecified type Expected: 05/18/2023 (Approximate), Expires: 05/18/2024 [facility] Work Phone: Comment on above: Expected: 05/18/2023 (Approximate), Expires: 05/18/2024 Start: 05-13-2023 End: 05-13-2023 Patient encounter procedure 05/13/2023 10:45 AM EST Office Visit [facility] [address] [place] [phone] Neymar Xavier MD [address] [place] [address] [facility] Start: 04-28-2023 End: 04-28-2023 Anticoagulant drug monitoring 04/28/2023 8:30 AM EDT Anticoagulation - Warfarin Visit [place] [id number] [address] [facility] Start: 04-08-2023 Hemoglobin A1c measurement Diabetes: Hemoglobin A1C [facility] Start: 04-07-2023 End: 04-07-2024 CBC W Auto Differential panel - Blood CBC and Auto Differential Lab Routine Cellulitis, unspecified cellulitis site Tenosynovitis of hand Localized swelling on left hand Expected: 04/07/2023 (Approximate), Expires: 04/07/2024 [facility] Work Phone: Comment on above: Expected: 04/07/2023 (Approximate), Expires: 04/07/2024 Start: 04-07-2023 End: 04-07-2024 Erythrocyte sedimentation rate Sedimentation Rate Lab Routine Cellulitis, unspecified cellulitis site Tenosynovitis of hand Localized swelling on left hand Expected: 04/07/2023 (Approximate), Expires: 04/07/2024 [facility] Work Phone: Comment on above: Expected: 04/07/2023 (Approximate), Expires: 04/07/2024 Start: 04-07-2023 End: 04-07-2024 Urate [Mass/volume] in Serum or Plasma Uric Acid Lab Routine Cellulitis, unspecified cellulitis site Tenosynovitis of hand Localized swelling on left hand Expected: 04/07/2023 (Approximate), Expires: 04/07/2024 [facility] Work Phone: Comment on above: Expected: 04/07/2023 (Approximate), Expires: 04/07/2024 Start: 04-07-2023 End: 04-07-2025 US.doppler Upper extremity vein - left Vascular US upper extremity venous duplex left Vascular Ultrasound Routine Localized swelling on left hand Expected: 04/07/2023 (Approximate), Expires: 04/07/2025 [facility] Service Area Work Phone: Comment on above: Expected: 04/07/2023 (Approximate), Expires: 04/07/2025 Start: 02-27-2023 Influenza vaccination Influenza Vacc ine (#1) [facility] Start: 01-19-2023 DTaP/Tdap/Td Vaccine s (2 - Td or Tdap) DTaP/Tdap/Td Vaccines (2 - Td or Tdap) [facility] Start: 01-12-2023 End: 01-13-2024 Comprehensive metabolic 2000 panel - Serum or Plasma Comprehensive Metabolic Panel Lab Routine Type 2 diabetes mellitus without complication, without long-term current use of insulin (CMS/HCC) Psoriatic arthritis (CMS/HCC) Chronic atrial fibrillation, unspecified (CMS/HCC) Benign essential hypertension Hypercholesterolemia Hypertriglyceridemia Healthcare maintenance Expected: 01/12/2023 (Approximate), Expires: 01/13/2024 [facility] Service Area Work Phone: Comment on above: Expected: 01/12/2023 (Approximate), Expires: 01/13/2024 Start: 01-12-2023 End: 01-13-2024 Hemoglobin A1c/Hemoglobin.total in Blood Hemoglobin A1C Lab Routine Type 2 diabetes mellitus without complication, without long-term current use of insulin (CMS/HCC) Expected: 01/12/2023 (Approximate), Expires: 01/13/2024 [facility] Work Phone: Comment on above: Expected: 01/12/2023 (Approximate), Expires: 01/13/2024 Start: 01-12-2023 End: 01-12-2023 Patient encounter procedure 01/12/2023 10:45 AM EDT Office Visit [facility] [address] [place] [address] Neymar Xavier MD [address] [place] [address] [facility] Start: 01-01-2023 Lipid panel Lipid Panel [facility] Start: 12-03-2022 Hemoglobin A1c measurement Diabetes: Hemoglobin A1C [facility] Start: 09-10-2022 End: 09-11-2023 Comprehensive metabolic 2000 panel - Serum or Plasma Comprehensive Metabolic Panel Lab Routine Type 2 diabetes mellitus without complication, without long-term current use of insulin (CMS/HCC) Expected: 09/10/2022 (Approximate), Expires: 09/11/2023 [facility] Work Phone: Comment on above: Expected: 09/10/2022 (Approximate), Expires: 09/11/2023 Start: 09-10-2022 End: 09-11-2023 Hemoglobin A1c/Hemoglobin.total in Blood Hemoglobin A1C Lab Routine Type 2 diabetes mellitus without complication, without long-term current use of insulin (CMS/[facility]) Expected: 09/10/2022 (Approximate), Expires: 09/11/2023 [facility] Service Area Work Phone: Comment on above: Expected: 09/10/2022 (Approximate), Expires: 09/11/2023 Start: 09-10-2022 End: 09-11-2023 Hepatitis C virus Ab [Presence] in Serum Hepatitis C antibody Lab Routine Healthcare maintenance Expected: 09/10/2022 (Approximate), Expires: 09/11/2023 [facility] Work Phone: Comment on above: Expected: 09/10/2022 (Approximate), Expires: 09/11/2023 Start: 09-10-2022 End: 09-11-2023 Lipid 1996 panel - Serum or Plasma Lipid Panel Lab Routine Hypercholesterolemia Expected: 09/10/2022 (Approximate), Expires: 09/11/2023 [facility] Work Phone: Comment on above: Expected: 09/10/2022 (Approximate), Expires: 09/11/2023 Start: 09-10-2022 End: 09-11-2023 Prostate specific Ag [Mass/volume] in Serum or Plasma Prostate Specific Antigen, Screen Lab Routine Psoriatic arthritis (CMS/HCC) Expected: 09/10/2022 (Approximate), Expires: 09/11/2023 [facility] Work Phone: Comment on above: Expected: 09/10/2022 (Approximate), Expires: 09/11/2023 Start: 09-10-2022 FUV, Provider: Neymar Xavier, Status: Pen, Time: 11:15 AM FUV, Provider: Neymar Xavier, Status: Pen, Time: 11:15 AM [facility] Work Phone: Start: 09-10-2022 Patient encounter procedure MCRANNUAL, Provider: Neymar Xavier, Status: Pen, Time: 11:15 AM [facility] Work Phone: Start: 05-07-2022 FUV, Provider: Neymar Xavier, Status: Pen, Time: 12:30 PM FUV, Provider: Neymar Xavier, Status: Pen, Time: 12:30 PM [facility] Work Phone: Start: 01-08-2022 FUV, Provider: Neymar Xavier, Status: Pen, Time: 1:45 PM FUV, Provider: Neymar Xavier, Status: Pen, Time: 1:45 PM [facility] Work Phone: Start: 10-10-2021 COLON, Provider: Neymar Xavier, Status: Pen, Time: 11:30 AM COLON, Provider: Neymar Xavier, Status: Pen, Time: 11:30 AM [facility] Work Phone: Start: 09-10-2021 FUV, Provider: Neymar Xavier, Status: Pen, Time: 2:45 PM FUV, Provider: Neymar Xavier, Status: Pen, Time: 2:45 PM [facility] Work Phone: Start: 09-10-2021 Patient encounter procedure MCRANNUAL, Provider: Neymar Xavier, Status: Pen, Time: 2:45 PM [facility] Work Phone: Start: 09-05-2021 COLON, Provider: Nyemar Xavier, Status: Pen, Time: 8:30 AM COLON, Provider: Neymar Xavier, Status: Pen, Time: 8:30 AM [facility] Work Phone: Start: 03-03-2022 Urine screening for protein Diabetes: Urine Protein Screening [facility] Start: 05-14-2021 FUV, Provider: Neymar Xavier, Status: Pen, Time: 12:30 PM FUV, Provider: Neymar Xavier, Status: Pen, Time: 12:30 PM [facility] Work Phone: Start: 2021 RSV High Risk: (Elderly (60+) or Population) (1 - 1-dose 75+ series) RSV High Risk: (Elderly (60+) or Population) (1 - 1-dose 75+ series) [facility] Start: 02-27-2021 Pneumococcal vaccination Pneumococcal Vaccine (2 of 2 - PCV) [facility] Start: 02-27-2021 Pneumococcal Vaccine : 65+ Years (2 - PCV) Pneumococcal Vaccine: 65+ Years (2 - PCV) [facility] Start: 02-27-2021 Pneumococcal Vaccine : 65+ Years (2 of 2 - PCV) Pneumococcal Vaccine: 65+ Years (2 of 2 - PCV) [facility] Start: 01-08-2021 FUV, Provider: Neymar Xavier, Status: Pen, Time: 12:30 PM FUV, Provider: Neymar Xavier, Status: Pen, Time: 12:30 PM [facility] Work Phone: Start: 05-03-2020 Blood count complete auto&auto difrntl wbc Complete Blood Count + Differential [facility] Work Phone: Start: 05-03-2020 Comprehensive metabolic 2000 panel Comprehensive Metabolic Panel [facility] Work Phone: Start: 05-03-2020 HbA1c (Bld) [Mass fraction] Hemoglobin A1C [facility] Work Phone: Start: 05-03-2020 Sedimentation rate r bc automated Sedimentation Rate, Erythrocyte [facility] Work Phone: Start: 02-01-2020 Comprehensive metabolic 2000 panel Comprehensive Metabolic Panel [facility] Work Phone: Start: 02-01-2020 HbA1c (Bld) [Mass fraction] Hemoglobin A1C [facility] Work Phone: Start: 02-16-2013 DTaP/Tdap/Td Vaccine s (2 - Td or Tdap) DTaP/Tdap/Td Vaccines (2 - Td or Tdap) [facility] Start: 2006 RSV patient s and/or patients aged 60+ years (1 - 1-dose 60+ series) RSV patients and/or patients aged 60+ years (1 - 1-dose 60+ series) [facility] Start: 1964 Hepatitis C screening Hepatitis C [facility] Start: 1956 Diabetic foot examination Diabetes: Foot Exam [facility] End: 10-13-2024 CT Chest W contrast IV [facility] Service Area Work Phone: Comment on above: Once for 1 Occurrenc es starting 10/13/2024 until 10/13/2024 Folate [Moles/volume ] in Serum or Plasma [facility] Lactic acid measurement [facility] Magnesium measurement [facility] Patient referral [facility] Work Phone: Troponin T.cardiac [Mass/volume] in Serum or Plasma by High sensitivity method [facility] Urine culture [facility] End: 02-25-2024 XR Chest 2 Views [facility] Service Area Work Phone: Comment on above: Once for 1 Occurrenc es starting 02/25/2024 until 02/25/2024 [facility] Work Phone: NEGATED: Highlighted row has been ruled out! Planned Goals not documented [facility] Work Phone: Immunizations Immunization Date Immunization Notes Care Provider Fa nikki 03-16-2025 influenza, high dose seasonal, preservative-free Neymar Xavier MD Work Phone: [facility] 03-15-2024 influenza, seasonal, injectable, preservative free Neymar Xavier MD Work Phone: [facility] Work Phone: 03-15-2024 influenza virus vacc ine, unspecified formulation Neymar Xavier MD Work Phone: [facility] Work Phone: 03-17-2023 pneumoc 20-viviana conj- dip cr,PF, (Prevnar) 0.5 mL vaccine Neymar Xavier MD Work Phone: [facility] Work Phone: 09-10-2022 diphtheria, tetanus toxoids and acellular pertussis vaccine, unspecified formulation Neymar Xavier MD Work Phone: [facility] Work Phone: 09-10-2022 pneumoc 20-viviana conj- dip cr,PF, (Prevnar 20, PF,) 0.5 mL vaccine Neymar Xavier MD Work Phone: [facility] Work Phone: 03-11-2022 influenza, high dose seasonal, preservative-free Neymar Xavier Work Phone: [facility] Work Phone: 03-11-2022 influenza, seasonal, injectable Neymar Xavier MD Work Phone: [facility] Work Phone: 03-11-2022 influenza virus vacc ine, unspecified formulation Neymar Xavier MD Work Phone: [facility] Work Phone: 03-12-2021 influenza, high dose seasonal, preservative-free Neymar Xavier Work Phone: [facility] Work Phone: 09-03-2020 Salome COVID-19 Vac cine 0.5 ML Intramuscular Suspension Neymar Xavier Work Phone: [facility] 02-28-2020 influenza, seasonal, injectable Neymar M Tavallaee Work Phone: [facility] Work Phone: Comment on above: Series: 02-28-2020 pneumococcal polysaccharide vaccine, 23 valent Neymar Princess Tavallaee Work Phone: [facility] Work Phone: Comment on above: Series: 03-02-2019 influenza, injectabl e, quadrivalent, preservative free Neymar M Tavallaee Work Phone: [facility] Work Phone: 03-24-2018 influenza, high dose seasonal, preservative-free Neymar M Tavallaee Work Phone: [facility] Work Phone: 03-31-2017 influenza, injectabl e, quadrivalent, preservative free Neymar Princess Tavallaee Work Phone: [facility] Work Phone: 01-19-2013 tetanus toxoid, redu varghese diphtheria toxoid, and acellular pertussis vaccine, adsorbed Neymar Princess Tavallaee Work Phone: [facility] 06-18-2009 novel influenza-H1N1 -09, preservative-free, injectable Neymar Princess Lopezallaee Work Phone: [facility] Work Phone: 04-24-2009 influenza virus vacc ine, whole virus Neymar Princess Lopezallaee Work Phone: [facility] Work Phone: 01-20-1989 hepatitis B vaccine, adult dosage Neymar Xavier MD Work Phone: [facility] Work Phone: 01-20-1989 hepatitis B vaccine, pediatric or pediatric/adolescent dosage Neymar Xavier Work Phone: [facility] Work Phone: 06-25-1988 hepatitis B vaccine, adult dosage Neymar Xavier MD Work Phone: [facility] Work Phone: 06-25-1988 hepatitis B vaccine, pediatric or pediatric/adolescent dosage Neymar Xavier Work Phone: [facility] Work Phone: 05-28-1988 hepatitis B vaccine, adult dosage Neymar Xavier MD Work Phone: [facility] Work Phone: 05-28-1988 hepatitis B vaccine, pediatric or pediatric/adolescent dosage Neymar Xavier Work Phone: [facility] Work Phone: Payers Date Payer Category Payer Self-pay 2021 Medicare ANTHEM MEDICARE ANTHEM MEDICARE ADVANTAGE [id number] 2021-Present [address] [place] [address] [id number] 2021 Medicare (Managed Care) [facility] ADVANTAGE [id number] 2015 Unknown [id number] 1945 Unknown [id number] 2.16.840.1.119620.3.579. 2.356 1946 Unknown [id number] 2.16.840.1.053733.3.579. 2.356 1946 Unknown [id number] 2.16.840.1.099994.3.579. 2.356 1946 Unknown [id number] 2.16.840.1.092145.3.579. 2.1068 1946 Unknown [id number] 2.16.840.1.718044.3.579. 2.1068 1946 Unknown [id number] 2.16.840.1.013318.3.579. 2.1068 1946 Unknown [id number] 2.16.840.1.807518.3.579. 2.1068 1946 Unknown [id number] 2.16.840.1.584921.3.579. 2.1068 1946 Unknown [id number] 2.16.840.1.592151.3.579. 2.1068 1946 Unknown [id number] 2.16.840.1.386747.3.579. 2.1068 1946 Unknown [id number] 2.16.840.1.251397.3.579. 2.1068 1946 Unknown [id number] 2.16.840.1.337154.3.579. 2.1068 1946 Unknown [id number] 2.16.840.1.478065.3.579. 2.1068 1946 Unknown [id number] 2.16.840.1.573059.3.579. 2.1068 1946 Unknown [id number] 2.16.840.1.966316.3.579. 2.1068 1946 Unknown [id number] 2.16.840.1.319121.3.579. 2.1068 1946 Unknown [id number] 2.16.840.1.979364.3.579. 2.1069 1946 Unknown [id number] 2.16.840.1.006165.3.579. 2.1244 1946 Unknown [id number] 2.16.840.1.874536.3.579. 2.1244 1946 Unknown [id number] 2.16.840.1.000719.3.579. 2.1244 1946 Unknown [id number] 2.16.840.1.875139.3.579. 2.1244 1946 Unknown [id number] 2.16.840.1.559320.3.579. 2.1243 1946 Unknown [id number] 2.16.840.1.199663.3.579. 2.1243 1946 Unknown [id number] 2.16840.1.060676.3.579. 2.1243 1946 Unknown [id number] 2.16.840.1.025842.3.579. 2.1243 1946 Unknown [id number] 2.16.840.1.670324.3.579. 2.1243 1946 Unknown [id number] 2.16.840.1.975419.3.579. 2.1243 1946 Unknown [id number] 2.16840.1.147744.3.579. 2.1243 1946 Unknown [id number] 2.16.840.1.534098.3.579. 2.1243 1946 Unknown [id number] 2.16.840.1.958728.3.579. 2.1242 1946 Unknown [id number] 2.16.840.1.841072.3.579. 2.1242 1946 Unknown [id number] 2.16.840.1.982289.3.579. 2.1242 1946 Unknown [id number] 2.16.840.1.883564.3.579. 2.1242 1946 Unknown [id number] 2.16.840.1.036374.3.579. 2.1242 1946 Unknown [id number] 2.16.840.1.261637.3.579. 2.1242 1946 Unknown [id number] 2.16.840.1.688762.3.579. 2.1242 1946 Unknown [id number] 2.16.840.1.142122.3.579. 2.1242 1946 Unknown [id number] 2.16.840.1.954131.3.579. 2.1242 1946 Unknown [id number] 2.16840.1.869954.3.579. 2.1242 1946 Unknown [id number] 2.16840.1.412583.3.579. 2.1242 1946 Unknown [id number] 2.16840.1.484216.3.579. 2.1242 1946 Unknown [id number] 2.16.840.1.919664.3.579. 2.1242 1946 Unknown [id number] 2.16840.1.112610.3.579. 2.1242 1946 Unknown [id number] 2.16.840.1.942091.3.579. 2.1242 1946 Unknown [id number] 2.16840.1.533198.3.579. 2.1242 1946 Unknown [id number] 2.16.840.1.192721.3.579. 2.1242 1946 Unknown [id number] 2.16840.1.224896.3.579. 2.1242 1946 Unknown [id number] 2.16.840.1.824351.3.579. 2.1243 1946 Unknown [id number] 2.16.840.1.951725.3.579. 2.1243 Unknown Unknown [id number] 2.16.840.1.467866.3.579. 2.462 Unknown [id number] 2.16.840.1.393070.3.579. 2.462 Unknown [id number] 2.16.840.1.771492.3.579. 2.462 Unknown [id number] 2.16.840.1.096002.3.579. 2.462 Unknown [id number] 2.16.840.1.259609.3.579. 2.462 Unknown [id number] 2.16.840.1.041367.3.579. 2.462 Unknown [id number] 2.16.840.1.790467.3.579. 2.462 Unknown [id number] 2.16.840.1.187151.3.579. 2.462 Unknown [id number] 2.16.840.1.319261.3.579. 2.462 Social History Date Type Detail Facility - - [facility] Work Phone: Start: 01-12-2023 End: 04-13-2025 Former smoker Former smoker [facility] Work Phone: Start: 01-12-2023 End: 04-19-2025 Tobacco smoking status NHIS Ex-smoker [facility] History of tobacco use Current smoker [facility] Work Phone: History of tobacco use Pipe Smoker [facility] Work Phone: History of tobacco use Passive smoker [facility] Work Phone: Start: 09-10-2022 End: 01-12-2023 Tobacco use and exposure Smokeless tobacco non-user [facility] Work Phone: Start: 01-12-2023 End: 05-02-2025 Alcohol intake Ex-drinker (finding) [facility] Work Phone: Start: 01-12-2023 End: 04-13-2025 Tobacco use panel [facility] Work Phone: Start: 1945 Sex Assigned At Not on file [facility] Work Phone: Start: 08-31-2022 End: 10-18-2024 Exposure to SARS-CoV-2 (event) Not sure [facility] Start: 05-24-2022 End: 09-20-2024 Sex Male (finding) [facility] Start: 1945 Sex Assigned At Male [facility] Start: 05-24-2022 Sex Male [facility] Medical Equipment Procedure Code Equipment Code Equipment Origin al Text Equipment Identifier Dates Revision of uncemented total hip replacement Press-fit femoral stem prosthesis [id number] FDA Start: 04-20-2025 Revision of uncemented total hip replacement ([id number]) Acetabular shell ()[id number] FDA Start: 04-20-2025 Revision of uncemented total hip replacement ([id number]) Metallic femoral head prosthesis ()[id number] FDA Start: 04-20-2025 Revision of uncemented total hip replacement ([id number]) Non-constrained polyethylene acetabular liner ()[id number] FDA Start: 04-20-2025 Revision of uncemented total hip replacement Press-fit femoral stem prosthesis ()[id number] FDA Start: 04-20-2025 Accu-Chek SmartV iew In Vitro Strip TEST 4 TIMES DAILY. 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 [id number] Start : 09-10-2022 End: 09-16-2023 TEST 3 TIMES DAILY. [id number] Start : 09-16-2023 End: 10-18-2024 4 times a day. T EST 4 TIMES DAILY. [id number] Start: 04-06-2019 End: 09-10-2022 TEST 4 times daily [id number] Start: 10-18-2024 1 strip 2 times a day. [id number] Start: 12-05-2024 Goals Date Patient Goal Desired Activity /State Functional Status Date Assessment Result Facility 05-02-2025 Functional status 123/73 025 1:09 PM Lyn Tran MA 123/73 [facility] 05-02-2025 Vital signs 70 05/02/2025 1: 09 PM Lyn Tran MA [facility] Work Phone: 04-21-2025 Functional status With Assist of 2 [facility] Work Phone: 04-13-2025 Functional status 123/80 [facility] Work Phone: 04-13-2025 Vital signs 89 04/13/2025 3: 19 PM EDT Minda Carmichael MA [facility] Work Phone: 04-13-2025 Patient Health Questionnaire 2 item (PHQ-2) [Reported] [facility] Work Phone: 04-13-2025 [facility] Work Phone: 03-16-2025 Patient Health Questionnaire 2 item (PHQ-2) [Reported] [facility] Work Phone: 02-13-2025 Patient Health Questionnaire 2 item (PHQ-2) [Reported] [facility] Work Phone: 02-06-2025 Patient Health Questionnaire 2 item (PHQ-2) [Reported] [facility] Work Phone: 10-18-2024 Patient Health Questionnaire 2 item (PHQ-2) [Reported] [facility] Work Phone: 09-22-2024 Functional status Chair [facility] Work Phone: NEGATED: Highlighted row Functional performance Functional status health issues are not documented Disease [facility] Work Phone: Mental Status Date Assessment Result Facility 04-21-2025 Cognitive function Level Of Cons ciousness Awake [facility] Work Phone: 04-21-2025 Cognitive function Voice/Name [facility] Work Phone: 09-22-2024 Cognitive function Voice/Name [facility] Work Phone: NEGATED: Highlighted row Cognitive function [Interpretation] Cognitive status health issues are not documented Disease [facility] Work Phone: Clinical Notes 09-10-2022 to 05-02-2025 Neymar Xavier MD - 05/02/2025 1:15 PM EST Note Date & Type Note Facility 05-02-2025 History of Present illness Narrative Subjective Patient ID: Hattie Valderrama is a 80 y.o. male who presents for Hospital Follow-up (04/19/25-R hip). Here for fu after dc from hospital for right hip fx after twisting( no fall) had ORIF ()feels better now Getting PT at home now Review of Systems Constitutional: Negative. Negative for [...] back: Normal range of motion. No rigidity. Right lower leg: Edema (mild) present. Left lower leg: Edema (mild) present. Lymphadenopathy: Cervical: No cervical adenopathy. Skin: General: Skin is warm. Findings: No rash. Neurological: General: No focal deficit present. Mental Status: He is alert and oriented to person, place, and time. Psychiatric: Mood and Affect: Mood normal. Behavior: Behavior normal. BP 123/73 Pulse 70 Ht 1.829 m (6') Wt 103 kg (228 lb) SpO2 97% BMI 30.92 kg/m PSA, TOTAL Date/Time Value Ref Range [...] Items Addressed This Visit Benign essential hypertension Chronic atrial fibrillation, unspecified (Multi) Other Visit Diagnoses Closed fracture of right hip with routine healing, subsequent encounter - Primary Continue PT Clinically dong fine Use a walker Fu with ortho Coumadin clinic for adjustment Fu as before documented in this encounter [facility] Work Phone: 04-21-2025 Note [facility] Medical Records Department [address] [place] [id number] Discharge Summary 04/21/25 1157 MR#: [id number] Acct: [id number] Name: HATTIE VALDERRAMA Rep #: [id number] : 1945 80 From: Marcelino Gracia DO PCP: Dr. Neymar Xavier MD Status:ADM IN Location: [place] [id number] Providers Date of Admission: 04/19/25 Primary Care Physician: Dr. 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 Pt underwent revision both components right total hip replacement (2) Coagulopathy: Status: Acute Code(s): D68.9 - Coagulation defect, unspecified Plan: Iatrogenic (appropriately so). Resolved after vitamin K. Now, post surgery, pt to resume his warfarin. (3) Lytic bone lesions on xray: Status: Acute Code(s): M89.8X9 - Other specified disorders of bone, unspecified site Plan: Noted on chest CT from September 20 of this year in his right scapula. Patient had a CAT scan of his chest abdomen pelvis the next day on the that showed no report of that lytic lesion and no metastatic focus or anything in that nature. It was instructed the patient follow-up with further imaging in 6 months time but patient never did so. Will order CT of the chest without contrast. Discussed with machine packaging technician that CAT scan without contrast center looking at the lytic lesion would be fine. Plan Diabetes mellitus type 2: Continue with glimepiride and metformin postsurgery. Atrial fibrillation: Resume warfarin and continue metoprolol VTE prophylaxis restart warfarin. Since INR is subtherapuetic given the vitamin K, we will utilize twice daily aspirin until INR is therapeutic CODE STATUS: Addressed with the patient. Patient wishes to be full code. Medications at Discharge Home Medications atorvastatin 40 [...] 2 mg tablet 4 mg PO SUTUTHSA blood clots 05/20/22 warfarin 2 mg tablet 6 mg PO QMWF blood clots 05/20/22 amlodipine 5 mg tablet 5 mg PO DAILY high blood pressure 04/19/25 magnesium 500 mg tablet 15 mg PO DAILY for low mag 04/19/25 acetaminophen 325 mg tablet 1,000 mg (3.0769 x 325 mg) PO Q8H PRN PRN Pain 1-10 Or Fever >100.7 #0 tabs 04/21/25 aspirin 81 mg tablet,delayed release (Adult Low Dose Aspirin) 81 mg PO BIDCM low dose #30 tabs 04/21/25 doxycycline monohydrate 100 mg capsule 100 mg PO BID #14 caps 04/21/25 oxycodone 5 mg tablet 5 mg PO Q4H PRN PRN Pain Score 4-10 3 days #12 tabs 04/21/25 Hospital Course Operations - (Revision both components right total hip replacement) Summary of Care Provided Hospital Course: This is a patient that was standing and felt his right leg gave out. He was able to catch himself and did not fall. Patient was found to have a broken proximal right hip prosthesis. Patient underwent a revision on the after reversal of his INR. Patient has done very well with therapy. His situation is not typical of revision of hip replacements as it was not a fall that broke but appearing to be the device itself that had failed. Patient is doing very well with therapy. Patient was seen in August and operative his workup noted a lytic lesion in his right scapula. He did not ever seek follow-up but we did do a follow-up CAT scan this admission that showed a stable lucent lesion within the right scapula and in the inferior glenoid region. Unchanged. Do recommend 6-month follow-up. This very well may be benign lesion. Since patient's INR was reversed it is down to 1.1. Patient takes warfarin for atrial fibrillation. He will resume his warfarin and then be on aspirin 81 mg twice daily until his INR is therapeutic. Discussed with orthopedic service, patient is to be on doxycycline 100 twice daily for 2 weeks given this revision. Weight / BMI Weight Weight: 100.7 kg Body Mass Index (BMI) 30.1 ABG / Lab / Microbiology Data 04/21/25 04:42 04/21/25 04:42 Laboratory: Laboratory Results - last 24 hr 04/20/25 12:05: POC Glucose 143 H 04/20/25 21:53: POC Glucos (more content not included)... [facility] 04-21-2025 Radiology Diagnostic study note [facility] Imaging Services [address] [place] [address] Chest without Contrast MR#: [id number] Acct: [id number] Name: HATTIE VALDERRAMA Rep #: [id number] : 1945 M 80 From: Toney Yoo MD PCP: Dr. Neymar Xavier MD Status: ADM IN Study:Chest without Contrast Date of Exam: 04/21/25 Exam# [id number] Ordering Dr: Marcelino Gracia DO PROCEDURE: CHEST WITHOUT CONTRAST 04/21/2025 REASON FOR EXAM: RIGHT SCAPULA LYTIC LESION FOLLOW UP TECHNIQUE: Chest CT without contrast. Coronal and Sagittal reconstruction series were provided. One or more dose reduction techniques were used (e.g., Automated exposure control, adjustment of the mA and/or kV according to patient size, use of iterative reconstruction technique RADIATION DOSE SUMMARY: CTDlvol: 17.92 mGy DLP: 725.62 mGycm COMPARISON: 09/01/2024 FINDINGS: The bone windows show no interval change in the appearance of a previously notedwell-defined lucent lesion in the glenoid region of the scapula. It is unchanged in size compared to the previous study, there is no irregularity of the inner border of the lesion nor is there evidence of expansion through the cortical surface since theprevious study. Lung windows show chronic interstitial changes in both lung guy with interstitial edema, small pleural effusions and minimal bibasilar atelectasis. No organized infiltrate or suspicious noncalcified mass or nodule. The soft tissue windows show a normal-appearing thyroid gland. No suspicious axillary, mediastinal or perihilar adenopathy. There are calcified coronary vessels. Limited cuts through the upper abdomen do not show a suspicious abnormality. Bony structures show degenerative change, no other suspicious lucent lesion is noted. There is a stable sclerotic focus within theanterior right scapula likely a bone island CT/Chest without Contrast IMPRESSION: Coronary artery calcification (CAC) is is present Stable lucent lesion within the right scapula in the inferior glenoid region. It is unchanged in size or appearance compared to the previous study. There is no expansion through the cortical surface. The inner border of the lesion is also free of erosive or irregular changes. I suspect this is a benign lesion but another six-month follow-up could be performed for stability Mild interstitial edema with small pleural effusions and bibasilar atelectasis. Findings are consistent with pulmonary vascular congestion. Follow-up recommended to ensure complete resolution No suspicious adenopathy Degenerative bony changes Reading Location: [facility] CC: Dr. Marcelino Gracia DO; Dr. Neymar Xavier MD ~ French Binding Folder: Signed [facility] 04-20-2025 Radiology Diagnostic study note [facility] Imaging Services [address] [place], [place] [address] Hip Min 2 Views (Portable) MR#: [id number] Acct: [id number] Name: HATTIE VALDERRAMA Rep #: [id number] : 1945 M 80 From: Librado Brush MD PCP: Dr. Neymar Xavier MD Status: ADM IN Study:Hip Min 2 Views (Portable) Date of Exam : 04/20/25 Exam# [id number] Ordering Dr: Vianca Bradley MD PROCEDURE: HIP MIN 2 VIEWS (PORTABLE) 04/20/2025 REASON FOR EXAM: POST OP TECHNIQUE: Procedure Code: RADH_P Modality: DX Procedure: HIP MIN 2 VIEWS (PORTABLE) Laterality: COMPARISON: 04/19/2025. FINDINGS: Status post right hip arthroplasty. Surrounding soft tissue swelling and air which is expected postsurgically. Ivkjfeah-uq-sysosu left hip degenerative changes. RAD/Hip Min 2 Views (Portable) IMPRESSION: Intact right hip arthroplasty. Left hip osteoarthrosis. Reading Location: [address] CC: Dr. Neymar Xavier MD; Dr. Hugo Bradley MD ~ French Binding Folder: Signed [facility] 04-20-2025 Procedure note [facility] 04-19-2025 Evaluation note Diagnosis Onset Date Resolution Coagulopathy resolved March 11:26am Prosthetic hip implant failure resolved April 19 11:26am Status post revision of total replacement of right hip resolved April 19 11:26am Anemia due to chronic illness inactive April 19 11:26am Anticoagulant long-term use inactive April 19 11:26am Atrial fibrillation inactive Octob er 2024 11:26am History of hypertension inactive O ctober 2024 11:26am Hyperglycemia due to type 2 diabetes mellitus inactive April 19, 2025 11:26am Lytic bone lesions on xray inactive April 19 11:26am [facility] Work Phone: 1(641) 646-434310-22-2025 Discharge summary [facility] Medical Records Department [address] [place] [address] Emergency Department Summary 04/19/25 MR#: [id number] Acct: [id number] Name: HATTIE VALDERRAMA Rep #:[id number] : 1945 80 From: Jaydon Barney MD PCP: Dr. Neymar Xavier MD Status: REG ER Location: ED ADDENDUM by Dr. Jaydon Barney MD on 04/19/25 at 1130 Single view chest x-ray reveals cardiomegaly. Cardiac silhouette seen. There is no evidence of failure, infiltrate or effusion. Osseous structures reveal noacute abnormality. This independently reviewed by [place] 04/19/25 1130 Cosigner Signature (if applicable): cc: Dr. Neymar Xavier MD ~* Signed HPI History of Present Illness Chief Complaint: Lower Extremity Injury Detail of Chief Complaint: Complains of right hip pain which he points to the greater trochanteric reg Informant: patient Onset/Context/Timing Onset: Hours Context: Sudden Onset Timing: Continuous Quality: Pain Location: Right hip region Current Severity: Mild Maximum Severity: Moderate Worsened by: Movement Relieved by: Nothing Associated Symptoms Associated Symptoms: Unable to bear weight Narrative Narrative: Patient is a 80-year-old male. He has history of right total hip arthroplasty. He states he was standing pivoted and felt a pop and experienced severe pain which he locates to the greater trochanteric region. He arrived by ambulance. He was unable to bear weight afterwards. He denies paresthesia, anesthesia or motor weakness. He has history of type 2 diabetes, hypercholesterolemia, hypertension and is on anticoagulant. Prior similar symptoms: No Recent Illness/Hospitalization: No PFSH PFS Medical History Overweight (BMI 25.0-29.9) Kidney stones Diabetes Atrial fibrillation Hypertension Home [...] mg PO QMWF 05/20/22 Unknow n History guaifenesin 1,200 mg tablet, 1,200 mg PO BID #10 tabs 09/22/24 Unknown Rx extended release 12 hr (Mucus Relief ER) levofloxacin 750 mg tablet 750 mg PO DAILY #4 tabs Unknown Rx oseltamivir 30 mg capsule 30 mg PO BID #6 caps 5 Unknown Rx prednisone 20 mg tablet 40 mg (2 x 20 mg) PO DAILY # 10 tabs 09/22/24 Unknown Rx Allergy/AdvReac Type Severity Reaction Status Date / Time No Known Allergies Allergy Verified 09/20/24 17:36 Surgical History History of hip replacement History of knee replacement Social History Smoking Status: Former smoker ROS ROS ED Constitutional Constitutional ED: Denies chills, fever(s) or subjective Cardiovascular Cardiovascular: Denies chest pain or palpitations Respiratory/Chest Respiratory/Chest: Denies cough or dyspnea Gastrointestinal Gastrointestinal: Denies nausea or vomiting Musculoskeletal Musculoskeletal: Reports other Details: Right hip pain EXAM Physical Exam Const Vital Signs: 04/19/25 08:20 Temperature 97.7 F L Temperature Source Oral Pulse Rate 94 Respiratory Rate 18 Blood Pressure 125/80 H Blood Pressure Mean 95 Pulse Ox 98 Positive well nourished and well developed Constitutional Narrative: Patient appears slightly uncomfortable. The right lower extremity is shortened compared to the left. General Appearance ED: well developed; Negative for pallor HEENT Reports moist mucous membranes HEENT Narrative: HEENT is grossly unremarkable with no evidence of trauma Eyes PERRL and EOMs intact bilaterally General Eye ED: Negative for pale conjunctiva or scleral icterus Resp normal respiratory effort and clear to auscultation bilaterally Cardio regular rate, regular rhythm, S1 normal heart sound, S2 normal heart sound and no murmurs GI normal to inspection, nondistended, normoactive bowel sounds, non-tender and non-distended Extremity Extremity Narrative: There is shortening of the right leg. He is unable to lift his leg up off the bed. He has no pain to palpation in the inguinal area. There is pain ovation over the greater trochanteric region. There is no evidence of bruising or trauma to the hip area. There is no pain ovation over the pubic symphysis, right ischial tuberosity or right ilium. Neuro oriented x3 and CN's II-XII intact bilaterally Sensorium / Orientation: alert Psych mental status grossly normal Skin no rashes or lesions noted, no wounds and No skin turgor normal General Skin Exam: Negative for jaundice or pallor MDM MDM MDM Narrative Medical decision making narrative: Patient last ate at 6 AM. He was made NPO. IV was established. He was treatedwith pain medicine. X-ray was obtained to determine if patient has a dislocatedprosthesis versus a periprosthetic fracture. Lab Data Labs: Laboratory Results - last 24 hr 04/19/25 09:50 WBC 7.5 RBC 3.89 L Hgb 12.1 L Hct 36.9 L MCV 94.9 H MCH 31.1 MCHC 32.8 RDW Std Deviation 47.1 H RDW Coeff of Risa 13.6 Plt Count 241 MPV 10.4 Immature Gran % (Auto) 0.500 Neut % (Auto) 73.8 H Lymph % (Auto) 15.7 L Mora % (Auto) 8.1 Eos % (Auto) 1.2 Baso % (Auto) 0.7 Absolute Neuts (auto) 5.5 Absolute Lymphs (auto) 1.18 Nucleated RBC % 0 PT 29.2 H INR 2.7 Sodium 140 Potassium 4.3 Chloride 103 Carbon Dioxide 29.6 Anion Gap 7 BUN 16 Creatinine 0.87 Estim Creat Clear Calc 86.79 Est GFR (MDRD) Non-Af 88 BUN/Creatinine Ratio 18.3 Glucose 221 H Calcium 9.2 Radiography Chest X-Ray - ED: Read by ED Physician (Three-view x-ray reveals a fracture of the femoral neck of the prosthetic component. This would explain the shorteningof his leg. No other abnormalities noted.) Diagnostic Testing: Clinical Impression(s) from Imaging Studies Hip/Pelvis X-Ray 04/19/25 08:23 IMPRESSION: Transverse cervical fracture of the prosthetic component of the right total hip with cephalic migration of the distal fracture fragment. [facility] 04/19/25 09:39 IMPRESSION: There is cardiomegaly without overt CHF. [facility] Initial EKG: Attestation: I personally reviewed and interpreted this EKG as follows: Interpretation: Atrial Fibrillation (Rate is 96. There is a right bundle branch block. QRS [id number] ms. QT duration 180 ms. [place] is normal there is no acute ischemic changes per) Management Discussion w/another healthcare provider: Hospitalist (Case was discussed with hospitalist, Dr. Marcelino Hope. He is aware that Dr. Bradley needs to do the case tomorrow. 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 Dilan Zurita who is on-call for orthopedics no doc. He informing that he does not do revisions. Will contact other group to see if anyone is available to fix this otherwise patient will require transfer.) Treatment and Re-Evaluation :: Case discussed Dr. Canada presents patient's INR is not significantly out of control will contact hospitalist for admission. 5 mg of vitamin K orally was ordered to start reversal since he will need to be operated on tomorrow by Dr. Bradley. He is on Coumadin for atrial fibrillation. Discharge Plan Dx/Rx/DC Orders Clinical Impression: Prosthetic hip implant failure, Atrial fibrillation, Anticoagulant long-term use, Anemia due to chronic illness, Hyperglycemia due to type 2 diabetes mellitus, History of hypertension Disposition Disposition: Acute Care Hospital [facility] What to do if you have Problems For any increased pain, shortness of breath, bleeding, nausea or vomiting, chestpain, or any unexpected problems, contact your Primary Care Provider. Call [facility] ([phone]) or report tothe closest Emergency Room. Call 911 if necessary. 04/19/25 1129 Cosigner Signature (if applicable): CC: Dr. Neymar Xavier MD ~ Signed [facility]10-22-2025 Radiology Diagnostic study note [facility] Imaging Services [address] [place], [place] [id number] Chest 1 View (Portable) MR#: [id number] Acct: [id number] Name: HATTIE VALDERRAMA N Rep #: [id number] : 1945 M 80 From: Shonda Atkinson MD PCP: Dr. Neymar Xavier MD Status: REG ER Study:Chest 1 View (Portable) Date of Exam: 04/19/25 Exam# [id number] Ordering Dr: Waqas Barney MD PROCEDURE: CHEST 1 VIEW (PORTABLE) 04/19/2025 REASON FOR EXAM: PREOPERATIVE CLEARANCE TECHNIQUE: Frontal view of the chest. COMPARISON: None FINDINGS: There is cardiomegaly without overt CHF. There is no focal infiltrate or consolidation. There is nopneumothorax or effusion. There is no acute bony abnormality. Aortic calcifications are noted. RAD/Chest 1 View (Portable) IMPRESSION: There is cardiomegaly without overt CHF. Reading Location: [facility] CC: Dr. Neymar Xavier MD; Dr. Jaydon Barney MD ~ French Binding Folder: Signed [facility]10-22-2025 Radiology Diagnostic study note [facility] Imaging Services [address] [facility] [place] [address] HIP, UNI W/ Pelvis 2-3 Views MR#: [id number] Acct: [id number] Name: HATTIE VALDERRAMA Misty Rep #: [id number] : 1945 M 80 From: Osiel Rios MD PCP: Dr. Neymar Xavier MD Status: REG ER Study:HIP, UNI W/ Pelvis 2-3 Views Date of Ex am: 04/19/25 Exam# [id number] Ordering Dr: Waqas Barney MD PROCEDURE: HIP, UNI W/ PELVIS 2-3 VIEWS 04/19/2025 REASON FOR EXAM: INJURY/PAIN TECHNIQUE: Procedure Code: RADHP Modality: DX Procedure: HIP, UNI W/ PELVIS 2-3 VIEWS Laterality: Right hip. COMPARISON: None FINDINGS: The patient is status post right total hip replacement. There is a fracture through the cervical component of the femoral prosthesis with cephalic migration of the distal fracture fragment. 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 Degenerative changes of the lower lumbar spine. RAD/HIP, UNI W/ Pelvis 2-3 Views IMPRESSION: Transverse cervical fracture of the prosthetic component of the right total hip with cephalic migration of the distal fracture fragment. Reading Location: [place] [address] CC: Dr. Neymar Xavier MD; Dr. Jaydon Barney MD ~ French Binding Folder: Signed [facility]10-16-2025 History of Present illness Narrative* Neymar Xavier MD - 04/13/2025 3:30 PM EDT Subjective Patient ID: Hattie Valderrama [...] compared to the equimolar-standardized total PSA (Renny [place]). Comparison of serial PSA results should be [...] EXERCISE DAILY FU BEFORE documented in this [facility] Work Phone: 1(453) 720-100709-18-2025 History of Present illness Narrative* Neymar Xavier MD - 03/16/2025 4:00 PM EDT Subjective Patient ID: Hattie Valderrama [...] compared to the equimolar-standardized total PSA (Renny [place]). Comparison of serial PSA results should be [...] mo bp Fu before documented in this [facility] Work Phone: 1(155) 968-135008-11-2025 History of Present illness Narrative* Neymar Xavier MD - 02/06/2025 9:00 AM EDT Subjective Patient ID: Hattie [...] 1 week xr doppler documented in this [facility] Work Phone: 1(432) 436-473304-01-2025 History of Present illness Narrative* Neymar Xavier MD - 09/27/2024 4:00 PM EDT Subjective Patient ID: Hattie Valderrama [...] PT FU 2 WEEKS documented in this [facility] Work Phone: 1(864) 138-403903-27-2025 Consult note [facility] Medical Records Department [address] [place] [address] Counseling Note - Pharmacy 09/22/24 1516 MR#: [id number] Acct: [id number] Name: HATTIE VALDERRAMA Rep #:[id number] : 1945 79 From: Kayla Jean PCP: Dr. Neymar Xavier MD Status: ADM IN Y Location: [place] [address] [place] [facility] Pharmacy Service has performed discharge [...] PO DAILY #10 tabs 09/22/24 09/22/24 1516 > Date _ Kayla Curtis Signature (if applicable): Date CC: ~ Signed [facility]03-27-2025 Discharge summary Author Marcelino Gracia [facility] Note Date/Time September 22, 2024 1:[facility] [address] [place] [address] Discharge Summary 09/22/24 1245 MR#: [id number] Acct: [id number] Name: HATTIE VALDERRAMA Misty Rep #:[id number] : 1945 79 From: Marcelino Gracia DO PCP: Dr. Neymar Xavier MD Status: ADM IN Location: [place] [address]-1 Providers Date of Admission: 09/20/24 Primary Care Physician: Dr. Neymar Xavier MD Consultations 09/20/24 21:07 Consult: Acquisition Associate / Pulmonary Medicine Routine Consulting Provider: Intensivists/Pulmonary [...] (Auto) 87.0 H, Lymph % (Auto) 7.4L, Mora % (Auto) 4.9, Eos % (Auto) 0.0, [...] warfarin 2 mg Tablet 4 mg PO [facility] Referrals / Follow Up: Neyamr Xavier MD [Primary Care Provider] - Within 2 Weeks Care Physician,No Primary [Non-Staff] - Disposition Disposition (needs filled in before D/C Order can be placed): Home, Self Care Charges/Coding Visit Charges Inpatient E&M: 01646 Disch Hosp >30min 09/22/24 1312 <Electronically signed by Marcelino Gracia DO> Cosigner Signature (if applicable): CC: Dr. Marcelino Gracia DO; Dr. Neymar Xavier MD~ Signed [facility] Work Phone: 1(104) 401-187003-27-2025 Progress note Author Marcelino Gracia [facility] Note Date/Time September 22, 2024 12: 45pm [facility] Medical Records Department [address] [facility] [place] [address] Progress Note - Hospitalist 09/22/24 0706 MR#: [id number] Acct: [id number] Name: HATTIE VALDERRAMA Rep #:[id number] : 1945 79 From: Marcelino Gracia DO PCP: Dr. Neymar Xavier MD Status: ADM IN Location: [place] [address] Reason for Visit Reason for Visit: Diagnoses [...] (Auto) 87.0 H, Lymph % (Auto) 7.4L, Mora % (Auto) 4.9, Eos % (Auto) 0.0, [...] hydronephrosis. Colonic diverticulosis without diverticulitis. [facility] Physical Exam Const alert and no [...] Cosigner Signature (if applicable): CC: ~ Signed [facility] Work Phone: 1(871) 947-690803-27-2025 Discharge summary [facility] Medical Records Department [address] [place] [address] Discharge Summary 09/22/24 1245 MR#: [id number] Acct: [id number] Name: HATTIE VALDERRAMA Rep #:[id number] : 1945 79 From: Marcelino Gracia DO PCP: Dr. Neymar Xavier MD Status: ADM IN Location: [address] Providers Date of Admission: 09/20/24 Primary Care Physician: Dr. Neymar Xavier MD Consultations 09/20/24 21:07 Consult: Acquisition Associate / Pulmonary Medicine Routine Consulting Provider: Intensivists/Pulmonary [...] (Auto) 87.0 H, Lymph % (Auto) 7.4L, Mora % (Auto) 4.9, Eos % (Auto) 0.0, [...] warfarin 2 mg Tablet 4 mg PO [facility] Referrals / Follow Up: Neymar Xavier MD [Primary Care Provider] - Within 2 Weeks Care Physician,No Primary [Non-Staff] - Disposition Disposition (needs filled in before D/C Order can be placed): Home, Self Care Charges/Coding Visit Charges Inpatient E&M: 74192 Disch Hosp >30min 09/22/24 1312 Cosigner Signature (if applicable): CC: Dr. Marcelino Gracia DO; Dr. Neymar Xavier MD~ Signed [facility]03-27-2025 [facility] Medical Records Department [address] [place] [address] Discharge Summary 09/22/24 1245 MR#: [id number] Acct: [id number] Name: HATTIE VALDERRAMA Rep #: [id number] : 1945 79 From: Marcelino Gracia DO PCP: Dr. Neymar Xavier MD Status:ADM IN Location: [place] [address] Providers Date of Admission: 09/20/24 Primary Care Physician: Dr. Neymar Xavier MD Consultations 09/20/24 21:07 Consult: Acquisition Associate / Pulmonary Medicine Routine Consulting Provider: Intensivists/Pulmonary [...] L, Hgb 11.7 (more content not included)... [facility]03-27-2025 Progress note [facility] Medical Records Department [address] [place] [address] Progress Note - Hospitalist 09/22/24705 MR#: [id number] Acct: [id number] Name: HATTIE VALDERRAMA Misty Rep #:[id number] : 1945 79 From: Marcelino Gracia DO PCP: Dr. Neymar Xavier MD Status: ADM IN Location: MS[facility] WT614-5 Reason for Visit Reason for Visit: Diagnoses [...] (Auto) 87.0 H, Lymph % (Auto) 7.4L, Mora % (Auto) 4.9, Eos % (Auto) 0.0, [...] hydronephrosis. Colonic diverticulosis without diverticulitis. [facility] Exam Const alert and no [...] Cosigner Signature (if applicable): CC: ~ Signed [facility]03-26-2025 Progress note Author Marcelino Gracia [facility] Note Date/Time September 21, 2024 1:1 2pm [facility] Medical Records Department [address] [place] [address] Progress Note - Hospitalist 09/21/24 0746 MR#: [id number] Acct: [id number] Name: HATTIE VALDERRAMA Misty Rep #:[id number] : 1945 79 From: Marcelino Gracia DO [...] (Auto) 84.1 H, Lymph % (Auto) 4.8L, Mora % (Auto) 9.6, Eos % (Auto) 0.4, [...] Clarity Clear, Urine pH 6.0, Ur Specific [place] 1.020, Urine Protein 100 H, Urine Glucose [...] (Auto) 89.8 H, Lymph % (Auto) 5.4L, Mora % (Auto) 4.3, Eos % (Auto) 0.0, [...] out underlying mass. No pneumothorax. Reading Location: [facility] Chest CT 09/20/24 19:45 IMPRESSION: Limited examination [...] suggested. Other findings as above. Reading Location: [facility] Chest/Abdomen/Pelvis CT 09/21/24 04:42 IMPRESSION: Chest: Left lower lobe consolidative and ground-glass opacities, compatible with pneumonia. A few enlarged hilar likely reactive lymph nodes. Abdomen and pelvis: No acute findings in the abdomen and pelvis. 4 mm right inferior pole calculus, without hydronephrosis. Colonic diverticulosis without diverticulitis. Reading Location: [facility] Physical Exam Const alert and no apparent [...] not indicated as already anticoagulated. Transfer to [facility]. Hopefuly 1-2 more days in the hospital. Charges/Coding Visit Charges Inpatient E&M: 06892 Subs Hosp L2 09/21/24 1312 <Electronically signed by Marcelino Gracia DO> Cosigner Signature (if applicable): CC: ~ Signed [facility] Work Phone: 1(116) 851-344803-26-2025 Progress note [facility] Medical Records Department [address] [place] [address] Progress Note - Hospitalist 09/21/24 0746 MR#: [id number] Acct: [id number] Name: HATTIE VALDERRAMA Misty Rep #:[id number] : 1945 79 From: Marcelino Gracia DO [...] (Auto) 84.1 H, Lymph % (Auto) 4.8L, Mora % (Auto) 9.6, Eos % (Auto) 0.4, [...] Clarity Clear, Urine pH 6.0, Ur Specific [place] 1.020, Urine Protein 100 H, Urine Glucose [...] (Auto) 89.8 H, Lymph % (Auto) 5.4L, Mora % (Auto) 4.3, Eos % (Auto) 0.0, [...] out underlying mass. No pneumothorax. Reading Location: [id number] Chest CT 09/20/24 19:45 IMPRESSION: Limited examination [...] suggested. Other findings as above. Reading Location: [id number] Chest/Abdomen/Pelvis CT 09/21/24 04:42 IMPRESSION: Chest: Left lower lobe consolidative and ground-glass opacities, compatible with pneumonia. A few enlarged hilar likely reactive lymph nodes. Abdomen and pelvis: No acute findings in the abdomen and pelvis. 4 mm right inferior pole calculus, without hydronephrosis. Colonic diverticulosis without diverticulitis. Reading [facility] Physical Exam Const alert and no [...] not indicated as already anticoagulated. Transfer to [facility]. Hopefuly 1-2 more days in the hospital. Charges/Coding Visit Charges Inpatient E&M: 65148 Subs Hosp L2 09/21/24 1312 Cosigner Signature (if applicable): CC: ~ Signed [facility]03-26-2025 Consult note Author Garrett Abmrocio [facility] Note Date/Time September 21, 2024 9:1 8am [facility] Medical Records Department [address] [place] [address] Consultation - Acquisition Associate 09/21/24 0753 MR#: [id number] Acct: [id number] Name: HATTIE VALDERRAMA Misty Rep #:[id number] : 1945 79 From: Garrett Ambrocio DO [...] this morning) This note was generated with [employer] ([employer])ation software. It may contain incorrectwords, spelling, and [...] cannula oxygen at 3L/min via nasal cannula. [facility] Medical History Kidney stones Diabetes Atrial fibrillation [...] (Auto) 84.1 H, Lymph % (Auto) 4.8L, Mora % (Auto) 9.6, Eos % (Auto) 0.4, [...] Clarity Clear, Urine pH 6.0, Ur Specific [place] 1.020, Urine Protein 100 H, Urine Glucose [...] (Auto) 89.8 H, Lymph % (Auto) 5.4L, Mora % (Auto) 4.3, Eos % (Auto) 0.0, [...] out underlying mass. No pneumothorax. Reading Location: [id number] Chest CT 09/20/24 19:45 IMPRESSION: Limited examination [...] suggested. Other findings as above. Reading Location: [facility] Chest/Abdomen/Pelvis CT 09/21/24 04:42 IMPRESSION: Chest: Left lower lobe consolidative and ground-glass opacities, compatible with pneumonia. A few enlarged hilar likely reactive lymph nodes. Abdomen and pelvis: No acute findings in the abdomen and pelvis. 4 mm right inferior pole calculus, without hydronephrosis. Colonic diverticulosis without diverticulitis. Reading Location: YUMIKO Charges/Coding Visit Charges Inpatient E&M: 66575 Init Hosp L3 09/21/24 0918 <Electronically signed by Garrett Ambrocio DO> Cosigner Signature (if applicable): CC: Dr. Neymar Xavier MD~ Signed [facility] Work Phone: 1(890) 869-176403-26-2025 Consult note [facility] Medical Records Department [address] [place] [address] 27750 Consultation - Acquisition Associate 09/21/24 8205 MR#: [id number] Acct: [id number] Name: HATTIE VALDERRAMA Rep #:[id number] : 1945 79 From: Garrett Ambrocio DO [...] this morning) This note was generated with Mobileye dictation software. It may contain incorrectwords, spelling, [...] cannula oxygen at 3L/min via nasal cannula. [facility] Medical History Kidney stones Diabetes Atrial fibrillation [...] (Auto) 84.1 H, Lymph % (Auto) 4.8L, Mora % (Auto) 9.6, Eos % (Auto) 0.4, [...] Clarity Clear, Urine pH 6.0, Ur Specific [place] 1.020, Urine Protein 100 H, Urine Glucose [...] (Auto) 89.8 H, Lymph % (Auto) 5.4L, Mora % (Auto) 4.3, Eos % (Auto) 0.0, [...] out underlying mass. No pneumothorax. Reading Location: [facility] Chest CT 09/20/24 19:45 IMPRESSION: Limited examination [...] suggested. Other findings as above. Reading Location: [id number]-[id number] Chest/Abdomen/Pelvis CT 09/21/24 04:42 IMPRESSION: Chest: Left lower lobe consolidative and ground-glass opacities, compatible with pneumonia. A few enlarged hilar likely reactive lymph nodes. Abdomen and pelvis: No acute findings in the abdomen and pelvis. 4 mm right inferior pole calculus, without hydronephrosis. Colonic diverticulosis without diverticulitis. Reading Location: KAYYJASON Charges/Coding Visit Charges Inpatient E&M: 12247 Init Hosp L3 09/21/24 0918 Cosigner Signature (if applicable): CC: Dr. Neymar Xavier MD~ Signed [facility]03-26-2025 History and physical note Author Zeferino Dwyer [facility] Note Date/Time September 21, 2024 6:4 5am [facility] Medical Records Department [address] [place] [address] 11406 H&P Exam - Hospitalist 09/20/241942 MR#: [id number] Acct: [id number] Name: HATTIE VALDERRAMA Rep #:[id number] : 1945 79 From: Zeferino Azevedo DO PCP: Dr. Neymar Xavier MD Status: ADM IN Location: ICU ICU02-1 HPI - General [...] chronic low back pain who presents to [facility] ER complaining of shortness of breath, cough [...] is expected to extend beyond 2 midnights. [facility] Medical History Kidney stones Diabetes Atrial fibrillation [...] (Auto) 84.1 H, Lymph % (Auto) 4.8L, Mora % (Auto) 9.6, Eos % (Auto) 0.4, [...] Clarity Clear, Urine pH 6.0, Ur Specific [place] 1.020, Urine Protein 100 H, Urine Glucose [...] out underlying mass. No pneumothorax. Reading Location: [id number] [facility] Imaging Services [address] [place] [address] Chest without Contrast MR#: [id number] Acct: [id number] Name: HATTIE VALDERRAMA Rep #: [id number] : 1945 M 79 From: Tal Negron MD PCP: Dr. Neymar Xavier MD Status: ADM IN Study: Chest without Contrast Date of Exam: 09/20/24 Exam# [id number] Ordering Dr: Stone Leong DO PROCEDURE: CHEST [...] Calcified lymph nodes within the bilateral hilum, upfc-aftboyq-vuuw-right may suggest history of granulomatous disease. 2.4 [...] suggested. Other findings as above. Reading Location: [id number]-OQ CC: Dr. Stone Leong, ; Dr. Neymar Xavier MD ~ French Binding Folder: Signed Assessment & Plan Assessment/Plan (1) Sepsis: [...] causes of confusion. 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 Zeferino Estrada DO; Dr. Neymar Xavier MD~ Signed [facility] Work Phone: 1([phone]) 516-860103-26-2025 Radiology Diagnostic study note [facility] Imaging Services [address] [place], [place] [address] CT Chest, Abd, Pel w/Contrast MR#: [id number] Acct: [id number] Name: YAZMINANDREINAHATTIE Rep #: [id number] : 1945 M 79 From: Cherri Astudillo MD PCP: Dr. Neymar Xavier MD Status: ADM IN Study:CT Chest, Abd, Pel w/Contrast Date of Crystal ariza: 09/21/24 Exam# [id number] Ordering Dr: Zeferino Alston DO PROCEDURE: CT [...] Estrada DO; Dr. Neymar Xavier MD ~ French Binding Folder: Signed [facility]03-26-2025 History and physical note [facility] Medical Records Department [address] [place] [address] H&P Exam - Hospitalist 09/20/241942 MR#: [id number] Acct: [id number] Name: HATTIE VALDERRAMA Rep #:[id number] : 1945 79 From: Zeferino Azevedo DO PCP: Dr. Neymar Xavier MD Status: ADM IN Location: ICU ICU02-1 HPI - General [...] chronic low back pain who presents to [facility] ER complaining of shortness of breath, cough and body aches. Mr. Valderrama is a suboptimal historian at this time so information was gathered from chart, medical staff, computer and his at the bedside. According to the records he began to become ill over the weekend on Thursday, September 20, 2024 with aviral upper respiratory [...] room air with VBG pCO2 C mix qUM483.8 mmHg pluslaboratory evidence of Dehydration; with BUN/creatinine ratio of 34.2 present onadmission in addition to clinical evidence of Acute Metabolic Encephalopathy. He was then admitted to theICU for ongoing care under the sepsis protocol for astay of is expected to extend beyond 2 midnights. [facility] Medical History Kidney stones Diabetes Atrial fibrillation [...] (Auto) 84.1 H, Lymph % (Auto) 4.8L, Mora % (Auto) 9.6, Eos % (Auto) 0.4, [...] Clarity Clear, Urine pH 6.0, Ur Specific [place] 1.020, Urine Protein 100 H, Urine Glucose [...] out underlying mass. No pneumothorax. Reading Location: [id number] [facility] Imaging Services [address] [place] [address] [id number] Chest without Contrast MR#: [id number] Acct: [id number] Name: HATTIE VALDERRAMA Rep #: [id number] : 1945 M 79 From: Tal Negron MD PCP: Dr. Neymar Xavier MD Status: ADM IN Study: Chest without Contrast Date of Exam: 09/20/24 Exam# [id number] Ordering Dr: Stone Leong DO PROCEDURE: CHEST [...] Calcified lymph nodes within the bilateral hilum, iuzq-scuujak-acoe-right may suggest history of granulomatous disease. 2.4 [...] suggested. Other findings as above. Reading Location: EUH-VXFFUAQG-BK CC: Dr. Stone Regalado-Tomas, DO; Dr. Neymar Xavier MD ~ French Binding Folder: Signed Assessment & Plan Assessment/Plan (1) Sepsis: [...] causes of confusion. 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 Zeferino Estrada DO; Dr. Neymar Xavier MD~ Signed [facility]03-26-2025 Discharge summary Author Stone Leong [facility] Note Date/Time September 21, 2024 2:3 7am [facility] Medical Records Department [address] [place] [address] Emergency Department Summary 09/20/24 MR#: [id number] Acct: [id number] Name: HATTIE VALDERRAMA Rep #:[id number] : 1945 79 From: Stone pizarro DO [...] intact Psych: Cooperative, appropriate mood and affect [facility] Medical History Kidney stones Diabetes Atrial fibrillation [...] 84.1 H Lymph % (Auto) 4.8 L Mora % (Auto) 9.6 Eos % (Auto) 0.4 [...] Clarity Clear Urine pH 6.0 Ur Specific [place] 1.020 Urine Protein 100 H Urine Glucose [...] out underlying mass. No pneumothorax. Reading Location: [facility] Chest CT 09/20/24 19:45 IMPRESSION: Limited examination [...] suggested. Other findings as above. Reading Location: [facility] Discharge Plan Disposition Disposition: Acute Care Hospital [facility] Discharge Date/Time: 09/20/24 20:44 What to do if you have Problems For any increased pain, shortness of breath, bleeding, nausea or vomiting, chestpain, or any unexpected problems, contact your Primary Care Provider. Call [facility] ([phone]) or report to the closest Emergency Room. [...] cc: Dr. Neymar Xavier MD ~* Signed [facility] Work Phone: 1([phone]) 697-169103-26-2025 Discharge summary [facility] Medical Records Department [address] [place] [address] Emergency Department Summary 09/20/24 MR#: [id number] Acct: [id number] Name: HATTIE VALDERRAMA Rep #:[id number] : 1945 79 From: Stone pizarro DO [...] intact Psych: Cooperative, appropriate mood and affect [facility] History Kidney stones Diabetes Atrial [...] 84.1 H Lymph % (Auto) 4.8 L Mora % (Auto) 9.6 Eos % (Auto) 0.4 [...] Clarity Clear Urine pH 6.0 Ur Specific [place] 1.020 Urine Protein 100 H Urine Glucose [...] out underlying mass. No pneumothorax. Reading Location: [facility] Chest CT 09/20/24 19:45 IMPRESSION: Limited examination [...] suggested. Other findings as above. Reading Location: [facility] Discharge Plan Disposition Disposition: Acute Care Hospital [facility] Discharge Date/Time: 09/20/24 20:44 What to do if you have Problems For any increased pain, shortness of breath, bleeding, nausea or vomiting, chestpain, or any unexpected problems, contact your Primary Care Provider. Call [facility] ([phone]) or report tothe closest Emergency Room. Call 911 if necessary. 09/21/24231 Cosigner Signature (if applicable): CC: Dr. Neymar Xavier MD ~ Signed ADDENDUM by Dr. Stone Leong DO on 09/21/24 at 0237 5. COPD exacerbation 6. Acute hypoxic respiratory failure requiring Airvo 09/21/24236 Cosigner Signature (if applicable): cc: Dr. Neymar Xavier MD ~* Signed [facility]03-25-2025 Evaluation note* Diagnosis Onset Date Resolution Status [...] 8:11pm COPD exacerbation chronic August 282024 8:11pm [facility] Work Phone: [phone] Radiology Diagnostic study note [facility] Imaging Services [address] [place], [place] [address] Chest without Contrast MR#: [id number] Acct: [id number] Name: HATTIE VALDERRAMA Misty Rep #: [id number] : 1945 M 79 From: Jose Alberto Negron MD PCP: Dr. Neymar Xavier MD Status: ADM IN Study:Chest without Contrast Date of Exam: 09/20/24 Exam# [id number] Ordering Dr: Stone Barksdale DO PROCEDURE: CHEST [...] Calcified lymph nodes within the bilateral hilum, glbi-ryuhbdx-wkoa-right may suggest history of granulomatous disease. 2.4 [...] suggested. Other findings as above. Reading Location: [id number]-KX CC: Dr. Stone Leong DO; Dr. Neymar Xavier MD ~ French Binding Folder: Signed [facility]03-25-2025 Radiology Diagnostic study note [facility] Imaging Services [address] [place] [address] Chest 1 View (Portable) MR#: [id number] Acct: [id number] Name: HATTIE VALDERRAMA Rep #: [id number] : 1945 M 79 From: Jose Alberto Negron MD PCP: Care Physician,No Primary Status: PRE ER Study:Chest 1 View (Portable) Date of Exam: 09/20/24 Exam# [id number] Ordering Dr: Stone Barksdale DO PROCEDURE: CHEST [...] out underlying mass. No pneumothorax. Reading Location: [facility] CC: Dr. Stone Leong DO; No Primary Care Physician ~ French Binding Folder: Signed [facility]02-03-2025 Evaluation + Plan note* Assessment & Plan Note - Neymar Xavier MD - 08/01/2024 11:30 AM ESTAssociated Problem(s): Benign essential hypertension Orders: Comprehensive Metabolic Panel; Future [facility] Work Phone: [phone] 216-429902-03-2025 Evaluation + Plan note* Assessment & Plan Note - Neymar Xavier MD - 08/01/2024 11:30 AM ESTAssociated Problem(s): Type 2 diabetes mellitus with hyperglycemia, without long-term current use of insulin Orders: Comprehensive Metabolic Panel; Future Hemoglobin A1C; Future [facility] Work Phone: [phone]) 491-389302-03-2025 Evaluation + Plan note* Assessment & Plan Note - Neymar Xavier MD - 08/01/2024 11:30 AM ESTAssociated Problem(s): Hypercholesterolemia Orders: Comprehensive Metabolic Panel; Future TSH with reflex to Free T4 if abnormal; Future Lipid Panel; Future [facility] Work Phone: 1(861) 515-596302-03-2025 Evaluation + Plan note* Assessment & Plan Note - Neymar Xavier MD - 08/01/2024 11:30 AM ESTAssociated Problem(s): Hypertriglyceridemia Orders: Comprehensive Metabolic Panel; Future Lipid Panel; Future [facility] Work Phone: [phone]) 358-208202-03-2025 Evaluation + Plan note* Assessment & Plan Note - Neymar Xavier MD - 08/01/2024 11:30 AM ESTAssociated Problem(s): Type 2 diabetes mellitus with diabetic cataract, without long-term current use of insulin Orders: Comprehensive Metabolic Panel; Future [facility] Work Phone: [phone] 515-398002-03-2025 Evaluation + Plan note* Assessment & Plan Note - Neymar Xavier MD - 08/01/2024 11:30 AM ESTAssociated Problem(s): Psoriatic arthritis (Multi) Orders: Comprehensive Metabolic Panel; Future TSH with reflex to Free T4 if abnormal; Future [facility] Work Phone: [phone] 368-960802-03-2025 Evaluation + Plan note* Assessment & Plan Note - Neymar Xavier MD - 08/01/2024 11:30 AM ESTAssociated Problem(s): Chronic atrial fibrillation, unspecified (Multi) Orders: Comprehensive Metabolic Panel; Future TSH with reflex to Free T4 if abnormal; Future [facility] Work Phone: [phone] History of Present illness Narrative* Neymar Xavier [...] Fu 6 mo bw documented in this [facility] Work Phone: [phone] Miscellaneous Notes* Assessment & Plan Note - [...] T4 if abnormal; Future documented in this [facility] Work Phone: [phone]) 207-310008-29-2024 History of Present illness Narrative* Kayla Muse PA-C - 02/25/2024 2:20 PM EDT Subjective Patient ID: Hattie Valderrama is a 78 y.o. male who presents for Follow-up (PT NEEDS CLEARANCE FOR EYEPROCEDURE ) HPI Patient presents today as Dr Xavier patient for Pre op clearance for Brink [...] mouth once daily at bedtime. As directed [facility] 90 tablet 3 No current facility-administered medications [...] Behavior: Behavior normal. Testing Component Latest Ref Rn 02/25/2024 WBC 4.4 - 11.3 x10*3/uL 8.1 [...] labs and med check [facility]: 1([phone]) 753-608207-22-2024 History of Present illness Narrative* Neymar Xavier [...] WT EXERCISE DAILY Labs reviewed with pt Fu 4 mo bw [facility]: 1([phone]) 157-646103-20-2024 History of Present illness Narrative* Neymar Xavier [...] long-term current use of insulin (CMS/HCC) Relevant Medications blood sugar diagnostic (Accu-Chek SmartView Test Strip) strip Other Relevant Orders Comprehensive Metabolic Panel Hypercholesterolemia Relevant Orders Comprehensive Metabolic Panel Lipid Panel Hypertriglyceridemia Relevant Orders Comprehensive Metabolic Panel Lipid Panel Other Visit Diagnoses Routine general medical examination at health care facility - Primary Relevant Orders Comprehensive Metabolic Panel Type 2 diabetes mellitus without complication, without long-term current use of insulin ([facility]) Relevant Medications blood sugar diagnostic (Accu-Chek [...] OR PROCEDURE REFERRAL, . documented in this [facility] Work Phone: [phone]) [phone] History of Present illness Narrative* Neymar Xavier [...] hyperglycemia, without long-term current use of insulin (CMS/[facility]) Relevant Orders CBC and Auto Differential Hemoglobin [...] OR PROCEDURE REFERRAL, . documented in this [facility] Work Phone: [phone] 606-858110-10-2023 History of Present illness Narrative* Neymar Xavier [...] 13-18 <7.5 7-12 <8.0 0- 6 7.5-8.5 [employer]. Diabetes Care 33(S1), Jun 2009. Assessment/Plan Problem List Items Addressed This Visit Type 2 diabetes mellitus with hyperglycemia, without long-term current use of insulin ([facility]) Other Visit Diagnoses Cellulitis, unspecified cellulitis [...] OR PROCEDURE REFERRAL, . documented in this [facility] Work Phone: [phone] History of Present illness Narrative* Neymar Xavier [...] 13-18 <7.5 7-12 <8.0 0- 6 7.5-8.5 [employer]. Diabetes Care 33(S1), Jun 2009. Assessment/Plan Problem List Items Addressed This Visit Benign essential hypertension Relevant Orders Comprehensive Metabolic Panel Chronic atrial fibrillation, unspecified (CMS/HCC) Relevant Orders Comprehensive Metabolic Panel DM2 (diabetes mellitus, type 2) ([facility]) Relevant Orders Comprehensive Metabolic Panel Hemoglobin A1C Hypercholesterolemia Relevant Orders Comprehensive Metabolic Panel Hypertriglyceridemia Relevant Orders Comprehensive Metabolic Panel Psoriatic arthritis ([facility]) Relevant Orders Comprehensive Metabolic Panel Other [...] . 4 mo bw [facility]: [phone]) [phone] Evaluation + Plan note* Assessment & Plan Note - Neymar Xavier MD - 09/10/2022 11:28 AM EDTAssociated Problem(s): Chronic atrial fibrillation, unspecified (CMS/HCC) Doing fine and stable with current management, continue same [facility] Work Phone: [phone] 479-221603-15-2023 Evaluation + Plan note* Assessment & Plan Note - Neymar Xavier MD - 09/10/2022 11:28 AM EDTAssociated Problem(s): DM2 (diabetes mellitus, type 2) (CMS/HCC) [address] HGA1C GOAL LESS THAN 7 LOSE WT EXERCISE DAILY [facility] Work Phone: [phone]) 478-874703-15-2023 Evaluation + Plan note* Assessment & Plan Note - Neymar Xavier MD - 09/10/2022 11:28 AM EDTAssociated Problem(s): Benign essential hypertension MONITOR BP GOAL BP LOWER THAN 130/80 LOW SALT EXERCISE DAILY [facility] Work Phone: [phone]) [phone] Miscellaneous Notes* Assessment & Plan Note - Neymar Xavier MD - 09/10/2022 11:28 AM EDTAssociated Problem(s): Chronic atrial fibrillation, unspecified (CMS/HCC) Doing fine and stable with current management, continue same * Assessment & Plan Note - Neymar Xavier MD - 09/10/2022 11:28 AM EDT Associated Problem(s): DM2 (diabetes mellitus, type 2) ([facility]) [address] HGA1C GOAL LESS THAN 7 LOSE WT EXERCISE DAILY * Assessment & Plan Note - Neymar Xavier MD - 09/10/2022 11:28 AM EDT Associated Problem(s): Benign essential hypertension MONITOR BP GOAL BP LOWER THAN 130/80 LOW SALT EXERCISE DAILY documented in this [facility] Work Phone: [phone] History of Present illness Narrative* Neymar Xavier [...] Up In Primary Care Musculoskeletal Psoriatic arthritis (CMS/HCC) Relevant Orders Follow Up In Primary Care Prostate Specific Antigen, Screen Endocrine/Metabolic DM2 (diabetes mellitus, type 2) ([facility]) - Primary Current Assessment & Plan [...] OR PROCEDURE REFERRAL, . [facility] Work Phone: Consult note Author Kayla Jean [facility] Note Date/Time September 22, 2024 3:2 5pm [facility] Medical Records Department [address] [place] [address] 269[address] Counseling Note - Pharmacy 09/22/24 1516 MR#: [id number] Acct: [id number] Name: HATTIE VALDERRAMA Rep #:[id number] : 1945 79 From: Kayla Jean PCP: Dr. Neymar Xavier MD Status: ADM IN Y Location: [place] [address] [place]acy [place] [facility] Pharmacy Service has performed discharge [...] mg) PO DAILY #10 tabs 09/22/24 09/22/24 8206 <Electronically signed by Kayla Jean > Date _ Kayla Jean Cosigner Signature (if applicable): Date CC: ~ Signed [facility] Work Phone: Consult note [facility] Medical Records Department [address] [place] [address] 34228 Pre-Anesthesia Evaluation 04/20/25 1337 MR#: [id number] Acct: [id number] Name: HATTIE VALDERRAMA Rep #:[id number] : 1945 80 From: Abdiel Smith PCP: Dr. Neymar Xavier MD Status: ADM IN Y Race: C Location: [place] [address] 91 ASA Classification* ASA Classification ASA Classification: 2 Assessment & Plan Anesthesia* Anesthesia Assessment Anesthesia Assessment: Discussed sedation and/or anesthesia options, risks, benefits, and alternatives with patient/parents/legal guardian/POA. Questions invited. The patient/parents/legal guardian/POA seems to understand and agrees to proceedwith anesthesia plan. Reviewed the physical assessment, medical history, allergy history and patient home medications list prior to surgery/procedure/anesthetic and documented any changes. Performed airway and anesthesia risk assessments. Anesthesia Type Anesthesia Type: General History Source History Obtained from:: Patient and Chart Anesthesia Focused Assessment* Temperature: 99.1 F Pulse Rate: 79 Blood Pressure: 126/72 Respiratory Rate: 16 Pulse Ox: 92 Oxygen Delivery Method: Room Air Airway Assessment Mouth opens: >3 cm Mallampati Score: II Teeth Condition: Missing (No upper teeth. Present few teeth lower jaw.) Neck Range of motion (ROM): Full ROM Labs Anesthesia Preop lab: CBC WBC, (4.4-11.0) 10.2 K/mm3 Today, 03:48 RBC, (4.6-6.2) 3.84 M/mm3 L Today, 03:48 Hgb, (13.0-16.5) 12.4 g/dL L Today, 03:48 Hct, (40-54) 36.2 % L Today, 03:48 Plt Count, (150-450) 243 K/mm3 Today, 03:48 CHEMISTRY Potassium, (3.3-5.1) 4.2 mmol/L Today, 03:48 Sodium, (133-145) 140 mmol/L Today, 03:48 Magnesium, (1.5-2.2) 1.7 mg/dL 09/20/24, 20:35 Phosphorus, (2.7-4.5) 2.1 mg/dL L 09/22/24, 05:53 BUN, (4-19) 15 mg/dL Today, 03:48 Creatinine, (0.70-1.20) 0.77 mg/dL Today, 03:48 Glucose, (70-99) 138 mg/dL H Today, 03:48 POC Glucose, (74-106) 143 mg/dL H Today, 12:05 TSH, (0.300-4.200) 0.328 uIU/mL 09/20/24, 21:43 COAG PT, (11.7-14.9) 19.3 SECONDS H Today, 03:48 Pre-Assessment Diagnosis/Proposed Procedure Planned Operative Procedure(s): Right hip posterior revision total hip Anesthesia History 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 When Was Last Pacemaker Check QUESTION #4 FULL TEXT: You/Your Family Experience fever (hyperthermia) with Anesthesia Last Oral Intake Last Oral intake: Last Oral Intake NPO since 23:00 04/20/25 13:07 Meds taken in AM with sips of Yes 04/20/25 13:07 water? Meds patient instructed to see med list 04/20/25 13:07 take am of surgery PONV PONV - spring winder: PONV - spring winder Female HX of Motion Sickness HX of N/V After Surgery Non-Smoker Duration of Surgery greater than 60 minutes Number of Risk Factors PONV Score Height & Weight Height & Weight: Anesthesia: Height & Weight Height 6 ft 04/20/25 13:07 Weight: 100.7 kg 04/20/25 13:07 Body Mass Index (BMI) 30.1 04/20/25 13:07 Respiratory Assessment Respiratory Assessment - spring winder: Respiratory Tract Infection Hx - spring winder Hx Respiratory Tract Infection STOP Sleep Apnea STOP Sleep Apnea - spring winder: STOP Sleep Apnea - spring winder Hx Hypertension Yes 04/19/25 13:36 Hx Sleep Apnea Yes 04/19/25 13:36 CPAP Yes 04/19/25 13:36 BIPAP No 04/19/25 13:36 Do you snore loudly (louder than talking or can be heard Do you often feel tired/ fatigued/ sleepy during daytime? Has anyone observed you stop breathing during sleep? STOP Results Positive 04/19/25 13:36 QUESTION #5 FULL TEXT : Do you snore loudly (louder than talking or can be heard through closeddoors)? 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 Specify any problems Hx of Preganancy in last 3 N/A 04/19/25 13:36 Months Nurse Filling Out Transfusion KGLAZIER 04/19/25 13:36 & Questions: Date: 04/19/25 04/19/25 13:36 Time: 13:38 04/19/25 13:36 Patient unable to answer at this time (ie. confused, unrespo /Reproduction History /Reproductive History - spring winder: /Reproductive Hx- spring winder Hx Now Gestational Age (in weeks): EDC: Hx Hx Para Hx Section SAB Active Medications Active Medications: Current Medications Generic Name Dose Route Start Last Admin Trade Name Freq PRN Reason Stop Dose Admin Acetaminophen 650 mg 04/19/25 12:50 04/19/25 21:51 Acetaminophen 325 Mg Tablet PO 650 mg Q6H PRN PRN Administration Pain 1-10 Or Fever >100.7 Atorvastatin Calcium 40 mg 04/19/25 22:00 04/19/25 21:46 Atorvastatin Calcium 40 Mg Tablet PO 40 mg QHS LO Administration Glucagon 1 mg 04/19/25 12:50 Glucagon 1 Mg/Ml Syringe IM X1 PRN HYPOGLYCEMIA Protocol Guaifenesin 1,200 mg 04/20/25 22:00 Guaifenesin 1,200 Mg Tablet PO BID LO Dextrose 250 mls @ 0 mls/hr 04/19/25 12:50 Dextrose 10%-Water IV .Q0M PRN HYPOGLYCEMIA Protocol As Directed Sodium Chloride 250 mls @ 15 mls/hr 04/19/25 13:36 IV .[id number] PRN Saline Flush Sodium Chloride 250 mls @ 15 mls/hr 04/19/25 13:36 IV .[id number] PRN Additional IVPB Infusion Sodium Chloride 250 mls @ 15 mls/hr 04/20/25 10:02 IV .[id number] PRN Saline Flush Sodium Chloride 250 mls @ 15 mls/hr 04/20/25 10:02 IV .[id number] PRN Additional IVPB Infusion Lactated Ringer's 1,000 mls @ 15 mls/hr 04/20/25 13:00 04/20/25 13:14 IV 15 mls/hr .Q48H LO Administration Insulin Human Lispro 0 unit 04/19/25 16:00 04/20/25 12:53 Insulin Lispro 100 Unit/Ml Insuln.Pen SC Not Given ACHS LO Protocol Losartan Potassium 100 mg 04/20/25 10:00 04/20/25 08:25 Losartan Potassium 100 Mg Tablet PO 100 mg DAILY LO Administration Protocol Metformin HCl 1,000 mg 04/20/25 08:00 04/20/25 08:28 Metformin Hcl 1,000 Mg Tablet PO Not Given BIDCM [facility] Metoprolol Succinate 100 mg 04/20/25 10:00 04/20/25 08:25 Metoprolol(Xl)Succ 100 Mg Tablet PO 100 mg DAILY LO Administration Protocol Morphine Sulfate 2 - 4 mg 04/19/25 12:50 04/20/25 03:58 Morphine 2 Mg/Ml Syringe IV 2 mg Q3H PRN PRN Administration Pain Score 6-10 Ondansetron HCl 4 mg 04/19/25 12:50 Ondansetron 4 Mg/2 Ml Vial IV Q8H PRN PRN NAUSEA/VOMITING Oxycodone HCl 5 mg 04/19/25 12:50 04/19/25 21:51 Oxycodone 5 Mg Tablet PO 5 mg Q4H PRN PRN Administration Pain Score 4-10 Senna/Docusate Sodium 2 tablet 04/19/25 22:00 04/20/25 08:25 Senna/Docusate Sodium 1 Tablet PO Not Given BID LO Sodium Chloride 10 - 40 ml 04/19/25 13:36 04/20/25 03:58 0.9% Saline Lock 10 Ml Syringe IV 10 ml UD PRN Administration SALINE FLUSH Sodium Chloride 10 - 40 ml 04/20/25 10:02 0.9% Saline Lock 10 Ml Syringe IV UD PRN SALINE FLUSH PFSH Medical History Overweight (BMI 25.0-29.9) Kidney stones Diabetes Atrial fibrillation Hypertension Home Medications ?Medication ?Instructions ?Recorded ?Last Taken ?Type atorvastatin 40 mg tablet 40 mg PO QHS CHOLESTEROL 04/18/25 History glimepiride 2 mg tablet 2 mg PO DAILY DIABETES 05/2004/18/25 History losartan 50 mg tablet 100 mg PO DAILY BLOOD PRESSU RE 05/20/22 04/18/25 History metformin 500 mg tablet 1,000 mg PO BID DIABETES 04/19/25 History metoprolol succinate 100 mg 100 mg PO DAILY BLOOD PRES SURE AND 05/20/22 04/19/25 History tablet,extended release 24 hr HEART RATE warfarin 2 mg tablet 4 mg PO SUTUTHSA blood clots 05/20/22 04/18/25 History warfarin 2 mg tablet 6 mg PO QMWF blood clots 04/17/25 History amlodipine 5 mg tablet 5 mg PO DAILY high blood pre ssure 04/19/25 04/18/25 History aspirin 81 mg tablet,delayed 81 mg PO DAILY low dose 1 04/18/25 History release (Adult Low Dose Aspirin) magnesium 500 mg tablet 15 mg PO DAILY for low mag 1 04/18/25 History Allergy/AdvReac Type Severity Reaction Status Date / Time No Known Allergies Allergy Verified 04/20/25 13:06 Family History Other Heart disease Surgical History History of hip replacement History of knee replacement Social History Smoking Status: Former smoker Review of Systems (Anesthesia) ROS Narrative System reviewed and no additional complaints, except as documented. 04/20/25 1345 MD> Date _ Abdiel Pittman MD Cosigner Signature: Date CC: ~ Signed [facility] Medical Records Department [address] [place] [address] Consultation - Orthopedics 04/20/25 1339 MR#: [id number] Acct: [id number] Name: HATTIE VALDERRAMA Rep #:[id number] : 1945 80 From: Hugo Smith PCP: Dr. Neymar Xavier MD Status: ADM IN Location: [place] [address] HPI Consult Data Date of Consult: 04/20/25 HPI Narrative Reason for Consultation: Right hip pain HPI Narrative: HATTIE VALDERRAMA, is a 80 M who presents today with right hip pain and an inability to bear weight on the right lower extremity. Patient has a history of a right total replacement done in 2006 at an outside facility. Patient reports no complications with the surgery. He said no issues with the with thesurgery andno antecedent pain leading up to yesterday's events. Patient notes he has not followed up with his operating surgeon and quite some time. Patient reports 10 out of 10 pain today worse with motion better with immobilization. Patient'julia is located in the groin and thigh on the right. 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 He fell to the ground and was unable to bear weight at that time. 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 Denies any associated numbness and tingling.Patient does take Coumadin for hisatrial fibrillation. On his admission patient had INR of 2.7 which has been reversed to 1.6. Patient does have diabetes and his current hemoglobin A1c is 6.7 [facility] Medical History Overweight (BMI 25.0-29.9) Kidney stones Diabetes Atrial fibrillation Hypertension Home Medications ?Medication ?Instructions ?Recorded ?Last Taken ?Type atorvastatin 40 mg tablet 40 mg PO QHS CHOLESTEROL 04/18/25 History glimepiride 2 mg tablet 2 mg PO DAILY DIABETES 05/2004/18/25 History losartan 50 mg tablet 100 mg PO DAILY BLOOD PRESSU RE 05/20/22 04/18/25 History metformin 500 mg tablet 1,000 mg PO BID DIABETES 04/19/25 History metoprolol succinate 100 mg 100 mg PO DAILY BLOOD PRES SURE AND 05/20/22 04/19/25 History tablet,extended release 24 hr HEART RATE warfarin 2 mg tablet 4 mg PO SUTUTHSA blood clots 05/20/22 04/18/25 History warfarin 2 mg tablet 6 mg PO QMWF blood clots 04/17/25 History amlodipine 5 mg tablet 5 mg PO DAILY high blood pre ssure 04/19/25 04/18/25 History aspirin 81 mg tablet,delayed 81 mg PO DAILY low dose 1 04/18/25 History release (Adult Low Dose Aspirin) magnesium 500 mg tablet 15 mg PO DAILY for low mag 1 04/18/25 History Allergy/AdvReac Type Severity Reaction Status Date / Time No Known Allergies Allergy Verified 04/20/25 13:06 Family History Other Heart disease Surgical History History of hip replacement History of knee replacement Social History Smoking Status: Former smoker ROS ROS Narrative 14 point review systems outside of what is mentioned in the HPI is negative. Vital Signs Vital Signs Vital Signs: 04/19/25 13:55 04/19/25 13:59 04/19/25 17:31 Temperature 97.7 F L 98.7 F Temperature Source Oral Oral Pulse Rate 76 90 Pulse Strength Respiratory Rate 16 16 Respiratory Effort Non-Labored Respiratory Depth Normal Respiratory Pattern Normal Blood Pressure 108/74 131/73 H Blood Pressure Mean 85 92 Blood Pressure Source Monitor Blood Pressure Position Supine Blood Pressure Location Pulse Ox 94 94 Oxygen Delivery Method Room Air Room Air Room Air 04/19/25 19:38 04/19/25 19:53 04/19/25 21:42 Temperature 98.4 F Temperature Source Oral Pulse Rate 107 H Pulse Strength Normal (2+) Respiratory Rate 19 H Respiratory Effort Non-Labored Respiratory Depth Normal Respiratory Pattern Normal Blood Pressure 134/91 H Blood Pressure Mean 105 Blood Pressure Source Monitor Blood Pressure Position Supine Blood Pressure Location Right Arm Pulse Ox 100 Oxygen Delivery Method Room Air Room Air 04/20/25 03:00 04/20/25 03:56 04/20/25 04:26 Temperature 98.0 F Temperature Source Oral Pulse Rate 86 86 Pulse Strength Respiratory Rate 19 H Respiratory Effort Non-Labored Respiratory Depth Normal Respiratory Pattern Normal Blood Pressure 119/66 Blood Pressure Mean 83 Blood Pressure Source Blood Pressure Position Blood Pressure Location Pulse Ox 93 Oxygen Delivery Method Room Air Room Air 04/20/25 08:16 04/20/25 08:22 04/20/25 08:25 Temperature 98.2 F Temperature Source Oral Pulse Rate 93 93 Pulse Strength Respiratory Rate 18 Respiratory Effort Non-Labored Respiratory Depth Normal Respiratory Pattern Normal Blood Pressure 111/75 Blood Pressure Mean 87 Blood Pressure Source Blood Pressure Position Blood Pressure Location Pulse Ox 91 Oxygen Delivery Method Room Air Room Air 04/20/25 13:07 Temperature 99.1 F Temperature Source Temporal Pulse Rate 79 Pulse Strength Respiratory Rate 16 Respiratory Effort Respiratory Depth Respiratory Pattern Blood Pressure 126/72 H Blood Pressure Mean 90 Blood Pressure Source Monitor Blood Pressure Position Supine Blood Pressure Location Left Arm Pulse Ox 92 Oxygen Delivery Method Room Air Weight Weight: 222 lb 0.088 oz Body Mass Index (BMI) 30.1 Physical Exam Const alert and oriented x3 General Appearance: cooperative HEENT normocephalic, head/scalp atraumatic and dentition normal Eyes PERRL Neck no JVD Resp normal respiratory effort Cardio Cardio Narrative: Irregular distal pulses GI non-distended Extremity Extremity Narrative: Right lower extremity: Previous incision is clean dry and intact. Leg is shortened and externally rotated. Thigh is without significant swelling. Tenderness palpate around the thigh. No redness of the incision. Neurovasc intact distally with positive dorsiflexion EHL plantarflexion. Strength testing deferred secondary to pain. Positive sensation saphenous, sural, superficial peroneal, deep peroneal and tibial nerve distributions distally. Palpable DP pulses. Skin Skin Narrative: Previous incision is clean dry and intact Neuro CN's II-XII intact bilaterally Gait (Neuro): Negative for normal gait Psych affect normal Medical Records Data Attestation: I reviewed the patient's medical records Lab / Micro Data 04/20/25 03:48 04/20/25 03:48 Labs: Laboratory Results - last 24 hr 04/19/25 09:50: Total Bilirubin 0.59, Direct Bilirubin 0.28, AST 20, ALT 18, Alkaline Phosphatase 65, Total Protein 6.9, Albumin 4.1, Globulin 2.8, Vitamin Q80-Lieptbs 39.5 04/19/25 14:36: PT 28.7 H, INR 2.6 04/19/25 17:23: POC Glucose 151 H 04/19/25 21:57: POC Glucose 122 H 04/20/25 03:48: WBC 10.2, RBC 3.84 L, Hgb 12.4 L, Hct 36.2 L, MCV 94.3 H, MCH 32.3 H, MCHC 34.3, RDW Std Deviation 46.4 H, RDW Coeff of Risa 13.4, Plt Count 243, MPV 10.9, Immature Gran % (Auto) 0.200, Neut % (Auto) 69.5, Lymph % (Auto) 19.0, Mora % (Auto) 9.7, Eos % (Auto) 1.2, Baso % (Auto) 0.4, Absolute Neuts (auto) 7.1, Absolute Lymphs (auto) 1.94, Nucleated RBC % 0, PT 19.3 H, INR 1.6, [id number], Potassium 4.2, Chloride 104, Carbon Dioxide 25.0, Anion Gap 11, BUN 15, Creatinine 0.77, EstimCreat Clear Calc 92.98, Est GFR (MDRD) Non-Af 91, BUN/Creatinine Ratio 19.2, Glucose 138 H, Hemoglobin A1c 6.7 H, Calcium 9.1, Blood Type O POSITIVE, Antibody Screen NEGATIVE 04/20/25 07:02: POC Glucose 131 H 04/20/25 12:05: POC Glucose 143 H Imaging Right hip films were reviewed. Patient has previous right total replacement with dissociation of femoral head and femoral component trunnion. Acetabular component appears to be appropriately aligned.There is erosion of the femoral trunnion. There is osteolysis in the greater trochanteric area of the femur with hypodense radiograph material likely consistent with metallic debris. Patient does have a history of questionable lytic bone lesion on previous CT scan. I did review it appears to be a periarticular cyst in relation to his osteoarthritis. Repeat CT scan did not show further concerns. Assessment & Plan Assessment/Plan (1) Prosthetic hip implant failure: PLAN: Patient has a previous [employer] 1 [place] femoral implant with dissociation of the femoral head and trunnion. I explained to the patient this is a known complication with this implant. Unfortunately the femoral stem is not salvageable. There may be internal damage to the acetabular component.We will examine intraoperatively. We did review available treatment options which include operativeand nonoperative intervention. Based on patient's health and overall activity status I did not recommend nonoperative treatment. Operative treatment with revision of the femoral component as well as acetabular componentto a dual mobility liner was recommended. Risks and benefits of the procedure were discussed the patient including but not limited to blood loss, DVTs, possible transfusion, PEs, neurovascular damage, leg length discrepancies, dislocations, intraoperative and postoperative fractures and general risk of anesthesia including loss of life. We also discussed the potential need for an osteotomy depending on how removal of the implants proceeds. Patient demonstrates understanding his is at bedside also went over the risks and procedure with the family all parties are agreeable to proceed. Antibiotics areon-call to the operating room. Patient is currently NPO. Will proceed with surgery at this time. Patient's INR has been adequately addressed. 04/20/25 1353 Cosigner Signature (if applicable): CC: Dr. Neymar Xavier MD~ Signed [facility] Medical Records Department [address] [place] [address] Anesthesia Postop Eval I 04/20/25 1723 MR#: [id number] Acct: [id number] Name: HATTIE VALDERRAMA Rep #:[id number] : 1945 80 From: Wiliam Coats CRNA PCP: Dr. Neymar Xavier MD Status: ADM IN Y Race: C Location: [place] [address] 02-27 Anesthesia: Postop Eval I Current Vital Signs Temperature: 97.7 F Pulse Rate: 106 Blood Pressure: 125/72 Respiratory Rate: 16 Pulse Ox: 96 Oxygen Delivery Method: Room Air Assessment Airway patent: Yes Spontaneous unlabored respirations: Yes Mental status: Awake and Calm nausea: No Vomiting: No Anesthesia Complication: No Fluid Hydration Crystalloid volume administer (ml): 1,400 Total IV fluid infused: 1,400 Progress Note Anesthesia document: Postop Eval 1 completed: Yes 04/20/25 1724 y DISTRIBUTION ACCOUNTING CLERK> Date _ Wiliam Coats DISTRIBUTION ACCOUNTING CLERK Cosigner Signature: Date CC: ~ Signed [facility] Medical Records Department [address] [place] [address] Anesthesia Postop Eval II 04/20/25 1751 MR#: [id number] Acct: [id number] Name: HATTIE VALDERRAMA Rep #:[id number] : 1945 80 From: Abdiel Smith PCP: Dr. Neymar Xavier MD Status: ADM IN Y Race: C Location: [place] [address]1 Anesthesia Postop Eval I Sum Postop Eval Completion status Anesthesia document: Postop Eval 1 completed: Yes Anesthesia Postop Eval I Summary Anesthesia Postop Eval I Summary: Anesthesia Postop Eval I: Assessment Summary Airway patent Yes 04/20/25 17:24 DISTRIBUTION ACCOUNTING [email or web address] Spontaneous unlabored Yes 04/20/25 17:24 DISTRIBUTION ACCOUNTING [email or web address] respirations Mental status Awake,Calm 04/20/25 17:24 DISTRIBUTION ACCOUNTING [email or web address] nausea No 04/20/25 17:24 DISTRIBUTION ACCOUNTING [email or web address] Vomiting No 04/20/25 17:24 DISTRIBUTION ACCOUNTING [email or web address] Anesthesia Postop Eval I: Fluid Summary Crystalloid volume administer 1,400 04/20/25 17:24 DISTRIBUTION ACCOUNTING [email or web address] (ml) Colloids volume administered ( ml) Blood Product volume administered (ml) Total IV fluid infused 1,400 04/20/25 17:24 DISTRIBUTION ACCOUNTING [email or web address] Anesthesia Postop Eval I: Summary Notes Anesthesia Complication No 04/20/25 17:24 DISTRIBUTION ACCOUNTING [email or web address] Anesthesia Complication Comment: Post-operative progress note Anesthesia: Postop Eval II Evaluation Mental status: Awake Pain Level: 1 nausea: No Vomiting: No Progress Note Post-operative progress note: Doing well in PACU. Baseline vital signs. Pain controlled. Plan to return to regular nursing floor. Complications Anesthesia Complication: No 04/20/25 1752 MD> Date _ Abdiel Pittman MD Cosigner Signature: Date CC: ~ Signed [facility] Medical Records Department [address] [place] [address] Counseling Note - Pharmacy 04/21/25 1457 MR#: [id number] Acct: [id number] Name: HATTIE VALDERRAMA Rep #:[id number] : 1945 80 From: Bk Siu PCP: Dr. Neymar Xavier MD Status: ADM IN Y Location: [place] [address] Pharmacy [facility] Counseling Pharmacy Service has performed discharge medication reconciliation and counseling for this patient. The patient's discharge medication list was reviewed for discrepancies and discrepancies were resolved. The patient was counseled on the following discharge medications and changes in medications for homegoing were reviewed. The Reason for Use, instructions for use, and potential side effects were reviewed for all new medications. The patient's questions regarding all of their medications were answered. 1. Acetaminophen 1000 mg PO Q8H PRN pain 2. Oxycodone 5 mg PO Q4H PRN pain 3. Doxycycline 100 mg PO BID x 7 days 4. Aspirin 81 mg PO BID until INR > 2 The patient was able to verbally demonstrate an understanding of their dischargemedications. Medications at Discharge Home Medications atorvastatin 40 [...] 2 mg tablet 4 mg PO SUTUTHSA blood clots 05/20/22 warfarin 2 mg tablet 6 mg PO QMWF blood clots 05/20/22 amlodipine 5 mg tablet 5 mg PO DAILY high blood pressure 04/19/25 magnesium 500 mg tablet 15 mg PO DAILY for low mag 04/19/25 acetaminophen 325 mg tablet 1,000 mg (3.0769 x 325 mg) PO Q8H PRN PRN Pain 1-10 Or Fever >100.7 #0 tabs 04/21/25 aspirin 81 mg tablet,delayed release (Adult Low Dose Aspirin) 81 mg PO BIDCM lowdose #30 tabs 04/21/25 doxycycline monohydrate 100 mg capsule 100 mg PO BID #14 caps 04/21/25 oxycodone 5 mg tablet 5 mg PO Q4H PRN PRN Pain Score 4-10 3 days #12 tabs 04/21/25 04/21/25 1458 r> Date _ Bk Curtis Signature (if applicable): Date CC: ~ Signed [facility] Author Abdiel Pittman [facility] Note Date/Time April 20, 2025 2 :45pm [facility] Medical Records Department [address] [place] [address] Pre-Anesthesia Evaluation 04/20/25 1337 MR#: [id number] Acct: [id number] Name: HATTIE VALDERRAMA Misty Rep #:[id number] : 1945 80 From: Abdiel Smith PCP: Dr. Neymar Xavier MD Status: ADM IN Y Race: C Location: [place] [address] 9 ASA Classification* ASA Classification ASA Classification: 2 Assessment & Plan Anesthesia* Anesthesia Assessment Anesthesia Assessment: Discussed sedation and/or anesthesia options, risks, benefits, and alternatives with patient/parents/legal guardian/POA. Questions invited. The patient/parents/legal guardian/POA seems to understand and agrees to proceedwith anesthesia plan. Reviewed the physical assessment, medical history, allergy history and patient home medications list prior to surgery/procedure/anesthetic and documented any changes. Performed airway and anesthesia risk assessments. Anesthesia Type Anesthesia Type: General History Source History Obtained from:: Patient and Chart Anesthesia Focused Assessment* Temperature: 99.1 F Pulse Rate: 79 Blood Pressure: 126/72 Respiratory Rate: 16 Pulse Ox: 92 Oxygen Delivery Method: Room Air Airway Assessment Mouth opens: >3 cm Mallampati Score: II Teeth Condition: Missing (No upper teeth. Present few teeth lower jaw.) Neck Range of motion (ROM): Full ROM Labs Anesthesia Preop lab: CBC WBC, (4.4-11.0) 10.2 K/mm3 Today, 03:48 RBC, (4.6-6.2) 3.84 M/mm3 L Today, 03:48 Hgb, (13.0-16.5) 12.4 g/dL L Today, 03:48 Hct, (40-54) 36.2 % L Today, 03:48 Plt Count, (150-450) 243 K/mm3 Today, 03:48 CHEMISTRY Potassium, (3.3-5.1) 4.2 mmol/L Today, 03:48 Sodium, (133-145) 140 mmol/L Today, 03:48 Magnesium, (1.5-2.2) 1.7 mg/dL 09/20/24, 20:35 Phosphorus, (2.7-4.5) 2.1 mg/dL L 09/22/24, 05:53 BUN, (4-19) 15 mg/dL Today, 03:48 Creatinine, (0.70-1.20) 0.77 mg/dL Today, 03:48 Glucose, (70-99) 138 mg/dL H Today, 03:48 POC Glucose, (74-106) 143 mg/dL H Today, 12:05 TSH, (0.300-4.200) 0.328 uIU/mL 09/20/24, 21:43 COAG PT, (11.7-14.9) 19.3 SECONDS H Today, 03:48 Pre-Assessment Diagnosis/Proposed Procedure Planned Operative Procedure(s): Right hip posterior revision total hip Anesthesia History 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 When Was Last Pacemaker Check QUESTION #4 FULL TEXT: You/Your Family Experience fever (hyperthermia) with Anesthesia Last Oral Intake Last Oral intake: Last Oral Intake NPO since 23:00 04/20/25 13:07 Meds taken in AM with sips of Yes 04/20/25 13:07 water? Meds patient instructed to see med list 04/20/25 13:07 take am of surgery PONV PONV - spring winder: PONV - spring winder Female HX of Motion Sickness HX of N/V After Surgery Non-Smoker Duration of Surgery greater than 60 minutes Number of Risk Factors PONV Score Height & Weight Height & Weight: Anesthesia: Height & Weight Height 6 ft 04/20/25 13:07 Weight: 100.7 kg 04/20/25 13:07 Body Mass Index (BMI) 30.1 04/20/25 13:07 Respiratory Assessment Respiratory Assessment - spring winder: Respiratory Tract Infection Hx - spring winder Hx Respiratory Tract Infection STOP Sleep Apnea STOP Sleep Apnea - spring winder: STOP Sleep Apnea - spring winder Hx Hypertension Yes 04/19/25 13:36 Hx Sleep Apnea Yes 04/19/25 13:36 CPAP Yes 04/19/25 13:36 BIPAP No 04/19/25 13:36 Do you snore loudly (louder than talking or can be heard Do you often feel tired/ fatigued/ sleepy during daytime? Has anyone observed you stop breathing during sleep? STOP Results Positive 04/19/25 13:36 QUESTION #5 FULL TEXT : Do you snore loudly (louder than talking or can be heard through closed doors)? 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 Specify any problems Hx of Preganancy in last 3 N/A 04/19/25 13:36 Months Nurse Filling Out Transfusion KGLAZIER 04/19/25 13:36 & Questions: Date: 04/19/25 04/19/25 13:36 Time: 13:38 04/19/25 13:36 Patient unable to answer at this time (ie. confused, unrespo /Reproduction History /Reproductive History - spring winder: /Reproductive Hx- spring winder Hx Now Gestational Age (in weeks): EDC: Hx Hx Para Hx Section SAB Active Medications Active Medications: Current Medications Generic Name Dose Route Start Last Admin Trade Name Freq PRN Reason Stop Dose Admin Acetaminophen 650 mg 04/19/25 12:50 04/19/25 21:51 Acetaminophen 325 Mg Tablet PO 650 mg Q6H PRN PRN Administration Pain 1-10 Or Fever >100.7 Atorvastatin Calcium 40 mg 04/19/25 22:00 04/19/25 21:46 Atorvastatin Calcium 40 Mg Tablet PO 40 mg QHS LO Administration Glucagon 1 mg 04/19/25 12:50 Glucagon 1 Mg/Ml Syringe IM X1 PRN HYPOGLYCEMIA Protocol Guaifenesin 1,200 mg 04/20/25 22:00 Guaifenesin 1,200 Mg Tablet PO BID LO Dextrose 250 mls @ 0 mls/hr 04/19/25 12:50 Dextrose 10%-Water IV .Q0M PRN HYPOGLYCEMIA Protocol As Directed Sodium Chloride 250 mls @ 15 mls/hr 04/19/25 13:36 IV .[id number] PRN Saline Flush Sodium Chloride 250 mls @ 15 mls/hr 04/19/25 13:36 IV .[id number] PRN Additional IVPB Infusion Sodium Chloride 250 mls @ 15 mls/hr 04/20/25 10:02 IV .[id number] PRN Saline Flush Sodium Chloride 250 mls @ 15 mls/hr 04/20/25 10:02 IV .[id number] PRN Additional IVPB Infusion Lactated Ringer's 1,000 mls @ 15 mls/hr 04/20/25 13:00 04/20/25 13:14 IV 15 mls/hr .Q48H LO Administration Insulin Human Lispro 0 unit 04/19/25 16:00 04/20/25 12:53 Insulin Lispro 100 Unit/Ml Insuln.Pen SC Not Given ACHS LO Protocol Losartan Potassium 100 mg 04/20/25 10:00 04/20/25 08:25 Losartan Potassium 100 Mg Tablet PO 100 mg DAILY LO Administration Protocol Metformin HCl 1,000 mg 04/20/25 08:00 04/20/25 08:28 Metformin Hcl 1,000 Mg Tablet PO Not Given BIDCM LO Metoprolol Succinate 100 mg 04/20/25 10:00 04/20/25 08:25 Metoprolol(Xl)Succ 100 Mg Tablet PO 100 mg DAILY LO Administration Protocol Morphine Sulfate 2 - 4 mg 04/19/25 12:50 04/20/25 03:58 Morphine 2 Mg/Ml Syringe IV 2 mg Q3H PRN PRN Administration Pain Score 6-10 Ondansetron HCl 4 mg 04/19/25 12:50 Ondansetron 4 Mg/2 Ml Vial IV Q8H PRN PRN NAUSEA/VOMITING Oxycodone HCl 5 mg 04/19/25 12:50 04/19/25 21:51 Oxycodone 5 Mg Tablet PO 5 mg Q4H PRN PRN Administration Pain Score 4-10 Senna/Docusate Sodium 2 tablet 04/19/25 22:00 04/20/25 08:25 Senna/Docusate Sodium 1 Tablet PO Not Given BID LO Sodium Chloride 10 - 40 ml 04/19/25 13:36 04/20/25 03:58 0.9% Saline Lock 10 Ml Syringe IV 10 ml UD PRN Administration SALINE FLUSH Sodium Chloride 10 - 40 ml 04/20/25 10:02 0.9% Saline Lock 10 Ml Syringe IV UD PRN SALINE FLUSH PFSH Medical History Overweight (BMI 25.0-29.9) Kidney stones Diabetes Atrial fibrillation Hypertension Home Medications ?Medication ?Instructions ?Recorded ?Last Taken ?Type atorvastatin 40 mg tablet 40 mg PO QHS CHOLESTEROL 04/18/25 History glimepiride 2 mg tablet 2 mg PO DAILY DIABETES 05/2004/18/25 History losartan 50 mg tablet 100 mg PO DAILY BLOOD PRESSU RE 05/20/22 04/18/25 History metformin 500 mg tablet 1,000 mg PO BID DIABETES 04/19/25 History metoprolol succinate 100 mg 100 mg PO DAILY BLOOD PRES SURE AND 05/20/22 04/19/25 History tablet,extended release 24 hr HEART RATE warfarin 2 mg tablet 4 mg PO SUTUTHSA blood clots 05/20/22 04/18/25 History warfarin 2 mg tablet 6 mg PO QMWF blood clots 04/17/25 History amlodipine 5 mg tablet 5 mg PO DAILY high blood pre ssure 04/19/25 04/18/25 History aspirin 81 mg tablet,delayed 81 mg PO DAILY low dose 1 04/18/25 History release (Adult Low Dose Aspirin) magnesium 500 mg tablet 15 mg PO DAILY for low mag 1 04/18/25 History Allergy/AdvReac Type Severity Reaction Status Date / Time No Known Allergies Allergy Verified 04/20/25 13:06 Family History Other Heart disease Surgical History History of hip replacement History of knee replacement Social History Smoking Status: Former smoker Review of Systems (Anesthesia) ROS Narrative System reviewed and no additional complaints, except as documented. 04/20/25 [id number] <Electronically signed by Abdiel Pittman MD> Date _ Abdiel Pittman MD [facility] Signature: Date CC: ~ Signed [facility] Work Phone: Consult note Author Hugo Bradley [facility] Note Date/Time April 20, 2025 2 :53pm [facility] Medical Records Department [address] [facility] [facility] [place] [address] Consultation - Orthopedics 04/20/25 1339 MR#: [id number] Acct: [id number] Name: HATTIE VALDERRAMA Rep #:[id number] : 1945 80 From: Hugo Smith PCP: Dr. Neymar Xavier MD Status: ADM IN Location: [facility] [id number] HPI Consult Data Date of Consult: 04/20/25 HPI Narrative Reason for Consultation: Right hip pain HPI Narrative: HATTIE VALDERRAMA, is a 80 M who presents today with right hip pain and an inability to bear weight on the right lower extremity. Patient has a history of a right total replacement done in 2006 at an outside facility. Patient reports no complications with the surgery. He said no issues with the with the surgery andno antecedent pain leading up to yesterday's events. Patient notes he has not followed up with his operating surgeon and quite some time. Patient reports 10 out of 10 pain today worse with motion better with immobilization. Patient'julia is located in the groin and thigh on the right. 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 He fell to the ground and was unable to bear weight at that time. 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 Denies any associated numbness and tingling. Patient does take Coumadin for hisatrial fibrillation. On his admission patient had INR of 2.7 which has been reversed to 1.6. Patient does have diabetes and his current hemoglobin A1c is 6.7 PFS Medical History Overweight (BMI 25.0-29.9) Kidney stones Diabetes Atrial fibrillation Hypertension Home Medications ?Medication ?Instructions ?Recorded ?Last Taken ?Type atorvastatin 40 mg tablet 40 mg PO QHS CHOLESTEROL 04/18/25 History glimepiride 2 mg tablet 2 mg PO DAILY DIABETES 05/2004/18/25 History losartan 50 mg tablet 100 mg PO DAILY BLOOD PRESSU RE 05/20/22 04/18/25 History metformin 500 mg tablet 1,000 mg PO BID DIABETES 04/19/25 History metoprolol succinate 100 mg 100 mg PO DAILY BLOOD PRES SURE AND 05/20/22 04/19/25 History tablet,extended release 24 hr HEART RATE warfarin 2 mg tablet 4 mg PO SUTUTHSA blood clots 05/20/22 04/18/25 History warfarin 2 mg tablet 6 mg PO QMWF blood clots 04/17/25 History amlodipine 5 mg tablet 5 mg PO DAILY high blood pre ssure 04/19/25 04/18/25 History aspirin 81 mg tablet,delayed 81 mg PO DAILY low dose 1 04/18/25 History release (Adult Low Dose Aspirin) magnesium 500 mg tablet 15 mg PO DAILY for low mag 1 04/18/25 History Allergy/AdvReac Type Severity Reaction Status Date / Time No Known Allergies Allergy Verified 04/20/25 13:06 Family History Other Heart disease Surgical History History of hip replacement History of knee replacement Social History Smoking Status: Former smoker ROS ROS Narrative 14 point review systems outside of what is mentioned in the HPI is negative. Vital Signs Vital Signs Vital Signs: 04/19/25 13:55 04/19/25 13:59 04/19/25 17:31 Temperature 97.7 F L 98.7 F Temperature Source Oral Oral Pulse Rate 76 90 Pulse Strength Respiratory Rate 16 16 Respiratory Effort Non-Labored Respiratory Depth Normal Respiratory Pattern Normal Blood Pressure 108/74 131/73 H Blood Pressure Mean 85 92 Blood Pressure Source Monitor Blood Pressure Position Supine Blood Pressure Location Pulse Ox 94 94 Oxygen Delivery Method Room Air Room Air Room Air 04/19/25 19:38 04/19/25 19:53 04/19/25 21:42 Temperature 98.4 F Temperature Source Oral Pulse Rate 107 H Pulse Strength Normal (2+) Respiratory Rate 19 H Respiratory Effort Non-Labored Respiratory Depth Normal Respiratory Pattern Normal Blood Pressure 134/91 H Blood Pressure Mean 105 Blood Pressure Source Monitor Blood Pressure Position Supine Blood Pressure Location Right Arm Pulse Ox 100 Oxygen Delivery Method Room Air Room Air 04/20/25 03:00 04/20/25 03:56 04/20/25 04:26 Temperature 98.0 F Temperature Source Oral Pulse Rate 86 86 Pulse Strength Respiratory Rate 19 H Respiratory Effort Non-Labored Respiratory Depth Normal Respiratory Pattern Normal Blood Pressure 119/66 Blood Pressure Mean 83 Blood Pressure Source Blood Pressure Position Blood Pressure Location Pulse Ox 93 Oxygen Delivery Method Room Air Room Air 04/20/25 08:16 04/20/25 08:22 04/20/25 08:25 Temperature 98.2 F Temperature Source Oral Pulse Rate 93 93 Pulse Strength Respiratory Rate 18 Respiratory Effort Non-Labored Respiratory Depth Normal Respiratory Pattern Normal Blood Pressure 111/75 Blood Pressure Mean 87 Blood Pressure Source Blood Pressure Position Blood Pressure Location Pulse Ox 91 Oxygen Delivery Method Room Air Room Air 04/20/25 13:07 Temperature 99.1 F Temperature Source Temporal Pulse Rate 79 Pulse Strength Respiratory Rate 16 Respiratory Effort Respiratory Depth Respiratory Pattern Blood Pressure 126/72 H Blood Pressure Mean 90 Blood Pressure Source Monitor Blood Pressure Position Supine Blood Pressure Location Left Arm Pulse Ox 92 Oxygen Delivery Method Room Air Weight Weight: 222 lb 0.088 oz Body Mass Index (BMI) 30.1 Physical Exam Const alert and oriented x3 General Appearance: cooperative HEENT normocephalic, head/scalp atraumatic and dentition normal Eyes PERRL Neck no JVD Resp normal respiratory effort Cardio Cardio Narrative: Irregular distal pulses GI non-distended Extremity Extremity Narrative: Right lower extremity: Previous incision is clean dry and intact. Leg is shortened and externally rotated. Thigh is without significant swelling. Tenderness palpate around the thigh. No redness of the incision. Neurovasc intact distally with positive dorsiflexion EHL plantarflexion. Strength testingdeferred secondary to pain. Positive sensation saphenous, sural, superficial peroneal, deep peroneal and tibial nerve distributions distally. Palpable DP pulses. Skin Skin Narrative: Previous incision is clean dry and intact Neuro CN's II-XII intact bilaterally Gait (Neuro): Negative for normal gait Psych affect normal Medical Records Data Attestation: I reviewed the patient's medical records Lab / Micro Data 04/20/25 03:48 04/20/25 03:48 Labs: Laboratory Results - last 24 hr 04/19/25 09:50: Total Bilirubin 0.59, Direct Bilirubin 0.28, AST 20, ALT 18, Alkaline Phosphatase 65, Total Protein 6.9, Albumin 4.1, Globulin 2.8, Vitamin D25- Hydroxy 39.5 04/19/25 14:36: PT 28.7 H, INR 2.6 04/19/25 17:23: POC Glucose 151 H 04/19/25 21:57: POC Glucose 122 H 04/20/25 03:48: WBC 10.2, RBC 3.84 L, Hgb 12.4 L, Hct 36.2 L, MCV 94.3 H, MCH 32.3 H, MCHC 34.3, RDW Std Deviation 46.4 H, RDW Coeff of Risa 13.4, Plt Count 243, MPV 10.9, Immature Gran % (Auto) 0.200, Neut % (Auto) 69.5, Lymph % (Auto) 19.0, Mora % (Auto) 9.7, Eos % (Auto) 1.2, Baso % (Auto) 0.4, Absolute Neuts (auto) 7.1, Absolute Lymphs (auto) 1.94, Nucleated RBC % 0, PT 19.3 H, INR 1.6, Sodium 140, Potassium 4.2, Chloride 104, Carbon Dioxide 25.0, Anion Gap 11, BUN 15, Creatinine 0.77, Estim Creat Clear Calc 92.98, Est GFR (MDRD) Non-Af 91, BUN/Creatinine Ratio 19.2, Glucose 138 H, Hemoglobin A1c 6.7 H, Calcium 9.1, Blood Type O POSITIVE, Antibody Screen NEGATIVE 04/20/25 07:02: POC Glucose 131 H 04/20/25 12:05: POC Glucose 143 H Imaging Right hip films were reviewed. Patient has previous right total replacement with dissociation of femoral head and femoral component trunnion. Acetabular component appears to be appropriately aligned. There is erosion of the femoral trunnion. There is osteolysis in the greater trochanteric area of the femur with hypodense radiograph material likely consistent with metallic debris. Patient does have a history of questionable lytic bone lesion on previous CT scan. I did review it appears to be a periarticular cyst in relation to his osteoarthritis. Repeat CT scan did not show further concerns. Assessment & Plan Assessment/Plan (1) Prosthetic hip implant failure: PLAN: Patient has a previous Accolade 1 Hazel femoral implant with dissociation of the femoral head and trunnion. I explained to the patient this is a known complication with this implant. Unfortunately the femoral stem is not salvageable. There may be internal damage to the acetabular component. We will examine intraoperatively. We did review available treatment options which include operative and nonoperative intervention. Based on patient's health and overall activity status I did not recommend nonoperative treatment. Operative treatment with revision of the femoral component as well as acetabular componentto a dual mobility liner was recommended. Risks and benefits of the procedure were discussed the patient including but not limited to blood loss, DVTs, possible transfusion, PEs, neurovascular damage, leg length discrepancies, dislocations, intraoperative and postoperative fractures and general risk of anesthesia including loss of life. We also discussed the potential need for an osteotomy depending on how removal of the implants proceeds. Patient demonstrates understanding his is at bedside also went over the risks and procedure with the family all parties are agreeable to proceed. Antibiotics areon-call to the operating room. Patient is currently NPO. Will proceed with surgery at this time. Patient's INR has been adequately addressed. 04/20/25 1353 <Electronically signed by Hugo Bradley MD> Cosigner Signature (if applicable): CC: Dr. Neymar Xavier MD~ Signed [facility] Work Phone: Consult note Author Wiliam Coats [facility] Note Date/Time April 20, 2025 6 :24pm [facility] Medical Records Department [address] [place] [address] Anesthesia Postop Eval I 04/20/25 1723 MR#: [id number] Acct: [id number] Name: HATTIE VALDERRAMA Rep #:[id number] : 1945 80 From: Wiliam Coats CRNA PCP: Dr. Neymar Xavier MD Status: ADM IN Y Race: C Location: [place] [address] 02-27 Anesthesia: Postop Eval I Current Vital Signs Temperature: 97.7 F Pulse Rate: 106 Blood Pressure: 125/72 Respiratory Rate: 16 Pulse Ox: 96 Oxygen Delivery Method: Room Air Assessment Airway patent: Yes Spontaneous unlabored respirations: Yes Mental status: Awake and Calm nausea: No Vomiting: No Anesthesia Complication: No Fluid Hydration Crystalloid volume administer (ml): 1,400 Total IV fluid infused: 1,400 Progress Note Anesthesia document: Postop Eval 1 completed: Yes 04/20/251723 <Electronically signed by Wiliam avina CRNA> Date _ Wiliam Coats CRNA Cosigner Signature: Date CC: ~ Signed [facility] Work Phone: Consult note Author Abdiel [facility] Note Date/Time April 20, 2025 6 :52pm [facility] Medical Records Department [address] [place] [id number] Anesthesia Postop Eval II 04/20/25 1751 MR#: [id number] Acct: [id number] Name: YAZMINHATTIE HDZ Misty Rep #:[id number] : 1945 80 From: Abdiel Smith PCP: Dr. Neymar Xavier MD Status: ADM IN Y Race: C Location: [place] [id number] Anesthesia Postop Eval I Sum Postop Eval Completion status Anesthesia document: Postop Eval 1 completed: Yes Anesthesia Postop Eval I Summary Anesthesia Postop Eval I Summary: Anesthesia Postop Eval I: Assessment Summary Airway patent Yes 04/20/25 17:24 DISTRIBUTION ACCOUNTING [email or web address] Spontaneous unlabored Yes 04/20/25 17:24 DISTRIBUTION ACCOUNTING [email or web address] respirations Mental status Awake,Calm 04/20/25 17:24 DISTRIBUTION ACCOUNTING [email or web address] nausea No 04/20/25 17:24 DISTRIBUTION ACCOUNTING [email or web address] Vomiting No 04/20/25 17:24 DISTRIBUTION ACCOUNTING [email or web address] Anesthesia Postop Eval I: Fluid Summary Crystalloid volume administer 1,400 04/20/25 17:24 DISTRIBUTION ACCOUNTING [email or web address] (ml) Colloids volume administered ( ml) Blood Product volume administered (ml) Total IV fluid infused 1,400 04/20/25 17:24 DISTRIBUTION ACCOUNTING [email or web address] Anesthesia Postop Eval I: Summary Notes Anesthesia Complication No 04/20/25 17:24 DISTRIBUTION ACCOUNTING [email or web address] Anesthesia Complication Comment: Post-operative progress note Anesthesia: Postop Eval II Evaluation Mental status: Awake Pain Level: 1 nausea: No Vomiting: No Progress Note Post-operative progress note: Doing well in PACU. Baseline vital signs. Pain controlled. Plan to return to regular nursing floor. Complications Anesthesia Complication: No 04/20/25 250 <Electronically signed by Abdiel Pittman MD> Date _ [facility] Signature: Date CC: ~ Signed [facility] Work Phone: Consult note Author Bk Siu [facility] Note Date/Time April 21, 2025 3 :58pm [facility] Medical Records Department [address] [place] [address] Counseling Note - Pharmacy 04/21/25 1457 MR#: [id number] Acct: [id number] Name: HATTIE VALDERRAMA Misty Rep #:[id number] : 1945 80 From: Bk Siu PCP: Dr. Neymar Xavier MD Status: ADM IN Y Location: [facility] [id number] Pharmacy [facility] Counseling Pharmacy Service has performed discharge medication reconciliation and counseling for this patient. The patient's discharge medication list was reviewed for discrepancies and discrepancies were resolved. The patient was counseled on the following discharge medications and changes in medications for homegoing were reviewed. The Reason for Use, instructions for use, and potential side effects were reviewed for all new medications. The patient's questions regarding all of their medications were answered. 1. Acetaminophen 1000 mg PO Q8H PRN pain 2. Oxycodone 5 mg PO Q4H PRN pain 3. Doxycycline 100 mg PO BID x 7 days 4. Aspirin 81 mg PO BID until INR > 2 The patient was able to verbally demonstrate an understanding of their dischargemedications. Medications at Discharge Home Medications atorvastatin 40 [...] 2 mg tablet 4 mg PO SUTUTHSA blood clots 05/20/22 warfarin 2 mg tablet 6 mg PO QMWF blood clots 05/20/22 amlodipine 5 mg tablet 5 mg PO DAILY high blood pressure 04/19/25 magnesium 500 mg tablet 15 mg PO DAILY for low mag 04/19/25 acetaminophen 325 mg tablet 1,000 mg (3.0769 x 325 mg) PO Q8H PRN PRN Pain 1-10 Or Fever >100.7 #0 tabs 04/21/25 aspirin 81 mg tablet,delayed release (Adult Low Dose Aspirin) 81 mg PO BIDCM lowdose #30 tabs 04/21/25 doxycycline monohydrate 100 mg capsule 100 mg PO BID #14 caps 04/21/25 oxycodone 5 mg tablet 5 mg PO Q4H PRN PRN Pain Score 4-10 3 days #12 tabs 04/21/25 04/21/25 5978 <Electronically signed by Bk castellon> Date _ Bk Siu Cosigner Signature (if applicable): Date CC: ~ Signed [facility] Work Phone: Discharge summary [facility] Medical Records Department [address] [place] [address] Discharge Summary 04/21/25 1157 MR#: [id number] Acct: [id number] Name: HATTIE VALDERRAMA Rep #:[id number] : 1945 80 From: Marcelino Gracia DO PCP: Dr. Neymar Xavier MD Status: ADM IN [facility] Providers Date of Admission: 04/19/25 Primary Care Physician: Dr. 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 Pt underwent revision both components right total hip replacement (2) Coagulopathy: Status: Acute Code(s): D68.9 - Coagulation defect, unspecified Plan: Iatrogenic (appropriately so). Resolved after vitamin K. Now, post surgery, pt to resume his warfarin. (3) Lytic bone lesions on xray: Status: Acute Code(s): M89.8X9 - Other specified disorders of bone, unspecified site Plan: Noted on chest CT from September 20 of this year in his right scapula. Patient had a CAT scan of his chest abdomen pelvis the next day on the that showed no report of that lytic lesion and no metastatic focus or anything in that nature. It was instructed the patient follow-up with further imaging in6 months time but patient never did so. Will order CT of the chest without contrast. Discussed with machine packaging technician that CAT scan without contrast center looking at the lytic lesion would be fine. Plan Diabetes mellitus type 2: Continue with glimepiride and metformin postsurgery. Atrial fibrillation: Resume warfarin and continue metoprolol VTE prophylaxis restart warfarin. Since INR is subtherapuetic given the vitamin K, we will utilize twice daily aspirin until INR is therapeutic CODE STATUS: Addressed with the patient. Patient wishes to be full code. Medications at Discharge Home Medications atorvastatin 40 [...] 2 mg tablet 4 mg PO SUTUTHSA blood clots 05/20/22 warfarin 2 mg tablet 6 mg PO QMWF blood clots 05/20/22 amlodipine 5 mg tablet 5 mg PO DAILY high blood pressure 04/19/25 magnesium 500 mg tablet 15 mg PO DAILY for low mag 04/19/25 acetaminophen 325 mg tablet 1,000 mg (3.0769 x 325 mg) PO Q8H PRN PRN Pain 1-10 Or Fever >100.7 #0 tabs 04/21/25 aspirin 81 mg tablet,delayed release (Adult Low Dose Aspirin) 81 mg PO BIDCM lowdose #30 tabs 04/21/25 doxycycline monohydrate 100 mg capsule 100 mg PO BID #14 caps 04/21/25 oxycodone 5 mg tablet 5 mg PO Q4H PRN PRN Pain Score 4-10 3 days #12 tabs 04/21/25 Hospital Course Operations - (Revision both components right total hip replacement) Summary of Care Provided Hospital Course: This is a patient that was standing and felt his right leg gave out. He was able to catch himself and did not fall. Patient was found to have a broken proximal right hip prosthesis. Patient underwenta revision on the after reversal of his INR. Patient has done very well with therapy. His situation isnot typical of revision of hip replacements as it was not a fall that broke but appearing cyndy the device itself that had failed. Patient is doing very well with therapy. Patient was seen in August and operative his workup noted a lytic lesion in his right scapula. He did not ever seek follow-up but we did do a follow-up CAT scan this admission that showed a stable lucent lesion within theright scapula and in the inferior glenoid region. Unchanged. Do recommend 6-month follow-up. This ve ry well may be benign lesion. Since patient's INR was reversed it is down to 1.1. Patient takes warfarin for atrial fibrillation. Hewill resume his warfarin and then be on aspirin 81 mg twice daily until his INR is therapeutic. Discussed with orthopedic service, patient is to be on doxycycline 100 twice daily for 2 weeks given this revision. Weight / BMI Weight Weight: 100.7 kg Body Mass Index (BMI) 30.1 ABG / Lab / Microbiology Data 04/21/25 04:42 04/21/25 04:42 Laboratory: Laboratory Results - last 24 hr 04/20/25 12:05: POC Glucose 143 H 04/20/25 21:53: POC Glucose 188 H 04/21/25 04:42: WBC 16.6 H, RBC 3.84 L, Hgb 12.1 L, Hct 35.7 L, MCV 93.0, MCH 31.5, MCHC 33.9, RDW Std Deviation 45.3 H, RDW Coeff of Risa 13.3, Plt Count 251,MPV 11.2, Immature Gran % (Auto) 0.400, Neut % (Auto) 87.2 H, Lymph % (Auto) 5.1L, Mora % (Auto) 7.2, Eos % (Auto) 0.0, Baso % (Auto) 0.1, Absolute Neuts (auto)14.5 H, Absolute Lymphs (auto) 0.84, Nucleated RBC % 0, PT 14.5, INR 1.1, [id number], Potassium 4.6, Chloride 98, Carbon Dioxide 22.6, Anion Gap 14, BUN 18, Creatinine 0.87, Estim Creat Clear Calc 84.57, Est GFR (MDRD) Non-Af 88, BUN/Creatinine Ratio 21.2 H, Glucose 198 H, Calcium 8.6 04/21/25 06:40: POC Glucose 221 H Radiography Diagnostic Testing: Radiology Impression Hip X-Ray 04/20/25 17:40 IMPRESSION: Intact right hip arthroplasty. Left hip osteoarthrosis. Reading Location: [address] 04/21/25 08:38 IMPRESSION: Coronary artery calcification (CAC) is is present Stable lucent lesion within the right scapula in the inferior glenoid region. It is unchanged in size or appearance compared to the previous study. There is no expansion through the cortical surface. The inner border of the lesion is also free of erosive or irregular changes. I suspect this is a benign lesion but another six-month follow-up could be performed for stability Mild interstitial edema with small pleural effusions and bibasilar atelectasis. Findings are consistent with pulmonary vascular congestion. Follow-up recommended to ensure complete resolution No suspicious adenopathy Degenerative bony changes Reading Location: [id number] D/C Instructions DC O2, CPAP, BIPAP Needs Home O2 Discharge instructions: No Meaningful Use Info Meaningful Use Meaningful Use Diagnoses (Choose all that apply): None applicable Discharge Plan Admission Admit Date/Time: 04/19/25 11:26 Primary Reason for Your Visit: Right hip prosthetic fracture Attending Provider: Marcelino Gracia Primary Care Provider: Neymar Xavier Consulting Providers: Hugo Bradley Instructions Additional Instructions / Restrictions: CAT scan back in August and again this month showed an area on your shoulder blade (scapula) this may be benign but is recommend that you have this followed up in 6 months to see if there is any changes. Thus far things appear unchanged. Weightbearing as tolerated right lower extremity. Discharge Orders/Prescriptions Prescriptions: New acetaminophen 325 mg Tablet 1,000 mg PO Q8H PRN PRN (Reason: Pain 1-10 Or Fever >100.7) Qty: 0 0RF oxycodone 5 mg Tablet 5 mg PO Q4H PRN PRN (Reason: Pain Score 4-10) 3 Days Qty: 12 0RF doxycycline monohydrate 100 mg capsule 100 mg PO BID Qty: 14 0RF Continued losartan 50 mg tablet 100 [...] 2 mg Tablet 4 mg PO SUTUTHSA magnesium 500 mg tablet 15 mg PO DAILY amlodipine 5 mg tablet 5 mg PO DAILY Changed aspirin [Adult Low Dose Aspirin] 81 mg tablet,delayed release (DR/EC) 81 mg PO BIDCM Qty: 30 0RF Rx Instructions: Take twice daily until your INR is between 2 and 3. Then resume daily dosing. Referrals / Follow Up: Neymar Xavier MD [Primary Care Provider, Medical] - Within 2 Weeks Hugo Bradley MD [Med Staff - Active Staff, Orthopedics] - Within 2 Weeks Disposition Disposition (needs filled in before D/C Order can be placed): Home Health Service Charges/Coding Visit Charges Inpatient E&M: 55995 Disch Hosp >30min 04/21/25 1214 Cosigner Signature (if applicable): CC: Dr. Marcelino Gracia DO; Dr. Neymar Xavier MD~ Signed [facility] Jaydon Barney [facility] Note Date/Time April 19, 2025 1 2:30pm [facility] Medical Records Department [address] [place] [address] Emergency Department Summary 04/19/25 MR#: [id number] Acct: [id number] Name: HATTIE VALDERRAMA Rep #:[id number] : 1945 80 From: Jaydon Barney MD PCP: Dr. Neymar Xavier MD Status: REG ER Location: ED ADDENDUM by Dr. Jaydon Barney MD on 04/19/25 at 1130 Single view chest x-ray reveals cardiomegaly. Cardiac silhouette seen. There is no evidence of failure, infiltrate or effusion. Osseous structures reveal noacute abnormality. This independently reviewed by [place] 04/19/25 1130<Electronically signed by Jaydon Barney MD> Cosigner Signature (if applicable): cc: Dr. Neymar Xavier MD ~* Signed HPI History of Present Illness Chief Complaint: Lower Extremity Injury Detail of Chief Complaint: Complains of right hip pain which he points to the greater trochanteric reg Informant: patient Onset/Context/Timing Onset: Hours Context: Sudden Onset Timing: Continuous Quality: Pain Location: Right hip region Current Severity: Mild Maximum Severity: Moderate Worsened by: Movement Relieved by: Nothing Associated Symptoms Associated Symptoms: Unable to bear weight Narrative Narrative: Patient is a 80-year-old male. He has history of right total hip arthroplasty. He states he was standing pivoted and felt a pop and experienced severe pain which he locates to the greater trochanteric region. He arrived by ambulance. He was unable to bear weight afterwards. He denies paresthesia, anesthesia or motor weakness. He has history of type 2 diabetes, hypercholesterolemia, hypertension and is on anticoagulant. Prior similar symptoms: No Recent Illness/[facility], [facility] Medical History Overweight (BMI 25.0-29.9) Kidney stones Diabetes Atrial fibrillation Hypertension Home [...] mg PO QMWF 05/20/22 Unknow n History guaifenesin 1,200 mg tablet, 1,200 mg PO BID #10 tabs 09/22/24 Unknown Rx extended release 12 hr (Mucus Relief ER) levofloxacin 750 mg tablet 750 mg PO DAILY #4 tabs Unknown Rx oseltamivir 30 mg capsule 30 mg PO BID #6 caps 5 Unknown Rx prednisone 20 mg tablet 40 mg (2 x 20 mg) PO DAILY # 10 tabs 09/22/24 Unknown Rx Allergy/AdvReac Type Severity Reaction Status Date / Time No Known Allergies Allergy Verified 09/20/24 17:36 Surgical History History of hip replacement History of knee replacement Social History Smoking Status: Former smoker ROS ROS ED Constitutional Constitutional ED: Denies chills, fever(s) or subjective Cardiovascular Cardiovascular: Denies chest pain or palpitations Respiratory/Chest Respiratory/Chest: Denies cough or dyspnea Gastrointestinal Gastrointestinal: Denies nausea or vomiting Musculoskeletal Musculoskeletal: Reports other Details: Right hip pain EXAM Physical Exam Const Vital Signs: 04/19/25 08:20 Temperature 97.7 F L Temperature Source Oral Pulse Rate 94 Respiratory Rate 18 Blood Pressure 125/80 H Blood Pressure Mean 95 Pulse Ox 98 Positive well nourished and well developed Constitutional Narrative: Patient appears slightly uncomfortable. The right lower extremity is shortened compared to the left. General Appearance ED: well developed; Negative for pallor HEENT Reports moist mucous membranes HEENT Narrative: HEENT is grossly unremarkable with no evidence of trauma Eyes PERRL and EOMs intact bilaterally General Eye ED: Negative for pale conjunctiva or scleral icterus Resp normal respiratory effort and clear to auscultation bilaterally Cardio regular rate, regular rhythm, S1 normal heart sound, S2 normal heart sound and no murmurs GI normal to inspection, nondistended, normoactive bowel sounds, non-tender and non-distended Extremity Extremity Narrative: There is shortening of the right leg. He is unable to lift his leg up off the bed. He has no pain to palpation in the inguinal area. There is pain ovation over the greater trochanteric region. There is no evidence of bruising or trauma to the hip area. There is no pain ovation over the pubic symphysis, right ischial tuberosity or right ilium. Neuro oriented x3 and CN's II-XII intact bilaterally Sensorium / Orientation: alert Psych mental status grossly normal Skin no rashes or lesions noted, no wounds and No skin turgor normal General Skin Exam: Negative for jaundice or pallor MDM MDM MDM Narrative Medical decision making narrative: Patient last ate at 6 AM. He was made NPO. IV was established. He was treatedwith pain medicine. X-ray was obtained to determine if patient has a dislocatedprosthesis versus a periprosthetic fracture. Lab Data Labs: Laboratory Results - last 24 hr 04/19/25 09:50 WBC 7.5 RBC 3.89 L Hgb 12.1 L Hct 36.9 L MCV 94.9 H MCH 31.1 MCHC 32.8 RDW Std Deviation 47.1 H RDW Coeff of Risa 13.6 Plt Count 241 MPV 10.4 Immature Gran % (Auto) 0.500 Neut % (Auto) 73.8 H Lymph % (Auto) 15.7 L Mora % (Auto) 8.1 Eos % (Auto) 1.2 Baso % (Auto) 0.7 Absolute Neuts (auto) 5.5 Absolute Lymphs (auto) 1.18 Nucleated RBC % 0 PT 29.2 H INR 2.7 Sodium 140 Potassium 4.3 Chloride 103 Carbon Dioxide 29.6 Anion Gap 7 BUN 16 Creatinine 0.87 Estim Creat Clear Calc 86.79 Est GFR (MDRD) Non-Af 88 BUN/Creatinine Ratio 18.3 Glucose 221 H Calcium 9.2 Radiography Chest X-Ray - ED: Read by ED Physician (Three-view x-ray reveals a fracture of the femoral neck of the prosthetic component. This would explain the shorteningof his leg. No other abnormalities noted.) Diagnostic Testing: Clinical Impression(s) from Imaging Studies Hip/Pelvis X-Ray 04/19/25 08:23 IMPRESSION: Transverse cervical fracture of the prosthetic component of the right total hip with cephalic migration of the distal fracture fragment. Reading Location: [facility] Chest X-Ray 04/19/25 09:39 IMPRESSION: There is cardiomegaly without overt CHF. Reading [facility] Initial EKG: Attestation: I personally reviewed and interpreted this EKG as follows: Interpretation: Atrial Fibrillation (Rate is 96. There is a right bundle branch block. QRS duration 128 ms. QT duration 180 ms. [place] is normal there is no acute ischemic changes per) Management Discussion w/another healthcare provider: Hospitalist (Case was discussed with hospitalist, Dr. Marcelino Hope. He is aware that Dr. Bradley needs to do the case tomorrow. 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 Dilan Zurita who is on-call for orthopedics no doc. He informing that he does not do revisions. Will contact other group to see if anyone is available to fix this otherwise patient will require transfer.) Treatment and Re-Evaluation :: Case discussed Dr. Canada presents patient's INR is not significantly out of control will contact hospitalist for admission. 5 mg of vitamin K orally was ordered to start reversal since he will need to be operated on tomorrow by Dr. Bradley. He is on Coumadin for atrial fibrillation. Discharge Plan Dx/Rx/DC Orders Clinical Impression: Prosthetic hip implant failure, Atrial fibrillation, Anticoagulant long-term use, Anemia due to chronic illness, Hyperglycemia due to type 2 diabetes mellitus, History of hypertension Disposition Disposition: Acute Care Hospital [facility] What to do if you have Problems For any increased pain, shortness of breath, bleeding, nausea or vomiting, chestpain, or any unexpected problems, contact your Primary Care Provider. Call [facility] ([phone]) or report to the closest Emergency Room. Call 911 if necessary. 04/19/25 1129 <Electronically signed by Jaydon Barney MD> Cosigner Signature (if applicable): CC: Dr. Neymar Xavier MD ~ Signed [facility] Work Phone: Discharge summary Author Marcelino Gracia [facility] Note Date/Time April 21, 2025 1 :14pm [facility] Medical Records Department [address] [place] [id number] Discharge Summary 04/21/25 1157 MR#: [id number] Acct: [id number] Name: YAZMINANDREINAHATTIE Misty Rep #:[id number] : 1945 80 From: Marcelino Gracia DO PCP: Dr. Neymar Xavier MD Status: ADM IN Location: [place] [id number] Providers Date of Admission: 04/19/25 Primary Care Physician: Dr. 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 Pt underwent revision both components right total hip replacement (2) Coagulopathy: Status: Acute Code(s): D68.9 - Coagulation defect, unspecified Plan: Iatrogenic (appropriately so). Resolved after vitamin K. Now, post surgery, pt to resume his warfarin. (3) Lytic bone lesions on xray: Status: Acute Code(s): M89.8X9 - Other specified disorders of bone, unspecified site Plan: Noted on chest CT from September 20 of this year in his right scapula. Patient had a CAT scan of his chest abdomen pelvis the next day on the that showed no report of that lytic lesion and no metastatic focus or anything in that nature. It was instructed the patient follow-up with further imaging in 6 months time but patient never did so. Will order CT of the chest without contrast. Discussed with machine packaging technician that CAT scan without contrast center looking at the lytic lesion would be fine. Plan Diabetes mellitus type 2: Continue with glimepiride and metformin postsurgery. Atrial fibrillation: Resume warfarin and continue metoprolol VTE prophylaxis restart warfarin. Since INR is subtherapuetic given the vitamin K, we will utilize twice daily aspirin until INR is therapeutic CODE STATUS: Addressed with the patient. Patient wishes to be full code. Medications at Discharge Home Medications atorvastatin 40 [...] 2 mg tablet 4 mg PO SUTUTHSA blood clots 05/20/22 warfarin 2 mg tablet 6 mg PO QMWF blood clots 05/20/22 amlodipine 5 mg tablet 5 mg PO DAILY high blood pressure 04/19/25 magnesium 500 mg tablet 15 mg PO DAILY for low mag 04/19/25 acetaminophen 325 mg tablet 1,000 mg (3.0769 x 325 mg) PO Q8H PRN PRN Pain 1-10 Or Fever >100.7 #0 tabs 04/21/25 aspirin 81 mg tablet,delayed release (Adult Low Dose Aspirin) 81 mg PO BIDCM lowdose #30 tabs 04/21/25 doxycycline monohydrate 100 mg capsule 100 mg PO BID #14 caps 04/21/25 oxycodone 5 mg tablet 5 mg PO Q4H PRN PRN Pain Score 4-10 3 days #12 tabs 04/21/25 Hospital Course Operations - (Revision both components right total hip replacement) Summary of Care Provided Hospital Course: This is a patient that was standing and felt his right leg gave out. He was able to catch himself and did not fall. Patient was found to have a broken proximal right hip prosthesis. Patient underwent a revision on the after reversal of his INR. Patient has done very well with therapy. His situation isnot typical of revision of hip replacements as it was not a fall that broke but appearing to be the device itself that had failed. Patient is doing very well with therapy. Patient was seen in August and operative his workup noted a lytic lesion in his right scapula. He did not ever seek follow-up but we did do a follow-up CAT scan this admission that showed a stable lucent lesion within the right scapula and in the inferior glenoid region. Unchanged. Do recommend 6-month follow-up. This very well may be benign lesion. Since patient's INR was reversed it is down to 1.1. Patient takes warfarin for atrial fibrillation. Hewill resume his warfarin and then be on aspirin 81 mg twice daily until his INR is therapeutic. Discussed with orthopedic service, patient is to be on doxycycline 100 twice daily for 2 weeks given this revision. Weight / BMI Weight Weight: 100.7 kg Body Mass Index (BMI) 30.1 ABG / Lab / Microbiology Data 04/21/25 04:42 04/21/25 04:42 Laboratory: Laboratory Results - last 24 hr 04/20/25 12:05: POC Glucose 143 H 04/20/25 21:53: POC Glucose 188 H 04/21/25 04:42: WBC 16.6 H, RBC 3.84 L, Hgb 12.1 L, Hct 35.7 L, MCV 93.0, MCH 31.5, MCHC 33.9, RDW Std Deviation 45.3 H, RDW Coeff of Risa 13.3, Plt Count 251,MPV 11.2, Immature Gran % (Auto) 0.400, Neut % (Auto) 87.2 H, Lymph % (Auto) 5.1L, Mora % (Auto) 7.2, Eos % (Auto) 0.0, Baso % (Auto) 0.1, Absolute Neuts (auto)14.5 H, Absolute Lymphs (auto) 0.84, Nucleated RBC % 0, PT 14.5, INR 1.1, Pvylra648, Potassium 4.6, Chloride 98, Carbon Dioxide 22.6, Anion Gap 14, BUN 18, Creatinine 0.87, Estim Creat Clear Calc 84.57, Est GFR (MDRD) Non-Af 88, BUN/Creatinine Ratio 21.2 H, Glucose 198 H, Calcium 8.6 04/21/25 06:40: POC Glucose 221 H Radiography Diagnostic Testing: Radiology Impression Hip X-Ray 04/20/25 17:40 IMPRESSION: Intact right hip arthroplasty. Left hip osteoarthrosis. Reading Location: [address] 04/21/25 08:38 IMPRESSION: Coronary artery calcification (CAC) is is present Stable lucent lesion within the right scapula in the inferior glenoid region. It is unchanged in size or appearance compared to the previous study. There is no expansion through the cortical surface. The inner border of the lesion is also free of erosive or irregular changes. I suspect this is a benign lesion but another six-month follow-up could be performed for stability Mild interstitial edema with small pleural effusions and bibasilar atelectasis. Findings are consistent with pulmonary vascular congestion. Follow-up recommended to ensure complete resolution No suspicious adenopathy Degenerative bony changes Reading Location: [facility] D/C Instructions DC O2, CPAP, BIPAP Needs Home O2 Discharge instructions: No Meaningful Use Info Meaningful Use Meaningful Use Diagnoses (Choose all that apply): None applicable Discharge Plan Admission Admit Date/Time: 04/19/25 11:26 Primary Reason for Your Visit: Right hip prosthetic fracture Attending Provider: Marcelino Gracia Primary Care Provider: Neymar Xavier Consulting Providers: Hugo Bradley Instructions Additional Instructions / Restrictions: CAT scan back in August and again this month showed an area on your shoulder blade (scapula) this may be benign but is recommend that you have this followed up in 6 months to see if there is any changes. Thus far things appear unchanged. Weightbearing as tolerated right lower extremity. Discharge Orders/Prescriptions Prescriptions: New acetaminophen 325 mg Tablet 1,000 mg PO Q8H PRN PRN (Reason: Pain 1-10 Or Fever >100.7) Qty: 0 0RF oxycodone 5 mg Tablet 5 mg PO Q4H PRN PRN (Reason: Pain Score 4-10) 3 Days Qty: 12 0RF doxycycline monohydrate 100 mg capsule 100 mg PO BID Qty: 14 0RF Continued losartan 50 mg tablet 100 [...] 2 mg Tablet 4 mg PO SUTUTHSA magnesium 500 mg tablet 15 mg PO DAILY amlodipine 5 mg tablet 5 mg PO DAILY Changed aspirin [Adult Low Dose Aspirin] 81 mg tablet,delayed release (DR/EC) 81 mg PO BIDCM Qty: 30 0RF Rx Instructions: Take twice daily until your INR is between 2 and 3. Then resume daily dosing. Referrals / Follow Up: Neymar Xavier MD [Primary Care Provider, Medical] - Within 2 Weeks Hugo Bradley MD [Med Staff - Active Staff, Orthopedics] - Within 2 Weeks Disposition Disposition (needs filled in before D/C Order can be placed): Home Health Service Charges/Coding Visit Charges Inpatient E&M: 99726 Disch Hosp >30min 04/21/25 1214 <Electronically signed by Marcelino Gracia DO> Cosigner Signature (if applicable): CC: Dr. Marcelino Gracia DO; Dr. Neymar Xavier MD~ Signed [facility] Work Phone: Evaluation note* Diagnosis Type 2 diabetes mellitus without complication, without long-term current use of insulin (CMS/HCC) Psoriatic arthritis (CMS/HCC) Psoriatic arthropathy Chronic atrial fibrillation, unspecified (CMS/HCC) Benign essential hypertension Essential hypertension, benign Hypercholesterolemia Pure hypercholesterolemia Hypertriglyceridemia Pure hyperglyceridemia Healthcare maintenance documented in this encounter [facility] Work Phone: Evaluation note* Diagnosis Cellulitis, unspecified cellulitis site- Primary Tenosynovitis of hand Localized swelling on left hand Type 2 diabetes mellitus with hyperglycemia, without long-term current use of insulin (CMS/HCC) documented in this encounter [facility] Work Phone: Evaluation note* Diagnosis Benign essential hypertension- Primary Essential hypertension, benign Chronic atrial fibrillation, unspecified (CMS/HCC) Type 2 diabetes mellitus with hyperglycemia, without long-term current use of insulin (CMS/HCC) Hypercholesterolemia Pure hypercholesterolemia Anemia, unspecified type Muscle cramp Cramp of limb documented in this encounter [facility] Work Phone: Evaluation note* Diagnosis Localized swelling on left hand Lymphedema, not elsewhere classified documented in this encounter [facility] Work Phone: Evaluation note* Diagnosis Routine [...] neoplasm of prostate documented in this encounter [facility] Work Phone: Evaluation note* [...] of insulin (Multi) documented in this encounter [facility] Work Phone: Evaluation note* [...] health care facility documented in this encounter [facility] Work Phone: Evaluation note* [...] Essential hypertension, benign documented in this encounter [facility] Work Phone: Evaluation note* [...] examination at a health care facility Pre-operative clearance Unspecified pre-operative examination documented in this encounter [facility] Work Phone: Evaluation note* [...] neoplasm of prostate documented in this encounter [facility] Work Phone: Evaluation note* Diagnosis Onset Date Resolution Status Admit Date Acute hypoxic respiratory failure acute September 20, 2024 7:56pm Acute metabolic encephalopathy acute September 20, 2024 7:56pm Atrial fibrillation with RVR acute September 20, 2024 7:56pm Influenza A acute September 20, 7:56pm Multifocal pneumonia acute 2024 7:56pm Overweight (BMI 25.0-29.9) acute September 20, 2024 7:56pm Sepsis acute September 20, 7:56pm COPD exacerbation chronic August 282024 7:56pm [facility] Work Phone: Evaluation note* Diagnosis Type 2 [...] scan of lung documented in this encounter [facility] Work Phone: Evaluation note* [...] Primary Routine general medical examination at a [facility] care [facility] Benign essential hypertension Essential hypertension, benign [...] scan of lung documented in this encounter [facility] Work Phone: Evaluation note* [...] scan of lung documented in this encounter [facility] Work Phone: Evaluation note* [...] care facility Routine general medical examination at [facility] care facility- Primary Routine general medical examination at a [facility] Benign essential hypertension Essential [...] tissues of limb documented in this encounter [facility] Work Phone: Evaluation note* [...] facility Routine general medical examination at a [facility] care facility Routine general medical examination at [facility] facility- Primary Routine general medical examination at a [facility] facility Benign essential hypertension Essential [...] tissues of limb documented in this encounter [facility] Work Phone: Evaluation note* [...] general medical examination at a health care [facility] Benign essential hypertension Essential hypertension, benign [...] Essential hypertension, benign documented in this encounter [facility] Work Phone: Evaluation note* [...] of left hip documented in this encounter [facility] Work Phone: Evaluation note* [...] Essential hypertension, benign documented in this encounter [facility] Work Phone: Evaluation note* [...] Primary Routine general medical examination at a [facility] care facility Benign essential hypertension Essential hypertension, [...] fibrillation, unspecified (Multi) documented in this encounter [facility] Work Phone: Evaluation note* [...] Special screening for malignant neoplasm of prostate Closed fracture of right hip with routine healing, subsequent encounter- Primary Benign essential hypertension Essential hypertension, benign Chronic atrial fibrillation, unspecified (Multi) documented in this encounter [facility] Work Phone: History and physical note [facility] Medical Records Department [address] [place] [address] H&P Exam - Hospitalist 04/19/25 1457 MR#: [id number] Acct: [id number] Name: HATTIE VALDERRAMA Rep #:[id number] : 1945 80 From: Marcelino Gracia DO PCP: Dr. Neymar Xavier MD Status: ADM IN Location: [place] [id number] HPI - General General Date of Admission: 04/19/25 Date of Service: 04/19/25 Chief Complaint: Right hip pain HPI Narrative HATTIE VALDERRAMA, is a 80 M who presents with right hip pain. This is a 6-wywz-wgixrom with a history of atrial fibrillation who was in his kitchen tending to hispuppies where he twisted ever so slightly and felt his right hip gave out. He did not fall and is actually able to brace himself in the kitchen and was able to lower himself to the ground. He presented to the emergency room where it wasnoted that he had a transverse cervical fracture of the prosthetic component of his right total hip withcephalic migration of the distal fracture fragments. Patient had this hip replacement in 2006 and has been doing well. [ ] [facility] Medical History Overweight (BMI 25.0-29.9) Kidney stones Diabetes Atrial fibrillation Hypertension Home Medications ?Medication ?Instructions ?Recorded ?Last Taken ?Type atorvastatin 40 mg tablet 40 mg PO QHS CHOLESTEROL 04/18/25 History glimepiride 2 mg tablet 2 mg PO DAILY DIABETES 05/2004/18/25 History losartan 50 mg tablet 100 mg PO DAILY BLOOD PRESSU RE 05/20/22 04/18/25 History metformin 500 mg tablet 1,000 mg PO BID DIABETES 04/19/25 History metoprolol succinate 100 mg 100 mg PO DAILY BLOOD PRES SURE AND 05/20/22 04/19/25 History tablet,extended release 24 hr HEART RATE warfarin 2 mg tablet 4 mg PO SUTUTHSA blood clots 05/20/22 04/18/25 History warfarin 2 mg tablet 6 mg PO QMWF blood clots 04/17/25 History amlodipine 5 mg tablet 5 mg PO DAILY high blood pre ssure 04/19/25 04/18/25 History aspirin 81 mg tablet,delayed 81 mg PO DAILY low dose 1 04/18/25 History release (Adult Low Dose Aspirin) magnesium 500 mg tablet 15 mg PO DAILY for low mag 1 04/18/25 History Allergy/AdvReac Type Severity Reaction Status Date / Time No Known Allergies Allergy Verified 09/20/24 17:36 Family History (Updated 04/19/25 @ 14:[address] Marcelino Gracia DO) Other Heart disease Surgical History History of hip replacement History of knee replacement Social History Smoking Status: Former smoker ROS ROS Narrative All review of systems were negative except as mentioned above in the history of present illness andthe other review of systems. Vital Signs Vital Signs Vital Signs: 04/19/25 08:20 04/19/25 11:35 04/19/25 12:15 Temperature 36.5 C L 36.6 C Temperature Source Oral Pulse Rate 94 74 78 Respiratory Rate 18 16 16 Respiratory Effort Respiratory Depth Respiratory Pattern Blood Pressure 125/80 H 111/68 115/78 Blood Pressure Mean 95 82 90 Blood Pressure Source Blood Pressure Position Pulse Ox 98 99 98 Oxygen Delivery Method Room Air 04/19/25 13:55 04/19/25 13:59 Temperature 36.5 C L Temperature Source Oral Pulse Rate 76 Respiratory Rate 16 Respiratory Effort Non-Labored Respiratory Depth Normal Respiratory Pattern Normal Blood Pressure 108/74 Blood Pressure Mean 85 Blood Pressure Source Monitor Blood Pressure Position Supine Pulse Ox 94 Oxygen Delivery Method Room Air Room Air Weight Weight: 103.1 kg Body Mass Index (BMI) 30.8 Physical Exam Const alert and no apparent distress Constitutional Narrative: Comfortable. Nontoxic. HEENT normocephalic and head/scalp atraumatic Resp normal respiratory effort, no retractions, no use of accessory muscles and clearto auscultation bilaterally Cardio regular rate, regular rhythm, S1 normal heart sound and S2 normal heart sound GI normal to inspection, nondistended, normoactive bowel sounds, soft to palpation,non-tender and non-distended Neuro Sensorium / Orientation: awake and alert Psych affect normal Results Lab / Micro Data 04/19/25 09:50 04/19/25 09:50 Labs: Laboratory Results - last 24 hr 04/19/25 09:50: WBC 7.5, RBC 3.89 L, Hgb 12.1 L, Hct 36.9 L, MCV 94.9 H, MCH 31.1, MCHC 32.8, RDW Std Deviation 47.1 H, RDW Coeff of Risa 13.6, Plt Count 241,MPV 10.4, Immature Gran % (Auto) 0.500, Neut % (Auto) 73.8 H, Lymph % (Auto) 15.7 L, Mora % (Auto) 8.1, Eos % (Auto) 1.2, Baso % (Auto) 0.7, Absolute Neuts (auto) 5.5, Absolute Lymphs (auto) 1.18, Nucleated RBC % 0, PT 29.2 H, INR 2.7, [id number], Potassium 4.3, Chloride 103, Carbon Dioxide 29.6, Anion Gap 7, BUN 16, Creatinine 0.87, Estim Creat Clear Calc 86.79, Est GFR (MDRD) Non-Af 88, BUN/Creatinine Ratio 18.3, Glucose 221 H, Calcium 9.2, Total Bilirubin 0.59, Direct Bilirubin 0.28, AST 20, ALT 18, Alkaline Phosphatase 65, Total Protein 6.9, Albumin 4.1, Globulin 2.8, Vitamin D 25-Hydroxy 39.5 Imaging Radiology Impression Hip/Pelvis X-Ray 04/19/25 08:23 IMPRESSION: Transverse cervical fracture of the prosthetic component of the right total hip with cephalic migration of the distal fracture fragment. Reading Location: [facility] Chest X-Ray 04/19/25 09:39 IMPRESSION: There is cardiomegaly without overt CHF. Reading Location: [facility] Assessment & Plan Assessment/Plan (1) Prosthetic hip implant failure: PLAN: Atraumatic as patient just twisting in his kitchen. Dr. Bradley, orthopedics, was contacted and will see the patient and tentative plan is for the patient have surgery on the . In meantime, patient will be on bedrest, pain control as he needs it. After surgery, therapy evaluations and determine disposition needs thereafter. (2) Coagulopathy: PLAN: Patient appropriately anticoagulated with warfarin for atrial fibrillation. With his upcomingsurgery, patient received 5 mg of vitamin K in the emergency room. Repeat INR pending. PLAN: Plan Diabetes mellitus type 2: Continue with glimepiride and metformin postsurgery. Atrial fibrillation: Warfarin currently on hold but to be resumed after surgery continue with metoprolol succinate. VTE prophylaxis with SCDs for now CODE STATUS: Addressed with the patient. Patient wishes to be full code. Charges/Coding Visit Charges Inpatient E&M: 85500 Init Hosp L2 04/19/25 1501 Cosigner Signature (if applicable): CC: Dr. Marcelino Gracia DO; Dr. Neymar Xavier MD~ [facility]igned [facility] Author Marcelino Carbajalbeth [facility] Note Date/Time April 19, 2025 4 :01pm [facility] Medical Records Department [address] [place] [address] H&P Exam - Hospitalist 04/19/25 1457 MR#: [id number] Acct: [id number] Name: HATTIE VALDERRAMA Rep #:[id number] : 1945 80 From: Marcelino Gracia DO PCP: Dr. Neymar Xavier MD Status: ADM [facility] - General General Date of Admission: 04/19/25 Date of Service: 04/19/25 Chief Complaint: Right hip pain HPI Narrative HATTIE VALDERRAMA, is a 80 M who presents with right hip pain. This is a 34-oovc-cyxpawy with a history of atrial fibrillation who was in his kitchen tending to hispuppies where he twisted ever so slightly and felt his right hip gave out. He did not fall and is actually able to brace himself in the kitchen and was able to lower himself to the ground. He presented to the emergency room where it wasnoted that he had a transverse cervical fracture of the prosthetic component of his right total hip with cephalic migration of the distal fracture fragments. Patient had this hip replacement in 2006 and has been doing well. [ ] [facility] Medical History Overweight (BMI 25.0-29.9) Kidney stones Diabetes Atrial fibrillation Hypertension Home Medications ?Medication ?Instructions ?Recorded ?Last Taken ?Type atorvastatin 40 mg tablet 40 mg PO QHS CHOLESTEROL 04/18/25 History glimepiride 2 mg tablet 2 mg PO DAILY DIABETES 05/2004/18/25 History losartan 50 mg tablet 100 mg PO DAILY BLOOD PRESSU RE 05/20/22 04/18/25 History metformin 500 mg tablet 1,000 mg PO BID DIABETES 04/19/25 History metoprolol succinate 100 mg 100 mg PO DAILY BLOOD PRES SURE AND 05/20/22 04/19/25 History tablet,extended release 24 hr HEART RATE warfarin 2 mg tablet 4 mg PO SUTUTHSA blood clots 05/20/22 04/18/25 History warfarin 2 mg tablet 6 mg PO QMWF blood clots 04/17/25 History amlodipine 5 mg tablet 5 mg PO DAILY high blood pre ssure 04/19/25 04/18/25 History aspirin 81 mg tablet,delayed 81 mg PO DAILY low dose 1 04/18/25 History release (Adult Low Dose Aspirin) magnesium 500 mg tablet 15 mg PO DAILY for low mag 1 04/18/25 History Allergy/AdvReac Type Severity Reaction Status Date / Time No Known Allergies Allergy Verified 09/20/24 17:36 Family History (Updated 04/19/25 @ 14:[address] Marcelino Gracia DO) Other Heart disease Surgical History History of hip replacement History of knee replacement Social History Smoking Status: Former smoker ROS ROS Narrative All review of systems were negative except as mentioned above in the history of present illness and the other review of systems. Vital Signs Vital Signs Vital Signs: 04/19/25 08:20 04/19/25 11:35 04/19/25 12:15 Temperature 36.5 C L 36.6 C Temperature Source Oral Pulse Rate 94 74 78 Respiratory Rate 18 16 16 Respiratory Effort Respiratory Depth Respiratory Pattern Blood Pressure 125/80 H 111/68 115/78 Blood Pressure Mean 95 82 90 Blood Pressure Source Blood Pressure Position Pulse Ox 98 99 98 Oxygen Delivery Method Room Air 04/19/25 13:55 04/19/25 13:59 Temperature 36.5 C L Temperature Source Oral Pulse Rate 76 Respiratory Rate 16 Respiratory Effort Non-Labored Respiratory Depth Normal Respiratory Pattern Normal Blood Pressure 108/74 Blood Pressure Mean 85 Blood Pressure Source Monitor Blood Pressure Position Supine Pulse Ox 94 Oxygen Delivery Method Room Air Room Air Weight Weight: 103.1 kg Body Mass Index (BMI) 30.8 Physical Exam Const alert and no apparent distress Constitutional Narrative: Comfortable. Nontoxic. HEENT normocephalic and head/scalp atraumatic Resp normal respiratory effort, no retractions, no use of accessory muscles and clearto auscultation bilaterally Cardio regular rate, regular rhythm, S1 normal heart sound and S2 normal heart sound GI normal to inspection, nondistended, normoactive bowel sounds, soft to palpation,non-tender and non-distended Neuro Sensorium / Orientation: awake and alert Psych affect normal Results Lab / Micro Data 04/19/25 09:50 04/19/25 09:50 Labs: Laboratory Results - last 24 hr 04/19/25 09:50: WBC 7.5, RBC 3.89 L, Hgb 12.1 L, Hct 36.9 L, MCV 94.9 H, MCH 31.1, MCHC 32.8, RDW Std Deviation 47.1 H, RDW Coeff of Risa 13.6, Plt Count 241,MPV 10.4, Immature Gran % (Auto) 0.500, Neut % (Auto) 73.8 H, Lymph % (Auto) 15.7 L, Mora % (Auto) 8.1, Eos % (Auto) 1.2, Baso % (Auto) 0.7, Absolute Neuts (auto) 5.5, Absolute Lymphs (auto) 1.18, Nucleated RBC % 0, PT 29.2 H, INR 2.7, Sodium 140, Potassium 4.3, Chloride 103, Carbon Dioxide 29.6, Anion Gap 7, BUN 16, Creatinine 0.87, Estim Creat Clear Calc 86.79, Est GFR (MDRD) Non-Af 88, BUN/Creatinine Ratio 18.3, Glucose 221 H, Calcium 9.2, Total Bilirubin 0.59, Direct Bilirubin 0.28, AST 20, ALT 18, Alkaline Phosphatase 65, Total Protein 6.9, Albumin 4.1, Globulin 2.8, Vitamin D 25- Hydroxy 39.5 Imaging Radiology Impression Hip/Pelvis X-Ray 04/19/25 08:23 IMPRESSION: Transverse cervical fracture of the prosthetic component of the right total hip with cephalic migration of the distal fracture fragment. Reading Location: [facility] Chest X-Ray 04/19/25 09:39 IMPRESSION: There is cardiomegaly without overt CHF. Reading Location: [facility] Assessment & Plan Assessment/Plan (1) Prosthetic hip implant failure: PLAN: Atraumatic as patient just twisting in his kitchen. Dr. Bradley, orthopedics, was contacted and will see the patient and tentative plan is for the patient have surgery on the . In meantime, patient will be on bedrest, pain control as he needs it. After surgery, therapy evaluations and determine disposition needs thereafter. (2) Coagulopathy: PLAN: Patient appropriately anticoagulated with warfarin for atrial fibrillation. With his upcoming surgery, patient received 5 mg of vitamin K in the emergency room. Repeat INR pending. PLAN: Plan Diabetes mellitus type 2: Continue with glimepiride and metformin postsurgery. Atrial fibrillation: Warfarin currently on hold but to be resumed after surgery continue with metoprolol succinate. VTE prophylaxis with SCDs for now CODE STATUS: Addressed with the patient. Patient wishes to be full code. Charges/Coding Visit Charges Inpatient E&M: 71006 Init Hosp L2 04/19/25 1501 <Electronically signed by Marcelino Gracia DO> Cosigner Signature (if applicable): CC: Dr. Marcelino Gracia DO; Dr. Neymar Xavier MD~ Signed [facility] Work Phone: History of Present illness NarrativeHERE FOR F/U NO COMPLAINTNorthern [facility] Work Phone: History of Present illness NarrativeHERE FOR F/U NO COMPLAINTMP-[facility] [place] [facility] Work Phone: History of Present illness [...] NO COMPLAINT * WELLNESS EXAM [facility] Work Phone: History of Present illness [...] FOR F/U NO COMPLAINT * WELLNESS EXAM [facility] Work Phone: History of Present illness NarrativeHERE FOR F/U NO COMPLAINTNorthern [facility] Work Phone: History of Present illness NarrativeHERE FOR F/U NO COMPLAINTNorthern [facility] Work Phone: History of Present illness Narrative* HERE FOR F/U WITH LABS * C/O LE CRAMPS X 1 MO * BP VERY GOOD AT HOME [facility] Work Phone: History of [...] EXERCISE DAILY Fu before documented in this [facility] Work Phone: History of Present illness [...] compared to the equimolar-standardized total PSA (Renny [place]). Comparison of serial PSA results should be [...] Fu 4 mo bw documented in this [facility] Work Phone: Hospital Discharge instructionsAdditional Instructions CAT scan back in August and again this month showed an area on your shoulder blade (scapula) this may be benign but is recommend that you have this followed up in 6 months to see if there is any changes. Thus far things appear unchanged. Weightbearing as tolerated right lower extremity.[facility] Work Phone: Progress note [facility] Medical Records Department [address] [facility] [place] [address] Progress Note - Hospitalist 04/20/25 1423 MR#: [id number] Acct: [id number] Name: HATTIE VALDERRAMA Rep #:[id number] : 1945 80 From: Marcelino Gracia DO PCP: Dr. Neymar Xavier MD Status: ADM IN Location: [facility]- 1 Reason for Visit Chief Complaint: Right hip pain Subjective Subjective Feeling okay. Waiting for surgery. Objective Data Objective Data Vital Signs: Vital Signs Temp Pulse Resp BP Pulse Ox O2 Del Method 37.3 C 79 16 126/72 H 92 Room Air 04/20/25 13:39 04/20/25 13:39 04/20/25 13:39 04/20/25 13:39 04/20/25 13:39 04/20/25 13:39 Oxygen Delivery Method Room Air Weight: 100.7 kg Body Mass Index (BMI) 30.1 Intake & Output: Intake and Output for Last 24 Hours 04/18/25 04/19/25 04/20/25 23:59 23:59 23:59 Output Total 750 / 750 Balance -750 / -750 Lab / Micro Data 04/20/25 03:48 04/20/25 03:48 Labs: Laboratory Results - last 24 hr 04/19/25 09:50: Vitamin D 25-Hydroxy 39.5 04/19/25 14:36: PT 28.7 H, INR 2.6 04/19/25 17:23: POC Glucose 151 H 04/19/25 21:57: POC Glucose 122 H 04/20/25 03:48: WBC 10.2, RBC 3.84 L, Hgb 12.4 L, Hct 36.2 L, MCV 94.3 H, MCH 32.3 H, MCHC 34.3, RDW Std Deviation 46.4 H, RDW Coeff of Risa 13.4, Plt Count 243, MPV 10.9, Immature Gran % (Auto) 0.200, Neut % (Auto) 69.5, Lymph % (Auto) 19.0, Mora % (Auto) 9.7, Eos % (Auto) 1.2, Baso % (Auto) 0.4, Absolute Neuts (auto) 7.1, Absolute Lymphs (auto) 1.94, Nucleated RBC % 0, PT 19.3 H, INR 1.6, [id number], Potassium 4.2, Chloride 104, Carbon Dioxide 25.0, Anion Gap 11, BUN 15, Creatinine 0.77, EstimCreat Clear Calc 92.98, Est GFR (MDRD) Non-Af 91, BUN/Creatinine Ratio 19.2, Glucose 138 H, Hemoglobin A1c 6.7 H, Calcium 9.1, Blood Type O POSITIVE, Antibody Screen NEGATIVE 04/20/25 07:02: POC Glucose 131 H 04/20/25 12:05: POC Glucose 143 H Physical Exam Const alert and no apparent distress Constitutional Narrative: Resting comfortably in bed HEENT head/scalp atraumatic and moist oral mucous membranes Resp normal respiratory effort and no retractions Assessment & Plan Assessment/Plan (1) Prosthetic hip implant failure: PLAN: Atraumatic as patient just twisting in his kitchen. Dr. Bradley, orthopedics, was contacted and will see the patient and tentative plan is for the patient have surgery on the . In meantime, patient will be on bedrest, pain control as he needs it. After surgery, therapy evaluations and determine disposition needs thereafter. (2) Coagulopathy: PLAN: Patient appropriately anticoagulated with warfarin for atrial fibrillation. With his upcomingsurgery, patient received 5 mg of vitamin K in the emergency room. Repeat INR pending. (3) Lytic bone lesions on xray: PLAN: Noted on chest CT from September 20 of this year in his right scapula. Patient had a CAT scan of his chest abdomen pelvis the next day on the that showed no report of that lytic lesion and no metastatic focus or anything in that nature. It was instructed the patient follow-up with further imaging in 6 months time but patient never did so. Discussed with the patient that we can reevaluate that why he is here. Given his oncoming surgery this afternoon we will look to having that done tomorrow. PLAN: Plan Diabetes mellitus type 2: Continue with glimepiride and metformin postsurgery. Atrial fibrillation: Warfarin currently on hold but to be resumed after surgery continue with metoprolol succinate. VTE prophylaxis with SCDs for now CODE STATUS: Addressed with the patient. Patient wishes to be full code. Charges/Coding Visit Charges Inpatient E&M: 10591 Subs Hosp L2 04/20/25 1426 Cosigner Signature (if applicable): CC: ~ Signed [facility] Medical [facility] [address] [place] [address] Progress Note - Orthopedic 04/21/25 0738 MR#: [id number] Acct: [id number] Name: HATTIE VALDERRAMA Rep #:[id number] : 1945 80 From: Rosa RUIZ PCP: Dr. Neymar Xavier MD Status: ADM IN Location: [place] [address] Subjective Subjective Patient is sitting comfortably in bed upon examination. Patient states that he is doing well and that his pain is adequately controlled at this time. Patient states that he does plan to go back home.Patient states that he does have helpat home at this time. Patient states that he is stood up next to the bed with his walker but has not been up and walking at this point. Patient denies any shortness of breath, chest pain, calf pain. Patient denies any new numbness or tingling. Patient denies anyfevers, chills, signs of infection. Patient denies any adverse events overnight. Objective Data Objective Data Vital Signs: Vital Signs Temp Pulse Resp BP Pulse Ox O2 Del Method O2 Flow Rate 98.1 F 110 H 16 106/72 95 Nasal Cannula 2 04/21/25 03:48 04/21/25 03:48 04/21/25 03:48 04/21/25 03:48 04/21/25 03:48 04/21/25 04:25 04/21/25 04:25 Oxygen Flow Rate (L/min) 2 Oxygen Delivery Method Nasal Cannula Weight: 100.7 kg Body Mass Index (BMI) 30.1 Intake & Output: Intake and Output for Last 24 Hours 04/19/25 04/20/25 04/21/25 23:59 23:59 23:59 Intake Total 1160 / 1160 Output Total 1200 / 1500 1300 / 1300 Balance -40 / -340 -1300 / -1300 Lab / Micro Data 04/21/25 04:42 04/21/25 04:42 Labs: Laboratory Results - last 24 hr 04/20/25 12:05: POC Glucose 143 H 04/20/25 21:53: POC Glucose 188 H 04/21/25 04:42: WBC 16.6 H, RBC 3.84 L, Hgb 12.1 L, Hct 35.7 L, MCV 93.0, MCH 31.5, MCHC 33.9, RDW Std Deviation 45.3 H, RDW Coeff of Risa 13.3, Plt Count 251,MPV 11.2, Immature Gran % (Auto) 0.400, Neut % (Auto) 87.2 H, Lymph % (Auto) 5.1L, Mora % (Auto) 7.2, Eos % (Auto) 0.0, Baso % (Auto) 0.1, Absolute Neuts (auto)14.5 H, Absolute Lymphs (auto) 0.84, Nucleated RBC % 0, PT 14.5, INR 1.1, [id number], Potassium 4.6, Chloride 98, Carbon Dioxide 22.6, Anion Gap 14, BUN 18, Creatinine 0.87, Estim Creat Clear Calc 84.57, Est GFR (MDRD) Non-Af 88, BUN/Creatinine Ratio 21.2 H, Glucose 198 H, Calcium 8.6 04/21/25 06:40: POC Glucose 221 H Radiography Diagnostic Testing: Radiology Impression Hip X-Ray 04/20/25 17:40 IMPRESSION: Intact right hip arthroplasty. Left hip osteoarthrosis. Reading Location: [address] Physical Exam Narrative JOSE hose in place bilaterally SCDs in place bilaterally Dressing is clean, dry, intact. Right hip soft and supple. Dorsiflexion and plantarflexion are performed actively without pain or restriction Sensation intact light touch. Neurovascularly intact overall. Negative Homans bilaterally. 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 DVT prophylaxis: Patient will be restarting his regular dose of Coumadin. Patient will also be wearing JOSE hose for 2 weeks postoperatively. Patient was educated take JOSE hose off at nighttime and when he is to take shower. 2. Pain medications: Patient states that his pain is adequately controlled at this time. Patient iscurrently on Tylenol and oxycodone per primary care team. Pain management will continue to be managed by primary care team. OARRS reportwas reviewed today. 3. Constipation: Patient was instructed to take senna until first bowel movement and then can take as needed. Patient was educated if he has not had a bowel movement in 3 days to contact our office for reevaluation. 4. Physical therapy: Patient was educated that he will need to set up outpatient physical therapy. Patient was educated on posterior hip precautions in office today. Patient was educated he will needto follow posterior hip precautions for 6 weeks. Patient will be weightbearing as tolerated with his walker. 5. H&H: 12.1/35.7. Patient is currently afebrile and vitals are stable. 6. Reactive leukocytosis: White blood cell count is currently 16.6. Patient did receive Decadron intraoperatively. Patient is currently afebrile and vitalsare stable. 7. Incentive spirometry: Patient was encouraged to use incentive spirometer every hour that he is awake for the first week to x-ray his lungs and decrease risk postoperative lung infection. 8. Dressings: Patient was educated that he can get waterproof dressing wet on postop day 1. Patientwas educated that he can remove dressing on postoperativeday 5. Patient was educated to leave open to air as long as clean, dry, intact. Patient was educated no soaking or submerging for 6 weeks. Patient was educated not to place any lotions, salves, oils over incision for 6 weeks. Patient voiced understanding. 9. Patient is to follow-up for postoperative instructions. 10. Patient will need a 2-week follow-up appointment for suture removal and wound check at [facility] [place]. 11. Patient will be on famotidine for 30 days postoperatively. 12. Doxycycline: Patient will be on doxycycline for 2 weeks postoperatively dueto nature of revision surgery. Patient was educated on risk of sunburn while ondoxycycline. Patient was educated to takea probiotic while on doxycycline. Patient voiced understanding. 13. Disposition: Patient is okay for discharge from orthopedic services as longas pain maintains adequately controlled, has worked with and is cleared by physical therapy, and is okay per primary care team. Pain management will continue to be managed by primary care team. Patient was educated on the use ofdoxycycline postoperatively. Patient was educated on the use of outpatient physical therapy as well as posterior hip precautions that he would need to follow for 6 weeks. Patient will be weightbearing as tolerated with walker. Patient will need a follow-up appointment with our office in 2 weeks for suture removal. Patient was encouraged to call with any questions, concerns, new problems. All questions were answered to best my ability. 04/21/25 0746 Cosigner Signature (if applicable): CC: ~ Signed [facility] Department [address] [place] [address] Progress Note - Hospitalist 04/21/25 0835 MR#: [id number] Acct: [id number] Name: HATTIE VALDERRAMA Rep #:[id number] : 1945 80 From: Marcelino Gracia DO PCP: Dr. Neymar Xavier MD Status: ADM IN Location: [place] [address] Reason for Visit Chief Complaint: Right hip pain Subjective Subjective Feeling well. Objective Data Objective Data Vital Signs: Vital Signs Temp Pulse Resp BP Pulse Ox O2 Del Method O2 Flow Rate 36.6 C 101 H 16 111/67 97 Nasal Cannula 2 04/21/25 07:42 04/21/25 07:45 04/21/25 07:42 04/21/25 07:42 04/21/25 07:42 04/21/25 07:42 04/21/25 07:42 Oxygen Flow Rate (L/min) 2 Oxygen Delivery Method Nasal Cannula Weight: 100.7 kg Body Mass Index (BMI) 30.1 Intake & Output: Intake and Output for Last 24 Hours 04/19/25 04/20/25 04/21/25 23:59 23:59 23:59 Intake Total 1160 / 1160 Output Total 1200 / 1500 1300 / 1300 Balance -40 / -340 -1300 / -1300 Lab / Micro Data 04/21/25 04:42 04/21/25 04:42 Labs: Laboratory Results - last 24 hr 04/20/25 12:05: POC Glucose 143 H 04/20/25 21:53: POC Glucose 188 H 04/21/25 04:42: WBC 16.6 H, RBC 3.84 L, Hgb 12.1 L, Hct 35.7 L, MCV 93.0, MCH 31.5, MCHC 33.9, RDW Std Deviation 45.3 H, RDW Coeff of Risa 13.3, Plt Count 251,MPV 11.2, Immature Gran % (Auto) 0.400, Neut % (Auto) 87.2 H, Lymph % (Auto) 5.1L, Mora % (Auto) 7.2, Eos % (Auto) 0.0, Baso % (Auto) 0.1, Absolute Neuts (auto)14.5 H, Absolute Lymphs (auto) 0.84, Nucleated RBC % 0, PT 14.5, INR 1.1, [id number], Potassium 4.6, Chloride 98, Carbon Dioxide 22.6, Anion Gap 14, BUN 18, Creatinine 0.87, Estim Creat Clear Calc 84.57, Est GFR (MDRD) Non-Af 88, BUN/Creatinine Ratio 21.2 H, Glucose 198 H, Calcium 8.6 04/21/25 06:40: POC Glucose 221 H Radiography Diagnostic Testing: Radiology Impression Hip X-Ray 04/20/25 17:40 IMPRESSION: Intact right hip arthroplasty. Left hip osteoarthrosis. 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 Pt underwent revision both components right total hip replacement (2) Coagulopathy: PLAN: Iatrogenic (appropriately so). Resolved after vitamin K. Now, post surgery, pt to resume his warfarin. (3) Lytic bone lesions on xray: PLAN: Noted on chest CT from September 20 of this year in his right scapula. Patient had a CAT scan of his chest abdomen pelvis the next day on the that showed no report of that lytic lesion and no metastatic focus or anything in that nature. It was instructed the patient follow-up with further imaging in 6 months time but patient never did so. Will order CT of the chest without contrast. Discussed with machine packaging technician that CAT scan without contrast center looking at the lytic lesion would be fine. PLAN: Plan Diabetes mellitus type 2: Continue with glimepiride and metformin postsurgery. Atrial fibrillation: Resume warfarin and continue metoprolol VTE prophylaxis restart warfarin. Since INR is subtherapuetic given the vitamin K, we will utilize twice daily aspirin until INR is therapeutic CODE STATUS: Addressed with the patient. Patient wishes to be full code. 04/21/25 1102 Cosigner Signature (if applicable): CC: ~ Signed [facility] Author Marcelino Gracia [facility] Note Date/Time April 20, 2025 3 :26pm [facility] Medical Records Department [address] [place] [id number] Progress Note - Hospitalist 04/20/25 1423 MR#: [id number] Acct: [id number] Name: HATTIE VALDERRAMA Misty Rep #:[id number] : 1945 80 From: Marcelino Gracia DO PCP: Dr. Neymar Xavier MD Status: ADM IN Location: [place] [address] Reason for Visit Chief Complaint: Right hip pain Subjective Subjective Feeling okay. Waiting for surgery. Objective Data Objective Data Vital Signs: Vital Signs Temp Pulse Resp BP Pulse Ox O2 Del Method 37.3 C 79 16 126/72 H 92 Room Air 04/20/25 13:39 04/20/25 13:39 04/20/25 13:39 04/20/25 13:39 04/20/25 13:39 04/20/25 13:39 Oxygen Delivery Method Room Air Weight: 100.7 kg Body Mass Index (BMI) 30.1 Intake & Output: Intake and Output for Last 24 Hours 04/18/25 04/19/25 04/20/25 23:59 23:59 23:59 Output Total 750 / 750 Balance -750 / -750 Lab / Micro Data 04/20/25 03:48 04/20/25 03:48 Labs: Laboratory Results - last 24 hr 04/19/25 09:50: Vitamin D 25-Hydroxy 39.5 04/19/25 14:36: PT 28.7 H, INR 2.6 04/19/25 17:23: POC Glucose 151 H 04/19/25 21:57: POC Glucose 122 H 04/20/25 03:48: WBC 10.2, RBC 3.84 L, Hgb 12.4 L, Hct 36.2 L, MCV 94.3 H, MCH 32.3 H, MCHC 34.3, RDW Std Deviation 46.4 H, RDW Coeff of Risa 13.4, Plt Count 243, MPV 10.9, Immature Gran % (Auto) 0.200, Neut % (Auto) 69.5, Lymph % (Auto) 19.0, Mora % (Auto) 9.7, Eos % (Auto) 1.2, Baso % (Auto) 0.4, Absolute Neuts (auto) 7.1, Absolute Lymphs (auto) 1.94, Nucleated RBC % 0, PT 19.3 H, INR 1.6, Sodium 140, Potassium 4.2, Chloride 104, Carbon Dioxide 25.0, Anion Gap 11, BUN 15, Creatinine 0.77, Estim Creat Clear Calc 92.98, Est GFR (MDRD) Non-Af 91, BUN/Creatinine Ratio 19.2, Glucose 138 H, Hemoglobin A1c 6.7 H, Calcium 9.1, Blood Type O POSITIVE, Antibody Screen NEGATIVE 04/20/25 07:02: POC Glucose 131 H 04/20/25 12:05: POC Glucose 143 H Physical Exam Const alert and no apparent distress Constitutional Narrative: Resting comfortably in bed HEENT head/scalp atraumatic and moist oral mucous membranes Resp normal respiratory effort and no retractions Assessment & Plan Assessment/Plan (1) Prosthetic hip implant failure: PLAN: Atraumatic as patient just twisting in his kitchen. Dr. Bradley, orthopedics, was contacted and will see the patient and tentative plan is for the patient have surgery on the . In meantime, patient will be on bedrest, pain control as he needs it. After surgery, therapy evaluations and determine disposition needs thereafter. (2) Coagulopathy: PLAN: Patient appropriately anticoagulated with warfarin for atrial fibrillation. With his upcoming surgery, patient received 5 mg of vitamin K in the emergency room. Repeat INR pending. (3) Lytic bone lesions on xray: PLAN: Noted on chest CT from September 20 of this year in his right scapula. Patient had a CAT scan of his chest abdomen pelvis the next day on the that showed no report of that lytic lesion and no metastatic focus or anything in that nature. It was instructed the patient follow-up with further imaging in 6 months time but patient never did so. Discussed with the patient that we can reevaluate that why he is here. Given his oncoming surgery this afternoon we will look to having that done tomorrow. PLAN: Plan Diabetes mellitus type 2: Continue with glimepiride and metformin postsurgery. Atrial fibrillation: Warfarin currently on hold but to be resumed after surgery continue with metoprolol succinate. VTE prophylaxis with SCDs for now CODE STATUS: Addressed with the patient. Patient wishes to be full code. Charges/Coding Visit Charges Inpatient E&M: 18970 Subs Hosp L2 04/20/25 1426 <Electronically signed by Marcelino Gracia DO> Cosigner Signature (if applicable): CC: ~ Signed [facility] Work Phone: Progress note Author Rosa Genaro [facility] Note Date/Time April 21, 2025 8 :46am [facility] Medical Records Department [address] [place] [address] Progress Note - Orthopedic 04/21/25 0738 MR#: [id number] Acct: [id number] Name: HATTIE VALDERRAMA Misty Rep #:[id number] : 1945 80 From: Rosa RUIZ PCP: Dr. Neymar Xavier MD Status: ADM IN Location: [place] [id number] 1 Subjective Subjective Patient is sitting comfortably in bed upon examination. Patient states that he is doing well and that his pain is adequately controlled at this time. Patient states that he does plan to go back home. Patient states that he does have helpat home at this time. Patient states that he is stood up next to the bed with his walker but has not been up and walking at this point. Patient denies any shortness of breath, chest pain, calf pain. Patient denies any new numbness or tingling. Patient denies any fevers, chills, signs of infection. Patient denies any adverse events overnight. Objective Data Objective Data Vital Signs: Vital Signs Temp Pulse Resp BP Pulse Ox O2 Del Method O2 Flow Rate 98.1 F 110 H 16 106/72 95 Nasal Cannula 2 04/21/25 03:48 04/21/25 03:48 04/21/25 03:48 04/21/25 03:48 04/21/25 03:48 04/21/25 04:25 04/21/25 04:25 Oxygen Flow Rate (L/min) 2 Oxygen Delivery Method Nasal Cannula Weight: 100.7 kg Body Mass Index (BMI) 30.1 Intake & Output: Intake and Output for Last 24 Hours 04/19/25 04/20/25 04/21/25 23:59 23:59 23:59 Intake Total 1160 / 1160 Output Total 1200 / 1500 1300 / 1300 Balance -40 / -340 -1300 / -1300 Lab / Micro Data 04/21/25 04:42 04/21/25 04:42 Labs: Laboratory Results - last 24 hr 04/20/25 12:05: POC Glucose 143 H 04/20/25 21:53: POC Glucose 188 H 04/21/25 04:42: WBC 16.6 H, RBC 3.84 L, Hgb 12.1 L, Hct 35.7 L, MCV 93.0, MCH 31.5, MCHC 33.9, RDW Std Deviation 45.3 H, RDW Coeff of Risa 13.3, Plt Count 251,MPV 11.2, Immature Gran % (Auto) 0.400, Neut % (Auto) 87.2 H, Lymph % (Auto) 5.1L, Mora % (Auto) 7.2, Eos % (Auto) 0.0, Baso % (Auto) 0.1, Absolute Neuts (auto)14.5 H, Absolute Lymphs (auto) 0.84, Nucleated RBC % 0, PT 14.5, INR 1.1, Vjpeac126, Potassium 4.6, Chloride 98, Carbon Dioxide 22.6, Anion Gap 14, BUN 18, Creatinine 0.87, Estim Creat Clear Calc 84.57, Est GFR (MDRD) Non-Af 88, BUN/Creatinine Ratio 21.2 H, Glucose 198 H, Calcium 8.6 04/21/25 06:40: POC Glucose 221 H Radiography Diagnostic Testing: Radiology Impression Hip X-Ray 04/20/25 17:40 IMPRESSION: Intact right hip arthroplasty. Left hip osteoarthrosis. Reading Location: [address] Physical Exam Narrative JOSE hose in place bilaterally SCDs in place bilaterally Dressing is clean, dry, intact. Right hip soft and supple. Dorsiflexion and plantarflexion are performed actively without pain or restriction Sensation intact light touch. Neurovascularly intact overall. Negative Homans bilaterally. 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 DVT prophylaxis: Patient will be restarting his regular dose of Coumadin. Patient will also be wearing JOSE hose for 2 weeks postoperatively. Patient was educated take JOSE hose off at nighttime and when he is to take shower. 2. Pain medications: Patient states that his pain is adequately controlled at this time. Patient is currently on Tylenol and oxycodone per primary care team. Pain management will continue to be managed by primary care team. OARRS reportwas reviewed today. 3. Constipation: Patient was instructed to take senna until first bowel movement and then can take as needed. Patient was educated if he has not had a bowel movement in 3 days to contact our office for reevaluation. 4. Physical therapy: Patient was educated that he will need to set up outpatient physical therapy. Patient was educated on posterior hip precautions in office today. Patient was educated he will need to follow posterior hip precautions for 6 weeks. Patient will be weightbearing as tolerated with his walker. 5. H&H: 12.1/35.7. Patient is currently afebrile and vitals are stable. 6. Reactive leukocytosis: White blood cell count is currently 16.6. Patient did receive Decadron intraoperatively. Patient is currently afebrile and vitalsare stable. 7. Incentive spirometry: Patient was encouraged to use incentive spirometer every hour that he is awake for the first week to x-ray his lungs and decrease risk postoperative lung infection. 8. Dressings: Patient was educated that he can get waterproof dressing wet on postop day 1. Patient was educated that he can remove dressing on postoperativeday 5. Patient was educated to leave open to air as long as clean, dry, intact. Patient was educated no soaking or submerging for 6 weeks. Patient was educated not to place any lotions, salves, oils over incision for 6 weeks. Patient voiced understanding. 9. Patient is to follow-up for postoperative instructions. 10. Patient will need a 2-week follow-up appointment for suture removal and wound check at [facility]. 11. Patient will be on famotidine for 30 days postoperatively. 12. Doxycycline: Patient will be on doxycycline for 2 weeks postoperatively dueto nature of revision surgery. Patient was educated on risk of sunburn while ondoxycycline. Patient was educated to take a probiotic while on doxycycline. Patient voiced understanding. 13. Disposition: Patient is okay for discharge from orthopedic services as longas pain maintains adequately controlled, has worked with and is cleared by physical therapy, and is okay per primary care team. Pain management will continue to be managed by primary care team. Patient was educated on the use ofdoxycycline postoperatively. Patient was educated on the use of outpatient physical therapy as well as posterior hip precautions that he would need to follow for 6 weeks. Patient will be weightbearing as tolerated with walker. Patient will need a follow-up appointment with our office in 2 weeks for suture removal. Patient was encouraged to call with any questions, concerns, new problems. All questions were answered to best my ability. 04/21/25 0746 <Electronically signed by Rosa RUIZ> Cosigner Signature (if applicable): CC: ~ Signed [facility] Work Phone: Progress note Author Marcelino Gracia [facility] Note Date/Time April 21, 2025 1 2:57pm [facility] Medical Records Department [address] [place] [address] Progress Note - Hospitalist 04/21/25 0835 MR#: [id number] Acct: [id number] Name: HATTIE VALDERRAMA Rep #:[id number] : 1945 80 From: Marcelino Gracia DO PCP: Dr. Neymar Xavier MD Status: ADM IN Location: [facility] [id number] Reason for Visit Chief Complaint: Right hip pain Subjective Subjective Feeling well. Objective Data Objective Data Vital Signs: Vital Signs Temp Pulse Resp BP Pulse Ox O2 Del Method O2 Flow Rate 36.6 C 101 H 16 111/67 97 Nasal Cannula 2 04/21/25 07:42 04/21/25 07:45 04/21/25 07:42 04/21/25 07:42 04/21/25 07:42 04/21/25 07:42 04/21/25 07:42 Oxygen Flow Rate (L/min) 2 Oxygen Delivery Method Nasal Cannula Weight: 100.7 kg Body Mass Index (BMI) 30.1 Intake & Output: Intake and Output for Last 24 Hours 04/19/25 04/20/25 04/21/25 23:59 23:59 23:59 Intake Total 1160 / 1160 Output Total 1200 / 1500 1300 / 1300 Balance -40 / -340 -1300 / -1300 Lab / Micro Data 04/21/25 04:42 04/21/25 04:42 Labs: Laboratory Results - last 24 hr 04/20/25 12:05: POC Glucose 143 H 04/20/25 21:53: POC Glucose 188 H 04/21/25 04:42: WBC 16.6 H, RBC 3.84 L, Hgb 12.1 L, Hct 35.7 L, MCV 93.0, MCH 31.5, MCHC 33.9, RDW Std Deviation 45.3 H, RDW Coeff of Risa 13.3, Plt Count 251,MPV 11.2, Immature Gran % (Auto) 0.400, Neut % (Auto) 87.2 H, Lymph % (Auto) 5.1L, Mora % (Auto) 7.2, Eos % (Auto) 0.0, Baso % (Auto) 0.1, Absolute Neuts (auto)14.5 H, Absolute Lymphs (auto) 0.84, Nucleated RBC % 0, PT 14.5, INR 1.1, [id number], Potassium 4.6, Chloride 98, Carbon Dioxide 22.6, Anion Gap 14, BUN 18, Creatinine 0.87, Estim Creat Clear Calc 84.57, Est GFR (MDRD) Non-Af 88, BUN/Creatinine Ratio 21.2 H, Glucose 198 H, Calcium 8.6 04/21/25 06:40: POC Glucose 221 H Radiography Diagnostic Testing: Radiology Impression Hip X-Ray 04/20/25 17:40 IMPRESSION: Intact right hip arthroplasty. Left hip osteoarthrosis. 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 Pt underwent revision both components right total hip replacement (2) Coagulopathy: PLAN: Iatrogenic (appropriately so). Resolved after vitamin K. Now, post surgery, pt to resume his warfarin. (3) Lytic bone lesions on xray: PLAN: Noted on chest CT from September 20 of this year in his right scapula. Patient had a CAT scan of his chest abdomen pelvis the next day on the that showed no report of that lytic lesion and no metastatic focus or anything in that nature. It was instructed the patient follow-up with further imaging in 6 months time but patient never did so. Will order CT of the chest without contrast. Discussed with machine packaging technician that CAT scan without contrast center looking at the lytic lesion would be fine. PLAN: Plan Diabetes mellitus type 2: Continue with glimepiride and metformin postsurgery. Atrial fibrillation: Resume warfarin and continue metoprolol VTE prophylaxis restart warfarin. Since INR is subtherapuetic given the vitamin K, we will utilize twice daily aspirin until INR is therapeutic CODE STATUS: Addressed with the patient. Patient wishes to be full code. 04/21/25 1157 <Electronically signed by Marcelino Gracia DO> Cosigner Signature (if applicable): CC: ~ Signed [facility] Work Phone: Reason for referral (narrative)* Consultation (Routine) - Authorized Specialty Diagnoses / Procedures Referred By Vikas coyne Referred To Contact Primary Care Diagnoses Type 2 diabetes mellitus without complication, without long-term current use of insulin (CMS/HCC) Psoriatic arthritis (CMS/HCC) Chronic atrial fibrillation, unspecified (CMS/HCC) Benign essential hypertension Hypercholesterolemia Hypertriglyceridemia Healthcare maintenance Procedures Follow Up In Primary Care Neymar Xavier MD [address] [place] [address] Referral ID Status Reason Start Date Expiration Date V isits Requested Visits Authorized [id number] Authorized 09/10/2022 03/09/2023 1 1 [facility] Work Phone: Reason for referral (narrative)No reason for referral information [facility]WSy[facility] Work Phone: Reason for visit Narrative* Imaging (Routine) - Authorized Specialty Diagnoses / Procedures Referred By Contac t Referred To Contact Radiology Diagnoses Abnormal CT scan of lung Procedures CT chest w IV contrast Neymar Xavier MD [address] [place] [address] Phone: tel: fax: Referral ID Status Reason Start Date Expiration Date Visits Requested Visits Authorized [id number] Authorized Perform Procedure 09/27/2024 09/27/2025 1 1 [facility] Work Phone: Rezlfg for visit Narrative* Imaging (Routine) - Pending Review Specialty Diagnoses / Procedures Referred By Contac t Referred To Contact Cardiology Diagnoses Left thigh pain Procedures Lower extremity venous duplex left Neymar Xavier MD [address] [place] [address] Phone: tel: fax: Referral ID Status Reason Start Date Expiration Date Visits Requested Visits Authorized [id number] Pending Review Perform Procedure 02/06/2025 02/06/2026 1 1 [facility] Work Phone: Reqvpm for visit Narrative* Imaging (Routine) - Authorized Specialty Diagnoses / Procedures Referred By Contac t Referred To Contact Radiology Diagnoses Left thigh pain Procedures XR femur left 2+ views Neymar Xavier MD [address] [place] [address] Phone: tel: fax: Referral ID Status Reason Start Date Expiration Date Visits Requested Visits Authorized [id number] Authorized Perform Procedure 02/06/2025 02/06/2026 1 1 [facility] Work Phone: Reason for visit Narrative* Imaging (Routine) - Authorized Specialty Diagnoses / Procedures Referred By Vikas coyne Referred To Contact Radiology Diagnoses Primary osteoarthritis of left hip Procedures MR hip left wo IV contrast Neymar Xavier MD [address] [place] [address] Phone: tel: fax: Referral ID Status Reason Start Date Expiration Date Visits Requested Visits Authorized [id number] Authorized Perform Procedure 02/13/2025 03/16/2026 1 1 [facility] Work Phone: Summary Purpose Family History Mother Name Dates Details Family history of [...] Dates Details Family history of type 2 shayrn betes mellitus(V18.0, Z83.3) Status:Active Family history of [...] No pertinent family history: Father(V49.89, Z78.9) Status:Active Relationship Condition Age at Onset Recorded Date/T jeff Not Specified Cardiac disease Unknown Advance Directives Advance Directive Response Recorded Date/ Time Living Will No September 20, 2024 5:57pm Do you have a Healthcare Power of Program Director [employer]? No September 20, 2024 5:57pm Advance Directive Response Recorded Date/ Time Living Will No September 20, 2024 9:10pm Do you have a Healthcare Power of Program Director [employer]? No September 20, 2024 9:10pm Advance Directive Response Recorded Date/ Time Do you have a Healthcare Power of Program Director [employer]? Yes April 19, 2025 12:36pm Chief Complaint 4 MONTH F/U LABS4 MO F/U WITH LABS NO COMPLAINTSMEDICARE WELLNESS WITH LABS PT HAS BLOOD SUGAR AND BLOOD PRESSURE LOG WITH HIMMEDICARE WELLNESS WITH LABS PT HAS BLOOD SUGAR [...] Neymar Xavier MD [address] [place] [address] Referral ID Status Reason Start Date Expiration Date Visits Requested Visits Authorized [id number] Pending Review Perform Procedure 3 10/04/2023 1 1 Referral ID Status Reason Start Date Expiration Date Visits Requested Visits Authorized [id number] Authorized Perform Procedure 3 10/04/2023 1 1 Specialty Diagnoses / Procedures Referred By Contac t Referred To Contact Diagnoses Pre-operative clearance Procedures ECG 12 Lead Kayla Muse PA-C [address] [place] [address] Referral ID Status Reason Start Date Expiration Date V isits Requested Visits Authorized [id number] Authorized 02/25/2024 02/24/2025 1 1 Specialty Diagnoses / Procedures Referred By Contac t Referred To Contact Radiology Diagnoses Pre-operative clearance Procedures XR chest 2 views Kayla Muse PA-C [address] [place] [address] Referral ID Status Reason Start Date Expiration Date Visits Requested Visits Authorized [id number] Authorized Perform Procedure 02/24/2024 02/23/2025 1 1 [...] 2024 7: 56pm Overweight (BMI 25.0-29.9) September 20, 2 025 7:56pm Sepsis September 20, 2024 7:5 [...] 1pm Lytic bone lesions on xray September 20 025 8:11pm Multifocal pneumonia September 20, 2024 8: 11pm Overweight (BMI 25.0-29.9) September 20 025 8:11pm Pneumonia September 20, 2024 8:1 1pm Sepsis September 20, 2024 8:1 1pm COPD exacerbation September 20, 2024 8:1 1pm Chief Complaint Admit Date HIP FRACTURE April 19, 2025 1 1:26am HIP FRACTURE April 19, 2025 2 :57pm HIP FRACTURE April 20, 2025 2 :23pm HIP FRACTURE April 21, 2025 8 :35am Reason for Visit Admit Date Coagulopathy April 19, 2025 1 1:26am Prosthetic hip implant failure March 302024 11:26am Status 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 April 19, 2025 11:26am Anemia due to chronic illness April 192024 11:26am Anticoagulant long-term use March 11:26am Atrial fibrillation April 19, 2025 1 1:26am History of hypertension April 19 11:26am Hyperglycemia due to type 2 diabetes francesco litus April 19, 2025 11:26am Lytic bone lesions on xray April 19, 2025 11:26am Additional Source Comments (unrecognized sect ion and content) No Status Records FoundNo Status Records FoundNo Status Records FoundNo Status Records FoundNo Status Records FoundNo Status Records FoundNo Status Records FoundNo Status Records FoundNo Status Records Found INFORMATION SOURCE (unrecogn ized section and content) DATE CREATED AUTHOR 05/07/2019 [facility] DATE CREATED AUTHOR AUTHOR'S ORGANIZ ATION 05/16/2022 [employer] DATE CREATED AUTHOR AUTHOR'S ORGANIZ ATION 09/04/2022 [facility] DATE CREATED AUTHOR AUTHOR'S ORGANIZ ATION 02/19/2023 [facility] DATE CREATED AUTHOR AUTHOR'S ORGANIZ ATION 07/10/2024 [facility] DATE CREATED AUTHOR AUTHOR'S ORGANIZ ATION 02/15/2025 [facility] DATE CREATED AUTHOR AUTHOR'S ORGANIZ ATION 05/06/2025 [facility] DATE CREATED AUTHOR AUTHOR'S ORGANIZ ATION 05/06/2025 [facility] DATE CREATED AUTHOR AUTHOR'S ORGANIZ ATION 05/07/2025 [facility] Reason for Visit (unrecogniz ed section and [...] Neymar Xavier MD [address] [place] [address] Referral ID Status Reason Start Date Expiration Date V isits Requested Visits Authorized [id number] Authorized 09/10/2022 03/09/2023 1 1 Reason Comments Follow-up Pt co left hand swel ling Reason Comments Follow-up 4 MONTH F/U WITH LAB S. MAGNESIUM OXIDE ON BACKORDER WITH [facility] - HAS BEEN OUT OF MED SINCE LAST WEEK. Specialty Diagnoses / Procedures Referred By Vikas coyne Referred To Contact Cardiology Diagnoses Localized swelling on left hand Procedures Vascular US upper extremity venous duplex left Neymar Xavier MD [address] [place] [address] Referral ID Status Reason Start Date Expiration Date Visits Requested Visits Authorized [id number] Authorized Perform Procedure 3 10/04/2023 1 1 Reason Comments Follow-up [facility] [place] [facility] Reason Comments Follow-up 4 mo fu lab Reason Comments Follow-up [facility] [place] [place] [facility] TODAY Reason Comments Follow-up PT NEEDS CLEARANCE F OR EYE PROCEDURE Specialty Diagnoses / Procedures Referred By Contac t Referred To Contact Diagnoses Pre-operative clearance Procedures ECG 12 Lead Kayla Muse PA-C [address] [place] [address] Referral ID Status Reason Start Date Expiration Date V isits Requested Visits Authorized [id number] Authorized 02/25/2024 02/24/2025 1 1 Specialty Diagnoses / Procedures Referred By Contac t Referred To Contact Radiology Diagnoses Pre-operative clearance Procedures XR chest 2 views Kayla Muse, BRENNONC [address] [place] [address] Referral ID Status Reason Start Date Expiration Date Visits Requested Visits Authorized [id number] Authorized Perform Procedure 02/24/2024 02/23/2025 1 1 [...] Comments Follow-up 1 MONTH FU + LABS Reason Comments Hospital Follow-up 04/19/25-R hip Care Teams (unrecognized sec tion and content) Team Status: Active Member Role Status Dates Dr. Neymar Xavier MD Primary Care Provider Activ e Team Status: Inactive Member Role Status Dates Dr. Stone Leong , Emergency Provider Activ e Start: September 20, 2024 End: September 22, 2024 Dr. Neymar Xavier MD Primary Care Provider Activ e Start: September 20, 2024 End: September 22, 2024 Dr. Zeferino Estrada , DO Admit Provider Active Start: September 20, 2024 End: September 22, 2024 Dr. Zeferino Estrada , DO Other Provider Active Start: September 20, 2024 End: September 22, 2024 Dr. Marcelino Gracia , Attending Provider Active Start: September 20, 2024 End: September 22, 2024 Dr. Jason Holland MD Other Provider Active Start: September 20, 2024 Dr. Sameer Rogers MD Other Provider Active Start: September 20, 2024 Dr. Suraj High MD Other Provider Active Star t: September 20, 2024 Dr. Garrett Ambrocio DO Other Provider Active Start : September 20, [...] art: September 20, 2024 Dr. Jurgen Leblanc DO Other Provider Active Start: September 20, 2024 Dr. Jonathan Long MD Other Provider Active Star t: September 20, 2024 Dr. Gonzales Castle MD Other Provider Active Sta rt: September 20, 2024 Team Status: Active Member Role Status Dates Dr. Stone Leong , Emergency Provider Activ e Start: September 21, 2024 Dr. Neymar Xavier MD Primary Care Provider Activ e Start: September 21, 2024 Dr. Zeferino Estrada , DO Admit Provider Active Start: September 21, 2024 Dr. Zeferino Estrada , DO Other Provider Active Start: September 21, 2024 Dr. Marcelino Gracia , Attending Provider Active Start: September 21, 2024 Dr. Marcelino Gracia , DO Other Provider Active Star t: September 21, 2024 Dr. Jason Holland MD Other Provider Active Start: September 21, 2024 Dr. Sameer Rogers MD Other Provider Active Start: September 21, 2024 Dr. Suraj High MD Other Provider Active Star t: September 21, 2024 Dr. Garrett Ambrocio , Other Provider Active Start : September 21, [...] art: September 21, 2024 Dr. Jurgen Leblanc DO Other Provider Active Start: September 21, [...] September 22, 2024 Dr. Zeferino Estrada , Admit Provider Active Start: September 22, 2024 Dr. Zeferino Estrada , Other Provider Active Start: September 22, 2024 Dr. Marcelino Gracia , Attending Provider Active Start: September 22, 2024 Dr. Marcelino Gracia , Other Provider Active Star t: September 22, 2024 Bottom Presser Relationship Specialty Start Date End Date Neymar Xavier MD [address] [place] [address] PCP - General 03/11/19 Neymar Xavier MD [address] [place] [address] PCP - [employer] Medicare Advantage PCP 06/29/21 Bottom Presser Relationship Specialty Start Date End Date Neymar Xavier MD [address] [place] [address] PCP - General 03/11/19 Neymar Xavier MD [address] [place] [address] PCP - [employer] Medicare Advantage PCP 06/29/21 Bottom Presser Relationship Specialty Start Date End Date eNymar Xavier MD [address] [place] [address] PCP - General 03/11/19 Neymar Xavier MD [address] [place] [address] PCP - [employer] Medicare Advantage PCP 06/29/21 Bottom Presser Relationship Specialty Start Date End Date Neymar Xavier MD [address] [place] [address] PCP - General 03/11/19 Neymar Xavier MD [address] [place] [address] PCP - [employer] Medicare Advantage PCP 06/29/21 Bottom Presser Relationship Specialty Start Date End Date Neymar Xavier MD [address] [place] [address] PCP - General 03/11/19 Neymar Xavier MD [address] [place] [address] PCP - [employer] Medicare Advantage PCP 06/29/21 Bottom Presser Relationship Specialty Start Date End Date Neymar Xavier MD [address] [place] [address] PCP - General 03/11/19 Neymar Xavier MD [address] [place] [address] PCP - [employer] Medicare Advantage PCP 06/29/21 Bottom Presser Relationship Specialty Start Date End Date Neymar Xavier MD [address] [place] [address] PCP - General 03/11/19 Neymar Xavier MD [address] [place] [address] PCP - [employer] Medicare Advantage PCP 06/29/21 Bottom Presser Relationship Specialty Start Date End Date Neymar Xavier MD [address] [place] [address] PCP - General 03/11/19 Neymar Xavier MD [address] [place] [address] PCP - [employer] Medicare Advantage PCP 06/29/21 Bottom Presser Relationship Specialty Start Date End Date Neymar Xavier MD [address] [place] [address] PCP - General 03/11/19 Neymar Xavier MD [address] [place] [address] PCP - [employer] Medicare Advantage PCP 06/29/21 Team Status: Active Member Role Status Dates Dr. Stone Leong DO Emergency Provider Activ e Start: September 20, 2024 Dr. Neymar Xavier MD Primary Care Provider Activ e Start: September 20, 2024 Dr. Zeferino Estrada DO Admit Provider Active Start: September 20, 2024 Dr. Zeferino Estrada , Attending Provider Active Start: September 20, 2024 Bottom Presser Relationship Specialty Start Date End Date Neymar Xavier MD [address] [place], [place] [id number] PCP - General 03/11/19 Neymar Xavier MD [address] [place] [address] PCP - [employer] Medicare Advantage PCP 06/29/21 Diann Dumont, RN [employer] Services Consultant 09/23/24 Bottom Presser Relationship Specialty Start Date End Date Neymar Xavier MD [address] [place] [address] PCP - General 03/11/19 Neymar Xavier MD [address] [place] [address] PCP - [employer] Medicare Advantage PCP 06/29/21 Diann Dumont, RN [employer] Services Consultant 09/23/24 Bottom Presser Relationship Specialty Start Date End Date Neymar Xavier MD [address] [place] [address] PCP - General 03/11/19 Neymar Xavier MD [address] [place] [address] PCP - [employer] Medicare Advantage PCP 06/29/21 Diann Dumont, RN [employer] Services Consultant 09/23/24 Bottom Presser Relationship Specialty Start Date End Date Neymar Xavier MD [address] [place] [address] PCP - General 03/11/19 Neymar Xavier MD [address] [place] [address] PCP - [employer] Medicare Advantage PCP 06/29/21 Bottom Presser Relationship Specialty Start Date End Date Neymar Xavier MD [address] [place] [address] PCP - General 03/11/19 Neymar Xavier MD [address] [place] [address] PCP - [employer] Medicare Advantage PCP 06/29/21 Bottom Presser Relationship Specialty Start Date End Date Neymar Xavier MD [address] [place] [address] PCP - General 03/11/19 Neymar Xavier MD [address] [place] [address] PCP - [employer] Medicare Advantage PCP 06/29/21 Bottom Presser Relationship Specialty Start Date End Date Neymar Xavier MD [address] [place] [address] PCP - General 03/11/19 Neymar Xavier MD [address] [place] [address] PCP - [employer] Medicare Advantage PCP 06/29/21 Bottom Presser Relationship Specialty Start Date End Date Neymar Xavier MD [address] [place] [address] PCP - General 03/11/19 Neymar Xavier MD [address] [place] [address] PCP - [employer] Medicare Advantage PCP 06/29/21 Bottom Presser Relationship Specialty Start Date End Date Neymar Xavier MD [address] [place] [address] PCP - General 03/11/19 Neymar Xavier MD [address] [place] [address] PCP - [employer] Medicare Advantage PCP 06/29/21 Diann Dumont, RN [employer] T[employer] Services Consultant 04/24/25 Team Status: Active Member Role/Relationship Status Dates Dr. Neymar Xavier MD Primary care physician Stacy bennett Team Status: Inactive Member Role/Relationship Status Dates Dr. Neymar Xavier MD Primary care physician Actgabriel ve Start: April 19, 2025 End: April 21, 2025 Dr. Jaydon Barney MD Emergency Department Physician Active Start: April 19, 2025 End: April 21, 2025 Dr. Marcelino Gracia DO Admitting physician Active Start: April 19, 2025 End: April 21, 2025 Dr. Marcelino Gracia DO Attending physician Active Start: April 19, 2025 End: April 21, 2025 Dr. Hugo Bradley MD Nurse Practitioner Active Start: April 19, 2025 End: April 21, 2025 Team Status: Active Member Role/Relationship Status Dates Dr. Neymar Xavier MD Primary care physician Acti ve Start: April 19, 2025 Dr. Jaydon Barney MD Emergency Department Physician Active Start: April 19, 2025 Dr. Marcelino Gracia DO Admitting physician Active Start: April 19, 2025 Dr. Marcelino Gracia DO Attending physician Active Start: April 19, 2025 Dr. Marcelino Gracia DO Nurse Practitioner Active Start: April 19, 2025 Dr. Hugo Bradley MD Nurse Practitioner Active Start: April 19, 2025 Team Status: Active Member Role/Relationship Status Dates Dr. Neymar Xavier MD Primary care physician Acti ve Start: April 20, 2025 Dr. Jaydon Barney MD Emergency Department Physician Active Start: April 20, 2025 Dr. Marcelino Gracia DO Admitting physician Active Start: April 20, 2025 Dr. Marcelino Gracia DO Attending physician Active Start: April 20, 2025 Dr. Marcelino Gracia DO Nurse Practitioner Active Start: April 20, 2025 Dr. Hugo Bradley MD Nurse Practitioner Active Start: April 20, 2025 Team Status: Active Member Role/Relationship Status Dates Dr. Neymar Xavier MD Primary care physician Acti ve Start: April 21, 2025 Dr. Jaydon Barney MD Emergency Department Physician Active Start: April 21, 2025 Dr. Marcelino Gracia DO Admitting physician Active Start: April 21, 2025 Dr. Marcelino Gracia DO Attending physician Active Start: April 21, 2025 Dr. Marcelino Gracia DO Nurse Practitioner Active Start: April 21, 2025 Dr. Hugo Bradley MD Nurse Practitioner Active Start: April 21, 2025 Goals (unrecognized section and content) Goals may [...] BE BASED ON THE PRIMARY CLINICAL RECORDS. [facility]. provides no warranty or guarantee of the accuracy or completeness of information in this document.
--- NOTE | 2025-05-13 23:40 | RAD_ITS ---
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 Soft tissues: Soft tissues are unremarkable. Moderate colonic stool burden suggesting constipation. RAD/HIP, UNI W/ Pelvis 2-3 Views IMPRESSION: Interval reduction of the right hip arthroplasty dislocation, now with normal a lignment. No acute fractures. Reading [facility]
[2025-05-14] VITALS: BP 121/62; PULSE 95; RESP 21; TEMP 36.8; O2SAT 97
== END 2025-05-14 00:11 | disposition home or self-care (01) ==
PROVIDERS: Emergency Provider Emergency Medicine; PCP Internal Medicine; Visit Provider Emergency Medicine
DX: S73.004A Unspecified dislocation of right hip, initial encounter (principal); E11.9 Type 2 diabetes mellitus without complications; Z87.891 Personal history of nicotine dependence; I10 Essential (primary) hypertension; X58.XXXA Exposure to other specified factors, initial encounter
CPT/HCPCS: 28665; 73502; 96374; 99152; 99285; A4216